=== PATIENT | female | born 1945 | race Caucasian/White ===

== ENCOUNTER 2016-09-09 12:46 | Outpatient (CLI) ==
[2015-12-17 17:36] VITALS: BMI 34.7
--- NOTE | 2016-09-10 02:56 | MRI ---
EXAM: MRI lumbar spine without IV contrast. DATE: 09/09/2016. HISTORY: Lumbar back pain radiating to right hip area. TECHNIQUE: Sagittal and axial T1W and T2W sequences of the lumbar spine along with sagittal IR and coronal T2W sequences were obtained using 1.2 Sonia magnet. No IV contrast. COMPARISON: CT L-spine 01/30/2014. MRI L-spine 08/08 2014. FINDINGS: There are five [id number] lumbar vertebra. A 22 degree leftward curvature of the art mbar spine is present, with the apex of curvature at L2-3. A 3.5 mm anterior subluxation of L1 rela tive to T12, a 2 mm anterolisthesis of L3 relative to L4, a 2.2 mm anterolisthesis of L4 relative to L5 are similar to previous MRI. No other subluxation, acute fracture, osseous malignancy, or pars i nterarticularis defect is identified. Moderate/large osteophytes are observed in the thoracolumbar spine. Small limbus body is demonstrated at the anterior aspect superior endplate of L5. Minor ant erior wedging of the T11 vertebral body is chronic. Spinous process arthritis is noted at L3-4 and L4-5. Bone marrow signal is overall normal. Chronic Schmorl's node at L3 inferior endplate is rede monstrated. Mild T10-11, mild T11-12: Mild T12-L1, minor L2-3, moderate L4-5, and marked L5-S1 dis c space narrowing is detected. No sacral fracture or stress reaction is evident. SI joints are unr emarkable. Conus medullaris terminates at L1. Visible spinal cord is normal. No retroperitoneal lymphadenopathy, paraspinal mass, or aortic aneurysm is detected. Atheroscleroti c plaques are scattered in the aortic wall. Psoas muscles are normal. There is mild upper lumbar a nd moderate lower lumbar bilateral posterior paraspinal muscle atrophy. Right lobe liver measures g reater than 17 cm in length, without distinct hepatic neoplasm. Visible portions of the liver, sple en, adrenal glands and kidneys reveal no distinct abnormality; however, these structures are limited by breathing motion artifacts. Segmental analysis: T10-11: Sagittal images reveal moderate concentric disc bulge, mild bilateral facet arthropathy and ligamentum flavum hypertrophy causing moderate central canal stenosis, and probable moderate/marked right and moderate left foraminal stenosis. Foramina are not completely visualized. T11-12: Sagittal images reveal small concentric disc bulge, mild facet arthropathy, and mild right foraminal stenosis. No central canal stenosis. T12-L1: Mild anterior subluxation of L1, moderate concentric disc bulge, mild facet arthropathy and dorsal epidural fat cause mild central canal stenosis, moderate right foraminal stenosis, and marke d left foraminal stenosis. L1-2: Small bilobed posterior to foraminal disc bulge, moderate facet arthropathy, mild ligamentum flavum hypertrophy and dorsal epidural fat cause triangulation of the canal, mild right foraminal st enosis, and minor left foraminal encroachment. L2-3: Small concentric disc bulge, moderate bilateral facet arthropathy, and mild ligamentum flavum hypertrophy cause mild central canal stenosis, mild right foraminal stenosis, and minor left forami nal narrowing. L3-4: Minor anterior subluxation of L3, moderate right facet arthropathy, marked left facet arthrop athy, and moderate ligamentum flavum hypertrophy cause mild central canal stenosis, mild right robbie inal stenosis, and minor left foraminal narrowing. L4-5: Minor anterior subluxation of L4, small concentric disc bulge, mild right facet arthropathy, moderate left facet arthropathy, and moderate ligamentum flavum hypertrophy cause mild central canal stenosis and mild bilateral foraminal stenoses. Each L4 nerve root contacts the disc bulge lateral to the foramen. L5-S1: Posterior midline to left foraminal disc bulge, superimposed midline disc protrusion (4 mm A P x 14 mm transverse), minor right facet arthropathy and mild/moderate left facet arthropathy cause mild central canal stenosis and marked left foraminal stenosis superiorly (with compression of the e xiting left L5 nerve root in the foramen). The disc protrusion contacts each S1 nerve root as the n erves or exiting the thecal sac. IMPRESSIONS: 1. Thoracolumbar moderate levoscoliosis, moderate spondylosis, multilevel facet arthropathy, minor subluxations due to facet disease, and multilevel DDD - - similar to July 2014. 2. Multilevel foraminal stenosis. Bilateral L4 and left L5 nerve roots compromised near the forame n, and could be sources for pain/radiculopathy. 3. Multilevel central canal stenosis (T10-11: Moderate. T12-L1: Mild. L1-2: Triangulation of marcel l. L2-3: Mild. L3-4: Mild. L4-5: Mild. L5-S1: Mild). 4. Spinous process arthritis (mild). 5. Small, chronic Schmorl's node at L3. 6. Hepatomegaly - similar to January 2014. 7. Abdominal aortic atherosclerosis (mild).
== END 2016-09-09 12:47 | disposition home or self-care (01) ==
LOC: RAD 12:46
PROVIDERS: ATTEND Internal Medicine
DX: M54.5 Low back pain (principal)

== ENCOUNTER 2016-10-12 13:00 | Outpatient (RCR) ==
[2015-12-17 17:36] VITALS: BMI 34.7
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
--- NOTE | 2016-10-06 12:52 | RS.OPPTDN ---
Subjective Date of Note: 10/06/16 Visit #: 2 Date of Evaluation: 09/30/16 Payer Source: MEDICARE Treatment Diagnosis: Lumbago Current Subjective/complaints:: Patient reports no pain at rest if still,but pain is present if she changes positions,especially with rotation . Pain Assessment - Pain Description Pain Location: right low back/hip Pain Description: Chronic Current Pain Intensity: not rated Other Comments regarding Pain:: More on the R lumbar and hip today - Treatment Modality: Ultrasound Parameters/Method Applied: 10 mins. @ 1.5 w/cm2 to lumbar,continuous mode. Patient Position: Left Sidelying - Heat/Cryotherapy Treatment: Hot Pack (20 mins. prior to US.) Interventions - Exercise/Activities/Manual Therapy Exercises/Activities: 15 mins. total ,patient education and lumbar AAROM: Alternating KTC, LTR and posterior pelvic tilt ,90/90 hamstring stretches. Total minutes of Exercise: 15 Manual Therapy: NA Total minutes of Manual Therapy: 0 HOME EXERCISE PROGRAM: Pelvic tilts,SKTC,LTR,hamstring stretches in PAIN FREE ROM. - Charges Total Direct Minutes: 25 Total Treatment Time: 45 Procedures billed for this date of service:: hp,US,ex 1 Assessment: Patient has good hamstring extensibility bilaterally today,also tolerates LTR in hooklying position.She repirts feeling relief and "looser" as she exits clinic.She is attentive and motivated to improve,understands to not push through sharp pain as she exercises. Patient Education: Education of diagnosis, Body/Joint mechanics, Home Exercise Program, Home Safety, Activity Modification, Education of Plan of Care Patient demonstrates compliance with HEP?: Yes Short Term Goals Goal #1: Pain intermittent in nature. Goal to be met by: 10/15/16 Progress towards Goal:: Progressing Goal #2: Patient to ambulate with erect posture. Goal to be met by: 10/15/16 Goal #3: Lumbar AROM WFLs with minimal pain. Goal to be met by: 10/15/16 Progress towards Goal:: Progressing Goal #4: Independent with basic HEP. Goal to be met by: 10/15/16 Progress towards Goal:: Progressing Jail Goals Goal #1: Patient independent in advanced HEP for DC. Goal to be met by: 10/29/16 Goal #2: Score on Oswestry LBP scale improved to 25. Goal to be met by: 10/29/16 Goal #3: Patient ambulates with equal WB & WS. Goal to be met by: 10/29/16 Goal #4: Patient able to sleep without interruption from low back pain. Goal to be met by: 10/29/16 Plan PLAN OF CARE EXPIRES ON:: 10/29/16 ORDER # VISITS AND/OR THROUGH DATE: 10/29/2016 PLAN: Continue Plan of Care
--- NOTE | 2016-10-08 11:36 | RS.CXNS ---
Date of scheduled appointment: 10/08/16 Type: Cancel Reason for Cancel/NS: sick
--- NOTE | 2016-10-12 13:58 | RS.OPPTDN ---
Subjective Date of Note: 10/12/16 Visit #: 3 Date of Evaluation: 09/30/16 Payer Source: MEDICARE Treatment Diagnosis: Lumbago Current Subjective/complaints:: Reports not feeling as well this week.Her pain is mostly in the R lumbar and R hip region.She requests abbreviated today due to another appt. after PT. Pain Assessment - Pain Description Pain Location: right low back/hip Pain Description: Dull, Aching, Chronic Current Pain Intensity: 01/31 - Treatment Modality: Ultrasound Parameters/Method Applied: 10 mins. @ 1.5 w/cm2,continuous mode to lumbar and R gluteals. - Heat/Cryotherapy Treatment: Hot Pack (20 mins. prior to US) Interventions - Exercise/Activities/Manual Therapy Exercises/Activities: N/A today(due to patient having another appt.). Total minutes of Exercise: 0 Manual Therapy: NA Total minutes of Manual Therapy: 0 HOME EXERCISE PROGRAM: Pelvic tilts,SKTC,LTR,hamstring stretches in PAIN FREE ROM. - Charges Total Direct Minutes: 10 Total Treatment Time: 30 Procedures billed for this date of service:: hp,US Assessment: Patient reports relief after haet,modalities today.We discussed to continue her HEP in pain free ROM.No exercises done at this session due to patient having another appt. Patient Education: Education of diagnosis, Body/Joint mechanics, Home Exercise Program, Home Safety, Activity Modification, Education of Plan of Care Short Term Goals Goal #1: Pain intermittent in nature. Goal to be met by: 10/15/16 Progress towards Goal:: Progressing Goal #2: Patient to ambulate with erect posture. Goal to be met by: 10/15/16 Goal #3: Lumbar AROM WFLs with minimal pain. Goal to be met by: 10/15/16 Progress towards Goal:: Progressing Goal #4: Independent with basic HEP. Goal to be met by: 10/15/16 Progress towards Goal:: Progressing Hand Clipper Goals Goal #1: Patient independent in advanced HEP for DC. Goal to be met by: 10/29/16 Goal #2: Score on Oswestry LBP scale improved to 25. Goal to be met by: 10/29/16 Goal #3: Patient ambulates with equal WB & WS. Goal to be met by: 10/29/16 Goal #4: Patient able to sleep without interruption from low back pain. Goal to be met by: 10/29/16 Plan PLAN OF CARE EXPIRES ON:: 10/29/16 ORDER # VISITS AND/OR THROUGH DATE: 10/29/2016 PLAN: Continue Plan of Care
--- NOTE | 2016-10-21 13:09 | RS.CSNOTE ---
PT Case Note Date of Note: 10/21/16 Title of document: Patient status and D/C plan Note: Patient seen for eval. and 2 visits.Patient was admitted to hospital,then discharged home ,but no PT appts. made.
--- NOTE | 2016-11-12 13:14 | RS.QUICKDC ---
Discharge from PT Date of Discharge: 10/21/16 Number of Visits: 3 Reason for Discharge: Patient attended the initial evaluation and 2 additional treatment sessions. She was hospitalized and afterward, did not make any further appointments. Plan of care not complete and goals not met due to lack of attendance. Patient discharged at this time. Mobility D/c CL. Mobility Goal CK
== END 2016-10-22 ==
PROVIDERS: ATTEND Internal Medicine
DX: M54.5 Low back pain (principal); G89.29 Other chronic pain

== ENCOUNTER 2016-10-13 14:14 | Inpatient (IN) | payer OTHER ==
[2016-10-13] MEDS ORDERED: TYLENOL PO PRN (14:40)
[2016-10-13] MEDS ORDERED: MORPHINE 4 MG/ML SYRINGE IVP PRN (14:40)
[2016-10-13] MEDS ORDERED: NITROSTAT SL PRN (14:40)
[2016-10-13] MEDS ORDERED: ATROPINE SULFATE PFS IVP PRN (14:40)
[2016-10-13] MEDS ORDERED: VISTARIL INJ IM PRN (14:40)
[2016-10-13 14:52] VITALS: BMI 32.5
[2016-10-13] MEDS: DEXTROSE 5%-1/2NS IV SOLUTION 1,000 ML IV SCH (15:13)
[2016-10-13 15:22] LABS: BASOPHILS % (AUTO) 0.8 % (0.0-3.0); EOSINOPHILS # (AUTO) 0.1 K/ul (0.0-0.7); EOSINOPHILS % (AUTO) 2.7 % (0.0-7.0); HEMATOCRIT 40.7 % (37.0-47.0); HEMOGLOBIN 14.1 g/dl (12.0-16.0); IMMATURE GRANULOCYTE % (AUTO) 0.2 % (0.0-5.0); LYMPHOCYTES # (AUTO) 1.7 K/uL (0.60-3.4); LYMPHOCYTES % (AUTO) 35.4 (10.0-50.0); MEAN CORPUSCULAR HEMOGLOBIN 31.4 pg (27.0-31.0); MEAN CORPUSCULAR HGB CONC 34.6 (31.8-35.4); MEAN CORPUSCULAR VOLUME 90.6 fl (81.0-99.0); MONOCYTES # (AUTO) 0.4 K/uL (0.4-2.0); MONOCYTES % (AUTO) 8.8 (0-10); NEUTROPHILS # (AUTO) 2.5 K/ul (2.0-6.9); NEUTROPHILS % (AUTO) 52.1; PLATELET COUNT 259 10^3/uL (140-440); RED BLOOD COUNT 4.49 10^6/ul (4.20-5.40)
[2016-10-13] MEDS: VALIUM PO SCH ×2 (15:28→20:30)
[2016-10-13 16:13] LABS: CREATININE 1.03 mg/dL (0.60-1.30)
[2016-10-13] MEDS ORDERED: FLEXERIL PO PRN (16:13)
[2016-10-13] MEDS ORDERED: PROAIR HFA IH PRN (16:13)
[2016-10-13 16:30] LABS: ALANINE AMINOTRANSFERASE 9 U/L (12-78); ALBUMIN 3.8 g/dL (3.4-5.0); ALBUMIN/GLOBULIN RATIO 1.27; ALKALINE PHOSPHATASE 93 U/L (53-141); ANION GAP 11.2; ASPARTATE AMINO TRANSFERASE 11 U/L (15-37); BILIRUBIN,TOTAL 0.84 mg/dL (0.00-1.20); BLOOD UREA NITROGEN 12 mg/dL (7-18); BUN/CREATININE RATIO 11.65; CALCIUM 9.2 mg/dL (8.2-10.2); CARBON DIOXIDE 26 mmol/L (23-31); CHLORIDE 101 mmol/L (98-107); CREATINE KINASE 87 U/L; GLUCOSE 140 mg/dL (82-115); MYOGLOBIN 36 ng/ml; POTASSIUM 4.2 mmol/L (3.5-5.10); SODIUM 134 mmol/L (136-145); TOTAL PROTEIN 6.8 g/dL (5.8-8.1)
--- NOTE | 2016-10-13 16:51 | DI ---
EXAM: CHEST FRONTAL AND LATERAL VIEWS HISTORY: Chest pain. COMPARISON: 01/30/2016 FINDINGS: Heart size is upper limit normal, stable. Mild aortic ectasia. Mild hyperinflation. Ch ronic-appearing interstitial changes. No acute infiltrates are seen. There is no consolidation, vis ible pleural fluid or pneumothorax. Bones reveal no acute fracture. IMPRESSION: No acute cardiopulmonary process.
[2016-10-13] MEDS: NORCO 10-325 PO SCH ×2 (17:20→20:30)
--- NOTE | 2016-10-13 18:49 | MRI ---
EXAM: Brain MRI with and without intravenous contrast. HISTORY: Lightheadedness. COMPARISON: Brain MRI 10/15/2008. TECHNIQUE: Multiplanar, multisequence MR images were acquired of the brain before and after adminis tration of intravenous contrast. FINDINGS: The midline structures are central and there is a tim cisterna magna. The ventricles and sulci are generally normal in size. There are no abnormal extra-axial fluid collections. The brain parenchyma has no diffusion restriction to suggest acute hypoperfusion or infarction. Ther e is a thin rim of periventricular T2 hyperintensity. Small T2 hyperintensities are present in the supratentorial white matter and and juana. These findings are consistent with mild leukomalacia whic h has progressed compared to 10/15/2008. There is no abnormal dark gradient echo signal. After adm inistration of contrast, no enhancing lesions are identified. The corpus callosum is normal. The pi tuitary gland is small with homogeneous contrast enhancement. The infundibulum is midline. There are no intraorbital masses. There has been previous lens surgery bilaterally. Focal mucosal thickening is present in a posterior left ethmoid air cell. Remainder of the paranasa l sinuses, middle ears and mastoids are clear. There is no abnormal contrast enhancement in the int ernal auditory canals or labyrinthine structures. Flow voids are present in the major intracranial arteries and dural venous sinuses. IMPRESSION: 1. Mild leukomalacia likely due to chronic ischemic small vessel disease which has progressed nestor red to the prior MRI. 2. No intracranial mass, hemorrhage or acute cerebral infarct.
[2016-10-13 20:43] LABS: BILIRUBIN,URINE Negative (NEGATIVE); KETONES,URINE Negative (NEGATIVE); LEUKOCYTE ESTERASE ,URINE Negative (NEGATIVE); NITRITE,URINE Negative (NEGATIVE); PROTEIN,URINE Negative (NEGATIVE); URINE, BLOOD Negative (NEGATIVE)
[2016-10-13 20:44] LABS: ADD URINE MICROSCOPIC NO
[2016-10-13 23:10] LABS: CREATINE KINASE 79 U/L; MYOGLOBIN 35 ng/ml
--- NOTE | 2016-10-13 23:15 | US ---
EXAM: Carotid ultrasound. HISTORY: Long-term tobacco use, weakness, dizziness, hypertension COMPARISON: None. FINDINGS: Right cervical carotid: There is minimal atherosclerotic plaque in the right internal puentes tid artery. Peak systolic velocity right ICA 0.7 meters per second. Velocity right CCA 0.6 meters per second. Velocity ratio right ICA: CCA 1.2. Left cervical carotid: There is minimal atherosclerotic plaque in the left internal carotid artery. Peak systolic velocity left ICA 0.8 meters per second. Velocity left CCA 0.6 meters per second. V elocity ratio left ICA: CCA 1.2. IMPRESSION: 1. There is mild atherosclerotic plaque in the right internal carotid artery. There is less than 5 0% stenosis of the right internal carotid artery. 2. There is mild atherosclerotic plaque in the left internal carotid artery. There is less than 50 % stenosis of the left internal carotid artery. 3. Vascular flow in the right and left vertebral artery is antegrade.
[2016-10-14] MEDS: DEXTROSE 5%-1/2NS IV SOLUTION 1,000 ML IV SCH ×2 (04:02→16:56)
[2016-10-14] MEDS: VALIUM PO SCH ×3 (05:16→21:50)
[2016-10-14 05:54] LABS: BASOPHILS % (AUTO) 0.8 % (0.0-3.0); EOSINOPHILS # (AUTO) 0.2 K/ul (0.0-0.7); EOSINOPHILS % (AUTO) 4.8 % (0.0-7.0); HEMATOCRIT 39.9 % (37.0-47.0); HEMOGLOBIN 13.7 g/dl (12.0-16.0); IMMATURE GRANULOCYTE % (AUTO) 0.4 % (0.0-5.0); LYMPHOCYTES # (AUTO) 1.8 K/uL (0.60-3.4); LYMPHOCYTES % (AUTO) 37.4 (10.0-50.0); MEAN CORPUSCULAR HEMOGLOBIN 31.1 pg (27.0-31.0); MEAN CORPUSCULAR HGB CONC 34.3 (31.8-35.4); MEAN CORPUSCULAR VOLUME 90.5 fl (81.0-99.0); MONOCYTES # (AUTO) 0.5 K/uL (0.4-2.0); MONOCYTES % (AUTO) 10.1 (0-10); NEUTROPHILS # (AUTO) 2.2 K/ul (2.0-6.9); NEUTROPHILS % (AUTO) 46.5; PLATELET COUNT 229 10^3/uL (140-440); RED BLOOD COUNT 4.41 10^6/ul (4.20-5.40); WHITE BLOOD COUNT 4.76 K/ul (4.6-10.2)
[2016-10-14 06:06] LABS: ALBUMIN 3.4 g/dL (3.4-5.0); ALBUMIN/GLOBULIN RATIO 1.31; BILIRUBIN,TOTAL 0.88 mg/dL (0.00-1.20); BUN/CREATININE RATIO 13.51; CALCIUM 8.8 mg/dL (8.2-10.2); CREATININE 0.74 mg/dL (0.60-1.30)
[2016-10-14] MEDS ORDERED: DOBUTAMINE 250 ML IV ONE (07:24)
[2016-10-14] MEDS ORDERED: ATROPINE SULFATE PFS ONE (07:24)
[2016-10-14] MEDS ORDERED: ASPIRIN CHEWABLE PO SCH (08:00)
[2016-10-14] MEDS ORDERED: VITAMIN D3 PO SCH (09:00)
[2016-10-14] MEDS ORDERED: [UNRECOGNIZED DRUG - OTHER] PO SCH (09:00)
[2016-10-14] MEDS ORDERED: NON-FORMULARY MEDICATION (Escitalopram Oxalate [Lexapro] 20 MG) PO SCH ×22 (09:00)
[2016-10-14] MEDS ORDERED: CALCIUM CARBONATE PO SCH (09:00)
[2016-10-14] MEDS: MEVACOR PO SCH (09:03)
[2016-10-14] MEDS: COZAAR PO SCH (09:03)
[2016-10-14] MEDS: CALCIUM 500 + VIT D 200 MG TABLET PO SCH (09:03)
[2016-10-14] MEDS: ASPIRIN EC PO SCH (09:03)
[2016-10-14] MEDS: NORCO 10-325 PO SCH ×4 (09:03→21:50)
[2016-10-14] MEDS: LEXAPRO PO SCH (09:03)
[2016-10-14] MEDS: CYANOCOBALAMIN 1000 MG PO SCH (09:05)
--- NOTE | 2016-10-14 10:31 | HP ---
DATE OF SERVICE: 10/13/16 REASON FOR HOSPITALIZATION: Chest pain HISTORY OF PRESENT ILLNESS: This is a 71-year-old female with complaint of chest pain, sharp, inframammary off and on. The patient also is light-headed with near syncopal type feeling. The patient has a lot of stress with in home. She is anxious. No symptoms of CHF. REVIEW OF SYSTEMS: CONSTITUTIONAL: No fever, no fatigue. HEENT: No sinus drainage, no sore throat. RESPIRATORY: No cough, no congestion. CARDIOVASCULAR: No atypical chest pain for coronary artery disease. No angina , CHF symptoms, palpitations or shortness of breath. GASTROINTESTINAL: No melena or abdominal pain. No GERD. GENITOURINARY: No hematuria, no polyuria. ACCELERATOR OPERATOR: No blackout, no dizziness, no headache, no double vision. MUSCULOSKELETAL: Osteoarthritic pain. ENDOCRINE: No weight loss, no weight gain. SKIN: Not dry, no rash. PSYCHIATRIC: Anxious. Normal behavior. No depression, no suicidal thoughts, no homicidal thoughts. PAST MEDICAL HISTORY: Hypertension Dyslipidemia COPD DJD spine PAST SURGICAL HISTORY: Gallbladder Partial hysterectomy Appendectomy Neck tumor - benign SOCIAL HISTORY: ; smoker - one pack per day for 40+years; no alcohol use. The patient is retired. No ilicit drug use. MEDICATIONS: Lovastatin (Mevacor) 40 mg p.o. daily Aspirin 81 mg p.o. daily with meal Losartan (Cozaar) 50 mg p.o. daily Escitalopram (Lexapro) 20 mg p.o. daily Calcium Carbonate/Vitamin D3 500 mg p.o. daily Cyanocobalamin (Vitamin B12) 1,000 mg p.o. daily Cyclobenzaprine (Flexeril) 10 mg p.o. daily p.r.n. Albuterol (Proventil HFA) one inhaler IH b.i.d. p.r.n. Hydrocodone/Acetaminophen ([place] 10-325) one each p.o. q.i.d. ALLERGIES: LIPITOR, CRESTOR, ZOCOR MENSTRUAL HISTORY: Partial hysterectomy. Mammogram 10/07 at [facility] [place] PHYSICAL EXAMINATION: V/S: Pulse 70, BP 128/80, temperature 98.0. 02 sat 100%. Height 5'9", weight 223.6 pounds. BMI 33. GENERAL APPEARANCE: Oriented times three. HEENT: Normal. NECK: No JVP, no bruits. RESPIRATORY: Decreased Breath sounds. Lungs are clear. CARDIOVASCULAR: S1, S2, no S3, no murmurs. No cyanosis, clubbing. No ascites. GI/ABDOMEN: No tenderness. Bowel sounds are active. EXTREMITIES: No edema, pulses +1, equal. ACCELERATOR OPERATOR: Deep tendon reflexes, sensory, motor and gait all normal. RECTAL/PELVIC: Colonoscopy screening refused. Pelvic: Partial hysterectomy. Breasts 3/16 [facility]. Colocare refused. ASSESSMENT: 1. DIZZINESS/CHEST PAIN/LIGHTHEADED 2. SEVERE DJD SPINE 3. HYPERTENSION 4. DYSLIPIDEMIA 5. DEPRESSION 6. DJD SPINE 7. COPD/SMOKING 8. GERD 9. HYPERGLYCEMIA 10. BACK PAIN - SCIATICA PLAN: 1. Routine telemetry orders 2. Carotid scan/MRI of brain with contrast 3. Echocardiogram 4. Dobutamine stress echo 5. Valium 2 mg p.o. now and t.i.d. 6. T4, TSH, B12 7. Continue all home medications 8. PFT 9. 1000 cc D5 1/2 NS 12 hourly 10. Admit EDUCATION CARRIED OUT ABOUT: Diabetes mellitus and its complications, hypertension and its complications, CAD and its risk factors. Also CHF education carried out. ADA guidelines for lipids, BP and A1C glucose discussed. TIME SPENT: More than 70 minutes. MTDD
--- NOTE | 2016-10-14 14:32 | DOBSTECHO ---
Ordering Physician: DR. DIAZ Date of Test: 10/14/2016 Reason for Examination: CHEST PAIN, DIZZINESS, HYPERTENSION Cardiac History: Current Medications: TYLENOL, NORCO, PROAIR, ASPIRIN, CALCIUM/VITAMIN D, FLEXERIL, VALIUM, LEXAPRO, COZAAR, MEVACOR, VITAMIN B12 Height: 70" Weight: 220 Glaucoma: NO Oxygen Saturation: 95% AT REST ON ROOM AIR Resting EKG: Target Heart Rate: 127 / 150 ST Segment Stage Time HR BPM BP mmhg Rhythm +/- Up Down Comments/Symptoms Control Sitting 67 160/90 SR X NONE Dobutamine 250mg/D5W 5cmg/KG/mn 10cmg/KG/mn 3" 74 160/98 SR X NONE 15cmg/KG/mn 2" 117 SR X NONE 20cmg/KG/mn 0:19 127 SR X NONE 25cmg/KG/mn 30cmg/KG/mn 35cmg/KG/mn 40cmg/KG/mn Time: 3" HR B/P Time: 5" HR B/P Time: 8" HR B/P Recovery 108 Recovery 96 176/90 Recovery 81 Total Time: 5 MINUTES AND 19 SECONDS Maximum Heart Rate Reached: 127 Interpretation: 1. NO EVIDENCE OF ISCHEMIA BY ST-T WAVE 2. NO CHEST PAIN OR DISCOMFORT 3. NORMAL LEFT VENTRICULAR CONTRACTILITY RESTING AND DURING DOBUTAMINE INFUSION MTDD
--- NOTE | 2016-10-14 14:47 | ECHO2D ---
Date of Exam: 10/14/2016 Ordering Physician: DR. DIAZ Reason for Echo: CHEST PAIN, DIZZINESS M-Mode Normal Adult Results LV Dimensions Normal Adult Results AoV Opening excursions >1.6 >1.6 LVEDD-base- 3.5-5.8 5.6 Ao root dimensions 2.0-3.7 3.3 LVESD-base- 3.1-4.6 L. Atrium dimensions 1.9-3.8 3.8 Post. Wall thickness 0.8-1.1 1.1 IV septum (thickness) 0.7-1.2 1.0 Post. Wall excursion 0.72-1.3 NORMAL Septal motion NORMAL Systolic motion R. Ventricular cavity 1.5-2.0 NORMAL LVEF 60% 47% Paradoxical septal wall motion NORMAL 2-D :NORMAL LEFT VENTRICULAR CONTRACTILITY AND NORMAL VALVES. 2-D M Mode Echocardiogram was performed using apical four chamber and left parasternal long and short axis views. Mitral, tricuspid and aortic valves appear to be normal. Contractility of the left ventricle seems to be normal, so is the cavity size. Left atrial cavity size and aortic root appear to be normal. There is no pericardial effusion. There is no thrombus noted in the left ventricular or left aortic cavity. No mitral valve prolapse noted. M-MODE: MV: NORMAL AV: NORMAL TV: NORMAL PV: CHAMBER SIZE: NORMAL WALL MOTION: NORMAL PERICARDIUM: NORMAL INTERPRETATION: 1. NORMAL 2D M MODE ECHOCARDIOGRAM MTDD
--- NOTE | 2016-10-14 14:55 | ECHOSTRESS ---
Date of Exam: 10/14/2016 Ordering Physician: DR. DIAZ Reason for Echo: CHEST PAIN, DIZZINESS, STRESS TEST = NO ISCHEMIA M-Mode Normal Adult Results LV Dimensions Normal Adult Results AoV Opening excursions >1.6 LVEDD-base- 3.5-5.8 Ao root dimensions 2.0-3.7 LVESD-base- 3.1-4.6 L. Atrium dimensions 1.9-3.8 Post. Wall thickness 0.8-1.1 IV septum (thickness) 0.7-1.2 Post. Wall excursion 0.72-1.3 Septal motion Systolic motion R. Ventricular cavity 1.5-2.0 LVEF 60% Paradoxical septal wall motion 2-D: NORMAL LEFT VENTRICULAR CONTRACTILITY RESTING AND DURING DOBUTAMINE INFUSION M-MODE: MV: AV: TV: PV: CHAMBER SIZE: WALL MOTION: NORMAL LEFT VENTRICULAR CONTRACTILITY RESTING AND DURING DOBUTAMINE INFUSION PERICARDIUM: INTERPRETATION: 1. NORMAL LEFT VENTRICULAR CONTRACTILITY RESTING AND DURING DOBUTAMINE INFUSION MTDD
[2016-10-15 05:55] VITALS: TEMP 97.7
[2016-10-15] MEDS: DEXTROSE 5%-1/2NS IV SOLUTION 1,000 ML IV SCH (06:00)
[2016-10-15] MEDS: VALIUM PO SCH (06:00)
[2016-10-15 06:11] LABS: BASOPHILS # (AUTO) 0.1 K/uL (0-0.2); BASOPHILS % (AUTO) 1.3 % (0.0-3.0); EOSINOPHILS # (AUTO) 0.2 K/ul (0.0-0.7); EOSINOPHILS % (AUTO) 3.9 % (0.0-7.0); HEMATOCRIT 40.5 % (37.0-47.0); HEMOGLOBIN 13.7 g/dl (12.0-16.0); IMMATURE GRANULOCYTE % (AUTO) 0.4 % (0.0-5.0); LYMPHOCYTES # (AUTO) 2.1 K/uL (0.60-3.4); LYMPHOCYTES % (AUTO) 46.6 (10.0-50.0); MEAN CORPUSCULAR HEMOGLOBIN 30.9 pg (27.0-31.0); MEAN CORPUSCULAR HGB CONC 33.8 (31.8-35.4); MEAN CORPUSCULAR VOLUME 91.4 fl (81.0-99.0); MONOCYTES # (AUTO) 0.5 K/uL (0.4-2.0); MONOCYTES % (AUTO) 11.5 (0-10); NEUTROPHILS # (AUTO) 1.7 K/ul (2.0-6.9); NEUTROPHILS % (AUTO) 36.3; PLATELET COUNT 223 10^3/uL (140-440); RED BLOOD COUNT 4.43 10^6/ul (4.20-5.40); WHITE BLOOD COUNT 4.59 K/ul (4.6-10.2)
[2016-10-15 06:20] VITALS: BP 162/86
[2016-10-15 06:39] LABS: ALBUMIN 3.3 g/dL (3.4-5.0); ALBUMIN/GLOBULIN RATIO 1.27; ANION GAP 9.1; BILIRUBIN,TOTAL 0.92 mg/dL (0.00-1.20); BUN/CREATININE RATIO 9.87; CALCIUM 8.9 mg/dL (8.2-10.2); CREATININE 0.81 mg/dL (0.60-1.30); POTASSIUM 4.1 mmol/L (3.5-5.10); TOTAL PROTEIN 5.9 g/dL (5.8-8.1)
[2016-10-15] MEDS: MEVACOR PO SCH (08:50)
[2016-10-15] MEDS: ASPIRIN EC PO SCH (08:50)
[2016-10-15] MEDS: CYANOCOBALAMIN 1000 MG PO SCH (08:51)
[2016-10-15] MEDS: CALCIUM 500 + VIT D 200 MG TABLET PO SCH (08:51)
[2016-10-15] MEDS: LEXAPRO PO SCH (08:51)
[2016-10-15] MEDS: COZAAR PO SCH (08:51)
[2016-10-15] MEDS: NORCO 10-325 PO SCH (08:51)
--- NOTE | 2016-10-15 09:40 | PN ---
DATE OF SERVICE: 10/14/16 SUBJECTIVE: 71-year-old white female hospitalized with left inframammary pain, pain going to the neck unrelated to exertion, sharp. She also had some dizziness, light- headedness. She has been going through a lot of stress lately. The patient has several risk factors for coronary artery disease like hypertension, dyslipidemia , family history of heart disease, smoking, BMI of more than 30, sedentary lifestyle. REVIEW OF SYSTEMS: CONSTITUTIONAL: No night sweats. No fatigue, malaise, lethargy. No fever or chills. HEENT: Eyes: No visual changes. No eye pain. No eye discharge. ENT: No runny nose. No epistaxis. No sinus pain. No sore throat. No odynophagia. No congestion. RESPIRATORY: No cough, no congestion. No hemoptysis. CARDIOVASCULAR: No angina symptoms. No CHF symptoms. No atypical chest pain for CAD. No palpitations. No shortness of breath. No PND, no orthopnea. GASTROINTESTINAL: No abdominal pain. No nausea or vomiting. No diarrhea or constipation. No hematemesis. No hematochezia. GENITOURINARY: No urgency. No frequency. No dysuria. No hematuria. No obstructive symptoms. No discharge. No pain. No significant abnormal bleeding. MUSCULOSKELETAL: No musculoskeletal pain; no joint swelling. NEUROLOGICAL: No headache. No neck pain. No syncope. No seizures. No dizziness. PSYCHIATRIC: Not anxious. No depression. No suicidal thoughts. No homicidal thoughts. SKIN: No rash. No lesions. No wounds. ENDOCRINE: No unexplained weight loss. No weight gain. HEMATOLOGIC/LYMPHATIC: No anemia. No purpura. No petechiae. No prolonged or excessive bleeding. No palpable lymph nodes. PHYSICAL EXAMINATION: GENERAL: The patient is oriented to time, place and person. VITAL SIGNS: Temperature 97.1, pulse 70, respiratory rate 14, BP 139/86, pulse ox 93%. HEENT: Head normocephalic, atraumatic. Eyes: Extraocular muscles are intact. Pupils are equal, round and reactive to light and accommodation. Ears: No lesions. Nose appeared normal. Throat: No exudate or erythema. NECK: Supple. No JVD, no carotid bruit. No lymphadenopathy or thyromegaly. LUNGS: Decreased breath sounds. Clear to auscultation. Percussion note normal. Chest symmetrical. HEART: S1, S2, no S3. No murmurs. No cyanosis or clubbing. No ascites. Pulses: Dorsalis pedis and posterior tibial pulses +1 to +2 both sides. ABDOMEN: Soft. Nontender. Bowel sounds active. No CVA tenderness. No mass felt. EXTREMITIES: No edema. Full range of motion of all extremities, equal. NEUROLOGIC: No focal deficit. Cranial nerves II through XII are grossly intact. No headache, no double vision or headache. SKIN: Not dry. Intact. Turgor - normal. LYMPHATIC: No palpable lymph nodes/no lymphedema. MUSCULOSKELETAL: Normal joints with no swelling. Muscle tone is normal. LABS: Hemoglobin 13.7, hematocrit 39, WBC 4,700, normal differential. Creatinine 0.7, BUN 10, potassium 4, glucose 118. T4, TSH normal. The patient's cardiac markers are negative. EKG - sinus rhythm no acute changes. Telemetry - no ST-T wave change. The patient had an echo done which was normal LV contractility. Dobutamine stress echo was negative for ischemia. ASSESSMENT: 1. Chest pain seems to be noncardiac with negative stress echo. Other findings are negative. 2. Dizziness/lightheadedness, haven't reviewed the results of MRI and carotid scan. PLAN: 1. The patient explained about smoking and its ill effects, counseling done to stop smoking. 2. The patient advised to join exercise program 30 to 60 minutes a day five days a week. Also weight-bearing exercise. BMI 32. Weight loss diet discussed. CONDITION: Stable. TIME SPENT: More than 30 minutes. Plan and coordination of the patient's care discussed in the presence of nurse. SUSAN
--- NOTE | 2016-10-15 10:16 | CM.DICTOOL ---
ADMISSION: 10/13/16 14:14 DISCHARGE: OCTOBER 15, 2016 DATE OF SERVICE: 10/15/16 FINAL DIAGNOSIS Chest pain Lightheadedness Dizziness Hypertension COPD Dyslipidemia Hyperglycemia DJD spine Sciatica GERD Tobacco Use Cholecystectomy Hysterectomy LAST VITALS Temp Pulse Resp BP Pulse Ox 97.7 F 63 18 162/86 H 98 10/15/16 05:50 10/15/16 05:50 10/15/16 07:24 10/15/16 06:20 10/15/16 05:50 ACTIVE HOME MEDICATIONS Acetaminophen/Hydrocodone Bitart ([place] 10-325) 1 tab PO QID [facility] Last Admin: 10/15/16 08:51 Dose: 1 tab Albuterol Sulfate (Proair Hfa) 1 puff IH BID PRN PRN Reason: shortness of air Aspirin (Aspirin Ec) 81 mg PO DAILYWM [facility] Last Admin: 10/15/16 08:50 Dose: 81 mg Calcium/Vitamin D (Calcium 500 + Vit D 200 Mg Tablet) 1 each PO DAILY [facility] Last Admin: 10/15/16 08:51 Dose: 1 each Cyclobenzaprine HCl (Flexeril) 10 mg PO DAILY PRN PRN Reason: back spasms Escitalopram Oxalate (Lexapro) 20 mg PO DAILY [facility] Last Admin: 10/15/16 08:51 Dose: 20 mg Losartan Potassium (Cozaar) 50 mg PO DAILY [facility] Last Admin: 10/15/16 08:51 Dose: 50 mg ( dose to increase to 100 mg daily) Lovastatin (Mevacor) 40 mg PO DAILY [facility] Last Admin: 10/15/16 08:50 Dose: 40 mg Non-Formulary Medication (Cyanocobalamin (Vitamin B-12) [Vitamin B-12]) 1,000 mg PO DAILY [facility] Last Admin: 10/15/16 08:51 Dose: Not Given ALLERGIES simvastatin [From Zocor] Allergy (Mild, Verified 12/17/15 17:18) Rash atorvastatin [From Lipitor] Adverse Reaction (Mild, Verified 12/17/15 17:18) muscle pain rosuvastatin [From Crestor] Adverse Reaction (Mild, Verified 12/17/15 17:18) muscle pain NEW PRESCRIPTIONS: Cozaar 100 mg daily for hypertension SMOKING: Advised to stop smoking DISEASE SPECIFIC EDUCATION: Modification of risk factors for hypertension, dementia, heart disease Smoking Diet changes LAB REVIEW: 10/15/16 05:10 10/15/16 05:10 10/15/16 05:10: WBC 4.59 L, RBC 4.43, Hgb 13.7, Hct 40.5, MCV 91.4, MCH 30.9, MCHC 33.8, RDW Coeff of [place] 11.9, Plt Count 223, Immature Gran % (Auto) 0.4, Neut % (Auto) 36.3, Lymph % (Auto) 46.6, [place] % (Auto) 11.5 H, Eos % (Auto) 3.9 , Baso % (Auto) 1.3, Immature Gran # (Auto) 0.0, Neut # 1.7 L, Lymph # 2.1, [place] # 0.5, Eos # 0.2, Baso # 0.1, Sodium 136, Potassium 4.1, Chloride 103, Carbon Dioxide 28, Anion Gap 9.1, BUN 8, Creatinine 0.81, Estimated GFR (MDRD) 70.00, BUN/Creatinine Ratio 9.87, Glucose 84, Calcium 8.9, Total Bilirubin 0.92 , AST 12 L, ALT 8 L, Alkaline Phosphatase 76, Total Protein 5.9, Albumin 3.3 L, Globulin 2.6, Albumin/Globulin Ratio 1.27 PLAN: Discharge home Diet: Heart Healthy, decrease salt, ice cream and milk products Activity: Gradually resume activity Advised to stop smoking No driving if dizzy Appointment with Dr. Lacy on October 20 at 10:45 am Continue home medications as listed on nursing discharge information sheet. Mrs. Hills is alert and oriented x 3. No complaints are offered. She is ambulatory and independent with all activities of daily living. She does not require an assistive device for ambulation. Meal intakes are good at 75-100%. Her skin is in good condition and is free of rashes, irritation or open areas. Modification of risk factors have been discussed with patient voicing understanding. Héctor Lacy MD
--- NOTE | 2016-10-19 13:41 | PN ---
DATE OF SERVICE: 10/15/16 - DISCHARGE NOTE SUBJECTIVE: 71-year-old white female hospitalized with chest pain, dizziness, near syncopal episode. The patient's workup for cardiac and carotid scan negative. The patient 's neurological status is normal. The patient's main problem is that she has been going through a lot of stress. REVIEW OF SYSTEMS: CONSTITUTIONAL: No night sweats. No fatigue, malaise, lethargy. No fever or chills. HEENT: Eyes: No visual changes. No eye pain. No eye discharge. ENT: No runny nose. No epistaxis. No sinus pain. No sore throat. No odynophagia. No congestion. RESPIRATORY: No cough, no congestion. No hemoptysis. CARDIOVASCULAR: No angina symptoms. No CHF symptoms. No atypical chest pain for CAD. No palpitations. No shortness of breath. GASTROINTESTINAL: No abdominal pain. No nausea or vomiting. No diarrhea or constipation. No hematemesis. No hematochezia. GENITOURINARY: No urgency. No frequency. No dysuria. No hematuria. No obstructive symptoms. No discharge. No pain. No significant abnormal bleeding. MUSCULOSKELETAL: No musculoskeletal pain; no joint swelling. NEUROLOGICAL: No headache. No neck pain. No syncope. No seizures. No dizziness. PSYCHIATRIC: Not anxious. No depression. No suicidal thoughts. No homicidal thoughts. SKIN: No rash. No lesions. No wounds. ENDOCRINE: No unexplained weight loss. No weight gain. HEMATOLOGIC/LYMPHATIC: No anemia. No purpura. No petechiae. No prolonged or excessive bleeding. No palpable lymph nodes. PHYSICAL EXAMINATION: GENERAL: The patient is oriented to time, place and person. VITAL SIGNS: Temperature 97.7, pulse 60, respiratory rate 18, BP 160/86. Pulse ox 98%. HEENT: Head normocephalic, atraumatic. Eyes: Extraocular muscles are intact. Pupils are equal, round and reactive to light and accommodation. Ears: No lesions. Nose appeared normal. Throat: No exudate or erythema. NECK: Supple. No JVD, no carotid bruit. No lymphadenopathy or thyromegaly. LUNGS: Decreased breath sounds. Clear to auscultation. Percussion note normal. Chest symmetrical. HEART: S1, S2, no S3. No murmurs. No cyanosis or clubbing. No ascites. Pulses: Dorsalis pedis and posterior tibial pulses +1 to +2 both sides. ABDOMEN: Soft. Nontender. Bowel sounds active. No CVA tenderness. No mass felt. EXTREMITIES: No edema. Full range of motion of all extremities, equal. NEUROLOGIC: No focal deficit. Cranial nerves II through XII are grossly intact. No headache, no double vision or headache. SKIN: Not dry. Intact. Turgor - normal. LYMPHATIC: No palpable lymph nodes/no lymphedema. MUSCULOSKELETAL: Normal joints with no swelling. Muscle tone is normal. LABS: Hemoglobin 13.7, hematocrit 40, WBC 4,500, normal differential. Creatinine 0.8, BUN 8, potassium 4.1. ASSESSMENT: 1. HYPERTENSION CONTROLLED 2. CHRONIC LUNG DISEASE 3. SMOKING 4. MILD CAROTID OCCLUSIVE DISEASE PLAN: 1. Chest pain etiology likely noncardiac. The patient's cardiac workup is negative. 2. Increase Losartan to 100 daily. 3. DASH diet discussed. The patient's BMI 32, advised to lose 20 to 30 lbs. 4. Counseling for smoking done. 5. Advised to exercise on a regular basis 30 to 60 minutes a day four to five days a week. 6. Advised colonoscopy as recommended. 7. Advised mammogram yearly. 8. Discharge the patient home. CONDITION: Stable. TIME SPENT: More than 30 minutes. Plan and coordination of the patient's care discussed in the presence of nurse. SUSAN
--- NOTE | 2016-10-22 10:52 | DS ---
DATE OF SERVICE: 10/15/16 FINAL DIAGNOSIS: 1. CHEST PAIN 2. LIGHTHEADEDNESS 3. DIZZINESS 4. HYPERTENSION 5. COPD 6. DYSLIPIDEMIA 7. HYPERGLYCEMIA 8. DJD SPINE 9. SCIATICA 10. GERD 11. TOBACCO USE 12. CHOLECYSTECTOMY 13. HYSTERECTOMY VITAL SIGNS AT DISCHARGE: Temperature 97.7, pulse 63, respiratory 18, BP 162/86, pulse ox 98 DISCHARGE INSTRUCTIONS: Followup appointment with Dr. Lacy on 10/20 at 10:45 a.m. MEDICATIONS AT DISCHARGE: Lovastatin (Mevacor) 40 mg p.o. daily Aspirin 81 mg p.o. daily with meal Escitalopram (Lexapro) 20 mg p.o. daily Calcium Carbonate/Vitamin D3 500 mg p.o. daily Cyanocobalamin (Vitamin B12) 1,000 mg p.o. daily Cyclobenzaprine (Flexeril) 10 mg p.o. daily p.r.n. Albuterol (Proventil Hfa) one inh IH b.i.d. p.r.n. Hydrocodone/Acetaminophen ([place] 10-325) one each p.o. q.i.d. NEW PRESCRIPTIONS: Cozaar 100 mg daily for hypertension DIET INSTRUCTIONS: Heart Healthy, decrease salt, ice cream and milk products ACTIVITY: Gradually resume activity. No driving if dizzy. SMOKING: Advised to stop smoking DISEASE SPECIFIC EDUCATION: Modification of risk factors for hypertension Dementia Heart disease Smoking Diet changes HOSPITAL COURSE: 71-year-old white female hospitalized with chest pain, near syncopal episode type of symptoms. The patient's cardiac workup, neurological status remains stable. Carotid scan was negative for hemodynamically significant carotid occlusive disease. The patient's blood pressure was noted to be high. The patient is advised to lose weight 20 to 30 lbs, advised to cut down on salt intake. DASH diet discussed. Advised to quit smoking. Advised to do exercise regularly. Losartan was increased to 100 mg. The patient's condition at time of discharge stable. Telemetry showed sinus rhythm. No ST-T wave changes. No arrhythmias of any significance noted. The patient's stress echo was negative. Dobutamine stress echo was negative for any acute myocardial ischemia or ischemia with exercise. CONDITION AT TIME OF DISCHARGE: Stable. TIME SPENT: More than 60 minutes. [facility]
== END 2016-10-15 10:45 | disposition home or self-care (01) | DRG 313 ==
LOC: MEDSURG B 14:14
PROVIDERS: ADMIT Internal Medicine; ATTEND Internal Medicine
DX: R07.9 Chest pain, unspecified (principal); R42 Dizziness and giddiness; I10 Essential (primary) hypertension; J44.9 Chronic obstructive pulmonary disease, unspecified; I77.89 Other specified disorders of arteries and arterioles; E78.5 Hyperlipidemia, unspecified; R73.9 Hyperglycemia, unspecified; M47.9 Spondylosis, unspecified; M54.30 Sciatica, unspecified side; K21.9 Gastro-esophageal reflux disease without esophagitis; F17.200 Nicotine dependence, unspecified, uncomplicated; Z90.49 Acquired absence of other specified parts of digestive tract; Z73.3 Stress, not elsewhere classified; Z82.49 Family history of ischemic heart disease and other diseases of the circulatory system; Z68.32 Body mass index [BMI] 32.0-32.9, adult; Z72.3 Lack of physical exercise; Z79.899 Other long term (current) drug therapy; Z79.891 Long term (current) use of opiate analgesic
CPT/HCPCS: 36415; 80053; 81001; 82550; 82607; 83874; 84439; 84443; 84484; 85025; 93005; 93010

== ENCOUNTER 2017-01-07 11:58 | Inpatient (IN) | payer OTHER ==
[2017-01-07 12:54] LABS: BASOPHILS % (AUTO) 0.4 % (0.0-3.0); EOSINOPHILS % (AUTO) 0.3 % (0.0-7.0); HEMATOCRIT 38.9 % (37.0-47.0); HEMOGLOBIN 14.3 g/dl (12.0-16.0); IMMATURE GRANULOCYTE % (AUTO) 0.5 % (0.0-5.0); LYMPHOCYTES # (AUTO) 1.9 K/uL (0.60-3.4); LYMPHOCYTES % (AUTO) 16.8 (10.0-50.0); MEAN CORPUSCULAR HEMOGLOBIN 31.5 pg (27.0-31.0); MEAN CORPUSCULAR HGB CONC 36.8 (31.8-35.4); MEAN CORPUSCULAR VOLUME 85.7 fl (81.0-99.0); MONOCYTES % (AUTO) 8.6 (0-10); NEUTROPHILS # (AUTO) 8.2 K/ul (2.0-6.9); NEUTROPHILS % (AUTO) 73.4; PLATELET COUNT 239 10^3/uL (140-440); RED BLOOD COUNT 4.54 10^6/ul (4.20-5.40); WHITE BLOOD COUNT 11.14 K/ul (4.6-10.2)
[2017-01-07 12:59] LABS: BILIRUBIN,URINE 1+ (NEGATIVE); KETONES,URINE Trace (NEGATIVE); LEUKOCYTE ESTERASE ,URINE 2+ (NEGATIVE); NITRITE,URINE Negative (NEGATIVE); PH,URINE 7.5 (5-9); PROTEIN,URINE 2+ (NEGATIVE); URINE, BLOOD 2+ (NEGATIVE)
[2017-01-07 13:04] LABS: ADD URINE MICROSCOPIC YES
[2017-01-07 13:13] LABS: ALBUMIN/GLOBULIN RATIO 1.38; ANION GAP 15.2; BILIRUBIN,TOTAL 1.42 mg/dL (0.00-1.20); BUN/CREATININE RATIO 10.97; CALCIUM 9.2 mg/dL (8.2-10.2); CREATININE 0.82 mg/dL (0.60-1.30); POTASSIUM 4.2 mmol/L (3.5-5.10); TOTAL PROTEIN 6.9 g/dL (5.8-8.1)
[2017-01-07 13:16] LABS: BACTERIA,URINE TRACE (NOT PRESENT)
--- NOTE | 2017-01-07 14:01 | ED.PDOC ---
General ED Provider: Dr. CORBY GARCIA Chief Complaint: Urinary Problem Stated Complaint: dysuria Time Seen by Physician: 12:00 (seen with staff) Mode of Arrival: Walk-In Information Source: Patient Exam Limitations: No limitations Primary Care Provider: SHIRA DIAZ Nursing and Triage Documentation Reviewed and Agree: Yes Complaint Exam - Complaint/Exam Patient Complains of: Reports: Dysuria Onset/Duration: 4 days Symptoms Are: Still present Timing: Intermittent Initial Severity: Moderate Current Severity: Moderate Location of Pain: Reports: Suprapubic Character: Reports: Burning Aggravating: Reports: Urination Alleviating: Reports: None Associated Signs and Symptoms: Reports: Back pain, Dysuria. Denies: Diaphoresis , Fever, Hematuria, Constipation, Blood in stool, Rectal pain, Appetite change, Nausea, Vomiting, Decreased urine output, Increased urine frequency, Increased thirst, Decreased activity, Lethargy, Abdominal Pain, Bubble bath use, Vaginal bleeding, Vaginal discharge, Genital swelling, Genital blisters, Retained foreign body Ectopic Risk Factors: Reports: None Ovarian Torsion Risk Factors: Reports: None Surgical Obstruction Risk Factors: Reports: None RH Status: Unknown Related Surgical History: Reports: None Abdominal Findings: Present: None Differential Diagnoses: UTI Review of Systems - Review Of Systems Constitutional: Reports: No symptoms Eyes: Reports: No symptoms Ears, Nose, Mouth, Throat: Reports: No symptoms Respiratory: Reports: No symptoms Cardiac: Reports: No symptoms GI: Reports: No symptoms : Reports: Dysuria Musculoskeletal: Reports: No symptoms Skin: Reports: No symptoms Neurological: Reports: No symptoms Endocrine: Reports: No symptoms Hematologic/Lymphatic: Reports: No symptoms All Other Systems: Reviewed and Negative Past Medical History - Past Medical History Previously Healthy: No Endocrine: Reports: Dyslipidemia Cardiovascular: Reports: Hypertension Respiratory: Reports: COPD Hematological: Reports: None Gastrointestinal: Reports: None Genitourinary: Reports: None Neuro/Psych: Reports: None Musculoskeletal: Reports: None Cancer: Reports: None Last Menstrual Period: hysterectomy - Surgical History General Surgical History: Reports: None - Family History Family History: Reports: None - Social History Smoking Status: Current every day smoker, Heavy tobacco smoker Hx Substance Use: No Alcohol Screening: None Physical Exam - Physical Exam Appearance: Well-appearing, No pain distress, Well-nourished Eyes: GUIDO, EOMI, Conjunctiva clear ENT: Ears normal, Nose normal, Oropharynx normal Respiratory: Airway patent, Breath sounds clear, Breath sounds equal, Respirations nonlabored Cardiovascular: RRR, Pulses normal, No rub, No murmur GI/: Soft, Nontender, No masses, Bowel sounds normal, No Organomegaly Musculoskeletal: Normal strength, ROM intact, No edema, No calf tenderness Skin: Warm, Dry, Normal color Neurological: Sensation intact, Motor intact, Reflexes intact, Cranial nerves intact, Alert, Oriented Psychiatric: Affect appropriate, Mood appropriate Critical Care Note - Critical Care Note Total Time (mins): 0 Course - Course Hematology/Chemistry: 01/07/17 12:45 01/07/17 12:45 Orders, Labs, Meds: Lab Review 01/07/17 01/07/17 12:15 12:45 WBC 11.14 H RBC 4.54 Hgb 14.3 Hct 38.9 MCV 85.7 MCH 31.5 H MCHC 36.8 H RDW Coeff of [place] 12.1 Plt Count 239 Immature Gran % (Auto) 0.5 Neut % (Auto) 73.4 Lymph % (Auto) 16.8 [place] % (Auto) 8.6 Eos % (Auto) 0.3 Baso % (Auto) 0.4 Immature Gran # (Auto) 0.1 Neut # 8.2 H Lymph # 1.9 [place] # 1.0 Eos # 0.0 Baso # 0.0 Sodium 126 L Potassium 4.2 Chloride 95 L Carbon Dioxide 20 L Anion Gap 15.2 BUN 9 Creatinine 0.82 Estimated GFR (MDRD) 69.00 BUN/Creatinine Ratio 10.97 Glucose 96 Calcium 9.2 Total Bilirubin 1.42 H AST 14 L ALT 9 L Alkaline Phosphatase 100 Total Protein 6.9 Albumin 4.0 Globulin 2.9 Albumin/Globulin Ratio 1.38 Urine Color Yellow Urine Clarity Cloudy Urine pH 7.5 Ur Specific [place] 1.020 Urine Protein 2+ Urine Glucose (UA) Negative Urine Ketones Trace Urine Blood 2+ Urine Nitrite Negative Urine Bilirubin 1+ Urine Urobilinogen 4.0 Ur Leukocyte Esterase 2+ Urine Microscopic RBC Tntc Urine Microscopic WBC Tntc Ur Squamous Epith Cells Not present Urine Bacteria Trace Orders Category Date Time Status BLOOD CULTURE Stat LAB 01/07/17 13:58 Ordered CBC W/ AUTO DIFF Stat LAB 01/07/17 12:45 Completed COMPREHENSIVE METABOLIC PANEL Stat LAB 01/07/17 12:45 Completed LACTIC ACID Stat LAB 01/07/17 13:58 Ordered PROCALCITONIN Stat LAB 01/07/17 Ordered URINALYSIS C & S IF INDICATED Stat LAB 01/07/17 12:15 Completed URINE CULTURE Stat LAB 01/07/17 12:[address] ABD/PEL WO RENAL STONE PROT Stat RADS 01/07/17 13:38 Ordered Vital Signs: Temp Pulse Resp BP Pulse Ox 01/07/17 11:59 98.5 F 82 20 169/101 H 97 Departure - Departure Time of Disposition: 14:01 Disposition: ADMITTED INPATIENT Discharge Problem: Urinary symptoms, Urinary tract infectious disease, Hyponatremia Instructions: Urinary Tract Infection in Women (ED) Condition: Good Pt referred to PMD for follow-up: No Additional Instructions: Please call your Family Physician as soon as possible to schedule a follow-up appointment. Allergies/Adverse Reactions: Allergies simvastatin [From Zocor] Allergy (Mild, Verified 01/07/17 12:07) Rash atorvastatin [From Lipitor] Adverse Reaction (Mild, Verified 01/07/17 12:07) muscle pain rosuvastatin [From Crestor] Adverse Reaction (Mild, Verified 01/07/17 12:07) muscle pain Home Medications: Ambulatory Orders Aspirin [Aspirin Chewable] 1 tab PO DAILYWM 08/30/13 Lovastatin [Mevacor] 40 mg PO DAILY 08/30/13 Calcium Carbonate/Vitamin D3 [Calcium 500 + D Tablet] 500 mg PO DAILY 12/17/15 Escitalopram Oxalate [Lexapro] 20 mg PO DAILY 12/17/15 Albuterol Sulfate [Proventil Hfa] 1 inh IH BID PRN 10/13/16 Cyanocobalamin (Vitamin B-12) [Vitamin B-12] 1,000 mg PO DAILY 10/13/16 Cyclobenzaprine HCl [Flexeril] 10 mg PO DAILY PRN 10/13/16 Hydrocodone/Acetaminophen [[place] 10-325 Tablet] 1 each PO QID 10/13/16 Losartan Potassium [Cozaar] 100 mg PO DAILY #30 tablet 10/15/16 Disposition Discussed With: Patient
[2017-01-07] MEDS ORDERED: PROAIR HFA IH PRN (14:04)
[2017-01-07] MEDS: SODIUM CHLORIDE 1,000 ML IV SCH (14:37)
--- NOTE | 2017-01-07 15:14 | CT ---
Exam: CT exam of the abdomen pelvis without intravenous contrast. Comparison: 12/17/2015. Reason for exam: Pain and pyuria. FINDINGS: No focal consolidation or pleural effusion is seen within the partially imaged lung bases . Similar appearing right hepatic cyst on axial image number 56. Otherwise the hepatic parenchyma is unremarkable. The spleen, adrenal glands, and pancreas appear grossly unremarkable. The gallbladder has been removed. No hydronephrosis, hydroureter, or nephrolithiasis. No perinephric inflammatory changes. No focal small bowel dilatation or transition point. The appendix is not seen. There are no inflamm atory changes in the expected location of the appendix. No intra-abdominal free air or pelvic free fluid. No inflammatory changes are seen within the mesenteric or pelvic fat. The bladder is partially distended with high density material. Multilevel degenerative disease of t he thoracic and lumbar spine. Impression 1. Bladder contents have a relatively higher density than expected for simple urine. Recommend cor relation with urinalysis. 2. No acute inflammatory findings are seen within the abdomen or pelvis. Report faxed at [id number] hours on 01/07/2017.
[2017-01-07] MEDS: NORCO 10-325 PO SCH ×2 (16:24→20:21)
[2017-01-07 16:38] VITALS: BMI 33.3
[2017-01-07] MEDS ORDERED: SODIUM CHLORIDE IV STA (17:25)
[2017-01-07] MEDS ORDERED: FORTAZ IV STA (17:25)
[2017-01-07] MEDS ORDERED: FORTAZ ONE (17:42)
[2017-01-07] MEDS: ROBITUSSIN AC SYRUP ONE ×2 (20:11→20:21)
[2017-01-07] MEDS: ROBITUSSIN DM SYRUP PO SCH (20:23)
[2017-01-07] MEDS: SODIUM CHLORIDE IV SCH (22:31)
[2017-01-07] MEDS: FORTAZ IV SCH (22:31)
--- NOTE | 2017-01-08 00:26 | DI ---
EXAM: Chest two view. HISTORY: Cough, short of breath COMPARISON: 10/13/2016 FINDINGS: Heart size is normal. The lungs are clear without localized pulmonary infiltrate or pneu monia. There is no pleural fluid. There is degenerate spondylosis of the [id number] thoracic spi ne with mild moderate disc space narrowing multiple levels lower thoracic spine IMPRESSION: 1. Heart size normal 2. No acute cardiopulmonary findings. 3. Degenerate spondylosis and degenerate disc disease [id number] thoracic spine
[2017-01-08] MEDS: FORTAZ IV SCH ×3 (05:19→21:05)
[2017-01-08] MEDS: SODIUM CHLORIDE 1,000 ML IV SCH ×2 (05:19→18:48)
[2017-01-08] MEDS: SODIUM CHLORIDE IV SCH ×3 (05:19→21:05)
[2017-01-08 05:31] LABS: BASOPHILS # (AUTO) 0.1 K/uL (0-0.2); BASOPHILS % (AUTO) 0.7 % (0.0-3.0); EOSINOPHILS # (AUTO) 0.2 K/ul (0.0-0.7); EOSINOPHILS % (AUTO) 1.7 % (0.0-7.0); HEMATOCRIT 39.1 % (37.0-47.0); HEMOGLOBIN 14.1 g/dl (12.0-16.0); IMMATURE GRANULOCYTE % (AUTO) 0.5 % (0.0-5.0); LYMPHOCYTES # (AUTO) 1.8 K/uL (0.60-3.4); LYMPHOCYTES % (AUTO) 18.2 (10.0-50.0); MEAN CORPUSCULAR HEMOGLOBIN 31.2 pg (27.0-31.0); MEAN CORPUSCULAR HGB CONC 36.1 (31.8-35.4); MEAN CORPUSCULAR VOLUME 86.5 fl (81.0-99.0); MONOCYTES # (AUTO) 0.9 K/uL (0.4-2.0); MONOCYTES % (AUTO) 9.3 (0-10); NEUTROPHILS # (AUTO) 6.8 K/ul (2.0-6.9); NEUTROPHILS % (AUTO) 69.6; PLATELET COUNT 248 10^3/uL (140-440); RED BLOOD COUNT 4.52 10^6/ul (4.20-5.40); WHITE BLOOD COUNT 9.69 K/ul (4.6-10.2)
[2017-01-08 06:26] LABS: ALBUMIN 3.7 g/dL (3.4-5.0); ALBUMIN/GLOBULIN RATIO 1.23; ANION GAP 12.3; BILIRUBIN,TOTAL 1.65 mg/dL (0.00-1.20); BUN/CREATININE RATIO 11.25; CALCIUM 9.2 mg/dL (8.2-10.2); CREATININE 0.8 mg/dL (0.60-1.30); POTASSIUM 4.3 mmol/L (3.5-5.10); TOTAL PROTEIN 6.7 g/dL (5.8-8.1)
[2017-01-08] MEDS: ROBITUSSIN DM SYRUP PO SCH ×5 (07:12→21:06)
[2017-01-08] MEDS: ASPIRIN CHEWABLE PO SCH (07:54)
[2017-01-08] MEDS: NORCO 10-325 PO SCH ×4 (08:07→21:06)
[2017-01-08] MEDS: MEVACOR PO SCH (08:12)
[2017-01-08] MEDS: COZAAR PO SCH (08:12)
[2017-01-08] MEDS ORDERED: VILAZODONE HYDROCHLORIDE 40 MG PO SCH (09:00)
[2017-01-08] MEDS: VILAZODONE HYDROCHLORIDE 40 MG PO SCH (11:21)
[2017-01-09] MEDS: FORTAZ IV SCH (04:31)
[2017-01-09] MEDS: SODIUM CHLORIDE IV SCH (04:31)
[2017-01-09 05:23] LABS: BASOPHILS % (AUTO) 0.6 % (0.0-3.0); EOSINOPHILS # (AUTO) 0.2 K/ul (0.0-0.7); EOSINOPHILS % (AUTO) 3.4 % (0.0-7.0); HEMATOCRIT 37.9 % (37.0-47.0); HEMOGLOBIN 13.4 g/dl (12.0-16.0); IMMATURE GRANULOCYTE % (AUTO) 0.6 % (0.0-5.0); LYMPHOCYTES # (AUTO) 1.4 K/uL (0.60-3.4); LYMPHOCYTES % (AUTO) 21.7 (10.0-50.0); MEAN CORPUSCULAR HGB CONC 35.4 (31.8-35.4); MEAN CORPUSCULAR VOLUME 87.7 fl (81.0-99.0); MONOCYTES # (AUTO) 0.6 K/uL (0.4-2.0); MONOCYTES % (AUTO) 8.8 (0-10); NEUTROPHILS % (AUTO) 64.9; PLATELET COUNT 210 10^3/uL (140-440); RED BLOOD COUNT 4.32 10^6/ul (4.20-5.40); WHITE BLOOD COUNT 6.23 K/ul (4.6-10.2)
[2017-01-09 05:45] LABS: ALBUMIN 3.5 g/dL (3.4-5.0); ALBUMIN/GLOBULIN RATIO 1.25; ANION GAP 13.3; BILIRUBIN,TOTAL 1.1 mg/dL (0.00-1.20); BUN/CREATININE RATIO 12.65; CALCIUM 8.9 mg/dL (8.2-10.2); CREATININE 0.79 mg/dL (0.60-1.30); POTASSIUM 4.3 mmol/L (3.5-5.10); TOTAL PROTEIN 6.3 g/dL (5.8-8.1)
[2017-01-09] MEDS: SODIUM CHLORIDE 1,000 ML IV SCH (06:48)
[2017-01-09] MEDS: ASPIRIN CHEWABLE PO SCH (08:40)
[2017-01-09] MEDS: VILAZODONE HYDROCHLORIDE 40 MG PO SCH (08:41)
[2017-01-09] MEDS: MEVACOR PO SCH (08:41)
[2017-01-09] MEDS: COZAAR PO SCH (08:41)
[2017-01-09] MEDS: NORCO 10-325 PO SCH ×4 (08:41→20:48)
[2017-01-09] MEDS: ROBITUSSIN DM SYRUP PO SCH ×5 (08:43→20:51)
[2017-01-09] MEDS ORDERED: ROCEPHIN 2 GM in SODIUM CHLORIDE 100 ML IV SCH (10:00)
[2017-01-09] MEDS: CIPRO PO SCH ×2 (11:12→20:48)
[2017-01-10] MEDS: CIPRO PO SCH (05:46)
[2017-01-10] MEDS: ASPIRIN CHEWABLE PO SCH (08:41)
[2017-01-10] MEDS: ROBITUSSIN DM SYRUP PO SCH ×2 (08:42→13:16)
[2017-01-10] MEDS: NORCO 10-325 PO SCH ×2 (08:42→12:56)
[2017-01-10] MEDS: COZAAR PO SCH (08:42)
[2017-01-10] MEDS: MEVACOR PO SCH (08:42)
[2017-01-10] MEDS: VILAZODONE HYDROCHLORIDE 40 MG PO SCH (08:43)
--- NOTE | 2017-01-10 09:36 | HP ---
CHIEF COMPLAINT: Weakness, low grade temperature, dysuria and sensation of being cold. SOURCE OF HISTORY: Patient and records at the emergency room. HISTORY OF PRESENT ILLNESS: The patient about four days prior to presentation to the emergency room felt chilly, last Tuesday. She did not develop any dysuria until the next day with low grade fever. She had weakness and continued to have the chilly sensation without shaking chills. She claimed that she just doesn't feel good and felt weak. She was seen at the emergency room and had the following workup. CBC showing slightly elevated leukocyte 11,140, elevated MCH and MCHC, slighted elevated neutrophil 8.2 and chemistries showed hyponatremia as well as hypochloremia with normal potassium at 4.2. CO2 is 20, BUN 9, creatinine 0.82, EGF 69. The rest of the chemistries were unremarkable and the procalcitonin is normal 0.05. Urinalysis showed 2+ protein, 2+ blood, 2+ leukocyte esterase, too numerous to count red cells, too numerous to count white cells, squamous epithelial cells negative and bacteria trace. Chest x-ray showed now no acute cardio pulmonary disease, CAT scan of the abdominal and pelvis bladder contents have a relatively higher density then expected for simple urine, no acute inflammatory process noted in the abdomen and pelvis. I was contacted to the emergency room physician for admission of this patient. I agree for her admission to the hospital. PAST PERSONAL HISTORY: Back pain and is managed by pain management Hypertension Previous hysterectomy Cholecystectomy Appendectomy Bilateral cataract surgery FAMILY HISTORY: Mother at age 54 but the patient could not remember the cause of There is history of diabetes on the paternal side. SOCIAL HISTORY: The patient is and has significant medical illness and [facility] She smokes moderately to heavy is still smoking. Denies any alcoholic use or any drug use other then prescribed. MEDICATIONS: Mevacor 40mg daily Aspirin 81mg tablet daily Vitamin B-12 1,000mcg sublingually Flexeril 10mg tablet daily Proventil Hfa one inhalation twice a day Hydrocodone/Acetaminophen 10-325 one four times a day Losartan 100mg PO daily Viibryd 40mg every morning ALLERGIES: Statin; Simvastatin, Lipitor and Crestor REVIEW OF SYSTEMS: CONSTITUTIONAL: The patient doesn't feel well and she feels chilly but without any shaking chills and has some fatigue. DNA ANALYST: No headaches and no history of seizure problems. VISUAL: Denies any blurred vision, double vision or transient loss of vision AUDITORY: The patient's hearing is decreased. She denies any tinnitus, pain or drainage. RESPIRATORY: Denies any significant cough. No hemoptysis. CARDIOVASCULAR: The patient denies any chest pain or chest oppression. GASTROINTESTINAL: The patient's appetite has decreased. GENITOURINARY: The patient has low grade temperature with dysuria since the day before admission to the emergency room and subsequent admission to the hospital. MUSCULOSKELETAL: The patient has experienced weakness increasing. ENDOCRINE: Negative INTEGUMENT: No rash or pleuritis and no skin bruises. HEMATOLOGIC: No history of prolonged bleed PSYCHIATRIC: Affect is normal. PHYSICAL EXAMINATION: GENERAL: We have a 71 year old female admitted to the hospital because of fever, dysuria and fatigue with chilly sensations. VITAL SIGNS: Temperature 98.5, pulse 82, blood pressure 169/101, respiratory rate 20, oxygen saturation 97% at room air. She is 5'9 and 225 pounds but then she was listed at 237 pounds in the emergency room. HEAD: Unremarkable. FACE: Symmetrical and equal with no facial weakness and no discoloration such as pallor or redness. EYES: Pupils equal/reactive to light. About 3mm in size. Conjunctivae not pale. Sclerae not icteric. MOUTH: Unremarkable THROAT: No inflammation, tumors or exudate. NECK: No masses. No bruit. No tenderness. No rigidity. CHEST: Symmetrical and equal with good expansion and no tenderness. Breast not examined. LUNGS: Breaths sounds are heard in both sides. No rales or wheezing. HEART: Audible and regular with good tones. No murmurs. Slightly distant ABDOMEN: Soft with no remarkable tenderness. No guarding. Bowel sounds are active. No masses palpable. EXTERNAL GENITALIA: Not examined RECTAL: Not done. LOWER EXTREMITIES: Symmetrical and equal with some edema. Interior tibials are present. UPPER EXTREMITIES: Symmetrical and equal. ASSESSMENT: 1. Urinary tract infection 2. History of depression 3. History of hypertension 4. History of chronic lung disease 5. History of dyslipidemia 6. Elevated BMI, 33.3 MTDD
[2017-01-10 10:36] VITALS: BP 167/95; TEMP 97.8
[2017-01-10 10:36] LABS: BILIRUBIN,URINE Negative (NEGATIVE); KETONES,URINE Negative (NEGATIVE); LEUKOCYTE ESTERASE ,URINE Negative (NEGATIVE); NITRITE,URINE Negative (NEGATIVE); PROTEIN,URINE Negative (NEGATIVE); URINE, BLOOD Negative (NEGATIVE)
[2017-01-10 10:37] LABS: ADD URINE MICROSCOPIC NO
[2017-01-10] MEDS ORDERED: ZESTRIL PO SCH (12:30)
[2017-01-10] MEDS ORDERED: PNEUMOVAX 23 IM ONE (14:14)
--- NOTE | 2017-01-10 14:15 | PN ---
DATE OF VISIT: 01/09/17 SUBJECTIVE: The patient is alert and oriented time four not dyspneic or tachypneic. The patient had been afebrile since admission. VITAL SIGNS: Temperature 98.6, pulse 86, blood pressure 151/78, respiratory rate 18 and oxygen saturation 93% at room air. This patient has some chronic obstructive pulmonary disease. The patient is till smoking and more or less a heavy tobacco use. Abnormal urinalysis showed e- coli and sensitive to a host of medication. This patient had been receiving Ceftazidime and this is discontinued today and replaced with Rocephin. M.I.C with Rocephin is 1. LUNGS: Clear to auscultation HEART: Normal sinus rhythm ABDOMEN: Nontender We will obtain a urinalysis tomorrow and see how she is. Her appetite seems to be improving. MTDD
--- NOTE | 2017-01-13 09:43 | DS ---
DATE OF ADMISSION: 01/07/17 DATE OF DISCHARGE: 01/10/17 PATIENT IDENTIFICATION: The patient is an 71 year old female was admitted to the hospital by the emergency room. The patient claimed to have chilly sensation some two to three days prior to presentation to the emergency room. The patient developed some dysuria, , 1-2 days prior to presentation to the emergency room with low grade temperature and weakness and not feeling well. The patient's urinalysis was abnormal and the emergency room physician felt that the patient needed to be in the hospital. CAT scan of the abdomen showed some abnormality in the bladder content. It was described as a higher density then expected for a urine. The patient was alert and oriented. She had no tenderness in the CVA to percussion. NECK: Has no masses and no bruit LUNGS: Breath sounds are heard in both sides. No rales or wheezing. HEART: Audible and regular with good tones and no murmurs. ABDOMEN: Soft with no significant tenderness. Bowels sounds were active. HOSPITAL COURSE: Blood cultures were obtained and were negative for up to three days. The urine however showed Escherichia coli and sensitive to all the medications tested. This patient was given Ceftriaxone 1gram Q 8 hours intervenously and this was discontinued and changed to Cipro 500mg twice a day. CBC the day before discharged showed normal WBC and Chemistry was normal. Repeat urinalysis on the day of discharge showed a normal urinalysis; there is no more blood and no white cells. The patient was also feeling better. LUNGS: Clear to auscultation at the time of discharge. HEART: Normal Sinus rhythm ABDOMEN: Non-tender This patient will be placed on Cipro 500mg for the next five days. She also was instructed to see Dr. Lacy her family physician a week from today or before if there any concerns. If she is not able to get a hold of Dr. Lacy in his office then she should go to the emergency room if she has any recurrence of the problem. FINAL DIAGNOSES: 1. Urinary tract infection, e-coli 2. History of chronic lumbar pain 3. History of COPD 4. Chronic tobacco use and abuse persistent 5. History of hypertension 6. History of Depression 7. History of Dyslipidemia 8. Elevated BMI 33.2. MTDD
== END 2017-01-10 15:13 | disposition home or self-care (01) | DRG 690 ==
LOC: ED 11:58 → MEDSURG B 14:24
PROVIDERS: ADMIT General Practice; ATTEND General Practice
DX: N39.0 Urinary tract infection, site not specified (principal); E87.1 Hypo-osmolality and hyponatremia; B96.20 Unspecified Escherichia coli [E. coli] as the cause of diseases classified elsewhere; R93.41 Abnormal radiologic findings on diagnostic imaging of renal pelvis, ureter, or bladder; I10 Essential (primary) hypertension; J44.9 Chronic obstructive pulmonary disease, unspecified; G89.29 Other chronic pain; M54.5 Low back pain; F32.9 Major depressive disorder, single episode, unspecified; E78.5 Hyperlipidemia, unspecified; R63.8 Other symptoms and signs concerning food and fluid intake; Z68.33 Body mass index [BMI] 33.0-33.9, adult; F17.200 Nicotine dependence, unspecified, uncomplicated; Z79.899 Other long term (current) drug therapy
CPT/HCPCS: 36415; 74176; 80053; 81001; 83605; 84145; 85025; 87040; 87086; 87186; 96360; 97802; 99284

== ENCOUNTER 2017-01-17 12:30 | Outpatient (RCR) | END 2017-01-21 | LOC: NEWBEG 12:30 | PROVIDERS: ATTEND Psychiatry & Neurology Psychiatry | DX: F32.1 Major depressive disorder, single episode, moderate (principal) | CPT/HCPCS: 90792; 90853 ==

== ENCOUNTER 2017-02-16 14:00 | Outpatient (RCR) | END 2017-02-21 | LOC: NEWBEG 14:00 | PROVIDERS: ATTEND Psychiatry & Neurology Psychiatry | DX: F32.1 Major depressive disorder, single episode, moderate (principal) | CPT/HCPCS: 90832; 90834; 90837; 99214 ==

== ENCOUNTER 2017-03-22 13:30 | Outpatient (RCR) | END 2017-03-24 | LOC: NEWBEG 13:30 | PROVIDERS: ATTEND Psychiatry & Neurology Psychiatry | DX: F32.1 Major depressive disorder, single episode, moderate (principal) | CPT/HCPCS: 90834; 90837; 99213; 99214 ==

== ENCOUNTER 2017-03-25 09:20 | Outpatient (RCR) | END 2017-04-23 | LOC: NEWBEG 09:20 | PROVIDERS: ATTEND Psychiatry & Neurology Psychiatry | DX: F32.1 Major depressive disorder, single episode, moderate (principal) ==

== ENCOUNTER 2017-06-21 13:00 | Outpatient (RCR) | END 2017-06-23 | LOC: NEWBEG 13:00 | PROVIDERS: ATTEND Psychiatry & Neurology Psychiatry | DX: F32.1 Major depressive disorder, single episode, moderate (principal) | CPT/HCPCS: 90834; 90837; 99214 ==

== ENCOUNTER 2017-07-22 10:30 | Outpatient (RCR) | END 2017-07-24 | LOC: NEWBEG 10:30 | PROVIDERS: ATTEND Psychiatry & Neurology Psychiatry | DX: F32.1 Major depressive disorder, single episode, moderate (principal) | CPT/HCPCS: 90832; 99214 ==

== ENCOUNTER 2017-08-23 13:00 | Outpatient (RCR) | END 2017-08-24 | LOC: NEWBEG 13:00 | PROVIDERS: ATTEND Psychiatry & Neurology Psychiatry | DX: F32.1 Major depressive disorder, single episode, moderate (principal) | CPT/HCPCS: 90837 ==

== ENCOUNTER 2017-08-30 13:40 | Outpatient (RCR) | payer OTHER | END 2017-09-21 | LOC: NEWBEG 13:40 | PROVIDERS: ATTEND Psychiatry & Neurology Psychiatry | DX: F32.1 Major depressive disorder, single episode, moderate (principal) | CPT/HCPCS: 90834; 90837; 99213 ==

== ENCOUNTER 2017-09-27 13:00 | Outpatient (RCR) | END 2017-10-22 | LOC: NEWBEG 13:00 | PROVIDERS: ATTEND Psychiatry & Neurology Psychiatry | DX: F32.1 Major depressive disorder, single episode, moderate (principal) | CPT/HCPCS: 90837; 99213 ==

== ENCOUNTER 2017-10-26 15:18 | Outpatient (POV) | END 2017-10-26 17:00 | LOC: OUTPT 15:18 | PROVIDERS: ATTEND Otolaryngology | DX: H91.90 Unspecified hearing loss, unspecified ear (principal) | CPT/HCPCS: 92557 ==

== ENCOUNTER 2017-11-08 13:30 | Outpatient (RCR) | END 2017-11-21 23:59 | LOC: NEWBEG 13:30 | PROVIDERS: ATTEND Psychiatry & Neurology Psychiatry | DX: F32.1 Major depressive disorder, single episode, moderate (principal) | CPT/HCPCS: 90837; 90853; 99214 ==

== ENCOUNTER 2017-12-20 13:30 | Outpatient (RCR) | END 2017-12-22 23:59 | LOC: NEWBEG 13:30 | PROVIDERS: ATTEND Psychiatry & Neurology Psychiatry | DX: F32.1 Major depressive disorder, single episode, moderate (principal) | CPT/HCPCS: 90834; 99213 ==

== ENCOUNTER 2018-01-03 01:00 | Outpatient (RCR) | END 2018-01-21 23:59 | LOC: NEWBEG 01:00 | PROVIDERS: ATTEND Psychiatry & Neurology Psychiatry | DX: F32.1 Major depressive disorder, single episode, moderate (principal); F41.9 Anxiety disorder, unspecified | CPT/HCPCS: 90834; 90837; 99214 ==

== ENCOUNTER 2018-01-06 13:19 | Emergency (ER) | payer OTHER ==
[2018-01-06 13:28] VITALS: BP 156/92; TEMP 97.8; BMI 35.2
[2018-01-06] MEDS: DUONEB NEB STA (14:08)
--- NOTE | 2018-01-06 14:17 | DI ---
EXAM: Two views of the chest. History: Short of breath Comparison: Chest radiograph 01/07/2017 Findings: Heart size is within normal limits. No focal consolidation. No appreciable pleural fluid and no pneumothorax. No acute osseous abnormalities. Degenerative changes of the thoracic spine. Impression: No acute cardiopulmonary process
[2018-01-06] MEDS: SOLU-MEDROL 125 MG IM STA (14:23)
--- NOTE | 2018-01-06 14:58 | ED.PDOC ---
General ED Provider: Dr. JENELLE BOWLES MD Chief Complaint: Shortness of Air Stated Complaint: sob Time Seen by Physician: 13:40 Mode of Arrival: Walk-In Information Source: Patient Primary Care Provider: SHIRA DIAZ Nursing and Triage Documentation Reviewed and Agree: Yes Reviewed sepsis parameters & appropriate labs ordered?: No System Inflammatory Response Syndrome: Not Applicable Sepsis Protocol: For patient's 13 years and over: Temp is 96.8 and below OR 101 and greater Pulse >90 BPM Resp >20/minute Acutely Altered Mental Status Are patient's symptoms suggestive of a new infection, such as: -Pneumonia -Skin, Soft Tissue -Endocarditis -UTI -Bone, Joint Infection -Implantable Device -Acute Abdominal Infection -Wound Infection -Meningitis -Blood Stream Catheter Infection -Unknown Review of Systems - Review Of Systems Constitutional: Reports: Other (sob) Eyes: Reports: No symptoms Ears, Nose, Mouth, Throat: Reports: No symptoms Respiratory: Reports: No symptoms Cardiac: Reports: No symptoms GI: Reports: No symptoms : Reports: No symptoms Musculoskeletal: Reports: No symptoms Skin: Reports: No symptoms Neurological: Reports: No symptoms Endocrine: Reports: No symptoms Hematologic/Lymphatic: Reports: No symptoms All Other Systems: Reviewed and Negative Past Medical History - Past Medical History Previously Healthy: No Endocrine: Reports: Dyslipidemia Cardiovascular: Reports: Hypertension Respiratory: Reports: COPD Hematological: Reports: None Gastrointestinal: Reports: None Genitourinary: Reports: None Neuro/Psych: Reports: None Musculoskeletal: Reports: None Cancer: Reports: None Last Menstrual Period: hysterectomy - Surgical History General Surgical History: Reports: None - Family History Family History: Reports: None - Social History Smoking Status: Current every day smoker, Heavy tobacco smoker Hx Substance Use: No Alcohol Screening: None Physical Exam - Physical Exam Appearance: Well-appearing, Obese Ill-appearing: Mild Eyes: GUIDO, EOMI, Conjunctiva clear ENT: Ears normal, Nose normal, Oropharynx normal Respiratory: Wheezes Cardiovascular: RRR, Pulses normal, No rub, No murmur GI/: Soft, Nontender, No masses, Bowel sounds normal, No Organomegaly Musculoskeletal: Normal strength, ROM intact, No edema, No calf tenderness Skin: Warm, Dry, Normal color Neurological: Sensation intact, Motor intact, Reflexes intact, Cranial nerves intact, Alert, Oriented Psychiatric: Affect appropriate, Mood appropriate Critical Care Note - Critical Care Note Total Time (mins): 0 Course - Course Hematology/Chemistry: 01/06/18 13:55 Orders, Labs, Meds: Lab Review 01/06/18 13:55 WBC 7.83 RBC 4.36 Hgb 13.9 Hct 38.7 MCV 88.8 MCH 31.9 H MCHC 35.9 H RDW Coeff of [place] 12.0 Plt Count 251 Immature Gran % (Auto) 0.4 Neut % (Auto) 62.0 Lymph % (Auto) 27.1 [place] % (Auto) 8.2 Eos % (Auto) 1.5 Baso % (Auto) 0.8 Immature Gran # (Auto) 0.0 Neut # (Auto) 4.9 Lymph # (Auto) 2.1 Sunflower # (Auto) 0.6 Eos # (Auto) 0.1 Baso # (Auto) 0.1 Orders Category Date Time Status NEBULIZER TREATMENT Stat CARDIO 01/06/18 13:47 Completed CBC W/ AUTO DIFF Stat LAB 01/06/18 13:55 Completed Ipratropium/Albuterol Neb [Duoneb] MEDS 01/06/18 13:47 Discontinued 1 vial NEB ONCE STA Methylprednisolone Sod Succ/Pf [Solu-Medrol 125 mg] MEDS 01/06/18 13:48 Discontinued 125 mg IM ONCE STA CXR [CHEST, 2 VIEWS PA & LAT] Stat RADS 01/06/18 13:46 Completed Medications Discontinued Medications Generic Name Dose Route Start Last Admin Trade Name Freq PRN Reason Stop Dose Admin Albuterol/Ipratropium 1 vial 01/06/18 13:47 01/06/18 14:08 Duoneb NEB 01/06/18 13:48 1 vial ONCE STA Administration Methylprednisolone Sodium Succinate 125 mg 01/06/18 13:48 01/06/18 14:23 Solu-Medrol 125 Mg IM 01/06/18 13:49 125 mg ONCE STA Administration Vital Signs: Temp Pulse Resp BP Pulse Ox 01/06/18 13:21 97.8 F 103 H 20 156/92 H 96 Departure - Departure Time of Disposition: 14:55 Disposition: HOME SELF-CARE Discharge Problem: COPD (chronic obstructive pulmonary disease), SOB (shortness of breath) Instructions: Shortness of Breath (ED) Condition: Good Pt referred to PMD for follow-up: Yes IPMP verified?: No Additional Instructions: Take prednisone as prescribed. Follow up with your doctor. Prescriptions: Prednisone 10 mg PO DAILY 5 Days #5 tab.ds.pk Allergies/Adverse Reactions: Allergies simvastatin [From Zocor] Allergy (Mild, Verified 01/06/18 13:28) Rash atorvastatin [From Lipitor] Adverse Reaction (Mild, Verified 01/06/18 13:28) muscle pain rosuvastatin [From Crestor] Adverse Reaction (Mild, Verified 01/06/18 13:28) muscle pain Home Medications: Ambulatory Orders Aspirin [Aspirin Chewable] 2 tab PO DAILYWM 08/30/13 Lovastatin [Mevacor] 40 mg PO DAILY 08/30/13 Albuterol Sulfate [Proventil Hfa] 1 inh IH BID PRN 10/13/16 Losartan Potassium [Cozaar] 100 mg PO DAILY #30 tablet 10/15/16 Lorazepam [Ativan] 0.5 mg PO TID PRN 10/26/17 Mirtazapine [Remeron] 30 mg PO BID BREAKFAST\T\LUNCH 10/26/17 Cholecalciferol (Vitamin D3) [Vitamin D3] 1,000 unit PO DAILY 01/06/18 [place]-3 Fatty Acids/Fish Oil [Fish Oil 1,000 mg Capsule] 1 each PO DAILY Prednisone 10 mg PO DAILY 5 Days #5 tab.ds.pk 01/06/18
== END 2018-01-06 15:02 | disposition home or self-care (01) ==
LOC: ED 13:19
DX: J44.9 Chronic obstructive pulmonary disease, unspecified (principal); R06.02 Shortness of breath; F17.210 Nicotine dependence, cigarettes, uncomplicated; I10 Essential (primary) hypertension; Z79.899 Other long term (current) drug therapy
CPT/HCPCS: 36415; 85025; 94640; 96372; 99283

== ENCOUNTER 2018-01-08 11:31 | Inpatient (IN) | payer OTHER ==
[2018-01-08] MEDS ORDERED: SOLU-MEDROL 125 MG IVP STA (12:09)
[2018-01-08] MEDS ORDERED: DUONEB NEB STA (12:09)
--- NOTE | 2018-01-08 13:04 | ED.PDOC ---
General ED Provider: Dr. CORBY GARCIA Chief Complaint: Shortness of Air Stated Complaint: FALL/RIGHT HIP PAIN Time Seen by Physician: 11:32 (FALL 9 AM HAS RIGHT HIP PAIN) Mode of Arrival: Walk-In Information Source: Patient, Other (PT DNIED SYNCOPE ) Exam Limitations: Clinical condition Primary Care Provider: SHIRA DIAZ Nursing and Triage Documentation Reviewed and Agree: Yes Reviewed sepsis parameters & appropriate labs ordered?: No (FAMILY DECLINED ABG.) System Inflammatory Response Syndrome: Not Applicable Sepsis Protocol: For patient's 13 years and over: Temp is 96.8 and below OR 101 and greater Pulse >90 BPM Resp >20/minute Acutely Altered Mental Status Are patient's symptoms suggestive of a new infection, such as: -Pneumonia -Skin, Soft Tissue -Endocarditis -UTI -Bone, Joint Infection -Implantable Device -Acute Abdominal Infection -Wound Infection -Meningitis -Blood Stream Catheter Infection -Unknown Trauma/Injury Complaint Exam - Trauma Complaint/Exam Location of Pain or Injury: Reports: RLE (HIP) Mechanism of Injury: Reports: Fall Onset/Duration: 0NSET ABOUT 9 AM ARRIVED ABOUT 11:30 Symptoms Are: Still present Timing of Treatment: Immediate Initial Severity: Moderate Current Severity: Moderate Character: Denies: Dull, Aching, Pressure, Burning, Sharp, Stabbing Aggravating: Reports: Movement Alleviating: Reports: Rest Associated Signs and Symptoms: Reports: Bleeding (ABRASION UPPER EXT RIGHT AND LEFT). Denies: LOC, Confusion, Memory loss, Lethargy, Vomiting, Bruising, Swelling, Extremity disuse, Painful respiration, Hoarseness, Dysphagia, Hemoptysis, Significant blood loss Penetrating Injury Risk Factors: Reports: None Related Surgical History: Reports: None Nexus Low Risk Criteria: No evidence of intoxicat., No Altered LOC, No focal neuro deficit, No distracting injuries Glascow Coma Scale (see protocol): 15 Trauma Findings: Present: Neck tenderness, Decreased breath sounds, Pelvic tenderness (RIGHT SIDED ). Absent: [place] eyes, Hemotympanum, Nasal deformity, Dental tenderness, Dental injury, Dental malocclusion, Neck spasm, SubQ Air, Crepitus, Airway obstructed, Trachea displaced, Labored respirations, Muffled heart sounds, Weak pulses, Absent pulses, Abdominal distention, Pelvic instability, Perineal blood, Back malalignment, Limited ROM, Agitated, Uncooperative Skin Findings: Present: Tenderness, Laceration (RIGHT FOREARM) Differential Diagnoses: Fracture, Laceration, Sprain, Strain Review of Systems - Review Of Systems Constitutional: Reports: No symptoms Eyes: Reports: No symptoms Ears, Nose, Mouth, Throat: Reports: No symptoms Respiratory: Reports: No symptoms Cardiac: Reports: No symptoms GI: Reports: No symptoms : Reports: No symptoms Musculoskeletal: Reports: Back pain, Neck pain (HIP PAIN RIGHT), Other Skin: Reports: No symptoms Neurological: Reports: No symptoms Endocrine: Reports: No symptoms Hematologic/Lymphatic: Reports: No symptoms All Other Systems: Reviewed and Negative Past Medical History - Past Medical History Previously Healthy: No Endocrine: Reports: Dyslipidemia Cardiovascular: Reports: Hypertension Respiratory: Reports: COPD Hematological: Reports: None Gastrointestinal: Reports: None Genitourinary: Reports: None Neuro/Psych: Reports: None Musculoskeletal: Reports: None Cancer: Reports: None Last Menstrual Period: none - Surgical History General Surgical History: Reports: None - Family History Family History: Reports: None - Social History Smoking Status: Current every day smoker, Heavy tobacco smoker Hx Substance Use: No Alcohol Screening: None Physical Exam - Physical Exam Appearance: Ill-appearing, Cachectic Ill-appearing: Mild Pain Distress: Mild Eyes: GUIDO, EOMI, Conjunctiva clear ENT: Dry mucosa Respiratory: Airway patent, Breath sounds clear, Breath sounds equal, Respirations nonlabored Cardiovascular: RRR, Pulses normal, No rub, No murmur GI/: Soft, Nontender, No masses, Bowel sounds normal, No Organomegaly Musculoskeletal: Limited ROM (RIGHT LEG), Limited strength Skin: Warm, Dry, Normal color Neurological: Sensation intact, Motor intact, Reflexes intact, Cranial nerves intact, Alert, Oriented Psychiatric: Affect appropriate, Mood appropriate Interpretation - Radiology Interpretation Radiology Interpretation By: Radiologist Radiology Results: Positive (RIGHT HIP FX) Procedures - IV/Art Line Insertion Location: LEFT SIDE Type of Line: External Jugular Invasive Line/IV Catheter Gauge: 20 Number of Attempts: 1 (PROCEDURE DONE WITH EXTENSIVE CLEANING AND STERILE GLOVES ) Blood Return Positive: Yes Invasive Line/IV Flushes Without Difficulty: Yes (PRESENT VICENTA BELTRAN RN AND PRIYANKA, AND FAMILY MEMBER FOR REASSURANCE OF T) Critical Care Note - Critical Care Note Total Time (mins): 0 Course - Course Hematology/Chemistry: 01/08/18 12:20 01/08/18 12:20 Orders, Labs, Meds: Lab Review 01/08/18 01/08/18 01/08/18 12:20 12:20 12:20 WBC 11.23 H RBC 4.40 Hgb 13.9 Hct 38.7 MCV 88.0 MCH 31.6 H MCHC 35.9 H RDW Coeff of [place] 11.9 Plt Count 292 Immature Gran % (Auto) 0.9 Neut % (Auto) 61.2 Lymph % (Auto) 28.8 [place] % (Auto) 8.4 Eos % (Auto) 0.3 Baso % (Auto) 0.4 Immature Gran # (Auto) 0.1 Neut # (Auto) 6.9 Lymph # (Auto) 3.2 [place] # (Auto) 0.9 Eos # (Auto) 0.0 Baso # (Auto) 0.0 Puncture Site O2 Saturation ABG pH ABG pCO2 ABG pO2 ABG HCO3 ABG Total CO2 ABG Base Excess Nemesio Test FiO2 % Sodium 128 L Potassium 3.7 Chloride 93 L Carbon Dioxide 24 Anion Gap 14.7 BUN 10 Creatinine 0.76 Estimated GFR (MDRD) 75.00 BUN/Creatinine Ratio 13.15 Glucose 101 Lactic Acid 17.3 Calcium 9.6 Total Bilirubin 1.1 AST 16 ALT 17 Alkaline Phosphatase 98 Total Creatine Kinase 104 Troponin I < 0.0100 Total Protein 7.6 Albumin 4.0 Globulin 3.6 Albumin/Globulin Ratio 1.11 01/08/18 12:25 WBC RBC Hgb Hct MCV MCH MCHC RDW Coeff of [place] Plt Count Immature Gran % (Auto) Neut % (Auto) Lymph % (Auto) [place] % (Auto) Eos % (Auto) Baso % (Auto) Immature Gran # (Auto) Neut # (Auto) Lymph # (Auto) [place] # (Auto) Eos # (Auto) Baso # (Auto) Puncture Site R brach O2 Saturation 97.0 ABG pH 7.49 H ABG pCO2 30.7 L ABG pO2 80.0 L ABG HCO3 23.3 ABG Total CO2 24 ABG Base Excess 0 Nemesio Test + FiO2 % 21.0 Sodium Potassium Chloride Carbon Dioxide Anion Gap BUN Creatinine Estimated GFR (MDRD) BUN/Creatinine Ratio Glucose Lactic Acid Calcium Total Bilirubin AST ALT Alkaline Phosphatase Total Creatine Kinase Troponin I Total Protein Albumin Globulin Albumin/Globulin Ratio Orders Category Date Time Status ABG DRAW REQUEST Stat CARDIO 01/08/18 12:09 Completed EKG-(ED ONLY) Stat CARDIO 01/08/18 12:10 Completed NEBULIZER TREATMENT Stat CARDIO 01/08/18 12:09 Completed ED IV/MEDIPORT/POWERPORT .ONCE EMERGENCY 01/08/18 12:10 Active ABG Stat LAB 01/08/18 12:25 Completed BLOOD CULTURE (ED ONLY) Stat LAB 01/08/18 12:20 Received CBC W/ AUTO DIFF Stat LAB 01/08/18 12:20 Completed COMPREHENSIVE METABOLIC PANEL Stat LAB 01/08/18 12:20 Completed CREATINE KINASE Stat LAB 01/08/18 12:20 Completed LACTIC ACID Stat LAB 01/08/18 12:20 Completed TROPONIN I Stat LAB 01/08/18 12:20 Completed 0.9 % Sodium Chloride [Saline Flush] MEDS 01/08/18 12:10 Ordered 1 syr IVF PRN PRN Ipratropium/Albuterol Neb [Duoneb] MEDS 01/08/18 12:09 Discontinued 1 vial NEB ONCE STA Methylprednisolone Sod Succ/Pf [Solu-Medrol 125 mg] MEDS 01/08/18 12:09 Discontinued 125 [address] IVP ONCE STA CT CHEST W/O CONTRAST Stat RADS 01/08/18 12:08 Taken Medications Generic Name Dose Route Start Last Admin Trade Name Freq PRN Reason Stop Dose Admin Sodium Chloride 1 syr 01/08/18 12:10 Saline Flush IVF PRN PRN To flush IV Discontinued Medications Generic Name Dose Route Start Last Admin Trade Name Freq PRN Reason Stop Dose Admin Albuterol/Ipratropium 1 vial 01/08/18 12:09 01/08/18 12:30 Duoneb NEB 01/08/18 12:10 1 vial ONCE STA Administration Methylprednisolone Sodium Succinate 125 mg 01/08/18 12:09 01/08/18 12:47 Solu-Medrol 125 Mg IVP 01/08/18 12:10 125 mg ONCE STA Administration Vital Signs: Temp Pulse Resp BP Pulse Ox 01/08/18 11:31 97.2 F L 82 20 167/98 H 95 Departure - Departure Discharge Problem: Closed right hip fracture Qualifiers: Encounter type: initial encounter Qualified Code(s): S72.001A - Fracture of unspecified part of neck of right femur, initial encounter for closed fracture Instructions: Hip Fracture (ED) Condition: Good Pt referred to PMD for follow-up: Yes IPMP verified?: No Additional Instructions: Please call your Family Physician as soon as possible to schedule a follow-up appointment. Allergies/Adverse Reactions: Allergies simvastatin [From Zocor] Allergy (Mild, Verified 01/08/18 11:38) Rash atorvastatin [From Lipitor] Adverse Reaction (Mild, Verified 01/08/18 11:38) muscle pain rosuvastatin [From Crestor] Adverse Reaction (Mild, Verified 01/08/18 11:38) muscle pain Home Medications: Ambulatory Orders Aspirin [Aspirin Chewable] 2 tab PO DAILYWM 08/30/13 Lovastatin [Mevacor] 40 mg PO DAILY 08/30/13 Albuterol Sulfate [Proventil Hfa] 1 inh IH BID PRN 10/13/16 Losartan Potassium [Cozaar] 100 mg PO DAILY #30 tablet 10/15/16 Lorazepam [Ativan] 0.5 mg PO TID PRN 10/26/17 Mirtazapine [Remeron] 30 mg PO BID BREAKFAST\T\LUNCH 10/26/17 Cholecalciferol (Vitamin D3) [Vitamin D3] 1,000 unit PO DAILY 01/06/18 [place]-3 Fatty Acids/Fish Oil [Fish Oil 1,000 mg Capsule] 1 each PO DAILY Prednisone 10 mg PO DAILY 5 Days #5 tab.ds.pk 01/06/18 Disposition Discussed With: Patient, Family
--- NOTE | 2018-01-08 13:16 | CT ---
EXAM: CT chest without contrast TECHNIQUE: Helical axial CT of the chest was performed without contrast with coronal and sagittal rec onstructions. COMPARISON: Chest x-ray from 01/06/2018 HISTORY: Short of breath FINDINGS: Lung parenchyma: There is no mass or nodule or large effusion or infiltrate. Mediastinum: No pathologic hilar or mediastinal adenopathy. No significant coronary calcifications. T here is no pericardial effusion. There is modest aortic calcification and ectasia. There is no eviden ce for aneurysm. Upper Abdomen: No focal or acute abnormality. Osseous structures: Nothing acute. There is very advanced lower thoracic degenerative change. There is a moderate kyphosis. Surrounding soft tissues including the thyroid gland are normal. No supraclavicular or axillary adeno dedra. IMPRESSION: 1. No acute abnormality identified. 2. Atherosclerosis.
[2018-01-08] MEDS ORDERED: MIRTAZAPINE 30 MG PO SCH (13:30)
--- NOTE | 2018-01-08 13:36 | ED.PDOC ---
General ED Provider: Dr. CORBY GARCIA Chief Complaint: Shortness of Air Stated Complaint: SHORTNESS OF BREATH Time Seen by Physician: 11:33 Mode of Arrival: Walk-In Information Source: Patient Exam Limitations: No limitations Primary Care Provider: SHIRA DIAZ Nursing and Triage Documentation Reviewed and Agree: Yes Reviewed sepsis parameters & appropriate labs ordered?: Yes System Inflammatory Response Syndrome: Not Applicable Sepsis Protocol: For patient's 13 years and over: Temp is 96.8 and below OR 101 and greater Pulse >90 BPM Resp >20/minute Acutely Altered Mental Status Are patient's symptoms suggestive of a new infection, such as: -Pneumonia -Skin, Soft Tissue -Endocarditis -UTI -Bone, Joint Infection -Implantable Device -Acute Abdominal Infection -Wound Infection -Meningitis -Blood Stream Catheter Infection -Unknown Respiratory Complaint Exam - Respiratory Complaint/Exam Onset/Duration: 3 DAYS Symptoms Are: Still present Timing: Intermittent Initial Severity: Moderate Current Severity: Moderate Location: Throat, Chest Character: Reports: Non-productive cough Aggravating: Reports: URI Alleviating: Reports: Upright position Associated Signs and Symptoms: Reports: Chills, Wheezing, URI, Nasal congestion. Denies: Rapid breathing, Dyspnea, Fever, Chest pain, Pleuritic chest pain, Hemoptysis, Dizziness, Calf pain, Calf swelling, Edema, Hoarseness, Sinus discomfort, Vomiting, Sore throat, Weight loss, Decreased oral intake, Increased thirst, Increased appetite, Increased urination Related History: Reports: Similar episode History of Healthcare-Acquired Pneumonia: No Related Surgical History: Reports: None Pulmonary Embolism Risk Factors: Bedrest Cardiac Risk Factors: Reports: Elevated lipids, Hypertension Pseudomonas Risk Factors: Reports: None Tuberculosis Risk Factors: Reports: None Status Asthmaticus Risk Factors: Reports: None Home Oxygen Use: No Recent Stress Test: No Recent Echo/LV Function: No Current Antibiotic Use: No Current Asthma Medication Use: No Respiratory Distress: None Inadequate Respiratory Effort: No Dysphagia Present: No Stridor Present: No JVD Present: No Accessory Muscle Use: No Retractions: Not Present Diminished Breath Sounds: Yes Sinus Tenderness: None Grunting Respirations: No Kussmaul Respirations: No Differential Diagnoses: CHF, Pulmonary Edema, Pneumonia, Bronchitis, URI, Lower Resp. Infection Review of Systems - Review Of Systems Constitutional: Reports: Chills, Malaise, Weakness Eyes: Reports: No symptoms Ears, Nose, Mouth, Throat: Reports: No symptoms Respiratory: Reports: Cough, Wheezing Cardiac: Reports: No symptoms GI: Reports: No symptoms : Reports: No symptoms Musculoskeletal: Reports: No symptoms Skin: Reports: No symptoms Neurological: Reports: No symptoms Endocrine: Reports: No symptoms Hematologic/Lymphatic: Reports: No symptoms All Other Systems: Reviewed and Negative Past Medical History - Past Medical History Previously Healthy: No Endocrine: Reports: Dyslipidemia Cardiovascular: Reports: Hypertension Respiratory: Reports: COPD Hematological: Reports: None Gastrointestinal: Reports: None Genitourinary: Reports: None Neuro/Psych: Reports: None Musculoskeletal: Reports: None Cancer: Reports: None Last Menstrual Period: none - Surgical History General Surgical History: Reports: None - Family History Family History: Reports: None - Social History Smoking Status: Current every day smoker, Heavy tobacco smoker Hx Substance Use: No Alcohol Screening: None Physical Exam - Physical Exam Appearance: Ill-appearing Ill-appearing: Moderate Pain Distress: Mild Eyes: GUIDO, EOMI, Conjunctiva clear ENT: Ears normal, Nose normal, Oropharynx normal Respiratory: Breath sounds diminished, Rhonchi Cardiovascular: RRR, Pulses normal, No rub, No murmur GI/: Soft, Nontender, No masses, Bowel sounds normal, No Organomegaly Musculoskeletal: Normal strength, ROM intact, No edema, No calf tenderness Skin: Warm, Dry, Normal color Neurological: Sensation intact, Motor intact, Reflexes intact, Cranial nerves intact, Alert, Oriented Psychiatric: Affect appropriate, Mood appropriate Interpretation - Radiology Interpretation Radiology Interpretation By: Radiologist Radiology Results: No acute changes Physician Notification - Case Discussed Physician Notified: PMD Time of Notification: 13:36 Admit To: Inpatient Critical Care Note - Critical Care Note Total Time (mins): 0 Course - Course Hematology/Chemistry: 01/08/18 12:20 01/08/18 12:20 Orders, Labs, Meds: Lab Review 01/08/18 01/08/18 01/08/18 12:20 12:20 12:20 WBC 11.23 H RBC 4.40 Hgb 13.9 Hct 38.7 MCV 88.0 MCH 31.6 H MCHC 35.9 H RDW Coeff of Sharon 11.9 Plt Count 292 Immature Gran % (Auto) 0.9 Neut % (Auto) 61.2 Lymph % (Auto) 28.8 [place] % (Auto) 8.4 Eos % (Auto) 0.3 Baso % (Auto) 0.4 Immature Gran # (Auto) 0.1 Neut # (Auto) 6.9 Lymph # (Auto) 3.2 [place] # (Auto) 0.9 Eos # (Auto) 0.0 Baso # (Auto) 0.0 Puncture Site O2 Saturation ABG pH ABG pCO2 ABG pO2 ABG HCO3 ABG Total CO2 ABG Base Excess Nemesio Test FiO2 % Sodium 128 L Potassium 3.7 Chloride 93 L Carbon Dioxide 24 Anion Gap 14.7 BUN 10 Creatinine 0.76 Estimated GFR (MDRD) 75.00 BUN/Creatinine Ratio 13.15 Glucose 101 Lactic Acid 17.3 Calcium 9.6 Total Bilirubin 1.1 AST 16 ALT 17 Alkaline Phosphatase 98 Total Creatine Kinase 104 Troponin I < 0.0100 Total Protein 7.6 Albumin 4.0 Globulin 3.6 Albumin/Globulin Ratio 1.11 01/08/18 12:25 WBC RBC Hgb Hct MCV MCH MCHC RDW Coeff of Sharon Plt Count Immature Gran % (Auto) Neut % (Auto) Lymph % (Auto) [place] % (Auto) Eos % (Auto) Baso % (Auto) Immature Gran # (Auto) Neut # (Auto) Lymph # (Auto) [place] # (Auto) Eos # (Auto) Baso # (Auto) Puncture Site R brach O2 Saturation 97.0 ABG pH 7.49 H ABG pCO2 30.7 L ABG pO2 80.0 L ABG HCO3 23.3 ABG Total CO2 24 ABG Base Excess 0 Nemesio Test + FiO2 % 21.0 Sodium Potassium Chloride Carbon Dioxide Anion Gap BUN Creatinine Estimated GFR (MDRD) BUN/Creatinine Ratio Glucose Lactic Acid Calcium Total Bilirubin AST ALT Alkaline Phosphatase Total Creatine Kinase Troponin I Total Protein Albumin Globulin Albumin/Globulin Ratio Orders Category Date Time Status ABG DRAW REQUEST Stat CARDIO 01/08/18 12:09 Completed EKG-(ED ONLY) Stat CARDIO 01/08/18 12:10 Completed EKG-(IP & OP ONLY) DAILY CARDIO 01/09/18 06:00 Ordered EKG-(IP & OP ONLY) DAILY CARDIO 01/10/18 06:00 Ordered EKG-(IP & OP ONLY) DAILY CARDIO 01/11/18 06:00 Ordered NEBULIZER TREATMENT Stat CARDIO 01/08/18 12:09 Completed NEBULIZER TREATMENT Stat CARDIO 01/08/18 13:32 Ordered ACTIVITY .Complete BR CARE 01/08/18 13:32 Ordered VITAL SIGNS Q8HR CARE 01/08/18 13:32 Ordered REGULAR DIET DIETARY 01/08/18 Dinner Ordered ED IV/MEDIPORT/POWERPORT .ONCE EMERGENCY 01/08/18 12:10 Active ABG Stat LAB 01/08/18 12:25 Completed BLOOD CULTURE (ED ONLY) Stat LAB 01/08/18 12:20 Received CBC W/ AUTO DIFF DAILY@0600 LAB 01/09/18 06:00 Ordered CBC W/ AUTO DIFF DAILY@0600 LAB 01/10/18 06:00 Ordered CBC W/ AUTO DIFF Stat LAB 01/08/18 12:20 Completed COMPREHENSIVE METABOLIC PANEL DAILY@0600 LAB 01/09/18 06:00 Ordered COMPREHENSIVE METABOLIC PANEL DAILY@0600 LAB 01/10/18 06:00 Ordered COMPREHENSIVE METABOLIC PANEL Stat LAB 01/08/18 12:20 Completed CREATINE KINASE Stat LAB 01/08/18 12:20 Completed LACTIC ACID Stat LAB 01/08/18 12:20 Completed TROPONIN I Stat LAB 01/08/18 12:20 Completed 0.9 % Sodium Chloride [Saline Flush] MEDS 01/08/18 12:10 Ordered 1 syr IVF PRN PRN Aspirin [Aspirin Chewable] MEDS 01/09/18 08:00 Ordered 162 mg PO DAILYWM Ceftriaxone Sodium [Rocephin] 1 gm MEDS 01/09/18 09:00 Ordered 0.9 % Sodium Chloride [Sodium Chloride] 50 ml IV DAILY Ipratropium/Albuterol Neb [Duoneb] MEDS 01/08/18 12:09 Discontinued 1 vial NEB ONCE STA Ipratropium/Albuterol Neb [Duoneb] MEDS 01/08/18 18:00 Ordered 1 vial NEB RTQ6H Levofloxacin/D5w [Levaquin] 500 mg MEDS 01/09/18 09:00 Ordered Premix 100 ml D5w 1 bag IV DAILY Lorazepam [Ativan] MEDS 01/08/18 13:30 Ordered 0.5 mg PO TID PRN Losartan Potassium [Cozaar] MEDS 01/09/18 09:00 Ordered 100 mg PO DAILY Lovastatin [Mevacor] MEDS 01/09/18 09:00 Ordered 40 mg PO DAILY Methylprednisolone Sod Succ/Pf [Solu-Medrol 125 mg] MEDS 01/08/18 12:09 Discontinued 125 mg IVP ONCE STA Methylprednisolone Sod Succ/Pf [Solu-Medrol 40 mg] MEDS 01/08/18 21:00 Ordered 40 mg IVP Q8HR Mirtazapine [Remeron] MEDS 01/08/18 13:30 Ordered 30 mg PO BID BREAKFAST\T\LUNCH Potassium Chloride in 0.9%NaCl [Sodium Chloride 0.9%- MEDS 01/08/18 14:00 Ordered KCl 20 Meq] 1,000 ml IV 75 mls/hr Sodium Chloride 0.9% [Sodium Chloride] 1,000 ml MEDS 01/08/18 14:00 Ordered IV 75 mls/hr CT CHEST W/O CONTRAST Stat RADS 01/08/18 12:08 Completed Medications Generic Name Dose Route Start Last Admin Trade Name Freq PRN Reason Stop Dose Admin Albuterol/Ipratropium 1 vial 01/08/18 18:00 Duoneb NEB RTQ6H NAMAN Aspirin 162 mg 01/09/18 08:00 Aspirin Chewable PO DAILYWM [facility] Ceftriaxone Sodium 1 gm/ 50 mls @ 75 mls/hr 01/09/18 09:00 Sodium Chloride IV DAILY NAMAN Levofloxacin/Dextrose 500 mg/ 100 mls @ 100 mls/hr 01/09/18 09:00 Dextrose IV DAILY NAMAN Sodium Chloride 1,000 mls @ 75 mls/hr 01/08/18 14:00 Sodium Chloride IV .[id number] NAMAN Potassium Chloride/Sodium Chloride 1,000 mls @ 75 mls/hr 01/08/18 14:00 Sodium Chloride 0.9%-Kcl 20 Meq IV .[id number] NAMAN Lorazepam 0.5 mg 01/08/18 13:30 Ativan PO TID PRN Anxiety Losartan Potassium 100 mg 01/09/18 09:00 Cozaar PO DAILY NAMAN Lovastatin 40 mg 01/09/18 09:00 Mevacor PO DAILY NAMAN Methylprednisolone Sodium Succinate 40 mg 01/08/18 21:00 Solu-Medrol 40 Mg IVP Q8HR NAMAN Non-Formulary Medication 30 mg 01/08/18 13:30 Mirtazapine [Remeron] PO BID BREAKFAST\T\LUNCH NAMAN Sodium Chloride 1 syr 01/08/18 12:10 Saline Flush IVF PRN PRN To flush IV Discontinued Medications Generic Name Dose Route Start Last Admin Trade Name Freq PRN Reason Stop Dose Admin Albuterol/Ipratropium 1 vial 01/08/18 12:09 01/08/18 12:30 Duoneb NEB 01/08/18 12:10 1 vial ONCE STA Administration Methylprednisolone Sodium Succinate 125 mg 01/08/18 12:09 01/08/18 12:47 Solu-Medrol 125 Mg IVP 01/08/18 12:10 125 mg ONCE STA Administration Vital Signs: Temp Pulse Resp BP Pulse Ox 01/08/18 11:31 97.2 F L 82 20 167/98 H 95 Departure - Departure Time of Disposition: 13:36 Disposition: ADMITTED INPATIENT Discharge Problem: COPD (chronic obstructive pulmonary disease) Qualifiers: COPD type: unspecified COPD Qualified Code(s): J44.9 - Chronic obstructive pulmonary disease, unspecified Instructions: COPD (Chronic Obstructive Pulmonary Disease) (ED) Condition: Good Pt referred to PMD for follow-up: Yes (ADMITT) IPMP verified?: No Additional Instructions: Please call your Family Physician as soon as possible to schedule a follow-up appointment. Allergies/Adverse Reactions: Allergies simvastatin [From Zocor] Allergy (Mild, Verified 01/08/18 11:38) Rash atorvastatin [From Lipitor] Adverse Reaction (Mild, Verified 01/08/18 11:38) muscle pain rosuvastatin [From Crestor] Adverse Reaction (Mild, Verified 01/08/18 11:38) muscle pain Home Medications: Ambulatory Orders Aspirin [Aspirin Chewable] 2 tab PO DAILYWM 08/30/13 Lovastatin [Mevacor] 40 mg PO DAILY 08/30/13 Albuterol Sulfate [Proventil Hfa] 1 inh IH BID PRN 10/13/16 Losartan Potassium [Cozaar] 100 mg PO DAILY #30 tablet 10/15/16 Lorazepam [Ativan] 0.5 mg PO TID PRN 10/26/17 Mirtazapine [Remeron] 30 mg PO BID BREAKFAST\T\LUNCH 10/26/17 Cholecalciferol (Vitamin D3) [Vitamin D3] 1,000 unit PO DAILY 01/06/18 [place]-3 Fatty Acids/Fish Oil [Fish Oil 1,000 mg Capsule] 1 each PO DAILY Prednisone 10 mg PO DAILY 5 Days #5 tab.ds.pk 01/06/18 Disposition Discussed With: Patient
[2018-01-08] MEDS ORDERED: SODIUM CHLORIDE 0.9%-KCL 20 MEQ 1,000 ML IV SCH (14:00)
[2018-01-08] MEDS ORDERED: ROCEPHIN 1 GM in SODIUM CHLORIDE 50 ML IV STA (14:11)
[2018-01-08] MEDS ORDERED: ROCEPHIN ONE (14:13)
[2018-01-08 15:26] VITALS: BMI 20.2
[2018-01-08] MEDS: SODIUM CHLORIDE 1,000 ML IV SCH (15:26)
[2018-01-08] MEDS: DUONEB NEB SCH ×2 (18:01→22:07)
[2018-01-08] MEDS ORDERED: TORADOL IVP PRN (20:25)
[2018-01-08] MEDS: ATIVAN PO PRN (20:47)
[2018-01-08] MEDS: SOLU-MEDROL 40 MG IVP SCH (20:47)
[2018-01-08] MEDS: NORCO 7.5-325 PO PRN (20:47)
[2018-01-09] MEDS: DUONEB NEB SCH ×4 (05:00→19:54)
[2018-01-09] MEDS: SOLU-MEDROL 40 MG IVP SCH ×3 (05:55→20:01)
[2018-01-09] MEDS: SODIUM CHLORIDE 1,000 ML IV SCH (05:56)
[2018-01-09] MEDS: NORCO 7.5-325 PO PRN ×3 (08:01→21:19)
[2018-01-09] MEDS ORDERED: LEVAQUIN 500 MG in PREMIX 100 ML D5W 1 BAG IV SCH (09:00)
--- NOTE | 2018-01-09 09:01 | PCM.PROG ---
Attending Provider: ATTENDING PROVIDER: Dr. SHIRA DIAZ This patient is seen with Lelo Norman, Nurse Practitioner. DATE OF SERVICE: 01/09/18 SUBJECTIVE: This 72 year old WHITE/ F was hospitalized 01/08/18. The patient is lying in bed, alert. Shortness of breath has improved. Sodium has improved with IV fluids. The patient did not sleep very well last night. REVIEW OF SYSTEMS: CONSTITUTIONAL: No night sweats. No fatigue, malaise, lethargy. No fever or chills. HEENT: Eyes: No visual changes. No eye pain. No eye discharge. ENT: No runny nose. No epistaxis. No sinus pain. No odynophagia. No congestion. RESPIRATORY: Positive for cough and shortness of breath. No hemoptysis. CARDIOVASCULAR: No angina symptoms. No CHF symptoms. No atypical chest pain for CAD. No palpitations. No orthopnea.. GASTROINTESTINAL: No abdominal pain. No nausea or vomiting. No diarrhea or constipation. No hematemesis. No hematochezia. GENITOURINARY: No urgency. No frequency. No dysuria. No hematuria. No obstructive symptoms. No discharge. No pain. No significant abnormal bleeding. MUSCULOSKELETAL: No musculoskeletal pain; no joint swelling. NEUROLOGICAL: Awake, alert, oriented to time, place and person. No headache. No neck pain. No syncope. No seizures. No dizziness. PSYCHIATRIC: Not anxious. No depression. No suicidal thoughts. No homicidal thoughts. SKIN: No rash. No lesions. No wounds. ENDOCRINE: No unexplained weight loss. No weight gain. HEMATOLOGIC/LYMPHATIC: No anemia. No purpura. No petechiae. No prolonged or excessive bleeding. No palpable lymph nodes. PHYSICAL EXAMINATION: GENERAL: The patient is awake, alert and oriented, lying bed in no distress. VITAL SIGNS: Temperature 97.7 F, Pulse 94, Respiratory Rate 17, BP 139/76, Pulse Ox 94% HEENT: Head normocephalic, atraumatic. Eyes: Extraocular muscles are intact. Pupils are equal, round and reactive to light and accommodation. Ears: No lesions. Nose appeared normal. Throat: No exudate or erythema. NECK: Supple. No JVD, no carotid bruit. No lymphadenopathy or thyromegaly. LUNGS: Diminished breath sounds bilaterally. Expiratory wheeze. Percussion note normal. Chest symmetrical. HEART: S1, S2, no S3. No murmurs. No cyanosis or clubbing. No ascites. Pulses: Dorsalis pedis and posterior tibial pulses +1 to +2 both sides. ABDOMEN: Soft. Non-tender. Bowel sounds active. No CVA tenderness. No mass felt. EXTREMITIES: No edema. Full range of motion of all extremities, equal. NEUROLOGIC: No focal deficit. Cranial nerves II through XII are grossly intact. No headache, no double vision or headache. SKIN: Not dry. Intact. Turgor-normal. LYMPHATIC: No palpable lymph nodes/no lymphedema. MUSCULOSKELETAL: Normal joints with no swelling. Muscle tone is normal. LAB REVIEW: 01/09/18 04:30 01/09/18 04:30 01/09/18 04:30: Sodium 131 L, Potassium 4.0, Chloride 98, Carbon Dioxide 21 L, Anion Gap 16.0, BUN 15, Creatinine 0.79, Estimated GFR (MDRD) 72.00, BUN/ Creatinine Ratio 18.98, Glucose 249 H D, Calcium 9.2, Total Bilirubin 0.7, AST 11 L, ALT 16, Alkaline Phosphatase 100, Total Protein 7.2, Albumin 3.7, Globulin 3.5, Albumin/Globulin Ratio 1.06, TSH 1.298 01/09/18 04:30: WBC 11.62 H, RBC 4.30, Hgb 13.7, Hct 38.4, MCV 89.3, MCH 31.9 H , MCHC 35.7 H, RDW Coeff of Sharon 11.9, Plt Count 298, Immature Gran % (Auto) 1.1 , Neut % (Auto) 83.3, Lymph % (Auto) 10.4, [place] % (Auto) 5.0, Eos % (Auto) 0.0, Baso % (Auto) 0.2, Immature Gran # (Auto) 0.1, Neut # (Auto) 9.7 H, Lymph # ( Auto) 1.2, [place] # (Auto) 0.6, Eos # (Auto) 0.0, Baso # (Auto) 0.0 01/08/18 12:25: Puncture Site R brach, O2 Saturation 97.0, ABG pH 7.49 H, ABG pCO2 30.7 L, ABG pO2 80.0 L, ABG HCO3 23.3, ABG Total CO2 24, ABG Base Excess 0 , [place]emsio Test +, FiO2 % 21.0 01/08/18 12:20: Lactic Acid 17.3 01/08/18 12:20: Sodium 128 L, Potassium 3.7, Chloride 93 L, Carbon Dioxide 24, Anion Gap 14.7, BUN 10, Creatinine 0.76, Estimated GFR (MDRD) 75.00, BUN/ Creatinine Ratio 13.15, Glucose 101, Calcium 9.6, Total Bilirubin 1.1, AST 16, ALT 17, Alkaline Phosphatase 98, Total Creatine Kinase 104, Troponin I < 0.0100 , Total Protein 7.6, Albumin 4.0, Globulin 3.6, Albumin/Globulin Ratio 1.11 01/08/18 12:20: WBC 11.23 H, RBC 4.40, Hgb 13.9, Hct 38.7, MCV 88.0, MCH 31.6 H , MCHC 35.9 H, RDW Coeff of Sharon 11.9, Plt Count 292, Immature Gran % (Auto) 0.9 , Neut % (Auto) 61.2, Lymph % (Auto) 28.8, [place] % (Auto) 8.4, Eos % (Auto) 0.3, Baso % (Auto) 0.4, Immature Gran # (Auto) 0.1, Neut # (Auto) 6.9, Lymph # (Auto ) 3.2, [place] # (Auto) 0.9, Eos # (Auto) 0.0, Baso # (Auto) 0.0 ASSESSMENT: 1. ACUTE BRONCHITIS 2. COPD EXACERBATION 3. HYPONATREMIA 4. SMOKER PLAN: 1. Finish out this bag of fluids then discontinue 2. Discontinue Levaquin 3. Continue IV Rocephin Plan and coordination of the patient's care discussed in the presence of Operational Risk Consultant and nurse. CONDITION: Stable SCRIBED BY: KATHY HAILE Wire Technician scribed while in presence of service performed by Dr. Diaz/Lelo Norman APRN on 01/09/18 ([id number])
[2018-01-09] MEDS: ASPIRIN CHEWABLE PO SCH (10:04)
[2018-01-09] MEDS: ROCEPHIN 1 GM in SODIUM CHLORIDE 50 ML IV SCH (10:04)
[2018-01-09] MEDS: MEVACOR PO SCH (10:05)
[2018-01-09] MEDS: REMERON PO SCH ×2 (10:05→13:36)
[2018-01-09] MEDS: COZAAR PO SCH (10:05)
[2018-01-09] MEDS: ATIVAN PO PRN (21:19)
[2018-01-10] MEDS: DUONEB NEB SCH ×4 (05:40→20:30)
[2018-01-10] MEDS: SOLU-MEDROL 40 MG IVP SCH (05:53)
[2018-01-10] MEDS: REMERON PO SCH (08:03)
[2018-01-10] MEDS: ASPIRIN CHEWABLE PO SCH (08:03)
[2018-01-10] MEDS: MEVACOR PO SCH (08:04)
[2018-01-10] MEDS: COZAAR PO SCH (08:04)
[2018-01-10] MEDS: ROCEPHIN 1 GM in SODIUM CHLORIDE 50 ML IV SCH (08:04)
[2018-01-10] MEDS ORDERED: ATIVAN PO PRN (08:40)
--- NOTE | 2018-01-10 08:48 | PCM.PROG ---
Attending Provider: ATTENDING PROVIDER: Dr. SHIRA DIAZ This patient is seen with Lelo Norman, Nurse Practitioner. DATE OF SERVICE: 01/10/18 SUBJECTIVE: This 72 year old WHITE/ F was hospitalized 01/08/18. The patient is sitting on the side of bed, alert. She didn't sleep last night. Blood pressure is elevated. Cough is slightly improved. REVIEW OF SYSTEMS: CONSTITUTIONAL: Fatigue. No night sweats. No malaise, lethargy. No fever or chills. HEENT: Eyes: No visual changes. No eye pain. No eye discharge. ENT: No runny nose. No epistaxis. No sinus pain. No odynophagia. No congestion. RESPIRATORY: Cough, congestion. No hemoptysis. No shortness of breath. CARDIOVASCULAR: No angina symptoms. No CHF symptoms. No atypical chest pain for CAD. No palpitations. No orthopnea.. GASTROINTESTINAL: No abdominal pain. No nausea or vomiting. No diarrhea or constipation. No hematemesis. No hematochezia. GENITOURINARY: No urgency. No frequency. No dysuria. No hematuria. No obstructive symptoms. No discharge. No pain. No significant abnormal bleeding. MUSCULOSKELETAL: No musculoskeletal pain; no joint swelling. NEUROLOGICAL: Awake, alert, oriented to time, place and person. No headache. No neck pain. No syncope. No seizures. No dizziness. PSYCHIATRIC: Not anxious. No depression. No suicidal thoughts. No homicidal thoughts. SKIN: No rash. No lesions. No wounds. ENDOCRINE: No unexplained weight loss. No weight gain. HEMATOLOGIC/LYMPHATIC: No anemia. No purpura. No petechiae. No prolonged or excessive bleeding. No palpable lymph nodes. PHYSICAL EXAMINATION: GENERAL: The patient is awake, alert and oriented, sitting in bed in no distress. VITAL SIGNS: Temperature 97.5 F, Pulse 71, Respiratory Rate 17, BP 161/91, Pulse Ox 93% HEENT: Head normocephalic, atraumatic. Eyes: Extraocular muscles are intact. Pupils are equal, round and reactive to light and accommodation. Ears: No lesions. Nose appeared normal. Throat: No exudate or erythema. NECK: Supple. No JVD, no carotid bruit. No lymphadenopathy or thyromegaly. LUNGS: Diminished breath sounds bilaterally. Clear to auscultation. Percussion note normal. Chest symmetrical. HEART: S1, S2, no S3. No murmurs. No cyanosis or clubbing. No ascites. Pulses: Dorsalis pedis and posterior tibial pulses +1 to +2 both sides. ABDOMEN: Soft. Non-tender. Bowel sounds active. No CVA tenderness. No mass felt. EXTREMITIES: No edema. Full range of motion of all extremities, equal. NEUROLOGIC: No focal deficit. Cranial nerves II through XII are grossly intact. No headache, no double vision or headache. SKIN: Not dry. Intact. Turgor-normal. LYMPHATIC: No palpable lymph nodes/no lymphedema. MUSCULOSKELETAL: Normal joints with no swelling. Muscle tone is normal. LAB REVIEW: 01/10/18 04:30 01/10/18 04:30 01/10/18 04:30: Sodium 134 L, Potassium 4.3, Chloride 103, Carbon Dioxide 22 L, Anion Gap 13.3, BUN 23 H, Creatinine 0.81, Estimated GFR (MDRD) 70.00, BUN/ Creatinine Ratio 28.39, Glucose 245 H, Calcium 9.0, Total Bilirubin 0.6, AST 9 L , ALT 15, Alkaline Phosphatase 95, Total Protein 6.6, Albumin 3.3 L, Globulin 3.3, Albumin/Globulin Ratio 1.00 01/10/18 04:30: WBC 12.91 H, RBC 3.99 L, Hgb 12.7, Hct 36.0 L, MCV 90.2, MCH 31.8 H, MCHC 35.3, RDW Coeff of [place] 12.1, Plt Count 279, Immature Gran % (Auto) 1.9, Neut % (Auto) 85.1, Lymph % (Auto) 6.8 L, [place] % (Auto) 5.7, Eos % (Auto) 0.2, Baso % (Auto) 0.3, Immature Gran # (Auto) 0.3, Neut # (Auto) 11.0 H, Lymph # (Auto) 0.9, [place] # (Auto) 0.7, Eos # (Auto) 0.0, Baso # (Auto) 0.0 ASSESSMENT: 1. ACUTE BRONCHITIS 2. HYPERTENSION 3. COPD EXACERBATION 4. HYPONATREMIA, IMPROVED 5. SMOKER PLAN: 1. Norvasc 5 mg daily. 2. Give Remeron breakfast and bedtime today. 3. D/C Solu-Medrol. 4. Norvasc 5 mg for blood pressure. 5. Prednisone 10 mg p.o. b.i.d. 6. Ativan 1 mg tonight. 7. D/C IV fluids. 8. Echocardiogram. Plan and coordination of the patient's care discussed in the presence of Buffing Line Set Up Worker and nurse. CONDITION: Stable SCRIBED BY: KATHY HAILE Right Of Way Agent scribed while in presence of service performed by Dr. Diaz/Lelo Norman APRN on 01/10/18 ([id number])
[2018-01-10] MEDS: NORVASC PO SCH (11:02)
--- NOTE | 2018-01-10 11:57 | HP ---
DATE OF SERVICE: 01/09/18 (ADMITTED 01/08/18) HISTORY OF PRESENT ILLNESS: This is a 72-year-old female who presented to the emergency room complaining of shortness of breath and cough. She has a history of severe COPD. She was just int he emergency room three days ago and was given Prednisone prescription and still suffering from shortness of breath. PAST MEDICAL HISTORY: Obesity Dyslipidemia Hypertension COPD Smoker Hypertension Anxiety Restless leg syndrome Chronic bronchitis PAST SURGICAL HISTORY: Cholecystectomy Partial hysterectomy Bilateral cataract extraction REVIEW OF SYSTEMS: CONSTITUTIONAL: No night sweats. No fatigue, malaise, lethargy. No fever or chills. HEENT: Eyes: No visual changes. No eye pain. No eye discharge. ENT: No runny nose. No epistaxis. No sinus pain. No sore throat. No odynophagia. No ear pain. No congestion. RESPIRATORY: Positive for cough, wheeze and shortness of breath. No hemoptysis. CARDIOVASCULAR: No angina symptoms. No CHF symptoms. No atypical chest pain for CAD. No palpitations. No PND. No orthopnea. GASTROINTESTINAL: No abdominal pain. No nausea or vomiting. No diarrhea or constipation. No hematemesis. No hematochezia. GENITOURINARY: No urgency. No frequency. No dysuria. No hematuria. No obstructive symptoms. No discharge. No pain. No significant abnormal bleeding. MUSCULOSKELETAL: No musculoskeletal pain. No joint swelling. No arthritis. NEUROLOGICAL: No headache. No neck pain. No syncope. No seizures. No dizziness. PSYCHIATRIC: Not anxious. No depression. No suicidal thoughts. No homicidal thoughts. SKIN: No rash. No lesions. No wounds. ENDOCRINE: No unexplained weight loss. No weight gain. HEMATOLOGIC/LYMPHATIC: No anemia. No purpura. No petechiae. No prolonged or excessive bleeding. No palpable lymph nodes. PERSONAL/FAMILY/SOCIAL HISTORY: The patient was recently . She is a current heavy every day smoker. No alcohol or ilicit drug use. MEDICATIONS: (HOME) Mevacor 40 mg p.o. daily Aspirin 81 mg two tab p.o. daily with meal Albuterol (Proventil HFA) one INH b.i.d. p.r.n. Cozaar 100 mg p.o. daily Remeron 30 mg p.o. b.i.d. Breakfast/lunch Ativan 0.5 mg p.o. t.i.d. p.r.n. [place]-3 Fatty Acids/Fish Oil one each p.o. daily Cholecalciferol 1,000 unit p.o. daily ALLERGIES: SIMVASTATIN, ATORVASTATIN, ROSUVASTATIN PHYSICAL EXAMINATION: HEENT: Head normocephalic, atraumatic. Eyes: Extraocular muscles are intact. Pupils are equal, round and reactive to light and accommodation. Ears: No lesions. Nose appeared normal. Throat: No exudate or erythema. NECK: Supple. No JVD, no carotid bruit. No lymphadenopathy or thyromegaly. LUNGS: Diminished breath sounds bilaterally with bilateral epiratory wheeze and bilateral rhonchi. HEART: S1, S2, no S3. No murmurs. No cyanosis or clubbing. No ascites. Pulses: Dorsalis pedis and posterior tibial pulses +1 to +2 bilaterally. ABDOMEN: Soft. Nontender. Bowel sounds active. No CVA tenderness. No mass felt. EXTREMITIES: No edema. Full range of motion of all extremities, equal. NEUROLOGIC: No focal deficit. Cranial nerves II through XII are grossly intact. No headache, no double vision or headache. SKIN: Not dry. Intact. Turgor - normal. LYMPHATIC: No palpable lymph nodes/no lymphedema. MUSCULOSKELETAL: Normal joints with no swelling. Muscle tone is normal. Chest x-ray shows no acute cardiopulmonary process. White count 7.83, hemoglobin 13.9, hematocrit 38.7, platelets 251. CT of the chest shows atherosclerosis, no acute abnormality. ABGs on room air: pH 7.49, pc02 30.7, p02 80, bicarb 23.3, TC02 24, 02 sat 97. Sodium 128, potassium 3.7, chloride 93 , BUN 10, creatinine 0.76, glucose 101, AST 16, ALT 17. Alkaline phosphatase 98. ASSESSMENT: 1. ACUTE BRONCHITIS 2. COPD WITH EXACERBATION 3. HEAVY SMOKER 4. HYPONATREMIA 5. HYPERTENSION 6. DYSLIPIDEMIA 7. ANXIETY 8. OSTEOARTHRITIS PLAN: 1. Admit with routine telemetry orders. 2. CBC, CMP today and daily. 3. Normal Saline at 83 cc/hr IV. 4. Solu-Medrol 80 mg IV q.8hr. 5. Start Duonebs q.6hr scheduled. 6. Rocephin 1 gm IV daily. 7. Continue all home medications. 8. Regular low sodium diet. 9. Will follow closely. TIME SPENT: More than 70 minutes. SUSAN
[2018-01-10] MEDS: NORCO 7.5-325 PO PRN ×2 (14:35→20:40)
[2018-01-10] MEDS: PREDNISONE PO SCH (17:40)
[2018-01-10] MEDS ORDERED: ATIVAN PO SCH (21:00)
[2018-01-11] MEDS: DUONEB NEB SCH ×2 (06:00→10:26)
[2018-01-11] MEDS: MEVACOR PO SCH (08:31)
[2018-01-11] MEDS: ASPIRIN CHEWABLE PO SCH (08:31)
[2018-01-11] MEDS: ROCEPHIN 1 GM in SODIUM CHLORIDE 50 ML IV SCH (08:31)
[2018-01-11] MEDS: NORVASC PO SCH (08:32)
[2018-01-11] MEDS: COZAAR PO SCH (08:32)
[2018-01-11] MEDS: PREDNISONE PO SCH (08:32)
[2018-01-11] MEDS ORDERED: VASOTEC IV IVP STA (08:48)
[2018-01-11] MEDS ORDERED: HYDROCHLOROTHIAZIDE PO STA (08:49)
--- NOTE | 2018-01-11 09:09 | PCM.PROG ---
Attending Provider: ATTENDING PROVIDER: Dr. SHIRA DIAZ DATE OF SERVICE: 01/11/18 SUBJECTIVE: This 72 year old WHITE/ F was hospitalized 01/08/18. The patient is hospitalized with acute bronchitis and chronic lung disease. She has underlying psychosomatic problems and is being followed by [facility]. REVIEW OF SYSTEMS: CONSTITUTIONAL: No night sweats. No fatigue, malaise, lethargy. No fever or chills. HEENT: Eyes: No visual changes. No eye pain. No eye discharge. ENT: No runny nose. No epistaxis. No sinus pain. No odynophagia. No congestion. RESPIRATORY: No cough, no congestion. No hemoptysis. No shortness of breath. CARDIOVASCULAR: No angina symptoms. No CHF symptoms. No atypical chest pain for CAD. No palpitations. No orthopnea.. GASTROINTESTINAL: No abdominal pain. No nausea or vomiting. No diarrhea or constipation. No hematemesis. No hematochezia. GENITOURINARY: No urgency. No frequency. No dysuria. No hematuria. No obstructive symptoms. No discharge. No pain. No significant abnormal bleeding. MUSCULOSKELETAL: No musculoskeletal pain; no joint swelling. NEUROLOGICAL: Awake, alert, oriented to time, place and person. No headache. No neck pain. No syncope. No seizures. No dizziness. PSYCHIATRIC: Not anxious. No depression. No suicidal thoughts. No homicidal thoughts. SKIN: No rash. No lesions. No wounds. ENDOCRINE: No unexplained weight loss. No weight gain. HEMATOLOGIC/LYMPHATIC: No anemia. No purpura. No petechiae. No prolonged or excessive bleeding. No palpable lymph nodes. PHYSICAL EXAMINATION: GENERAL: The patient is awake, alert and oriented, lying/sitting in bed in no distress. VITAL SIGNS: Temperature 97.6 F, Pulse 88, Respiratory Rate 16, BP 171/93, Pulse Ox 97% HEENT: Head normocephalic, atraumatic. Eyes: Extraocular muscles are intact. Pupils are equal, round and reactive to light and accommodation. Ears: No lesions. Nose appeared normal. Throat: No exudate or erythema. NECK: Supple. No JVD, no carotid bruit. No lymphadenopathy or thyromegaly. LUNGS: Clear to auscultation. Percussion note normal. Chest symmetrical. HEART: S1, S2, no S3. No murmurs. No cyanosis or clubbing. No ascites. Pulses: Dorsalis pedis and posterior tibial pulses +1 to +2 both sides. ABDOMEN: Soft. Non-tender. Bowel sounds active. No CVA tenderness. No mass felt. EXTREMITIES: No edema. Full range of motion of all extremities, equal. NEUROLOGIC: No focal deficit. Cranial nerves II through XII are grossly intact. No headache, no double vision or headache. SKIN: Warm and dry. Intact. Turgor-normal. LYMPHATIC: No palpable lymph nodes/no lymphedema. MUSCULOSKELETAL: Normal joints with no swelling. Muscle tone is normal. LAB REVIEW: 01/11/18 05:00 01/11/18 05:00 01/11/18 05:00: Sodium 138, Potassium 4.0, Chloride 106, Carbon Dioxide 24, Anion Gap 12.0, BUN 26 H, Creatinine 0.75, Estimated GFR (MDRD) 76.00, BUN/ Creatinine Ratio 34.66, Glucose 150 H, Calcium 8.8, Total Bilirubin 0.7, AST 12 L, ALT 20, Alkaline Phosphatase 88, Total Protein 6.2, Albumin 3.1 L, Globulin 3.1, Albumin/Globulin Ratio 1.00 01/11/18 05:00: WBC 14.60 H, RBC 3.98 L, Hgb 12.6, Hct 36.2 L, MCV 91.0, MCH 31.7 H, MCHC 34.8, RDW Coeff of [place] 12.4, Plt Count 285, Immature Gran % (Auto) 2.0, Neut % (Auto) 67.2, Lymph % (Auto) 20.1, [place] % (Auto) 10.0, Eos % (Auto) 0.3, Baso % (Auto) 0.4, Immature Gran # (Auto) 0.3, Neut # (Auto) 9.8 H, Lymph # (Auto) 2.9, [place] # (Auto) 1.5, Eos # (Auto) 0.0, Baso # (Auto) 0.1 ASSESSMENT: 1. Acute bronchitis/pneumonitis 2. Chronic lung disease from heavy smoking 3. Severe DJD generalized 4. Depression with no suicidal or homicidal ideations. The patient is being followed by [facility]. Continue followup with Dr. Ring PLAN: 1. Prednisone and Keflex 2. Counseling for smoking done 3. Echo is pending to evaluate LV function due to shortness of breath and fatigue 4. The patient is strongly advised to lose weight as BMI is in morbid obesity range 5. Will discharge home to be seen in the office in 4 to 5 days 6. The patient would benefit from nebulizer. This will be ordered for Albuterol to be used four times a day due to COPD and chronic bronchitis. Plan and coordination of the patient's care discussed in the presence of Porcelain Enameler and nurse. CONDITION: Stable SCRIBED BY: KATHY HAILE Postdoctoral Research Fellow scribed while in presence of service performed by Dr. SHIRA DIAZ on 01/11/18 (0801)
[2018-01-11 10:01] VITALS: TEMP 98
--- NOTE | 2018-01-11 11:39 | CM.DICTOOL ---
ADMISSION: 01/08/18 13:32 DISCHARGE: JANUARY 11, 2018 DATE OF SERVICE: 01/11/18 FINAL DIAGNOSIS COPD ACUTE BRONCHITIS HYPERTENSION HYPONATREMIA DYSLIPIDEMIA OSTEOARTHRITIS ADVANCED DEGENERATIVE CHANGES LOWER THORACIC SPINE TOBACCO USE DEPRESSION, FOLLOWED BY [facility] CHOLECYSTECTOMY PARTIAL HYSTERECTOMY BILATERAL CATARACT EXTRACTION LAST VITALS Temp Pulse Resp BP Pulse Ox 98.0 F 102 H 18 147/84 H 96 01/11/18 10:00 01/11/18 10:00 01/11/18 10:00 01/11/18 10:00 01/11/18 10:00 TAKE THESE MEDICATIONS AT HOME Albuterol Neb 1 vial NEB RTQID [facility] Last Admin: 01/11/18 10:26 Dose: 1 vial Amlodipine Besylate (Norvasc) 5 mg PO DAILY [facility] Last Admin: 01/11/18 08:32 Dose: 5 mg Aspirin (Aspirin Chewable) 162 mg PO DAILYWM [facility] Last Admin: 01/11/18 08:31 Dose: 162 mg Mevacor 40 mg PO Daily Last Admin: [place]-3 Fatty Acids/Fish Oil 1 Cap Daily Last Admin: Cholecalciferol (Vitamin D3) 1000 units PO Daily Last Admin: Lorazepam (Ativan) 0.5 mg PO TID PRN PRN Reason: Anxiety Losartan/Hydrochlorothiazide 100-12.5 mg PO DAILY [facility] Last Admin: 01/11/18 08:32 Dose: 100 mg Lovastatin (Mevacor) 40 mg PO DAILY [facility] Last Admin: 01/11/18 08:31 Dose: 40 mg Mirtazapine (Remeron) 30 mg PO BEDTIME [facility] Last Admin: Prednisone (Prednisone) 10 mg PO BIDWM [facility] Last Admin: 01/11/18 08:32 Dose: 10 mg ALLERGIES simvastatin [From Zocor] Allergy (Mild, Verified 01/08/18 11:38) Rash atorvastatin [From Lipitor] Adverse Reaction (Mild, Verified 01/08/18 11:38) muscle pain rosuvastatin [From Crestor] Adverse Reaction (Mild, Verified 01/08/18 11:38) muscle pain Discontinued Medications Hyzaar 100 mg NEW PRESCRIPTIONS: Hyzaar 100-12.5 mg daily Prednisone 10 mg BID for 5 days Keflex 500 mg BID for 5 days Albuterol 0.083% for nebulizer Amlodipine 5 mg daily SMOKING: ADVISED TO STOP SMOKING DISEASE SPECIFIC EDUCATION: SMOKING CESSATION WEIGHT LOSS ADVISED TO REDUCE BMI USE OF STEROIDS AND RISK OF GI IRRITATION, BONE DEMINERALIZATION PRESCRIPTIONS APPOINTMENTS LAB REVIEW: 01/11/18 05:00 01/11/18 05:00 01/11/18 05:00: Sodium 138, Potassium 4.0, Chloride 106, Carbon Dioxide 24, Anion Gap 12.0, BUN 26 H, Creatinine 0.75, Estimated GFR (MDRD) 76.00, BUN/ Creatinine Ratio 34.66, Glucose 150 H, Calcium 8.8, Total Bilirubin 0.7, AST 12 L, ALT 20, Alkaline Phosphatase 88, Total Protein 6.2, Albumin 3.1 L, Globulin 3.1, Albumin/Globulin Ratio 1.00 01/11/18 05:00: WBC 14.60 H, RBC 3.98 L, Hgb 12.6, Hct 36.2 L, MCV 91.0, MCH 31.7 H, MCHC 34.8, RDW Coeff of [place] 12.4, Plt Count 285, Immature Gran % (Auto) 2.0, Neut % (Auto) 67.2, Lymph % (Auto) 20.1, [place] % (Auto) 10.0, Eos % (Auto) 0.3, Baso % (Auto) 0.4, Immature Gran # (Auto) 0.3, Neut # (Auto) 9.8 H, Lymph # (Auto) 2.9, [place] # (Auto) 1.5, Eos # (Auto) 0.0, Baso # (Auto) 0.1 PLAN: DISCHARGE HOME DIET: REGULAR TOLERATED ACTIVITY: RESUME TOLERATED AVOID OUTDOOR ACTIVITY IN EXTREME HEAT AND HUMIDITY FOLLOW UP WITH [facility] SCHEDULED USE ALBUTEROL NEB TREATMENT FOUR TIMES A DAY APPOINTMENT WITH DR. DIAZ ON JANUARY 16, 2018 AT 11:45 AM AN APPOINTMENT IS SCHEDULED AT [facility] ON December AT 8:30 FOR ARTERIAL STUDIES OF BOTH LOWER EXTREMITIES DNI, CPR ONLY MS. LUNA IS ALERT AND ORIENTED X 3. SHE IS INDEPENDENT WITH ACTIVITIES OF DAILY LIVING. SHE IS AMBULATORY WITHOUT STAFF ASSISTANCE OR USE OF ASSISTIVE DEVICE. SHE DOES NOT REQUIRE HOME OXYGEN. A NEBULIZER HAS BEEN ORDERED FOR THE PATIENT THRU [facility] IN [place] FOR HER USE WITH QID ALBUTEROL NEBULIZER TREATMENTS. MS LUNA HAS BEEN ENCOURAGED TO STOP SMOKING. MEAL INTAKES HAVE BEEN GOOD DURING HER HOSPITALIZATION AT 50-100%. SKIN IS INTACT AND FREE OF DECUBITUS ULCERS OR SKIN BREAKDOWN. SHIRA DIAZ MD
[2018-01-11] MEDS: NORCO 7.5-325 PO PRN (11:58)
[2018-01-11 13:44] VITALS: BP 150/88
--- NOTE | 2018-01-11 14:11 | PN ---
DATE OF SERVICE: 01/08/18 ADMIT NOTE SUBJECTIVE: 72 year old white female was seen in room 106. She was admitted through the emergency room. The patient's main complaint of cough, congestion, shortness of breath. She was seen in the emergency room days ago and was sent home. Reported chills, wheezing, nasal congestion, fatigue and tired feeling. REVIEW OF SYSTEMS: CONSTITUTIONAL: No night sweats. No fatigue, malaise, lethargy. No fever or chills. HEENT: Eyes: No visual changes. No eye pain. No eye discharge. ENT: No runny nose. No epistaxis. No sinus pain. No sore throat. No odynophagia. No congestion. RESPIRATORY: No cough, no congestion. No hemoptysis. No shortness of breath. CARDIOVASCULAR: No angina symptoms. No CHF symptoms. No atypical chest pain for CAD. No palpitations. No orthopnea. GASTROINTESTINAL: No abdominal pain. No nausea or vomiting. No diarrhea or constipation. No hematemesis. No hematochezia. GENITOURINARY: No urgency. No frequency. No dysuria. No hematuria. No obstructive symptoms. No discharge. No pain. No significant abnormal bleeding. MUSCULOSKELETAL: No musculoskeletal pain; no joint swelling. NEUROLOGICAL: No headache. No neck pain. No syncope. No seizures. No dizziness. PSYCHIATRIC: Not anxious. No depression. No suicidal thoughts. No homicidal thoughts. SKIN: No rash. No lesions. No wounds. ENDOCRINE: No unexplained weight loss. No weight gain. HEMATOLOGIC/LYMPHATIC: No anemia. No purpura. No petechiae. No prolonged or excessive bleeding. No palpable lymph nodes. PHYSICAL EXAMINATION: VITAL SIGNS: Temperature 98, pulse 84, respiratory rate 16, blood pressure 135/ 72 and pulse ox 97%, that was in the hospital. HEENT: Head normocephalic, atraumatic. Eyes: Extraocular muscles are intact. Pupils are equal, round and reactive to light and accommodation. Ears: No lesions. Nose appeared normal. Throat: No exudate or erythema. NECK: Supple. No JVD, no carotid bruit. No lymphadenopathy or thyromegaly. LUNGS:Decreased breath sounds with mild wheeze, expiratory. Clear to auscultation. Percussion note normal. Chest symmetrical. HEART: S1, S2, no S3. No murmurs. No cyanosis or clubbing. No ascites. Pulses: Dorsalis pedis and posterior tibial pulses +1. ABDOMEN: Soft. Nontender. Bowel sounds active. No CVA tenderness. No mass felt. EXTREMITIES: No edema. Full range of motion of all extremities, equal. NEUROLOGIC: No focal deficit. Cranial nerves II through XII are grossly intact. No headache, no double vision or headache. SKIN: Not dry. Intact. Turgor - normal. LYMPHATIC: No palpable lymph nodes/no lymphedema. MUSCULOSKELETAL: Normal joints with no swelling. Muscle tone is normal. LABS: Sodium 128, lactic acid 17.3 which was somewhat elevated, creatinine 0.7 with bun 10, Troponin and CK was negative. Atrial blood gasses pO2 80, pCO2 30, pH 7.49 with 97% saturation on room air. Chest x-ray was negative except for emphysema and arthrosclerosis. In fact she had a CT of the chest done which showed arthrosclerosis and no significant coronary calcification was noted. ASSESSMENT: 1. Acute bronchitis 2. Severe chronic lung disease 3. Obesity with BMI more than 35 4. Dyslipidemia 5. Hypertension 6. Severe DJD of the spine PLAN: 1. Given the patient Toradol 30mg Q 8 hours 2. [place] 7.5-325mg Q three times a day 3. IV steroids 4. IV antibiotics 5. Daily CBC and CMP CONDITION: Stable TIME SPENT: More than 30 minutes. Plan and coordination of the patient's care discussed in the presence of nurse. MTDD
[2018-01-11] MEDS ORDERED: REMERON PO SCH (21:00)
--- NOTE | 2018-01-12 08:16 | ECHO2D ---
Date of Exam: 01/11/18 Ordering Physician: DR. SHIRA DIAZ Room #: 106 Reason for Echo: SOA, HYPERTENSION M-Mode Normal Adult Results LV Dimensions Normal Adult Results AoV Opening excursions >1.6 >1.6 LVEDD-base- 3.5-5.8 4.3 Ao root dimensions 2.0-3.7 3.7 LVESD-base- 3.1-4.6 L. Atrium dimensions 1.9-3.8 3.7 Post. Wall thickness 0.8-1.1 1.3 IV septum (thickness) 0.7-1.2 1.3 Post. Wall excursion 0.72-1.3 NORMAL Septal motion NORMAL Systolic motion R. Ventricular cavity 1.5-2.0 NORMAL LVEF 60% 65% Paradoxical septal wall motion NORMAL 2-D : 2-D M Mode Echocardiogram was performed using apical four chamber and left parasternal long and short axis views. Mitral, tricuspid and aortic valves appear to be normal. Contractility of the left ventricle seems to be normal, so is the cavity size. Left atrial cavity size and aortic root appear to be normal. There is no pericardial effusion. There is no thrombus noted in the left ventricular or left aortic cavity. No mitral valve prolapse noted. M-MODE: MV: NORMAL AV: NORMAL TV: NORMAL PV: CHAMBER SIZE: NORMAL WALL MOTION: NORMAL PERICARDIUM: NORMAL INTERPRETATION: 1. LEFT VENTRICULAR HYPERTROPHY 2. NORMAL VALVES 3. NORMAL LEFT VENTRICULAR CONTRACTILITY MTDD
--- NOTE | 2018-01-12 09:21 | PN ---
DATE OF SERVICE: 01/09/18 SUBJECTIVE: The patient was seen and examined by me this morning with nurse practitioner. PHYSICAL EXAMINATION: HEENT: Head normocephalic, atraumatic. Eyes: Extraocular muscles are intact. Pupils are equal, round and reactive to light and accommodation. Ears: No lesions. Nose appeared normal. Throat: No exudate or erythema. NECK: Supple. No JVD, no carotid bruit. No lymphadenopathy or thyromegaly. LUNGS: Decreased breath sounds with mild wheeze. Percussion note normal. Chest symmetrical. HEART: S1, S2, no S3. No murmurs. No cyanosis or clubbing. No ascites. Pulses: Dorsalis pedis and posterior tibial pulses +1 to +2 both sides. ABDOMEN: Soft. Nontender. Bowel sounds active. No CVA tenderness. No mass felt. EXTREMITIES: No edema. Full range of motion of all extremities, equal. NEUROLOGIC: No focal deficit. Cranial nerves II through XII are grossly intact. No headache, no double vision or headache. SKIN: Not dry. Intact. Turgor - normal. LYMPHATIC: No palpable lymph nodes/no lymphedema. MUSCULOSKELETAL: Normal joints with no swelling. Muscle tone is normal. ASSESSMENT: 1. The patient's condition is improving. Back pain is somewhat better. Still has back pain. PLAN: 1. Continue steroids, antibiotics. 2. Counseling for smoking done. TIME SPENT: More than 30 minutes. Plan and coordination of the patient's care discussed in the presence of nurse. SUSAN
--- NOTE | 2018-01-12 11:39 | DS ---
DATE OF SERVICE: 01/11/18 FINAL DIAGNOSIS: 1. COPD 2. ACUTE BRONCHITIS 3. HYPERTENSION 4. HYPONATREMIA 5. DYSLIPIDEMIA 6. OSTEOARTHRITIS 7. ADVANCED DEGENERATIVE CHANGES LOWER THORACIC SPINE 8. TOBACCO USE 9. DEPRESSION FOLLOWED BY [facility] 10. CHOLECYSTECTOMY 11. PARTIAL HYSTERECTOMY 12. BILATERAL CATARACT EXTRACTION DISCHARGE INSTRUCTIONS: Followup appointment is scheduled with Dr. Lacy on 01/16/18 at 11:45 a.m. An appointment is scheduled at [facility] on 01/19/18 at 0830 for arterial studies of both lower extremities. Followup with [facility] as scheduled. MEDICATIONS AT DISCHARGE: Albuterol neb RT q.i.d. NAMAN Norvasc 5 mg p.o. daily NAMAN Aspirin 162 mg p.o. daily with meal NAMAN Mevacor 40 mg p.o. daily [place] 3 Fatty Acids/Fish Oil one cap daily Cholecalciferol (Vitamin D3) 1000 units p.o. daily Lorazepam (Ativan) 0.5 mg p.o. t.i.d. p.r.n. Losartan/Hydrochlorothiazide 100-12.5 mg p.o. daily NAMAN Mevacor 40 mg p.o. daily NAMAN Remeron 30 mg p.o. bedtime NAMAN Prednisone 10 mg p.o. b.i.d. with meal [facility] NEW PRESCRIPTIONS: Hyzaar 100-12.5 mg daily (discontinued) Prednisone 10 mg b.i.d. for 5 days Keflex 500 mg b.i.d. for 5 days Albuterol 0.083% for nebulizer Amlodipine 5 mg daily DISCONTINUED MEDICATIONS: Hyaar 100 mg DIET INSTRUCTIONS: Regular as tolerated ACTIVITY: Resume as tolerated. Avoid outdoor activity in extreme heat and humidity. SMOKING: Advised to stop smoking DISEASE SPECIFIC EDUCATION: Smoking cessation Weight loss advised to redue BMI Use of steroids and risk of GI irritation, bone demineralization Prescriptions Appointments HOSPITAL COURSE: 72-year-old white female hospitalized with shortness of air, COPD, acute bronchitis. The patient had IV antibiotic Rocephin with steroids, nebs treatment and oxygen. The patient's condition improved. She is a heavy smoker. She is advised to quit smoking. Counseling for smoking was done. Side effects of steroids discussed, like avascular necrosis of the femur, femoral heads, cataracts, osteoporosis. She was discharged on Keflex and Prednisone. The patient's other problems are anxiety. She has a lot of stress related to family problems. She is being followed by Abraham Guevara, with psychiatrist. The patient was advised continued followup with it. The patient felt a lot better during the stay in the hospital. She was discharged in stable condition to follow as an outpatient. She had an echocardiogram done which showed normal LV contractility, LVH. Prognosis is guarded unless the patient changes her lifestyle. SPECIFIC ORDERS: 1. Use Albuterol neb treatment four times a day. 2. DNI, CPR only TIME SPENT: More than 60 minutes. SUSAN
--- NOTE | 2018-01-12 11:40 | PN ---
CODING FOR BILLING 01/08/18 LEVEL 5 01/09/18 INTERMEDIATE 01/10/18 INTERMEDIATE 01/11/18 DISCHARGE MTDD
== END 2018-01-11 14:02 | disposition home or self-care (01) | DRG 202 ==
LOC: ED 11:31 → MEDSURG B 13:32 → MEDSURG A 13:33
PROVIDERS: ADMIT Internal Medicine; ATTEND Internal Medicine
DX: J20.9 Acute bronchitis, unspecified (principal); E87.1 Hypo-osmolality and hyponatremia; R06.02 Shortness of breath; E78.5 Hyperlipidemia, unspecified; I10 Essential (primary) hypertension; F41.8 Other specified anxiety disorders; M15.9 Polyosteoarthritis, unspecified; E66.9 Obesity, unspecified; F17.200 Nicotine dependence, unspecified, uncomplicated; Z68.35 Body mass index [BMI] 35.0-35.9, adult
CPT/HCPCS: 36415; 80053; 82550; 82803; 83605; 84443; 84484; 85025; 87040; 93005; 93010; 94640; 96365; 96375; 99284

== ENCOUNTER 2018-01-31 13:00 | Outpatient (RCR) | END 2018-02-21 23:59 | LOC: NEWBEG 13:00 | PROVIDERS: ATTEND Psychiatry & Neurology Psychiatry | DX: F32.1 Major depressive disorder, single episode, moderate (principal); F41.9 Anxiety disorder, unspecified | CPT/HCPCS: 90834 ==

== ENCOUNTER 2018-02-03 14:22 | Emergency (ER) ==
[2018-02-03 14:13] VITALS: BP 159/93; TEMP 97.1; BMI 36.3
--- NOTE | 2018-02-03 14:19 | ED.PDOC ---
General ED Provider: Dr. JENELLE BOWLES MD Chief Complaint: Shortness of Air Stated Complaint: SOB, weakness Time Seen by Physician: 14:10 Mode of Arrival: Walk-In Information Source: Patient, EMT Exam Limitations: No limitations Primary Care Provider: SHIRA DIAZ Nursing and Triage Documentation Reviewed and Agree: Yes Does patient meet sepsis criteria?: No System Inflammatory Response Syndrome: Not Applicable Sepsis Protocol: For patient's 13 years and over: Temp is 96.8 and below OR 101 and greater Pulse >90 BPM Resp >20/minute Acutely Altered Mental Status Are patient's symptoms suggestive of a new infection, such as: -Pneumonia -Skin, Soft Tissue -Endocarditis -UTI -Bone, Joint Infection -Implantable Device -Acute Abdominal Infection -Wound Infection -Meningitis -Blood Stream Catheter Infection -Unknown Respiratory Complaint Exam - Shortness of Air Complaint/Exam Onset/Duration: hours Symptoms Are: Still present Timing: Constant Initial Severity: Mild Current Severity: Moderate Aggravating: Reports: None Alleviating: Reports: None Cardiac Risk Factors: Reports: Smoking, Hypertension Tuberculosis Risk Factors: Reports: None Home Oxygen Use: No Recent Stress Test: No Recent Echo/LV Function: No Respiratory Distress: None Stridor Present: No Tracheal Deviation: No Accessory Muscle Use: No Retractions: Not Present Diminished Breath Sounds: No Review of Systems - Review Of Systems Constitutional: Reports: Malaise, Weakness Eyes: Reports: No symptoms Ears, Nose, Mouth, Throat: Reports: No symptoms Respiratory: Reports: No symptoms Cardiac: Reports: No symptoms GI: Reports: No symptoms : Reports: No symptoms Musculoskeletal: Reports: No symptoms Skin: Reports: No symptoms Neurological: Reports: No symptoms Endocrine: Reports: No symptoms Hematologic/Lymphatic: Reports: No symptoms All Other Systems: Reviewed and Negative Past Medical History - Past Medical History Previously Healthy: No Endocrine: Reports: Dyslipidemia Cardiovascular: Reports: Hypertension Respiratory: Reports: COPD Hematological: Reports: None Gastrointestinal: Reports: None Genitourinary: Reports: None Neuro/Psych: Reports: None Musculoskeletal: Reports: None Cancer: Reports: None Last Menstrual Period: 20 years ago - Surgical History General Surgical History: Reports: None - Family History Family History: Reports: None - Social History Smoking Status: Current every day smoker Hx Substance Use: No Alcohol Screening: None Physical Exam - Physical Exam Appearance: Obese Ill-appearing: Mild Pain Distress: None Eyes: GUIDO, EOMI, Conjunctiva clear ENT: Ears normal, Nose normal, Oropharynx normal Respiratory: Airway patent, Breath sounds clear, Breath sounds equal, Respirations nonlabored Cardiovascular: RRR, Pulses normal, No rub, No murmur GI/: Soft, Nontender, No masses, Bowel sounds normal, No Organomegaly Musculoskeletal: Normal strength, ROM intact, No edema, No calf tenderness Skin: Warm, Dry, Normal color Neurological: Sensation intact, Motor intact, Reflexes intact, Cranial nerves intact, Alert, Oriented Psychiatric: Affect appropriate, Mood appropriate Critical Care Note - Critical Care Note Total Time (mins): 0 Course - Course Hematology/Chemistry: 02/03/18 14:25 02/03/18 14:25 Orders, Labs, Meds: Lab Review 02/03/18 02/03/18 02/03/18 14:25 14:25 15:25 WBC 4.92 RBC 4.29 Hgb 13.5 Hct 38.7 MCV 90.2 MCH 31.5 H MCHC 34.9 RDW Coeff of [place] 12.1 Plt Count 248 Immature Gran % (Auto) 0.8 Neut % (Auto) 46.4 Lymph % (Auto) 39.2 [place] % (Auto) 8.9 Eos % (Auto) 4.1 Baso % (Auto) 0.6 Immature Gran # (Auto) 0.0 Neut # (Auto) 2.3 Lymph # (Auto) 1.9 [place] # (Auto) 0.4 Eos # (Auto) 0.2 Baso # (Auto) 0.0 Sodium 132 L Potassium 3.8 Chloride 96 L Carbon Dioxide 27 Anion Gap 12.8 BUN 15 Creatinine 1.04 Estimated GFR (MDRD) 52.00 BUN/Creatinine Ratio 14.42 Glucose 94 Calcium 9.7 Total Bilirubin 1.0 AST 16 ALT 17 Alkaline Phosphatase 104 Total Protein 7.5 Albumin 3.9 Globulin 3.6 Albumin/Globulin Ratio 1.08 Urine Color Yellow Urine Clarity Clear Urine pH 7.0 Ur Specific [place] 1.015 Urine Protein Negative Urine Glucose (UA) Negative Urine Ketones Negative Urine Blood Negative Urine Nitrite Negative Urine Bilirubin Negative Urine Urobilinogen 0.2 Ur Leukocyte Esterase Negative Orders Category Date Time Status EKG-(ED ONLY) Stat CARDIO 02/03/18 14:26 Completed CBC W/ AUTO DIFF Stat LAB 02/03/18 14:25 Completed COMPREHENSIVE METABOLIC PANEL Stat LAB 02/03/18 14:25 Completed UA [URINALYSIS C & S IF INDICATED] Stat LAB 02/03/18 15:25 Completed Methylprednisolone Sod Succ/Pf [Solu-Medrol 125 mg] MEDS 02/03/18 15:31 Discontinued 125 mg IVP ONCE STA Sodium Chloride 0.9% [Sodium Chloride] 1,000 ml MEDS 02/03/18 14:11 Discontinued IV BOLUS CXR [CHEST, 1V AP ONLY] Stat RADS 02/03/18 14:10 Completed Medications Discontinued Medications Generic Name Dose Route Start Last Admin Trade Name Freq PRN Reason Stop Dose Admin Sodium Chloride 1,000 mls @ 1,000 mls/hr 02/03/18 14:11 02/03/18 14:33 Sodium Chloride IV 02/03/18 15:10 1,000 mls/hr BOLUS STA Administration Methylprednisolone Sodium Succinate 125 mg 02/03/18 15:31 Solu-Medrol 125 Mg IVP 02/03/18 15:32 ONCE STA Vital Signs: Temp Pulse Resp BP Pulse Ox 02/03/18 14:06 97.1 F L 74 16 159/93 H 96 Departure - Departure Time of Disposition: 15:45 Disposition: HOME SELF-CARE Discharge Problem: Weakness generalized COPD (chronic obstructive pulmonary disease) Qualifiers: Chronic bronchitis type: simple Condition: Good Pt referred to PMD for follow-up: Yes IPMP verified?: No Allergies/Adverse Reactions: Allergies simvastatin [From Zocor] Allergy (Mild, Verified 01/08/18 11:38) Rash atorvastatin [From Lipitor] Adverse Reaction (Mild, Verified 01/08/18 11:38) muscle pain rosuvastatin [From Crestor] Adverse Reaction (Mild, Verified 01/08/18 11:38) muscle pain Home Medications: Ambulatory Orders Aspirin [Aspirin Chewable] 2 tab PO DAILYWM 08/30/13 Lovastatin [Mevacor] 40 mg PO DAILY 08/30/13 Lorazepam [Ativan] 0.5 mg PO TID PRN 10/26/17 Mirtazapine [Remeron] 30 mg PO BEDTIME 10/26/17 Cholecalciferol (Vitamin D3) [Vitamin D3] 1,000 unit PO DAILY 01/06/18 [place]-3 Fatty Acids/Fish Oil [Fish Oil 1,000 mg Capsule] 1 each PO DAILY Albuterol Sulfate 0.083% Neb [Albuterol 0.083% Neb] 1 vial NEB QID #120 vial.neb 01/11/18 Amlodipine Besylate [Norvasc] 5 mg PO DAILY #30 tablet 01/11/18 Cephalexin [Keflex] 500 mg PO BID #10 capsule 01/11/18 Losartan/Hydrochlorothiazide [Hyzaar 100-12.5 Tablet] 1 each PO DAILY #30 tablet 01/11/18 Prednisone 10 mg PO BIDWM #10 tablet 01/11/18
[~2018-02-03 14:22] MED LIST: SODIUM CHLORIDE 1,000 ML IV STA
--- NOTE | 2018-02-03 14:42 | DI ---
EXAM: Chest one view, frontal view only. HISTORY: Shortness of breath. COMPARISON: 01/08/2018, 01/06/2018. FINDINGS: The heart size is normal. There is no pulmonary vascular congestion. The lungs are clear . No pleural effusion or pneumothorax is seen. No acute osseous abnormality is identified. Since t he prior study, there has been no significant interval change. IMPRESSION: No acute cardiopulmonary process.
[2018-02-03] MEDS ORDERED: SOLU-MEDROL 125 MG IVP STA (15:31)
== END 2018-02-03 16:40 | disposition home or self-care (01) ==
LOC: ED 14:22
DX: J44.9 Chronic obstructive pulmonary disease, unspecified (principal); R53.1 Weakness; R06.02 Shortness of breath; I10 Essential (primary) hypertension; R42 Dizziness and giddiness; E78.5 Hyperlipidemia, unspecified; F17.210 Nicotine dependence, cigarettes, uncomplicated; Z79.899 Other long term (current) drug therapy; M25.511 Pain in right shoulder
CPT/HCPCS: 36415; 80053; 81001; 85025; 93005; 93010; 96361; 96374; 99283

== ENCOUNTER 2018-02-05 20:38 | Inpatient (IN) | payer OTHER ==
[2018-02-05] MEDS ORDERED: ATIVAN IVP STA (20:55)
[2018-02-05] MEDS ORDERED: DUONEB NEB STA (20:55)
--- NOTE | 2018-02-05 22:11 | ED.PDOC ---
General ED Provider: Dr. JENELLE AVILA-ER Chief Complaint: Shortness of Air Stated Complaint: im sob Time Seen by Physician: 20:40 Mode of Arrival: Walk-In Information Source: Patient, Family Exam Limitations: No limitations Primary Care Provider: SHIRA TESFAYE Nursing and Triage Documentation Reviewed and Agree: Yes Does patient meet sepsis criteria?: No System Inflammatory Response Syndrome: Not Applicable Sepsis Protocol: For patient's 13 years and over: Temp is 96.8 and below OR 101 and greater Pulse >90 BPM Resp >20/minute Acutely Altered Mental Status Are patient's symptoms suggestive of a new infection, such as: -Pneumonia -Skin, Soft Tissue -Endocarditis -UTI -Bone, Joint Infection -Implantable Device -Acute Abdominal Infection -Wound Infection -Meningitis -Blood Stream Catheter Infection -Unknown Respiratory Complaint Exam - Shortness of Air Complaint/Exam Onset/Duration: 2 days Symptoms Are: Still present Timing: Constant Initial Severity: Mild Current Severity: Moderate Character: Reports: Dyspnea at rest, Dyspnea on exertion Aggravating: Reports: None Alleviating: Reports: Bronchodilators Associated Signs and Symptoms: Denies: Cough, Wheezing, Chest pain with cough, Chest pain, Fever, Chills, Diaphoresis, Nasal congestion, Dizziness, Calf pain, Calf swelling, Edema, Rapid breathing, Labored breathing, Decreased intake Related History: Reports: Similar episode Pseudomonas Risk Factors: Reports: Chronic Lung Disease Home Oxygen Use: No Recent Stress Test: No Recent Echo/LV Function: No Respiratory Distress: Mild Stridor Present: No Tracheal Deviation: No Subcutaneous Emphysema: No Accessory Muscle Use: No Diminished Breath Sounds: No Prolonged Expiratory Phase: No Unable to Speak Full Sentences: No Fatigue: No Leg Swelling: No Katy's Sign Present: No Grunting Respirations: No Kussmaul Respirations: No Differential Diagnoses: Asthma, COPD Exacerbation Quality Indicator For Non-Traumatic Chest Pain/Syncope: EKG Performed Review of Systems - Review Of Systems Constitutional: Reports: No symptoms Eyes: Reports: No symptoms Ears, Nose, Mouth, Throat: Reports: No symptoms Respiratory: Reports: Cough, Short of air Cardiac: Reports: No symptoms GI: Reports: No symptoms : Reports: No symptoms Musculoskeletal: Reports: No symptoms Skin: Reports: No symptoms Neurological: Reports: No symptoms Endocrine: Reports: No symptoms Hematologic/Lymphatic: Reports: No symptoms All Other Systems: Reviewed and Negative Past Medical History - Past Medical History Previously Healthy: No Endocrine: Reports: Dyslipidemia Cardiovascular: Reports: Hypertension Respiratory: Reports: COPD Hematological: Reports: None Gastrointestinal: Reports: None Genitourinary: Reports: None Neuro/Psych: Reports: None Musculoskeletal: Reports: None Cancer: Reports: None Last Menstrual Period: na - Surgical History General Surgical History: Reports: None - Family History Family History: Reports: None - Social History Smoking Status: Current every day smoker Hx Substance Use: No Alcohol Screening: None - Immunizations Tetanus Shot up to Date: Yes Physical Exam - Physical Exam Appearance: Well-appearing, No pain distress, Well-nourished Eyes: GUIDO, EOMI, Conjunctiva clear ENT: Ears normal, Nose normal, Oropharynx normal Neck: Supple Respiratory: Breath sounds diminished, Respirations nonlabored Cardiovascular: RRR, Pulses normal, No rub, No murmur GI/: Soft, Nontender, No masses, Bowel sounds normal, No Organomegaly Musculoskeletal: Normal strength, ROM intact, No edema, No calf tenderness Skin: Warm, Dry, Normal color Neurological: Sensation intact Psychiatric: Affect appropriate, Mood appropriate, Anxious Interpretation - Radiology Interpretation Radiology Interpretation By: Radiologist Radiology Results: Negative Exam Interpreted: CT Scan Re-Evaluation - Re-Evaluation Time of Re-Evaluation: 22:21 Status: Improved Vital Signs Stable: Yes Pain Level: 0 Appearance: NAD Lungs: Clear Skin: Warm and Dry Neuro: Alert and Oriented X3 CV: RRR Physician Notification - Case Discussed Physician Notified: dr [email or web address] Time of Notification: 22:21 Critical Care Note - Critical Care Note Total Time (mins): 0 Course - Course Hematology/Chemistry: 02/05/18 20:05 02/05/18 20:05 Orders, Labs, Meds: Lab Review 02/05/18 02/05/18 02/05/18 20:05 20:05 20:05 WBC 9.23 RBC 4.43 Hgb 13.6 Hct 38.9 MCV 87.8 MCH 30.7 MCHC 35.0 RDW Coeff of [place] 11.9 Plt Count 284 Immature Gran % (Auto) 0.5 Neut % (Auto) 54.2 Lymph % (Auto) 36.5 [place] % (Auto) 6.6 Eos % (Auto) 1.5 Baso % (Auto) 0.7 Immature Gran # (Auto) 0.1 Neut # (Auto) 5.0 Lymph # (Auto) 3.4 [place] # (Auto) 0.6 Eos # (Auto) 0.1 Baso # (Auto) 0.1 Puncture Site O2 Saturation ABG pH ABG pCO2 ABG pO2 ABG HCO3 ABG Total CO2 ABG Base Excess [place] Test FiO2 % Sodium 133 L Potassium 3.6 Chloride 100 Carbon Dioxide 23 Anion Gap 13.6 BUN 14 Creatinine 0.88 Estimated GFR (MDRD) 63.00 BUN/Creatinine Ratio 15.90 Glucose 140 H Calcium 9.7 Total Bilirubin 1.0 AST 17 ALT 17 Alkaline Phosphatase 92 Total Creatine Kinase 50 Troponin I < 0.0100 B-Natriuretic Peptide Total Protein 7.2 Albumin 3.8 Globulin 3.4 Albumin/Globulin Ratio 1.12 02/05/18 02/05/18 20:05 20:54 WBC RBC Hgb Hct MCV MCH MCHC RDW Coeff of [place] Plt Count Immature Gran % (Auto) Neut % (Auto) Lymph % (Auto) [place] % (Auto) Eos % (Auto) Baso % (Auto) Immature Gran # (Auto) Neut # (Auto) Lymph # (Auto) [place] # (Auto) Eos # (Auto) Baso # (Auto) Puncture Site Lb O2 Saturation 93.0 L ABG pH 7.423 ABG pCO2 38.5 ABG pO2 65.0 L ABG HCO3 25.2 ABG Total CO2 26 ABG Base Excess 1 Nem[place]io Test + FiO2 % 21.0 Sodium Potassium Chloride Carbon Dioxide Anion Gap BUN Creatinine Estimated GFR (MDRD) BUN/Creatinine Ratio Glucose Calcium Total Bilirubin AST ALT Alkaline Phosphatase Total Creatine Kinase Troponin I B-Natriuretic Peptide 52 Total Protein Albumin Globulin Albumin/Globulin Ratio Orders Category Date Time Status ABG DRAW REQUEST Stat CARDIO 02/05/18 20:54 Completed EKG-(ED ONLY) Stat CARDIO 02/05/18 20:54 Completed NEBULIZER TREATMENT Stat CARDIO 02/05/18 20:55 Completed NPO REMINDER: IMAGING ONCE CARE 02/05/18 20:56 Active IV [ED IV/MEDIPORT/POWERPORT] .ONCE EMERGENCY 02/05/18 20:54 Active ABG Stat LAB 02/05/18 20:54 Completed BNP [B-TYPE NATRIURETIC PEPTIDE] Stat LAB 02/05/18 20:05 Completed CBC W/ AUTO DIFF Stat LAB 02/05/18 20:05 Completed COMPREHENSIVE METABOLIC PANEL Stat LAB 02/05/18 20:05 Completed CREATINE KINASE Stat LAB 02/05/18 20:05 Completed TROPONIN I Stat LAB 02/05/18 20:05 Completed 0.9 % Sodium Chloride [Saline Flush] MEDS 02/05/18 20:54 Ordered 1 syr IVF PRN PRN Ipratropium/Albuterol Neb [Duoneb] MEDS 02/05/18 20:55 Discontinued 1 vial NEB ONCE STA Lorazepam [Ativan] MEDS 02/05/18 20:55 Discontinued 1 mg IVP ONCE STA CT CHEST PE PROTOCOL Stat RADS 02/05/18 20:55 Completed Medications Generic Name Dose Route Start Last Admin Trade Name Freq PRN Reason Stop Dose Admin Sodium Chloride 1 syr 02/05/18 20:54 02/05/18 21:32 Saline Flush IVF 1 syr PRN PRN Administration To flush IV Discontinued Medications Generic Name Dose Route Start Last Admin Trade Name Freq PRN Reason Stop Dose Admin Albuterol/Ipratropium 1 vial 02/05/18 20:55 02/05/18 21:36 Duoneb NEB 02/05/18 20:56 1 vial ONCE STA Administration Lorazepam 1 mg 02/05/18 20:55 02/05/18 21:30 Ativan IVP 02/05/18 20:56 1 mg ONCE STA Administration Vital Signs: Temp Pulse Resp BP Pulse Ox 02/05/18 20:39 97.7 F 92 H 18 148/89 H 94 L Departure - Departure Time of Disposition: 22:21 Disposition: ADMITTED INPATIENT Discharge Problem: COPD exacerbation Acute respiratory failure Qualifiers: Respiratory failure complication: hypoxia Qualified Code(s): J96.01 - Acute respiratory failure with hypoxia Instructions: COPD (Chronic Obstructive Pulmonary Disease) (ED) Condition: Fair Pt referred to PMD for follow-up: Yes IPMP verified?: No Allergies/Adverse Reactions: Allergies simvastatin [From Zocor] Allergy (Mild, Verified 02/05/18 20:50) Rash atorvastatin [From Lipitor] Adverse Reaction (Mild, Verified 02/05/18 20:50) muscle pain rosuvastatin [From Crestor] Adverse Reaction (Mild, Verified 02/05/18 20:50) muscle pain Home Medications: Ambulatory Orders Aspirin [Aspirin Chewable] 2 tab PO DAILYWM 08/30/13 Lovastatin [Mevacor] 40 mg PO DAILY 08/30/13 Lorazepam [Ativan] 0.5 mg PO TID PRN 10/26/17 Mirtazapine [Remeron] 30 mg PO BEDTIME 10/26/17 Cholecalciferol (Vitamin D3) [Vitamin D3] 1,000 unit PO DAILY 01/06/18 [place]-3 Fatty Acids/Fish Oil [Fish Oil 1,000 mg Capsule] 1 each PO DAILY Albuterol Sulfate 0.083% Neb [Albuterol 0.083% Neb] 1 vial NEB QID #120 vial.neb 01/11/18 Amlodipine Besylate [Norvasc] 5 mg PO DAILY #30 tablet 01/11/18 Losartan/Hydrochlorothiazide [Hyzaar 100-12.5 Tablet] 1 each PO DAILY #30 tablet 01/11/18 Disposition Discussed With: Patient, Family
--- NOTE | 2018-02-05 22:17 | CT ---
Exam: CT angiography of the chest History: Dyspnea Technique: [address] of the chest utilizing CT angiography protocol. Multiplanar and max imum intensity projection reformations were performed. FINDINGS: Technically adequate for evaluation of pulmonary arteries and aorta. There are no pulmona ry artery filling defect. Atherosclerotic calcification of the aorta without aneurysm or dissection. No pathologic lymph node enlargement or abundance. No acute findings of the chest wall soft tissue s or bony thorax. No acute findings of the upper abdomen. Endplate degenerative change of the spine . Impression: 1. No evidence of pulmonary artery thrombus 2. No acute findings of the chest
[2018-02-05] MEDS ORDERED: SOLU-MEDROL 40 MG IVP SCH (22:30)
[2018-02-05] MEDS ORDERED: LOVENOX SUBCUT SCH (22:30)
[2018-02-05 23:13] VITALS: BMI 34.9
[2018-02-05] MEDS: SODIUM CHLORIDE 1,000 ML IV SCH (23:29)
[2018-02-06] MEDS ORDERED: DUONEB NEB SCH
[2018-02-06] MEDS: NORCO 10-325 PO SCH ×5 (00:03→21:03)
[2018-02-06] MEDS: DUONEB NEB SCH ×4 (04:54→20:15)
[2018-02-06] MEDS: ASPIRIN CHEWABLE PO SCH (08:12)
[2018-02-06] MEDS: HYDROCHLOROTHIAZIDE PO SCH (08:14)
[2018-02-06] MEDS: COZAAR PO SCH (08:15)
[2018-02-06] MEDS: VITAMIN D PO SCH (08:15)
[2018-02-06] MEDS: NORVASC PO SCH (08:15)
[2018-02-06] MEDS: MEVACOR PO SCH (08:15)
[2018-02-06] MEDS: ROCEPHIN 1 GM in SODIUM CHLORIDE 50 ML IV SCH (08:23)
--- NOTE | 2018-02-06 08:55 | PCM.PROG ---
Attending Provider: ATTENDING PROVIDER: Dr. SHIRA DIAZ This patient is seen with Lelo Norman, Nurse Practitioner. DATE OF SERVICE: 02/06/18 SUBJECTIVE: This 72 year old WHITE/ F was hospitalized 02/05/18. The patient is lying in bed resting comfortably. She hasn't been eating very well. She is weak. REVIEW OF SYSTEMS: CONSTITUTIONAL: Weakness. No night sweats. No malaise, lethargy. No fever or chills. HEENT: Eyes: No visual changes. No eye pain. No eye discharge. ENT: No runny nose. No epistaxis. No sinus pain. No odynophagia. No congestion. RESPIRATORY: No cough, no congestion. No hemoptysis. Shortness of breath. CARDIOVASCULAR: No angina symptoms. No CHF symptoms. No atypical chest pain for CAD. No palpitations. No orthopnea.. GASTROINTESTINAL: No abdominal pain. No nausea or vomiting. No diarrhea or constipation. No hematemesis. No hematochezia. GENITOURINARY: No urgency. No frequency. No dysuria. No hematuria. No obstructive symptoms. No discharge. No pain. No significant abnormal bleeding. MUSCULOSKELETAL: No musculoskeletal pain; no joint swelling. NEUROLOGICAL: Awake, alert, oriented to time, place and person. No headache. No neck pain. No syncope. No seizures. No dizziness. PSYCHIATRIC: Not anxious. No depression. No suicidal thoughts. No homicidal thoughts. SKIN: No rash. No lesions. No wounds. ENDOCRINE: No unexplained weight loss. No weight gain. HEMATOLOGIC/LYMPHATIC: No anemia. No purpura. No petechiae. No prolonged or excessive bleeding. No palpable lymph nodes. PHYSICAL EXAMINATION: GENERAL: The patient is awake, alert and oriented, lying in bed in no distress. VITAL SIGNS: Temperature 98.7 F, Pulse 80, Respiratory Rate 18, BP 108/64, Pulse Ox 95% HEENT: Head normocephalic, atraumatic. Eyes: Extraocular muscles are intact. Pupils are equal, round and reactive to light and accommodation. Ears: No lesions. Nose appeared normal. Throat: No exudate or erythema. NECK: Supple. No JVD, no carotid bruit. No lymphadenopathy or thyromegaly. LUNGS: Faint expiratory wheeze bilaterally. Percussion note normal. Chest symmetrical. HEART: S1, S2, no S3. No murmurs. No cyanosis or clubbing. No ascites. Pulses: Dorsalis pedis and posterior tibial pulses +1 to +2 both sides. ABDOMEN: Soft. Non-tender. Bowel sounds active. No CVA tenderness. No mass felt. EXTREMITIES: No edema. Full range of motion of all extremities, equal. NEUROLOGIC: No focal deficit. Cranial nerves II through XII are grossly intact. No headache, no double vision or headache. SKIN: Not dry. Intact. Turgor-normal. LYMPHATIC: No palpable lymph nodes/no lymphedema. MUSCULOSKELETAL: Normal joints with no swelling. Muscle tone is normal. LAB REVIEW: 02/06/18 05:00 02/06/18 05:00 02/06/18 05:00: Sodium 134 L, Potassium 4.3, Chloride 101, Carbon Dioxide 24, Anion Gap 13.3, BUN 18, Creatinine 1.00, Estimated GFR (MDRD) 55.00, BUN/ Creatinine Ratio 18.00, Glucose 205 H D, Calcium 9.4, Total Bilirubin 0.7, AST 13 L, ALT 16, Alkaline Phosphatase 92, Total Protein 7.2, Albumin 3.6, Globulin 3.6, Albumin/Globulin Ratio 1.00 02/06/18 05:00: WBC 5.87, RBC 4.29, Hgb 13.4, Hct 38.3, MCV 89.3, MCH 31.2 H, MCHC 35.0, RDW Coeff of [place] 11.9, Plt Count 266, Immature Gran % (Auto) 1.0, Neut % (Auto) 74.9, Lymph % (Auto) 21.5, [place] % (Auto) 1.9, Eos % (Auto) 0.2, Baso % (Auto) 0.5, Immature Gran # (Auto) 0.1, Neut # (Auto) 4.4, Lymph # (Auto ) 1.3, [place] # (Auto) 0.1 L, Eos # (Auto) 0.0, Baso # (Auto) 0.0 02/05/18 20:54: Puncture Site Lb, O2 Saturation 93.0 L, ABG pH 7.423, ABG pCO2 38.5, ABG pO2 65.0 L, ABG HCO3 25.2, ABG Total CO2 26, ABG Base Excess 1, Nemesio Test +, FiO2 % 21.0 02/05/18 20:05: B-Natriuretic Peptide 52 02/05/18 20:05: Total Creatine Kinase 50, Troponin I < 0.0100 02/05/18 20:05: Sodium 133 L, Potassium 3.6, Chloride 100, Carbon Dioxide 23, Anion Gap 13.6, BUN 14, Creatinine 0.88, Estimated GFR (MDRD) 63.00, BUN/ Creatinine Ratio 15.90, Glucose 140 H, Calcium 9.7, Total Bilirubin 1.0, AST 17 , ALT 17, Alkaline Phosphatase 92, Total Protein 7.2, Albumin 3.8, Globulin 3.4 , Albumin/Globulin Ratio 1.12 02/05/18 20:05: WBC 9.23, RBC 4.43, Hgb 13.6, Hct 38.9, MCV 87.8, MCH 30.7, MCHC 35.0, RDW Coeff of [place] 11.9, Plt Count 284, Immature Gran % (Auto) 0.5, Neut % (Auto) 54.2, Lymph % (Auto) 36.5, [place] % (Auto) 6.6, Eos % (Auto) 1.5, Baso % (Auto) 0.7, Immature Gran # (Auto) 0.1, Neut # (Auto) 5.0, Lymph # (Auto ) 3.4, [place] # (Auto) 0.6, Eos # (Auto) 0.1, Baso # (Auto) 0.1 ASSESSMENT: 1. ACUTE COPD EXACERBATION 2. SHORTNESS OF BREATH 3. HYPERTENSION 4. ANXIETY PLAN: 1. Increase Solu-Medrol 100 mg b.i.d. Plan and coordination of the patient's care discussed in the presence of Computer Programmer Analyst and nurse. CONDITION: Stable SCRIBED BY: KATHY HAILE Autotransfusionist scribed while in presence of service performed by Dr. Diaz/Lelo Norman APRN on 02/06/18 (1909)
[2018-02-06] MEDS ORDERED: SOLU-MEDROL 40 MG IVP SCH ×2 (09:00)
[2018-02-06] MEDS ORDERED: SOLU-MEDROL 125 MG IVP SCH (09:00)
[2018-02-06] MEDS ORDERED: NON-FORMULARY MEDICATION (Losartan/Hydrochlorothiazide [Hyzaar 100-12.5 Tablet] 1 EACH) PO SCH (09:00)
[2018-02-06] MEDS ORDERED: NON-FORMULARY MEDICATION (Cholecalciferol (Vitamin D3) [Vitamin D3] 1,000 UNIT) PO SCH (09:00)
[2018-02-06] MEDS: PREDNISONE PO SCH (17:07)
[2018-02-06] MEDS ORDERED: MIRTAZAPINE 30 MG PO SCH (21:00)
[2018-02-06] MEDS: LOVENOX SUBCUT SCH (21:02)
[2018-02-06] MEDS: REMERON PO SCH (21:03)
[2018-02-06] MEDS: ATIVAN PO PRN (21:03)
[2018-02-07] MEDS: SODIUM CHLORIDE 1,000 ML IV SCH (00:31)
[2018-02-07] MEDS: DUONEB NEB SCH (05:20)
[2018-02-07] MEDS: COZAAR PO SCH (08:08)
[2018-02-07] MEDS: VITAMIN D PO SCH (08:09)
[2018-02-07] MEDS: MEVACOR PO SCH (08:09)
[2018-02-07] MEDS: NORVASC PO SCH (08:09)
[2018-02-07] MEDS: PREDNISONE PO SCH ×2 (08:09→16:45)
[2018-02-07] MEDS: NORCO 10-325 PO SCH ×4 (08:09→20:26)
[2018-02-07] MEDS: HYDROCHLOROTHIAZIDE PO SCH (08:09)
[2018-02-07] MEDS: ASPIRIN CHEWABLE PO SCH (08:09)
[2018-02-07] MEDS: ROCEPHIN 1 GM in SODIUM CHLORIDE 50 ML IV SCH (08:12)
[2018-02-07] MEDS: XOPENEX 1.25 MG NEB SCH ×2 (11:05→18:45)
--- NOTE | 2018-02-07 13:18 | PCM.PROG ---
Attending Provider: ATTENDING PROVIDER: Dr. SHIRA DIAZ This patient is seen with Lelo Norman, Nurse Practitioner. DATE OF SERVICE: 02/07/18 SUBJECTIVE: This 72 year old WHITE/ F was hospitalized 02/05/18. The patient is lying in bed resting comfortably. She slept through the night. Potassium slightly decreased today. She had a short episode of tachycardia yesterday but none since changing to oral steroids. Anxiety discussed. The patient has been taking more than the prescribed amount of Ativan and she is aware of the risks. She already sees [facility]. REVIEW OF SYSTEMS: CONSTITUTIONAL: Weakness. No night sweats. No malaise, lethargy. No fever or chills. HEENT: Eyes: No visual changes. No eye pain. No eye discharge. ENT: No runny nose. No epistaxis. No sinus pain. No odynophagia. No congestion. RESPIRATORY: Cough. No congestion. No hemoptysis. No shortness of breath. CARDIOVASCULAR: No angina symptoms. No CHF symptoms. No atypical chest pain for CAD. No palpitations. No orthopnea.. GASTROINTESTINAL: No abdominal pain. No nausea or vomiting. No diarrhea or constipation. No hematemesis. No hematochezia. GENITOURINARY: No urgency. No frequency. No dysuria. No hematuria. No obstructive symptoms. No discharge. No pain. No significant abnormal bleeding. MUSCULOSKELETAL: No musculoskeletal pain; no joint swelling. NEUROLOGICAL: Awake, alert, oriented to time, place and person. No headache. No neck pain. No syncope. No seizures. No dizziness. PSYCHIATRIC: Not anxious. No depression. No suicidal thoughts. No homicidal thoughts. SKIN: No rash. No lesions. No wounds. ENDOCRINE: No unexplained weight loss. No weight gain. HEMATOLOGIC/LYMPHATIC: No anemia. No purpura. No petechiae. No prolonged or excessive bleeding. No palpable lymph nodes. PHYSICAL EXAMINATION: GENERAL: The patient is awake, alert and oriented, lying/sitting in bed in no distress. VITAL SIGNS: Temperature 97.8 F, Pulse 84, Respiratory Rate 18, BP 126/76, Pulse Ox 98% HEENT: Head normocephalic, atraumatic. Eyes: Extraocular muscles are intact. Pupils are equal, round and reactive to light and accommodation. Ears: No lesions. Nose appeared normal. Throat: No exudate or erythema. NECK: Supple. No JVD, no carotid bruit. No lymphadenopathy or thyromegaly. LUNGS: Diminished breath sounds. Clear to auscultation. Percussion note normal. Chest symmetrical. HEART: S1, S2, no S3. No murmurs. No cyanosis or clubbing. No ascites. Pulses: Dorsalis pedis and posterior tibial pulses +1 to +2 both sides. ABDOMEN: Soft. Non-tender. Bowel sounds active. No CVA tenderness. No mass felt. EXTREMITIES: No edema. Full range of motion of all extremities, equal. NEUROLOGIC: No focal deficit. Cranial nerves II through XII are grossly intact. No headache, no double vision or headache. SKIN: Not dry. Intact. Turgor-normal. LYMPHATIC: No palpable lymph nodes/no lymphedema. MUSCULOSKELETAL: Normal joints with no swelling. Muscle tone is normal. LAB REVIEW: 02/07/18 04:15 02/07/18 04:15 02/07/18 04:15: Sodium 134 L, Potassium 3.4 L, Chloride 102, Carbon Dioxide 24, Anion Gap 11.4, BUN 22 H, Creatinine 0.85, Estimated GFR (MDRD) 66.00, BUN/ Creatinine Ratio 25.88, Glucose 193 H, Calcium 9.5, Total Bilirubin 0.5, AST 10 L, ALT 11 L, Alkaline Phosphatase 90, Total Protein 6.6, Albumin 3.4, Globulin 3.2, Albumin/Globulin Ratio 1.06 02/07/18 04:15: WBC 8.43, RBC 3.84 L, Hgb 12.2, Hct 33.9 L, MCV 88.3, MCH 31.8 H , MCHC 36.0 H, RDW Coeff of [place] 11.9, Plt Count 251, Immature Gran % (Auto) 1.7 , Neut % (Auto) 69.8, Lymph % (Auto) 19.6, [place] % (Auto) 8.3, Eos % (Auto) 0.4, Baso % (Auto) 0.2, Immature Gran # (Auto) 0.1, Neut # (Auto) 5.9, Lymph # (Auto ) 1.7, [place] # (Auto) 0.7, Eos # (Auto) 0.0, Baso # (Auto) 0.0 ASSESSMENT: 1. ACUTE COPD EXACERBATION 2. SHORTNESS OF BREATH 3. HYPERTENSION 4. ANXIETY 5. HYPOKALEMIA PLAN: 1. Potassium 20 mEq twice a day Plan and coordination of the patient's care discussed in the presence of Healthcare Administration Intern and nurse. CONDITION: Stable SCRIBED BY: Bee MARTINist scribed while in presence of service performed by Dr. Diaz/Lelo Norman APRN on 02/07/18 ([id number])
--- NOTE | 2018-02-07 14:39 | PN ---
DATE OF SERVICE: 02/05/18 SUBJECTIVE: The patient was seen and examined with family. The patient's son called me at home and was advised to send the patient to the emergency room. The patient had been short of breath. On ABGs, p02 was 57, pc02 41. The patient had a normal pH. The patient was in respiratory failure with acute bronchitis. The patient is a heavy smoker and has a lot of anxiety. Her recently with some family problems. Now the son has moved in with the granddaughter. PHYSICAL EXAMINATION: HEENT: Head normocephalic, atraumatic. Eyes: Extraocular muscles are intact. Pupils are equal, round and reactive to light and accommodation. Ears: No lesions. Nose appeared normal. Throat: No exudate or erythema. NECK: Supple. No JVD, no carotid bruit. No lymphadenopathy or thyromegaly. LUNGS: Decreased breath sounds but clear to auscultation. Percussion note normal. Chest symmetrical. HEART: S1, S2, no S3. No murmurs. No cyanosis or clubbing. No ascites. Pulses: Dorsalis pedis and posterior tibial pulses +1 to +2 both sides. ABDOMEN: Soft. Nontender. Bowel sounds active. No CVA tenderness. No mass felt. EXTREMITIES: No edema. Full range of motion of all extremities, equal. NEUROLOGIC: No focal deficit. Cranial nerves II through XII are grossly intact. No headache, no double vision or headache. SKIN: Not dry. Intact. Turgor - normal. LYMPHATIC: No palpable lymph nodes/no lymphedema. MUSCULOSKELETAL: Normal joints with no swelling. Muscle tone is normal. ASSESSMENT: 1. ACUTE BRONCHITIS 2. COPD WITH EXACERBATION WITH RESPIRATORY FAILURE 3. MASSIVE OBESITY 4. GENERALIZED ANXIETY DISORDER 5. DYSLIPIDEMIA 6. HYPERTENSION PLAN: 1. Counseling for smoking. 2. Advised to lose weight, at least 100 lbs. 3. Will start the patient on steroids, antibiotics. Patient education carried out. CONDITION: Stable TIME SPENT: More than 30 minutes. Plan and coordination of the patient's care discussed in the presence of nurse. SUSAN
--- NOTE | 2018-02-07 14:42 | PN ---
DATE OF SERVICE: 02/06/18 SUBJECTIVE: The patient was seen and examined with the nurse practitioner. The patient's condition has improved. Her breathing has improved. The steroids made her nervous. Pulse rate had gone up to 110 - 120 with minimal exertion. Combination of steroids and also because of lack of activity, sedentary lifestyle with severe COPD and has sinus tachycardia. The patient is strongly advised to quit smoking, advised to lose weight. Condition otherwise stable, improving. TIME SPENT: More than 30 minutes. Plan and coordination of the patient's care discussed in the presence of nurse. SUSAN
[2018-02-07] MEDS: K-DUR PO SCH (16:45)
[2018-02-07] MEDS: REMERON PO SCH (20:25)
[2018-02-07] MEDS: LOVENOX SUBCUT SCH (20:25)
[2018-02-07] MEDS: ATIVAN PO PRN (20:26)
[2018-02-08] MEDS: XOPENEX 1.25 MG NEB SCH ×2 (00:20→05:03)
[2018-02-08] MEDS: SODIUM CHLORIDE 1,000 ML IV SCH (04:01)
[2018-02-08 05:15] VITALS: TEMP 97.9
--- NOTE | 2018-02-08 08:34 | PN ---
CODING FOR BILLING 02/05/18 LEVEL 5 02/06/18 INTERMEDIATE 02/07/18 INTERMEDIATE 02/08/18 DISCHARGE MTDD
--- NOTE | 2018-02-08 08:41 | DS ---
DATE OF SERVICE: 02/08/18 FINAL DIAGNOSIS: 1. COPD EXACERBATION/CHRONIC BRONCHITIS 2. SHORTNESS OF BREATH, IMPROVED 3. HYPERTENSION 4. ANXIETY/DEPRESSION ([facility]) 5. HYPERTENSION 6. HYPOKALEMIA, TREATED 7. HYPONATREMIA, TREATED 8. DYSLIPIDEMIA 9. OSTEOARTHRITIS 10. RESTLESS LEG SYNDROME 11. ADVANCED DEGENERATIVE CHANGES-LOWER T-SPINE 12. OBESITY (BMI 34.9) 13. CHOLECYSTECTOMY 14. PARTIAL HYSTERECTOMY 15. BILATERAL CATARACT EXTRACTION 16. CURRENT SMOKER LAST VITALS Temp Pulse Resp BP Pulse Ox 97.9 F 81 16 121/73 97 02/08/18 05:14 02/08/18 05:14 02/08/18 05:14 02/08/18 05:14 05:14 DISCHARGE INSTRUCTIONS: RETURN TO SEE DR. DIAZ IN HIS OFFICE ON 02/14/18 AT 10 A.M. ALLERGIES simvastatin [From Zocor] Allergy (Mild, Verified 02/05/18 20:50) Rash atorvastatin [From Lipitor] Adverse Reaction (Mild, Verified 02/05/18 20:50) muscle pain rosuvastatin [From Crestor] Adverse Reaction (Mild, Verified 02/05/18 20:50) muscle pain MEDICATIONS AT DISCHARGE: Hydrocodone Bitart/Acetaminophen ([place] 10-325) 1 tab PO QID [facility] Last Admin: 02/07/18 20:26 Dose: 1 tab Albuterol Sulfate 0.083% Neb 1 Vial NEB QID Amlodipine Besylate (Norvasc) 5 mg PO DAILY [facility] Last Admin: 02/07/18 08:09 Dose: 5 mg Aspirin (Aspirin Chewable) 162 mg PO DAILYWM [facility] Last Admin: 02/07/18 08:09 Dose: 162 mg Cephalexin (Keflex) 500 mg PO BID x 5 DAYS Cholecalciferol (Vitamin D) 1,000 unit PO DAILY [facility] Last Admin: 02/07/18 08:09 Dose: 1,000 unit Losartan Potassium (Cozaar)Hydrochlorothiazide 100/12.5 mg PO DAILY [facility] Last Admin: 02/07/18 08:08 Dose: 100/12.5 mg Lovastatin (Mevacor) 40 mg PO DAILY [facility] Last Admin: 02/07/18 08:09 Dose: 40 mg Mirtazapine (Remeron) 30 mg PO BEDTIME [facility] Last Admin: 02/07/18 20:25 Dose: 30 mg [place]-3 Fatty Acids (Fish Oil) 1,000 mg PO DAILY Potassium Chloride (K-Dur) 20 meq PO BIDWM X 10 DAYS [facility] Last Admin: 02/07/18 16:45 Dose: 20 meq Prednisone (Prednisone) 10 mg PO BIDWM X 5 DAYS [facility] Last Admin: 02/07/18 16:45 Dose: 10 mg NEW PRESCRIPTIONS: POTASSIUM HCL (K-DUR) 20 MEQ, TAKE ONE TABLET BY MOUTH TWICE DAILY WITH MEALS FOR 10 DAYS KEFLEX 500 MG, TAKE ONE CAPSULE BY MOUTH TWICE DAILY FOR 5 DAYS PREDNISONE 10 MG, TAKE ONE TABLET BY MOUTH TWICE DAILY WITH FOOD FOR 5 DAYS DIET INSTRUCTIONS: WEIGHT LOSS, HEALTHY HEART ACTIVITY: GET PLENTY OF REST AT HOME. GRADUALLY INCREASE YOUR ACTIVITY LEVEL ACCORDING TO YOUR TOLERATION. SMOKING: CURRENT EVERYDAY SMOKER DISEASE SPECIFIC EDUCATION: SHORTNESS OF BREATH COPD HYPOKALEMIA HYPONATREMIA PAROXYSMAL SINUS TACHYCARDIA HOME MEDICATIONS NEW PRESCRIPTIONS STOP SMOKING - COUNSELING FOR SMOKING DONE THE PATIENT WAS PROVIDED BOTH RISKS AND BENEFITS FOR NAIL PULLER USE OF STEROIDS SUCH BONE DEMINERALIZATION. SHE IS AWARE THAT THE PRESCRIPTION IS FOR SHORT TERM USE ONLY AND IS AGREEABLE TO TAKING THE MEDICATION. SHE ALSO WAS PROVIDED INFORMATION REGARDING STRESS/ANXIETY REDUCTION. SHE WAS ENCOURAGED TO RESUME SESSIONS AT "[facility] HOSPITAL COURSE: This is a 72-year-old female hospitalized with respiratory failure, cough, congestion and anxiety. The patient responded to Ativan, Rocephin, and nebs. Condition is stable. She is up and about. The patient has no real depression and good family support. Will discharge the patient on Keflex, K-Dur and Prednisone. Counseling for smoking done. Advised the patient to lose weight and exercise on regular basis. CURRENT CODE STATUS DO NOT INTUBATE, CPR ONLY CONDITION: STABLE TIME SPENT: More than 60 minutes. MTDD
--- NOTE | 2018-02-08 09:02 | PCM.PROG ---
Attending Provider: ATTENDING PROVIDER: Dr. SHIRA DIAZ DATE OF SERVICE: 02/08/18 SUBJECTIVE: This 72 year old WHITE/ F was hospitalized 02/05/18 with respiratory failure. Condition has improved. The patient has COPD, is a heavy smoker and has a lot of family problems. She has no homicidal or suicidal tendancies. She has good family support. REVIEW OF SYSTEMS: CONSTITUTIONAL: Fatigue and tired. No night sweats. No malaise, lethargy. No fever or chills. HEENT: Eyes: No visual changes. No eye pain. No eye discharge. ENT: No runny nose. No epistaxis. No sinus pain. No odynophagia. No congestion. RESPIRATORY: No cough, no congestion. No hemoptysis. No shortness of breath. CARDIOVASCULAR: No angina symptoms. No CHF symptoms. No atypical chest pain for CAD. No palpitations. No orthopnea.. GASTROINTESTINAL: No abdominal pain. No nausea or vomiting. No diarrhea or constipation. No hematemesis. No hematochezia. GENITOURINARY: No urgency. No frequency. No dysuria. No hematuria. No obstructive symptoms. No discharge. No pain. No significant abnormal bleeding. MUSCULOSKELETAL: No musculoskeletal pain; no joint swelling. NEUROLOGICAL: Awake, alert, oriented to time, place and person. No headache. No neck pain. No syncope. No seizures. No dizziness. PSYCHIATRIC: Not anxious. No depression. No suicidal thoughts. No homicidal thoughts. SKIN: No rash. No lesions. No wounds. ENDOCRINE: No unexplained weight loss. No weight gain. HEMATOLOGIC/LYMPHATIC: No anemia. No purpura. No petechiae. No prolonged or excessive bleeding. No palpable lymph nodes. PHYSICAL EXAMINATION: GENERAL: The patient is awake, alert and oriented, sitting in bed in no distress. VITAL SIGNS: Temperature 97.9 F, Pulse 81, Respiratory Rate 16, BP 121/73, Pulse Ox 97% HEENT: Head normocephalic, atraumatic. Eyes: Extraocular muscles are intact. Pupils are equal, round and reactive to light and accommodation. Ears: No lesions. Nose appeared normal. Throat: No exudate or erythema. NECK: Supple. No JVD, no carotid bruit. No lymphadenopathy or thyromegaly. LUNGS: Decreased breath sounds. Clear to auscultation. Percussion note normal. Chest symmetrical. HEART: S1, S2, no S3. No murmurs. No cyanosis or clubbing. No ascites. Pulses: Dorsalis pedis and posterior tibial pulses +1 to +2 both sides. ABDOMEN: Soft. Non-tender. Bowel sounds active. No CVA tenderness. No mass felt. EXTREMITIES: No edema. Full range of motion of all extremities, equal. NEUROLOGIC: No focal deficit. Cranial nerves II through XII are grossly intact. No headache, no double vision or headache. SKIN: Warm and dry. Intact. Turgor-normal. LYMPHATIC: No palpable lymph nodes/no lymphedema. MUSCULOSKELETAL: Normal joints with no swelling. Muscle tone is normal. LAB REVIEW: 02/08/18 06:20 02/08/18 06:20 02/08/18 06:20: Sodium 137, Potassium 3.4 L, Chloride 104, Carbon Dioxide 27, Anion Gap 9.4, BUN 22 H, Creatinine 0.83, Estimated GFR (MDRD) 68.00, BUN/ Creatinine Ratio 26.50, Glucose 148 H, Calcium 9.1, Total Bilirubin 0.6, AST 10 L, ALT 13, Alkaline Phosphatase 83, Total Protein 6.5, Albumin 3.4, Globulin 3.1 , Albumin/Globulin Ratio 1.10 02/08/18 06:20: WBC 7.54, RBC 3.95 L, Hgb 12.4, Hct 35.4 L, MCV 89.6, MCH 31.4 H , MCHC 35.0, RDW Coeff of [place] 12.0, Plt Count 263, Immature Gran % (Auto) 1.9, Neut % (Auto) 51.2, Lymph % (Auto) 38.1, [place] % (Auto) 7.3, Eos % (Auto) 0.8, Baso % (Auto) 0.7, Immature Gran # (Auto) 0.1, Neut # (Auto) 3.9, Lymph # (Auto ) 2.9, [place] # (Auto) 0.6, Eos # (Auto) 0.1, Baso # (Auto) 0.1 ASSESSMENT: 1. RESPIRATORY FAILURE SEEMS TO BE UNDER CONTROL 2. COPD, CHRONIC 3. SMOKER 4. HYPERTENSION 5. OBESITY PLAN: 1. Discharge home 2. Keflex 500 mg b.i.d. times five days 3. Prednisone 10 mg b.i.d. times five days 4. K-Dur 20 mEq b.i.d. for 10 days 5. Will see the patient in the office for followup next week. 6. Lifestyle modifications, counseling for smoking done. Plan and coordination of the patient's care discussed in the presence of Chairman & Chief Executive Officer and nurse. EDUCATION: Advised the patient to quit smoking, counseling for smoking done. Lifestyle modifications discussed, diet for weight reduction; exercise daily two miles per day times 5 days a week. Medications discussed to include the side effects of Prednisone with avascular necrosis of the femoral head. CONDITION: Stable SCRIBED BY: KATHY HAILE, Apparel Manager scribed while in presence of service performed by Dr. SHIRA DIAZ on 02/08/18 ([id number])
[2018-02-08] MEDS: ROCEPHIN 1 GM in SODIUM CHLORIDE 50 ML IV SCH (09:17)
[2018-02-08] MEDS: ASPIRIN CHEWABLE PO SCH (09:18)
[2018-02-08] MEDS: COZAAR PO SCH (09:18)
[2018-02-08] MEDS: HYDROCHLOROTHIAZIDE PO SCH (09:19)
[2018-02-08] MEDS: K-DUR PO SCH (09:19)
[2018-02-08] MEDS: NORCO 10-325 PO SCH (09:20)
[2018-02-08] MEDS: PREDNISONE PO SCH (09:20)
[2018-02-08] MEDS: MEVACOR PO SCH (09:20)
[2018-02-08] MEDS: NORVASC PO SCH (09:21)
[2018-02-08] MEDS: VITAMIN D PO SCH (09:21)
--- NOTE | 2018-02-08 09:40 | CM.DICTOOL ---
ADMISSION: 02/05/18 22:23 DISCHARGE: 02/08/18 DATE OF SERVICE: 02/08/18 FINAL DIAGNOSIS COPD EXACERBATION/CHRONIC BRONCHITIS SHORTNESS OF BREATH, IMPROVED HYPERTENSION ANXIETY/DEPRESSION ([facility]) HYPERTENSION HYPOKALEMIA, TREATED HYPONATREMIA, TREATED DYSLIPIDEMIA OSTEOARTHRITIS RESTLESS LEG SYNDROME ADVANCED DEGENERATIVE CHANGES-LOWER T-SPINE OBESITY (BMI 34.9) CHOLECYSTECTOMY PARTIAL HYSTERECTOMY BILATERAL CATARACT EXTRACTION CURRENT SMOKER LAST VITALS Temp Pulse Resp BP Pulse Ox 97.9 F 81 16 121/73 97 02/08/18 05:14 02/08/18 05:14 02/08/18 05:14 02/08/18 05:14 02/08/18 05:14 TAKE THESE MEDICATIONS AT HOME Hydrocodone Bitart/Acetaminophen ([place] 10-325) 1 tab PO QID [facility] Last Admin: 02/07/18 20:26 Dose: 1 tab Albuterol Sulfate 0.083% Neb 1 Vial NEB QID Amlodipine Besylate (Norvasc) 5 mg PO DAILY [facility] Last Admin: 02/07/18 08:09 Dose: 5 mg Aspirin (Aspirin Chewable) 162 mg PO DAILYWM [facility] Last Admin: 02/07/18 08:09 Dose: 162 mg Cephalexin (Keflex) 500 mg PO BID x 5 DAYS Cholecalciferol (Vitamin D) 1,000 unit PO DAILY [facility] Last Admin: 02/07/18 08:09 Dose: 1,000 unit Losartan Potassium (Cozaar)Hydrochlorothiazide 100/12.5 mg PO DAILY [facility] Last Admin: 02/07/18 08:08 Dose: 100/12.5 mg Lovastatin (Mevacor) 40 mg PO DAILY [facility] Last Admin: 02/07/18 08:09 Dose: 40 mg Mirtazapine (Remeron) 30 mg PO BEDTIME [facility] Last Admin: 02/07/18 20:25 Dose: 30 mg [place]-3 Fatty Acids (Fish Oil) 1,000 mg PO DAILY Potassium Chloride (K-Dur) 20 meq PO BIDWM X 10 DAYS [facility] Last Admin: 02/07/18 16:45 Dose: 20 meq Prednisone (Prednisone) 10 mg PO BIDWM X 5 DAYS [facility] Last Admin: 02/07/18 16:45 Dose: 10 mg ALLERGIES simvastatin [From Zocor] Allergy (Mild, Verified 02/05/18 20:50) Rash atorvastatin [From Lipitor] Adverse Reaction (Mild, Verified 02/05/18 20:50) muscle pain rosuvastatin [From Crestor] Adverse Reaction (Mild, Verified 02/05/18 20:50) muscle pain NEW PRESCRIPTIONS: Cephalexin [Keflex] 500 mg PO BID X5 DAYS #10 capsule 02/08/18 Potassium Chloride [K-Dur] 20 meq PO BIDWM X10 DAYS #20 tab 02/08/18 Prednisone 10 mg PO BIDWM X5 DAYS #10 tablet 02/08/18 SMOKING: CURRENT EVERYDAY SMOKER THE PATIENT HAS RECEIVED INFORMATION REGARDING SMOKING CESSATION BENEFITS. SHE HAS BEEN ENCOURAGED STRONGLY TO STOP SMOKING SOON POSSIBLE. SHE UNDERSTANDS FULLY THE IMPACT NONCOMPLIANCE WILL HAVE ON HER CARDIOPULMONARY HEALTH. SHE TELLS ME SHE PLANS TO STOP SMOKING. I WILL CONTINUE TO PROVIDE ENCOURAGEMENT THROUGH THE OFFICE VISITS AND WILL MONITOR HER PROGRESS. DISEASE SPECIFIC EDUCATION: SHORTNESS OF BREATH COPD HYPOKALEMIA HYPONATREMIA PAROXYSMAL SINUS TACHYCARDIA HOME MEDICATIONS NEW PRESCRIPTIONS THE PATIENT WAS PROVIDED BOTH RISKS AND BENEFITS FOR [place]AIL USE OF STEROIDS SUCH BONE DEMINERALIZATION. SHE IS AWARE THAT THE PRESCRIPTION IS FOR SHORT TERM USE ONLY AND IS AGREEABLE TO TAKING THE MEDICATION. SHE ALSO WAS PROVIDED INFORMATION REGARDING STRESS/ANXIETY REDUCTION. SHE WAS ENCOURAGED TO RESUME SESSIONS AT "[facility]." LAB REVIEW: 02/08/18 06:20 02/08/18 06:20 02/08/18 06:20: Sodium 137, Potassium 3.4 L, Chloride 104, Carbon Dioxide 27, Anion Gap 9.4, BUN 22 H, Creatinine 0.83, Estimated GFR (MDRD) 68.00, BUN/ Creatinine Ratio 26.50, Glucose 148 H, Calcium 9.1, Total Bilirubin 0.6, AST 10 L, ALT 13, Alkaline Phosphatase 83, Total Protein 6.5, Albumin 3.4, Globulin 3.1 , Albumin/Globulin Ratio 1.10 02/08/18 06:20: WBC 7.54, RBC 3.95 L, Hgb 12.4, Hct 35.4 L, MCV 89.6, MCH 31.4 H , MCHC 35.0, RDW Coeff of [place] 12.0, Plt Count 263, Immature Gran % (Auto) 1.9, Neut % (Auto) 51.2, Lymph % (Auto) 38.1, [place] % (Auto) 7.3, Eos % (Auto) 0.8, Baso % (Auto) 0.7, Immature Gran # (Auto) 0.1, Neut # (Auto) 3.9, Lymph # (Auto ) 2.9, [place] # (Auto) 0.6, Eos # (Auto) 0.1, Baso # (Auto) 0.1 PLAN: DISCHARGE HOME TODAY, 02/08/[address] DIAZ IN HIS OFFICE ON 02/14/18 AT 10 A.M. RESUME YOUR HOME MEDICATIONS PER LIST PROVIDED BY THE NURSING STAFF NEW PRESCRIPTIONS POTASSIUM HCL (K-DUR) 20 MEQ, TAKE ONE TABLET BY MOUTH TWICE DAILY WITH MEALS FOR 10 DAYS KEFLEX 500 MG, TAKE ONE CAPSULE BY MOUTH TWICE DAILY FOR 5 DAYS PREDNISONE 10 MG, TAKE ONE TABLET BY MOUTH TWICE DAILY WITH FOOD FOR 5 DAYS ACTIVITY GET PLENTY OF REST AT HOME. GRADUALLY INCREASE YOUR ACTIVITY LEVEL ACCORDING TO YOUR TOLERATION. STOP SMOKING DIET WEIGHT LOSS, HEALTHY HEART SUMMARY THE PATIENT IS ALERT AND ORIENTED X3. SHE IS RECENTLY AND CURRENTLY RESIDES AT HOME ALONE. HER SONS ARE SUPPORTIVE OF HER NEEDS WHEN NECESSARY. SHE HAS BEEN INDEPENDENT WITH [employer]. AT HOME SHE HAS A NEBULIZER FROM [facility]. SHE DOES NOT QUALIFY FOR SUPPLEMENTAL OXYGEN AT THIS TIME. MS. LUNA DESIRES TO RETURN HOME AT DISCHARGE. HER SKIN TURGOR IS INTACT AND WITHOUT DECUBITUS ULCERS. HER HYDRATION AND NUTRITIONAL STATUS ARE BOTH IMPROVED. SHE IS FEELING BETTER AND READY FOR TODAY 'S DISCHARGE HOME TODAY. WE WILL FOLLOW HER THROUGH THE OFFICE SCHEDULED ABOVE. CURRENT CODE STATUS DO NOT INTUBATE, CPR ONLY SHIRA DIAZ M.D.
[2018-02-08 09:51] VITALS: BP 152/80
--- NOTE | 2018-02-08 13:14 | HP ---
DATE OF SERVICE: 02/06/18 REASON FOR HOSPITALIZATION/HISTORY OF PRESENT ILLNESS: 72 year old white female with a long history of COPD and heavy smoker. She presents to the emergency room with shortness of breath and weakness. PAST MEDICAL HISTORY: Generalized anxiety disorder Hypertension COPD Dyslipidemia Smoker Depression GERD Stress Chronic leg edema PAST SURGICAL HISTORY: Status post cholecystectomy Partial hysterectomy Bilateral cataract extraction REVIEW OF SYSTEMS: CONSTITUTIONAL: No night sweats. Fatigue. No fever or chills. Weakness. HEENT: Eyes: No visual changes. No eye pain. No eye discharge. ENT: No runny nose. No epistaxis. No sinus pain. No sore throat. No odynophagia. No ear pain. No congestion. RESPIRATORY: Cough, no congestion. No hemoptysis. Shortness of breath. CARDIOVASCULAR: No angina symptoms. No CHF symptoms. No atypical chest pain for CAD. No palpitations. No PND. No orthopnea. GASTROINTESTINAL: No abdominal pain. No nausea or vomiting. No diarrhea or constipation. No hematemesis. No hematochezia. GENITOURINARY: No urgency. No frequency. No dysuria. No hematuria. No obstructive symptoms. No discharge. No pain. No significant abnormal bleeding. MUSCULOSKELETAL: No musculoskeletal pain. No joint swelling. No arthritis. NEUROLOGICAL: No headache. No neck pain. No syncope. No seizures. No dizziness. PSYCHIATRIC: Not anxious. No depression. No suicidal thoughts. No homicidal thoughts. SKIN: No rash. No lesions. No wounds. ENDOCRINE: No unexplained weight loss. No weight gain. HEMATOLOGIC/LYMPHATIC: No anemia. No purpura. No petechiae. No prolonged or excessive bleeding. No palpable lymph nodes. PERSONAL/FAMILY/SOCIAL HISTORY: The patient is a . She is heavy smoker, no alcohol or illicit drug use. MEDICATIONS: Mevacor 20mg PO daily Aspirin 81mg PO daily Remeron 30mg PO bedtime Ativan 0.5mg PO daily Fish Oil 1000 one capsule PO daily Vitamin D 3 1000 unit PO daily Albuterol 1 vial JARROD four times a day Norvasc 5mg Po daily Hyzaar 100-12.5mg PO daily [place] 10-325mg PO four times a day ALLERGIES: Simvastatin Atorvastatin Rosuvastatin PHYSICAL EXAMINATION: VITAL SIGNS: Temperature 97.1, heart rate 74, respiratory rate 16, blood pressure 160/93 and pulse ox 96%. HEENT: Head normocephalic, atraumatic. Eyes: Extraocular muscles are intact. Pupils are equal, round and reactive to light and accommodation. Ears: No lesions. Nose appeared normal. Throat: No exudate or erythema. NECK: Supple. No JVD, no carotid bruit. No lymphadenopathy or thyromegaly. LUNGS: Diminished breath sounds bilaterally. Bilateral expiratory wheezing. Percussion note normal. Chest symmetrical. HEART: S1, S2, no S3. No murmurs. No cyanosis or clubbing. No ascites. Pulses: Dorsalis pedis and posterior tibial pulses +1 to +2 bilaterally. ABDOMEN: Soft. Nontender. Bowel sounds active. No CVA tenderness. No mass felt. EXTREMITIES: Trace bilateral leg edema. Full range of motion of all extremities, equal. NEUROLOGIC: No focal deficit. Cranial nerves II through XII are grossly intact. No headache, no double vision or headache. SKIN: Not dry. Intact. Turgor - normal. LYMPHATIC: No palpable lymph nodes/no lymphedema. MUSCULOSKELETAL: Normal joints with no swelling. Muscle tone is normal. LABS: WBC 4.92, hgb 13.5, hct 38.7, plt count 248, sodium 132, potassium 3.8, BUN 15, creatinine 1.04, glucose 94, GFR 52, AST 16m, ALT 17, Alkaline phosphatase 104. Urine is normal. Chest x-ray shows no acute process changes associated with COPD. ASSESSMENT: 1. Acute bronchitis 2. Acute COPD exacerbation 3. Shortness of breath 4. Smoker 5. Anxiety 6. Hypertension PLAN: 1. Will admit 2. Routine telemetry orders 3. CBC and CMP daily 4. EKG 5. Rocephin 1 gram IV daily 6. Normal saline at 75cc an hour 7. DUO NEBS Q 4 hours scheduled 8. Continue home medication 9. Solu-Medrol 40mg IV twice a day this was from the emergency room we will increase Solu-Medrol 100mg IV twice a day 10.Oxygen at 1-2 liters as needed Will follow closely. TIME SPENT: More than 70 minutes. MTDD
== END 2018-02-08 10:10 | disposition home or self-care (01) | DRG 189 ==
LOC: ED 20:38 → MEDSURG B 22:23
PROVIDERS: ADMIT Internal Medicine; ATTEND Internal Medicine
DX: J96.01 Acute respiratory failure with hypoxia (principal); J44.0 Chronic obstructive pulmonary disease with (acute) lower respiratory infection; J44.1 Chronic obstructive pulmonary disease with (acute) exacerbation; E87.1 Hypo-osmolality and hyponatremia; J20.9 Acute bronchitis, unspecified; R06.02 Shortness of breath; R53.1 Weakness; R00.0 Tachycardia, unspecified; R06.00 Dyspnea, unspecified; I10 Essential (primary) hypertension; M19.90 Unspecified osteoarthritis, unspecified site; G25.81 Restless legs syndrome; G31.89 Other specified degenerative diseases of nervous system; F41.9 Anxiety disorder, unspecified; E87.6 Hypokalemia; E78.5 Hyperlipidemia, unspecified; E66.9 Obesity, unspecified; Z72.0 Tobacco use; Z68.34 Body mass index [BMI] 34.0-34.9, adult
CPT/HCPCS: 36415; 80053; 82550; 82803; 83880; 84484; 85025; 93005; 93010; 94640; 96374; 99284

== ENCOUNTER 2018-02-24 11:30 | Outpatient (RCR) | END 2018-03-24 23:59 | LOC: NEWBEG 11:30 | PROVIDERS: ATTEND Psychiatry & Neurology Psychiatry | DX: F32.1 Major depressive disorder, single episode, moderate (principal); F41.9 Anxiety disorder, unspecified | CPT/HCPCS: 99213 ==

== ENCOUNTER 2018-06-11 13:57 | Emergency (ER) | payer OTHER ==
[2018-06-11 14:01] VITALS: BMI 35.9
--- NOTE | 2018-06-11 15:09 | CT ---
EXAM: CT chest without contrast HISTORY: Cough TECHNIQUE: Multi-slice transaxial helical with coronal and sagittal reformed images CONTRAST: None COMPARISON: CTA chest from 02/05/2018 FINDINGS: The aorta has normal caliber. The heart size is normal. No pericardial or pleural effusio ns are appreciated. No suspicious lymphadenopathy is detected. The lungs are emphysematous. No pul monary nodules or masses are detected. No acute airspace or interstitial opacities are evident. The solid abdominal organs are normal in their visualized portions of the upper abdomen. The gallbla dder is surgically absent and there is no biliary dilatation. The bones are free of suspicious osteolytic or osteoblastic lesions. IMPRESSION: 1. No acute cardiopulmonary disease. 2. Mild emphysema. 3. No pulmonary nodules or masses.
--- NOTE | 2018-06-11 15:15 | CT ---
EXAM: CT abdomen and pelvis without contrast HISTORY: Flank pain TECHNIQUE: Multi-slice transaxial helical with coronal and sagittal reformed images COMPARISON: CT abdomen/pelvis from 01/07/2017 FINDINGS: The lung bases are free of acute airspace or interstitial opacities. The heart size is nor mal. There are no pericardial or pleural effusions. The hepatic attenuation is normal relative to the spleen. There is a tiny hypodensity in the right a nterior hepatic lobe measuring 4.6 mm that is too small to characterize with accuracy but likely repr esents a simple cyst. No other hepatic lesions are appreciated. The gallbladder is surgically absen t. There is no biliary dilatation. The pancreas and adrenal glands are normal. The spleen has norm al size and attenuation. The kidneys ureters are normal. No nephrolithiasis or ureterolithiasis are appreciated. Nonopacifie d bladder is normal. The uterus is surgically absent and there are no adnexal masses. The abdominal aorta is atherosclerotic with normal caliber. The intestines have normal caliber without evidence o f obstruction or acute inflammation. The appendix is not visualized. There are no secondary feature s of acute appendicitis. No lymphadenopathy or ascites are detected. The bones are free of suspicious osteolytic or osteoblastic lesions. IMPRESSION: 1. Nonobstructive intestinal gas pattern. 2. Normal renal collecting systems. 3. Previous cholecystectomy without dilatation. 4. ASCVD.
--- NOTE | 2018-06-11 16:40 | ED.PDOC ---
General ED Provider: Dr. JENELLE AVILA-ER Chief Complaint: Urinary Problem Stated Complaint: im tired--im hurting on my flank--i either have a kidney stone or an infection Time Seen by Physician: 13:55 Mode of Arrival: Walk-In Information Source: Patient Exam Limitations: No limitations Primary Care Provider: SHIRA TESFAYE Nursing and Triage Documentation Reviewed and Agree: Yes Does patient meet sepsis criteria?: No System Inflammatory Response Syndrome: Not Applicable Sepsis Protocol: For patient's 13 years and over: Temp is 96.8 and below OR 101 and greater Pulse >90 BPM Resp >20/minute Acutely Altered Mental Status Are patient's symptoms suggestive of a new infection, such as: -Pneumonia -Skin, Soft Tissue -Endocarditis -UTI -Bone, Joint Infection -Implantable Device -Acute Abdominal Infection -Wound Infection -Meningitis -Blood Stream Catheter Infection -Unknown Miscellaneous Complaint Exam - Complex/Multi-System Complaint/Exam Onset/Duration: unknown Symptoms Are: Still present Initial Severity: Mild Current Severity: Mild Location of Pain: no pain Associated Signs and Symptoms: Reports: Weakness. Denies: Decreased responsiveness, Confusion, Agitation, Dizziness, Syncope, Headache, Short of air , Cough, Wheezing, Hemoptysis, Chest pain, Palpitations, Edema, Nausea, Vomiting , Diarrhea, Abdominal pain, Back pain, Dysuria, Hematemesis, Melena, Decreased oral intake, Fever, Diaphoresis, Immunocompromised, Indwelling biomedical engineer, Remote trauma Respiratory Distress: None JVD Present: No Tachypnea Present: No Stridor Present: No Abdominal Findings: Present: Normal findings Glascow Coma Scale (see protocol): 15 Meningeal Signs Positive: No Focal Weakness: Present: None Focal Sensory Loss: Present: None Gait: Normal Gag Reflex Present: Yes Babinski Sign: Negative Right, Negative Left Skin Findings: Present: Normal findings Joint Swelling Present: No In-Dwelling Device Present: No Quality Indicator For Non-Traumatic Chest Pain/Syncope: EKG Performed Review of Systems - Review Of Systems Constitutional: Reports: Weakness Eyes: Reports: No symptoms Ears, Nose, Mouth, Throat: Reports: No symptoms Respiratory: Reports: No symptoms Cardiac: Reports: No symptoms GI: Reports: No symptoms : Reports: No symptoms Musculoskeletal: Reports: No symptoms Skin: Reports: No symptoms Neurological: Reports: No symptoms Endocrine: Reports: No symptoms Hematologic/Lymphatic: Reports: No symptoms All Other Systems: Reviewed and Negative Past Medical History - Past Medical History Previously Healthy: No Endocrine: Reports: Dyslipidemia Cardiovascular: Reports: Hypertension Respiratory: Reports: COPD Hematological: Reports: None Gastrointestinal: Reports: None Genitourinary: Reports: None Neuro/Psych: Reports: None Musculoskeletal: Reports: None Cancer: Reports: None Last Menstrual Period: n/a - Surgical History General Surgical History: Reports: None - Family History Family History: Reports: None - Social History Smoking Status: Current every day smoker Hx Substance Use: No Alcohol Screening: None Physical Exam - Physical Exam Appearance: Well-appearing, No pain distress, Well-nourished Eyes: GUIDO, EOMI, Conjunctiva clear ENT: Ears normal, Nose normal, Oropharynx normal Neck: Supple Respiratory: Airway patent, Breath sounds clear, Breath sounds equal, Respirations nonlabored Cardiovascular: RRR, Pulses normal, No rub, No murmur GI/: Soft, Nontender, No masses, Bowel sounds normal, No Organomegaly Musculoskeletal: Normal strength, ROM intact, No edema, No calf tenderness Skin: Warm, Dry, Normal color Neurological: Sensation intact Psychiatric: Affect appropriate, Mood appropriate Interpretation - Radiology Interpretation Radiology Interpretation By: Radiologist Radiology Results: Negative Exam Interpreted: CT Scan - EKG Interpretation Time of EKG #1: 16:41 Rate: Normal Rhythm: Sinus Ectopy: None [place]: NL ST Segment: Normal Interpretation: nsr Critical Care Note - Critical Care Note Total Time (mins): 0 Course - Course Hematology/Chemistry: 06/11/18 14:45 06/11/18 14:45 Orders, Labs, Meds: Lab Review 06/11/18 06/11/18 06/11/18 14:15 14:37 14:45 WBC 7.13 RBC 4.11 L Hgb 12.5 Hct 35.8 L MCV 87.1 MCH 30.4 MCHC 34.9 RDW Coeff of [place] 11.5 L Plt Count 279 Immature Gran % (Auto) 0.8 Neut % (Auto) 56.9 Lymph % (Auto) 30.4 [place] % (Auto) 7.7 Eos % (Auto) 3.5 Baso % (Auto) 0.7 Immature Gran # (Auto) 0.1 Neut # (Auto) 4.1 Lymph # (Auto) 2.2 [place] # (Auto) 0.6 Eos # (Auto) 0.3 Baso # (Auto) 0.1 Sodium Potassium Chloride Carbon Dioxide Anion Gap BUN Creatinine Estimated GFR (MDRD) BUN/Creatinine Ratio Glucose Calcium Ferritin Total Bilirubin AST ALT Alkaline Phosphatase Total Creatine Kinase Troponin I Total Protein Albumin Globulin Albumin/Globulin Ratio TSH Urine Color Yellow Urine Clarity Clear Urine pH 6.5 Ur Specific [place] 1.010 Urine Protein Negative Urine Glucose (UA) Negative Urine Ketones Negative Urine Blood Negative Urine Nitrite Negative Urine Bilirubin Negative Urine Urobilinogen 0.2 Ur Leukocyte Esterase Negative Influ A Molecular Assay Negative by naat Influ B Molecular Assay Negative by naat 06/11/18 14:45 WBC RBC Hgb Hct MCV MCH MCHC RDW Coeff of [place] Plt Count Immature Gran % (Auto) Neut % (Auto) Lymph % (Auto) [place] % (Auto) Eos % (Auto) Baso % (Auto) Immature Gran # (Auto) Neut # (Auto) Lymph # (Auto) [place] # (Auto) Eos # (Auto) Baso # (Auto) Sodium 132.0 L Potassium 4.20 Chloride 96.0 L Carbon Dioxide 26.0 Anion Gap 14.20 BUN 24.0 H Creatinine 1.70 H Estimated GFR (MDRD) 30.00 BUN/Creatinine Ratio 14.11 Glucose 135.0 H Calcium 9.10 Ferritin Pending Total Bilirubin 1.00 AST 20.0 ALT 14.3 Alkaline Phosphatase 113.0 Total Creatine Kinase 110.4 Troponin I Pending Total Protein 7.20 Albumin 4.30 Globulin 2.90 Albumin/Globulin Ratio 1.48 TSH Pending Urine Color Urine Clarity Urine pH Ur Specific [place] Urine Protein Urine Glucose (UA) Urine Ketones Urine Blood Urine Nitrite Urine Bilirubin Urine Urobilinogen Ur Leukocyte Esterase Influ A Molecular Assay Influ B Molecular Assay Orders Category Date Time Status EKG-(ED ONLY) Stat CARDIO 06/11/18 14:32 Completed CBC W/ AUTO DIFF Stat LAB 06/11/18 14:45 Completed COMPREHENSIVE METABOLIC PANEL Stat LAB 06/11/18 14:45 Results CREATINE KINASE Stat LAB 06/11/18 14:45 Results FERRITIN Stat LAB 06/11/18 14:45 Results FLU A/B MOLECULAR Stat LAB 06/11/18 14:37 Completed IRON Stat LAB 06/11/18 14:45 Received THYROID STIMULATING HORMONE Stat LAB 06/11/18 14:45 Results TROPONIN I Stat LAB 06/11/18 14:45 Results URINALYSIS C & S IF INDICATED Stat LAB 06/11/18 14:15 Completed URINE CULTURE Stat LAB 06/11/18 14:15 Received VITAMIN B12 Stat LAB 06/11/18 14:[address] ABD/PEL WO RENAL STONE PROT Stat RADS 06/11/18 14:[address] CHEST W/O CONTRAST Stat RADS 06/11/18 14:32 Completed Vital Signs: Temp Pulse Resp BP Pulse Ox 06/11/18 17:55 98.3 F 89 20 128/77 94 L 06/11/18 13:57 98.1 F 95 H 20 126/85 94 L Departure - Departure Time of Disposition: 18:04 Disposition: HOME SELF-CARE Discharge Problem: RAMOS (acute kidney injury) Anemia Qualifiers: Anemia type: unspecified type Qualified Code(s): D64.9 - Anemia, unspecified Fatigue Qualifiers: Fatigue type: other Qualified Code(s): R53.83 - Other fatigue Instructions: Fatigue (ED) Condition: Stable Pt referred to PMD for follow-up: Yes IPMP verified?: No Additional Instructions: call and make appt with dr tesfaye to discuss kidney functions and anemia w/u Allergies/Adverse Reactions: Allergies simvastatin [From Zocor] Allergy (Mild, Verified 06/11/18 14:01) Rash atorvastatin [From Lipitor] Adverse Reaction (Mild, Verified 06/11/18 14:01) muscle pain rosuvastatin [From Crestor] Adverse Reaction (Mild, Verified 06/11/18 14:01) muscle pain Home Medications: Ambulatory Orders Aspirin [Aspirin Chewable] 2 tab PO DAILYWM 08/30/13 Lovastatin [Mevacor] 40 mg PO DAILY 08/30/13 Cholecalciferol (Vitamin D3) [Vitamin D3] 1,000 unit PO DAILY 01/06/18 [place]-3 Fatty Acids/Fish Oil [Fish Oil 1,000 mg Capsule] 1 each PO DAILY Albuterol Sulfate 0.083% Neb [Albuterol 0.083% Neb] 1 vial NEB QID #120 vial.neb 01/11/18 Amlodipine Besylate [Norvasc] 5 mg PO DAILY #30 tablet 01/11/18 Losartan/Hydrochlorothiazide [Hyzaar 100-12.5 Tablet] 1 each PO DAILY #30 tablet 01/11/18 Hydrocodone/Acetaminophen [[place] 10-325 Tablet] 1 tab PO QID 02/05/18 Alprazolam [Xanax] 0.25 mg PO TID 06/11/18 Levomefolate/Algal Oil [[place]-Algal Oil 7.5 mg Cap] 1 each PO DAILY 06/11/18 Triamterene/Hydrochlorothiazid [Dyazide] 1 cap PO DAILY 06/11/18 Disposition Discussed With: Patient, Family
[2018-06-11 17:55] VITALS: BP 128/77; TEMP 98.3
== END 2018-06-11 18:45 | disposition home or self-care (01) ==
LOC: ED 13:57
DX: N17.9 Acute kidney failure, unspecified (principal); D64.9 Anemia, unspecified; R53.83 Other fatigue; R53.1 Weakness; E78.5 Hyperlipidemia, unspecified; I10 Essential (primary) hypertension; F17.210 Nicotine dependence, cigarettes, uncomplicated; Z79.899 Other long term (current) drug therapy
CPT/HCPCS: 36415; 74176; 80053; 81001; 82550; 82607; 82728; 83540; 84443; 84484; 85025; 87086; 87502; 93005; 93010; 99283

== ENCOUNTER 2018-08-10 11:07 | Inpatient (IN) ==
--- NOTE | 2018-08-10 11:40 | ED.PDOC ---
General ED Provider: Dr. JENELLE FISHMAN Chief Complaint: Back Pain Stated Complaint: Chronic low back and hip pain -worsened over last few days. Admits to increased stress at home due to her son living there and they do not get along. Goes to pain mgt for her back pain and has pain contract with them Time Seen by Physician: 11:40 Mode of Arrival: Walk-In Information Source: Patient Exam Limitations: No limitations Primary Care Provider: SHIRA TESFAYE Nursing and Triage Documentation Reviewed and Agree: Yes Does patient meet sepsis criteria?: No System Inflammatory Response Syndrome: Not Applicable Sepsis Protocol: For patient's 13 years and over: Temp is 96.8 and below OR 101 and greater Pulse >90 BPM Resp >20/minute Acutely Altered Mental Status Are patient's symptoms suggestive of a new infection, such as: -Pneumonia -Skin, Soft Tissue -Endocarditis -UTI -Bone, Joint Infection -Implantable Device -Acute Abdominal Infection -Wound Infection -Meningitis -Blood Stream Catheter Infection -Unknown Musculoskeletal Complaint Exam - Hip/Pelvis Complaint/Exam Location of Pain: Reports: Right, Left Mechanism of Injury: Reports: No known trauma Symptoms Are: Still present Initial Severity: Moderate Current Severity: Moderate Location: Reports: Diffuse, Radiating Character: Reports: Sharp, Dull, Aching, Stiffness, Burning Aggravating: Reports: Movement, Weight bearing Alleviating: Reports: Rest Associated Signs and Symptoms: Reports: Weakness, Dizziness Related History: Reports: Similar episode Able to Bear Weight: Yes Septic Arthritis Risk Factors: Reports: None Related Surgical History: Reports: None, Fusion Pelvis Palpation: Stable Hip/Pelvis Findings: Absent: Extremity shortened, Swelling, Ecchymosis, Erythema , Warmth Tenderness: Present: Right, Left, PSIS, Greater Trochanter, Pubis Range of Motion Limited In: Present: Flexion, Extension, Abduction NV Bundle Intact Distal to Injury: Yes Differential Diagnoses: Arthritis, Bursitis, Strain Review of Systems - Review Of Systems Constitutional: Reports: Malaise, Weakness, Loss of appetite Eyes: Reports: No symptoms Ears, Nose, Mouth, Throat: Reports: No symptoms Respiratory: Reports: Short of air, Wheezing Cardiac: Reports: No symptoms GI: Reports: No symptoms : Reports: No symptoms Musculoskeletal: Reports: No symptoms Skin: Reports: No symptoms Neurological: Reports: Anxiety, Depressed Endocrine: Reports: No symptoms Hematologic/Lymphatic: Reports: No symptoms All Other Systems: Reviewed and Negative Past Medical History - Past Medical History Previously Healthy: No Endocrine: Reports: Dyslipidemia Cardiovascular: Reports: Hypertension Respiratory: Reports: COPD Hematological: Reports: None Gastrointestinal: Reports: None Genitourinary: Reports: None Neuro/Psych: Reports: None Musculoskeletal: Reports: None Cancer: Reports: None Last Menstrual Period: HYSTERECTOMY - Surgical History General Surgical History: Reports: None - Family History Family History: Reports: None - Social History Smoking Status: Current some day smoker Hx Substance Use: No Alcohol Screening: None - Immunizations Tetanus Shot up to Date: Yes Physical Exam - Physical Exam Appearance: Ill-appearing, Obese Ill-appearing: Mild Pain Distress: Moderate Eyes: GUIDO, EOMI, Conjunctiva clear ENT: Ears normal, Nose normal, Oropharynx normal Neck: Supple Respiratory: Airway patent, Breath sounds clear, Breath sounds equal, Respirations nonlabored Cardiovascular: RRR, Pulses normal, No rub, No murmur GI/: Soft, Nontender, No masses, Bowel sounds normal, No Organomegaly Musculoskeletal: Normal strength, ROM intact, No edema, No calf tenderness Skin: Warm, Dry, Normal color Neurological: Sensation intact, Motor intact, Reflexes intact, Cranial nerves intact, Alert, Oriented Psychiatric: Affect appropriate (Flattened affect), Mood appropriate, Anxious Physician Notification - Case Discussed Physician Notified: Dr Tesfaye Time of Notification: 13:25 (Discussed case and agreed for admission ) Critical Care Note - Critical Care Note Total Time (mins): 60 Course - Course Hematology/Chemistry: 08/10/18 12:00 08/10/18 12:00 Orders, Labs, Meds: Lab Review 08/10/18 08/10/18 08/10/18 12:00 12:00 12:45 WBC 8.41 RBC 4.41 Hgb 13.4 Hct 37.5 MCV 85.0 MCH 30.4 MCHC 35.7 H RDW Coeff of [place] 12.2 Plt Count 299 Immature Gran % (Auto) 1.1 Neut % (Auto) 67.1 Lymph % (Auto) 22.8 [place] % (Auto) 7.8 Eos % (Auto) 0.6 Baso % (Auto) 0.6 Immature Gran # (Auto) 0.1 Neut # (Auto) 5.6 Lymph # (Auto) 1.9 [place] # (Auto) 0.7 Eos # (Auto) 0.1 Baso # (Auto) 0.1 ESR 10 Sodium 125.9 L Potassium 4.01 Chloride 89.9 L Carbon Dioxide 26.4 Anion Gap 13.61 BUN 14.6 Creatinine 0.95 Estimated GFR (MDRD) 58.00 BUN/Creatinine Ratio 15.36 Glucose 142.3 H Calcium 9.60 Total Bilirubin 1.27 AST 15.9 ALT 16.9 Alkaline Phosphatase 96.7 Total Protein 7.54 Albumin 4.64 Globulin 2.90 Albumin/Globulin Ratio 1.60 Urine Color Yellow Urine Clarity Cloudy Urine pH 6.0 Ur Specific [place] 1.020 Urine Protein Negative Urine Glucose (UA) 2+ Urine Ketones Negative Urine Blood Negative Urine Nitrite Negative Urine Bilirubin Negative Urine Urobilinogen 1.0 Ur Leukocyte Esterase Negative Ur Squamous Epith Cells 30-50 Orders Category Date Time Status IV [ED IV/MEDIPORT/POWERPORT] .ONCE EMERGENCY 08/10/18 13:33 Active CBC W/ AUTO DIFF Stat LAB 08/10/18 12:00 Completed CMP [COMPREHENSIVE METABOLIC PANEL] Stat LAB 08/10/18 12:00 Completed ESR Stat LAB 08/10/18 12:00 Completed UA [URINALYSIS C & S IF INDICATED] Stat LAB 08/10/18 12:45 Completed 0.9 % Sodium Chloride [Saline Flush] MEDS 08/10/18 13:34 Active 1 syr IVF PRN PRN Hydrocodone Bit/Acetaminophen [[place] 10-325] MEDS 08/10/18 13:36 Discontinued 1 tab PO ONCE STA Methylprednisolone Sod Succ/Pf [Solu-Medrol 125 mg] MEDS 08/10/18 13:34 Discontinued 125 mg IVP ONCE STA CHEST, 2 VIEWS PA & LAT Stat RADS 08/10/18 11:[address] LUMBAR SPINE W/O CONTRAST Stat RADS 08/10/18 11:[address] PELVIS W/O CONTRAST Stat RADS 08/10/18 11:54 Completed Medications Generic Name Dose Route Start Last Admin Trade Name Freq PRN Reason Stop Dose Admin Hydrocodone Bitart/Acetaminophen 1 tab 08/10/18 17:00 [place] 10-325 PO QID [facility] Alprazolam 0.25 mg 08/10/18 15:00 Xanax PO TID [facility] Aspirin 81 mg 08/11/18 08:00 Aspirin Chewable PO DAILYWM [facility] Cefdinir 300 mg 08/10/18 21:00 Omnicef PO Q12HR [facility] Cholecalciferol 1,000 unit 08/11/18 09:00 Vitamin D PO DAILY [facility] Fish Oil 1,000 mg 08/11/18 09:00 [place]-3 Fish Oil PO DAILY [facility] Hydrochlorothiazide 12.5 mg 08/11/18 09:00 Hydrochlorothiazide PO DAILY [facility] Sodium Chloride 1,000 mls @ 100 mls/hr 08/10/18 15:03 Sodium Chloride IV .Q10H [facility] Ketorolac Tromethamine 30 mg 08/10/18 14:56 Toradol IVP Q8H PRN MODERATE PAIN Levalbuterol HCl 1 vial 08/10/18 20:00 Xopenex 1.25 Mg NEB RTTID [facility] Losartan Potassium 100 mg 08/11/18 09:00 Cozaar PO DAILY [facility] Lovastatin 40 mg 08/11/18 17:30 Mevacor PO 1730 [facility] Non-Formulary Medication 1 each 08/11/18 09:00 Levomefolate/Algal Oil [[place]-Algal Oil 7.5 Mg Cap] PO DAILY [facility] Ondansetron HCl 4 mg 08/10/18 15:01 Zofran Tab PO DAILY PRN Nausea / Vomiting Sodium Chloride 1 syr 08/10/18 13:34 08/10/18 13:52 Saline Flush IVF 1 syr PRN PRN Administration To flush IV Discontinued Medications Generic Name Dose Route Start Last Admin Trade Name Freq PRN Reason Stop Dose Admin Hydrocodone Bitart/Acetaminophen 1 tab 08/10/18 13:36 08/10/18 13:48 [place] 10-325 PO 08/10/18 13:37 Not Given ONCE STA Sodium Chloride 1,000 mls @ 75 mls/hr 08/10/18 14:30 08/10/18 14:14 Sodium Chloride IV 75 mls/hr .[id number] NAMAN Administration Methylprednisolone Sodium Succinate 125 mg 08/10/18 13:34 08/10/18 13:51 Solu-Medrol 125 Mg IVP 08/10/18 13:35 125 mg ONCE STA Administration Vital Signs: Temp Pulse Resp BP Pulse Ox 08/10/18 11:07 98.0 F 97 H 18 122/85 98 Departure - Departure Time of Disposition: 13:25 (Discussed with Dr Tesfaye who agrees with admisson for hydration and correction of serum sodium level) Disposition: ADMITTED INPATIENT Discharge Problem: Acute hyponatremia, Hip pain, bilateral, Greater trochanteric bursitis Condition: Good Pt referred to PMD for follow-up: Yes (dr tesfaye) [facility] verified?: No Allergies/Adverse Reactions: Allergies simvastatin [From Zocor] Allergy (Mild, Verified 08/10/18 11:10) Rash atorvastatin [From Lipitor] Adverse Reaction (Mild, Verified 08/10/18 11:10) muscle pain rosuvastatin [From Crestor] Adverse Reaction (Mild, Verified 08/10/18 11:10) muscle pain Home Medications: Ambulatory Orders Aspirin [Aspirin Chewable] 1 tab PO DAILYWM 08/30/13 Lovastatin [Mevacor] 40 mg PO DAILY 08/30/13 Cholecalciferol (Vitamin D3) [Vitamin D3] 1,000 unit PO DAILY 01/06/18 [place]-3 Fatty Acids/Fish Oil [Fish Oil 1,000 mg Capsule] 1 each PO DAILY Albuterol Sulfate 0.083% Neb [Albuterol 0.083% Neb] 1 vial NEB QID #120 vial.neb 01/11/18 Amlodipine Besylate [Norvasc] 5 mg PO DAILY #30 tablet 01/11/18 Losartan/Hydrochlorothiazide [Hyzaar 100-12.5 Tablet] 1 each PO DAILY #30 tablet 01/11/18 Hydrocodone/Acetaminophen [[place] 10-325 Tablet] 1 tab PO QID 02/05/18 Alprazolam [Xanax] 0.25 mg PO TID 06/11/18 Levomefolate/Algal Oil [[place]-Algal Oil 7.5 mg Cap] 1 each PO DAILY 06/11/18 Ondansetron HCl [Zofran] 4 mg PO DAILY PRN 07/06/18 Cefdinir [Omnicef] 300 mg PO Q12HR #14 capsule 07/10/18 Disposition Discussed With: Patient
--- NOTE | 2018-08-10 12:35 | DI ---
EXAM: Two views of the chest. History: Chronic obstructive pulmonary disease and wheezing Comparison: Chest radiograph 07/06/2018, chest CT 06/11/2018 Findings: Heart size is upper limits of normal. No focal consolidation. No appreciable pleural flu id and no pneumothorax. No acute osseous abnormalities. Degenerative changes of the lower thoracic spine are moderate to severe. Impression: No acute cardiopulmonary process
--- NOTE | 2018-08-10 12:40 | CT ---
EXAM: CT of the pelvis without contrast History: Pelvic pain. Comparison: CT abdomen pelvis 12/17/2015 Technique: Multiplanar CT images through the pelvis were obtained without the administration of IV c ontrast Findings: No bladder wall thickening. No pelvic fluid. Uterus is not seen and likely has been surg ically removed. Atherosclerotic vascular calcifications. No pelvic lymphadenopathy. No dilated loo ps of bowel are seen. No acute fracture or dislocation. Degenerative changes seen within the lower lumbar spine. Chondroc alcinosis seen within both hip joints and involving the pubic symphysis. Mild to moderate narrowing of bilateral hip joints with no significant osteophyte formation. Enthesiopathy of the bilateral gre ater trochanters. Surrounding soft tissues demonstrate no acute findings. Bilateral sacroiliac join ts are intact. Impression: 1. No acute osseous abnormality. 2. Chondrocalcinosis of bilateral hip joints and involving the pubic symphysis. 3. Mild to moderate arthritis of bilateral hip joints
--- NOTE | 2018-08-10 12:45 | CT ---
EXAM: CT LUMBAR SPINE HISTORY: Back pain TECHNIQUE: CT lumbar spine without contrast. 3-mm axial sections. Coronal and sagittal reformation s. COMPARISON: 01/30/2014 FINDINGS: General bone density is decreased. There is mild scoliosis convex to the left. Sacroiliac joints re veal early arthropathy. There is diffuse degenerative disc and facet disease of the visualized spine which has noticeably worsened since the 2014 exam especially at the levels of T11/T12 and T12/L1. T here is currently about 3.4 mm of posterior spondylolisthesis of T12 on L1 which is new or more notic eable. There is subtle anterior spondylolisthesis of L4 on L5 by about 3 mm. The degenerative changes lead to multilevel central canal and neural foraminal stenosis most apparent at L3/L4 where there is broad-based disc bulging, severe facet arthropathy and ligamentum flavum hyp ertrophy leading to severe central canal stenosis and mild to moderate bilateral neural foraminal grace rowing. At L4/L5, these same entities lead to severe central canal stenosis and probable moderate bi lateral neural foraminal narrowing, greater on the left. At L5/S1, there is posterior osteophytic sp urring leading to focal central stenosis. There is disc bulging and facet arthropathy on the left at this level leading to mild to moderate neural foraminal narrowing. Suggestion of significant centra l canal stenosis at T10/T11 although the level was not completely included on this exam. There is no paraspinal fluid collection identified. Incidental findings include atherosclerotic disease. IMPRESSION: Diffuse degenerative disc and facet disease which has significantly worsened since previo us exam. The levels which appear to be most affected are L3/L4 and L4/L5 where there is severe centr al canal stenosis appear
[2018-08-10] MEDS ORDERED: SODIUM CHLORIDE 500 ML IV STA (13:34)
[2018-08-10] MEDS ORDERED: SOLU-MEDROL 125 MG IVP STA (13:34)
[2018-08-10] MEDS ORDERED: NORCO 10-325 PO STA (13:36)
[2018-08-10 14:29] VITALS: BMI 35.7
[2018-08-10] MEDS ORDERED: SODIUM CHLORIDE 1,000 ML IV SCH ×2 (14:30→16:00)
[2018-08-10] MEDS ORDERED: ZOFRAN TAB PO PRN (15:01)
[2018-08-10] MEDS: XANAX PO SCH ×2 (15:38→20:51)
[2018-08-10] MEDS: SODIUM CHLORIDE 1,000 ML IV SCH (15:39)
[2018-08-10] MEDS: NORCO 10-325 PO SCH ×2 (16:39→20:50)
[2018-08-10] MEDS: SOLU-MEDROL 125 MG IVP SCH (20:51)
[2018-08-10] MEDS ORDERED: OMNICEF PO SCH (21:00)
[2018-08-10] MEDS: XOPENEX 1.25 MG NEB SCH (22:40)
[2018-08-11] MEDS: SODIUM CHLORIDE 1,000 ML IV SCH ×3 (02:00→20:02)
[2018-08-11] MEDS: SOLU-MEDROL 125 MG IVP SCH ×3 (04:37→21:08)
[2018-08-11] MEDS: XOPENEX 1.25 MG NEB SCH ×3 (04:40→19:45)
[2018-08-11] MEDS: TORADOL IVP PRN ×2 (06:29→21:08)
--- NOTE | 2018-08-11 08:30 | PCM.PROG ---
Attending Provider: ATTENDING PROVIDER: Dr. SHIRA DIAZ DATE OF SERVICE: 08/11/18 SUBJECTIVE: This 73 year old WHITE/ F was hospitalized 08/10/18. The patient is resting comfortably. She still has generalized pain. She has very many nonspecific complaints. Sodium slightly better at 127. She is eating well. Toradol is helping. REVIEW OF SYSTEMS: CONSTITUTIONAL: No night sweats. No fatigue, malaise, lethargy. No fever or chills. HEENT: Eyes: No visual changes. No eye pain. No eye discharge. ENT: No runny nose. No epistaxis. No sinus pain. No odynophagia. No congestion. RESPIRATORY: Cough. No congestion. No hemoptysis. No shortness of breath. CARDIOVASCULAR: No angina symptoms. No CHF symptoms. No atypical chest pain for CAD. No palpitations. No orthopnea.. GASTROINTESTINAL: No abdominal pain. No nausea or vomiting. No diarrhea or constipation. No hematemesis. No hematochezia. GENITOURINARY: No urgency. No frequency. No dysuria. No hematuria. No obstructive symptoms. No discharge. No pain. No significant abnormal bleeding. MUSCULOSKELETAL: Generalized pain. NEUROLOGICAL: Awake, alert, oriented to time, place and person. No headache. No neck pain. No syncope. No seizures. No dizziness. PSYCHIATRIC: Anxiety. No depression. No suicidal thoughts. No homicidal thoughts. SKIN: No rash. No lesions. No wounds. ENDOCRINE: No unexplained weight loss. No weight gain. HEMATOLOGIC/LYMPHATIC: No anemia. No purpura. No petechiae. No prolonged or excessive bleeding. No palpable lymph nodes. PHYSICAL EXAMINATION: GENERAL: The patient is awake, alert and oriented, lying in bed in no distress. VITAL SIGNS: Temperature 98.8 F, Pulse 81, Respiratory Rate 20, BP 140/78, Pulse Ox 95% HEENT: Head normocephalic, atraumatic. Eyes: Extraocular muscles are intact. Pupils are equal, round and reactive to light and accommodation. Ears: No lesions. Nose appeared normal. Throat: No exudate or erythema. NECK: Supple. No JVD, no carotid bruit. No lymphadenopathy or thyromegaly. LUNGS: Diminished breath sounds. Clear to auscultation. Percussion note normal. Chest symmetrical. HEART: S1, S2, no S3. No murmurs. No cyanosis or clubbing. No ascites. Pulses: Dorsalis pedis and posterior tibial pulses +1 to +2 both sides. ABDOMEN: Soft. Non-tender. Bowel sounds active. No CVA tenderness. No mass felt. EXTREMITIES: Trace leg edema. Full range of motion of all extremities, equal. NEUROLOGIC: No focal deficit. Cranial nerves II through XII are grossly intact. No headache, no double vision or headache. SKIN: Warm and dry. Intact. Turgor-normal. LYMPHATIC: No palpable lymph nodes/no lymphedema. MUSCULOSKELETAL: Normal joints with no swelling. Muscle tone is normal. LAB REVIEW: 08/11/18 04:20 08/11/18 04:20 08/11/18 04:20: Sodium 126.9 L, Potassium 4.65, Chloride 97.8 L, Carbon Dioxide 22.0, Anion Gap 11.75, BUN 20.9 H, Creatinine 0.86, Estimated GFR (MDRD) 65.00, BUN/Creatinine Ratio 24.30, Glucose 202.2 H D, Calcium 9.29, Total Bilirubin 0.99, AST 16.2, ALT 17.1, Alkaline Phosphatase 88.1, Total Protein 6.98, Albumin 4.21, Globulin 2.77, Albumin/Globulin Ratio 1.51 08/11/18 04:20: WBC 5.97, RBC 4.07 L, Hgb 12.3, Hct 34.4 L, MCV 84.5, MCH 30.2, MCHC 35.8 H, RDW Coeff of [place] 12.0, Plt Count 282, Immature Gran % (Auto) 2.0, Neut % (Auto) 80.6, Lymph % (Auto) 15.4, [place] % (Auto) 1.5, Eos % (Auto) 0.0, Baso % (Auto) 0.5, Immature Gran # (Auto) 0.1, Neut # (Auto) 4.8, Lymph # (Auto ) 0.9, [place] # (Auto) 0.1 L, Eos # (Auto) 0.0, Baso # (Auto) 0.0 08/10/18 12:45: Urine Color Yellow, Urine Clarity Cloudy, Urine pH 6.0, Ur Specific [place] 1.020, Urine Protein Negative, Urine Glucose (UA) 2+, Urine Ketones Negative, Urine Blood Negative, Urine Nitrite Negative, Urine Bilirubin Negative, Urine Urobilinogen 1.0, Ur Leukocyte Esterase Negative, Ur Squamous Epith Cells 30-50 08/10/18 12:00: Sodium 125.9 L, Potassium 4.01, Chloride 89.9 L, Carbon Dioxide 26.4, Anion Gap 13.61, BUN 14.6, Creatinine 0.95, Estimated GFR (MDRD) 58.00, BUN/Creatinine Ratio 15.36, Glucose 142.3 H, Calcium 9.60, Total Bilirubin 1.27 , AST 15.9, ALT 16.9, Alkaline Phosphatase 96.7, Total Protein 7.54, Albumin 4.64, Globulin 2.90, Albumin/Globulin Ratio 1.60 08/10/18 12:00: WBC 8.41, RBC 4.41, Hgb 13.4, Hct 37.5, MCV 85.0, MCH 30.4, MCHC 35.7 H, RDW Coeff of [place] 12.2, Plt Count 299, Immature Gran % (Auto) 1.1, Neut % (Auto) 67.1, Lymph % (Auto) 22.8, [place] % (Auto) 7.8, Eos % (Auto) 0.6, Baso % (Auto) 0.6, Immature Gran # (Auto) 0.1, Neut # (Auto) 5.6, Lymph # (Auto ) 1.9, [place] # (Auto) 0.7, Eos # (Auto) 0.1, Baso # (Auto) 0.1, ESR 10 ASSESSMENT: 1. Hyponatremia 2. COPD 3. Anxiety, depression 4. Right hip pain PLAN: 1. Continue IV steroids 2. Toradol p.r.n. 3. Will continue IV fluids for hyponatremia Plan and coordination of the patient's care discussed in the presence of Construction Area Manager and nurse. CONDITION: Stable SCRIBED BY: KATHY HAILE, Director Of Market Intelligence scribed while in presence of service performed by Dr. SHIRA DIAZ on 08/11/18 ([id number])
[2018-08-11] MEDS: ASPIRIN CHEWABLE PO SCH (08:52)
[2018-08-11] MEDS: HYDROCHLOROTHIAZIDE PO SCH (08:52)
[2018-08-11] MEDS: VITAMIN D PO SCH (08:53)
[2018-08-11] MEDS: COZAAR PO SCH (08:53)
[2018-08-11] MEDS: OMEGA-3 FISH OIL PO SCH (08:53)
[2018-08-11] MEDS: NORCO 10-325 PO SCH ×4 (08:53→21:10)
[2018-08-11] MEDS: NORVASC PO SCH (08:53)
[2018-08-11] MEDS: XANAX PO SCH ×3 (08:54→21:10)
[2018-08-11] MEDS ORDERED: NON-FORMULARY MEDICATION (Omega-3 Fatty Acids/Fish Oil [Fish Oil 1,000 Mg Capsule] 1 EACH) PO SCH (09:00)
[2018-08-11] MEDS ORDERED: NON-FORMULARY MEDICATION (Cholecalciferol (Vitamin D3) [Vitamin D3] 1,000 UNIT) PO SCH (09:00)
[2018-08-11] MEDS ORDERED: NON-FORMULARY MEDICATION (Losartan/Hydrochlorothiazide [Hyzaar 100-12.5 Tablet] 1 EACH) PO SCH (09:00)
[2018-08-11] MEDS: ALGAL OIL PO SCH (11:11)
[2018-08-11] MEDS: LEVOMEFOLATE PO SCH (11:11)
[2018-08-11] MEDS ORDERED: TOLTERODINE TARTRATE 4 MG PO SCH (14:45)
[2018-08-11] MEDS: DETROL LA PO SCH (15:42)
[2018-08-11] MEDS ORDERED: MEVACOR PO SCH (17:30)
[2018-08-12 04:45] VITALS: BP 152/79; TEMP 97.6
[2018-08-12] MEDS: SOLU-MEDROL 125 MG IVP SCH ×2 (04:45→12:30)
[2018-08-12] MEDS: XOPENEX 1.25 MG NEB SCH (05:20)
[2018-08-12] MEDS: SODIUM CHLORIDE 1,000 ML IV SCH ×2 (05:59→11:10)
[2018-08-12] MEDS: LEVOMEFOLATE PO SCH (08:23)
[2018-08-12] MEDS: ALGAL OIL PO SCH (08:23)
[2018-08-12] MEDS: ASPIRIN CHEWABLE PO SCH (08:23)
[2018-08-12] MEDS: OMEGA-3 FISH OIL PO SCH (08:23)
[2018-08-12] MEDS: HYDROCHLOROTHIAZIDE PO SCH (08:24)
[2018-08-12] MEDS: VITAMIN D PO SCH (08:24)
[2018-08-12] MEDS: NORCO 10-325 PO SCH ×2 (08:24→12:35)
[2018-08-12] MEDS: XANAX PO SCH (08:24)
[2018-08-12] MEDS: NORVASC PO SCH (08:24)
[2018-08-12] MEDS: DETROL LA PO SCH (08:24)
[2018-08-12] MEDS: COZAAR PO SCH (08:25)
--- NOTE | 2018-08-15 09:22 | HP ---
DATE OF SERVICE: 08/10/18 REASON FOR HOSPITALIZATION/HISTORY OF PRESENT ILLNESS: 73 year old white female who presented to the emergency room with low back and hip pain which had worsened over the past few days. She is coughing. PAST MEDICAL HISTORY: Anxiety Depression Dyslipidemia Hypertension COPD Long history of smoker Hypertension Leg edema PAST SURGICAL HISTORY: Hysterectomy REVIEW OF SYSTEMS: CONSTITUTIONAL: No night sweats. Fatigue. No fever or chills. HEENT: Eyes: No visual changes. No eye pain. No eye discharge. ENT: No runny nose. No epistaxis. No sinus pain. No sore throat. No odynophagia. No ear pain. No congestion. RESPIRATORY: Cough, no congestion. No hemoptysis. No shortness of breath. CARDIOVASCULAR: No angina symptoms. No CHF symptoms. No atypical chest pain for CAD. No palpitations. No PND. No orthopnea. GASTROINTESTINAL: No abdominal pain. No nausea or vomiting. No diarrhea or constipation. No hematemesis. No hematochezia. Loss of appetite. GENITOURINARY: No urgency. No frequency. No dysuria. No hematuria. No obstructive symptoms. No discharge. No pain. No significant abnormal bleeding. MUSCULOSKELETAL: No musculoskeletal pain. No joint swelling. No arthritis. Back pain. NEUROLOGICAL: No headache. No neck pain. No syncope. No seizures. No dizziness. PSYCHIATRIC: Not anxious. No depression. No suicidal thoughts. No homicidal thoughts. SKIN: No rash. No lesions. No wounds. ENDOCRINE: No unexplained weight loss. No weight gain. HEMATOLOGIC/LYMPHATIC: No anemia. No purpura. No petechiae. No prolonged or excessive bleeding. No palpable lymph nodes. PERSONAL/FAMILY/SOCIAL HISTORY: She is a current heavy smoker, no alcohol or illicit drug use. MEDICATIONS: Mevacor 40mg PO daily Aspirin 81mg one tablet PO daily Fish oil 1,000mg one each PO [place] Vitamin D3 1,000 unit PO daily Albuterol 0.083% one vial NEB four times a day Norvasc 5mg PO daily Hyzaar 100-12.5m,g PO daily [place] 10-325mg one each PO four times a day Xanax 0.25mg Po three times a day [place]-Algal oil 7.5mg one PO daily Zofran 4mg PO daily PRN Omnicef 300mg PO Q 12 hours Tolterodine 4mg PO QAM ALLERGIES: Simvastatin Atorvastatin Rosuvastatin PHYSICAL EXAMINATION: GENERAL: The patient is alert and oriented. VITAL SIGNS: Temperature 98, heart rate 97, respiratory rate 18, blood pressure 122/85 and pulse ox 98%. HEENT: Head normocephalic, atraumatic. Eyes: Extraocular muscles are intact. Pupils are equal, round and reactive to light and accommodation. Ears: No lesions. Nose appeared normal. Throat: No exudate or erythema. NECK: Supple. No JVD, no carotid bruit. No lymphadenopathy or thyromegaly. LUNGS: Diminished breath sounds bilaterally. Clear to auscultation. Percussion note normal. Chest symmetrical. HEART: S1, S2, no S3. No murmurs. No cyanosis or clubbing. No ascites. Pulses: Dorsalis pedis and posterior tibial pulses +1 to +2 bilaterally. ABDOMEN: Soft. Nontender. Bowel sounds active. No mass felt. Tenderness to palpation bilateral hips over the trochanteric area. EXTREMITIES: No edema. Full range of motion of all extremities, equal. NEUROLOGIC: No focal deficit. Cranial nerves II through XII are grossly intact. No headache, no double vision or headache. SKIN: Not dry. Intact. Turgor - normal. LYMPHATIC: No palpable lymph nodes/no lymphedema. MUSCULOSKELETAL: Normal joints with no swelling. Muscle tone is normal. LABS: WBC 8.41, hgb 13.4, hct 37.5, plt count 299, sodium 125, potassium 4.0, BUN 14 , creatinine 0.95, glucose 142, AST 15, ALT 16, Alkaline phosphatase 96, urine shows 2+ glucose otherwise negative ketones, negative blood, negative nitrates, negative leukocytes. ASSESSMENT: 1. Acute hyponatremia 2. Bilateral hip bursitis 3. Acute COPD exacerbation 4. Chronic COPD 5. Hypertension 6. Anxiety 7. Depression PLAN: 1. Admit 2. Routine telemetry orders 3. CBC and CMP daily 4. Normal saline IV at 100cc an hour 5. Chest x-ray 6. Regular diet 7. Continue all medications 8. X-rays in both hips 9. Toradol 30mg IV Q 8 hours PRN for pain 10.Oxygen at 1-2 liters as needed Will follow closely. TIME SPENT: More than 70 minutes. MTDD
--- NOTE | 2018-08-17 11:16 | PN ---
DATE OF SERVICE: 08/10/18 SUBJECTIVE: The patient was seen and examined in the room today. She was hospitalized through the emergency room with multiple complaints mostly nonspecific with generalized aches and pain, hips pains like burcitis type of pain. She also complained of fatigue, weakness and shortness of breath. The patient has continued to smoke heavy. She has a lot anxiety and problems at home. Further work up the patient was noted to have sodium of 125. The patient was then hospitalized with IV fluids with normal saline, restricting her oral intake. Her cardiovascular status is stable. PHYSICAL EXAMINATION: HEENT: Head normocephalic, atraumatic. Eyes: Extraocular muscles are intact. Pupils are equal, round and reactive to light and accommodation. Ears: No lesions. Nose appeared normal. Throat: No exudate or erythema. NECK: Supple. No JVD, no carotid bruit. No lymphadenopathy or thyromegaly. LUNGS:Decreased breath sounds with mild wheeze but good air entry. Clear to auscultation. Percussion note normal. Chest symmetrical. HEART: S1, S2, no S3. No murmurs. No cyanosis or clubbing. No ascites. Pulses: Dorsalis pedis and posterior tibial pulses +2 bilaterally. ABDOMEN: Soft. Nontender. Bowel sounds active. No CVA tenderness. No mass felt. EXTREMITIES: No edema. Full range of motion of all extremities, equal. Calf muscles normal. NEUROLOGIC: No focal deficit. Cranial nerves II through XII are grossly intact. No headache, no double vision or headache. SKIN: Not dry. Intact. Turgor - normal. LYMPHATIC: No palpable lymph nodes/no lymphedema. MUSCULOSKELETAL: Normal joints with no swelling. Muscle tone is normal. ASSESSMENT: 1. Hyponatremia 2. Dehydration 3. Generalized aches, pain, shortness of breath all related to anxiety, smoking , sedentary lifestyle and morbid obesity CONDITION: Stable. TIME SPENT: More than 30 minutes. Plan and coordination of the patient's care discussed in the presence of nurse. SUSAN
--- NOTE | 2018-08-17 11:21 | PN ---
DATE OF SERVICE: 08/11/18 SUBJECTIVE: The patient was seen and examined with Nurse Practitioner. The patient 's hyponatremia is better. She is feeling better. Her generalized pain is more like fibromyalgia and generalized osteoarthritis. A lot of nonspecific complaints and underline psychosomatic problems. She is heavy smoker. Counseling for smoking is done. She is morbidly obese. Counseling for weight loss done. PHYSICAL EXAMINATION: HEENT: Head normocephalic, atraumatic. Eyes: Extraocular muscles are intact. Pupils are equal, round and reactive to light and accommodation. Ears: No lesions. Nose appeared normal. Throat: No exudate or erythema. NECK: Supple. No JVD, no carotid bruit. No lymphadenopathy or thyromegaly. LUNGS: Clear to auscultation. Percussion note normal. Chest symmetrical. HEART: S1, S2, no S3. No murmurs. No cyanosis or clubbing. No ascites. Pulses: Dorsalis pedis and posterior tibial pulses +1 to +2 bilaterally. ABDOMEN: Soft. Nontender. Bowel sounds active. No CVA tenderness. No mass felt. EXTREMITIES: No edema. Full range of motion of all extremities, equal. NEUROLOGIC: No focal deficit. Cranial nerves II through XII are grossly intact. No headache, no double vision or headache. SKIN: Not dry. Intact. Turgor - normal. LYMPHATIC: No palpable lymph nodes/no lymphedema. MUSCULOSKELETAL: Normal joints with no swelling. Muscle tone is normal. ASSESSMENT: 1. Hyponatremia seems to be resolving, the patient's hyponatremia is because because she takes Thiazide everyday to get rid of the fluid dependent edema. I told her to keep the legs elevated and cut down salt intake. Also cut down on fluid intake, she drinks alot of fluids could be causing hyponatremia along with diuretic. 2. COPD with chronic lung disease, advised to quit smoking 3. Morbid obesity . 4. Hypertension The patient's other medical conditions are stable. TIME SPENT: More than 30 minutes. Plan and coordination of the patient's care discussed in the presence of nurse. SUSAN
--- NOTE | 2018-08-17 11:25 | PN ---
DATE OF SERVICE: 08/12/18 DISCHARGE NOTE SUBJECTIVE: The patient is up and about doing well. No chest pain, no PND, no orthopnea and no palpitation. Her vitals are stable. PHYSICAL EXAMINATION: HEENT: Head normocephalic, atraumatic. Eyes: Extraocular muscles are intact. Pupils are equal, round and reactive to light and accommodation. Ears: No lesions. Nose appeared normal. Throat: No exudate or erythema. NECK: Supple. No JVD, no carotid bruit. No lymphadenopathy or thyromegaly. LUNGS: Clear to auscultation. Percussion note normal. Chest symmetrical. HEART: S1, S2, no S3. No murmurs. No cyanosis or clubbing. No ascites. Pulses: Dorsalis pedis and posterior tibial pulses +1 to +2 bilaterally. ABDOMEN: Soft. Nontender. Bowel sounds active. No CVA tenderness. No mass felt. EXTREMITIES: No edema. Full range of motion of all extremities, equal. NEUROLOGIC: No focal deficit. Cranial nerves II through XII are grossly intact. No headache, no double vision or headache. SKIN: Not dry. Intact. Turgor - normal. LYMPHATIC: No palpable lymph nodes/no lymphedema. MUSCULOSKELETAL: Normal joints with no swelling. Muscle tone is normal. The patient's main problem is smoking heavy with COPD, Sedentary lifestyle and obesity with BMI Of 35. She has a lot of issues with her anxiety. No suicidal or homicidal ideas. She has good family support, the kids are helping her a lot. Sodium is normal. The patient is stable enough to be discharged. TIME SPENT: More than 30 minutes. Plan and coordination of the patient's care discussed in the presence of nurse. SUSAN
--- NOTE | 2018-08-17 13:35 | DS ---
DATE OF SERVICE: 08/12/18 FINAL DIAGNOSIS: 1. Hyponatremia 2. Dehydration 3. Generalized anxiety disorder 4. Chronic lung disease 5. History of smoking 6. Hypertension 7. Dyslipidemia 8. Obesity DISCHARGE INSTRUCTIONS: Discharge home today. Followup on TuesdayAugust 15 in the office. Please call Tuesday for appointment time. Resume home medication as per the medication list. MEDICATIONS AT DISCHARGE: Aspirin Lovastatin NEBS Losartan/Hydrochlorothiazide Hydrocodone Xanax DISCONTINUED MEDICATION: Amlodipine NEW PRESCRIPTIONS: Cardizem 60mg twice a day Cipro 250mg twice a day for 7 days. DIET INSTRUCTIONS: Regular ACTIVITY: As tolerated SMOKING: Educated about smoking cessation DISEASE SPECIFIC EDUCATION: Medications Appointment Smoking HOSPITAL COURSE: 73 year old white female hospitalized through the emergency room with multiple nonspecific complaints. The patient was noted to have hyponatremia with sodium of 125. She drinks a lot of fluids, compulsive water drinker and on top of that she continued to take Thiazide which was given to her for leg swelling on the side to be taken once or twice a week instead of that she has been taking every day. The patient was given normal saline. Her sodium at the time of discharge was approximately 131, potassium was normal, creatinine and BUN are normal. The patient's blood sugar is high. She had an A1c done. The patient is obese and she is advised to lose weight. The patient's Norvasc was discontinued and she put on Cardizem because of sinus tachycardia, lung problems. It may help better than Norvasc. Solu-Medrol was given through the hospital because of bronchitis type of symptoms. It is more like an allergy bronchitis. The blood sugar probably was high because of steroids. The patient is advised to lose weight and advised to do exercise. She is advised to join pulmonary rehab, advised to quit smoking and counseling for smoking was done. The patient has a lot of anxiety at home related to her family life. Repeated hospitalization has one common factor and that is what it is. CONDITION: Stable. PROGNOSIS: Guarded. TIME SPENT: More than 60 minutes. SUSAN
--- NOTE | 2018-08-17 13:36 | PN ---
08/10/18: Level 5 08/11/18: intermediate 08/12/18: D as in discharge MTDD
== END 2018-08-12 13:15 | disposition home or self-care (01) | DRG 641 ==
LOC: ED 11:07 → MEDSURG B 13:40
PROVIDERS: ADMIT Internal Medicine; ATTEND Internal Medicine
DX: E87.1 Hypo-osmolality and hyponatremia (principal); J44.1 Chronic obstructive pulmonary disease with (acute) exacerbation; J98.4 Other disorders of lung; I10 Essential (primary) hypertension; M25.551 Pain in right hip; M70.60 Trochanteric bursitis, unspecified hip; E86.0 Dehydration; E78.5 Hyperlipidemia, unspecified; E66.9 Obesity, unspecified; F41.8 Other specified anxiety disorders; R53.1 Weakness; R42 Dizziness and giddiness; R63.0 Anorexia; R06.02 Shortness of breath; R06.2 Wheezing; Z68.35 Body mass index [BMI] 35.0-35.9, adult; Z72.0 Tobacco use
CPT/HCPCS: 36415; 80053; 81001; 83036; 85025; 85651; 87081; 93005; 93010; 94640; 96374; 96375; 99223; 99232; 99239; 99283

== ENCOUNTER 2018-08-29 14:06 | Outpatient (POV) | payer OTHER | END 2018-08-29 17:00 | LOC: OUTPT 14:06 | PROVIDERS: ATTEND Otolaryngology | DX: H91.90 Unspecified hearing loss, unspecified ear (principal) | CPT/HCPCS: 92557; 92567 ==

== ENCOUNTER 2019-01-27 13:34 | Emergency (ER) ==
[2019-01-27 13:40] VITALS: TEMP 98.8; BMI 35.4
[2019-01-27] MEDS ORDERED: LACTATED RINGERS 1,000 ML IV STA (14:01)
--- NOTE | 2019-01-27 14:05 | ED.PDOC ---
General ED Provider: Dr. SEKOU GOLDBERG Chief Complaint: Shortness of Air Stated Complaint: 3 day history of shortness of breath. Was seen last week in the clinic for complaints of Urinary symptoms given cipro. did not mention about shortness of breath. Time Seen by Physician: 14:04 Mode of Arrival: Wheelchair Information Source: Patient Exam Limitations: No limitations Primary Care Provider: SHIRA DIAZ Nursing and Triage Documentation Reviewed and Agree: Yes Does patient meet sepsis criteria?: No System Inflammatory Response Syndrome: Not Applicable Sepsis Protocol: For patient's 13 years and over: Temp is 96.8 and below OR 101 and greater Pulse >90 BPM Resp >20/minute Acutely Altered Mental Status Are patient's symptoms suggestive of a new infection, such as: -Pneumonia -Skin, Soft Tissue -Endocarditis -UTI -Bone, Joint Infection -Implantable Device -Acute Abdominal Infection -Wound Infection -Meningitis -Blood Stream Catheter Infection -Unknown Respiratory Complaint Exam - Respiratory Complaint/Exam Onset/Duration: 3 days Symptoms Are: Still present Timing: Constant Initial Severity: Mild Current Severity: Moderate Location: Chest Character: Reports: Productive cough Aggravating: Reports: URI, Passive smoke exposure, Weather Alleviating: Reports: Bronchodilators Associated Signs and Symptoms: Reports: Dyspnea, URI. Denies: Fever, Chills, Chest pain, Pleuritic chest pain, Wheezing, Hemoptysis, Dizziness, Calf pain, Calf swelling, Edema, Nasal congestion, Hoarseness, Sinus discomfort, Vomiting, Sore throat, Weight loss, Decreased oral intake, Increased thirst, Increased appetite, Increased urination History of Healthcare-Acquired Pneumonia: No Related Surgical History: Reports: None Pulmonary Embolism Risk Factors: None Cardiac Risk Factors: Reports: Smoking Pseudomonas Risk Factors: Reports: Chronic Lung Disease Tuberculosis Risk Factors: Reports: None Home Oxygen Use: No Recent Stress Test: No Recent Echo/LV Function: No Current Antibiotic Use: Yes (Cipro- treatment for UTI in the clinic recently ) Current Asthma Medication Use: Yes Respiratory Distress: Mild Inadequate Respiratory Effort: No Dysphagia Present: No Stridor Present: No JVD Present: No Accessory Muscle Use: No Retractions: Not Present Diminished Breath Sounds: Yes Sinus Tenderness: None Grunting Respirations: No Kussmaul Respirations: No Differential Diagnoses: COPD Exacerbation, Bronchitis, Bronchospasm, URI Non-Traumatic Chest Pain Syncope: EKG Performed Review of Systems - Review Of Systems Constitutional: Reports: No symptoms Eyes: Reports: No symptoms Ears, Nose, Mouth, Throat: Reports: No symptoms Respiratory: Reports: Short of air, Wheezing Cardiac: Reports: No symptoms GI: Reports: No symptoms : Reports: No symptoms Musculoskeletal: Reports: No symptoms Skin: Reports: No symptoms Neurological: Reports: No symptoms Endocrine: Reports: No symptoms Hematologic/Lymphatic: Reports: No symptoms All Other Systems: Reviewed and Negative Past Medical History - Past Medical History Previously Healthy: No Endocrine: Reports: Dyslipidemia Cardiovascular: Reports: Hypertension Respiratory: Reports: COPD Hematological: Reports: None Gastrointestinal: Reports: None Genitourinary: Reports: None Neuro/Psych: Reports: None Musculoskeletal: Reports: None Cancer: Reports: None Last Menstrual Period: n/a - Surgical History General Surgical History: Reports: None - Family History Family History: Reports: None - Social History Smoking Status: Current every day smoker Hx Substance Use: No Alcohol Screening: None Physical Exam - Physical Exam Appearance: Well-appearing Ill-appearing: Mild Pain Distress: None Eyes: GUIDO, EOMI, Conjunctiva clear Neck: Supple Respiratory: Breath sounds diminished Cardiovascular: RRR, Pulses normal, No rub, No murmur GI/: Soft, Nontender, No masses, Bowel sounds normal, No Organomegaly Musculoskeletal: Normal strength, ROM intact, No edema, No calf tenderness Skin: Warm, Dry, Normal color Neurological: Sensation intact, Motor intact, Cranial nerves intact (except hard of hearing ), Alert, Oriented Psychiatric: Anxious Interpretation - Radiology Interpretation Radiology Interpretation By: Radiologist Radiology Results: No acute changes Exam Interpreted: CXR Re-Evaluation - Re-Evaluation Time of Re-Evaluation: 16:32 Status: Improved (Breathing better. ) Appearance: NAD Lungs: Clear Critical Care Note - Critical Care Note Total Time (mins): 35 Course - Course Hematology/Chemistry: 01/27/19 14:28 01/27/19 14:28 Orders, Labs, Meds: Lab Review 01/27/19 01/27/19 01/27/19 14:10 14:28 14:28 WBC 8.52 RBC 4.67 Hgb 14.2 Hct 40.7 MCV 87.2 MCH 30.4 MCHC 34.9 RDW Coeff of Sharon 12.9 Plt Count 262 Immature Gran % (Auto) 0.6 Neut % (Auto) 60.7 Lymph % (Auto) 28.3 Warrick % (Auto) 8.5 Eos % (Auto) 1.4 Baso % (Auto) 0.5 Immature Gran # (Auto) 0.1 Neut # (Auto) 5.2 Lymph # (Auto) 2.4 Warrick # (Auto) 0.7 Eos # (Auto) 0.1 Baso # (Auto) 0.0 Sodium 130.0 L Potassium 4.05 Chloride 93.6 L Carbon Dioxide 24.2 Anion Gap 16.25 BUN 11.4 Creatinine 0.80 Estimated GFR (MDRD) 71.00 BUN/Creatinine Ratio 14.25 Glucose 110.4 H Lactic Acid Calcium 9.24 Total Bilirubin 1.07 AST 20.7 ALT 13.8 Alkaline Phosphatase 94.6 Total Protein 7.48 Albumin 4.46 Globulin 3.02 Albumin/Globulin Ratio 1.47 Procalcitonin Urine Color Yellow Urine Clarity Slightly Urine pH 7.0 Ur Specific [place] 1.015 Urine Protein Trace Urine Glucose (UA) Negative Urine Ketones Negative Urine Blood Negative Urine Nitrite Negative Urine Bilirubin Negative Urine Urobilinogen 2.0 Ur Leukocyte Esterase Negative Urine Microscopic WBC 2-5 Ur Squamous Epith Cells 30-50 01/27/19 01/27/19 14:28 14:28 WBC RBC Hgb Hct MCV MCH MCHC RDW Coeff of Sharon Plt Count Immature Gran % (Auto) Neut % (Auto) Lymph % (Auto) Warrick % (Auto) Eos % (Auto) Baso % (Auto) Immature Gran # (Auto) Neut # (Auto) Lymph # (Auto) Warrick # (Auto) Eos # (Auto) Baso # (Auto) Sodium Potassium Chloride Carbon Dioxide Anion Gap BUN Creatinine Estimated GFR (MDRD) BUN/Creatinine Ratio Glucose Lactic Acid 0.76 Calcium Total Bilirubin AST ALT Alkaline Phosphatase Total Protein Albumin Globulin Albumin/Globulin Ratio Procalcitonin < 0.05 Urine Color Urine Clarity Urine pH Ur Specific [place] Urine Protein Urine Glucose (UA) Urine Ketones Urine Blood Urine Nitrite Urine Bilirubin Urine Urobilinogen Ur Leukocyte Esterase Urine Microscopic WBC Ur Squamous Epith Cells Orders Category Date Time Status EKG-(ED ONLY) Stat CARDIO 01/27/19 14:01 Completed NEBULIZER TREATMENT Stat CARDIO 01/27/19 14:50 Completed ED APPLY O2 .ONCE EMERGENCY 01/27/19 14:01 Active ED CHRONOMETER REPAIRER APPLIED .ONCE EMERGENCY 01/27/19 14:01 Active ED IV/MEDIPORT/POWERPORT .ONCE EMERGENCY 01/27/19 14:01 Active ED VITAL SIGNS Q1HR EMERGENCY 01/27/19 14:01 Active BLOOD CULTURE (ED ONLY) Stat LAB 01/27/19 15:25 Received CBC W/ AUTO DIFF Stat LAB 01/27/19 14:28 Completed COMPREHENSIVE METABOLIC PANEL Stat LAB 01/27/19 14:28 Completed LACTIC ACID Stat LAB 01/27/19 14:28 Completed PROCALCITONIN Stat LAB 01/27/19 14:28 Completed URINALYSIS C & S IF INDICATED Stat LAB 01/27/19 14:10 Completed 0.9 % Sodium Chloride [Saline Flush] MEDS 01/27/19 14:01 Ordered 1 syr IVF PRN PRN Ipratropium/Albuterol Neb [Duoneb] MEDS 01/27/19 14:52 Discontinued 1 vial NEB .STK-MED ONE Ipratropium/Albuterol Neb [Duoneb] MEDS 01/27/19 14:50 Discontinued 1 vial NEB ONCE STA Labetalol HCl [Trandate] MEDS 01/27/19 15:34 Discontinued 10 mg IVP ONCE STA Ringers Lactated Solution [Lactated Ringers] 1,000 ml MEDS 01/27/19 14:01 Discontinued IV BOLUS CHEST, 2 VIEWS PA & LAT Stat RADS 01/27/19 14:01 Completed Medications Generic Name Dose Route Start Last Admin Trade Name Freq PRN Reason Stop Dose Admin Sodium Chloride 1 syr 01/27/19 14:01 01/27/19 16:04 Saline Flush IVF 1 syr PRN PRN Administration To flush IV Discontinued Medications Generic Name Dose Route Start Last Admin Trade Name Freq PRN Reason Stop Dose Admin Albuterol/Ipratropium 1 vial 01/27/19 14:50 01/27/19 15:45 Duoneb NEB 01/27/19 14:51 Not Given ONCE STA Lactated Ringer's 1,000 mls @ 1,000 mls/hr 01/27/19 14:01 01/27/19 14:33 Lactated Ringers IV 01/27/19 15:00 1,000 mls/hr BOLUS STA Administration Labetalol HCl 10 mg 01/27/19 15:34 01/27/19 16:01 Trandate IVP 01/27/19 15:35 10 mg ONCE STA Administration Vital Signs: Temp Pulse Resp BP Pulse Ox 01/27/19 16:15 135/88 01/27/19 16:00 151/111 H 01/27/19 15:15 154/98 H 01/27/19 14:45 92 H 20 170/103 H 96 01/27/19 13:55 96 01/27/19 13:35 98.8 F 100 H 20 153/98 H 92 L Departure - Departure Time of Disposition: 16:32 Disposition: HOME SELF-CARE Discharge Problem: Chronic hyponatremia, Bronchitis, Hypertension Instructions: How to Stop Smoking (ED), Acute Bronchitis (ED), COPD (Chronic Obstructive Pulmonary Disease) (ED) Condition: Stable Pt referred to PMD for follow-up: Yes IPMP verified?: No Additional Instructions: Take medications as prescribed follow up with PCP in 3 days Prescriptions: Prednisone 20 mg PO DAILYWM #5 tablet Allergies/Adverse Reactions: Allergies simvastatin [From Zocor] Allergy (Mild, Verified 01/27/19 13:40) Rash atorvastatin [From Lipitor] Adverse Reaction (Mild, Verified 01/27/19 13:40) muscle pain rosuvastatin [From Crestor] Adverse Reaction (Mild, Verified 01/27/19 13:40) muscle pain Home Medications: Ambulatory Orders Lovastatin [Mevacor] 40 mg PO DAILY 08/30/13 Albuterol Sulfate 0.083% Neb [Albuterol 0.083% Neb] 1 vial NEB QID #120 vial.neb 01/11/18 Hydrocodone/Acetaminophen [Howard 10-325 Tablet] 1 tab PO QID 02/05/18 Diltiazem HCl [Diltiazem 12hr Er] 60 mg PO BID 08/29/18 Alprazolam [Xanax] 0.5 mg PO TID 08/31/18 Citalopram Hydrobromide [Celexa] 40 mg PO DAILY 01/27/19 Cyanocobalamin (Vitamin B-12) [Vitamin B-12] 1,000 mcg PO DAILY 01/27/19 Prednisone 20 mg PO DAILYWM #5 tablet 01/27/19
[2019-01-27] MEDS ORDERED: DUONEB NEB STA (14:50)
[2019-01-27] MEDS ORDERED: DUONEB NEB ONE (14:52)
--- NOTE | 2019-01-27 15:14 | DI ---
EXAM: Chest two views HISTORY: Shortness of breath COMPARISON: 08/10/2018 TECHNIQUE: Two views of the chest were performed FINDINGS: The lungs are clear. There is no pleural effusion or pneumothorax. The heart is top norm al in size. The mediastinal contour is normal. There are no acute abnormalities of the bones. IMPRESSION: No acute cardiopulmonary process.
[2019-01-27] MEDS ORDERED: TRANDATE IVP STA (15:34)
[2019-01-27 16:28] VITALS: BP 135/88
== END 2019-01-27 17:06 | disposition home or self-care (01) ==
LOC: ED 13:34
DX: J40 Bronchitis, not specified as acute or chronic (principal); I10 Essential (primary) hypertension; E87.1 Hypo-osmolality and hyponatremia; F17.210 Nicotine dependence, cigarettes, uncomplicated; R06.02 Shortness of breath; E78.5 Hyperlipidemia, unspecified; Z79.899 Other long term (current) drug therapy
CPT/HCPCS: 36415; 80053; 81001; 83605; 84145; 85025; 87040; 93005; 93010; 94640; 96361; 96374; 99283

== ENCOUNTER 2019-07-24 15:33 | Inpatient (IN) ==
--- NOTE | 2019-07-24 15:46 | ED.PDOC ---
General ED Provider: Dr. JENELLE FISHMAN Chief Complaint: Shortness of Air Stated Complaint: Dizziness and feeling poorly. Has been has been SOB. Denies Chest Pain Time Seen by Physician: 15:45 Mode of Arrival: Walk-In Information Source: Patient Exam Limitations: No limitations Primary Care Provider: SHIRA LACY Nursing and Triage Documentation Reviewed and Agree: Yes Does patient meet sepsis criteria?: No System Inflammatory Response Syndrome: Not Applicable Sepsis Protocol: For patient's 13 years and over: Temp is 96.8 and below OR 101 and greater Pulse >90 BPM Resp >20/minute Acutely Altered Mental Status Are patient's symptoms suggestive of a new infection, such as: -Pneumonia -Skin, Soft Tissue -Endocarditis -UTI -Bone, Joint Infection -Implantable Device -Acute Abdominal Infection -Wound Infection -Meningitis -Blood Stream Catheter Infection -Unknown Respiratory Complaint Exam Shortness of Air Complaint/Exam Onset/Duration: 1 hr Symptoms Are: Resolved Timing: Intermittent Initial Severity: Moderate Current Severity: Mild Character: Reports Dyspnea at rest and Dyspnea on exertion Aggravating: Reports Movement and Recumbent position Alleviating: Reports Bronchodilators and Upright position Associated Signs and Symptoms: Reports Wheezing and Dizziness Related History: Reports Similar episode Pulmonary Embolism Risk Factors: Reports None Cardiac Risk Factors: Reports Hypertension Pseudomonas Risk Factors: Reports None Tuberculosis Risk Factors: Reports None Home Oxygen Use: No Recent Stress Test: No Recent Echo/LV Function: No Respiratory Distress: None Stridor Present: No Tracheal Deviation: No Subcutaneous Emphysema: No Accessory Muscle Use: No Retractions: Not Present Diminished Breath Sounds: No Prolonged Expiratory Phase: No Unable to Speak Full Sentences: No Fatigue: Yes Leg Swelling: No Katy's Sign Present: No Grunting Respirations: No Kussmaul Respirations: No Differential Diagnoses: COPD Exacerbation, Pneumonia and Bronchospasm Quality Indicators for AMI: EKG in 10min. Review of Systems Review Of Systems Constitutional: Reports Weakness Eyes: Reports No symptoms Ears, Nose, Mouth, Throat: Reports No symptoms Respiratory: Reports Short of air and Wheezing Cardiac: Reports No symptoms GI: Reports No symptoms : Reports No symptoms Musculoskeletal: Reports No symptoms Skin: Reports No symptoms Neurological: Reports No symptoms Endocrine: Reports No symptoms Hematologic/Lymphatic: Reports No symptoms All Other Systems: Reviewed and Negative [facility], [facility] Social History Smoking and tobacco status: Current every day smoker History of recent travel: No Female Reproductive History Menstrual Hx Hysterectomy: Yes Hx Tubal Ligation: No Physical Exam Physical Exam Appearance: Ill-appearing, No pain distress and Obese Ill-appearing: Mild Pain Distress: Mild Eyes: GUIDO, EOMI and Conjunctiva clear ENT: Ears normal, Nose normal and Oropharynx normal Neck: Nonsupple Respiratory: Airway patent, Breath sounds clear and Breath sounds equal Cardiovascular: RRR and Pulses normal GI/: Soft, Nontender and No masses Musculoskeletal: Normal strength, ROM intact and No edema Skin: Warm, Dry and Normal color Neurological: Sensation intact, Motor intact and Reflexes intact Psychiatric: Affect appropriate Interpretation Radiology Interpretation Radiology Interpretation By: Radiologist Exam Interpreted: Portable CXR (WNL) EKG Interpretation Time of EKG #1: 16:02 Rate: Normal Rhythm: Sinus Ectopy: None [facility]: NL ST Segment: Normal Interpretation: NSR Physician Notification Case Discussed Physician Notified: Dr Lacy-agrees with Admisson due to profound dizziness Time of Notification: 18:41 Critical Care Note Critical Care Note Total Time (mins): 0 Course Course Hematology/Chemistry: 07/26/19 06:25 07/26/19 06:25 Orders, Labs, Meds: Lab Review 07/24/19 07/24/19 07/24/19 15:40 15:50 15:50 WBC 7.67 RBC 4.88 Hgb 15.0 Hct 42.6 MCV 87.3 MCH 30.7 MCHC 35.2 RDW Coeff of Sharon 12.7 Plt Count 282 Immature Gran % (Auto) 0.8 Neut % (Auto) 54.7 Lymph % (Auto) 32.6 Otoe % (Auto) 7.7 Eos % (Auto) 3.4 Baso % (Auto) 0.8 Immature Gran # (Auto) 0.1 Neut # (Auto) 4.2 Lymph # (Auto) 2.5 Otoe # (Auto) 0.6 Eos # (Auto) 0.3 Baso # (Auto) 0.1 Sodium 130.2 L Potassium 4.31 Chloride 96.9 L Carbon Dioxide 23.3 Anion Gap 14.31 BUN 17.1 H Creatinine 0.97 Estimated GFR (MDRD) 56.00 BUN/Creatinine Ratio 17.62 Glucose 149.4 H Calcium 9.70 Magnesium 1.84 Total Bilirubin 1.22 AST 18.9 ALT 13.2 Alkaline Phosphatase 115.5 Total Creatine Kinase 54.3 Troponin I < 0.012 Total Protein 7.75 Albumin 4.54 Globulin 3.21 Albumin/Globulin Ratio 1.41 Urine Color Urine Clarity Urine pH Ur Specific Gut[place] Urine Protein Urine Glucose (UA) Urine Ketones Urine Blood Urine Nitrite Urine Bilirubin Urine Urobilinogen Ur Leukocyte Esterase Influ A Molecular Assay Negative by naat Influ B Molecular Assay Negative by naat 07/24/19 18:11 WBC RBC Hgb Hct MCV MCH MCHC RDW Coeff of Sharon Plt Count Immature Gran % (Auto) Neut % (Auto) Lymph % (Auto) Otoe % (Auto) Eos % (Auto) Baso % (Auto) Immature Gran # (Auto) Neut # (Auto) Lymph # (Auto) O[place]e # (Auto) Eos # (Auto) Baso # (Auto) Sodium Potassium Chloride Carbon Dioxide Anion Gap BUN Creatinine Estimated GFR (MDRD) BUN/Creatinine Ratio Glucose Calcium Magnesium Total Bilirubin AST ALT Alkaline Phosphatase Total Creatine Kinase Troponin I Total Protein Albumin Globulin Albumin/Globulin Ratio Urine Color Yellow Urine Clarity Clear Urine pH 6.5 Ur Specific [place] 1.020 Urine Protein Negative Urine Glucose (UA) Negative Urine Ketones Negative Urine Blood Negative Urine Nitrite Negative Urine Bilirubin Negative Urine Urobilinogen 1.0 Ur Leukocyte Esterase Negative Influ A Molecular Assay Influ B Molecular Assay Orders Category Date Time Status ADMIT PATIENT INPATIENT .TO [facility] (MONITORED BED) ADMISSION 07/24/19 19:28 Active EKG-(ED ONLY) Stat CARDIO 07/24/19 15:41 Completed EKG-(IP & OP ONLY) Routine CARDIO 07/24/19 18:53 Completed NEBULIZER TREATMENT Routine CARDIO 07/24/19 18:52 Completed NEBULIZER TREATMENT Stat CARDIO 07/24/19 18:43 Completed OXYGEN Routine CARDIO 07/24/19 15:41 Completed OXYGEN Routine CARDIO 07/24/19 18:51 Completed ACTIVITY .BR with BRP CARE 07/24/19 18:51 Active BLOOD GLUCOSE MONITORING 0630,1100,1700,2100 CARE 07/24/19 18:53 Active INTAKE & OUTPUT Q8HR CARE 07/24/19 18:51 Active TELEMETRY MONITORING TELE CARE 07/24/19 19:29 Active VITAL SIGNS Q8HR CARE 07/24/19 18:51 Active REGULAR DIET DIETARY 07/24/19 Dinner Completed BLOOD CULTURE (ED ONLY) Stat LAB 07/24/19 15:50 Completed CBC W/ AUTO DIFF DAILY@0600 LAB 07/25/19 04:27 Completed CBC W/ AUTO DIFF DAILY@0600 LAB 07/26/19 06:25 Completed CBC W/ AUTO DIFF Stat LAB 07/24/19 15:50 Completed CMP [COMPREHENSIVE METABOLIC PANEL] Stat LAB 07/24/19 15:50 Completed COMPREHENSIVE METABOLIC PANEL DAILY@0600 LAB 07/25/19 04:27 Completed COMPREHENSIVE METABOLIC PANEL DAILY@0600 LAB 07/26/19 06:25 Completed CPK [CREATINE KINASE] Stat LAB 07/24/19 15:50 Completed FLU A & B MOLECULAR [FLU A/B MOLECULAR] Stat LAB 07/24/19 15:40 Completed MAGNESIUM Stat LAB 07/24/19 15:50 Completed RAPID STREP SCREEN [MOLECULAR GROUP A STREP] Stat LAB 07/24/19 15:40 Completed TROPONIN I Stat LAB 07/24/19 15:50 Completed UA [URINALYSIS C & S IF INDICATED] Stat LAB 07/24/19 18:11 Completed Alprazolam [Xanax] MEDS 07/25/19 09:00 Discontinued 0.5 mg PO BID Aspirin [Aspirin EC] MEDS 07/24/19 21:00 Discontinued 81 mg PO BEDTIME Citalopram Hydrobromide [Celexa] MEDS 07/25/19 09:00 Discontinued 40 mg PO DAILY Dexamethasone 4 mg/ml Inj [Decadron 4 mg/ml Sdv] MEDS 07/24/19 18:51 Discontinued 4 mg IVP ONCE STA Diazepam [Valium] MEDS 07/24/19 21:00 Discontinued 2.5 mg PO TID Diazepam [Valium] MEDS 07/24/19 18:42 Discontinued 5 mg PO ONCE STA Diltiazem HCl [Cardizem] MEDS 07/24/19 21:00 Discontinued 60 mg PO BID Enoxaparin Sodium [Lovenox] MEDS 07/24/19 19:00 Discontinued 40 mg SUBCUT DAILY Hydrocodone Bit/Acetaminophen [Lillie 10-325] MEDS 07/24/19 19:06 Discontinued 1 tab PO Q6H PRN Ipratropium/Albuterol Neb [Duoneb] MEDS 07/24/19 18:42 Discontinued 3 ml NEB ONCE STA Ipratropium/Albuterol Neb [Duoneb] MEDS 07/24/19 20:00 Discontinued 3 ml NEB RTQID Meclizine HCl [Antivert] MEDS 07/24/19 18:42 Discontinued 25 mg PO ONCE STA Meclizine HCl [Antivert] MEDS 07/24/19 19:00 Discontinued 25 mg PO TID Ondansetron HCl/Pf [Zofran 4 mg/2 ml] MEDS 07/24/19 18:51 Discontinued 4 mg IVP Q6H PRN Potassium Chloride in 0.9%NaCl [Sodium Chloride 0.9%- MEDS 07/24/19 19:00 Discontinued KCl 20 Meq] 1,000 ml IV 70 mls/hr Pregabalin [Lyrica] MEDS 07/24/19 21:00 Discontinued 100 mg PO TID cyanocobalamin (vitamin B-12) MEDS 07/25/19 09:00 Discontinued 1,000 mcg PO DAILY RESUSCITATION STATUS Routine OTHERS 07/24/19 18:51 Completed CHEST, 1V AP ONLY Stat RADS 07/24/19 15:41 Completed OT CONSULTATION Routine THERAPIES 07/24/19 15:24 Completed PT CONSULT Routine THERAPIES 07/24/19 15:24 Completed Medications Discontinued Medications Generic Name Dose Route Start Last Admin Trade Name Freq PRN Reason Stop Dose Admin Hydrocodone Bitart/Acetaminophen 1 tab 07/24/19 19:06 07/26/19 12:50 Lillie 10-325 PO 1 tab Q6H PRN Administration Pain Albuterol/Ipratropium 3 ml 07/24/19 18:42 07/24/19 19:30 Duoneb NEB 07/24/19 18:43 3 ml ONCE STA Administration Albuterol/Ipratropium 3 ml 07/24/19 20:00 07/26/19 10:18 Duoneb NEB 3 ml RTQID NAMAN Administration Alprazolam 0.5 mg 07/25/19 09:00 07/26/19 09:00 Xanax PO 0.5 mg BID NAMAN Administration Aspirin 81 mg 07/24/19 21:00 07/25/19 20:34 Aspirin Ec PO 81 mg BEDTIME NAMAN Administration Citalopram Hydrobromide 40 mg 07/25/19 09:00 07/26/19 08:59 Celexa PO 40 mg DAILY NAMAN Administration Dexamethasone Sodium Phosphate 4 mg 07/24/19 18:51 07/24/19 19:24 Decadron 4 Mg/Ml Sdv IVP 07/24/19 18:52 4 mg ONCE STA Administration Diazepam 5 mg 07/24/19 18:42 07/24/19 19:22 Valium PO 07/24/19 18:43 5 mg ONCE STA Administration Diazepam 2.5 mg 07/24/19 21:00 07/26/19 09:00 Valium PO 2.5 mg TID NAMAN Administration Diltiazem HCl 60 mg 07/24/19 21:00 07/26/19 09:00 Cardizem PO 60 mg BID NAMAN Administration Enoxaparin Sodium 40 mg 07/24/19 19:00 07/26/19 09:00 Lovenox SUBCUT 40 mg DAILY NAMAN Administration Potassium Chloride/Sodium Chloride 1,000 mls @ 70 mls/hr 07/24/19 19:00 07/26/19 00:28 Sodium Chloride 0.9%-Kcl 20 Meq IV 70 mls/hr .[id number] NAMAN Administration Meclizine HCl 25 mg 07/24/19 18:42 07/24/19 19:21 Antivert PO 07/24/19 18:43 25 mg ONCE STA Administration Meclizine HCl 25 mg 07/24/19 19:00 07/26/19 09:00 Antivert PO 25 mg TID NAMAN Administration Non-Formulary Medication 1,000 mcg 07/25/19 09:00 07/26/19 09:06 Cyanocobalamin (Vitamin B-12) PO Not Given DAILY NAMAN Ondansetron HCl 4 mg 07/24/19 18:51 Zofran 4 Mg/2 Ml IVP Q6H PRN Nausea Pregabalin 100 mg 07/24/19 21:00 07/26/19 08:59 Lyrica PO 100 mg TID NAMAN Administration Vital Signs: Temp Pulse Resp BP Pulse Ox 07/24/19 15:35 97.0 F L 100 H 20 117/77 92 L Discharge Plan Discharge Patient Disposition: ADMITTED INPATIENT Discharge Problem: Acute labyrinthitis, Dehydration, Hyponatremia, Anxiety Instructions: How to Stop Smoking (GEN), Vertigo (GEN), Cigarette Smoking and Your Health (GEN), Depression (GEN), COPD (Chronic Obstructive Pulmonary Dise ase) (GEN), Generalized Anxiety Disorder (GEN), Chronic Hypertension (GEN), Dizziness (GEN) Additional Instructions: DISCHARGE HOME TODAY ACTIVITY : UP AD JIMBO. CHANGE POSITIONS SLOWLY. NO STRENUOUS ACTIVITY UNTIL DR. LACY APPOINTMENT DIET: REGULAR SEE DR. LACY/GIDEON TSANG APRN , NEXT TUESDAY ON 08/02/2019 @ 245 PM FOLLOW UP WITH APPOINTMENT IN [facility] ON 07/30/[address] MONTGOMERY AT THE [facility] ON 08/28 @200 PM NEW PRESCRIPTIONS: 1). VALUIM 2 MG TABLET BY MOUTH TWICE DAILY NEEDED FOR ANXIETY AND DIZZINESS 2). ANTIVERT 25 MG BY MOUTH THREE TIMES DAILY NEEDED FOR DIZZINESS STOPPED MEDICATIONS: XANAX ED Provider: JENELLE FISHMAN Condition: Stable Discharge Date/Time: 07/24/19 19:49 Dizziness (Neuro) Character: Reports room spinning, vertigo, lightheadedness and pre-syncope Severity: moderate Activity at onset: looking up, looking down and valsalva Symptoms exacerbated by: movement and change in head position Symptoms improved by: sitting still and lying down Associated symptoms: Reports headache(s), hearing loss, nausea and palpitations Additional Information: Refused to allow ABG drawn
[2019-07-24 16:06] LABS: HEMATOCRIT 42.6 % (37.0-47.0)
--- NOTE | 2019-07-24 16:31 | DI ---
EXAM: CHEST FRONTAL VIEW HISTORY: Shortness of breath. COMPARISON: 01/27/2019 FINDINGS: Heart size is approaching upper limit normal, stable. There is ectasia of the aorta. No acute infiltrates are seen. No vascular congestion. There is no consolidation, visible pleural flui d or pneumothorax. Bones reveal no acute fracture. IMPRESSION: No acute cardiopulmonary process.
[2019-07-24] MEDS ORDERED: VALIUM PO STA (18:42)
[2019-07-24] MEDS ORDERED: DUONEB NEB STA (18:42)
[2019-07-24] MEDS ORDERED: ANTIVERT PO STA (18:42)
[2019-07-24] MEDS ORDERED: DECADRON 4 MG/ML SDV IVP STA (18:51)
[2019-07-24] MEDS ORDERED: ZOFRAN 4 MG/2 ML IVP PRN (18:51)
[2019-07-24] MEDS: SODIUM CHLORIDE 0.9%-KCL 20 MEQ 1,000 ML IV SCH (20:32)
[2019-07-24] MEDS: DUONEB NEB SCH (20:44)
[2019-07-24 20:53] VITALS: BMI 36.6
[2019-07-24] MEDS: LOVENOX SUBCUT SCH (21:03)
[2019-07-24] MEDS: LYRICA PO SCH (21:05)
[2019-07-24] MEDS: ANTIVERT PO SCH ×2 (21:05)
[2019-07-24] MEDS: NORCO 10-325 PO PRN (21:06)
[2019-07-24] MEDS: ASPIRIN EC PO SCH (21:06)
[2019-07-24] MEDS: CARDIZEM PO SCH (21:06)
[2019-07-24] MEDS: VALIUM PO SCH (21:06)
[2019-07-25 04:41] LABS: HEMATOCRIT 40.7 % (37.0-47.0)
[2019-07-25] MEDS: DUONEB NEB SCH ×4 (04:58→19:53)
[2019-07-25] MEDS: ANTIVERT PO SCH ×3 (09:47→20:34)
[2019-07-25] MEDS: VALIUM PO SCH ×3 (09:47→20:33)
[2019-07-25] MEDS: CARDIZEM PO SCH ×2 (09:47→20:34)
[2019-07-25] MEDS: LYRICA PO SCH ×3 (09:48→20:34)
[2019-07-25] MEDS: XANAX PO SCH ×2 (09:48→20:34)
[2019-07-25] MEDS: NORCO 10-325 PO PRN ×3 (09:51→21:47)
[2019-07-25] MEDS: LOVENOX SUBCUT SCH (09:52)
[2019-07-25] MEDS: CELEXA PO SCH (09:53)
[2019-07-25] MEDS: NON-FORMULARY MEDICATION (Cyanocobalamin (Vitamin B-12) 1,000 MCG) PO SCH (09:53)
[2019-07-25] MEDS: SODIUM CHLORIDE 0.9%-KCL 20 MEQ 1,000 ML IV SCH (11:06)
[2019-07-25] MEDS: ASPIRIN EC PO SCH (20:34)
[2019-07-26] MEDS: SODIUM CHLORIDE 0.9%-KCL 20 MEQ 1,000 ML IV SCH (00:28)
[2019-07-26] MEDS: DUONEB NEB SCH ×2 (04:48→10:18)
[2019-07-26 05:18] VITALS: BP 125/77; TEMP 97.7
[2019-07-26] MEDS: NORCO 10-325 PO PRN ×2 (05:49→12:50)
[2019-07-26 06:39] LABS: HEMATOCRIT 35.3 % (37.0-47.0)
[2019-07-26] MEDS: CELEXA PO SCH (08:59)
[2019-07-26] MEDS: LYRICA PO SCH (08:59)
[2019-07-26] MEDS: XANAX PO SCH (09:00)
[2019-07-26] MEDS: LOVENOX SUBCUT SCH (09:00)
[2019-07-26] MEDS: VALIUM PO SCH (09:00)
[2019-07-26] MEDS: CARDIZEM PO SCH (09:00)
[2019-07-26] MEDS: ANTIVERT PO SCH (09:00)
--- NOTE | 2019-07-26 09:03 | PCM.PROG ---
Attending Provider: ATTENDING PROVIDER: Dr. SHIRA DIAZ This patient is seen with Lelo Norman, Nurse Practitioner. DATE OF SERVICE: 07/26/19 SUBJECTIVE: This 74 year old /WHITE F was hospitalized 07/24/19. The patient is resting comfortably in bed. She has had intermittent dizziness for years. The patient has an appointment at [place] on Tuesday regarding hearing loss. The patient is noncompliant with medications, lifestyle and followup. REVIEW OF SYSTEMS: CONSTITUTIONAL: No night sweats. No fatigue, malaise, lethargy. No fever or chills. HEENT: Eyes: No visual changes. No eye pain. No eye discharge. ENT: No runny nose. No epistaxis. No sinus pain. No odynophagia. No congestion. RESPIRATORY: No cough, no congestion. No hemoptysis. No shortness of breath. CARDIOVASCULAR: No angina symptoms. No CHF symptoms. No atypical chest pain for CAD. No palpitations. No orthopnea.. GASTROINTESTINAL: No abdominal pain. No nausea or vomiting. No diarrhea or con stipation. No hematemesis. No hematochezia. GENITOURINARY: No urgency. No frequency. No dysuria. No hematuria. No obstructive symptoms. No discharge. No pain. No significant abnormal bleeding. MUSCULOSKELETAL: No musculoskeletal pain; no joint swelling. NEUROLOGICAL: Awake, alert, oriented to time, place and person. No headache. No neck pain. No syncope. No seizures. No dizziness. PSYCHIATRIC: Positive for anxiety. No depression. No suicidal thoughts. No homicidal thoughts. SKIN: No rash. No lesions. No wounds. ENDOCRINE: No unexplained weight loss. No weight gain. HEMATOLOGIC/LYMPHATIC: No anemia. No purpura. No petechiae. No prolonged or excessive bleeding. No palpable lymph nodes. PHYSICAL EXAMINATION: GENERAL: The patient is awake, alert and oriented, lying/sitting in bed in no distress. VITAL SIGNS: Temperature 97.7 F, Pulse 71, Respiratory Rate 16, BP 125/77, Pulse Ox 99% HEENT: Head normocephalic, atraumatic. Eyes: Extraocular muscles are intact. Pupils are equal, round and reactive to light and accommodation. Ears: No lesions. Nose appeared normal. Throat: No exudate or erythema. NECK: Supple. No JVD, no carotid bruit. No lymphadenopathy or thyromegaly. LUNGS: Diminished breath sounds. Clear to auscultation. Percussion note normal. Chest symmetrical. HEART: S1, S2, no S3. No murmurs. No cyanosis or clubbing. No ascites. Pul ses: Dorsalis pedis and posterior tibial pulses +1 to +2 both sides. ABDOMEN: Soft. Non-tender. Bowel sounds active. No CVA tenderness. No mass felt. EXTREMITIES: No edema. Full range of motion of all extremities, equal. NEUROLOGIC: No focal deficit. Cranial nerves II through XII are grossly intact. No headache, no double vision or headache. SKIN: Not dry. Intact. Turgor-normal. LYMPHATIC: No palpable lymph nodes/no lymphedema. MUSCULOSKELETAL: Normal joints with no swelling. Muscle tone is normal. LAB REVIEW: 07/26/19 06:25 07/26/19 06:25 07/26/19 06:25: Sodium 134.9, Potassium 4.59, Chloride 103.2, Carbon Dioxide 26.4, Anion Gap 9.89, BUN 24.1 H, Creatinine 0.79, Estimated GFR (MDRD) 71.00, BUN/Creatinine Ratio 30.50, Glucose 99.3, Calcium 8.87, Total Bilirubin 0.69, AST 14.2, ALT 11.0, Alkaline Phosphatase 78.9, Total Protein 6.58, Albumin 3.84, Globulin 2.74, Albumin/Globulin Ratio 1.40 07/26/19 06:25: WBC 6.71, RBC 3.95 L, Hgb 12.2, Hct 35.3 L, MCV 89.4, MCH 30.9, MCHC 34.6, RDW Coeff of Sharon 12.9, Plt Count 216, Immature Gran % (Auto) 0.7, Neut % (Auto) 58.1, Lymph % (Auto) 32.5, Deuel % (Auto) 7.9, Eos % (Auto) 0.4, Baso % (Auto) 0.4, Immature Gran # (Auto) 0.1, Neut # (Auto) 3.9, Lymph # (Auto) 2.2, Deuel # (Auto) 0.5, Eos # (Auto) 0.0, Baso # (Auto) 0.0 ASSESSMENT: Please see below. 1. Chronic dizziness. 2. COPD. 3. Hypertension. 4. Noncompliance. PLAN: 1. The patient is advised to keep appointment with [facility] on Tuesday. 2. Discharge home today. 3. Antivert t.i.d. p.r.n. #30. 4. Valium 2 mg b.i.d. p.r.n. #30. 5. Carotid scan prior to discharge. 6. Advised to quit smoking. 7. The patient has stopped Celexa on her own. 8. A1C. Plan and coordination of the patient's care discussed in the presence of Torpedo Shooter and nurse. CONDITION: Stable SCRIBED BY: KATHY HAILE Revenue Agent scribed while in presence of service performed by Dr. Diaz/Lelo Norman, LARRY on 07/26/19 ([id number])
[2019-07-26] MEDS: NON-FORMULARY MEDICATION (Cyanocobalamin (Vitamin B-12) 1,000 MCG) PO SCH (09:06)
--- NOTE | 2019-07-26 09:45 | PN ---
DATE OF SERVICE: 07/25/19 SUBJECTIVE: The patient is feeling better. Still mild dizziness. The patient's hydration status seems to have improved. The patient has been disabling and her condition is stable but the patient's problems with the vestibular dysfunction having been disabling. It is to the point that it is effecting her food intake. REVIEW OF SYSTEMS: CONSTITUTIONAL: No night sweats. No fatigue, malaise, lethargy. No fever or chills. HEENT: Eyes: No visual changes. No eye pain. No eye discharge. ENT: No runny nose. No epistaxis. No sinus pain. No sore throat. No odynophagia. No congestion. RESPIRATORY: No cough, no congestion. No hemoptysis. No shortness of breath. CARDIOVASCULAR: No angina symptoms. No CHF symptoms. No atypical chest pain for CAD. No palpitations. No PND. No orthopnea. GASTROINTESTINAL: No abdominal pain. No nausea or vomiting. No diarrhea or constipation. No hematemesis. No hematochezia. GENITOURINARY: No urgency. No frequency. No dysuria. No hematuria. No obstructive symptoms. No discharge. No pain. No significant abnormal bleeding. MUSCULOSKELETAL: No musculoskeletal pain; no joint swelling. NEUROLOGICAL: No headache. No neck pain. No syncope. No seizures. No dizziness. PSYCHIATRIC: Not anxious. No depression. No suicidal thoughts. No homicidal thoughts. SKIN: No rash. No lesions. No wounds. ENDOCRINE: No unexplained weight loss. No weight gain. HEMATOLOGIC/LYMPHATIC: No anemia. No purpura. No petechiae. No prolonged or excessive bleeding. No palpable lymph nodes. PHYSICAL EXAMINATION: HEENT: Head normocephalic, atraumatic. Eyes: Extraocular muscles are intact. Pupils are equal, round and reactive to light and accommodation. Ears: No lesions. Nose appeared normal. Throat: No exudate or erythema. NECK: Supple. No JVD, no carotid bruit. No lymphadenopathy or thyromegaly. LUNGS: Clear to auscultation. Percussion note normal. Chest symmetrical. HEART: S1, S2, no S3. No murmurs. No cyanosis or clubbing. No ascites. Pulses: Dorsalis pedis and posterior tibial pulses +1 to +2 bilaterally. ABDOMEN: Soft. Nontender. Bowel sounds active. No CVA tenderness. No mass felt. EXTREMITIES: No edema. Full range of motion of all extremities, equal. NEUROLOGIC: No focal deficit. Cranial nerves II through XII are grossly intact. No headache, no double vision or headache. SKIN: Not dry. Intact. Turgor - normal. LYMPHATIC: No palpable lymph nodes/no lymphedema. MUSCULOSKELETAL: Normal joints with no swelling. Muscle tone is normal. ASSESSMENT: 1. Dizziness PLAN: 1. Continue IV antibiotics and steroids 2. Continue Antivert and Valium TIME SPENT: More than 30 minutes. Plan and coordination of the patient's care discussed in the presence of nurse. SUSAN
--- NOTE | 2019-07-26 10:53 | US ---
EXAM: Bilateral carotid Doppler HISTORY: Dizziness TECHNIQUE: Real time color Doppler and pulse Doppler imaging was performed on the bilateral common c arotid, internal carotid, external carotid and vertebral arteries. Intrepretation performed utilaliyahin terell NASCCEDRICK farfan. FINDINGS: RIGHT: (all velocities in cm/sec, peak systolic/peak diastolic). ICA: 89 ICA/CCA ratio:1.2 CCA: 73 ECA:100 Vertebral: Antegrade, 44 Plaque: Mild echogenic plaque seen throughout the common carotid and proximal ICA. LEFT: (all velocities in cm/sec, peak systolic/peak diastolic). ICA: 90 ICA/CCA ratio: 1.5 CCA: 61 ECA: 89 Vertebral: Antegrade, 51 Plaque: Mild echogenic plaque seen throughout the common carotid and proximal ICA. IMPRESSION: Bilateral carotid velocities suggest no flow-limiting stenosis.
--- NOTE | 2019-07-26 11:35 | CM.DICTOOL ---
ADMISSION: 07/24/19 19:41 DISCHARGE: JULY 26, 2019 DATE OF SERVICE: 07/26/19 FINAL DIAGNOSIS CHRONIC DIZZINESS COPD HYPERTENSION NONCOMPLIANCE WITH MEDS AND LIFESTYLE HX: ACUTE LABYRINTHITIS HYPONATREMIA DEHYDRATION GENERAL ANXIETY DISORDER DEPRESSION - Dr. 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 LIU SEPULVEDA CAROTID DOPPLER (07/26/2019) BILATERAL CAROTIDS SUGGEST NO FLOW- LIMITING STENOSIS. LAST VITALS Temp Pulse Resp BP Pulse Ox 97.7 F 71 16 125/77 99 07/26/19 05:17 07/26/19 05:17 07/26/19 05:17 07/26/19 05:17 07/26/19 05:17 TAKE THESE MEDICATIONS AT HOME Hydrocodone Bitart/Acetaminophen ([place] 10-325) 1 tab PO Q6H PRN ( per ortho) PRN Reason: Pain Last Admin: 07/26/19 05:49 Dose: 1 tab Aspirin (Aspirin Ec) 81 mg PO BEDTIME [facility] Last Admin: 07/25/19 20:34 Dose: 81 mg Citalopram Hydrobromide (Celexa) 40 mg PO DAILY [facility] Last Admin: 07/26/19 08:59 Dose: 40 mg Diltiazem HCl (Cardizem) 60 mg PO BID [facility] Last Admin: 07/26/19 09:00 Dose: 60 mg Meclizine HCl (Antivert) 25 mg PO TID PRN (NEW) Last Admin: 07/26/19 09:00 Dose: 25 mg Non-Formulary Medication (Cyanocobalamin (Vitamin B-12)) 1,000 mcg PO DAILY [facility] Last Admin: 07/26/19 09:06 Dose: Not Given Pregabalin (Lyrica) 100 mg PO TID [facility] Last Admin: 07/26/19 08:59 Dose: 100 mg VAILUM 2 MG B.I.D. PRN (NEW) ALLERGIES simvastatin [From Zocor] Allergy (Mild, Verified 07/24/19 15:38) Rash atorvastatin [From Lipitor] Adverse Reaction (Mild, Verified 07/24/19 15:38) muscle pain rosuvastatin [From Crestor] Adverse Reaction (Mild, Verified 07/24/19 15:38) muscle pain DISCONTINUED MEDICATIONS XANAX NEW PRESCRIPTIONS: VALIUM 2 MG PO BID PRN ANTIVERT 25 MG PO TID PRN SMOKING: SMOKING CESSATION INSTRUCTIONS DISEASE SPECIFIC EDUCATION: DIZZINESS SMOKING CESSATION ANXIETY DEPRESSION COPD HTN LAB REVIEW: 07/26/19 06:25 07/26/19 06:25 07/26/19 06:25: Sodium 134.9, Potassium 4.59, Chloride 103.2, Carbon Dioxide 26.4, Anion Gap 9.89, BUN 24.1 H, Creatinine 0.79, Estimated GFR (MDRD) 71.00, BUN/Creatinine Ratio 30.50, Glucose 99.3, Calcium 8.87, Total Bilirubin 0.69, AST 14.2, ALT 11.0, Alkaline Phosphatase 78.9, Total Protein 6.58, Albumin 3.84, Globulin 2.74, Albumin/Globulin Ratio 1.40 07/26/19 06:25: WBC 6.71, RBC 3.95 L, Hgb 12.2, Hct 35.3 L, MCV 89.4, MCH 30.9, MCHC 34.6, RDW Coeff of [place] 12.9, Plt Count 216, Immature Gran % (Auto) 0.7, Neut % (Auto) 58.1, Lymph % (Auto) 32.5, [place] % (Auto) 7.9, Eos % (Auto) 0.4, Baso % (Auto) 0.4, Immature Gran # (Auto) 0.1, Neut # (Auto) 3.9, Lymph # (Auto) 2.2, [place] # (Auto) 0.5, Eos # (Auto) 0.0, Baso # (Auto) 0.0 PLAN: DISCHARGE HOME TODAY ACTIVITY : UP AD JIMBO. CHANGE POSITIONS SLOWLY. NO STRENUOUS ACTIVITY UNTIL DR. DIAZ APPOINTMENT DIET: REGULAR SEE DR. DIAZ/GIDEON TSANG, GUTTER INSTALLER , NEXT TUESDAY ON 08/02/2019 @ 245 PM FOLLOW UP WITH APPOINTMENT IN [facility] ON 07/30/[address] MONTGOMERY AT THE [facility] ON 08/28 @200 PM CODE STATUS: FULL CODE MRS. LUNA REMAINS ALERT AND ORIENTED X 4 AND NO DISTRESS. NO S/S OF /OR REPORTS OF ACUTE PAIN, THOUGH HAD REPORTED LOWER BACK AND LT GROIN PAIN, BOTH CHRONIC. CAME THROUGH ED WITH REPORTS SOA, DIZZINESS AND H/A. ED WITH NO SUBSTANIAL RESULTS WITH WORK-UP: CHEST X RAY,U/A, FLU A & B, BLOOD CULTURES AND LABS. SHE VERBALIZED STOPPING CELEXA ON OWN AT HOME, STATED SHE REDUCED DOSES AND THE STOPPED. NO FURTHER DIZZINESS SINCE ADMISSION. GETTING UP WITH [facility]. NUTRITIONAL INTAKE WNL. FLUID INTAKE SUBSTANTIAL. MD GIDEON GAY, GUTTER INSTALLER
--- NOTE | 2019-07-26 13:48 | PN ---
DATE OF SERVICE: 07/24/19 SUBJECTIVE: The patient was hospitalized with severe dizziness. The patient is to have cochlear transplant at [place] in near future. Her dizziness is so severe that she is unable to even walk and has nausea. She is practically disabled from it. She hasn't been eating for past several days according to her. The patient is a heavy smoker. The patient was seen and examined by the ER attending, Dr. Oconnor. He indicated the patient needs to be hospitalized. Physical exam and labs all reported as practically normal except Sodium 130. REVIEW OF SYSTEMS: CONSTITUTIONAL: No night sweats. No fatigue, malaise, lethargy. No fever or chills. HEENT: Eyes: No visual changes. No eye pain. No eye discharge. ENT: No runny nose. No epistaxis. No sinus pain. No sore throat. No odynophagia. No congestion. RESPIRATORY: No cough, no congestion. No hemoptysis. No shortness of breath. CARDIOVASCULAR: No angina symptoms. No CHF symptoms. No atypical chest pain for CAD. No palpitations. No PND. No orthopnea. GASTROINTESTINAL: No abdominal pain. No nausea or vomiting. No diarrhea or constipation. No hematemesis. No hematochezia. GENITOURINARY: No urgency. No frequency. No dysuria. No hematuria. No obstructive symptoms. No discharge. No pain. No significant abnormal bleeding. MUSCULOSKELETAL: No musculoskeletal pain; no joint swelling. NEUROLOGICAL: No headache. No neck pain. No syncope. No seizures. No dizziness. PSYCHIATRIC: Not anxious. No depression. No suicidal thoughts. No homicidal thoughts. SKIN: No rash. No lesions. No wounds. ENDOCRINE: No unexplained weight loss. No weight gain. HEMATOLOGIC/LYMPHATIC: No anemia. No purpura. No petechiae. No prolonged or excessive bleeding. No palpable lymph nodes. PHYSICAL EXAMINATION: HEENT: Head normocephalic, atraumatic. Eyes: Extraocular muscles are intact. Pupils are equal, round and reactive to light and accommodation. Ears: No lesions. Nose appeared normal. Throat: No exudate or erythema. NECK: Supple. No JVD, no carotid bruit. No lymphadenopathy or thyromegaly. LUNGS: Clear to auscultation. Percussion note normal. Chest symmetrical. HEART: S1, S2, no S3. No murmurs. No cyanosis or clubbing. No ascites. Pulses: Dorsalis pedis and posterior tibial pulses +1 to +2 bilaterally. ABDOMEN: Soft. Nontender. Bowel sounds active. No CVA tenderness. No mass felt. EXTREMITIES: No edema. Full range of motion of all extremities, equal. NEUROLOGIC: No focal deficit. Cranial nerves II through XII are grossly intact. No headache, no double vision or headache. SKIN: Not dry. Intact. Turgor - normal. LYMPHATIC: No palpable lymph nodes/no lymphedema. MUSCULOSKELETAL: Normal joints with no swelling. Muscle tone is normal. ASSESSMENT: 1. Severe vertigo with vestibular dysfunction 2. Dehydration PLAN: 1. Admit the patient 2. 1cc Decadron 3. Start Antivert with Valium 4. Telemetry 5. EKG 6. Supportive measures. TIME SPENT: More than 30 minutes. Plan and coordination of the patient's care discussed in the presence of nurse. SUSAN
--- NOTE | 2019-07-26 14:52 | PN ---
DATE OF SERVICE: 07/26/19 SUBJECTIVE: The patient was seen and examined with the Nurse Practitioner. The patient's condition was stable. [facility] [employer] [employer]EARCH is more or less under control. She is going to have cochlear implant at [place] next Tuesday that is three days from now. Cardiovascular status and carotid scan acceptable. TIME SPENT: More than 30 minutes. Plan and coordination of the patient's care discussed in the presence of nurse. SUSAN
--- NOTE | 2019-07-26 14:53 | PN ---
07/24/19: Level 5 07/25/19: Intermediate 07/26/19: D as in discharge MTDD
--- NOTE | 2019-07-27 10:53 | HP ---
DATE OF SERVICE: 07/24/19 REASON FOR HOSPITALIZATION/HISTORY OF PRESENT ILLNESS: 73 year old white female who presented to the emergency room complaining of shortness of breath, dizziness and fatigue. She drove herself to the emergency room. PAST MEDICAL HISTORY: Chronic low back, sees Dr. Ford History of hyponatremia Chronic bronchitis COPD Heavy smoker Recurrent UTIs Anxiety disorder Hypertension Dyslipidemia Depression Anxiety, is supposed to be seeing Dr. Guo Chronic lung edema which is dependant PAST SURGICAL HISTORY: Partial hysterectomy REVIEW OF SYSTEMS: CONSTITUTIONAL: No night sweats. Fatigue. No fever or chills. HEENT: Eyes: No visual changes. No eye pain. No eye discharge. ENT: No runny nose. No epistaxis. No sinus pain. No sore throat. No odynophagia. No ear pain. No congestion. RESPIRATORY: Cough, no congestion. No hemoptysis. No shortness of breath. CARDIOVASCULAR: No angina symptoms. No CHF symptoms. No atypical chest pain for CAD. No palpitations. No PND. No orthopnea. GASTROINTESTINAL: No abdominal pain. No nausea or vomiting. No diarrhea or constipation. No hematemesis. No hematochezia. GENITOURINARY: No urgency. No frequency. No dysuria. No hematuria. No obstructive symptoms. No discharge. No pain. No significant abnormal bleeding. MUSCULOSKELETAL: No musculoskeletal pain. No joint swelling. No arthritis. NEUROLOGICAL: No headache. No neck pain. No syncope. No seizures. Intermittent dizziness which is chronic. PSYCHIATRIC: Not anxious. No depression. No suicidal thoughts. No homicidal thoughts. SKIN: No rash. No lesions. No wounds. ENDOCRINE: No unexplained weight loss. No weight gain. HEMATOLOGIC/LYMPHATIC: No anemia. No purpura. No petechiae. No prolonged or excessive bleeding. No palpable lymph nodes. PERSONAL/FAMILY/SOCIAL HISTORY: The patient is and heavy smoker. No alcohol or illicit drug use. MEDICATIONS: [place] 10-325mg PO Q 6 hours PRN Diltiazem 60mg PO BID Celexa 40mg PO daily Vitamin B12 1000mcg PO daily Aspirin 81mg PO bedtime Alprazolam 0.5mg PO BID Pregabalin 100mg PO TID ProAir HFA two puffs inhalation QID PRN ALLERGIES: Simvastatin Atorvastatin Rosuvastatin PHYSICAL EXAMINATION: GENERAL: The patient is alert and oriented. VITAL SIGNS: Temperature 97, heart rate 100, respiratory rate 20, blood pressure 117/77, pulse ox 92% on room air. HEENT: Head normocephalic, atraumatic. Eyes: Extraocular muscles are intact. Pupils are equal, round and reactive to light and accommodation. Ears: No lesions. Nose appeared normal. Throat: No exudate or erythema. NECK: Supple. No JVD, no carotid bruit. No lymphadenopathy or thyromegaly. LUNGS: Diminished breath sounds bilaterally. Clear to auscultation. Percussion note normal. Chest symmetrical. HEART: S1, S2, no S3. No murmur. No cyanosis or clubbing. No ascites. Pulses: Dorsalis pedis and posterior tibial pulses +1 to +2 bilaterally. ABDOMEN: Soft. Nontender. Bowel sounds active. No CVA tenderness. No mass felt. EXTREMITIES: No edema. Full range of motion of all extremities, equal. NEUROLOGIC: No focal deficit. Cranial nerves II through XII are grossly intact. No headache, no double vision or headache. SKIN: Not dry. Intact. Turgor - normal. LYMPHATIC: No palpable lymph nodes/no lymphedema. MUSCULOSKELETAL: Normal joints with no swelling. Muscle tone is normal. LABS: WBC 7.6, hgb 15, HCT 42.6, plt count 282, sodium 130, potassium 4.3, BUN 17, creatinine 0.9, plt count 149, Influenza A and B are both negative. Chest x-ray is normal. Urine is normal. ASSESSMENT: 1. Vertigo 2. COPD 3. Anxiety PLAN: 1. We will admit 2. Routine telemetry orders 3. CBC and CMP daily 4. Continue home medications 5. Antivert 25mg PO TID scheduled 6. Valium 2mg TID scheduled PO 7. Nicotine patch 8. The patient has long history of noncompliance with both medications and followup 9. Start IV fluids Normal Saline at 75cc an hour. We will follow closely. TIME SPENT: More than 70 minutes. MTDD
--- NOTE | 2019-07-30 11:54 | DS ---
DATE OF SERVICE: 07/26/19 FINAL DIAGNOSIS: 1. CHRONIC DIZZINESS 2. COPD 3. HYPERTENSION 4. NONCOMPLIANCE WITH MEDS AND LIFESTYLE 5. HISTORY OF ACUTE LABYRINTHITIS 6. HYPONATREMIA 7. DEHYDRATION 8. GENERAL ANXIETY DISORDER 9. DEPRESSION - Dr. 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 HATFIELD 17.BILATERAL CAROTID DOPPLER (07/26/2019) BILATERAL CAROTIDS SUGGEST NO FLOW- LIMITING STENOSIS. LAST VITALS Temp Pulse Resp BP Pulse Ox 97.7 F 71 16 125/77 99 07/26/19 05:17 07/26/19 05:17 07/26/19 05:17 07/26/19 05:17 07/26/19 05:17 DISCHARGE INSTRUCTIONS: DISCHARGE HOME TODAY. SEE DR. DIAZ/GIDEON TSANG, PSYCH ARNP , NEXT TUESDAY ON 08/02/2019 @ 245 PM. FOLLOW UP WITH APPOINTMENT IN [facility] ON 07/30/2019. FOLLOW UP WITH [facility]TG[facility] AT [facility] ON 08/28 @200 PM. CODE STATUS: FULL CODE. TAKE THESE MEDICATIONS AT HOME: Hydrocodone Bitart/Acetaminophen ([place] 10-325) 1 tab PO Q6H PRN ( per ortho) PRN Reason: Pain Last Admin: 07/26/19 05:49 Dose: 1 tab Aspirin (Aspirin Ec) 81 mg PO BEDTIME [facility] Last Admin: 07/25/19 20:34 Dose: 81 mg Citalopram Hydrobromide (Celexa) 40 mg PO DAILY [facility] Last Admin: 07/26/19 08:59 Dose: 40 mg Diltiazem HCl (Cardizem) 60 mg PO BID [facility] Last Admin: 07/26/19 09:00 Dose: 60 mg Meclizine HCl (Antivert) 25 mg PO TID PRN (NEW) Last Admin: 07/26/19 09:00 Dose: 25 mg Non-Formulary Medication (Cyanocobalamin (Vitamin B-12)) 1,000 mcg PO DAILY [facility] Last Admin: 07/26/19 09:06 Dose: Not Given Pregabalin (Lyrica) 100 mg PO TID [facility] Last Admin: 07/26/19 08:59 Dose: 100 mg VALIUM 2 MG B.I.D. PRN (NEW) ALLERGIES: simvastatin [From Zocor] Allergy (Mild, Verified 07/24/19 15:38) Rash atorvastatin [From Lipitor] Adverse Reaction (Mild, Verified 07/24/19 15:38) muscle pain rosuvastatin [From Crestor] Adverse Reaction (Mild, Verified 07/24/19 15:38) muscle pain DISCONTINUED MEDICATIONS: XANAX NEW PRESCRIPTIONS: VALIUM 2 MG PO BID PRN ANTIVERT 25 MG PO TID PRN SMOKING: SMOKING CESSATION INSTRUCTIONS DISEASE SPECIFIC EDUCATION: DIZZINESS SMOKING CESSATION ANXIETY DEPRESSION COPD HYPERTENSION LAB REVIEW: 07/26/19 06:25 07/26/19 06:25 07/26/19 06:25: Sodium 134.9, Potassium 4.59, Chloride 103.2, Carbon Dioxide 26.4, Anion Gap 9.89, BUN 24.1 H, Creatinine 0.79, Estimated GFR (MDRD) 71.00, BUN/Creatinine Ratio 30.50, Glucose 99.3, Calcium 8.87, Total Bilirubin 0.69, AST 14.2, ALT 11.0, Alkaline Phosphatase 78.9, Total Protein 6.58, Albumin 3.84, Globulin 2.74, Albumin/Globulin Ratio 1.40 07/26/19 06:25: WBC 6.71, RBC 3.95 L, Hgb 12.2, Hct 35.3 L, MCV 89.4, MCH 30.9, MCHC 34.6, RDW Coeff of [place] 12.9, Plt Count 216, Immature Gran % (Auto) 0.7, Neut % (Auto) 58.1, Lymph % (Auto) 32.5, [place] % (Auto) 7.9, Eos % (Auto) 0.4, Baso % (Auto) 0.4, Immature Gran # (Auto) 0.1, Neut # (Auto) 3.9, Lymph # (Auto) 2.2, [place] # (Auto) 0.5, Eos # (Auto) 0.0, Baso # (Auto) 0.0 ACTIVITY : UP AD JIMBO. CHANGE POSITIONS SLOWLY. NO STRENUOUS ACTIVITY UNTIL DR. DIAZ APPOINTMENT DIET: REGULAR HOSPITAL COURSE: This is a white female who presented to the emergency room after driving herself complaining of slight dizziness, coughing and shortness of breath. She has a long history of chronic dizziness with moderate to severe COPD and is a heavy smoker. She has a long history of noncompliance with medications, lifestyle and followup. Blood pressure was slightly elevated on admission. Chest x-ray showed no acute process. Kidney function slightly elevated. She was admitted and given normal saline IV at 75cc an hour. Started on Ativert 25mg TID along with Valium 2mg TID. Over the course of the past 48 hours her dizziness has improved. She also reported to us that had abruptly stopped her Celexa on her own that is been given to her by Dr. Guo. I did explain that this could worsen dizziness. We did a Carotid scan today prior to discharge which was normal. Information has been provided to her regarding smoking cessation. She states that she is feeling much better. She has been up and about walking around with no dizziness and eating 75-100% of her meals. She does have severe hearing loss. She has an appointment at [facility] on Tuesday regarding this. She has been instructed to keep this appointment. She will be discharged today in stable condition and followup with us next week. We will follow her closely. TIME SPENT: More than 60 minutes. SUSAN
== END 2019-07-26 13:00 | disposition home or self-care (01) | DRG 204 ==
LOC: ED 15:33 → MEDSURG B 19:41
PROVIDERS: ADMIT Internal Medicine; ATTEND Internal Medicine
DX: R60.0 Localized edema; F32.9 Major depressive disorder, single episode, unspecified; R06.2 Wheezing; J44.9 Chronic obstructive pulmonary disease, unspecified; Z72.0 Tobacco use; E86.0 Dehydration; R42 Dizziness and giddiness; I10 Essential (primary) hypertension; M54.9 Dorsalgia, unspecified; E78.5 Hyperlipidemia, unspecified; R06.00 Dyspnea, unspecified; H83.09 Labyrinthitis, unspecified ear; E66.9 Obesity, unspecified; R06.02 Shortness of breath; Z91.19 Patient's noncompliance with other medical treatment and regimen; E87.1 Hypo-osmolality and hyponatremia; F41.1 Generalized anxiety disorder

== ENCOUNTER 2021-02-25 09:22 | Inpatient (IN) ==
[2021-02-25] MEDS ORDERED: SODIUM CHLORIDE 1,000 ML IV STA ×2 (09:29→11:50)
[2021-02-25] MEDS ORDERED: VENTOLIN HFA (PER PUFF-WITH SPACER) IH ONE (09:29)
[2021-02-25] MEDS ORDERED: SOLU-MEDROL 125 MG IVP ONE (09:29)
[2021-02-25] MEDS ORDERED: CATAPRES PO ONE (09:29)
--- NOTE | 2021-02-25 09:37 | ED.PDOC ---
General ED Provider: Dr. CINTIA DAUGHERTY MD Chief Complaint: Shortness of Air Stated Complaint: mild to mod short of breath w/ nonprod cough since Tuesday, [id number] 95%, +general weakness and NVD, no fever, hx oxygen at night only, hx copd, obese, htn, dm, anxiety Time Seen by Provider: 02/25/21 09:26 Mode of Arrival: Ambulance Information Source: Patient Primary Care Provider: SHIRA DIAZ Nursing and Triage Documentation Reviewed and Agree: Yes Does patient meet sepsis criteria?: No System Inflammatory Response Syndrome: Not Applicable Sepsis Protocol: For patient's 13 years and over: Temp is 96.8 and below OR 101 and greater Pulse >90 BPM Resp >20/minute Acutely Altered Mental Status Are patient's symptoms suggestive of a new infection, such as: -Pneumonia -Skin, Soft Tissue -Endocarditis -UTI -Bone, Joint Infection -Implantable Device -Acute Abdominal Infection -Wound Infection -Meningitis -Blood Stream Catheter Infection -Unknown Review of Systems Review Of Systems Constitutional: Reports Malaise and Weakness; Denies Fever Eyes: Reports No symptoms Ears, Nose, Mouth, Throat: Denies Throat pain Respiratory: Reports Cough and Short of air; Denies Stridor Cardiac: Denies Chest pain GI: Reports Diarrhea, Nausea and Vomiting; Denies Abdominal pain : Denies Burning Musculoskeletal: Denies Back pain Skin: Denies Rash Neurological: Denies Cognitive dysfunction or Headache All Other Systems: Other ON LICENSE OF [facility] Medical History (Updated 02/25/21 @ 11:46 by CINTIA DAUGHERTY MD) Arthritis Elevated cholesterol Hypertension Sensorineural hearing loss (SNHL) of both ears Social History Smoking and tobacco status: Current every day smoker History of recent travel: No Surgical History Status post cholecystectomy Status post hysterectomy Female Reproductive History Menstrual Hx Hysterectomy: No Hx Tubal Ligation: No Physical Exam Physical Exam Appearance: Reports No pain distress Ill-appearing: None Pain Distress: Not Applicable Eyes: Reports Conjunctiva clear ENT: Reports Oropharynx normal Neck: Supple Respiratory: Reports Airway patent Cardiovascular: Reports RRR GI/: Reports Soft and Nontender Musculoskeletal: Reports No edema Skin: Reports Warm and Dry; Denies Cyanotic Neurological: Reports Alert and Oriented Psychiatric: Reports Affect appropriate Interpretation Radiology Interpretation Radiology Interpretation By: Radiologist Xray Comments: cxr per Rad nap EKG Interpretation Interpretation: nsr 74 no stemi Critical Care Note Critical Care Note Total Critical Care Time (mins): 0 Course Course Hematology/Chemistry: 02/25/21 09:44 02/25/21 09:44 Orders, Labs, Meds: Lab Review 02/25/21 02/25/21 02/25/21 09:40 09:44 09:44 WBC 6.53 RBC 4.15 L Hgb 13.1 Hct 36.1 L MCV 87.0 MCH 31.6 H MCHC 36.3 H RDW Coeff of [place] 12.1 Plt Count 231 Immature Gran % (Auto) 0.8 Neut % (Auto) 71.0 Lymph % (Auto) 20.7 [place] % (Auto) 5.8 Eos % (Auto) 1.2 Baso % (Auto) 0.5 Neut # (Auto) 4.6 Lymph # (Auto) 1.4 [place] # (Auto) 0.4 Eos # (Auto) 0.1 Baso # (Auto) 0.0 Immature Gran # (Auto) 0.1 Sodium 129.6 L Potassium 4.14 Chloride 97.4 L Carbon Dioxide 24.9 Anion Gap 11.44 BUN 14.4 Creatinine 0.58 L Estimated GFR (MDRD) 102.00 BUN/Creatinine Ratio 24.82 Glucose 172.0 H Calcium 9.18 Total Bilirubin 0.96 AST 28.1 ALT 20.4 Alkaline Phosphatase 93.7 Troponin I < 0.012 Total Protein 7.05 Albumin 4.48 Globulin 2.57 Albumin/Globulin Ratio 1.74 Adenovirus (PCR) Not detected B. pertussis DNA (PCR) Not detected B.parapertussis DNA PCR Not detected C. pneumoniae DNA (PCR) Not detected Coronavirus OC43 (PCR) Not detected Coronavirus HKU1 (PCR) Not detected Coronavirus 229E (PCR) Not detected Coronavirus NL63 (PCR) Not detected Human Metapneumovir PCR Not detected Influenza Type A (PCR) Not detected Influenza B (RT-PCR) Not detected M. pneumoniae (PCR) Not detected Parainfluenza 1 (PCR) Not detected Parainfluenza 2 (PCR) Not detected Parainfluenza 3 (PCR) Not detected Parainfluenza 4 (PCR) Not detected RSV (PCR) Not detected Entero/Rhino (PCR) Not detected SARS-CoV-2 (PCR) Not detected Orders Category Date Time Status EKG-(ED ONLY) Stat CARDIO 02/25/21 09:29 Completed METERED DOSE INHALATION Routine CARDIO 02/25/21 09:30 Completed CBC W/ AUTO DIFF Stat LAB 02/25/21 09:44 Completed COMPREHENSIVE METABOLIC PANEL Stat LAB 02/25/21 09:44 Completed RESPIRATORY PANEL 2.1 (PCR) Stat LAB 02/25/21 09:40 Completed TROPONIN I Stat LAB 02/25/21 09:44 Completed URINALYSIS C & S IF INDICATED Stat LAB 02/25/21 09:29 Uncollected Acetaminophen [Tylenol] MEDS 02/25/21 11:41 Discontinued 650 mg PO ONCE ONE Albuterol Inhaler(with Spacer) [Ventolin Hfa (Per Puff- MEDS 02/25/21 09:29 Discontinued with Spacer)] 2 puff IH ONCE ONE Alprazolam [Xanax] MEDS 02/25/21 10:27 Discontinued 0.5 mg PO ONCE ONE Clonidine HCl [Catapres] MEDS 02/25/21 09:29 Discontinued 0.1 mg PO ONCE ONE Methylprednisolone Sod Succ/Pf [Solu-Medrol 125 mg] MEDS 02/25/21 09:29 Discontinued 125 mg IVP ONCE ONE Sodium Chloride 0.9% [Sodium Chloride] 1,000 ml MEDS 02/25/21 09:29 Discontinued IV BOLUS CHEST, 1V AP ONLY Stat RADS 02/25/21 09:29 Completed Medications Discontinued Medications Generic Name Dose Route Start Last Admin Trade Name Freq PRN Reason Stop Dose Admin Acetaminophen 650 mg 02/25/21 11:41 Acetaminophen 325 Mg Tablet PO 02/25/21 11:42 ONCE ONE Albuterol Sulfate 2 puff 02/25/21 09:29 02/25/21 09:53 Albuterol Sulfate (Ventolin Hfa) 18 Gm 1 Puff With Spacer IH 02/25/21 09:30 2 puff ONCE ONE Administration Alprazolam 0.5 mg 02/25/21 10:27 02/25/21 10:35 Alprazolam 0.5 Mg Tablet PO 02/25/21 10:28 0.5 mg ONCE ONE Administration Clonidine 0.1 mg 02/25/21 09:29 02/25/21 09:49 Clonidine Hcl 0.1 Mg Tablet PO 02/25/21 09:30 0.1 mg ONCE ONE Administration Sodium Chloride 1,000 mls @ 1,000 mls/hr 02/25/21 09:29 02/25/21 10:35 Sodium Chloride IV 02/25/21 10:28 1,000 mls/hr BOLUS STA Administration Methylprednisolone Sodium Succinate 125 mg 02/25/21 09:29 02/25/21 09:49 Methylprednisolone Sod Succ/Pf 125 Mg/2 Ml Vial IVP 02/25/21 09:30 125 mg ONCE ONE Administration Vital Signs: Temp Pulse Resp BP Pulse Ox 02/25/21 10:06 146/101 H 96 02/25/21 09:23 98.3 F 76 20 185/113 H 95 Discharge Plan Discharge Patient Disposition: ADMITTED INPATIENT Discharge Problem: COPD (chronic obstructive pulmonary disease) Prescriptions: No Action diltiazem HCl 60 MG capsule,extended release 12 hr 60 mg PO BID RF: 0 albuterol sulfate [ProAir HFA] 90 mcg/actuation Hfa Aerosol Inhaler 2 puff INHALATION QID PRN (Reason: Shortness Of Breath Or Wheezing) RF: 0 lovastatin 40 mg Tablet 40 mg PO DAILY RF: 0 alprazolam [Xanax] 0.5 mg Tablet 0.5 mg PO TID RF: 0 tizanidine [Zanaflex] 4 mg tablet 4 mg PO Q12HR PRN (Reason: Pain) RF: 0 levothyroxine [Synthroid] 50 mcg tablet 50 mcg PO DAILY RF: 0 hydrocodone-acetaminophen [[place]] 1 EACH tablet 1 tab PO Q6H PRN (Reason: Pain) RF: 0 aspirin 81 MG tablet,delayed release (DR/EC) 81 mg PO BEDTIME RF: 0 metformin 500 mg tablet 500 mg PO BID RF: 0 ED Provider: CINTIA DAUGHERTY Condition: Stable Physician Progress Note: pt improved, troponin and covid negative, pt refused abg full admit d/w Dr Diaz to [facility] for copd []
[2021-02-25 09:48] LABS: BORDETELLA PARAPERTUSSIS (PCR) NOT DETECTED (NOT DETECT); BORDETELLA PERTUSSIS (PCR) NOT DETECTED (NOT DETECT); CHLAMYDIA PNEUMONIAE (PCR) NOT DETECTED (NOT DETECT); CORONAVIRUS 229E (PCR) NOT DETECTED (NOT DETECT); CORONAVIRUS HKU1 (PCR) NOT DETECTED (NOT DETECT); CORONAVIRUS NL63 (PCR) NOT DETECTED (NOT DETECT); CORONAVIRUS OC43 (PCR) NOT DETECTED (NOT DETECT); HUMAN METAPNEUMOVIRUS (PCR) NOT DETECTED (NOT DETECT); HUMAN RHINOVIRUS/ENTEROV (PCR) NOT DETECTED (NOT DETECT); INFLUENZA B (PCR) NOT DETECTED (NOT DETECT); MYCOPLASMA PNEUMONIAE (PCR) NOT DETECTED (NOT DETECT); PARAINFLUENZA VIRUS 1 (PCR) NOT DETECTED (NOT DETECT); PARAINFLUENZA VIRUS 2 (PCR) NOT DETECTED (NOT DETECT); PARAINFLUENZA VIRUS 3 (PCR) NOT DETECTED (NOT DETECT); PARAINFLUENZA VIRUS 4 (PCR) NOT DETECTED (NOT DETECT); RESPIRATORY SYNCYTIAL V (PCR) NOT DETECTED (NOT DETECT); SARS_COV_2 (PCR) NOT DETECTED (NOT DETECT)
[2021-02-25 09:50] LABS: BASOPHILS % (AUTO) 0.5 % (0.0-3.0); EOSINOPHILS # (AUTO) 0.1 K/ul (0.0-0.7); EOSINOPHILS % (AUTO) 1.2 % (0.0-7.0); HEMATOCRIT 36.1 % (37.0-47.0); HEMOGLOBIN 13.1 g/dl (12.0-16.0); IMMATURE GRANULOCYTE # (AUTO) 0.1 (0.0-1.0); IMMATURE GRANULOCYTE % (AUTO) 0.8 % (0.0-5.0); LYMPHOCYTES # (AUTO) 1.4 K/uL (0.60-3.4); LYMPHOCYTES % (AUTO) 20.7 (10.0-50.0); MEAN CORPUSCULAR HEMOGLOBIN 31.6 pg (27.0-31.0); MEAN CORPUSCULAR HGB CONC 36.3 (31.8-35.4); MONOCYTES # (AUTO) 0.4 K/uL (0.4-2.0); MONOCYTES % (AUTO) 5.8 (0-10); NEUTROPHILS # (AUTO) 4.6 K/ul (2.0-6.9); PLATELET COUNT 231 10^3/uL (140-440); RDW COEFFICIENT OF VARIATION 12.1 % (11.6-14.8); RED BLOOD COUNT 4.15 10^6/ul (4.20-5.40); WHITE BLOOD COUNT 6.53 K/ul (4.6-10.2)
[2021-02-25] MEDS ORDERED: ATIVAN IVP ONE (09:58)
[2021-02-25] MEDS ORDERED: TYLENOL PO ONE ×2 (09:58→11:41)
[2021-02-25 10:01] LABS: ALANINE AMINOTRANSFERASE 20.4 U/L (0-35); ALBUMIN 4.48 g/dL (3.5-5.0); ALKALINE PHOSPHATASE 93.7 U/L (53-141); ASPARTATE AMINO TRANSFERASE 28.1 U/L (14-36); BILIRUBIN,TOTAL 0.96 mg/dL (0.2-1.3); BLOOD UREA NITROGEN 14.4 mg/dL (7-17); CALCIUM 9.18 mg/dL (8.4-10.2); CARBON DIOXIDE 24.9 mmol/L (22-30.0); CHLORIDE 97.4 mmol/L (98-107); CREATININE 0.58 mg/dL (0.60-1.30); POTASSIUM 4.14 mmol/L (3.5-5.1); SODIUM 129.6 mmol/L (134.5-145); TOTAL PROTEIN 7.05 g/dL (6.3-8.2)
[2021-02-25 10:13] LABS: TROPONIN I < 0.012 ng/ml (0.0000-0.120)
[2021-02-25] MEDS ORDERED: XANAX PO ONE (10:27)
[2021-02-25 11:02] LABS: ADENOVIRUS (PCR) NOT DETECTED (NOT DETECT)
--- NOTE | 2021-02-25 11:40 | DI ---
EXAM: Chest one view, frontal view only. HISTORY: Cough. COMPARISON: 02/14/2020. FINDINGS: Patient rotation to the right. The heart size is normal. There is no pulmonary vascular congestion. The lungs are clear save for stable right middle lobe scarring. No pleural effusion or pneumothorax is seen. No acute osseous abnormality is identified. Since the prior study, there has been no significant interval change. IMPRESSION: No acute cardiopulmonary process.
[2021-02-25] MEDS ORDERED: VENTOLIN HFA (PER PUFF-WITH SPACER) IH PRN (11:46)
[2021-02-25] MEDS ORDERED: TYLENOL PO PRN (11:50)
[2021-02-25] MEDS ORDERED: ZOFRAN 4 MG/2 ML IVP STA (11:50)
[2021-02-25] MEDS ORDERED: NITROSTAT SL PRN (11:50)
[2021-02-25] MEDS ORDERED: ATROPINE SULFATE PFS IVP PRN (11:50)
[2021-02-25] MEDS ORDERED: PROTONIX IV 80 MG in SODIUM CHLORIDE 100 ML IV SCH (12:00)
[2021-02-25] MEDS: PROTONIX IV IVP SCH ×2 (13:02→20:30)
[2021-02-25] MEDS: NORCO 10-325 PO PRN ×2 (13:02→21:25)
[2021-02-25] MEDS: ROCEPHIN 1 GM/50 ML D5W 1 GM/50 ML BAG IV SCH (13:02)
[2021-02-25 13:20] LABS: BILIRUBIN,URINE Negative (NEGATIVE); CLARITY,URINE Clear (CLEAR); COLOR,URINE Yellow (YELLOW); GLUCOSE, URINE (UA) Negative (NEGATIVE); KETONES,URINE Negative (NEGATIVE); LEUKOCYTE ESTERASE ,URINE Negative (NEGATIVE); NITRITE,URINE Negative (NEGATIVE); PH,URINE 7.5 (5-9); PROTEIN,URINE Trace (NEGATIVE); URINE, BLOOD Negative (NEGATIVE); UROBILINOGEN,URINE 0.2 (0.2)
[2021-02-25 13:28] LABS: SQUAMOUS EPITHELIAL CELL,UR TNTC (0-5)
[2021-02-25 13:56] VITALS: BMI 40.4
[2021-02-25] MEDS: XANAX PO SCH ×3 (14:45→20:31)
[2021-02-25] MEDS: GLUCOPHAGE PO SCH (17:23)
[2021-02-25 18:00] LABS: CREATINE KINASE 72.1 U/L (30-135)
[2021-02-25 18:14] LABS: TROPONIN I < 0.012 ng/ml (0.0000-0.120)
[2021-02-25] MEDS: ASPIRIN EC PO SCH (20:28)
[2021-02-25] MEDS: CARDIZEM PO SCH (20:29)
[2021-02-25] MEDS: PRAVACHOL PO SCH (20:30)
[2021-02-25] MEDS: VENTOLIN HFA (PER PUFF-WITH SPACER) IH SCH (21:00)
[2021-02-25] MEDS ORDERED: SOLU-MEDROL 40 MG IVP SCH (21:00)
[2021-02-25] MEDS ORDERED: DILTIAZEM HCL 60 MG PO SCH (21:00)
[2021-02-26 01:54] LABS: BASOPHILS % (AUTO) 0.4 % (0.0-3.0); HEMATOCRIT 35.9 % (37.0-47.0); HEMOGLOBIN 13.1 g/dl (12.0-16.0); IMMATURE GRANULOCYTE # (AUTO) 0.1 (0.0-1.0); IMMATURE GRANULOCYTE % (AUTO) 2.1 % (0.0-5.0); LYMPHOCYTES # (AUTO) 0.8 K/uL (0.60-3.4); LYMPHOCYTES % (AUTO) 14.1 (10.0-50.0); MEAN CORPUSCULAR HEMOGLOBIN 31.6 pg (27.0-31.0); MEAN CORPUSCULAR HGB CONC 36.5 (31.8-35.4); MEAN CORPUSCULAR VOLUME 86.7 fl (81.0-99.0); MONOCYTES # (AUTO) 0.1 K/uL (0.4-2.0); MONOCYTES % (AUTO) 1.2 (0-10); NEUTROPHILS # (AUTO) 4.7 K/ul (2.0-6.9); NEUTROPHILS % (AUTO) 82.2 % (42.2-75.2); PLATELET COUNT 221 10^3/uL (140-440); RDW COEFFICIENT OF VARIATION 12.1 % (11.6-14.8); RED BLOOD COUNT 4.14 10^6/ul (4.20-5.40); WHITE BLOOD COUNT 5.69 K/ul (4.6-10.2)
[2021-02-26 02:05] LABS: ALANINE AMINOTRANSFERASE 19.6 U/L (0-35); ALBUMIN 4.29 g/dL (3.5-5.0); ALKALINE PHOSPHATASE 89.5 U/L (53-141); BILIRUBIN,TOTAL 0.59 mg/dL (0.2-1.3); BLOOD UREA NITROGEN 19.4 mg/dL (7-17); CALCIUM 9.01 mg/dL (8.4-10.2); CARBON DIOXIDE 22.8 mmol/L (22-30.0); CHLORIDE 101.7 mmol/L (98-107); CREATINE KINASE 72.6 U/L (30-135); CREATININE 0.57 mg/dL (0.60-1.30); GLUCOSE 224.9 mg/dL (74-106); POTASSIUM 4.71 mmol/L (3.5-5.1); SODIUM 132.8 mmol/L (134.5-145); TOTAL PROTEIN 6.88 g/dL (6.3-8.2)
[2021-02-26 02:17] LABS: TROPONIN I < 0.012 ng/ml (0.0000-0.120)
[2021-02-26] MEDS: NORCO 10-325 PO PRN ×3 (03:21→20:45)
[2021-02-26] MEDS: VENTOLIN HFA (PER PUFF-WITH SPACER) IH SCH ×3 (05:05→20:28)
[2021-02-26] MEDS: SYNTHROID PO SCH (05:45)
[2021-02-26] MEDS: XANAX PO SCH ×3 (08:28→20:45)
--- NOTE | 2021-02-26 09:13 | PCM.PROG ---
Attending Provider: ATTENDING PROVIDER: Dr. SHIRA DIAZ This patient is seen with Lelo Norman, Nurse Practitioner. DATE OF SERVICE: 02/26/21 SUBJECTIVE: This 75 year old /WHITE F was hospitalized 02/25/21. The patient is resting comfortably. She is anxious this morning. No more nausea and shortness of breath has improved. REVIEW OF SYSTEMS: CONSTITUTIONAL: No night sweats. No fatigue, malaise, lethargy. No fever or chills. HEENT: Eyes: No visual changes. No eye pain. No eye discharge. ENT: No runny nose. No epistaxis. No sinus pain. No odynophagia. No congestion. RESPIRATORY: Cough, no congestion. No hemoptysis. No shortness of breath. CARDIOVASCULAR: No angina symptoms. No CHF symptoms. No atypical chest pain for CAD. No palpitations. No orthopnea.. GASTROINTESTINAL: No abdominal pain. No nausea or vomiting. No diarrhea or constipation. No hematemesis. No hematochezia. GENITOURINARY: No urgency. No frequency. No dysuria. No hematuria. No obstructive symptoms. No discharge. No pain. No significant abnormal bleeding. MUSCULOSKELETAL: No musculoskeletal pain; no joint swelling. NEUROLOGICAL: Awake, alert, oriented to time, place and person. No headache. No neck pain. No syncope. No seizures. No dizziness. PSYCHIATRIC: Anxious. No depression. No suicidal thoughts. No homicidal thoughts. SKIN: No rash. No lesions. No wounds. ENDOCRINE: No unexplained weight loss. No weight gain. HEMATOLOGIC/LYMPHATIC: No anemia. No purpura. No petechiae. No prolonged or excessive bleeding. No palpable lymph nodes. PHYSICAL EXAMINATION: GENERAL: The patient is awake, alert and oriented, sitting in bed in no distress. VITAL SIGNS: Temperature 98.4 F, Pulse 78, Respiratory Rate 18, BP 149/86, Pulse Ox 95% HEENT: Head normocephalic, atraumatic. Eyes: Extraocular muscles are intact. Pupils are equal, round and reactive to light and accommodation. Ears: No lesions. Nose appeared normal. Throat: No exudate or erythema. NECK: Supple. No JVD, no carotid bruit. No lymphadenopathy or thyromegaly. LUNGS: Diminished breath sounds. Clear to auscultation. Percussion note normal. Chest symmetrical. HEART: S1, S2, no S3. No murmurs. No cyanosis or clubbing. No ascites. Pulses: Dorsalis pedis and posterior tibial pulses +1 to +2 both sides. ABDOMEN: Soft. Non-tender. Bowel sounds active. No CVA tenderness. No mass felt. EXTREMITIES: No edema. Full range of motion of all extremities, equal. NEUROLOGIC: No focal deficit. Cranial nerves II through XII are grossly intact. No headache. No double vision. SKIN: Not dry. Intact. Turgor-normal. LYMPHATIC: No palpable lymph nodes/no lymphedema. MUSCULOSKELETAL: Normal joints with no swelling. Muscle tone is normal. LAB REVIEW: 02/26/21 01:47 02/26/21 01:47 02/26/21 01:47: WBC 5.69, RBC 4.14 L, Hgb 13.1, Hct 35.9 L, MCV 86.7, MCH 31.6 H , MCHC 36.5 H, RDW Coeff of [place] 12.1, Plt Count 221, Immature Gran % (Auto) 2.1, Neut % (Auto) 82.2 H, Lymph % (Auto) 14.1, [place] % (Auto) 1.2, Eos % (Auto) 0.0, Baso % (Auto) 0.4, Neut # (Auto) 4.7, Lymph # (Auto) 0.8, [place] # (Auto) 0.1 L, Eos # (Auto) 0.0, Baso # (Auto) 0.0, Immature Gran # (Auto) 0.1 02/26/21 01:47: Sodium 132.8 L, Potassium 4.71, Chloride 101.7, Carbon Dioxide 22.8, Anion Gap 13.01, BUN 19.4 H, Creatinine 0.57 L, Estimated GFR (MDRD) 104.00, BUN/Creatinine Ratio 34.03, Glucose 224.9 H D, Calcium 9.01, Total Bilirubin 0.59, AST 23.0, ALT 19.6, Alkaline Phosphatase 89.5, Total Creatine Kinase 72.6, Troponin I < 0.012, Total Protein 6.88, Albumin 4.29, Globulin 2.59, Albumin/Globulin Ratio 1.65 02/25/21 17:47: Total Creatine Kinase 72.1, Troponin I < 0.012 02/25/21 12:50: Urine Color Yellow, Urine Clarity Clear, Urine pH 7.5, Ur Specific [place] 1.020, Urine Protein Trace H, Urine Glucose (UA) Negative, Urine Ketones Negative, Urine Blood Negative, Urine Nitrite Negative, Urine Bilirubin Negative, Urine Urobilinogen 0.2, Ur Leukocyte Esterase Negative, Ur Squamous Epith Cells [facility] 02/25/21 09:44: Sodium 129.6 L, Potassium 4.14, Chloride 97.4 L, Carbon Dioxide 24.9, Anion Gap 11.44, BUN 14.4, Creatinine 0.58 L, Estimated GFR (MDRD) 102.00, BUN/Creatinine Ratio 24.82, Glucose 172.0 H, Calcium 9.18, Total Bilirubin 0.96, AST 28.1, ALT 20.4, Alkaline Phosphatase 93.7, Troponin I < 0.012, Total Protein 7.05, Albumin 4.48, Globulin 2.57, Albumin/Globulin Ratio 1.74 02/25/21 09:44: WBC 6.53, RBC 4.15 L, Hgb 13.1, Hct 36.1 L, MCV 87.0, MCH 31.6 H , MCHC 36.3 H, RDW Coeff of [place] 12.1, Plt Count 231, Immature Gran % (Auto) 0.8, Neut % (Auto) 71.0, Lymph % (Auto) 20.7, [place] % (Auto) 5.8, Eos % (Auto) 1.2, Baso % (Auto) 0.5, Neut # (Auto) 4.6, Lymph # (Auto) 1.4, [place] # (Auto) 0.4, Eos # (Auto) 0.1, Baso # (Auto) 0.0, Immature Gran # (Auto) 0.1 02/25/21 09:40: Adenovirus (PCR) Not detected, B. pertussis DNA (PCR) Not detected, B.parapertussis DNA PCR Not detected, C. pneumoniae DNA (PCR) Not detected, Coronavirus OC43 (PCR) Not detected, Coronavirus HKU1 (PCR) Not detected, Coronavirus 229E (PCR) Not detected, Coronavirus NL63 (PCR) Not detected, Human Metapneumovir PCR Not detected, Influenza Type A (PCR) Not detected, Influenza B (RT-PCR) Not detected, M. pneumoniae (PCR) Not detected, Parainfluenza 1 (PCR) Not detected, Parainfluenza 2 (PCR) Not detected, Parainfluenza 3 (PCR) Not detected, Parainfluenza 4 (PCR) Not detected, RSV (PCR) Not detected, Entero/Rhino (PCR) Not detected, SARS-CoV-2 (PCR) Not detected ASSESSMENT: Please see below. 1. Shortness of breath, improved 2. Acute COPD exacerbation 3. Acute gastritis, improved 4. Anxiety 5. Hyponatremia, improved. PLAN: 1. T4 TSH 2. Discontinue Solu-Medrol 3. Protonix 40mg BID 4. Prednisone 20mg daily Plan and coordination of the patient's care discussed in the presence of Mall Manager and nurse. SCRIBED BY: Kelly HERCULES scribed while in presence of service performed by Dr. Diaz/Lelo Norman APRN on 02/26/21 ([id number])
[2021-02-26] MEDS: GLUCOPHAGE PO SCH ×2 (09:27→17:06)
[2021-02-26] MEDS: CARDIZEM PO SCH ×2 (09:27→20:45)
[2021-02-26] MEDS: PREDNISONE PO SCH (09:27)
[2021-02-26] MEDS: PROTONIX PO SCH ×2 (09:27→17:06)
[2021-02-26] MEDS: ROCEPHIN 1 GM/50 ML D5W 1 GM/50 ML BAG IV SCH (09:29)
--- NOTE | 2021-02-26 11:35 | PN ---
DATE OF SERVICE: 02/25/2021 ADMIT NOTE SUBJECTIVE: 75 year old white female hospitalized with shortness of breath. The patient has acute exacerbation of COPD. The patient is heavy smoker. She is under a lot of stress. She is to undergo cochlear placement next month. The patient had nausea and vomiting. The vomiting started on the morning of hospitalization, three times. At present time the patient is feeling hungry. REVIEW OF SYSTEMS: CONSTITUTIONAL: No night sweats. No fatigue, malaise, lethargy. No fever or chills. HEENT: Eyes: No visual changes. No eye pain. No eye discharge. ENT: No runny nose. No epistaxis. No sinus pain. No sore throat. No odynophagia. No congestion. RESPIRATORY: No cough, no congestion. No hemoptysis. Shortness of breath. CARDIOVASCULAR: No angina symptoms. No CHF symptoms. No atypical chest pain for CAD. No palpitations. No PND. No orthopnea. GASTROINTESTINAL: No abdominal pain. No nausea and vomiting. No diarrhea or constipation. No hematemesis. No hematochezia. GENITOURINARY: No urgency. No frequency. No dysuria. No hematuria. No obstructive symptoms. No discharge. No pain. No significant abnormal bleeding. MUSCULOSKELETAL: No musculoskeletal pain; no joint swelling. NEUROLOGICAL: No headache. No neck pain. No syncope. No seizures. No dizziness. PSYCHIATRIC: Not anxious. No depression. No suicidal thoughts. No homicidal thoughts. SKIN: No rash. No lesions. No wounds. ENDOCRINE: No unexplained weight loss. No weight gain. HEMATOLOGIC/LYMPHATIC: No anemia. No purpura. No petechiae. No prolonged or excessive bleeding. No palpable lymph nodes. PHYSICAL EXAMINATION: VITAL SIGNS: Temperature 98.3, pulse 76, respiratory rate 20, blood pressure 146/100, pulse ox 96%. HEENT: Head normocephalic, atraumatic. Eyes: Extraocular muscles are intact. Pupils are equal, round and reactive to light and accommodation. Ears: No lesions. Nose appeared normal. Throat: No exudate or erythema. NECK: Supple. No JVD, no carotid bruit. No lymphadenopathy or thyromegaly. LUNGS: Decreased breath sounds but clear to auscultation. Percussion note normal. Chest symmetrical. HEART: S1, S2, no S3. No murmurs. No cyanosis or clubbing. No ascites. Pulses: Dorsalis pedis and posterior tibial pulses +1 to +2 bilaterally. ABDOMEN: Soft. Nontender. Bowel sounds active. No CVA tenderness. No mass felt. EXTREMITIES: No edema. Full range of motion of all extremities, equal. NEUROLOGIC: No focal deficit. Cranial nerves II through XII are grossly intact. No headache. No double vision. SKIN: Not dry. Intact. Turgor - normal. LYMPHATIC: No palpable lymph nodes/no lymphedema. MUSCULOSKELETAL: Normal joints with no swelling. Muscle tone is normal. LABS: Hgb 13, hct 36, WBC 6,500 normal differential, creatinine 0.5, BUN 14, potassium 4.1, sodium 129, sugar 172. SARS negative. ASSESSMENT: 1. Acute gastritis with vomiting 2. Shortness of breath with cough and congestion with exacerbation of COPD 3. Morbid obesity 4. Hyponatremia 5. Hyperglycemia PLAN: 1. The patient is going to be treated with IV fluids, NEBS and antibiotics 2. Blood pressure is elevated which again was checked 138/92. We will monitor the patient's blood pressure and make appropriate changes 3. Strongly advised to lose weight and cut down on salt intake 4. Diet for weight loss discussed. CONDITION: Stable for now. TIME SPENT: More than 30 minutes. Plan and coordination of the patient's care discussed in the presence of nurse. SUSAN
[2021-02-26] MEDS ORDERED: MEVACOR PO SCH (17:00)
[2021-02-26] MEDS: ASPIRIN EC PO SCH (20:45)
[2021-02-26] MEDS: PRAVACHOL PO SCH (20:46)
[2021-02-27] MEDS: VENTOLIN HFA (PER PUFF-WITH SPACER) IH SCH ×3 (04:45→20:05)
[2021-02-27 05:24] LABS: BASOPHILS % (AUTO) 0.3 % (0.0-3.0); EOSINOPHILS % (AUTO) 0.4 % (0.0-7.0); HEMATOCRIT 35.9 % (37.0-47.0); HEMOGLOBIN 12.7 g/dl (12.0-16.0); IMMATURE GRANULOCYTE # (AUTO) 0.1 (0.0-1.0); LYMPHOCYTES % (AUTO) 31.3 (10.0-50.0); MEAN CORPUSCULAR HEMOGLOBIN 31.5 pg (27.0-31.0); MEAN CORPUSCULAR HGB CONC 35.4 (31.8-35.4); MEAN CORPUSCULAR VOLUME 89.1 fl (81.0-99.0); MONOCYTES # (AUTO) 0.7 K/uL (0.4-2.0); MONOCYTES % (AUTO) 7.5 (0-10); NEUTROPHILS # (AUTO) 5.7 K/ul (2.0-6.9); NEUTROPHILS % (AUTO) 59.5 % (42.2-75.2); PLATELET COUNT 254 10^3/uL (140-440); RDW COEFFICIENT OF VARIATION 12.4 % (11.6-14.8); RED BLOOD COUNT 4.03 10^6/ul (4.20-5.40); WHITE BLOOD COUNT 9.67 K/ul (4.6-10.2)
[2021-02-27] MEDS: SYNTHROID PO SCH (05:32)
[2021-02-27] MEDS: PROTONIX PO SCH ×2 (05:33→17:08)
[2021-02-27 05:41] LABS: ALANINE AMINOTRANSFERASE 18.8 U/L (0-35); ALBUMIN 4.22 g/dL (3.5-5.0); ALKALINE PHOSPHATASE 76.5 U/L (53-141); ASPARTATE AMINO TRANSFERASE 25.1 U/L (14-36); BILIRUBIN,TOTAL 0.68 mg/dL (0.2-1.3); CALCIUM 8.9 mg/dL (8.4-10.2); CARBON DIOXIDE 25.7 mmol/L (22-30.0); CHLORIDE 103.2 mmol/L (98-107); CREATININE 0.56 mg/dL (0.60-1.30); GLUCOSE 133.5 mg/dL (74-106); POTASSIUM 4.08 mmol/L (3.5-5.1); SODIUM 135.6 mmol/L (134.5-145); TOTAL PROTEIN 6.77 g/dL (6.3-8.2)
[2021-02-27] MEDS: XANAX PO SCH ×3 (08:20→20:31)
[2021-02-27] MEDS: ROCEPHIN 1 GM/50 ML D5W 1 GM/50 ML BAG IV SCH (08:20)
[2021-02-27] MEDS: NORCO 10-325 PO PRN ×2 (08:30→17:19)
[2021-02-27] MEDS: PREDNISONE PO SCH (10:43)
[2021-02-27] MEDS: GLUCOPHAGE PO SCH ×2 (10:54→17:08)
[2021-02-27] MEDS: HYZAAR 50-12.5 MG TAB PO SCH (10:54)
[2021-02-27] MEDS: CARDIZEM PO SCH ×2 (10:54→20:31)
--- NOTE | 2021-02-27 11:21 | PCM.PROG ---
Attending Provider: ATTENDING PROVIDER: Dr. SHIRA DIAZ DATE OF SERVICE: 02/27/21 SUBJECTIVE: This 75 year old /WHITE F was hospitalized 02/25/21 with shortness of breath with COPD, acute bronchitis, and dehydration. Condition is improved. She is anxious. Will discontinue steroids. The patient is a heavy smoker. REVIEW OF SYSTEMS: CONSTITUTIONAL: No night sweats. No fatigue, malaise, lethargy. No fever or chills. HEENT: Eyes: No visual changes. No eye pain. No eye discharge. ENT: No runny nose. No epistaxis. No sinus pain. No odynophagia. No congestion. RESPIRATORY: Cough practically resolved. No hemoptysis. No shortness of breath. CARDIOVASCULAR: No angina symptoms. No CHF symptoms. No atypical chest pain for CAD. No palpitations. No orthopnea.. GASTROINTESTINAL: No abdominal pain. No nausea or vomiting. No diarrhea or constipation. No hematemesis. No hematochezia. GENITOURINARY: No urgency. No frequency. No dysuria. No hematuria. No obstructive symptoms. No discharge. No pain. No significant abnormal bleeding. MUSCULOSKELETAL: No musculoskeletal pain; no joint swelling. NEUROLOGICAL: Awake, alert, oriented to time, place and person. No headache. No neck pain. No syncope. No seizures. No dizziness. PSYCHIATRIC: Anxious. No depression. No suicidal thoughts. No homicidal thoughts. SKIN: No rash. No lesions. No wounds. ENDOCRINE: No unexplained weight loss. No weight gain. HEMATOLOGIC/LYMPHATIC: No anemia. No purpura. No petechiae. No prolonged or excessive bleeding. No palpable lymph nodes. PHYSICAL EXAMINATION: GENERAL: The patient is awake, alert and oriented, lying/sitting in bed in no distress. VITAL SIGNS: Temperature 98.1 F, Pulse 72, Respiratory Rate 18, BP 164/88, Pulse Ox 99% HEENT: Head normocephalic, atraumatic. Eyes: Extraocular muscles are intact. Pupils are equal, round and reactive to light and accommodation. Ears: No lesions. Nose appeared normal. Throat: No exudate or erythema. NECK: Supple. No JVD, no carotid bruit. No lymphadenopathy or thyromegaly. LUNGS: Decreased breath sounds, good air entry. Clear to auscultation. Percussion note normal. Chest symmetrical. HEART: S1, S2, no S3. No murmurs. No cyanosis or clubbing. No ascites. Pulses: Dorsalis pedis and posterior tibial pulses +1 to +2 both sides. ABDOMEN: Soft. Non-tender. Bowel sounds active. No CVA tenderness. No mass felt. EXTREMITIES: No edema. Full range of motion of all extremities, equal. NEUROLOGIC: No focal deficit. Cranial nerves II through XII are grossly intact. No headache, no double vision or headache. SKIN: Warm and dry. Intact. Turgor-better. LYMPHATIC: No palpable lymph nodes/no lymphedema. MUSCULOSKELETAL: Normal joints with no swelling. Muscle tone is normal. LAB REVIEW: 02/27/21 04:56 02/27/21 04:56 02/27/21 04:56: Sodium 135.6, Potassium 4.08, Chloride 103.2, Carbon Dioxide 25.7, Anion Gap 10.78, BUN 27.0 H, Creatinine 0.56 L, Estimated GFR (MDRD) 106.00, BUN/Creatinine Ratio 48.21, Glucose 133.5 H, Calcium 8.90, Total Bilirubin 0.68, AST 25.1, ALT 18.8, Alkaline Phosphatase 76.5, Total Protein 6.77, Albumin 4.22, Globulin 2.55, Albumin/Globulin Ratio 1.65 02/27/21 04:56: WBC 9.67, RBC 4.03 L, Hgb 12.7, Hct 35.9 L, MCV 89.1, MCH 31.5 H , MCHC 35.4, RDW Coeff of [place] 12.4, Plt Count 254, Immature Gran % (Auto) 1.0, Neut % (Auto) 59.5, Lymph % (Auto) 31.3, [place] % (Auto) 7.5, Eos % (Auto) 0.4, Baso % (Auto) 0.3, Neut # (Auto) 5.7, Lymph # (Auto) 3.0, [place] # (Auto) 0.7, Eos # (Auto) 0.0, Baso # (Auto) 0.0, Immature Gran # (Auto) 0.1 ASSESSMENT: Please see below. 1. COPD with acute bronchitis, seems to be resolving. 2. Dehydration resolved. Skin turgor a lot better. PLAN: 1. Discontinue steroids that seem to be making her anxious according to her. 2. Continue antibiotics. 3. Counseling for smoking done. Plan and coordination of the patient's care discussed in the presence of Hydrogenation Operator and nurse. CONDITION: Stable SCRIBED BY: KATHY HAILE Cell Efficiency Supervisor scribed while in presence of service performed by Dr. SHIRA DIAZ on 02/27/21 ([id number])
--- NOTE | 2021-02-27 14:28 | HP ---
DATE OF SERVICE: 02/25/21 HISTORY OF PRESENT ILLNESS: 75-year-old white female who presents to the emergency room with shortness of breath, nonproductive cough since Tuesday, generalized weakness. She has had vomiting and diarrhea today. PAST MEDICAL HISTORY: Chronic dizziness COPD, oxygen dependent Hypertension History of hyponatremia Generalized anxiety disorder and depression - she sees Dr. Guo Chronic leg edema Detention heavy smoker Hypertension Dyslipidemia Obesity Chronic back pain - sees Dr. Copeland Noncompliance with diet, medications, lifestyle and followup Hearing loss PAST SURGICAL HISTORY: None REVIEW OF SYSTEMS: CONSTITUTIONAL: No night sweats. No fatigue, malaise, lethargy. No fever or chills. HEENT: Eyes: No visual changes. No eye pain. No eye discharge. ENT: No runny nose. No epistaxis. No sinus pain. No sore throat. No odynophagia. No ear pain. No congestion. RESPIRATORY: Positive for cough, shortness of breath. no congestion. No hemoptysis. CARDIOVASCULAR: No angina symptoms. No CHF symptoms. No atypical chest pain for CAD. No palpitations. No PND. No orthopnea. GASTROINTESTINAL: No abdominal pain. No nausea or vomiting. No diarrhea or constipation. No hematemesis. No hematochezia. GENITOURINARY: No urgency. No frequency. No dysuria. No hematuria. No obstructive symptoms. No discharge. No pain. No significant abnormal bleeding. MUSCULOSKELETAL: No musculoskeletal pain. No joint swelling. No arthritis. NEUROLOGICAL: No headache. No neck pain. No syncope. No seizures. No dizziness. PSYCHIATRIC: Anxious. No depression. No suicidal thoughts. No homicidal thoughts. SKIN: No rash. No lesions. No wounds. ENDOCRINE: No unexplained weight loss. No weight gain. HEMATOLOGIC/LYMPHATIC: No anemia. No purpura. No petechiae. No prolonged or excessive bleeding. No palpable lymph nodes. PERSONAL/FAMILY/SOCIAL HISTORY: She is . She lives at home by herself. Heavy smoker. No alcohol or ilicit drug use. MEDICATIONS: Hydrocodone-Acetaminophen one tab p.o.q.6h p.r.n. Diltiazem 60 mg p.o. b.i.d. Aspirin 81 mg p.o. bedtime Albuterol Sulfate two puff INH q.i.d. p.r.n. Alprazolam 0.5 mg p.o. b.i.d. Levothyroxine 50 mcg p.o. daily Tizanidine 4 mg p.o. q.12h p.r.n. Pantoprazole 40 mg p.o. q.d a.c. Pravastatin 80 mg p.o. bedtime Metformin 500 mg p.o. b.i.d. ALLERGIES: SIMVASTATIN, ATORVASTATIN, ROSUVASTATIN PHYSICAL EXAMINATION: VITAL SIGNS: Temperature 98.3, heart rate 76, respirations 20, blood pressure 146/101, pulse ox 96%. HEENT: Head normocephalic, atraumatic. Eyes: Extraocular muscles are intact. Pupils are equal, round and reactive to light and accommodation. Ears: No lesions. Nose appeared normal. Throat: No exudate or erythema. NECK: Supple. No JVD, no carotid bruit. No lymphadenopathy or thyromegaly. LUNGS: Clear to auscultation. Percussion note normal. Chest symmetrical. HEART: S1, S2, no S3. No murmur. No cyanosis or clubbing. No ascites. Pulses: Dorsalis pedis and posterior tibial pulses +1 to +2 bilaterally. ABDOMEN: Soft. Nontender. Bowel sounds active. No CVA tenderness. No mass felt. EXTREMITIES: No edema. Full range of motion of all extremities, equal. NEUROLOGIC: No focal deficit. Cranial nerves II through XII are grossly intact. No headache, no double vision or headache. SKIN: Not dry. Intact. Turgor - normal. LYMPHATIC: No palpable lymph nodes/no lymphedema. MUSCULOSKELETAL: Normal joints with no swelling. Muscle tone is normal. White count 6.5, hemoglobin 13.1, hematocrit 36.1, platelets 231. Sodium 129, potassium 4.14, BUN 14, creatinine 0.58, glucose 172. Urine shows trace protein, negative for leuks, negative for blood. Chest x-ray shows no acute process. Respiratory panel by PCR is negative. ASSESSMENT: 1. Hypertension 2. Hyponatremia 3. Acute gastritis 4. Acute COPD exacerbation 5. End-stage COPD, oxygen dependent PLAN: 1. We will admit. 2. Routine telemetry orders. 3. CBC, CMP daily. 4. Normal Saline IV at 100 cc/hr times 2L. 5. Solu-Medrol 125 mg IV q.8hr. 6. Rocephin 1 gm IV daily. 7. Zofran 4 mg IV q.6hr p.r.n. 8. Protonix 40 mg IV q.12hr. 9. Dukes diet. 10. Continue all home medications. 11. Oxygen at 1 to 2L. 12. The patient refused ABGs. 13. Will follow closely. TIME SPENT: More than 70 minutes. MTDD
[2021-02-27] MEDS: ASPIRIN EC PO SCH (20:31)
[2021-02-27] MEDS: PRAVACHOL PO SCH (20:31)
[2021-02-28] MEDS: VENTOLIN HFA (PER PUFF-WITH SPACER) IH SCH ×3 (04:35→20:02)
[2021-02-28 05:19] LABS: BASOPHILS # (AUTO) 0.1 K/uL (0-0.2); BASOPHILS % (AUTO) 0.6 % (0.0-3.0); EOSINOPHILS # (AUTO) 0.3 K/ul (0.0-0.7); EOSINOPHILS % (AUTO) 3.2 % (0.0-7.0); HEMOGLOBIN 13.1 g/dl (12.0-16.0); IMMATURE GRANULOCYTE # (AUTO) 0.1 (0.0-1.0); LYMPHOCYTES # (AUTO) 3.1 K/uL (0.60-3.4); LYMPHOCYTES % (AUTO) 32.8 (10.0-50.0); MEAN CORPUSCULAR HEMOGLOBIN 31.1 pg (27.0-31.0); MEAN CORPUSCULAR HGB CONC 35.4 (31.8-35.4); MEAN CORPUSCULAR VOLUME 87.9 fl (81.0-99.0); MONOCYTES # (AUTO) 0.7 K/uL (0.4-2.0); MONOCYTES % (AUTO) 7.5 (0-10); NEUTROPHILS # (AUTO) 5.2 K/ul (2.0-6.9); NEUTROPHILS % (AUTO) 54.9 % (42.2-75.2); PLATELET COUNT 266 10^3/uL (140-440); RDW COEFFICIENT OF VARIATION 12.4 % (11.6-14.8); RED BLOOD COUNT 4.21 10^6/ul (4.20-5.40); WHITE BLOOD COUNT 9.46 K/ul (4.6-10.2)
[2021-02-28 05:42] LABS: ALBUMIN 4.17 g/dL (3.5-5.0); ALKALINE PHOSPHATASE 81.2 U/L (53-141); ASPARTATE AMINO TRANSFERASE 27.5 U/L (14-36); BILIRUBIN,TOTAL 0.78 mg/dL (0.2-1.3); BLOOD UREA NITROGEN 27.4 mg/dL (7-17); CALCIUM 9.09 mg/dL (8.4-10.2); CARBON DIOXIDE 28.5 mmol/L (22-30.0); CHLORIDE 100.1 mmol/L (98-107); CREATININE 0.63 mg/dL (0.60-1.30); GLUCOSE 141.7 mg/dL (74-106); POTASSIUM 4.32 mmol/L (3.5-5.1); SODIUM 134.8 mmol/L (134.5-145); TOTAL PROTEIN 6.58 g/dL (6.3-8.2)
[2021-02-28] MEDS: SYNTHROID PO SCH (05:45)
[2021-02-28] MEDS: PROTONIX PO SCH ×2 (05:45→17:15)
[2021-02-28] MEDS: ROCEPHIN 1 GM/50 ML D5W 1 GM/50 ML BAG IV SCH (08:59)
[2021-02-28] MEDS: HYZAAR 50-12.5 MG TAB PO SCH (09:00)
[2021-02-28] MEDS: XANAX PO SCH ×3 (09:00→20:25)
[2021-02-28] MEDS: CARDIZEM PO SCH ×2 (09:00→20:25)
[2021-02-28] MEDS: GLUCOPHAGE PO SCH ×2 (09:00→17:15)
[2021-02-28] MEDS: NORCO 10-325 PO PRN ×2 (09:00→15:06)
[2021-02-28] MEDS: ASPIRIN EC PO SCH (20:26)
[2021-02-28] MEDS: PRAVACHOL PO SCH (20:26)
[2021-03-01] MEDS: VENTOLIN HFA (PER PUFF-WITH SPACER) IH SCH ×3 (04:33→19:55)
[2021-03-01 05:22] LABS: BASOPHILS # (AUTO) 0.1 K/uL (0-0.2); BASOPHILS % (AUTO) 0.7 % (0.0-3.0); EOSINOPHILS # (AUTO) 0.3 K/ul (0.0-0.7); EOSINOPHILS % (AUTO) 3.4 % (0.0-7.0); HEMATOCRIT 38.7 % (37.0-47.0); HEMOGLOBIN 13.4 g/dl (12.0-16.0); IMMATURE GRANULOCYTE # (AUTO) 0.1 (0.0-1.0); IMMATURE GRANULOCYTE % (AUTO) 0.9 % (0.0-5.0); LYMPHOCYTES # (AUTO) 2.7 K/uL (0.60-3.4); LYMPHOCYTES % (AUTO) 29.6 (10.0-50.0); MEAN CORPUSCULAR HEMOGLOBIN 30.6 pg (27.0-31.0); MEAN CORPUSCULAR HGB CONC 34.6 (31.8-35.4); MEAN CORPUSCULAR VOLUME 88.4 fl (81.0-99.0); MONOCYTES # (AUTO) 0.8 K/uL (0.4-2.0); MONOCYTES % (AUTO) 8.4 (0-10); NEUTROPHILS # (AUTO) 5.2 K/ul (2.0-6.9); PLATELET COUNT 288 10^3/uL (140-440); RDW COEFFICIENT OF VARIATION 12.5 % (11.6-14.8); RED BLOOD COUNT 4.38 10^6/ul (4.20-5.40); WHITE BLOOD COUNT 9.09 K/ul (4.6-10.2)
[2021-03-01] MEDS: NORCO 10-325 PO PRN ×3 (05:25→22:21)
[2021-03-01] MEDS: SYNTHROID PO SCH (05:30)
[2021-03-01] MEDS: PROTONIX PO SCH ×2 (05:30→16:04)
[2021-03-01 05:40] LABS: ALANINE AMINOTRANSFERASE 21.2 U/L (0-35); ALBUMIN 4.28 g/dL (3.5-5.0); ALKALINE PHOSPHATASE 92.5 U/L (53-141); ASPARTATE AMINO TRANSFERASE 18.8 U/L (14-36); BILIRUBIN,TOTAL 0.69 mg/dL (0.2-1.3); BLOOD UREA NITROGEN 30.6 mg/dL (7-17); CALCIUM 9.1 mg/dL (8.4-10.2); CARBON DIOXIDE 28.5 mmol/L (22-30.0); CHLORIDE 99.9 mmol/L (98-107); CREATININE 0.68 mg/dL (0.60-1.30); GLUCOSE 176.1 mg/dL (74-106); POTASSIUM 4.25 mmol/L (3.5-5.1); TOTAL PROTEIN 6.8 g/dL (6.3-8.2)
[2021-03-01] MEDS: HYZAAR 50-12.5 MG TAB PO SCH (08:54)
[2021-03-01] MEDS: XANAX PO SCH ×3 (08:54→20:30)
[2021-03-01] MEDS: CARDIZEM PO SCH ×2 (08:55→20:30)
[2021-03-01] MEDS: GLUCOPHAGE PO SCH ×2 (08:55→16:04)
[2021-03-01] MEDS ORDERED: KEFLEX PO SCH (09:00)
[2021-03-01] MEDS: PRAVACHOL PO SCH (20:29)
[2021-03-01] MEDS: ASPIRIN EC PO SCH (20:30)
[2021-03-01] MEDS: KEFLEX PO SCH (20:30)
[2021-03-02] MEDS: VENTOLIN HFA (PER PUFF-WITH SPACER) IH SCH (05:06)
[2021-03-02 05:12] LABS: BASOPHILS % (AUTO) 0.5 % (0.0-3.0); EOSINOPHILS # (AUTO) 0.3 K/ul (0.0-0.7); EOSINOPHILS % (AUTO) 3.9 % (0.0-7.0); HEMATOCRIT 36.5 % (37.0-47.0); HEMOGLOBIN 12.9 g/dl (12.0-16.0); IMMATURE GRANULOCYTE # (AUTO) 0.1 (0.0-1.0); IMMATURE GRANULOCYTE % (AUTO) 0.8 % (0.0-5.0); LYMPHOCYTES # (AUTO) 2.9 K/uL (0.60-3.4); LYMPHOCYTES % (AUTO) 33.7 (10.0-50.0); MEAN CORPUSCULAR HEMOGLOBIN 31.1 pg (27.0-31.0); MEAN CORPUSCULAR HGB CONC 35.3 (31.8-35.4); MONOCYTES # (AUTO) 0.7 K/uL (0.4-2.0); MONOCYTES % (AUTO) 8.4 (0-10); NEUTROPHILS # (AUTO) 4.5 K/ul (2.0-6.9); NEUTROPHILS % (AUTO) 52.7 % (42.2-75.2); PLATELET COUNT 281 10^3/uL (140-440); RDW COEFFICIENT OF VARIATION 12.3 % (11.6-14.8); RED BLOOD COUNT 4.15 10^6/ul (4.20-5.40); WHITE BLOOD COUNT 8.55 K/ul (4.6-10.2)
[2021-03-02 05:25] LABS: ALBUMIN 3.99 g/dL (3.5-5.0); ALKALINE PHOSPHATASE 91.6 U/L (53-141); ASPARTATE AMINO TRANSFERASE 20.3 U/L (14-36); BILIRUBIN,TOTAL 0.75 mg/dL (0.2-1.3); BLOOD UREA NITROGEN 32.7 mg/dL (7-17); CALCIUM 9.03 mg/dL (8.4-10.2); CARBON DIOXIDE 28.1 mmol/L (22-30.0); CHLORIDE 99.8 mmol/L (98-107); CREATININE 0.68 mg/dL (0.60-1.30); GLUCOSE 172.7 mg/dL (74-106); POTASSIUM 4.17 mmol/L (3.5-5.1); SODIUM 134.2 mmol/L (134.5-145); TOTAL PROTEIN 6.47 g/dL (6.3-8.2)
[2021-03-02 05:39] VITALS: BP 126/74; TEMP 97.9
[2021-03-02] MEDS: PROTONIX PO SCH (05:58)
[2021-03-02] MEDS: SYNTHROID PO SCH (05:58)
--- NOTE | 2021-03-02 08:51 | PN ---
DATE OF SERVICE: 02/26/2021 SUBJECTIVE: 75 year old white female hospitalized with COPD , bronchitis with shortness of air, dehydration. Her condition has improved. Creatinine 0.5 with BUN of 27 clearly indicating dehydration. The patient oral intake it better. The patient was seen and examined with the Nurse Practitioner. Continue the same treatment. TIME SPENT: More than 30 minutes. Plan and coordination of the patient's care discussed in the presence of nurse. SUSAN
--- NOTE | 2021-03-02 09:37 | PCM.PROG ---
Attending Provider: ATTENDING PROVIDER: Dr. SHIRA DIAZ This patient is seen with Lelo Norman, Nurse Practitioner. DATE OF SERVICE: 03/02/21 SUBJECTIVE: This 75 year old /WHITE F was hospitalized 02/25/21. Resting comfortably. The patient is eating well. She is up and about. Cough improved. REVIEW OF SYSTEMS: CONSTITUTIONAL: No night sweats. No fatigue, malaise, lethargy. No fever or chills. HEENT: Eyes: No visual changes. No eye pain. No eye discharge. ENT: No runny nose. No epistaxis. No sinus pain. No odynophagia. No congestion. RESPIRATORY: Cough. No hemoptysis. No shortness of breath. CARDIOVASCULAR: No angina symptoms. No CHF symptoms. No atypical chest pain for CAD. No palpitations. No orthopnea.. GASTROINTESTINAL: No abdominal pain. No nausea or vomiting. No diarrhea or constipation. No hematemesis. No hematochezia. GENITOURINARY: No urgency. No frequency. No dysuria. No hematuria. No obstructive symptoms. No discharge. No pain. No significant abnormal bleeding. MUSCULOSKELETAL: No musculoskeletal pain; no joint swelling. NEUROLOGICAL: Awake, alert, oriented to time, place and person. No headache. No neck pain. No syncope. No seizures. No dizziness. PSYCHIATRIC: Not anxious. No depression. No suicidal thoughts. No homicidal thoughts. SKIN: No rash. No lesions. No wounds. ENDOCRINE: No unexplained weight loss. No weight gain. HEMATOLOGIC/LYMPHATIC: No anemia. No purpura. No petechiae. No prolonged or excessive bleeding. No palpable lymph nodes. PHYSICAL EXAMINATION: GENERAL: The patient is awake, alert and oriented, lying/sitting in bed in no distress. VITAL SIGNS: Temperature 97.9 F, Pulse 74, Respiratory Rate 18, BP 126/74, Pulse Ox 99% HEENT: Head normocephalic, atraumatic. Eyes: Extraocular muscles are intact. Pupils are equal, round and reactive to light and accommodation. Ears: No les ions. Nose appeared normal. Throat: No exudate or erythema. NECK: Supple. No JVD, no carotid bruit. No lymphadenopathy or thyromegaly. LUNGS: Diminished breath sounds. Clear to auscultation. Percussion note normal. Chest symmetrical. HEART: S1, S2, no S3. No murmurs. No cyanosis or clubbing. No ascites. Pulses: Dorsalis pedis and posterior tibial pulses +1 to +2 both sides. ABDOMEN: Soft. Non-tender. Bowel sounds active. No CVA tenderness. No mass felt. EXTREMITIES: No edema. Full range of motion of all extremities, equal. NEUROLOGIC: No focal deficit. Cranial nerves II through XII are grossly intact. No headache. No double vision. SKIN: Not dry. Intact. Turgor-normal. LYMPHATIC: No palpable lymph nodes/no lymphedema. MUSCULOSKELETAL: Normal joints with no swelling. Muscle tone is normal. LAB REVIEW: 03/02/21 04:53 03/02/21 04:53 03/02/21 04:53: Sodium 134.2 L, Potassium 4.17, Chloride 99.8, Carbon Dioxide 28.1, Anion Gap 10.47, BUN 32.7 H, Creatinine 0.68, Estimated GFR (MDRD) 85.00, BUN/Creatinine Ratio 48.08, Glucose 172.7 H, Calcium 9.03, Total Bilirubin 0.75, AST 20.3, ALT 20.0, Alkaline Phosphatase 91.6, Total Protein 6.47, Albumin 3.99, Globulin 2.48, Albumin/Globulin Ratio 1.60 03/02/21 04:53: WBC 8.55, RBC 4.15 L, Hgb 12.9, Hct 36.5 L, MCV 88.0, MCH 31.1 H , MCHC 35.3, RDW Coeff of [place] 12.3, Plt Count 281, Immature Gran % (Auto) 0.8, Neut % (Auto) 52.7, Lymph % (Auto) 33.7, [place] % (Auto) 8.4, Eos % (Auto) 3.9, Baso % (Auto) 0.5, Neut # (Auto) 4.5, Lymph # (Auto) 2.9, [place] # (Auto) 0.7, Eos # (Auto) 0.3, Baso # (Auto) 0.0, Immature Gran # (Auto) 0.1 ASSESSMENT: Please see below. 1. COPD with acute bronchitis, seems to be resolving. 2. Dehydration resolved. Skin turgor a lot better. PLAN: 1. Discharge home today. 2. Will see the patient back in the office next week. 3. Keflex 500 mg t.i.d. for 5 days. 4. Continue Losartan/HCTZ. 5. Use inhalers at home. 6. Smoking cessation advised. 7. Trilogy two puffs daily - will give sample. Plan and coordination of the patient's care discussed in the presence of Shopper Insights Manager and nurse. CONDITION: Stable SCRIBED BY: KATHY HAILE Hot Bread Baker scribed while in presence of service performed by Dr. Diaz/Lelo Norman APRN on 03/02/21 ([id number])
[2021-03-02] MEDS: XANAX PO SCH (09:45)
[2021-03-02] MEDS: HYZAAR 50-12.5 MG TAB PO SCH (09:45)
[2021-03-02] MEDS: KEFLEX PO SCH (09:46)
[2021-03-02] MEDS: GLUCOPHAGE PO SCH (09:46)
[2021-03-02] MEDS: CARDIZEM PO SCH (09:46)
[2021-03-02] MEDS: NORCO 10-325 PO PRN (09:54)
--- NOTE | 2021-03-02 10:00 | PN ---
DATE OF SERVICE: 02/28/2021 SUBJECTIVE: 75 year old white female hospitalized with shortness of air, cough. The patient is heavy smoker. The patient has been on antibiotics and steroids and condition has improved. She was given IV fluids because of dehydration. REVIEW OF SYSTEMS: CONSTITUTIONAL: No night sweats. No fatigue, malaise, lethargy. No fever or chills. HEENT: Eyes: No visual changes. No eye pain. No eye discharge. ENT: No runny nose. No epistaxis. No sinus pain. No sore throat. No odynophagia. No congestion. RESPIRATORY: No cough, no congestion. No hemoptysis. No shortness of breath. CARDIOVASCULAR: No angina symptoms. No CHF symptoms. No atypical chest pain for CAD. No palpitations. No PND. No orthopnea. GASTROINTESTINAL: No abdominal pain. No nausea or vomiting. No diarrhea or constipation. No hematemesis. No hematochezia. Appetite has improved. GENITOURINARY: No urgency. No frequency. No dysuria. No hematuria. No obstructive symptoms. No discharge. No pain. No significant abnormal bleeding. MUSCULOSKELETAL: No musculoskeletal pain; no joint swelling. NEUROLOGICAL: No headache. No neck pain. No syncope. No seizures. No dizziness. Mental status seems to have improved. PSYCHIATRIC: Not anxious. No depression. No suicidal thoughts. No homicidal thoughts. SKIN: No rash. No lesions. No wounds. ENDOCRINE: No unexplained weight loss. No weight gain. HEMATOLOGIC/LYMPHATIC: No anemia. No purpura. No petechiae. No prolonged or excessive bleeding. No palpable lymph nodes. PHYSICAL EXAMINATION: VITAL SIGNS: Temperature 97.5, pulse 73, respiratory rate 20, blood pressure 135/80 and pulse ox 96%. HEENT: Head normocephalic, atraumatic. Eyes: Extraocular muscles are intact. Pupils are equal, round and reactive to light and accommodation. Ears: No lesions. Nose appeared normal. Throat: No exudate or erythema. NECK: Supple. No JVD, no carotid bruit. No lymphadenopathy or thyromegaly. LUNGS: Decreased breath sounds but clear to auscultation. Percussion note normal. Chest symmetrical. HEART: S1, S2, no S3. No murmurs. No cyanosis or clubbing. No ascites. Pulses: Dorsalis pedis and posterior tibial pulses +1 to +2 bilaterally. ABDOMEN: Soft. Nontender. Bowel sounds active. No CVA tenderness. No mass felt. EXTREMITIES: No edema. Full range of motion of all extremities, equal. NEUROLOGIC: No focal deficit. Cranial nerves II through XII are grossly intact. No headache. No double vision. SKIN: Not dry. Intact. Turgor - normal. LYMPHATIC: No palpable lymph nodes/no lymphedema. MUSCULOSKELETAL: Normal joints with no swelling. Muscle tone is normal. LABS: Hgb 13, hct 37, WBC 9,400 normal differential, creatinine 0.6, BUN 27, potassium 4.3 ASSESSMENT: 1. Acute bronchitis with severe chronic lung disease with heavy smoking 2. Morbid obesity 3. Hypertension PLAN: 1. Continue to encourage the patient to eat 2. Continue Antibiotics 3. The patient is on Losartan with Hydrochlorothiazide with better blood pressure reading today CONDITION: Stable. TIME SPENT: More than 30 minutes. Plan and coordination of the patient's care discussed in the presence of nurse. SUSAN
--- NOTE | 2021-03-02 10:28 | CM.DICTOOL ---
ADMISSION: 02/25/21 11:50 DISCHARGE: MARCH 02, 2021 DATE OF SERVICE: 03/02/21 FINAL DIAGNOSIS COPD WITH ACUTE BRONCHITIS ACUTE GASTRITIS, RESOLVED HYPONATREMIA, IMPROVED DEHYDRATION, IMPROVED HYPERTENSION HYPERGLYCEMIA DYSLIPIDEMIA HYPOTHYROIDISM COPD, OXYGEN USE AT HOME GERD ANXIETY (SEES DR. DOSS) DEPRESSION (SEEChuck DOSS) CHRONIC LOW BACK PAIN ARTHRITIS, LEFT HIP AND LUMBAR SPINE CHRONIC BACK PAIN, SEES DR. HATFIELD SENSORINERUAL HEARING LOSS, BOTH EARS OBESITY, BMI 40.5 CONTINUED TOBACCO USE NON-COMPLIANCE WITH LIFESTYLE, MEDICATIONS, DIET, FOLLOW-UP PARTIAL HYSTERECTOMY CHOLECYSTECTOMY ECHOCARDIOGRAM: COMPLETED 03/02/2021 LAST VITALS Temp Pulse Resp BP Pulse Ox 97.9 F 74 19 126/74 99 03/02/21 05:37 03/02/21 05:37 03/02/21 08:00 03/02/21 05:37 03/02/21 05:37 TAKE THESE MEDICATIONS AT HOME Hydrocodone Bitart/Acetaminophen (Hydrocodone Bit/Acetaminophen 10/325 Mg T ablet) 1 tab PO Q6H PRN PRN Reason: MODERATE PAIN Last Admin: 03/01/21 22:21 Dose: 1 tab Documented by: Albuterol Sulfate (Albuterol Sulfate (Ventolin Hfa) 18 Gm 1 Puff With Spacer) 2 puff IH QID PRN Last Admin: 03/02/21 05:06 Dose: 2 puff Documented by: Alprazolam (Alprazolam 0.5 Mg Tablet) 0.5 mg PO TID NAMAN Last Admin: 03/01/21 20:30 Dose: 0.5 mg Documented by: Aspirin (Aspirin 81 Mg Tablet.) 81 mg PO BEDTIME NAMAN Last Admin: 03/01/21 20:30 Dose: 81 mg Documented by: Cephalexin (Cephalexin 500 Mg Capsule) 500 mg PO TID NAMAN (NEW RX FOR 5 DAYS) Stop: Last Admin: 03/01/21 20:30 Dose: 500 mg Documented by: Diltiazem HCl (Diltiazem Hcl 60 Mg Tablet) 60 mg PO BID NAMAN Last Admin: 03/01/21 20:30 Dose: 60 mg Documented by: HCTZ/Losartan Potassium (Losartan/Hydrochlorothiazide 50/12.5 Mg Tab) 1 tab PO DAILY NAMAN (NEW RX) Last Admin: 03/01/21 08:54 Dose: 1 tab Documented by: Levothyroxine Sodium (Levothyroxine Sodium 50 Mcg Tablet) 50 mcg PO QDAC [facility] Last Admin: 03/02/21 05:58 Dose: 50 mcg Documented by: Metformin HCl (Metformin Hcl 500 Mg Tablet) 500 mg PO BIDWM [facility] Last Admin: 03/01/21 16:04 Dose: 500 mg Documented by: Pantoprazole Sodium (Pantoprazole Sodium 40 Mg Tablet.) 40 mg PO DAILY AC [facility] Last Admin: 03/02/21 05:58 Dose: 40 mg Documented by: Pravastatin Sodium (Pravastatin Sodium 40 Mg Tablet) 80 mg PO BEDTIME [facility] Last Admin: 03/01/21 20:29 Dose: 80 mg Documented by: TRILOGY IH 2 PUFFS DAILY SCHEDULED (SAMPLE AND RX) ZANAFLEX 4 MG PO Q 12 HOURS PRN ALLERGIES simvastatin [From Zocor] Allergy (Mild, Verified 02/25/21 09:30) Rash atorvastatin [From Lipitor] Adverse Reaction (Mild, Verified 02/25/21 09:30) muscle pain rosuvastatin [From Crestor] Adverse Reaction (Mild, Verified 02/25/21 09:30) muscle pain DISCONTINUED MEDICATIONS NONE NEW PRESCRIPTIONS: KEFELX 500 MG TID FOR 5 DAYS HYZAAR 50-12.5 MG DAILY TRELOGY ELLIPTA [id number] 1 PUFF DAILY SMOKING: ADVISED TO STOP SMOKING DISEASE SPECIFIC EDUCATION: NEW MEDICATIONS NUTRTITION/HYDRATION USE OF INHALER AND OXYGEN AT HOME APPOINTMENT LAB REVIEW: 03/02/21 04:53 03/02/21 04:53 03/02/21 04:53: Sodium 134.2 L, Potassium 4.17, Chloride 99.8, Carbon Dioxide 28.1, Anion Gap 10.47, BUN 32.7 H, Creatinine 0.68, Estimated GFR (MDRD) 85.00, BUN/Creatinine Ratio 48.08, Glucose 172.7 H, Calcium 9.03, Total Bilirubin 0.75, AST 20.3, ALT 20.0, Alkaline Phosphatase 91.6, Total Protein 6.47, Albumin 3.99, Globulin 2.48, Albumin/Globulin Ratio 1.60 03/02/21 04:53: WBC 8.55, RBC 4.15 L, Hgb 12.9, Hct 36.5 L, MCV 88.0, MCH 31.1 H , MCHC 35.3, RDW Coeff of Sharon 12.3, Plt Count 281, Immature Gran % (Auto) 0.8, Neut % (Auto) 52.7, Lymph % (Auto) 33.7, Gregory % (Auto) 8.4, Eos % (Auto) 3.9, Baso % (Auto) 0.5, Neut # (Auto) 4.5, Lymph # (Auto) 2.9, Gregory # (Auto) 0.7, Eos # (Auto) 0.3, Baso # (Auto) 0.0, Immature Gran # (Auto) 0.1 PLAN: DISCHARGE HOME TODAY DIET: HEART HEALTHY, LIMIT CONCENTRATED SWEETS ACTIVITY: RESUME ACTIVITY TOLERATED CONTINUE TO USE OXYGEN AT 2 LITERS AT NIGHT AND NEEDED DURING THE DAY AN APPOINTMENT IS SCHEDULED WITH DR. DIAZ/GIDEON TSANG APRN/ADWOA PANTOJA APRN ON February AT 10 AM CODE STATUS: DO NOT RESUSCITATE PER PATIENT MS. LUNA IS ALERT AND ORIENTED X 4. SHE IS VERY HARD OF HEARING. SHE IS HOPING TO SEE A SPECIALIST IN [place] IN FOR COCHLEAR IMPLANTS. MS. LUNA IS INDEPENDENT WITH ACTIVITIES OF DAILY LIVING. SHE IN INDEPENDENT WITH BED MOBILITY, TRANSFERS AND WITH AMBULATION TO THE BATHROOM. MS LUNA IS CONTINENT OF BOWEL AND BLADDER. SHE HAS UTILIZED A ROLLATOR WITH AMBULATION WHILE IN THE HOSPITAL. GAIT IS STEADY. MS. LUNA HAS A ROLLATOR AND A ROLLING WALKER AT HOME FOR HER USE. SHE REPORTS SHE KEEPS THE ROLLING WALKER IN HER CAR. MEAL INTAKES HAVE BEEN GOOD AT 75-100%. SHE HAS NOT EXPERIENCED ANY NAUSEA OR DIARRHEA SINCE HER ADMISSION. HYDRATION STATUS IS GOOD. SKIN IS INTACT. MD GIDEON GAY APRN
--- NOTE | 2021-03-02 14:56 | PN ---
DATE OF SERVICE: 03/01/21 SUBJECTIVE: 75-year-old white female hospitalized with bronchitis, COPD, shortness of air. The patient's condition has steadily improved. Her dehydration seems to have resolved. REVIEW OF SYSTEMS: CONSTITUTIONAL: No night sweats. No fatigue, malaise, lethargy. No fever or chills. HEENT: Eyes: No visual changes. No eye pain. No eye discharge. ENT: No runny nose. No epistaxis. No sinus pain. No sore throat. No odynophagia. No congestion. RESPIRATORY: No cough, no congestion. No hemoptysis. No shortness of breath. CARDIOVASCULAR: No angina symptoms. No CHF symptoms. No atypical chest pain for CAD. No palpitations. No PND. No orthopnea. GASTROINTESTINAL: Appetite has improved. No abdominal pain. No nausea or vomiting. No diarrhea or constipation. No hematemesis. No hematochezia. GENITOURINARY: No urgency. No frequency. No dysuria. No hematuria. No obstructive symptoms. No discharge. No pain. No significant abnormal bleeding. MUSCULOSKELETAL: No musculoskeletal pain; no joint swelling. NEUROLOGICAL: No headache. No neck pain. No syncope. No seizures. No dizziness. PSYCHIATRIC: Not anxious. No depression. No suicidal thoughts. No homicidal thoughts. SKIN: No rash. No lesions. No wounds. ENDOCRINE: No unexplained weight loss. No weight gain. HEMATOLOGIC/LYMPHATIC: No anemia. No purpura. No petechiae. No prolonged or excessive bleeding. No palpable lymph nodes. PHYSICAL EXAMINATION: VITAL SIGNS: Temperature 97.9, pulse 83, respiratory rate 18, blood pressure 144/82, pulse ox 95% on room air. HEENT: Head normocephalic, atraumatic. Eyes: Extraocular muscles are intact. Pupils are equal, round and reactive to light and accommodation. Ears: No lesions. Nose appeared normal. Throat: No exudate or erythema. NECK: Supple. No JVD, no carotid bruit. No lymphadenopathy or thyromegaly. LUNGS: Decreased breath sounds but clear to auscultation. Percussion note normal. Chest symmetrical. HEART: S1, S2, no S3. No murmurs. No cyanosis or clubbing. No ascites. Pulses: Dorsalis pedis and posterior tibial pulses +1 to +2 bilaterally. ABDOMEN: Soft. Nontender. Bowel sounds active. No CVA tenderness. No mass felt. EXTREMITIES: No edema. Full range of motion of all extremities, equal. NEUROLOGIC: No focal deficit. Cranial nerves II through XII are grossly intact. No headache. No double vision. SKIN: Not dry. Intact. Turgor - normal. LYMPHATIC: No palpable lymph nodes/no lymphedema. MUSCULOSKELETAL: Normal joints with no swelling. Muscle tone is normal. LABS: Hemoglobin 13.4, hematocrit 38, WBC 9,000, normal differential. Creatinine 0.6, BUN 30, potassium 4.2. ASSESSMENT: 1. Bronchitis with COPD, history of smoking. Seems to be under control. Smoking counseling done which is of no use. The patient says she is never going to be able to give up smoking. 2. Hydration status improved. Skin turgor better. 3. Blood sugar more or less controlled. 4. SARS negative. 5. The patient is morbidly obese. Advised to lose weight. Diet counseling done. TIME SPENT: More than 30 minutes. Plan and coordination of the patient's care discussed in the presence of nurse. SUSAN
--- NOTE | 2021-03-03 10:47 | DS ---
DATE OF SERVICE: 03/02/21 CODE STATUS: DO NOT RESUSCITATE PER PATIENT FINAL DIAGNOSIS: 1. COPD WITH ACUTE BRONCHITIS 2. ACUTE GASTRITIS, RESOLVED 3. HYPONATREMIA, IMPROVED 4. DEHYDRATION, IMPROVED 5. HYPERTENSION 6. HYPERGLYCEMIA 7. DYSLIPIDEMIA 8. HYPOTHYROIDISM 9. COPD, OXYGEN USE AT HOME 10. GERD 11. ANXIETY (SEES DR. DOSS) 12. DEPRESSION (SEES DR. DOSS) 13. CHRONIC LOW BACK PAIN 14. ARTHRITIS, LEFT HIP AND LUMBAR SPINE 15. CHRONIC BACK PAIN, SEES DR. HATFIELD 16. SENSORINEURAL HEARING LOSS, BOTH EARS 17. OBESITY, BMI 40.5 18. CONTINUED TOBACCO USE 19. NON-COMPLIANCE WITH LIFESTYLE, MEDICATIONS, DIET, FOLLOW-UP 20. PARTIAL HYSTERECTOMY 21. CHOLECYSTECTOMY 22. ECHOCARDIOGRAM: COMPLETED 03/02/2021 LAST VITALS Temp Pulse Resp BP Pulse Ox 97.9 F 74 19 126/74 99 03/02/21 05:37 03/02/21 05:37 03/02/21 08:00 03/02/21 05:37 03/02/21 05:37 DISCHARGE INSTRUCTIONS: 1. DISCHARGE HOME TODAY 2. CONTINUE TO USE OXYGEN AT 2 LITERS AT NIGHT AND NEEDED DURING THE DAY 3. AN APPOINTMENT IS SCHEDULED WITH DR. LACY/GIDEON TSANG APRN/ADWOA PANTOJA APRN ON February AT 10 AM. MEDICATIONS AT DISCHARGE: Hydrocodone Bitart/Acetaminophen (Hydrocodone Bit/Acetaminophen 10/325 Mg Tablet) 1 tab PO Q6H PRN PRN Reason: MODERATE PAIN Last Admin: 03/01/21 22:21 Dose: 1 tab Documented by: Albuterol Sulfate (Albuterol Sulfate (Ventolin Hfa) 18 Gm 1 Puff With Spacer) 2 puff IH QID PRN Last Admin: 03/02/21 05:06 Dose: 2 puff Documented by: Alprazolam (Alprazolam 0.5 Mg Tablet) 0.5 mg PO TID NAMAN Last Admin: 03/01/21 20:30 Dose: 0.5 mg Documented by: Aspirin (Aspirin 81 Mg Tablet.) 81 mg PO BEDTIME NAMAN Last Admin: 03/01/21 20:30 Dose: 81 mg Documented by: Cephalexin (Cephalexin 500 Mg Capsule) 500 mg PO TID NAMAN (NEW RX FOR 5 DAYS) Stop: Last Admin: 03/01/21 20:30 Dose: 500 mg Documented by: Diltiazem HCl (Diltiazem Hcl 60 Mg Tablet) 60 mg PO BID [facility] Last Admin: 03/01/21 20:30 Dose: 60 mg Documented by: HCTZ/Losartan Potassium (Losartan/Hydrochlorothiazide 50/12.5 Mg Tab) 1 tab PO DAILY NAMAN (NEW RX) Last Admin: 03/01/21 08:54 Dose: 1 tab Documented by: Levothyroxine Sodium (Levothyroxine Sodium 50 Mcg Tablet) 50 mcg PO QDAC [facility] Last Admin: 03/02/21 05:58 Dose: 50 mcg Documented by: Metformin HCl (Metformin Hcl 500 Mg Tablet) 500 mg PO BIDWM [facility] Last Admin: 03/01/21 16:04 Dose: 500 mg Documented by: Pantoprazole Sodium (Pantoprazole Sodium 40 Mg Tablet.) 40 mg PO DAILY AC [facility] Last Admin: 03/02/21 05:58 Dose: 40 mg Documented by: Pravastatin Sodium (Pravastatin Sodium 40 Mg Tablet) 80 mg PO BEDTIME [facility] Last Admin: 03/01/21 20:29 Dose: 80 mg Documented by: TRILOGY IH 2 PUFFS DAILY SCHEDULED (SAMPLE AND RX) ZANAFLEX 4 MG PO Q 12 HOURS PRN NEW PRESCRIPTIONS: KEFELX 500 MG TID FOR 5 DAYS HYZAAR 50-12.5 MG DAILY TRELOGY ELLIPTA [phone] 1 PUFF DAILY DISCONTINUED MEDICATIONS: NONE DIET INSTRUCTIONS: HEART HEALTHY, LIMIT CONCENTRATED SWEETS ACTIVITY: RESUME ACTIVITY TOLERATED SMOKING: ADVISED TO STOP SMOKING DISEASE SPECIFIC EDUCATION: NEW MEDICATIONS NUTRTITION/HYDRATION USE OF INHALER AND OXYGEN AT HOME APPOINTMENT HOSPITAL COURSE: 75-year-old white female who presented to the emergency room with worsening shortness of breath, cough, had also had vomiting and diarrhea. Labs - kidney function was elevated showing mild dehydration. She was admitted, placed on Rocephin 1 gm IV daily, started on Normal Saline IV at 75 cc/hr. No pneumonia was seen. Changes associated with COPD. CT scan of the abdomen and pelvis showed no acute process. Zofran 4 mg q.6hr was started. Over the course of the next several days, her cough, wheezing and shortness of breath improved. She had been on Solu-Medrol IV 125 mg q.8hr. She felt that it was making her more anxious and this was discontinued after about three days. She was placed on Pulmicort and Albuterol nebs. Her vomiting and diarrhea subsided after the first 48 hours. She was hyponatremic on admission. This has improved with sodium of 134 today. BUN and creatinine have improved at 32 and 0.68. She will be discharged in stable condition. She has oxygen at home to continue with 2L at night and p.r.n during the day. She also has nebulizer machine at home to continue with Albuterol neb t.i.d. She did have some elevated blood pressure. Dr. Lacy started her on 50/12.5 Losartan and Hydrochlorothiazide. Today blood pressure systolic is in the 130s. Will send her home on Keflex 500 t.i.d. for the next 7 days along with a Trilogy inhaler two puffs daily NAMAN. We will follow up with her in the office next week. Smoking cessation information has been provided. We have advised her to quit smoking. She is to continue with a bland diet. TIME SPENT: More than 60 minutes. SUSAN
--- NOTE | 2021-03-03 11:44 | PN ---
DATE OF SERVICE: 03/02/21 SUBJECTIVE: The patient was seen and examined with the nurse practitioner. The patient's condition for dehydration status has resolved. Skin turgor is better. Bronchitis has resolved. Counseling for smoking done. Counseling for diet for morbid obesity done. Condition stable. TIME SPENT: More than 30 minutes. Plan and coordination of the patient's care discussed in the presence of nurse. SUSAN
--- NOTE | 2021-03-03 11:46 | PN ---
BILLING 02/25/21 ADMISSION DAY LEVEL 5 02/26/21 INTERMEDIATE 02/27/21 INTERMEDIATE 02/28/21 INTERMEDIATE 03/01/21 INTERMEDIATE 03/02/21 FINAL DAY - DISCHARGE SUSAN
--- NOTE | 2021-03-04 12:07 | ECHO2D ---
Date of Exam: 03/02/2021 Ordering Physician: DR. SHIRA DIAZ Room #: [id number] Reason for Echo: HYPERTENSION, SHORT OF AIR M-Mode Normal Adult Results LV Dimensions Normal Adult Results AoV Opening excursions >1.6 >1.6 LVEDD-base- 3.5-5.8 4.7 Ao root dimensions 2.0-3.7 3.7 LVESD-base- 3.1-4.6 L. Atrium dimensions 1.9-3.8 3.6 Post. Wall thickness 0.8-1.1 1.1 IV septum (thickness) 0.7-1.2 1.3 Post. Wall excursion 0.72-1.3 NORMAL Septal motion NORMAL Systolic motion R. Ventricular cavity 1.5-2.0 NORMAL LVEF 60% 58% Paradoxical septal wall motion NORMAL 2-D : 2-D M Mode Echocardiogram was performed using apical four chamber and left parasternal long and short axis views. Mitral, tricuspid and aortic valves appear to be normal. Contractility of the left ventricle seems to be normal, so is the cavity size. Left atrial cavity size and aortic root appear to be normal. There is no pericardial effusion. There is no thrombus noted in the left ventricle or left atrial cavity. M-MODE: MV: NORMAL AV: NORMAL TV: NORMAL PV: CHAMBER SIZE: NORMAL WALL MOTION: NORMAL PERICARDIUM: NORMAL INTERPRETATION: 1. LEFT VENTRICULAR HYPERTROPHY 2. NORMAL VALVES 3. NORMAL LEFT VENTRICLE SIZE AND LEFT VENTRICLE CONTRACTILITY MTDD
== END 2021-03-02 13:07 | disposition home or self-care (01) | DRG 392 ==
LOC: ED 09:22 → MEDSURG A 11:50
PROVIDERS: ADMIT Emergency Medicine Emergency Medical Services; ATTEND Internal Medicine
DX: F41.3 Other mixed anxiety disorders; Z68.41 Body mass index [BMI] 40.0-44.9, adult; M16.12 Unilateral primary osteoarthritis, left hip; E78.1 Pure hyperglyceridemia; E86.0 Dehydration; E78.5 Hyperlipidemia, unspecified; R06.02 Shortness of breath; E66.01 Morbid (severe) obesity due to excess calories; K29.00 Acute gastritis without bleeding; Z99.81 Dependence on supplemental oxygen; R53.1 Weakness; E87.1 Hypo-osmolality and hyponatremia; E03.9 Hypothyroidism, unspecified; R19.7 Diarrhea, unspecified; R05 Cough; Z91.19 Patient's noncompliance with other medical treatment and regimen; Z20.822 Contact with and (suspected) exposure to COVID-19; R11.2 Nausea with vomiting, unspecified; I10 Essential (primary) hypertension; M54.5 Low back pain

== ENCOUNTER 2021-04-28 14:43 | Inpatient (IN) ==
[2021-04-28] MEDS ORDERED: VENTOLIN HFA (PER PUFF-WITH SPACER) IH STA (16:55)
--- NOTE | 2021-04-28 16:58 | ED.PDOC ---
General ED Provider: Dr. JENELLE FISHMAN Chief Complaint: Shortness of Air Stated Complaint: Having Shortness of breath/Urinary burning Time Seen by Provider: 04/28/21 16:55 Mode of Arrival: Wheelchair Information Source: Patient Exam Limitations: No limitations Primary Care Provider: SHIRA DIAZ Nursing and Triage Documentation Reviewed and Agree: Yes Does patient meet sepsis criteria?: No System Inflammatory Response Syndrome: Not Applicable Sepsis Protocol: For patient's 13 years and over: Temp is 96.8 and below OR 101 and greater Pulse >90 BPM Resp >20/minute Acutely Altered Mental Status Are patient's symptoms suggestive of a new infection, such as: -Pneumonia -Skin, Soft Tissue -Endocarditis -UTI -Bone, Joint Infection -Implantable Device -Acute Abdominal Infection -Wound Infection -Meningitis -Blood Stream Catheter Infection -Unknown Respiratory Complaint Exam Shortness of Air Complaint/Exam Onset/Duration: chronic Symptoms Are: Still present Timing: Intermittent Initial Severity: Mild Current Severity: None Character: Reports Dyspnea at rest and Dyspnea on exertion Aggravating: Reports Recumbent position Alleviating: Reports Bronchodilators and Upright position Associated Signs and Symptoms: Denies Cough, Wheezing, Chest pain with cough, Chest pain, Fever, Chills, Diaphoresis, Nasal congestion, Dizziness, Calf pain, Calf swelling, Edema, Rapid breathing, Labored breathing or Decreased intake Related History: Reports Similar episode History of Healthcare-Acquired Pneumonia: No Pulmonary Embolism Risk Factors: Reports None Cardiac Risk Factors: Reports None Pseudomonas Risk Factors: Reports None Tuberculosis Risk Factors: Reports None Home Oxygen Use: Yes Recent Stress Test: No Recent Echo/LV Function: No Respiratory Distress: None Stridor Present: No Tracheal Deviation: No Subcutaneous Emphysema: No Retractions: Not Present Diminished Breath Sounds: No Prolonged Expiratory Phase: No Unable to Speak Full Sentences: No Fatigue: Yes Leg Swelling: Yes Katy's Sign Present: No Grunting Respirations: No Kussmaul Respirations: No Differential Diagnoses: Other (COPD) Review of Systems Review Of Systems Constitutional: Reports Malaise and Weakness Eyes: Reports No symptoms Ears, Nose, Mouth, Throat: Reports No symptoms Respiratory: Reports Cough, Short of air and Wheezing Cardiac: Reports No symptoms GI: Reports No symptoms : Reports Burning and Dysuria Musculoskeletal: Reports No symptoms Skin: Reports No symptoms Neurological: Reports Anxiety Endocrine: Reports No symptoms All Other Systems: Reviewed and Negative PFSH Medical History Arthritis Chronic back pain COPD (chronic obstructive pulmonary disease) Diabetes Elevated cholesterol Hypertension Sensorineural hearing loss (SNHL) of both ears Family History Other Family history unknown Social History Smoking and tobacco status: Current every day smoker History of recent travel: No Surgical History Status post cholecystectomy Status post hysterectomy Female Reproductive History Menstrual Hx Hysterectomy: Yes Hx Tubal Ligation: No Physical Exam Physical Exam Appearance: Reports Well-appearing, No pain distress and Obese Ill-appearing: Mild Pain Distress: Not Applicable Eyes: Reports GUIDO, EOMI and Conjunctiva clear ENT: Reports Nose normal and Oropharynx normal Neck: Nonsupple Respiratory: Reports Airway patent, Breath sounds clear and Breath sounds diminished Cardiovascular: Reports RRR, Pulses normal, No rub, No murmur, Irregular rhythm and Tachycardia GI/: Reports Soft, Nontender, No masses and Bowel sounds hypoactive Musculoskeletal: Reports Normal strength, ROM intact, No edema, No calf tenderness and Edema (lt ankle); Denies Calf tenderness Skin: Reports Warm, Dry and Normal color Neurological: Reports Sensation intact, Motor intact, Reflexes intact, Cranial nerves intact, Alert and Alert to pain Psychiatric: Reports Affect appropriate and Mood appropriate Interpretation Medical Fee Clerk Time of Medical Fee Clerk Interpretation: 17:12 Rate: Normal Rhythm: Sinus Ectopy: None Physician Notification Case Discussed Physician Notified: Dr Diaz-admit patient of IV antibiotics Time of Notification: 17:15 Critical Care Note Critical Care Note Total Critical Care Time (mins): 0 Course Course Hematology/Chemistry: 05/01/21 05:06 05/01/21 05:06 Orders, Labs, Meds: Lab Review 04/28/21 04/28/21 04/28/21 16:50 17:08 17:08 WBC 10.46 H RBC 4.10 L Hgb 12.8 Hct 37.2 MCV 90.7 MCH 31.2 H MCHC 34.4 RDW Coeff of [place] 12.9 Plt Count 264 Immature Gran % (Auto) 1.0 Neut % (Auto) 59.4 Lymph % (Auto) 29.1 [place] % (Auto) 6.3 Eos % (Auto) 3.7 Baso % (Auto) 0.5 Neut # (Auto) 6.2 Lymph # (Auto) 3.0 [place] # (Auto) 0.7 Eos # (Auto) 0.4 Baso # (Auto) 0.1 Immature Gran # (Auto) 0.1 Sodium 131.8 L Potassium 4.48 Chloride 95.2 L Carbon Dioxide 28.9 Anion Gap 12.18 BUN 14.4 Creatinine 0.85 Estimated GFR (MDRD) 65.00 BUN/Creatinine Ratio 16.94 Glucose 107.6 H Uric Acid 4.48 Calcium 9.29 Total Bilirubin 0.57 AST 27.6 ALT 17.7 Alkaline Phosphatase 114.5 Total Protein 7.25 Albumin 4.45 Globulin 2.80 Albumin/Globulin Ratio 1.58 Urine Color Yellow Urine Clarity Cloudy Urine pH 5.5 Ur Specific Squire 1.020 Urine Protein 1+ H Urine Glucose (UA) Negative Urine Ketones Negative Urine Blood 2+ H Urine Nitrite Positive H Urine Bilirubin Negative Urine Urobilinogen 0.2 Ur Leukocyte Esterase 2+ H Urine Microscopic RBC 20-30 Urine Microscopic WBC 30-50 Ur Squamous Epith Cells 5-10 Urine Bacteria 4+ Adenovirus (PCR) B. pertussis DNA (PCR) B.parapertussis DNA PCR C. pneumoniae DNA (PCR) Coronavirus OC43 (PCR) Coronavirus HKU1 (PCR) Coronavirus 229E (PCR) Coronavirus NL63 (PCR) Human Metapneumovir PCR Influenza Type A (PCR) Influenza B (RT-PCR) M. pneumoniae (PCR) Parainfluenza 1 (PCR) Parainfluenza 2 (PCR) Parainfluenza 3 (PCR) Parainfluenza 4 (PCR) RSV (PCR) Entero/Rhino (PCR) SARS-CoV-2 (PCR) 04/28/21 17:55 WBC RBC Hgb Hct MCV MCH MCHC RDW Coeff of [place] Plt Count Immature Gran % (Auto) Neut % (Auto) Lymph % (Auto) [place] % (Auto) Eos % (Auto) Baso % (Auto) Neut # (Auto) Lymph # (Auto) [place] # (Auto) Eos # (Auto) Baso # (Auto) Immature Gran # (Auto) Sodium Potassium Chloride Carbon Dioxide Anion Gap BUN Creatinine Estimated GFR (MDRD) BUN/Creatinine Ratio Glucose Uric Acid Calcium Total Bilirubin AST ALT Alkaline Phosphatase Total Protein Albumin Globulin Albumin/Globulin Ratio Urine Color Urine Clarity Urine pH Ur Specific Squire Urine Protein Urine Glucose (UA) Urine Ketones Urine Blood Urine Nitrite Urine Bilirubin Urine Urobilinogen Ur Leukocyte Esterase Urine Microscopic RBC Urine Microscopic WBC Ur Squamous Epith Cells Urine Bacteria Adenovirus (PCR) Not detected B. pertussis DNA (PCR) Not detected B.parapertussis DNA PCR Not detected C. pneumoniae DNA (PCR) Not detected Coronavirus OC43 (PCR) Not detected Coronavirus HKU1 (PCR) Not detected Coronavirus 229E (PCR) Not detected Coronavirus NL63 (PCR) Not detected Human Metapneumovir PCR Not detected Influenza Type A (PCR) Not detected Influenza B (RT-PCR) Not detected M. pneumoniae (PCR) Not detected Parainfluenza 1 (PCR) Not detected Parainfluenza 2 (PCR) Not detected Parainfluenza 3 (PCR) Not detected Parainfluenza 4 (PCR) Not detected RSV (PCR) Not detected Entero/Rhino (PCR) Not detected SARS-CoV-2 (PCR) Not detected Orders Category Date Time Status ADMIT PATIENT INPATIENT .TO MEDSURG (MONITORED BED) ADMISSION 04/28/21 17:49 Active EKG-(ED ONLY) Stat CARDIO 04/28/21 16:54 Completed METERED DOSE INHALATION Routine CARDIO 04/28/21 16:55 Completed METERED DOSE INHALATION Routine CARDIO 04/28/21 17:48 Completed METERED DOSE INHALATION Routine CARDIO 04/28/21 19:36 Active OXYGEN Routine CARDIO 04/28/21 16:54 Active INTAKE & OUTPUT Q8HR CARE 04/28/21 17:46 Active TELEMETRY MONITORING TELE CARE 04/28/21 17:49 Active VITAL SIGNS Q8HR CARE 04/28/21 17:46 Active IV [ED IV/MEDIPORT/POWERPORT] .ONCE EMERGENCY 04/28/21 17:45 Active CBC W/ AUTO DIFF Stat LAB 04/28/21 17:08 Completed CMP [COMPREHENSIVE METABOLIC PANEL] Stat LAB 04/28/21 17:08 Completed RESPIRATORY PANEL 2.1 (PCR) Stat LAB 04/28/21 17:55 Completed URIC ACID Stat LAB 04/28/21 17:08 Completed URINALYSIS C & S IF INDICATED Stat LAB 04/28/21 16:50 Completed URINE CULTURE Stat LAB 04/28/21 16:50 Completed 0.9 % Sodium Chloride [Saline Flush] MEDS 04/28/21 17:45 Active 1 syr IVF PRN PRN Albuterol Inhaler(with Spacer) [Ventolin Hfa (Per Puff- MEDS 04/28/21 16:55 Discontinued with Spacer)] 2 puff IH ONCE STA Albuterol Inhaler(with Spacer) [Ventolin Hfa (Per Puff- MEDS 04/28/21 21:00 Discontinued with Spacer)] 2 puff IH QID Albuterol Inhaler(with Spacer) [Ventolin Hfa (Per Puff- MEDS 04/28/21 19:35 Active with Spacer)] 2 puff IH QID PRN Albuterol Inhaler(with Spacer) [Ventolin Hfa (Per Puff- MEDS 04/28/21 20:00 Active with Spacer)] 2 puff IH RTQID Alprazolam [Xanax] MEDS 04/28/21 19:35 Active 0.5 mg PO QID PRN Aspirin [Aspirin EC] MEDS 04/28/21 21:00 Active 81 mg PO BEDTIME Ceftriaxone/D5w 1 gm Premix [Rocephin 1 gm/50 ml D5w] MEDS 04/28/21 18:00 Active 1 gm in 50 ml IV DAILY Diltiazem HCl [Cardizem] MEDS 04/28/21 21:00 Active 60 mg PO BID Hydrocodone Bit/Acetaminophen [[place] 10-325] MEDS 04/28/21 19:35 Active 1 tab PO Q6H PRN Levothyroxine Sodium [Synthroid] MEDS 04/29/21 07:30 Active 50 mcg PO QDAC Metformin HCl [Glucophage] MEDS 04/28/21 21:00 Discontinued 500 mg PO BID Mirtazapine [Remeron] MEDS 04/28/21 21:00 Active 15 mg PO BEDTIME Ondansetron HCl/Pf [Zofran 4 mg/2 ml] MEDS 04/28/21 17:45 Active 4 mg IVP Q6H PRN Pantoprazole Sodium [Protonix] MEDS 04/29/21 06:30 Active 40 mg PO QDAC Phenazopyridine HCl [Pyridium] MEDS 04/28/21 17:55 Discontinued 100 mg PO ONCE STA Sodium Chloride 0.9% [Sodium Chloride] 1,000 ml MEDS 04/28/21 17:45 Discontinued IV BOLUS Tizanidine HCl [Zanaflex] MEDS 04/28/21 19:35 Active 4 mg PO Q12HR PRN CHEST, 1V AP ONLY Stat RADS 04/28/21 16:50 Completed Medications Generic Name Dose Route Start Last Admin Trade Name Freq PRN Reason Stop Dose Admin Hydrocodone Bitart/Acetaminophen 1 tab 04/28/21 19:35 04/30/21 15:22 Hydrocodone Bit/Acetaminophen 10/325 Mg Tablet PO 1 tab Q6H PRN Administration Pain Albuterol Sulfate 2 puff 04/28/21 20:00 05/01/21 05:32 Albuterol Sulfate (Ventolin Hfa) 18 Gm 1 Puff With Spacer IH 2 puff RTQID NAMAN Administration Albuterol Sulfate 2 puff 04/28/21 19:35 Albuterol Sulfate (Ventolin Hfa) 18 Gm 1 Puff With Spacer IH QID PRN Wheezing Alprazolam 0.5 mg 04/28/21 19:35 04/29/21 23:14 Alprazolam 0.5 Mg Tablet PO 0.5 mg QID PRN Administration Anxiety Aspirin 81 mg 04/28/21 21:00 04/30/21 20:39 Aspirin 81 Mg Tablet. PO 81 mg BEDTIME NAMAN Administration Dexamethasone Sodium Phosphate 4 mg 04/30/21 09:00 04/30/21 08:48 Dexamethasone Sod Phos 4 Mg/Ml Inj IM 4 mg DAILY NAMAN Administration Diltiazem HCl 60 mg 04/28/21 21:00 04/30/21 20:39 Diltiazem Hcl 60 Mg Tablet PO 60 mg BID NAMAN Administration CEFTRIAXONE/D5W 1 GM PREMIX 1 gm in 50 mls @ 75 mls/hr 04/28/21 18:00 04/30/21 08:49 Rocephin 1 Gm/50 Ml D5w IV 05/01/21 17:59 75 mls/hr DAILY NAMAN Administration Ketorolac Tromethamine 30 mg 04/30/21 08:29 04/30/21 21:02 Ketorolac Tromethamine 30 Mg/Ml Vial IVP 05/04/21 08:29 30 mg Q12H PRN Administration Pain Levothyroxine Sodium 50 mcg 04/29/21 07:30 05/01/21 05:47 Levothyroxine Sodium 50 Mcg Tablet PO 50 mcg QDAC NAMAN Administration Metformin HCl 500 mg 04/29/21 08:30 04/30/21 16:58 Metformin Hcl 500 Mg Tablet PO 500 mg BIDWM NAMAN Administration Mirtazapine 15 mg 04/28/21 21:00 04/30/21 20:39 Mirtazapine 15 Mg Tablet PO 15 mg BEDTIME NAMAN Administration Ondansetron HCl 4 mg 04/28/21 17:45 Ondansetron Hcl/Pf 4 Mg/2 Ml Sdv IVP Q6H PRN Nausea / Vomiting Pantoprazole Sodium 40 mg 04/29/21 06:30 05/01/21 05:47 Pantoprazole Sodium 40 Mg Tablet.Dr PO 40 mg QDAC NAMAN Administration Sodium Chloride 1 syr 04/28/21 17:45 04/29/21 20:21 0.9% Sodium Chloride 10 Ml Disp.Syrin IVF 1 syr PRN PRN Administration To flush IV Sodium Chloride 1 syr 04/30/21 05:00 05/01/21 05:48 0.9% Sodium Chloride 10 Ml Disp.Syrin IVF 1 syr Q8HR NAMAN Administration Tizanidine HCl 4 mg 04/28/21 19:35 Tizanidine Hcl 4 Mg Tablet PO Q12HR PRN MUSCLE SPASM Discontinued Medications Generic Name Dose Route Start Last Admin Trade Name Freq PRN Reason Stop Dose Admin Albuterol Sulfate 2 puff 04/28/21 16:55 04/28/21 17:15 Albuterol Sulfate (Ventolin Hfa) 18 Gm 1 Puff With Spacer IH 04/28/21 16:56 2 puff ONCE STA Administration Albuterol Sulfate 2 puff 04/28/21 21:00 Albuterol Sulfate (Ventolin Hfa) 18 Gm 1 Puff With Spacer IH QID NAMAN Sodium Chloride 1,000 mls @ 70 mls/hr 04/28/21 17:45 04/28/21 18:07 Sodium Chloride IV 04/29/21 08:02 70 mls/hr BOLUS STA Administration Metformin HCl 500 mg 04/28/21 21:00 04/28/21 21:47 Metformin Hcl 500 Mg Tablet PO 500 mg BID NAMAN Administration Phenazopyridine HCl 100 mg 04/28/21 17:55 04/28/21 18:07 Phenazopyridine Hcl 100 Mg Tablet PO 04/28/21 17:56 100 mg ONCE STA Administration Vital Signs: Temp Pulse Resp BP Pulse Ox 04/28/21 14:45 97.2 F L 107 H 22 135/87 92 L Discharge Plan Discharge Patient Disposition: ADMITTED INPATIENT Discharge Problem: Acute UTI, Acute hyponatremia, Anxiety, COPD (chronic obstructive pulmonary disease) ED Provider: JENELLE FISHMAN Physician Progress Note: Evaluated and treated patient /Agrees for admission [] UTI (eV) Details: Has suspected UTI Duration: 2-3 days Current symptoms: Reports dysuria, urinary frequency and urinary urgency Urinary Incontinence - Female Current symptoms: Reports urinary incontinence, urinary urgency and dysuria
[2021-04-28 17:10] LABS: BASOPHILS # (AUTO) 0.1 K/uL (0-0.2); BASOPHILS % (AUTO) 0.5 % (0.0-3.0); EOSINOPHILS # (AUTO) 0.4 K/ul (0.0-0.7); EOSINOPHILS % (AUTO) 3.7 % (0.0-7.0); HEMATOCRIT 37.2 % (37.0-47.0); HEMOGLOBIN 12.8 g/dl (12.0-16.0); IMMATURE GRANULOCYTE # (AUTO) 0.1 (0.0-1.0); LYMPHOCYTES % (AUTO) 29.1 (10.0-50.0); MEAN CORPUSCULAR HEMOGLOBIN 31.2 pg (27.0-31.0); MEAN CORPUSCULAR HGB CONC 34.4 (31.8-35.4); MEAN CORPUSCULAR VOLUME 90.7 fl (81.0-99.0); MONOCYTES # (AUTO) 0.7 K/uL (0.4-2.0); MONOCYTES % (AUTO) 6.3 (0-10); NEUTROPHILS # (AUTO) 6.2 K/ul (2.0-6.9); NEUTROPHILS % (AUTO) 59.4 % (42.2-75.2); PLATELET COUNT 264 10^3/uL (140-440); RDW COEFFICIENT OF VARIATION 12.9 % (11.6-14.8); WHITE BLOOD COUNT 10.46 K/ul (4.6-10.2)
[2021-04-28 17:16] LABS: BILIRUBIN,URINE Negative (NEGATIVE); CLARITY,URINE Cloudy (CLEAR); COLOR,URINE Yellow (YELLOW); GLUCOSE, URINE (UA) Negative (NEGATIVE); KETONES,URINE Negative (NEGATIVE); LEUKOCYTE ESTERASE ,URINE 2+ (NEGATIVE); NITRITE,URINE Positive (NEGATIVE); PH,URINE 5.5 (5-9); PROTEIN,URINE 1+ (NEGATIVE); URINE, BLOOD 2+ (NEGATIVE); UROBILINOGEN,URINE 0.2 (0.2)
[2021-04-28 17:22] LABS: BACTERIA,URINE 4+ (NOT PRESENT); URINE RBC, MICROSCOPIC 20-30 (0-2); URINE WBC, MICROSCOPIC 30-50 (0-2)
[2021-04-28 17:27] LABS: ALANINE AMINOTRANSFERASE 17.7 U/L (0-35); ALBUMIN 4.45 g/dL (3.5-5.0); ALKALINE PHOSPHATASE 114.5 U/L (53-141); ASPARTATE AMINO TRANSFERASE 27.6 U/L (14-36); BILIRUBIN,TOTAL 0.57 mg/dL (0.2-1.3); BLOOD UREA NITROGEN 14.4 mg/dL (7-17); CALCIUM 9.29 mg/dL (8.4-10.2); CARBON DIOXIDE 28.9 mmol/L (22-30.0); CHLORIDE 95.2 mmol/L (98-107); CREATININE 0.85 mg/dL (0.60-1.30); GLUCOSE 107.6 mg/dL (74-106); POTASSIUM 4.48 mmol/L (3.5-5.1); SODIUM 131.8 mmol/L (134.5-145); TOTAL PROTEIN 7.25 g/dL (6.3-8.2); URIC ACID 4.48 mg/dL (2.5-6.2)
--- NOTE | 2021-04-28 17:28 | DI ---
EXAM: Chest one view. HISTORY: Dyspnea COMPARISON: 11/12 chest x-ray FINDINGS: Heart is upper limits normal and pulmonary vascularity within normal limits. The lungs ar e satisfactory inflated with no active pulmonary infiltrate seen. Chronic appearing increased inters titial lung markings. Granulomatous calcifications are seen.No acute bone abnormality. IMPRESSION: Evidence of chronic lung findings with no active cardiac or pulmonary process seen.
[2021-04-28] MEDS ORDERED: ZOFRAN 4 MG/2 ML IVP PRN (17:45)
[2021-04-28] MEDS ORDERED: SODIUM CHLORIDE 1,000 ML IV STA (17:45)
[2021-04-28] MEDS ORDERED: PYRIDIUM PO STA (17:55)
[2021-04-28 18:01] LABS: BORDETELLA PARAPERTUSSIS (PCR) NOT DETECTED (NOT DETECT); BORDETELLA PERTUSSIS (PCR) NOT DETECTED (NOT DETECT); CHLAMYDIA PNEUMONIAE (PCR) NOT DETECTED (NOT DETECT); CORONAVIRUS 229E (PCR) NOT DETECTED (NOT DETECT); CORONAVIRUS HKU1 (PCR) NOT DETECTED (NOT DETECT); CORONAVIRUS NL63 (PCR) NOT DETECTED (NOT DETECT); CORONAVIRUS OC43 (PCR) NOT DETECTED (NOT DETECT); HUMAN METAPNEUMOVIRUS (PCR) NOT DETECTED (NOT DETECT); HUMAN RHINOVIRUS/ENTEROV (PCR) NOT DETECTED (NOT DETECT); INFLUENZA B (PCR) NOT DETECTED (NOT DETECT); MYCOPLASMA PNEUMONIAE (PCR) NOT DETECTED (NOT DETECT); PARAINFLUENZA VIRUS 1 (PCR) NOT DETECTED (NOT DETECT); PARAINFLUENZA VIRUS 2 (PCR) NOT DETECTED (NOT DETECT); PARAINFLUENZA VIRUS 3 (PCR) NOT DETECTED (NOT DETECT); PARAINFLUENZA VIRUS 4 (PCR) NOT DETECTED (NOT DETECT); RESPIRATORY SYNCYTIAL V (PCR) NOT DETECTED (NOT DETECT); SARS_COV_2 (PCR) NOT DETECTED (NOT DETECT)
[2021-04-28] MEDS: ROCEPHIN 1 GM/50 ML D5W 1 GM/50 ML BAG IV SCH (18:07)
[2021-04-28 18:47] LABS: ADENOVIRUS (PCR) NOT DETECTED (NOT DETECT)
[2021-04-28] MEDS ORDERED: ZANAFLEX PO PRN (19:35)
[2021-04-28] MEDS ORDERED: VENTOLIN HFA (PER PUFF-WITH SPACER) IH PRN (19:35)
[2021-04-28] MEDS: VENTOLIN HFA (PER PUFF-WITH SPACER) IH SCH (20:00)
[2021-04-28] MEDS ORDERED: VENTOLIN HFA (PER PUFF-WITH SPACER) IH SCH (21:00)
[2021-04-28] MEDS ORDERED: GLUCOPHAGE PO SCH (21:00)
[2021-04-28 21:09] VITALS: BMI 38.1
[2021-04-28] MEDS: NORCO 10-325 PO PRN (21:47)
[2021-04-28] MEDS: ASPIRIN EC PO SCH (21:47)
[2021-04-28] MEDS: CARDIZEM PO SCH (21:47)
[2021-04-28] MEDS: REMERON PO SCH (21:48)
[2021-04-29] MEDS: VENTOLIN HFA (PER PUFF-WITH SPACER) IH SCH ×4 (05:05→19:54)
[2021-04-29 05:17] LABS: BASOPHILS % (AUTO) 0.3 % (0.0-3.0); EOSINOPHILS # (AUTO) 0.2 K/ul (0.0-0.7); EOSINOPHILS % (AUTO) 2.1 % (0.0-7.0); HEMATOCRIT 33.3 % (37.0-47.0); HEMOGLOBIN 11.3 g/dl (12.0-16.0); IMMATURE GRANULOCYTE # (AUTO) 0.1 (0.0-1.0); IMMATURE GRANULOCYTE % (AUTO) 0.9 % (0.0-5.0); LYMPHOCYTES % (AUTO) 21.1 (10.0-50.0); MEAN CORPUSCULAR HEMOGLOBIN 31.1 pg (27.0-31.0); MEAN CORPUSCULAR HGB CONC 33.9 (31.8-35.4); MEAN CORPUSCULAR VOLUME 91.7 fl (81.0-99.0); MONOCYTES # (AUTO) 0.8 K/uL (0.4-2.0); MONOCYTES % (AUTO) 8.3 (0-10); NEUTROPHILS # (AUTO) 6.5 K/ul (2.0-6.9); NEUTROPHILS % (AUTO) 67.3 % (42.2-75.2); PLATELET COUNT 236 10^3/uL (140-440); RDW COEFFICIENT OF VARIATION 12.8 % (11.6-14.8); RED BLOOD COUNT 3.63 10^6/ul (4.20-5.40); WHITE BLOOD COUNT 9.68 K/ul (4.6-10.2)
[2021-04-29 05:32] LABS: ALANINE AMINOTRANSFERASE 16.6 U/L (0-35); ALBUMIN 3.73 g/dL (3.5-5.0); ALKALINE PHOSPHATASE 98.2 U/L (53-141); ASPARTATE AMINO TRANSFERASE 25.5 U/L (14-36); BILIRUBIN,TOTAL 0.48 mg/dL (0.2-1.3); BLOOD UREA NITROGEN 14.2 mg/dL (7-17); CALCIUM 9.02 mg/dL (8.4-10.2); CARBON DIOXIDE 27.5 mmol/L (22-30.0); CHLORIDE 102.2 mmol/L (98-107); CREATININE 0.76 mg/dL (0.60-1.30); GLUCOSE 129.9 mg/dL (74-106); POTASSIUM 4.3 mmol/L (3.5-5.1); SODIUM 135.9 mmol/L (134.5-145); TOTAL PROTEIN 6.36 g/dL (6.3-8.2)
[2021-04-29] MEDS: PROTONIX PO SCH (05:53)
[2021-04-29] MEDS: NORCO 10-325 PO PRN ×3 (08:06→19:31)
[2021-04-29] MEDS: GLUCOPHAGE PO SCH ×2 (08:06→17:21)
[2021-04-29] MEDS: CARDIZEM PO SCH ×2 (08:06→20:21)
[2021-04-29] MEDS: SYNTHROID PO SCH (08:06)
[2021-04-29] MEDS: ROCEPHIN 1 GM/50 ML D5W 1 GM/50 ML BAG IV SCH (08:07)
[2021-04-29] MEDS: XANAX PO PRN ×3 (10:11→23:14)
--- NOTE | 2021-04-29 12:49 | PN ---
DATE OF SERVICE: 04/28/2021 ADMIT NOTE SUBJECTIVE: The patient was hospitalized through the emergency room. She went to the emergency room with complaint of being shortness of breath as usual but also had dysuria. U/A was abnormal with 2+ leukocytes esterase, 2+ blood. This was discussed with Dr. Oconnor. The patient was hospitalized. The patient's oxygen saturation was 94% on room air. Declined arterial blood gases. COVID test was negative. 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 The patient since then has been anxious. She is an anxious woman. Heavy smoker. Her main problem is she is completely deaf and has hard time communicating with people because of deafness. The patient is going to be hospitalized for further treatment. Respiratory status will be monitored. REVIEW OF SYSTEMS: CONSTITUTIONAL: No night sweats. No fatigue, malaise, lethargy. No fever or chills. HEENT: Eyes: No visual changes. No eye pain. No eye discharge. ENT: No runny nose. No epistaxis. No sinus pain. No sore throat. No odynophagia. No congestion. RESPIRATORY: No cough, no congestion. No hemoptysis. No shortness of breath. CARDIOVASCULAR: No angina symptoms. No CHF symptoms. No atypical chest pain for CAD. No palpitations. No PND. No orthopnea. GASTROINTESTINAL: No abdominal pain. No nausea or vomiting. No diarrhea or constipation. No hematemesis. No hematochezia. GENITOURINARY: No urgency. No frequency. No dysuria. No hematuria. No obstructive symptoms. No discharge. No pain. No significant abnormal bleeding. MUSCULOSKELETAL: No musculoskeletal pain; no joint swelling. NEUROLOGICAL: No headache. No neck pain. No syncope. No seizures. No dizziness. PSYCHIATRIC: Not anxious. No depression. No suicidal thoughts. No homicidal thoughts. SKIN: No rash. No lesions. No wounds. ENDOCRINE: No unexplained weight loss. No weight gain. HEMATOLOGIC/LYMPHATIC: No anemia. No purpura. No petechiae. No prolonged or excessive bleeding. No palpable lymph nodes. PHYSICAL EXAMINATION: HEENT: Head normocephalic, atraumatic. Eyes: Extraocular muscles are intact. Pupils are equal, round and reactive to light and accommodation. Ears: No lesions. Nose appeared normal. Throat: No exudate or erythema. NECK: Supple. No JVD, no carotid bruit. No lymphadenopathy or thyromegaly. LUNGS: Decreased breath sounds bilaterally with wheeze. Percussion note normal. Chest symmetrical. HEART: S1, S2, no S3. No murmurs. No cyanosis or clubbing. No ascites. Pulses: Dorsalis pedis and posterior tibial pulses +1 to +2 bilaterally. ABDOMEN: Soft. Nontender. Bowel sounds active. No CVA tenderness. No mass felt. EXTREMITIES: No edema. Full range of motion of all extremities, equal. NEUROLOGIC: No focal deficit. Cranial nerves II through XII are grossly intact. No headache. No double vision. SKIN: Not dry. Intact. Turgor - normal. LYMPHATIC: No palpable lymph nodes/no lymphedema. MUSCULOSKELETAL: Normal joints with no swelling. Muscle tone is normal. PLAN: 1. The patient is going to be admitted 2. IV fluids 3. IV antibiotics Rocephin 4. Cultures will be done TIME SPENT: More than 30 minutes. Plan and coordination of the patient's care discussed in the presence of nurse. SUSAN
[2021-04-29] MEDS: REMERON PO SCH (20:21)
[2021-04-29] MEDS: ASPIRIN EC PO SCH (20:21)
[2021-04-30 05:05] LABS: BASOPHILS % (AUTO) 0.6 % (0.0-3.0); EOSINOPHILS # (AUTO) 0.2 K/ul (0.0-0.7); EOSINOPHILS % (AUTO) 3.8 % (0.0-7.0); HEMATOCRIT 34.2 % (37.0-47.0); HEMOGLOBIN 11.2 g/dl (12.0-16.0); IMMATURE GRANULOCYTE # (AUTO) 0.1 (0.0-1.0); IMMATURE GRANULOCYTE % (AUTO) 1.7 % (0.0-5.0); LYMPHOCYTES # (AUTO) 2.5 K/uL (0.60-3.4); LYMPHOCYTES % (AUTO) 39.9 (10.0-50.0); MEAN CORPUSCULAR HEMOGLOBIN 30.7 pg (27.0-31.0); MEAN CORPUSCULAR HGB CONC 32.7 (31.8-35.4); MEAN CORPUSCULAR VOLUME 93.7 fl (81.0-99.0); MONOCYTES # (AUTO) 0.5 K/uL (0.4-2.0); MONOCYTES % (AUTO) 7.6 (0-10); NEUTROPHILS # (AUTO) 2.9 K/ul (2.0-6.9); NEUTROPHILS % (AUTO) 46.4 % (42.2-75.2); PLATELET COUNT 233 10^3/uL (140-440); RDW COEFFICIENT OF VARIATION 12.9 % (11.6-14.8); RED BLOOD COUNT 3.65 10^6/ul (4.20-5.40); WHITE BLOOD COUNT 6.32 K/ul (4.6-10.2)
[2021-04-30 05:19] LABS: ALANINE AMINOTRANSFERASE 16.5 U/L (0-35); ALBUMIN 3.74 g/dL (3.5-5.0); ALKALINE PHOSPHATASE 99.4 U/L (53-141); ASPARTATE AMINO TRANSFERASE 22.2 U/L (14-36); BILIRUBIN,TOTAL 0.45 mg/dL (0.2-1.3); BLOOD UREA NITROGEN 17.1 mg/dL (7-17); CALCIUM 8.92 mg/dL (8.4-10.2); CARBON DIOXIDE 28.7 mmol/L (22-30.0); CHLORIDE 103.7 mmol/L (98-107); CREATININE 0.71 mg/dL (0.60-1.30); GLUCOSE 138.1 mg/dL (74-106); POTASSIUM 4.38 mmol/L (3.5-5.1); SODIUM 138.6 mmol/L (134.5-145); TOTAL PROTEIN 6.33 g/dL (6.3-8.2)
[2021-04-30] MEDS: PROTONIX PO SCH (05:39)
[2021-04-30] MEDS: VENTOLIN HFA (PER PUFF-WITH SPACER) IH SCH ×4 (05:39→21:19)
[2021-04-30] MEDS: SYNTHROID PO SCH (05:39)
[2021-04-30] MEDS: GLUCOPHAGE PO SCH ×2 (08:48→16:58)
[2021-04-30] MEDS: DECADRON IM SCH (08:48)
[2021-04-30] MEDS: CARDIZEM PO SCH ×2 (08:48→20:39)
[2021-04-30] MEDS: ROCEPHIN 1 GM/50 ML D5W 1 GM/50 ML BAG IV SCH (08:49)
[2021-04-30] MEDS: TORADOL IVP PRN ×2 (08:57→21:02)
--- NOTE | 2021-04-30 09:27 | PCM.PROG ---
Attending Provider: ATTENDING PROVIDER: Dr. SHIRA DIAZ DATE OF SERVICE: 04/30/21 SUBJECTIVE: This 75 year old /WHITE F was hospitalized 04/28/21 with UTI, e-coli. Symptoms of UTI has resolved. She has arthritis pain in knees and back. The patient is a heavy smoker and counseling for smoking done. REVIEW OF SYSTEMS: CONSTITUTIONAL: No night sweats. No fatigue, malaise, lethargy. No fever or chills. HEENT: Eyes: No visual changes. No eye pain. No eye discharge. ENT: No runny nose. No epistaxis. No sinus pain. No odynophagia. No congestion. RESPIRATORY: No cough, no congestion. No hemoptysis. No shortness of breath. CARDIOVASCULAR: No angina symptoms. No CHF symptoms. No atypical chest pain for CAD. No palpitations. No orthopnea.. GASTROINTESTINAL: No abdominal pain. No nausea or vomiting. No diarrhea or constipation. No hematemesis. No hematochezia. GENITOURINARY: No urgency. No frequency. No dysuria. No hematuria. No obstructive symptoms. No discharge. No pain. No significant abnormal bleeding. MUSCULOSKELETAL: No musculoskeletal pain; no joint swelling. Knee pain. Mild back pain. NEUROLOGICAL: Awake, alert, oriented to time, place and person. No headache. No neck pain. No syncope. No seizures. No dizziness. PSYCHIATRIC: Not anxious. No depression. No suicidal thoughts. No homicidal thoughts. SKIN: No rash. No lesions. No wounds. ENDOCRINE: No unexplained weight loss. No weight gain. HEMATOLOGIC/LYMPHATIC: No anemia. No purpura. No petechiae. No prolonged or excessive bleeding. No palpable lymph nodes. PHYSICAL EXAMINATION: GENERAL: The patient is awake, alert and oriented, lying in bed in no distress. VITAL SIGNS: Temperature 97.9 F, Pulse 75, Respiratory Rate 18, BP 122/68, Pulse Ox 99% HEENT: Head normocephalic, atraumatic. Eyes: Extraocular muscles are intact. Pupils are equal, round and reactive to light and accommodation. Ears: No lesions. Nose appeared normal. Throat: No exudate or erythema. NECK: Supple. No JVD, no carotid bruit. No lymphadenopathy or thyromegaly. LUNGS: Decreased breath sounds with bilateral mild wheeze. Clear to auscultation. Percussion note normal. Chest symmetrical. HEART: S1, S2, no S3. No murmurs. No cyanosis or clubbing. No ascites. Pulses: Dorsalis pedis and posterior tibial pulses +1 to +2 both sides. ABDOMEN: Soft. Non-tender. Bowel sounds active. No CVA tenderness. No mass felt. EXTREMITIES: No edema. Full range of motion of all extremities, equal. NEUROLOGIC: No focal deficit. Cranial nerves II through XII are grossly intact. No headache, no double vision or headache. SKIN: Warm and dry. Intact. Turgor-normal. LYMPHATIC: No palpable lymph nodes/no lymphedema. MUSCULOSKELETAL: Normal joints with no swelling. Muscle tone is normal. LAB REVIEW: 04/30/21 04:58 04/30/21 04:58 04/30/21 04:58: Sodium 138.6, Potassium 4.38, Chloride 103.7, Carbon Dioxide 28.7, Anion Gap 10.58, BUN 17.1 H, Creatinine 0.71, Estimated GFR (MDRD) 80.00, BUN/Creatinine Ratio 24.08, Glucose 138.1 H, Calcium 8.92, Total Bilirubin 0.45, AST 22.2, ALT 16.5, Alkaline Phosphatase 99.4, Total Protein 6.33, Albumin 3.74, Globulin 2.59, Albumin/Globulin Ratio 1.44 04/30/21 04:58: WBC 6.32, RBC 3.65 L, Hgb 11.2 L, Hct 34.2 L, MCV 93.7, MCH 30.7, MCHC 32.7, RDW Coeff of [place] 12.9, Plt Count 233, Immature Gran % (Auto) 1.7, Neut % (Auto) 46.4, Lymph % (Auto) 39.9, [place] % (Auto) 7.6, Eos % (Auto) 3.8, Baso % (Auto) 0.6, Neut # (Auto) 2.9, Lymph # (Auto) 2.5, [place] # (Auto) 0.5, Eos # (Auto) 0.2, Baso # (Auto) 0.0, Immature Gran # (Auto) 0.1 ASSESSMENT: Please see below. 1. UTI, e-coli sensitive Rocephin 2. Dehydration resolved 3. Generalized osteoarthritis given Toradol 30mg IV Q 12 and 1cc Decadrone 4. Severe chronic lung disease with history of heavy smoking. Counseling for smoking done. SCRIBED BY: TARA ALAS, [employer]ement [employer] Operator scribed while in presence of service performed by Dr. SHIRA DIAZ on 04/30/21 ([id number])
[2021-04-30] MEDS: NORCO 10-325 PO PRN (15:22)
[2021-04-30] MEDS: REMERON PO SCH (20:39)
[2021-04-30] MEDS: ASPIRIN EC PO SCH (20:39)
[2021-05-01] MEDS: VENTOLIN HFA (PER PUFF-WITH SPACER) IH SCH ×3 (05:32→13:51)
[2021-05-01 05:40] LABS: BASOPHILS # (AUTO) 0.1 K/uL (0-0.2); BASOPHILS % (AUTO) 0.8 % (0.0-3.0); EOSINOPHILS % (AUTO) 0.3 % (0.0-7.0); HEMATOCRIT 32.6 % (37.0-47.0); HEMOGLOBIN 11.2 g/dl (12.0-16.0); IMMATURE GRANULOCYTE # (AUTO) 0.2 (0.0-1.0); IMMATURE GRANULOCYTE % (AUTO) 2.8 % (0.0-5.0); LYMPHOCYTES # (AUTO) 1.6 K/uL (0.60-3.4); LYMPHOCYTES % (AUTO) 21.1 (10.0-50.0); MEAN CORPUSCULAR HEMOGLOBIN 31.5 pg (27.0-31.0); MEAN CORPUSCULAR HGB CONC 34.4 (31.8-35.4); MEAN CORPUSCULAR VOLUME 91.6 fl (81.0-99.0); MONOCYTES # (AUTO) 0.5 K/uL (0.4-2.0); MONOCYTES % (AUTO) 6.1 (0-10); NEUTROPHILS # (AUTO) 5.3 K/ul (2.0-6.9); NEUTROPHILS % (AUTO) 68.9 % (42.2-75.2); PLATELET COUNT 247 10^3/uL (140-440); RDW COEFFICIENT OF VARIATION 12.4 % (11.6-14.8); RED BLOOD COUNT 3.56 10^6/ul (4.20-5.40); WHITE BLOOD COUNT 7.72 K/ul (4.6-10.2)
[2021-05-01 05:47] LABS: ALANINE AMINOTRANSFERASE 15.9 U/L (0-35); ALBUMIN 3.87 g/dL (3.5-5.0); ALKALINE PHOSPHATASE 95.9 U/L (53-141); BILIRUBIN,TOTAL 0.33 mg/dL (0.2-1.3); BLOOD UREA NITROGEN 29.2 mg/dL (7-17); CALCIUM 9.2 mg/dL (8.4-10.2); CARBON DIOXIDE 26.8 mmol/L (22-30.0); CHLORIDE 103.5 mmol/L (98-107); CREATININE 0.64 mg/dL (0.60-1.30); POTASSIUM 4.55 mmol/L (3.5-5.1); SODIUM 138.2 mmol/L (134.5-145); TOTAL PROTEIN 6.48 g/dL (6.3-8.2)
[2021-05-01] MEDS: SYNTHROID PO SCH (05:47)
[2021-05-01] MEDS: PROTONIX PO SCH (05:47)
[2021-05-01 06:33] VITALS: BP 172/74; TEMP 97.4
[2021-05-01] MEDS: GLUCOPHAGE PO SCH (09:00)
[2021-05-01] MEDS: CARDIZEM PO SCH (09:01)
[2021-05-01] MEDS: NORCO 10-325 PO PRN (09:01)
--- NOTE | 2021-05-01 09:15 | PCM.PROG ---
Attending Provider: ATTENDING PROVIDER: Dr. SHIRA DIAZ DATE OF SERVICE: 05/01/21 SUBJECTIVE: This 75 year old /WHITE F was hospitalized 04/28/21 with UTI, e-coli sensitive to Rocephin. Going to be discharge home on Kelfex. At present time she is asymptomatic as far as UTI. Medical condition is stable. REVIEW OF SYSTEMS: CONSTITUTIONAL: No night sweats. No fatigue, malaise, lethargy. No fever or chills. HEENT: Eyes: No visual changes. No eye pain. No eye discharge. ENT: No runny nose. No epistaxis. No sinus pain. No odynophagia. No congestion. Hard of hearing. RESPIRATORY: No cough, no congestion. No hemoptysis. No shortness of breath. CARDIOVASCULAR: No angina symptoms. No CHF symptoms. No atypical chest pain for CAD. No palpitations. No orthopnea.. GASTROINTESTINAL: No abdominal pain. No nausea or vomiting. No diarrhea or constipation. No hematemesis. No hematochezia. GENITOURINARY: No urgency. No frequency. No dysuria. No hematuria. No obstructive symptoms. No discharge. No pain. No significant abnormal bleeding. MUSCULOSKELETAL: No musculoskeletal pain; no joint swelling. Arthritic pain. NEUROLOGICAL: Awake, alert, oriented to time, place and person. No headache. No neck pain. No syncope. No seizures. No dizziness. PSYCHIATRIC: Not anxious. No depression. No suicidal thoughts. No homicidal thoughts. SKIN: No rash. No lesions. No wounds. ENDOCRINE: No unexplained weight loss. No weight gain. HEMATOLOGIC/LYMPHATIC: No anemia. No purpura. No petechiae. No prolonged or excessive bleeding. No palpable lymph nodes. PHYSICAL EXAMINATION: GENERAL: The patient is awake, alert and oriented, lying in bed in no distress. VITAL SIGNS: Temperature 97.4 F, Pulse 74, Respiratory Rate 20, BP 172/74, Pulse Ox 95% HEENT: Head normocephalic, atraumatic. Eyes: Extraocular muscles are intact. Pupils are equal, round and reactive to light and accommodation. Ears: No lesions. Nose appeared normal. Throat: No exudate or erythema. NECK: Supple. No JVD, no carotid bruit. No lymphadenopathy or thyromegaly. LUNGS: Decreased breath sounds. Mild wheezing. Clear to auscultation. Percussion note normal. Chest symmetrical. HEART: S1, S2, no S3. No murmurs. No cyanosis or clubbing. No ascites. Pulses: Dorsalis pedis and posterior tibial pulses +2 both sides. ABDOMEN: Soft. Non-tender. Bowel sounds active. No CVA tenderness. No mass felt. EXTREMITIES: No edema. Full range of motion of all extremities, equal. NEUROLOGIC: No focal deficit. Cranial nerves II through XII are grossly intact. No headache, no double vision or headache. SKIN: Warm and dry. Intact. Turgor-normal. LYMPHATIC: No palpable lymph nodes/no lymphedema. MUSCULOSKELETAL: Normal joints with no swelling. Muscle tone is normal. LAB REVIEW: 05/01/21 05:06 05/01/21 05:06 05/01/21 05:06: Sodium 138.2, Potassium 4.55, Chloride 103.5, Carbon Dioxide 26.8, Anion Gap 12.45, BUN 29.2 H, Creatinine 0.64, Estimated GFR (MDRD) 91.00, BUN/Creatinine Ratio 45.62, Glucose 200.0 H, Calcium 9.20, Total Bilirubin 0.33, AST 21.0, ALT 15.9, Alkaline Phosphatase 95.9, Total Protein 6.48, Albumin 3.87, Globulin 2.61, Albumin/Globulin Ratio 1.48 05/01/21 05:06: WBC 7.72, RBC 3.56 L, Hgb 11.2 L, Hct 32.6 L, MCV 91.6, MCH 31.5 H, MCHC 34.4, RDW Coeff of [place] 12.4, Plt Count 247, Immature Gran % (Auto) 2.8, Neut % (Auto) 68.9, Lymph % (Auto) 21.1, [place] % (Auto) 6.1, Eos % (Auto) 0.3, Baso % (Auto) 0.8, Neut # (Auto) 5.3, Lymph # (Auto) 1.6, [place] # (Auto) 0.5, Eos # (Auto) 0.0, Baso # (Auto) 0.1, Immature Gran # (Auto) 0.2 ASSESSMENT: Please see below. 1. UTI recurrent e-coli will refer to urologist 2. 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 Diabetes Mellitus 4. Morbid obesity 5. Chronic anemia 6. Smoking with chronic lung disease 7. COVID negative. PLAN: 1. Discharge home on Keflex 2. Continue rest of medications 3. Advised to lose weight 4. Counseling for smoking done. Plan and coordination of the patient's care discussed in the presence of Harnessmaker and nurse. CONDITION: Stable SCRIBED BY: TARA ALAS Stogy Maker scribed while in presence of service performed by Dr. SHIRA DIAZ on 05/01/21 ([id number])
--- NOTE | 2021-05-01 09:24 | HP ---
DATE OF SERVICE: 05/01/2021 FINAL DIAGNOSIS: 1. DISCHARGE INSTRUCTIONS: Followup appointment in days with . MEDICATIONS AT DISCHARGE: NEW PRESCRIPTIONS: DISCONTINUED MEDICATIONS: DIET INSTRUCTIONS: ACTIVITY: SMOKING: DISEASE SPECIFIC EDUCATION: HOSPITAL COURSE: 75 year old white female hospitalized with UTI. The patient was treated with Rocephin. E-coli grew from urine cultures which was sensitive to Rocephin. The patient has been afebrile and condition has improved. Strength has come back. Dehydration has resolved and skin turgor is better. She will discharged today with urological consultation. Counseling for smoking done. She was advised to drink a lot of fluids. She is going to be seen in 7 days for a followup. Appointment for cochlear transplant on left ear on 05/22/21 at [place]. Diabetes Mellitus is under control to some extent with A1c being close to 7. COVID negative. She is morbidly obese, advised to lose weight. She is advised to increase activity. She lives by herself and advised to eat regularly. CONDITION: Stable TIME SPENT: More than 60 minutes. SUSAN
--- NOTE | 2021-05-01 09:34 | DS ---
DATE OF SERVICE: 05/01/2021 FINAL DIAGNOSIS: 1. UTI, E-COLI ORGANISM 2. DEHYDRATION 3. HYPONATREMIA, RESOLVED 4. COPD, OXYGEN USE AT HOME 5. HYPERTENSION 6. HYPOTHYROIDISM 7. GERD 8. ANXIETY (DR. DOSS) 9. DEPRESSION (DR. DOSS) 10.CHRONIC LOW BACK PAIN (DR. HATFIELD) 11.ARTHRITIS, LEFT HIP AND LUMBAR SPINE 12.SENSORINERUAL HEARING LOSS BOTH EARS 13.COCHLEAR IMPLANT, LEFT EAR ([place]) 14.OBESITY, BMI 38 15.RECURRENT UTI 16.CONTINUED TOBACCO USE 17.NON-COMPLIANCE WITH LIFESTYLE, MEDICATIONS, DIET AND FOLLOW-UP 18.PARTIAL HYSTERECTOMY 19.CHOLECYSTECTOMY 20.ECHOCARDIOGRAM, 02/2021, [facility], LVEF 58% LAST VITALS: Temp Pulse Resp BP Pulse Ox 97.4 F L 74 20 172/74 H 98 05/01/21 06:00 05/01/21 06:00 05/01/21 08:00 05/01/21 06:00 05/01/21 09:54 DISCHARGE INSTRUCTIONS: DISCHARGE HOME TODAY. AN APPOINTMENT IS SCHEDULED WITH DR. DIAZ/GIDEON TSANG APRN/MOHIT PANTOJA APRN ON MAY 07 AT 3 PM. PATIENT ADVISED TO BRING URINE SPECIMEN TO APPOINTMENT. A REFERRAL HAS BEEN SENT TO [facility] UR[facility] DUE TO RECURRENT UTI. PATIENT WILL BE CALLED AT HOME IN THE NEXT 1-2 WEEKS FOR THE APPOINTMENT. CODE STATUS: DNR TAKE THESE MEDICATIONS AT HOME: Hydrocodone Bitart/Acetaminophen (Hydrocodone Bit/Acetaminophen 10/325 Mg Tablet) 1 tab PO Q6H PRN PRN Reason: Pain Last Admin: 05/01/21 09:01 Dose: 1 tab Documented by: Albuterol Sulfate (Albuterol Sulfate (Ventolin Hfa) 18 Gm 1 Puff With Spacer) 2 puff IH QID PRN PRN Reason: Wheezing Alprazolam (Alprazolam 0.5 Mg Tablet) 0.5 mg PO QID PRN PRN Reason: Anxiety Last Admin: 04/29/21 23:14 Dose: 0.5 mg Documented by: Aspirin (Aspirin 81 Mg Tablet.) 81 mg PO BEDTIME [facility] Last Admin: 04/30/21 20:39 Dose: 81 mg Documented by: Diltiazem HCl (Diltiazem Hcl 60 Mg Tablet) 60 mg PO BID [facility] Last Admin: 05/01/21 09:01 Dose: 60 mg Documented by: Levothyroxine Sodium (Levothyroxine Sodium 50 Mcg Tablet) 50 mcg PO QDAC [facility] Last Admin: 05/01/21 05:47 Dose: 50 mcg Documented by: Metformin HCl (Metformin Hcl 500 Mg Tablet) 500 mg PO BIDWM [facility] Last Admin: 05/01/21 09:00 Dose: 500 mg Documented by: Mirtazapine (Mirtazapine 15 Mg Tablet) 15 mg PO BEDTIME [facility] Last Admin: 04/30/21 20:39 Dose: 15 mg Documented by: Pantoprazole Sodium (Pantoprazole Sodium 40 Mg Tablet.) 40 mg PO QDAC [facility] Last Admin: 05/01/21 05:47 Dose: 40 mg Tizanidine HCl (Tizanidine Hcl 4 Mg Tablet) 4 mg PO Q12HR PRN PRN Reason: MUSCLE SPASM KEFLEX 500 MG TID FOR 7 DAYS (NEW RX) ALLERGIES: simvastatin [From Zocor] Allergy (Mild, Verified 04/28/21 16:45) Rash atorvastatin [From Lipitor] Adverse Reaction (Mild, Verified 04/28/21 16:45) muscle pain rosuvastatin [From Crestor] Adverse Reaction (Mild, Verified 04/28/21 16:45) muscle pain DISCONTINUED MEDICATIONS: NONE NEW PRESCRIPTIONS: KEFLEX 500 MG TID FOR 7 DAYS SMOKING: STRONGLY ENCOURAGED TO STOP SMOKING COUNSELING PROVIDED DISEASE SPECIFIC EDUCATION: URINARY TRACT INFECTION: CAUSES AND PREVENTION REFERRAL TO UROLOGY ANTIBIOTIC APPOINTMENT LAB REVIEW: 05/01/21 05:06 05/01/21 05:06 05/01/21 05:06: Sodium 138.2, Potassium 4.55, Chloride 103.5, Carbon Dioxide 26.8, Anion Gap 12.45, BUN 29.2 H, Creatinine 0.64, Estimated GFR (MDRD) 91.00, BUN/Creatinine Ratio 45.62, Glucose 200.0 H, Calcium 9.20, Total Bilirubin 0.33, AST 21.0, ALT 15.9, Alkaline Phosphatase 95.9, Total Protein 6.48, Albumin 3.87, Globulin 2.61, Albumin/Globulin Ratio 1.48 05/01/21 05:06: WBC 7.72, RBC 3.56 L, Hgb 11.2 L, Hct 32.6 L, MCV 91.6, MCH 31.5 H, MCHC 34.4, RDW Coeff of [place] 12.4, Plt Count 247, Immature Gran % (Auto) 2.8, Neut % (Auto) 68.9, Lymph % (Auto) 21.1, [place] % (Auto) 6.1, Eos % (Auto) 0.3, Baso % (Auto) 0.8, Neut # (Auto) 5.3, Lymph # (Auto) 1.6, [place] # (Auto) 0.5, Eos # (Auto) 0.0, Baso # (Auto) 0.1, Immature Gran # (Auto) 0.2 DIET: CONSISTENT CARBOHYDRATES LIQUIDS ENCOURAGED (WATER) ACTIVITY: RESUME TOLERATED ADVISED TO WALK SHORT DISTANCES SEVERAL TIMES DAILY CONTINUE TO USE OXYGEN AT NIGHT AND NEEDED CONTINUE TO CHECK BLOOD SUGARS AT LEAST 2 TIMES DAILY HOSPITAL COURSE: 75 year old white female hospitalized with UTI. The patient was treated with Rocephin. E-coli grew from urine cultures which was sensitive to Rocephin. The patient has been afebrile and condition has improved. Strength has come back. Dehydration has resolved and skin turgor is better. She will discharged today with urological consultation. Counseling for smoking done. She was advised to drink a lot of fluids. She is going to be seen in 7 days for a followup. Appointment for cochlear transplant on left ear on 05/22/21 at [place]. Diabetes Mellitus is under control to some extent with A1c being close to 7. COVID negative. She is morbidly obese, advised to lose weight. She is advised to increase activity. She lives by herself and advised to eat regularly. CONDITION: Stable TIME SPENT: More than 60 minutes. CHARLESD
[2021-05-01] MEDS: DECADRON IM SCH (09:47)
[2021-05-01] MEDS: ROCEPHIN 1 GM/50 ML D5W 1 GM/50 ML BAG IV SCH (09:48)
--- NOTE | 2021-05-01 12:42 | CM.DICTOOL ---
ADMISSION: 04/28/21 19:56 DISCHARGE: MAY 01, 2021 DATE OF SERVICE: 05/01/21 FINAL DIAGNOSIS UTI, E-COLI ORGANISM DEHYDRATION HYPONATREMIA, RESOLVED COPD, OXYGEN USE AT HOME HYPERTENSION HYPOTHYROIDISM GERD ANXIETY (DR. DOSS) DEPRESSION (DR. DOSS) CHRONIC LOW BACK PAIN (DR. HATFIELD) ARTHRITIS, LEFT HIP AND LUMBAR SPINE SENSORINERUAL HEARING LOSS BOTH EARS COCHLEAR IMPLANT, LEFT EAR ([place]) OBESITY, BMI 38 RECURRENT UTI CONTINUED TOBACCO USE NON-COMPLIANCE WITH LIFESTYLE, MEDICATIONS, DIET AND FOLLOW-UP PARTIAL HYSTERECTOMY CHOLECYSTECTOMY ECHOCARDIOGRAM, 02/2021 [facility] LVEF 58% LAST VITALS Temp Pulse Resp BP Pulse Ox 97.4 F L 74 20 172/74 H 98 05/01/21 06:00 05/01/21 06:00 05/01/21 08:00 05/01/21 06:00 05/01/21 09:54 TAKE THESE MEDICATIONS AT HOME Hydrocodone Bitart/Acetaminophen (Hydrocodone Bit/Acetaminophen 10/325 Mg Tablet) 1 tab PO Q6H PRN PRN Reason: Pain Last Admin: 05/01/21 09:01 Dose: 1 tab Documented by: Albuterol Sulfate (Albuterol Sulfate (Ventolin Hfa) 18 Gm 1 Puff With Spacer) 2 puff IH QID PRN PRN Reason: Wheezing Alprazolam (Alprazolam 0.5 Mg Tablet) 0.5 mg PO QID PRN PRN Reason: Anxiety Last Admin: 04/29/21 23:14 Dose: 0.5 mg Documented by: Aspirin (Aspirin 81 Mg Tablet.) 81 mg PO BEDTIME [facility] Last Admin: 04/30/21 20:39 Dose: 81 mg Documented by: Diltiazem HCl (Diltiazem Hcl 60 Mg Tablet) 60 mg PO BID [facility] Last Admin: 05/01/21 09:01 Dose: 60 mg Documented by: Levothyroxine Sodium (Levothyroxine Sodium 50 Mcg Tablet) 50 mcg PO QDAC [facility] Last Admin: 05/01/21 05:47 Dose: 50 mcg Documented by: Metformin HCl (Metformin Hcl 500 Mg Tablet) 500 mg PO BIDWM [facility] Last Admin: 05/01/21 09:00 Dose: 500 mg Documented by: Mirtazapine (Mirtazapine 15 Mg Tablet) 15 mg PO BEDTIME [facility] Last Admin: 04/30/21 20:39 Dose: 15 mg Documented by: Pantoprazole Sodium (Pantoprazole Sodium 40 Mg Tablet.) 40 mg PO QDAC [facility] Last Admin: 05/01/21 05:47 Dose: 40 mg Tizanidine HCl (Tizanidine Hcl 4 Mg Tablet) 4 mg PO Q12HR PRN PRN Reason: MUSCLE SPASM KEFLEX 500 MG TID FOR 7 DAYS (NEW RX) ALLERGIES simvastatin [From Zocor] Allergy (Mild, Verified 04/28/21 16:45) Rash atorvastatin [From Lipitor] Adverse Reaction (Mild, Verified 04/28/21 16:45) muscle pain rosuvastatin [From Crestor] Adverse Reaction (Mild, Verified 04/28/21 16:45) muscle pain DISCONTINUED MEDICATIONS NONE NEW PRESCRIPTIONS: KEFLEX 500 MG TID FOR 7 DAYS SMOKING: STRONGLY ENCOURAGED TO STOP SMOKING COUNSELING PROVIDED DISEASE SPECIFIC EDUCATION: URINARY TRACT INFECTION: CAUSES AND PREVENTION REFERRAL TO UROLOGY ANTIBIOTIC APPOINTMENT LAB REVIEW: 05/01/21 05:06 05/01/21 05:06 05/01/21 05:06: Sodium 138.2, Potassium 4.55, Chloride 103.5, Carbon Dioxide 26.8, Anion Gap 12.45, BUN 29.2 H, Creatinine 0.64, Estimated GFR (MDRD) 91.00, BUN/Creatinine Ratio 45.62, Glucose 200.0 H, Calcium 9.20, Total Bilirubin 0.33, AST 21.0, ALT 15.9, Alkaline Phosphatase 95.9, Total Protein 6.48, Albumin 3.87, Globulin 2.61, Albumin/Globulin Ratio 1.48 05/01/21 05:06: WBC 7.72, RBC 3.56 L, Hgb 11.2 L, Hct 32.6 L, MCV 91.6, MCH 31.5 H, MCHC 34.4, RDW Coeff of [place] 12.4, Plt Count 247, Immature Gran % (Auto) 2.8, Neut % (Auto) 68.9, Lymph % (Auto) 21.1, [place] % (Auto) 6.1, Eos % (Auto) 0.3, Baso % (Auto) 0.8, Neut # (Auto) 5.3, Lymph # (Auto) 1.6, [place] # (Auto) 0.5, Eos # (Auto) 0.0, Baso # (Auto) 0.1, Immature Gran # (Auto) 0.2 PLAN: DISCHARGE HOME TODAY DIET: CONSISTENT CARBOHYDRATES LIQUIDS ENCOURAGED (WATER) ACTIVITY: RESUME TOLERATED ADVISED TO WALK SHORT DISTANCES SEVERAL TIMES DAILY CONTINUE TO USE OXYGEN AT NIGHT AND NEEDED CONTINUE TO CHECK BLOOD SUGARS AT LEAST 2 TIMES DAILY AN APPOINTMENT IS SCHEDULED WITH DR. DIAZ/GIDEON TSANG APRN/MOHIT PANTOJA APRN ON MAY 07 AT 3 PM PATIENT ADVISED TO BRING URINE SPECIMEN TO APPOINTMENT A REFERRAL HAS BEEN SENT TO [facility] UR[facility] DUE TO RECURRENT UTI. PATIENT WILL BE CALLED AT HOME IN THE NEXT 1-2 WEEKS FOR THE APPOINTMENT CODE STATUS: DNR MS LUNA IS ALERT AND ORIENTED X 4. SHE IS VERY HARD OF HEARING. SHE RECENTLY RECEIVED A COCHLEAR IMPLANT TO THE LEFT EAR. SHE REPORTS "I HAVE TO GET USED TO IT". SHE INDICATES SHE HAS AN APPOINTMENT AT [place] LATER THIS MONTH () FOR FOLLOW-UP. MS. LUNA LIVES ALONE FOLLOWING THE OF HER . HER CHILDREN ARE SUPPORTIVE. MS. LUNA IS INDEPENDENT WITH ACTIVITIES OF DAILY LIVING. SHE IS CONTINENT OF BOWEL AND BLADDER. SHE HAS A GOOD APPETITE AND CONSUMES 50-75% OF HER MEALS. MS. LUNA RECEIVES MEALS FROM [employer] AT NOON. SHE HAS OXYGEN, ROLLATOR, SHOWER CHAIR, GRAB BAR IN BATHROOM AND GLUCOMETER FOR HER USE AT HOME. HYDRATION STATUS HAS IMPROVED. SKIN CONDITION IS GOOD, NO OPEN WOUNDS OR DECUBITUS ULCERS NOTED. SHIRA DIAZ MD
--- NOTE | 2021-05-01 13:00 | PN ---
DATE OF SERVICE: 04/29/2021 SUBJECTIVE: The patient was seen and examined. The patient is feeling better. Hydration status seems to have improved. She is afebrile. REVIEW OF SYSTEMS: CONSTITUTIONAL: No night sweats. No fatigue, malaise, lethargy. No fever or chills. HEENT: Eyes: No visual changes. No eye pain. No eye discharge. ENT: No runny nose. No epistaxis. No sinus pain. No sore throat. No odynophagia. No congestion. RESPIRATORY: No cough, no congestion. No hemoptysis. No shortness of breath. CARDIOVASCULAR: No angina symptoms. No CHF symptoms. No atypical chest pain for CAD. No palpitations. No PND. No orthopnea. GASTROINTESTINAL: No abdominal pain. No nausea or vomiting. No diarrhea or constipation. No hematemesis. No hematochezia. GENITOURINARY: No urgency. No frequency. No dysuria. No hematuria. No obstructive symptoms. No discharge. No pain. No significant abnormal bleeding. MUSCULOSKELETAL: No musculoskeletal pain; no joint swelling. NEUROLOGICAL: No headache. No neck pain. No syncope. No seizures. No dizziness. PSYCHIATRIC: Not anxious. No depression. No suicidal thoughts. No homicidal thoughts. SKIN: No rash. No lesions. No wounds. ENDOCRINE: No unexplained weight loss. No weight gain. HEMATOLOGIC/LYMPHATIC: No anemia. No purpura. No petechiae. No prolonged or excessive bleeding. No palpable lymph nodes. PHYSICAL EXAMINATION: HEENT: Head normocephalic, atraumatic. Eyes: Extraocular muscles are intact. Pupils are equal, round and reactive to light and accommodation. Ears: No lesions. Nose appeared normal. Throat: No exudate or erythema. Cochlear transplant done on the left ear. She is recovering from it for past three weeks. She is barely able to understand me. NECK: Supple. No JVD, no carotid bruit. No lymphadenopathy or thyromegaly. LUNGS: Decreased breath sounds but clear to auscultation. Percussion note normal. Chest symmetrical. HEART: S1, S2, no S3. No murmurs. No cyanosis or clubbing. No ascites. Pulses: Dorsalis pedis and posterior tibial pulses +1 to +2 bilaterally. ABDOMEN: Soft. Nontender. Bowel sounds active. No CVA tenderness. No mass felt. EXTREMITIES: No edema. Full range of motion of all extremities, equal. NEUROLOGIC: No focal deficit. Cranial nerves II through XII are grossly intact. No headache. No double vision. SKIN: Not dry. Intact. Turgor - normal. LYMPHATIC: No palpable lymph nodes/no lymphedema. MUSCULOSKELETAL: Normal joints with no swelling. Muscle tone is normal. ASSESSMENT: 1. UTI 2. Severe chronic lung disease 3. Smoking 4. Morbid obesity PLAN: 1. Continue Rocephin 2. Continue to encourage the patient to eat 3. Counseling for smoking done. TIME SPENT: More than 30 minutes. Plan and coordination of the patient's care discussed in the presence of nurse. SUSAN
--- NOTE | 2021-05-01 13:35 | PN ---
04/28/2021: Level 5 04/29/2021: Intermediate 04/30/2021: Intermediate 05/01/2021: D as in discharge MTDD
--- NOTE | 2021-05-04 10:49 | HP ---
DATE OF SERVICE: 04/28/2021 REASON FOR HOSPITALIZATION: Burning and frequency of urination and also complains of shortness of breath as usual. HISTORY OF PRESENT ILLNESS: 75 year old white female with symptoms for nearly 3-4 days. The patient has been feeling weak and tired and denied of any chills or fever. She was COVID negative in the emergency room. She has chronic cough from heavy smoking. PAST MEDICAL HISTORY: Bronchitis COPD Heavy smoking Chronic gastritis Gastroesophageal reflux disease Chronic history of respiratory failure Hypothyroidism Dyslipidemia Depression Anxiety followed by Dr. Guo Reflux disease Dependent leg edema Morbid obesity Low back pain, Dr. Copeland Recurrent UTI Non compliance of diet, lifestyle, medications and followup Complete deafness, sensory loss PAST SURGICAL HISTORY: Cochlear transplant on the left ear Colonoscopy declined by the patient Declined bone density REVIEW OF SYSTEMS: CONSTITUTIONAL: No night sweats. Fatigue and weakness as usual. No fever or chills. HEENT: Eyes: No visual changes. No eye pain. No eye discharge. ENT: No runny nose. No epistaxis. No sinus pain. No sore throat. No odynophagia. No ear pain. No congestion. The patient had cochlear surgery, left ear. Sensory deafness two weeks ago at [place]. RESPIRATORY: Chronic cough, no congestion. No hemoptysis. Shortness of breath on minimal exertion as usual. CARDIOVASCULAR: No angina symptoms. No CHF symptoms. No atypical chest pain for CAD. No palpitations. No PND. No orthopnea. GASTROINTESTINAL: No abdominal pain. No nausea or vomiting. No diarrhea or constipation. No hematemesis. No hematochezia. GENITOURINARY: No urgency. Burning on urination for 4 days. No frequency. No dysuria. No hematuria. No obstructive symptoms. No discharge. No pain. No significant abnormal bleeding. MUSCULOSKELETAL: No musculoskeletal pain. No joint swelling. No arthritis. Generalized aches and pains. Knee pain. Severe generalized osteoarthritis. NEUROLOGICAL: No headache. No neck pain. No syncope. No seizures. No dizziness. PSYCHIATRIC: Not anxious. No depression. No suicidal thoughts. No homicidal thoughts. SKIN: No rash. No lesions. No wounds. ENDOCRINE: No unexplained weight loss. No weight gain. HEMATOLOGIC/LYMPHATIC: No anemia. No purpura. No petechiae. No prolonged or excessive bleeding. No palpable lymph nodes. PERSONAL/FAMILY/SOCIAL HISTORY: The patient is a and lives by herself with help of family. Does all activity of daily living. No history of fall. Smokes, heavy. No alcohol abuse. MEDICATIONS: [place] 10/325mg Q 6 hourly Diltiazem 60mg PO BID Aspirin 81mg PO daily ProAir HFA two puff QID PRN Xanax 0.5mg PO QID PRN Levothyroxine 50mcg PO daily Zanaflex 4mg PO Q 12 hour Metformin 500mg PO twice a day Pantoprazole 40mg Q AM Remeron 15mg at bedtime ALLERGIES: Simvastatin Atorvastatin Rosuvastatin PHYSICAL EXAMINATION: GENERAL: The patient is oriented to time, place and person, no distress. VITAL SIGNS: Temperature 98.1, pulse 80, respiratory rate 18, blood pressure 122/68 and pulse ox 99% on room air. HEENT: Head normocephalic, atraumatic. Eyes: Extraocular muscles are intact. Pupils are equal, round and reactive to light and accommodation. Ears: No lesions. Nose appeared normal. Throat: No exudate or erythema. Left ear surgery. NECK: Supple. No JVD, no carotid bruit. No lymphadenopathy or thyromegaly. LUNGS: Mild wheeze expiratory. Percussion note normal. Chest symmetrical. HEART: S1, S2 distant, no S3. No murmur. No cyanosis or clubbing. No ascites. Pulses: Dorsalis pedis and posterior tibial pulses +1 to +2 bilaterally. ABDOMEN: Soft. Nontender. Bowel sounds active. No CVA tenderness. No mass felt. EXTREMITIES: Trace edema. Full range of motion of all extremities, equal. NEUROLOGIC: No focal deficit. Cranial nerves II through XII are grossly intact. No headache, no double vision or headache. SKIN: Not dry. Intact. Turgor - normal. LYMPHATIC: No palpable lymph nodes/no lymphedema. MUSCULOSKELETAL: Normal joints with no swelling. Muscle tone is normal. LABS: Chest x-ray COPD. EKG sinus rhythm. No acute changes. Cardiac markers are negative. COVID negative. EGFR more than 70.Hgb mild anemia, chronic. Potassium normal. U/A Showed 2+ leukocyte esterase, 2+ blood. ASSESSMENT: 1. Urinary tract infection 2. Weakness, tired feeling from chronic bronchitis 3. UTI 4. Heavy smoking 5. COPD 6. Recent surgery 7. Severe chronic lung disease with smoking 8. Hypothyroidism 9. Dyslipidemia 10.Depression with anxiety 11.Generalized osteoarthritis with low back pain being treated by Dr. Copeland with Pain Management 12.Recurrent UTI 13.Dehydration 14.Noncompliance of all aspects of medical care 15.Morbid obesity PLAN: 1. Admit the patient 2. Rocephin 1 gram Q 24 hours 3. Telemetry 4. IV fluids 5. Counseling for smoking done 6. Advised to increase the amount of fluid 7. Recurrent UTI strongly advised to go to urologist which she declined 8. Continue all the home medications including Remeron and Xanax 9. Advised to continue followup with Dr. Guo who is a psychiatrist CONDITION: Stable. TIME SPENT: More than 70 minutes. SUSAN
--- NOTE | 2021-05-04 13:03 | PN ---
DATE OF SERVICE: 04/30/2021 SUBJECTIVE: 75 year old white female hospitalized with UTI and electrolyte imbalance. The patient's condition has improved. She is afebrile. REVIEW OF SYSTEMS: CONSTITUTIONAL: No night sweats. No fatigue, malaise, lethargy. No fever or chills. HEENT: Eyes: No visual changes. No eye pain. No eye discharge. ENT: No runny nose. No epistaxis. No sinus pain. No sore throat. No odynophagia. No congestion. RESPIRATORY: No cough, no congestion. No hemoptysis. No shortness of breath. CARDIOVASCULAR: No angina symptoms. No CHF symptoms. No atypical chest pain for CAD. No palpitations. No PND. No orthopnea. GASTROINTESTINAL: No abdominal pain. No nausea or vomiting. No diarrhea or constipation. No hematemesis. No hematochezia. GENITOURINARY: No urgency. No frequency. No dysuria. No hematuria. No obstructive symptoms. No discharge. No pain. No significant abnormal bleeding. MUSCULOSKELETAL: No musculoskeletal pain; no joint swelling. NEUROLOGICAL: No headache. No neck pain. No syncope. No seizures. No dizziness. PSYCHIATRIC: Not anxious. No depression. No suicidal thoughts. No homicidal thoughts. SKIN: No rash. No lesions. No wounds. ENDOCRINE: No unexplained weight loss. No weight gain. HEMATOLOGIC/LYMPHATIC: No anemia. No purpura. No petechiae. No prolonged or excessive bleeding. No palpable lymph nodes. PHYSICAL EXAMINATION: VITAL SIGNS: Temperature 98, pulse 80, respiratory rate 17, blood pressure 110/70 and pulse ox 98% on room air. HEENT: Head normocephalic, atraumatic. Eyes: Extraocular muscles are intact. Pupils are equal, round and reactive to light and accommodation. Ears: No lesions. Nose appeared normal. Throat: No exudate or erythema. NECK: Supple. No JVD, no carotid bruit. No lymphadenopathy or thyromegaly. LUNGS: Decreased breath sounds with mild expiratory wheeze. Percussion note normal. Chest symmetrical. HEART: S1, S2 distant, no S3. No murmurs. No cyanosis or clubbing. No ascites. Pulses: Dorsalis pedis and posterior tibial pulses +1 to +2 bilaterally. ABDOMEN: Soft. Nontender. Bowel sounds active. No CVA tenderness. No mass felt. EXTREMITIES: No edema. Full range of motion of all extremities, equal. NEUROLOGIC: No focal deficit. Cranial nerves II through XII are grossly intact. No headache. No double vision. SKIN: Not dry. Intact. Turgor - normal. LYMPHATIC: No palpable lymph nodes/no lymphedema. MUSCULOSKELETAL: Normal joints with no swelling. Muscle tone is normal. LABS: More or less stable with yesterdays hgb 11.3, hct 33, WBC 9,600 normal differential, yesterday creatinine 0.7, BUN 14, potassium 4.3 ASSESSMENT: 1. UTI seems to be resolving 2. Electrolyte imbalance resolved 3. Dehydration seems to have resolved 4. The patient is hard of hearing, had cochlear transplant, left side. a couple weeks ago recovering from it. PLAN: 1. Continue antibiotics 2. The patient had e-coli and is going to be referred to urologist for recurrent UTI 3. Counseling for smoking done. TIME SPENT: More than 30 minutes. Plan and coordination of the patient's care discussed in the presence of nurse. SUSAN
== END 2021-05-01 13:44 | disposition home or self-care (01) | DRG 690 ==
LOC: ED 14:43 → MEDSURG A 19:56
PROVIDERS: ADMIT Internal Medicine; ATTEND Internal Medicine
DX: N39.0 Urinary tract infection, site not specified; M46.96 Unspecified inflammatory spondylopathy, lumbar region; J44.9 Chronic obstructive pulmonary disease, unspecified; Z68.38 Body mass index [BMI] 38.0-38.9, adult; Z87.440 Personal history of urinary (tract) infections; I10 Essential (primary) hypertension; K21.9 Gastro-esophageal reflux disease without esophagitis; I50.1 Left ventricular failure, unspecified; E87.1 Hypo-osmolality and hyponatremia; Z20.822 Contact with and (suspected) exposure to COVID-19; B96.20 Unspecified Escherichia coli [E. coli] as the cause of diseases classified elsewhere; M16.12 Unilateral primary osteoarthritis, left hip; Z99.81 Dependence on supplemental oxygen; E66.9 Obesity, unspecified; E86.0 Dehydration; E03.9 Hypothyroidism, unspecified

== ENCOUNTER 2021-05-27 11:59 | Inpatient (IN) ==
--- NOTE | 2021-05-27 13:02 | DI ---
EXAM: Frontal view of the chest. HISTORY: Cough. COMPARISON: Chest radiograph 04/28/2021. FINDINGS: Patient is rotated to the right. Normal heart size. Calcific atherosclerosis of the aorta. No acute consolidation. No visible effusion or pneumothorax. No acute osseous abnormality. IMPRESSION: 1. No acute abnormality. 2. Calcific atherosclerosis.
[2021-05-27 13:21] LABS: BASOPHILS % (AUTO) 0.5 % (0.0-3.0); EOSINOPHILS # (AUTO) 0.2 K/ul (0.0-0.7); EOSINOPHILS % (AUTO) 2.5 % (0.0-7.0); HEMATOCRIT 34.2 % (37.0-47.0); HEMOGLOBIN 12.1 g/dl (12.0-16.0); IMMATURE GRANULOCYTE # (AUTO) 0.1 (0.0-1.0); IMMATURE GRANULOCYTE % (AUTO) 0.8 % (0.0-5.0); LYMPHOCYTES # (AUTO) 1.8 K/uL (0.60-3.4); LYMPHOCYTES % (AUTO) 23.5 (10.0-50.0); MEAN CORPUSCULAR HEMOGLOBIN 31.4 pg (27.0-31.0); MEAN CORPUSCULAR HGB CONC 35.4 (31.8-35.4); MEAN CORPUSCULAR VOLUME 88.8 fl (81.0-99.0); MONOCYTES # (AUTO) 0.6 K/uL (0.4-2.0); MONOCYTES % (AUTO) 7.4 (0-10); NEUTROPHILS % (AUTO) 65.3 % (42.2-75.2); PLATELET COUNT 259 10^3/uL (140-440); RDW COEFFICIENT OF VARIATION 12.6 % (11.6-14.8); RED BLOOD COUNT 3.85 10^6/ul (4.20-5.40); WHITE BLOOD COUNT 7.61 K/ul (4.6-10.2)
[2021-05-27 13:31] LABS: ABG O2 HGB 86.7 % (95-100); ABG PH 7.46 (7.35-7.45); BEecf 5.4 (-2.0-3.0); COHb 7.3 (0.5-1.5); HCO3 29.2 (21-28); MetHb 0.9 (0-1.5); TCO2 30.5 (19-24); tHb 12.2 g/dl (11.7-17.4)
[2021-05-27 13:37] LABS: ALANINE AMINOTRANSFERASE 14.1 U/L (0-35); ALBUMIN 4.19 g/dL (3.5-5.0); ALKALINE PHOSPHATASE 98.4 U/L (53-141); ASPARTATE AMINO TRANSFERASE 19.4 U/L (14-36); BILIRUBIN,TOTAL 0.48 mg/dL (0.2-1.3); CALCIUM 9.44 mg/dL (8.4-10.2); CHLORIDE 93.5 mmol/L (98-107); CREATININE 0.68 mg/dL (0.60-1.30); POTASSIUM 4.25 mmol/L (3.5-5.1); TOTAL PROTEIN 6.96 g/dL (6.3-8.2)
[2021-05-27 13:46] LABS: BORDETELLA PARAPERTUSSIS (PCR) NOT DETECTED (NOT DETECT); BORDETELLA PERTUSSIS (PCR) NOT DETECTED (NOT DETECT); CHLAMYDIA PNEUMONIAE (PCR) NOT DETECTED (NOT DETECT); CORONAVIRUS 229E (PCR) NOT DETECTED (NOT DETECT); CORONAVIRUS HKU1 (PCR) NOT DETECTED (NOT DETECT); CORONAVIRUS NL63 (PCR) NOT DETECTED (NOT DETECT); CORONAVIRUS OC43 (PCR) NOT DETECTED (NOT DETECT); HUMAN METAPNEUMOVIRUS (PCR) NOT DETECTED (NOT DETECT); HUMAN RHINOVIRUS/ENTEROV (PCR) NOT DETECTED (NOT DETECT); INFLUENZA B (PCR) NOT DETECTED (NOT DETECT); MYCOPLASMA PNEUMONIAE (PCR) NOT DETECTED (NOT DETECT); PARAINFLUENZA VIRUS 1 (PCR) NOT DETECTED (NOT DETECT); PARAINFLUENZA VIRUS 2 (PCR) NOT DETECTED (NOT DETECT); PARAINFLUENZA VIRUS 3 (PCR) NOT DETECTED (NOT DETECT); PARAINFLUENZA VIRUS 4 (PCR) NOT DETECTED (NOT DETECT); RESPIRATORY SYNCYTIAL V (PCR) NOT DETECTED (NOT DETECT); SARS_COV_2 (PCR) NOT DETECTED (NOT DETECT)
[2021-05-27 14:05] LABS: TROPONIN I < 0.012 ng/ml (0.0000-0.120)
[2021-05-27 14:33] LABS: ADENOVIRUS (PCR) NOT DETECTED (NOT DETECT)
[2021-05-27] MEDS ORDERED: XANAX PO ONE (15:15)
[2021-05-27] MEDS ORDERED: PERCOCET 7.5-325 PO ONE (15:22)
[2021-05-27] MEDS ORDERED: ZANAFLEX PO PRN (15:46)
[2021-05-27] MEDS: ROCEPHIN 1 GM/50 ML D5W 1 GM/50 ML BAG IV SCH (15:53)
[2021-05-27 15:56] LABS: BILIRUBIN,URINE Negative (NEGATIVE); CLARITY,URINE Cloudy (CLEAR); COLOR,URINE Yellow (YELLOW); GLUCOSE, URINE (UA) Negative (NEGATIVE); KETONES,URINE Negative (NEGATIVE); LEUKOCYTE ESTERASE ,URINE 2+ (NEGATIVE); NITRITE,URINE Positive (NEGATIVE); PROTEIN,URINE Negative (NEGATIVE); URINE, BLOOD Trace-intact (NEGATIVE); UROBILINOGEN,URINE 0.2 (0.2)
[2021-05-27 15:59] LABS: BACTERIA,URINE 2+ (NOT PRESENT); SQUAMOUS EPITHELIAL CELL,UR NOT PRESENT (0-5); URINE WBC, MICROSCOPIC 50-100 (0-2)
--- NOTE | 2021-05-27 16:01 | ED.PDOC ---
General ED Provider: Dr. ANNEMARIE STANFORD Chief Complaint: Respiratory Complaint Stated Complaint: Cough, SOA, maybe fever, no chest pain. Hx COPD. Nebulizer at home. O2 for use at hs prn. Time Seen by Provider: 05/27/21 12:35 Mode of Arrival: Wheelchair Information Source: Patient Exam Limitations: No limitations Primary Care Provider: SHIRA DIAZ Nursing and Triage Documentation Reviewed and Agree: Yes Does patient meet sepsis criteria?: No System Inflammatory Response Syndrome: Not Applicable Sepsis Protocol: For patient's 13 years and over: Temp is 96.8 and below OR 101 and greater Pulse >90 BPM Resp >20/minute Acutely Altered Mental Status Are patient's symptoms suggestive of a new infection, such as: -Pneumonia -Skin, Soft Tissue -Endocarditis -UTI -Bone, Joint Infection -Implantable Device -Acute Abdominal Infection -Wound Infection -Meningitis -Blood Stream Catheter Infection -Unknown Respiratory Complaint Exam Shortness of Air Complaint/Exam Onset/Duration: 2 d. Symptoms Are: Still present Timing: Constant Initial Severity: Mild Current Severity: Moderate Character: Reports Dyspnea at rest and Dyspnea on exertion Aggravating: Reports Movement and Smoke exposure Alleviating: Reports Bronchodilators Associated Signs and Symptoms: Reports Cough, Wheezing and Labored breathing; Denies Chest pain, Diaphoresis, Calf swelling or Edema Related History: Reports Similar episode History of Healthcare-Acquired Pneumonia: No Pulmonary Embolism Risk Factors: Reports Smoking Cardiac Risk Factors: Reports Smoking Pseudomonas Risk Factors: Reports None Tuberculosis Risk Factors: Reports None Home Oxygen Use: Yes (at hs) Recent Stress Test: No Recent Echo/LV Function: No Respiratory Distress: Moderate Stridor Present: No Tracheal Deviation: No Accessory Muscle Use: No Retractions: Not Present Diminished Breath Sounds: Yes Prolonged Expiratory Phase: Yes Unable to Speak Full Sentences: No Fatigue: Yes Leg Swelling: No Katy's Sign Present: No Grunting Respirations: No Kussmaul Respirations: No Differential Diagnoses: Pulmonary Edema, COPD Exacerbation, Pneumonia and Bronchitis Review of Systems Review Of Systems Constitutional: Reports No symptoms Eyes: Reports No symptoms Ears, Nose, Mouth, Throat: Reports No symptoms Respiratory: Reports Cough, Short of air and Wheezing Cardiac: Reports No symptoms GI: Reports No symptoms : Reports No symptoms Musculoskeletal: Reports No symptoms Skin: Reports No symptoms Neurological: Reports No symptoms Hematologic/Lymphatic: Reports No symptoms All Other Systems: Reviewed and Negative [facility] Medical History Arthritis Chronic back pain COPD (chronic obstructive pulmonary disease) Diabetes Elevated cholesterol Hypertension Sensorineural hearing loss (SNHL) of both ears Family History Other Family history unknown Social History (Updated 05/27/21 @ 16:47 by ALEX LOPEZ RN) Smoking and tobacco status: Current every day smoker Tobacco type: cigarettes Smoking packs per day: 0.5 Smoking cigarettes per day: 10.0 Years smoked: 60 Smoking pack-years: 30.00 History of recent travel: No Surgical History Status post cholecystectomy Status post hysterectomy Female Reproductive History Menstrual Hx Hysterectomy: Yes Hx Tubal Ligation: No Physical Exam Physical Exam Appearance: Reports Ill-appearing Ill-appearing: Moderate Pain Distress: None Eyes: Reports GUIDO ENT: Reports Oropharynx normal Neck: Supple Respiratory: Reports Airway patent, Breath sounds diminished, Rhonchi and Wheezes Cardiovascular: Reports RRR GI/: Reports Soft Musculoskeletal: Reports Normal strength and ROM intact Skin: Reports Warm and Dry Neurological: Reports Sensation intact and Motor intact Psychiatric: Reports Affect appropriate and Mood appropriate Interpretation EKG Interpretation Time of EKG #1: 13:10 Rate: Normal Rhythm: Sinus [place]: NL ST Segment: Normal Interpretation: WNL Physician Notification Case Discussed Physician Notified: Dr. Diaz Comments: Admit to hospitalist Critical Care Note Critical Care Note Total Critical Care Time (mins): 0 Course Course Hematology/Chemistry: 05/27/21 13:17 05/27/21 13:17 Orders, Labs, Meds: Lab Review 05/27/21 05/27/21 05/27/21 13:17 13:17 13:17 WBC 7.61 RBC 3.85 L Hgb 12.1 Hct 34.2 L MCV 88.8 MCH 31.4 H MCHC 35.4 RDW Coeff of [place] 12.6 Plt Count 259 Immature Gran % (Auto) 0.8 Neut % (Auto) 65.3 Lymph % (Auto) 23.5 [place] % (Auto) 7.4 Eos % (Auto) 2.5 Baso % (Auto) 0.5 Neut # (Auto) 5.0 Lymph # (Auto) 1.8 [place] # (Auto) 0.6 Eos # (Auto) 0.2 Baso # (Auto) 0.0 Immature Gran # (Auto) 0.1 Puncture Site Base Excess O2 Saturation ABG pH ABG pCO2 ABG pO2 ABG HCO3 ABG Total CO2 Nemesio Test Hemoglobin Oxyhemoglobin Carboxyhemoglobin Total Hemoglobin O2 Delivery Device FiO2 % Sodium 131.0 L Potassium 4.25 Chloride 93.5 L Carbon Dioxide 31.0 H Anion Gap 10.75 BUN 11.0 Creatinine 0.68 Estimated GFR (MDRD) 85.00 BUN/Creatinine Ratio 16.17 Glucose 171.0 H Calcium 9.44 Total Bilirubin 0.48 AST 19.4 ALT 14.1 Alkaline Phosphatase 98.4 Troponin I < 0.012 NT-Pro-B Natriuret Pep 268.000 H Total Protein 6.96 Albumin 4.19 Globulin 2.77 Albumin/Globulin Ratio 1.51 Adenovirus (PCR) B. pertussis DNA (PCR) B.parapertussis DNA PCR C. pneumoniae DNA (PCR) Coronavirus OC43 (PCR) Coronavirus HKU1 (PCR) Coronavirus 229E (PCR) Coronavirus NL63 (PCR) Human Metapneumovir PCR Influenza Type A (PCR) Influenza B (RT-PCR) M. pneumoniae (PCR) Parainfluenza 1 (PCR) Parainfluenza 2 (PCR) Parainfluenza 3 (PCR) Parainfluenza 4 (PCR) RSV (PCR) Entero/Rhino (PCR) SARS-CoV-2 (PCR) 05/27/21 05/27/21 13:21 13:40 WBC RBC Hgb Hct MCV MCH MCHC RDW Coeff of [place] Plt Count Immature Gran % (Auto) Neut % (Auto) Lymph % (Auto) [place] % (Auto) Eos % (Auto) Baso % (Auto) Neut # (Auto) Lymph # (Auto) [place] # (Auto) Eos # (Auto) Baso # (Auto) Immature Gran # (Auto) Puncture Site Rrad Base Excess 5.4 H O2 Saturation 90.0 L ABG pH 7.46 H ABG pCO2 41.0 ABG pO2 55.0 L* ABG HCO3 29.2 H ABG Total CO2 30.5 H [place] Test + Hemoglobin 0.9 Oxyhemoglobin 86.7 L Carboxyhemoglobin 7.3 H Total Hemoglobin 12.2 O2 Delivery Device Ra FiO2 % 21.0 Sodium Potassium Chloride Carbon Dioxide Anion Gap BUN Creatinine Estimated GFR (MDRD) BUN/Creatinine Ratio Glucose Calcium Total Bilirubin AST ALT Alkaline Phosphatase Troponin I NT-Pro-B Natriuret Pep Total Protein Albumin Globulin Albumin/Globulin Ratio Adenovirus (PCR) Not detected B. pertussis DNA (PCR) Not detected B.parapertussis DNA PCR Not detected C. pneumoniae DNA (PCR) Not detected Coronavirus OC43 (PCR) Not detected Coronavirus HKU1 (PCR) Not detected Coronavirus 229E (PCR) Not detected Coronavirus NL63 (PCR) Not detected Human Metapneumovir PCR Not detected Influenza Type A (PCR) Not detected Influenza B (RT-PCR) Not detected M. pneumoniae (PCR) Not detected Parainfluenza 1 (PCR) Not detected Parainfluenza 2 (PCR) Not detected Parainfluenza 3 (PCR) Not detected Parainfluenza 4 (PCR) Not detected RSV (PCR) Not detected Entero/Rhino (PCR) Not detected SARS-CoV-2 (PCR) Not detected Orders Category Date Time Status ADMIT PATIENT INPATIENT .TO MEDS[facility]G (NON-MONITORED ADMISSION 05/27/21 15:16 Active BED) ABG DRAW REQUEST Stat CARDIO 05/27/21 13:06 Completed EKG-(ED ONLY) Stat CARDIO 05/27/21 13:07 Completed OXYGEN Routine CARDIO 05/27/21 15:18 Active ACTIVITY .Up With Assistance CARE 05/27/21 15:17 Active INTAKE & OUTPUT Q8HR CARE 05/27/21 15:17 Active IP: INSERT SALINE LOCK ONCE CARE 05/27/21 15:17 Active VITAL SIGNS Q8HR CARE 05/27/21 15:17 Active OXYGEN [ED APPLY O2] .ONCE EMERGENCY 05/27/21 13:36 Active ABG COOX Stat LAB 05/27/21 13:21 Completed CBC W/ AUTO DIFF Stat LAB 05/27/21 13:17 Completed COMPREHENSIVE METABOLIC PANEL Stat LAB 05/27/21 13:17 Completed NT-PROBNP Stat LAB 05/27/21 13:17 Completed RESPIRATORY PANEL 2.1 (PCR) Stat LAB 05/27/21 13:40 Completed TROPONIN I Stat LAB 05/27/21 13:17 Completed URINALYSIS C & S IF INDICATED Stat LAB 05/27/21 15:50 Completed Alprazolam [Xanax] MEDS 05/27/21 15:15 Discontinued 0.5 mg PO ONCE ONE Azithromycin [Zithromax] MEDS 05/27/21 15:30 Active 500 mg PO DAILY Ceftriaxone/D5w 1 gm Premix [Rocephin 1 gm/50 ml D5w] MEDS 05/27/21 15:30 Active 1 gm in 50 ml IV DAILY Enoxaparin Sodium [Lovenox] MEDS 05/28/21 09:00 Active 30 mg SUBCUT DAILY Methylprednisolone Sod Succ/Pf [Solu-Medrol 40 mg] MEDS 05/27/21 15:30 Active 40 mg IVP Q8HR Oxycodone-Acetaminophe 7.5-325 [Percocet 7.5-325] MEDS 05/27/21 15:22 Discontinued 1 tab PO ONCE ONE RESUSCITATION STATUS Routine OTHERS 05/27/21 15:17 Completed CHEST, 1V AP ONLY Stat RADS 05/27/21 12:36 Completed Medications Generic Name Dose Route Start Last Admin Trade Name Freq PRN Reason Stop Dose Admin Albuterol Sulfate 2 puff 05/27/21 20:00 05/27/21 20:30 Albuterol Sulfate (Ventolin Hfa) 18 Gm 1 Puff With Spacer IH 2 puff RTQID NAMAN Administration Albuterol Sulfate 2 puff 05/27/21 17:39 Albuterol Sulfate (Ventolin Hfa) 18 Gm 1 Puff With Spacer IH Q4H PRN Wheezing Alprazolam 0.5 mg 05/27/21 15:46 05/27/21 21:25 Alprazolam 0.5 Mg Tablet PO 0.5 mg QID PRN Administration Anxiety Aspirin 81 mg 05/27/21 21:00 05/27/21 21:25 Aspirin 81 Mg Tablet. PO 81 mg BEDTIME NAMAN Administration Azithromycin 500 mg 05/27/21 15:30 05/27/21 17:32 Azithromycin 250 Mg Tablet PO 05/30/21 08:59 500 mg DAILY NAMAN Administration Diltiazem HCl 60 mg 05/27/21 21:00 05/27/21 21:25 Diltiazem Hcl 60 Mg Tablet PO 60 mg BID NAMAN Administration Enoxaparin Sodium 30 mg 05/28/21 09:00 Enoxaparin Sodium 30 Mg/0.3 Ml Syr SUBCUT DAILY NAMAN CEFTRIAXONE/D5W 1 GM PREMIX 1 gm in 50 mls @ 75 mls/hr 05/27/21 15:30 05/27/21 15:53 Rocephin 1 Gm/50 Ml D5w IV 05/30/21 15:29 75 mls/hr DAILY NAMAN Administration Ipratropium [place] 2 puff 05/27/21 20:00 05/27/21 20:30 Ipratropium [place] 12.9 Gm Hfa Inhaler Per Puff With Spacer IH 2 puff RTQID NAMAN Administration Levothyroxine Sodium 50 mcg 05/28/21 06:30 Levothyroxine Sodium 50 Mcg Tablet PO QDAC NAMAN Metformin HCl 500 mg 05/27/21 17:00 05/27/21 17:32 Metformin Hcl 500 Mg Tablet PO 500 mg BIDWM NAMAN Administration Methylprednisolone Sodium Succinate 40 mg 05/27/21 15:30 05/27/21 20:30 Methylprednisolone Sod Succ/Pf 40 Mg/Ml Vial IVP 40 mg Q8HR NAMAN Administration Mirtazapine 15 mg 05/27/21 21:00 05/27/21 21:25 Mirtazapine 15 Mg Tablet PO 15 mg BEDTIME NAMAN Administration Oxycodone/Acetaminophen 1 tab 05/27/21 15:46 05/27/21 21:25 Oxycodone/Acetaminophen 7.5/325 Mg Tablet PO 1 tab QID PRN Administration Pain Pantoprazole Sodium 40 mg 05/28/21 06:30 Pantoprazole Sodium 40 Mg Tablet. PO QDAC NAMAN Sodium Chloride 1 syr 05/27/21 21:00 05/27/21 21:28 0.9% Sodium Chloride 10 Ml Disp.Syrin IVF 1 syr Q8HR NAMAN Administration Tizanidine HCl 4 mg 05/27/21 15:46 Tizanidine Hcl 4 Mg Tablet PO Q12HR PRN muscle spasm Discontinued Medications Generic Name Dose Route Start Last Admin Trade Name Freq PRN Reason Stop Dose Admin Alprazolam 0.5 mg 05/27/21 15:15 05/27/21 15:21 Alprazolam 0.5 Mg Tablet PO 05/27/21 15:16 0.5 mg ONCE ONE Administration Oxycodone/Acetaminophen 1 tab 05/27/21 15:22 05/27/21 15:30 Oxycodone/Acetaminophen 7.5/325 Mg Tablet PO 05/27/21 15:23 1 tab ONCE ONE Administration Vital Signs: Temp Pulse Resp BP Pulse Ox 05/27/21 11:59 98.1 F 104 H 20 130/75 94 L Discharge Plan Discharge Patient Disposition: ADMITTED INPATIENT Discharge Problem: Acute exacerbation of chronic obstructive pulmonary disease ED Provider: ANNEMARIE STANFORD Condition: Stable Physician Progress Note: [Admit for COPD exac. Dr. Diaz out of town. ]
[2021-05-27 16:45] VITALS: BMI 38.1
[2021-05-27] MEDS: ZITHROMAX PO SCH (17:32)
[2021-05-27] MEDS: GLUCOPHAGE PO SCH (17:32)
[2021-05-27] MEDS: SOLU-MEDROL 40 MG IVP SCH ×2 (17:33→20:30)
[2021-05-27] MEDS ORDERED: DUONEB NEB SCH (18:00)
[2021-05-27] MEDS: ATROVENT HFA INHALER (PER PUFF-WITH SPACER) IH SCH (20:30)
[2021-05-27] MEDS: VENTOLIN HFA (PER PUFF-WITH SPACER) IH SCH (20:30)
[2021-05-27] MEDS ORDERED: DILTIAZEM HCL 60 MG PO SCH (21:00)
[2021-05-27] MEDS: PERCOCET 7.5-325 PO PRN (21:25)
[2021-05-27] MEDS: CARDIZEM PO SCH (21:25)
[2021-05-27] MEDS: XANAX PO PRN (21:25)
[2021-05-27] MEDS: ASPIRIN EC PO SCH (21:25)
[2021-05-27] MEDS: REMERON PO SCH (21:25)
[2021-05-28] MEDS: SOLU-MEDROL 40 MG IVP SCH ×3 (04:32→20:49)
[2021-05-28] MEDS: ATROVENT HFA INHALER (PER PUFF-WITH SPACER) IH SCH ×4 (04:45→21:00)
[2021-05-28] MEDS: VENTOLIN HFA (PER PUFF-WITH SPACER) IH SCH ×4 (04:45→21:00)
[2021-05-28 05:24] LABS: BASOPHILS % (AUTO) 0.4 % (0.0-3.0); HEMATOCRIT 36.3 % (37.0-47.0); HEMOGLOBIN 12.8 g/dl (12.0-16.0); IMMATURE GRANULOCYTE # (AUTO) 0.1 (0.0-1.0); IMMATURE GRANULOCYTE % (AUTO) 1.8 % (0.0-5.0); LYMPHOCYTES # (AUTO) 0.9 K/uL (0.60-3.4); LYMPHOCYTES % (AUTO) 15.7 (10.0-50.0); MEAN CORPUSCULAR HGB CONC 35.3 (31.8-35.4); MEAN CORPUSCULAR VOLUME 87.9 fl (81.0-99.0); MONOCYTES # (AUTO) 0.1 K/uL (0.4-2.0); MONOCYTES % (AUTO) 1.1 (0-10); NEUTROPHILS # (AUTO) 4.6 K/ul (2.0-6.9); PLATELET COUNT 271 10^3/uL (140-440); RDW COEFFICIENT OF VARIATION 12.3 % (11.6-14.8); RED BLOOD COUNT 4.13 10^6/ul (4.20-5.40); WHITE BLOOD COUNT 5.66 K/ul (4.6-10.2)
[2021-05-28 05:49] LABS: ALBUMIN 4.2 g/dL (3.5-5.0); BILIRUBIN,TOTAL 0.6 mg/dL (0.2-1.3); CALCIUM 9.4 mg/dL (8.4-10.2); CREATININE 0.6 mg/dL (0.60-1.30); POTASSIUM 4.6 mmol/L (3.5-5.1); TOTAL PROTEIN 7.2 g/dL (6.3-8.2)
[2021-05-28] MEDS: SYNTHROID PO SCH (05:50)
[2021-05-28] MEDS: PROTONIX PO SCH (05:50)
[2021-05-28] MEDS: PERCOCET 7.5-325 PO PRN ×3 (06:29→20:46)
[2021-05-28] MEDS: ROCEPHIN 1 GM/50 ML D5W 1 GM/50 ML BAG IV SCH (09:12)
[2021-05-28] MEDS: LOVENOX SUBCUT SCH (09:13)
[2021-05-28] MEDS: ZITHROMAX PO SCH (09:13)
[2021-05-28] MEDS: CARDIZEM PO SCH ×2 (09:13→20:46)
[2021-05-28] MEDS: GLUCOPHAGE PO SCH ×2 (09:13→16:15)
[2021-05-28] MEDS: VENTOLIN HFA (PER PUFF-WITH SPACER) IH PRN ×2 (10:11→14:18)
--- NOTE | 2021-05-28 19:51 | PCM.PROG ---
Date Seen by Provider: 05/28/21 Time Seen by Provider: 10:00 Subjective: States she is feeling better. Eval in ER yesterday for Cough, SOB, fever, Denies chest pain. Hx COPD. Uses Neb at home. O2 for use at hs prn. Objective: Vitals: T=98.2 F, P=105, R=24, MZ=700/80, SPO2=94 HEENT: Clear Neck: Supple Lungs: CTA CVS: Normal Abdomen: soft non tender Extremities: Minimal edema Neurological: No focal abnormalities Skin: neg findings Lab/Tests/Diagnostic Imaging: see chart. (1) COPD (chronic obstructive pulmonary disease): Status: Inactive Code(s): J44.9 - Chronic obstructive pulmonary disease, unspecified SNOMED Code(s): 87979868 Plan: Continue present therapy Recheck lab in AM
[2021-05-28] MEDS: ASPIRIN EC PO SCH (20:45)
[2021-05-28] MEDS: XANAX PO PRN (20:45)
[2021-05-28] MEDS: REMERON PO SCH (20:46)
[2021-05-28 21:02] LABS: ABG O2 HGB 92.1 % (95-100); ABG PH 7.39 (7.35-7.45); BEecf -2.6 (-2.0-3.0); COHb 2.9 (0.5-1.5); HCO3 22.4 (21-28); MetHb 0.7 (0-1.5); TCO2 23.5 (19-24); sO2 91.8 % (94-98); tHb 12.4 g/dl (11.7-17.4)
[2021-05-29] MEDS: VENTOLIN HFA (PER PUFF-WITH SPACER) IH SCH ×2 (04:40→10:03)
[2021-05-29] MEDS: ATROVENT HFA INHALER (PER PUFF-WITH SPACER) IH SCH ×2 (04:40→10:03)
[2021-05-29 05:02] VITALS: BP 146/79; TEMP 97.8
[2021-05-29] MEDS: SOLU-MEDROL 40 MG IVP SCH (05:02)
[2021-05-29 05:23] LABS: BASOPHILS % (AUTO) 0.3 % (0.0-3.0); EOSINOPHILS % (AUTO) 0.1 % (0.0-7.0); HEMATOCRIT 34.5 % (37.0-47.0); IMMATURE GRANULOCYTE # (AUTO) 0.2 (0.0-1.0); IMMATURE GRANULOCYTE % (AUTO) 2.6 % (0.0-5.0); LYMPHOCYTES # (AUTO) 0.8 K/uL (0.60-3.4); LYMPHOCYTES % (AUTO) 11.2 (10.0-50.0); MEAN CORPUSCULAR HEMOGLOBIN 31.2 pg (27.0-31.0); MEAN CORPUSCULAR HGB CONC 34.8 (31.8-35.4); MEAN CORPUSCULAR VOLUME 89.6 fl (81.0-99.0); MONOCYTES # (AUTO) 0.2 K/uL (0.4-2.0); MONOCYTES % (AUTO) 2.6 (0-10); NEUTROPHILS # (AUTO) 5.7 K/ul (2.0-6.9); NEUTROPHILS % (AUTO) 83.2 % (42.2-75.2); PLATELET COUNT 277 10^3/uL (140-440); RDW COEFFICIENT OF VARIATION 12.5 % (11.6-14.8); RED BLOOD COUNT 3.85 10^6/ul (4.20-5.40)
[2021-05-29 05:38] LABS: ALANINE AMINOTRANSFERASE 16.9 U/L (0-35); ALBUMIN 4.33 g/dL (3.5-5.0); ALKALINE PHOSPHATASE 97.6 U/L (53-141); ASPARTATE AMINO TRANSFERASE 17.9 U/L (14-36); BILIRUBIN,TOTAL 0.43 mg/dL (0.2-1.3); BLOOD UREA NITROGEN 29.9 mg/dL (7-17); CALCIUM 9.94 mg/dL (8.4-10.2); CARBON DIOXIDE 26.2 mmol/L (22-30.0); CHLORIDE 103.7 mmol/L (98-107); CREATININE 0.74 mg/dL (0.60-1.30); POTASSIUM 4.71 mmol/L (3.5-5.1); SODIUM 138.3 mmol/L (134.5-145); TOTAL PROTEIN 7.16 g/dL (6.3-8.2)
[2021-05-29] MEDS: SYNTHROID PO SCH (05:52)
[2021-05-29] MEDS: PROTONIX PO SCH (05:52)
[2021-05-29] MEDS: XANAX PO PRN (05:59)
[2021-05-29] MEDS: PERCOCET 7.5-325 PO PRN (05:59)
[2021-05-29] MEDS ORDERED: HUMULIN R SUBCUT PRN (08:21)
[2021-05-29] MEDS: GLUCOPHAGE PO SCH (09:12)
[2021-05-29] MEDS: ZITHROMAX PO SCH (09:12)
[2021-05-29] MEDS: CARDIZEM PO SCH (09:12)
[2021-05-29] MEDS: LOVENOX SUBCUT SCH (09:13)
[2021-05-29] MEDS: ROCEPHIN 1 GM/50 ML D5W 1 GM/50 ML BAG IV SCH (09:17)
[2021-05-29] MEDS ORDERED: VENTOLIN HFA (PER PUFF-WITH SPACER) IH PRN (09:48)
--- NOTE | 2021-05-29 09:55 | PCM.DC ---
Final Diagnosis: COPD exacerbation UTI Steroid-induced hyperglycemia (1) COPD (chronic obstructive pulmonary disease): Status: Inactive Code(s): J44.9 - Chronic obstructive pulmonary disease, unspecified SNOMED Code(s): 63273823 Qualifiers: Chronic bronchitis type: simple Reason for Hospitalization: Moderate COPD exac. prompted admit. No pneumonia. Prognosis/Condition at Discharge: Good. Stable. Medications at Discharge: Ambulatory Orders Medication Instructions Recorded diltiazem HCl 60 mg 60 mg PO BID 08/29/18 capsule,extended release 12 hr aspirin 81 mg tablet,delayed 81 mg PO BEDTIME 04/13/19 release albuterol sulfate 90 mcg/actuation 2 puff INHALATION QID PRN 07/24/19 aerosol inhaler (ProAir HFA) alprazolam 0.5 mg tablet (Xanax) 0.5 mg PO QID PRN 02/14/20 levothyroxine 50 mcg tablet 50 mcg PO DAILY 08/25/20 (Synthroid) tizanidine 4 mg tablet (Zanaflex) 4 mg PO Q12HR PRN 08/25/20 metformin 500 mg tablet 500 mg PO BID 02/25/21 pantoprazole 40 mg tablet,delayed 40 mg PO QDAC 02/25/21 release (Protonix) mirtazapine 15 mg tablet (Remeron) 15 mg PO BEDTIME 04/28/21 oxycodone-acetaminophen 7.5 mg-325 1 tab PO QID PRN 05/27/21 mg tablet (Percocet) nitrofurantoin 50 mg capsule 50 mg PO QHS 05/28/21 fluconazole 200 mg tablet 200 mg PO DAILY PRN #7 tab 05/29/21 (Diflucan) levofloxacin 500 mg tablet 500 mg PO DAILY #7 tab 05/29/21 prednisone 20 mg tablet 20 mg PO DAILY 3 Days #3 tab 05/29/21 Lab/Diagnostics: Laboratory Tests 05/27/21 05/27/21 05/27/21 13:17 13:17 13:17 WBC 7.61 RBC 3.85 L Hgb 12.1 Hct 34.2 L MCV 88.8 MCH 31.4 H MCHC 35.4 RDW Coeff of Sharon 12.6 Plt Count 259 Immature Gran % (Auto) 0.8 Neut % (Auto) 65.3 Lymph % (Auto) 23.5 [place] % (Auto) 7.4 Eos % (Auto) 2.5 Baso % (Auto) 0.5 Neut # (Auto) 5.0 Lymph # (Auto) 1.8 [place] # (Auto) 0.6 Eos # (Auto) 0.2 Baso # (Auto) 0.0 Immature Gran # (Auto) 0.1 Puncture Site Base Excess O2 Saturation ABG pH ABG pCO2 ABG pO2 ABG HCO3 ABG Total CO2 Nemes[place] Test Hemoglobin Oxyhemoglobin Carboxyhemoglobin Total Hemoglobin O2 Delivery Device Oxygen Liter Flow FiO2 % Sodium 131.0 L Potassium 4.25 Chloride 93.5 L Carbon Dioxide 31.0 H Anion Gap 10.75 BUN 11.0 Creatinine 0.68 Estimated GFR (MDRD) 85.00 BUN/Creatinine Ratio 16.17 Glucose 171.0 H Calcium 9.44 Total Bilirubin 0.48 AST 19.4 ALT 14.1 Alkaline Phosphatase 98.4 Troponin I < 0.012 NT-Pro-B Natriuret Pep 268.000 H Total Protein 6.96 Albumin 4.19 Globulin 2.77 Albumin/Globulin Ratio 1.51 Urine Color Urine Clarity Urine pH Ur Specific [place] Urine Protein Urine Glucose (UA) Urine Ketones Urine Blood Urine Nitrite Urine Bilirubin Urine Urobilinogen Ur Leukocyte Esterase Urine Microscopic RBC Urine Microscopic WBC Ur Squamous Epith Cells Urine Bacteria Adenovirus (PCR) B. pertussis DNA (PCR) B.parapertussis DNA PCR C. pneumoniae DNA (PCR) Coronavirus OC43 (PCR) Coronavirus HKU1 (PCR) Coronavirus 229E (PCR) Coronavirus NL63 (PCR) Human Metapneumovir PCR Influenza Type A (PCR) Influenza B (RT-PCR) M. pneumoniae (PCR) Parainfluenza 1 (PCR) Parainfluenza 2 (PCR) Parainfluenza 3 (PCR) Parainfluenza 4 (PCR) RSV (PCR) Entero/Rhino (PCR) SARS-CoV-2 (PCR) 05/27/21 05/27/21 05/27/21 13:21 13:40 15:50 WBC RBC Hgb Hct MCV MCH MCHC RDW Coeff of Sharon Plt Count Immature Gran % (Auto) Neut % (Auto) Lymph % (Auto) [place] % (Auto) Eos % (Auto) Baso % (Auto) Neut # (Auto) Lymph # (Auto) [place] # (Auto) Eos # (Auto) Baso # (Auto) Immature Gran # (Auto) Puncture Site Rrad Base Excess 5.4 H O2 Saturation 90.0 L ABG pH 7.46 H ABG pCO2 41.0 ABG pO2 55.0 L* ABG HCO3 29.2 H ABG Total CO2 30.5 H Nemesio Test + Hemoglobin 0.9 Oxyhemoglobin 86.7 L Carboxyhemoglobin 7.3 H Total Hemoglobin 12.2 O2 Delivery Device Ra Oxygen Liter Flow FiO2 % 21.0 Sodium Potassium Chloride Carbon Dioxide Anion Gap BUN Creatinine Estimated GFR (MDRD) BUN/Creatinine Ratio Glucose Calcium Total Bilirubin AST ALT Alkaline Phosphatase Troponin I NT-Pro-B Natriuret Pep Total Protein Albumin Globulin Albumin/Globulin Ratio Urine Color Yellow Urine Clarity Cloudy Urine pH 7.0 Ur Specific [place] 1.015 Urine Protein Negative Urine Glucose (UA) Negative Urine Ketones Negative Urine Blood Trace-intact H Urine Nitrite Positive H Urine Bilirubin Negative Urine Urobilinogen 0.2 Ur Leukocyte Esterase 2+ H Urine Microscopic RBC 2-5 Urine Microscopic WBC 50-100 Ur Squamous Epith Cells Not present Urine Bacteria 2+ Adenovirus (PCR) Not detected B. pertussis DNA (PCR) Not detected B.parapertussis DNA PCR Not detected C. pneumoniae DNA (PCR) Not detected Coronavirus OC43 (PCR) Not detected Coronavirus HKU1 (PCR) Not detected Coronavirus 229E (PCR) Not detected Coronavirus NL63 (PCR) Not detected Human Metapneumovir PCR Not detected Influenza Type A (PCR) Not detected Influenza B (RT-PCR) Not detected M. pneumoniae (PCR) Not detected Parainfluenza 1 (PCR) Not detected Parainfluenza 2 (PCR) Not detected Parainfluenza 3 (PCR) Not detected Parainfluenza 4 (PCR) Not detected RSV (PCR) Not detected Entero/Rhino (PCR) Not detected SARS-CoV-2 (PCR) Not detected 05/28/21 05/28/21 05/28/21 05:05 05:05 20:55 WBC 5.66 RBC 4.13 L Hgb 12.8 Hct 36.3 L MCV 87.9 MCH 31.0 MCHC 35.3 RDW Coeff of Sharon 12.3 Plt Count 271 Immature Gran % (Auto) 1.8 Neut % (Auto) 81.0 H Lymph % (Auto) 15.7 [place] % (Auto) 1.1 Eos % (Auto) 0.0 Baso % (Auto) 0.4 Neut # (Auto) 4.6 Lymph # (Auto) 0.9 [place] # (Auto) 0.1 L Eos # (Auto) 0.0 Baso # (Auto) 0.0 Immature Gran # (Auto) 0.1 Puncture Site Lb Base Excess -2.6 L O2 Saturation 91.8 L ABG pH 7.39 ABG pCO2 37.0 ABG pO2 64.0 L ABG HCO3 22.4 ABG Total CO2 23.5 Nemesio Test + Hemoglobin 0.7 Oxyhemoglobin 92.1 L Carboxyhemoglobin 2.9 H Total Hemoglobin 12.4 O2 Delivery Device Cannula Oxygen Liter Flow 2.00 FiO2 % 28.0 Sodium 132.0 L Potassium 4.60 Chloride 97.0 L Carbon Dioxide 27.0 Anion Gap 12.60 BUN 19.0 H Creatinine 0.60 Estimated GFR (MDRD) 98.00 BUN/Creatinine Ratio 31.66 Glucose 244.0 H D Calcium 9.40 Total Bilirubin 0.60 AST 18.0 ALT 17.0 Alkaline Phosphatase 100.0 Troponin I NT-Pro-B Natriuret Pep Total Protein 7.20 Albumin 4.20 Globulin 3.00 Albumin/Globulin Ratio 1.40 Urine Color Urine Clarity Urine pH Ur Specific [place] Urine Protein Urine Glucose (UA) Urine Ketones Urine Blood Urine Nitrite Urine Bilirubin Urine Urobilinogen Ur Leukocyte Esterase Urine Microscopic RBC Urine Microscopic WBC Ur Squamous Epith Cells Urine Bacteria Adenovirus (PCR) B. pertussis DNA (PCR) B.parapertussis DNA PCR C. pneumoniae DNA (PCR) Coronavirus OC43 (PCR) Coronavirus HKU1 (PCR) Coronavirus 229E (PCR) Coronavirus NL63 (PCR) Human Metapneumovir PCR Influenza Type A (PCR) Influenza B (RT-PCR) M. pneumoniae (PCR) Parainfluenza 1 (PCR) Parainfluenza 2 (PCR) Parainfluenza 3 (PCR) Parainfluenza 4 (PCR) RSV (PCR) Entero/Rhino (PCR) SARS-CoV-2 (PCR) 05/29/21 05/29/21 05:00 05:00 WBC 6.90 RBC 3.85 L Hgb 12.0 Hct 34.5 L MCV 89.6 MCH 31.2 H MCHC 34.8 RDW Coeff of Sharon 12.5 Plt Count 277 Immature Gran % (Auto) 2.6 Neut % (Auto) 83.2 H Lymph % (Auto) 11.2 [place] % (Auto) 2.6 Eos % (Auto) 0.1 Baso % (Auto) 0.3 Neut # (Auto) 5.7 Lymph # (Auto) 0.8 [place] # (Auto) 0.2 L Eos # (Auto) 0.0 Baso # (Auto) 0.0 Immature Gran # (Auto) 0.2 Puncture Site Base Excess O2 Saturation ABG pH ABG pCO2 ABG pO2 ABG HCO3 ABG Total CO2 Nem[place] Test Hemoglobin Oxyhemoglobin Carboxyhemoglobin Total Hemoglobin O2 Delivery Device Oxygen Liter Flow FiO2 % Sodium 138.3 Potassium 4.71 Chloride 103.7 Carbon Dioxide 26.2 Anion Gap 13.11 BUN 29.9 H Creatinine 0.74 Estimated GFR (MDRD) 77.00 BUN/Creatinine Ratio 40.40 Glucose 330.0 H D Calcium 9.94 Total Bilirubin 0.43 AST 17.9 ALT 16.9 Alkaline Phosphatase 97.6 Troponin I NT-Pro-B Natriuret Pep Total Protein 7.16 Albumin 4.33 Globulin 2.83 Albumin/Globulin Ratio 1.53 Urine Color Urine Clarity Urine pH Ur Specific [place] Urine Protein Urine Glucose (UA) Urine Ketones Urine Blood Urine Nitrite Urine Bilirubin Urine Urobilinogen Ur Leukocyte Esterase Urine Microscopic RBC Urine Microscopic WBC Ur Squamous Epith Cells Urine Bacteria Adenovirus (PCR) B. pertussis DNA (PCR) B.parapertussis DNA PCR C. pneumoniae DNA (PCR) Coronavirus OC43 (PCR) Coronavirus HKU1 (PCR) Coronavirus 229E (PCR) Coronavirus NL63 (PCR) Human Metapneumovir PCR Influenza Type A (PCR) Influenza B (RT-PCR) M. pneumoniae (PCR) Parainfluenza 1 (PCR) Parainfluenza 2 (PCR) Parainfluenza 3 (PCR) Parainfluenza 4 (PCR) RSV (PCR) Entero/Rhino (PCR) SARS-CoV-2 (PCR) Signed Patient: CLAIRE LUNA Acct:[id number] Medical Record: [id number] : 1945 Loc: ED Room/Bed: Age/Sex: 75 / F ADM Status: REG ER Date of Service: 05/27/21 Ordering Physician: ANNEMARIE STANFORD MD Procedure(s): CHEST, 1V AP ONLY Report Number(s): [id number] Accession Number(s): [id number] cc: SHIRA DIAZ MD; ANNEMARIE STANFORD MD EXAM: Frontal view of the chest. HISTORY: Cough. COMPARISON: Chest radiograph 04/28/2021. FINDINGS: Patient is rotated to the right. Normal heart size. Calcific atherosclerosis of the aorta. No acute consolidation. No visible effusion or pneumothorax. No acute osseous abnormality. IMPRESSION: 1. No acute abnormality. 2. Calcific atherosclerosis. Follow-ups: Dr. Diaz next week. Discharge Disposition: Home Hospital Course: Admitted with COPD exacerbation requiring supplemental oxgyen for a few days. Tx with rocephin/zithromax and solumedrol with duoneb tx. Quickly improved and sat. 94% on RA on day of d/c with no wheezing. The steroids raised blood sugar, needed one shot of insulin. She can double her metformin at home as needed. Also, dx with UTI, pseudomonas sens. to quinolones. Plan: Continue home neb tx, she has oxygen for use prn as well. Levaquin for COPD and UTI. Few more days of steroids. Diflucan prn yeast infection. No smoking.
[2021-05-29] MEDS ORDERED: HUMULIN R SUBCUT ONE (10:00)
== END 2021-05-29 13:05 | disposition home or self-care (01) | DRG 192 ==
LOC: ED 11:59 → MEDSURG A 15:43
PROVIDERS: ADMIT Emergency Medicine; ATTEND Emergency Medicine
DX: F17.210 Nicotine dependence, cigarettes, uncomplicated; Z20.822 Contact with and (suspected) exposure to COVID-19; J44.1 Chronic obstructive pulmonary disease with (acute) exacerbation

== ENCOUNTER 2021-09-16 13:31 | Inpatient (IN) ==
--- NOTE | 2021-09-16 13:52 | ED.PDOC ---
General ED Provider: Dr. NEERAJ BROOKS MD Chief Complaint: Non-specific Complaint Stated Complaint: burning right side of body Time Seen by Provider: 09/16/21 13:50 Mode of Arrival: Wheelchair Information Source: Patient Exam Limitations: No limitations Primary Care Provider: SHIRA DIAZ Nursing and Triage Documentation Reviewed and Agree: Yes Does patient meet sepsis criteria?: No System Inflammatory Response Syndrome: Not Applicable Sepsis Protocol: For patient's 13 years and over: Temp is 96.8 and below OR 101 and greater Pulse >90 BPM Resp >20/minute Acutely Altered Mental Status Are patient's symptoms suggestive of a new infection, such as: -Pneumonia -Skin, Soft Tissue -Endocarditis -UTI -Bone, Joint Infection -Implantable Device -Acute Abdominal Infection -Wound Infection -Meningitis -Blood Stream Catheter Infection -Unknown Neurological Complaint Exam Neurological Deficit Complaint/Exam Patient Complains of: Reports Abnormal sensation (burning sensation right side of body) Symptom Onset Unknown: No Symptom Onset Date: 09/09/21 Onset: Gradual Symptoms Are: Still present Timing: Constant Episodes Lasting: Days Initial Severity: Mild Current Severity: Moderate Location: Reports RUE and RLE Character: Reports Paresthesia (burning sensation) Aggravating: Denies None, Fatigue, Stress, Hypertension or Exertion Alleviating: Reports OTC Meds (has not taken any medications for this) Associated Signs and Symptoms: Denies Confusion, Agitation, Responsiveness, LOC, Headache, Fever, Nuchal rigidity, Recent trauma, Remote trauma or Recent illness Related History: Denies Similar episode or Anticoagulant therapy CVA Risk Factors: Reports Diabetes and Hypertension SDH Risk Factors: Reports None Related Surgical History: Reports None Carotid Bruit Present: No Meningeal Signs Positive: No Focal Weakness: Present None Focal Sensory Loss: Present None Gait: Unable Nystagmus Present: No Gag Reflex Present: Yes Signs of Trauma: No Reasons for not prescribing IV t-PA: Warfarin therapy started, Pt non compliant/refused, Pt non compliant/general, Treatment refused by Pt, Medication Refused, Medical contraindication, Surgical contraindication, Palliative care, Specialist palliative tmt, Comfort measures, Comfort care management and Support Differential Diagnoses: Anxiety and Other (opiod withdrawal) Review of Systems Review Of Systems Constitutional: Reports Weakness Eyes: Reports No symptoms Ears, Nose, Mouth, Throat: Reports No symptoms Respiratory: Reports No symptoms Cardiac: Reports No symptoms GI: Reports No symptoms : Reports No symptoms Musculoskeletal: Reports No symptoms Skin: Reports No symptoms Neurological: Reports Other (burning sensation right side of body) Endocrine: Reports No symptoms Hematologic/Lymphatic: Reports No symptoms All Other Systems: Reviewed and Negative [facility] Medical History Arthritis Chronic back pain COPD (chronic obstructive pulmonary disease) Diabetes Elevated cholesterol Hypertension Sensorineural hearing loss (SNHL) of both ears Family History Other Family history unknown Social History Smoking and tobacco status: Current every day smoker Tobacco type: cigarettes Smoking packs per day: 0.5 Smoking cigarettes per day: 10.0 Years smoked: 60 Smoking pack-years: 30.00 History of recent travel: No Surgical History Status post cholecystectomy Status post hysterectomy Female Reproductive History Menstrual Hx Hysterectomy: Yes Hx Tubal Ligation: No Physical Exam Physical Exam Appearance: Reports Well-appearing, No pain distress, Well-nourished and Obese Ill-appearing: None Pain Distress: None Eyes: Reports GUIDO, EOMI and Conjunctiva clear ENT: Reports Nose normal and Oropharynx normal Neck: Supple Respiratory: Reports Airway patent, Breath sounds clear and Breath sounds equal Cardiovascular: Reports RRR, No rub and No murmur GI/: Reports Soft, Nontender, No masses and Bowel sounds normal Musculoskeletal: Reports ROM intact and No calf tenderness Skin: Reports Warm and Dry Neurological: Reports Sensation intact, Motor intact, Cranial nerves intact, Alert and Oriented Psychiatric: Reports Affect appropriate and Mood appropriate Re-Evaluation Re-Evaluation Time of Re-Evaluation: 14:48 Status: Improved Vital Signs Stable: Yes Pain Level: burning sensation improved Appearance: NAD Neuro: Alert and Oriented X3 Physician Notification Case Discussed Physician Notified: Dr Diaz Time of Notification: 14:49 Comments: Patient care discussed with Dr Diaz and patient will be admitted with hyponatremia. Critical Care Note Critical Care Note Total Critical Care Time (mins): 0 Course Course Hematology/Chemistry: 09/16/21 14:02 09/16/21 14:02 Orders, Labs, Meds: Lab Review 09/16/21 09/16/21 09/16/21 14:02 14:02 14:54 WBC 9.31 RBC 4.16 L Hgb 12.5 Hct 35.6 L MCV 85.6 MCH 30.0 MCHC 35.1 RDW Coeff of Sharon 12.5 Plt Count 247 Immature Gran % (Auto) 0.8 Neut % (Auto) 59.9 Lymph % (Auto) 30.2 [place] % (Auto) 7.6 Eos % (Auto) 1.2 Baso % (Auto) 0.3 Neut # (Auto) 5.6 Lymph # (Auto) 2.8 [place] # (Auto) 0.7 Eos # (Auto) 0.1 Baso # (Auto) 0.0 Immature Gran # (Auto) 0.1 Sodium 126.4 L Potassium 3.88 Chloride 94.5 L Carbon Dioxide 24.4 Anion Gap 11.38 BUN 17.1 H Creatinine 0.80 Estimated GFR (MDRD) 70.00 BUN/Creatinine Ratio 21.37 Glucose 169.5 H Calcium 9.46 Total Bilirubin 0.59 AST 17.6 ALT 16.8 Alkaline Phosphatase 91.3 Total Protein 6.90 Albumin 4.32 Globulin 2.58 Albumin/Globulin Ratio 1.67 Adenovirus (PCR) Not detected B. pertussis DNA (PCR) Not detected B.parapertussis DNA PCR Not detected C. pneumoniae DNA (PCR) Not detected Coronavirus OC43 (PCR) Not detected Coronavirus HKU1 (PCR) Not detected Coronavirus 229E (PCR) Not detected Coronavirus NL63 (PCR) Not detected Human Metapneumovir PCR Not detected Influenza Type A (PCR) Not detected Influenza B (RT-PCR) Not detected M. pneumoniae (PCR) Not detected Parainfluenza 1 (PCR) Not detected Parainfluenza 2 (PCR) Not detected Parainfluenza 3 (PCR) Not detected Parainfluenza 4 (PCR) Not detected RSV (PCR) Not detected Entero/Rhino (PCR) Not detected SARS-CoV-2 (PCR) Not detected Orders Category Date Time Status ADMIT PATIENT INPATIENT .TO [facility] (NON-MONITORED ADMISSION 09/16/21 14:54 Active BED) METERED DOSE INHALATION Routine CARDIO 09/16/21 15:09 Ordered OXYGEN Routine CARDIO 09/16/21 14:58 Ordered ACTIVITY .Up With Assistance CARE 09/16/21 14:54 Active CASE MANAGEMENT CONSULT ONCE CARE 09/16/21 14:57 Active GIVE HS SNACK 2100 CARE 09/16/21 14:58 Active INTAKE & OUTPUT Q8HR CARE 09/16/21 14:54 Active IP: INSERT SALINE LOCK ONCE CARE 09/16/21 14:54 Active VITAL SIGNS Q8HR CARE 09/16/21 14:54 Active ADA 1800 ROWDY. DIET DIETARY 09/16/21 Dinner Ordered HS SNACK DIETARY 09/16/21 Dinner Ordered CBC W/ AUTO DIFF DAILY@0600 LAB 09/17/21 06:00 Ordered CBC W/ AUTO DIFF DAILY@0600 LAB 09/18/21 06:00 Ordered CBC W/ AUTO DIFF Stat LAB 09/16/21 14:02 Completed CMP [COMPREHENSIVE METABOLIC PANEL] Stat LAB 09/16/21 14:02 Completed COMPREHENSIVE METABOLIC PANEL DAILY@0600 LAB 09/17/21 06:00 Ordered COMPREHENSIVE METABOLIC PANEL DAILY@0600 LAB 09/18/21 06:00 Ordered Albuterol Inhaler(with Spacer) [Ventolin Hfa (Per Puff- MEDS 09/16/21 15:09 Active with Spacer)] 2 puff IH QID PRN Alprazolam [Xanax] MEDS 09/16/21 15:09 Active 0.5 mg PO QID PRN Aspirin [Aspirin EC] MEDS 09/16/21 21:00 Active 81 mg PO BEDTIME Diltiazem HCl [Cardizem] MEDS 09/16/21 21:00 Active 60 mg PO BID Enoxaparin Sodium [Lovenox] MEDS 09/17/21 09:00 Active 40 mg SUBCUT DAILY Hydrocortisone Sod Succ/Pf [Solu-Cortef 100 mg] MEDS 09/16/21 15:45 Discontinued 100 mg IVP ONCE ONE Levothyroxine Sodium [Synthroid] MEDS 09/17/21 06:30 Active 50 mcg PO QDAC Metformin HCl [Glucophage] MEDS 09/16/21 17:00 Active 500 mg PO BIDWM Mirtazapine [Remeron] MEDS 09/16/21 21:00 Active 15 mg PO BEDTIME Oxycodone-Acetaminophe 7.5-325 [Percocet 7.5-325] MEDS 09/16/21 14:07 Discontinued 1 tab PO ONCE STA Oxycodone-Acetaminophe 7.5-325 [Percocet 7.5-325] MEDS 09/16/21 15:09 Active 1 tab PO QID PRN Pantoprazole Sodium [Protonix] MEDS 09/17/21 06:30 Active 40 mg PO QDAC Sodium Chloride 0.9% [Sodium Chloride] 1,000 ml MEDS 09/16/21 15:00 Active IV 75 mls/hr Tizanidine HCl [Zanaflex] MEDS 09/16/21 15:09 Active 4 mg PO Q12HR PRN [id number] [Trelegy Ellipta] MEDS 09/17/21 09:00 Active 1 inh IH DAILY RESUSCITATION STATUS Routine OTHERS 09/16/21 14:54 Completed RESUSCITATION STATUS Routine OTHERS 09/16/21 15:21 Ordered Medications Generic Name Dose Route Start Last Admin Trade Name Freq PRN Reason Stop Dose Admin Albuterol Sulfate 2 puff 09/16/21 15:09 Albuterol Sulfate (Ventolin Hfa) 18 Gm 1 Puff With Spacer IH QID PRN Wheezing Alprazolam 0.5 mg 09/16/21 15:09 Alprazolam 0.5 Mg Tablet PO QID PRN Anxiety Aspirin 81 mg 09/16/21 21:00 Aspirin 81 Mg Tablet. PO BEDTIME NAMAN Diltiazem HCl 60 mg 09/16/21 21:00 Diltiazem Hcl 60 Mg Tablet PO BID NAMAN Enoxaparin Sodium 40 mg 09/17/21 09:00 Enoxaparin Sodium 40 Mg/0.4 Ml Syr SUBCUT DAILY NAMAN Sodium Chloride 1,000 mls @ 75 mls/hr 09/16/21 15:00 09/16/21 15:43 Sodium Chloride IV 75 mls/hr .[id number] NAMAN Administration Levothyroxine Sodium 50 mcg 09/17/21 06:30 Levothyroxine Sodium 50 Mcg Tablet PO QDAC NAMAN Metformin HCl 500 mg 09/16/21 17:00 09/16/21 17:50 Metformin Hcl 500 Mg Tablet PO 500 mg BIDWM NAMAN Administration Mirtazapine 15 mg 09/16/21 21:00 Mirtazapine 15 Mg Tablet PO BEDTIME NAMAN Non-Formulary Medication 1 inh 09/17/21 09:00 [id number] [Trelegy Ellipta] IH DAILY NAMAN Oxycodone/Acetaminophen 1 tab 09/16/21 15:09 Oxycodone/Acetaminophen 7.5/325 Mg Tablet PO QID PRN MODERATE PAIN Pantoprazole Sodium 40 mg 09/17/21 06:30 Pantoprazole Sodium 40 Mg Tablet. PO QDAC NAMAN Tizanidine HCl 4 mg 09/16/21 15:09 Tizanidine Hcl 4 Mg Tablet PO Q12HR PRN Spasms Discontinued Medications Generic Name Dose Route Start Last Admin Trade Name Freq PRN Reason Stop Dose Admin Hydrocortisone Sodium Succinate 100 mg 09/16/21 15:45 09/16/21 15:43 Hydrocortisone Sod Succ/Pf 100 Mg/2 Ml Vial IVP 09/16/21 15:46 100 mg ONCE ONE Administration Oxycodone/Acetaminophen 1 tab 09/16/21 14:07 09/16/21 14:17 Oxycodone/Acetaminophen 7.5/325 Mg Tablet PO 09/16/21 14:08 1 tab ONCE STA Administration Vital Signs: Temp Pulse Resp BP Pulse Ox 09/16/21 13:34 98.0 F 107 H 18 136/87 93 L Discharge Plan Discharge Patient Disposition: ADMITTED INPATIENT Discharge Problem: Acute hyponatremia, Anxiety, Arm paresthesia, right, Right leg paresthesias ED Provider: NEERAJ BROOKS Condition: Stable Physician Progress Note: []
[2021-09-16 14:06] LABS: BASOPHILS % (AUTO) 0.3 % (0.0-3.0); EOSINOPHILS # (AUTO) 0.1 K/ul (0.0-0.7); EOSINOPHILS % (AUTO) 1.2 % (0.0-7.0); HEMATOCRIT 35.6 % (37.0-47.0); HEMOGLOBIN 12.5 g/dl (12.0-16.0); IMMATURE GRANULOCYTE # (AUTO) 0.1 (0.0-1.0); IMMATURE GRANULOCYTE % (AUTO) 0.8 % (0.0-5.0); LYMPHOCYTES # (AUTO) 2.8 K/uL (0.60-3.4); LYMPHOCYTES % (AUTO) 30.2 (10.0-50.0); MEAN CORPUSCULAR HGB CONC 35.1 (31.8-35.4); MEAN CORPUSCULAR VOLUME 85.6 fl (81.0-99.0); MONOCYTES # (AUTO) 0.7 K/uL (0.4-2.0); MONOCYTES % (AUTO) 7.6 (0-10); NEUTROPHILS # (AUTO) 5.6 K/ul (2.0-6.9); NEUTROPHILS % (AUTO) 59.9 % (42.2-75.2); PLATELET COUNT 247 10^3/uL (140-440); RDW COEFFICIENT OF VARIATION 12.5 % (11.6-14.8); RED BLOOD COUNT 4.16 10^6/ul (4.20-5.40); WHITE BLOOD COUNT 9.31 K/ul (4.6-10.2)
[2021-09-16] MEDS ORDERED: PERCOCET 7.5-325 PO STA (14:07)
[2021-09-16 14:19] LABS: ALANINE AMINOTRANSFERASE 16.8 U/L (0-35); ALBUMIN 4.32 g/dL (3.5-5.0); ALKALINE PHOSPHATASE 91.3 U/L (53-141); ASPARTATE AMINO TRANSFERASE 17.6 U/L (14-36); BILIRUBIN,TOTAL 0.59 mg/dL (0.2-1.3); BLOOD UREA NITROGEN 17.1 mg/dL (7-17); CALCIUM 9.46 mg/dL (8.4-10.2); CARBON DIOXIDE 24.4 mmol/L (22-30.0); CHLORIDE 94.5 mmol/L (98-107); CREATININE 0.8 mg/dL (0.60-1.30); GLUCOSE 169.5 mg/dL (74-106); POTASSIUM 3.88 mmol/L (3.5-5.1); SODIUM 126.4 mmol/L (134.5-145); TOTAL PROTEIN 6.9 g/dL (6.3-8.2)
[2021-09-16 15:03] LABS: BORDETELLA PARAPERTUSSIS (PCR) NOT DETECTED (NOT DETECT); BORDETELLA PERTUSSIS (PCR) NOT DETECTED (NOT DETECT); CHLAMYDIA PNEUMONIAE (PCR) NOT DETECTED (NOT DETECT); CORONAVIRUS 229E (PCR) NOT DETECTED (NOT DETECT); CORONAVIRUS HKU1 (PCR) NOT DETECTED (NOT DETECT); CORONAVIRUS NL63 (PCR) NOT DETECTED (NOT DETECT); CORONAVIRUS OC43 (PCR) NOT DETECTED (NOT DETECT); HUMAN METAPNEUMOVIRUS (PCR) NOT DETECTED (NOT DETECT); HUMAN RHINOVIRUS/ENTEROV (PCR) NOT DETECTED (NOT DETECT); INFLUENZA B (PCR) NOT DETECTED (NOT DETECT); MYCOPLASMA PNEUMONIAE (PCR) NOT DETECTED (NOT DETECT); PARAINFLUENZA VIRUS 1 (PCR) NOT DETECTED (NOT DETECT); PARAINFLUENZA VIRUS 2 (PCR) NOT DETECTED (NOT DETECT); PARAINFLUENZA VIRUS 3 (PCR) NOT DETECTED (NOT DETECT); PARAINFLUENZA VIRUS 4 (PCR) NOT DETECTED (NOT DETECT); RESPIRATORY SYNCYTIAL V (PCR) NOT DETECTED (NOT DETECT); SARS_COV_2 (PCR) NOT DETECTED (NOT DETECT)
[2021-09-16] MEDS ORDERED: VENTOLIN HFA (PER PUFF-WITH SPACER) IH PRN (15:09)
[2021-09-16] MEDS ORDERED: SOLU CORTEF IV ONE (15:21)
[2021-09-16] MEDS ORDERED: SODIUM CHLORIDE IV ONE (15:21)
[2021-09-16] MEDS: SODIUM CHLORIDE 1,000 ML IV SCH (15:43)
[2021-09-16] MEDS ORDERED: SOLU-CORTEF 100 MG IVP ONE (15:45)
[2021-09-16 15:51] LABS: ADENOVIRUS (PCR) NOT DETECTED (NOT DETECT)
[2021-09-16 17:36] VITALS: BMI 35.9
[2021-09-16] MEDS: GLUCOPHAGE PO SCH (17:50)
[2021-09-16] MEDS: PERCOCET 7.5-325 PO PRN (19:55)
[2021-09-16] MEDS: XANAX PO PRN (19:55)
[2021-09-16] MEDS: ASPIRIN EC PO SCH (20:00)
[2021-09-16] MEDS: CARDIZEM PO SCH (20:00)
[2021-09-16] MEDS ORDERED: DILTIAZEM HCL 60 MG PO SCH (21:00)
[2021-09-16] MEDS ORDERED: REMERON PO SCH (21:00)
[2021-09-17] MEDS: ZANAFLEX PO PRN (02:45)
[2021-09-17] MEDS: SODIUM CHLORIDE 1,000 ML IV SCH ×3 (03:01→17:53)
[2021-09-17 04:57] LABS: BASOPHILS % (AUTO) 0.3 % (0.0-3.0); EOSINOPHILS # (AUTO) 0.1 K/ul (0.0-0.7); HEMATOCRIT 33.1 % (37.0-47.0); HEMOGLOBIN 11.3 g/dl (12.0-16.0); IMMATURE GRANULOCYTE # (AUTO) 0.1 (0.0-1.0); IMMATURE GRANULOCYTE % (AUTO) 0.9 % (0.0-5.0); LYMPHOCYTES # (AUTO) 2.6 K/uL (0.60-3.4); LYMPHOCYTES % (AUTO) 32.4 (10.0-50.0); MEAN CORPUSCULAR HEMOGLOBIN 30.1 pg (27.0-31.0); MEAN CORPUSCULAR HGB CONC 34.1 (31.8-35.4); MONOCYTES # (AUTO) 0.7 K/uL (0.4-2.0); MONOCYTES % (AUTO) 8.8 (0-10); NEUTROPHILS # (AUTO) 4.5 K/ul (2.0-6.9); NEUTROPHILS % (AUTO) 56.6 % (42.2-75.2); PLATELET COUNT 231 10^3/uL (140-440); RDW COEFFICIENT OF VARIATION 12.5 % (11.6-14.8); RED BLOOD COUNT 3.76 10^6/ul (4.20-5.40); WHITE BLOOD COUNT 7.88 K/ul (4.6-10.2)
[2021-09-17 05:10] LABS: ALANINE AMINOTRANSFERASE 16.8 U/L (0-35); ALBUMIN 3.8 g/dL (3.5-5.0); ALKALINE PHOSPHATASE 70.5 U/L (53-141); ASPARTATE AMINO TRANSFERASE 16.6 U/L (14-36); BILIRUBIN,TOTAL 0.52 mg/dL (0.2-1.3); BLOOD UREA NITROGEN 19.4 mg/dL (7-17); CALCIUM 8.88 mg/dL (8.4-10.2); CARBON DIOXIDE 22.3 mmol/L (22-30.0); CHLORIDE 101.1 mmol/L (98-107); CREATININE 0.84 mg/dL (0.60-1.30); GLUCOSE 198.3 mg/dL (74-106); POTASSIUM 3.87 mmol/L (3.5-5.1); SODIUM 129.7 mmol/L (134.5-145); TOTAL PROTEIN 6.18 g/dL (6.3-8.2)
[2021-09-17] MEDS: SYNTHROID PO SCH (05:30)
[2021-09-17] MEDS: PROTONIX PO SCH (05:30)
[2021-09-17] MEDS: XANAX PO PRN ×2 (05:53→16:37)
[2021-09-17] MEDS: CARDIZEM PO SCH ×2 (08:34→20:00)
[2021-09-17] MEDS: GLUCOPHAGE PO SCH ×2 (08:34→16:37)
[2021-09-17] MEDS: PERCOCET 7.5-325 PO PRN ×3 (08:34→19:56)
[2021-09-17] MEDS ORDERED: NON-FORMULARY MEDICATION (Fluticasone-Umeclidin-Vilanter [Trelegy Ellipta] 200-62.5-25 mcg IH SCH (09:00)
[2021-09-17] MEDS ORDERED: LOVENOX SUBCUT SCH (09:00)
--- NOTE | 2021-09-17 11:16 | DI ---
EXAM: Single view of the chest HISTORY: Shortness of breath. COMPARISON: Chest x-ray 09/04/2021 FINDINGS: Cardiomediastinal silhouette is stable. There is no pneumothorax or effusion. There is ri ght basilar atelectasis. There is no consolidation, nodule or mass. The osseous structures are unre markable. IMPRESSION: No acute cardiopulmonary process with stable cardiomediastinal silhouette
[2021-09-17] MEDS: CYMBALTA PO SCH (11:31)
--- NOTE | 2021-09-17 11:50 | PCM.PROG ---
Attending Provider: ATTENDING PROVIDER: Dr. SHIRA LACY This patient is seen with Lelo Norman, Nurse Practitioner. DATE OF SERVICE: 09/17/21 SUBJECTIVE: This 76 year old /WHITE F was hospitalized 09/16/21. The patient is complaining of right sided pain. Described it from her shoulder down to toes. She has had multiple visits to ER in [place] all with negative workup. She has had no trauma. Sodium improved today. Sleeping a lot. Family would like her to considering going to [facility] for treatment of her anxiety and depression. The patient is considering. We called the facility and no available. bed. REVIEW OF SYSTEMS: CONSTITUTIONAL: No night sweats. Fatigue. No fever or chills. HEENT: Eyes: No visual changes. No eye pain. No eye discharge. ENT: No runny nose. No epistaxis. No sinus pain. No odynophagia. No congestion. RESPIRATORY: No cough, no congestion. No hemoptysis. No shortness of breath. CARDIOVASCULAR: No angina symptoms. No CHF symptoms. No atypical chest pain for CAD. No palpitations. No orthopnea.. GASTROINTESTINAL: No abdominal pain. No nausea or vomiting. No diarrhea or constipation. No hematemesis. No hematochezia. GENITOURINARY: No urgency. No frequency. No dysuria. No hematuria. No obstructive symptoms. No discharge. No pain. No significant abnormal bleeding. MUSCULOSKELETAL: No musculoskeletal pain; no joint swelling. Right sided pain. NEUROLOGICAL: Awake, alert, oriented to time, place and person. No headache. No neck pain. No syncope. No seizures. No dizziness. PSYCHIATRIC: Anxious. No depression. No suicidal thoughts. No homicidal thoughts. SKIN: No rash. No lesions. No wounds. ENDOCRINE: No unexplained weight loss. No weight gain. HEMATOLOGIC/LYMPHATIC: No anemia. No purpura. No petechiae. No prolonged or excessive bleeding. No palpable lymph nodes. PHYSICAL EXAMINATION: GENERAL: The patient is awake, alert and oriented, sitting in bed in no distress. VITAL SIGNS: Temperature 97.7 F, Pulse 82, Respiratory Rate 20, BP 119/67, Pulse Ox 90% HEENT: Head normocephalic, atraumatic. Eyes: Extraocular muscles are intact. Pupils are equal, round and reactive to light and accommodation. Ears: No lesions. Nose appeared normal. Throat: No exudate or erythema. NECK: Supple. No JVD, no carotid bruit. No lymphadenopathy or thyromegaly. LUNGS: Diminished breath sounds. Clear to auscultation. Percussion note normal. Chest symmetrical. HEART: S1, S2, no S3. No murmurs. No cyanosis or clubbing. No ascites. Pulses: Dorsalis pedis and posterior tibial pulses +1 to +2 both sides. ABDOMEN: Soft. Non-tender. Bowel sounds active. No CVA tenderness. No mass felt. EXTREMITIES: No edema. Full range of motion of all extremities, equal. NEUROLOGIC: No focal deficit. Cranial nerves II through XII are grossly intact. No headache. No double vision. SKIN: Not dry. Intact. Turgor-normal. LYMPHATIC: No palpable lymph nodes/no lymphedema. MUSCULOSKELETAL: Normal joints with no swelling. Muscle tone is normal. LAB REVIEW: 09/17/21 04:52 09/17/21 04:52 09/17/21 04:52: Sodium 129.7 L, Potassium 3.87, Chloride 101.1, Carbon Dioxide 22.3, Anion Gap 10.17, BUN 19.4 H, Creatinine 0.84, Estimated GFR (MDRD) 66.00, BUN/Creatinine Ratio 23.09, Glucose 198.3 H, Calcium 8.88, Total Bilirubin 0.52, AST 16.6, ALT 16.8, Alkaline Phosphatase 70.5, Total Protein 6.18 L, Albumin 3.80, Globulin 2.38, Albumin/Globulin Ratio 1.59 09/17/21 04:52: WBC 7.88, RBC 3.76 L, Hgb 11.3 L, Hct 33.1 L, MCV 88.0, MCH 30.1, MCHC 34.1, RDW Coeff of Sharon 12.5, Plt Count 231, Immature Gran % (Auto) 0.9, Neut % (Auto) 56.6, Lymph % (Auto) 32.4, Warren % (Auto) 8.8, Eos % (Auto) 1.0, Baso % (Auto) 0.3, Neut # (Auto) 4.5, Lymph # (Auto) 2.6, Warren # (Auto) 0.7, Eos # (Auto) 0.1, Baso # (Auto) 0.0, Immature Gran # (Auto) 0.1 09/16/21 14:54: Adenovirus (PCR) Not detected, B. pertussis DNA (PCR) Not detected, B.parapertussis DNA PCR Not detected, C. pneumoniae DNA (PCR) Not detected, Coronavirus OC43 (PCR) Not detected, Coronavirus HKU1 (PCR) Not detected, Coronavirus 229E (PCR) Not detected, Coronavirus NL63 (PCR) Not detected, Human Metapneumovir PCR Not detected, Influenza Type A (PCR) Not detected, Influenza B (RT-PCR) Not detected, M. pneumoniae (PCR) Not detected, Parainfluenza 1 (PCR) Not detected, Parainfluenza 2 (PCR) Not detected, Parainfluenza 3 (PCR) Not detected, Parainfluenza 4 (PCR) Not detected, RSV (PCR) Not detected, Entero/Rhino (PCR) Not detected, SARS-CoV-2 (PCR) Not detected 09/16/21 14:02: Sodium 126.4 L, Potassium 3.88, Chloride 94.5 L, Carbon Dioxide 24.4, Anion Gap 11.38, BUN 17.1 H, Creatinine 0.80, Estimated GFR (MDRD) 70.00, BUN/Creatinine Ratio 21.37, Glucose 169.5 H, Calcium 9.46, Total Bilirubin 0.59, AST 17.6, ALT 16.8, Alkaline Phosphatase 91.3, Total Protein 6.90, Albumin 4.32, Globulin 2.58, Albumin/Globulin Ratio 1.67 09/16/21 14:02: WBC 9.31, RBC 4.16 L, Hgb 12.5, Hct 35.6 L, MCV 85.6, MCH 30.0, MCHC 35.1, RDW Coeff of Sharon 12.5, Plt Count 247, Immature Gran % (Auto) 0.8, Neut % (Auto) 59.9, Lymph % (Auto) 30.2, Warren % (Auto) 7.6, Eos % (Auto) 1.2, Baso % (Auto) 0.3, Neut # (Auto) 5.6, Lymph # (Auto) 2.8, Warren # (Auto) 0.7, Eos # (Auto) 0.1, Baso # (Auto) 0.0, Immature Gran # (Auto) 0.1 ASSESSMENT: Please see below. 1. Right sided pain 2. Anxiety 3. Depression 4. COPD 5. Hyponatremia 6. Noncompliance with medications, lifestyle and followup. PLAN: 1. U/A 2. Chest x-ray 3. Discontinue Lovenox 4. Decrease Xanax to TID 5. Cymbalta 30mg in the morning 6. Decrease Remeron 7.5mg at night Plan and coordination of the patient's care discussed in the presence of Case Melissa mojica and nurse. SCRIBED BY: Kelly HERCULES scribed while in presence of service performed by Dr. Lacy/Lelo Norman APRN on 09/17/21 ([id number])
[2021-09-17 13:21] LABS: BILIRUBIN,URINE Negative (NEGATIVE); CLARITY,URINE Turbid (CLEAR); COLOR,URINE Yellow (YELLOW); GLUCOSE, URINE (UA) 1+ (NEGATIVE); KETONES,URINE Negative (NEGATIVE); LEUKOCYTE ESTERASE ,URINE 1+ (NEGATIVE); NITRITE,URINE Negative (NEGATIVE); PH,URINE 5.5 (5-9); PROTEIN,URINE Negative (NEGATIVE); URINE, BLOOD Negative (NEGATIVE); UROBILINOGEN,URINE 0.2 (0.2)
[2021-09-17 13:34] LABS: BACTERIA,URINE TRACE (NOT PRESENT); SQUAMOUS EPITHELIAL CELL,UR 50-100 (0-5); URINE WBC, MICROSCOPIC 20-30 (0-2)
[2021-09-17] MEDS: ASPIRIN EC PO SCH (20:00)
[2021-09-17] MEDS: REMERON PO SCH (20:00)
[2021-09-18] MEDS: PERCOCET 7.5-325 PO PRN ×4 (02:32→21:04)
[2021-09-18] MEDS: PROTONIX PO SCH (05:55)
[2021-09-18] MEDS: SYNTHROID PO SCH (05:56)
[2021-09-18] MEDS: SODIUM CHLORIDE 1,000 ML IV SCH ×2 (06:03→18:52)
[2021-09-18 06:31] LABS: BASOPHILS % (AUTO) 0.6 % (0.0-3.0); EOSINOPHILS # (AUTO) 0.1 K/ul (0.0-0.7); EOSINOPHILS % (AUTO) 1.6 % (0.0-7.0); HEMATOCRIT 32.9 % (37.0-47.0); HEMOGLOBIN 11.3 g/dl (12.0-16.0); IMMATURE GRANULOCYTE # (AUTO) 0.1 (0.0-1.0); IMMATURE GRANULOCYTE % (AUTO) 0.9 % (0.0-5.0); LYMPHOCYTES # (AUTO) 2.8 K/uL (0.60-3.4); LYMPHOCYTES % (AUTO) 39.8 (10.0-50.0); MEAN CORPUSCULAR HEMOGLOBIN 30.6 pg (27.0-31.0); MEAN CORPUSCULAR HGB CONC 34.3 (31.8-35.4); MEAN CORPUSCULAR VOLUME 89.2 fl (81.0-99.0); MONOCYTES # (AUTO) 0.6 K/uL (0.4-2.0); MONOCYTES % (AUTO) 9.1 (0-10); NEUTROPHILS # (AUTO) 3.3 K/ul (2.0-6.9); PLATELET COUNT 215 10^3/uL (140-440); RDW COEFFICIENT OF VARIATION 12.9 % (11.6-14.8); RED BLOOD COUNT 3.69 10^6/ul (4.20-5.40); WHITE BLOOD COUNT 6.93 K/ul (4.6-10.2)
[2021-09-18 06:44] LABS: ALANINE AMINOTRANSFERASE 13.6 U/L (0-35); ALBUMIN 3.52 g/dL (3.5-5.0); ASPARTATE AMINO TRANSFERASE 14.5 U/L (14-36); BILIRUBIN,TOTAL 0.38 mg/dL (0.2-1.3); BLOOD UREA NITROGEN 19.3 mg/dL (7-17); CALCIUM 8.42 mg/dL (8.4-10.2); CARBON DIOXIDE 25.2 mmol/L (22-30.0); CHLORIDE 105.2 mmol/L (98-107); CREATININE 0.69 mg/dL (0.60-1.30); GLUCOSE 104.9 mg/dL (74-106); POTASSIUM 4.06 mmol/L (3.5-5.1); TOTAL PROTEIN 5.91 g/dL (6.3-8.2)
[2021-09-18] MEDS: CYMBALTA PO SCH (08:43)
[2021-09-18] MEDS: GLUCOPHAGE PO SCH ×2 (08:43→17:14)
[2021-09-18] MEDS: CARDIZEM PO SCH ×2 (08:43→21:05)
[2021-09-18] MEDS: SPIRIVA IH SCH (09:00)
[2021-09-18] MEDS: SYMBICORT 160-4.5 MCG INHALER IH SCH ×2 (09:00→21:06)
--- NOTE | 2021-09-18 09:58 | PCM.PROG ---
Attending Provider: ATTENDING PROVIDER: Dr. SHIRA DIAZ DATE OF SERVICE: 09/18/21 SUBJECTIVE: This 76 year old /WHITE F was hospitalized 09/16/21 with hyponatremia which seem to have resolved. The patient's other problem is depression with generalized pain with osteroarthritis followed by psychiatrist and Pain Management. The patient is noncompliant in followups. She is a heavy smoker. BMI is 36. Problems mostly social, she lives by herself and unable to take care of herself. She has generalized anxiety disorder. Psych unit in [place] has been contracted and screening process needs to be done. They don't have any bed available. The hospital is in touch with them. The son and the patient are both agreeable. REVIEW OF SYSTEMS: CONSTITUTIONAL: No night sweats. No fatigue, malaise, lethargy. No fever or chills. HEENT: Eyes: No visual changes. No eye pain. No eye discharge. ENT: No runny nose. No epistaxis. No sinus pain. No odynophagia. No congestion. RESPIRATORY: No cough, no congestion. No hemoptysis. No shortness of breath. CARDIOVASCULAR: No angina symptoms. No CHF symptoms. No atypical chest pain for CAD. No palpitations. No orthopnea.. GASTROINTESTINAL: No abdominal pain. No nausea or vomiting. No diarrhea or constipation. No hematemesis. No hematochezia. GENITOURINARY: No urgency. No frequency. No dysuria. No hematuria. No obstructive symptoms. No discharge. No pain. No significant abnormal bleeding. MUSCULOSKELETAL: No musculoskeletal pain; no joint swelling. NEUROLOGICAL: Awake, alert, oriented to time, place and person. No headache. No neck pain. No syncope. No seizures. No dizziness. PSYCHIATRIC: Not anxious. No depression. No suicidal thoughts. No homicidal thoughts. SKIN: No rash. No lesions. No wounds. ENDOCRINE: No unexplained weight loss. No weight gain. HEMATOLOGIC/LYMPHATIC: No anemia. No purpura. No petechiae. No prolonged or excessive bleeding. No palpable lymph nodes. PHYSICAL EXAMINATION: GENERAL: The patient is awake, alert and oriented, lying in bed in no distress. VITAL SIGNS: Temperature 97.8 F, Pulse 77, Respiratory Rate 20, BP 156/89, Pulse Ox 99% HEENT: Head normocephalic, atraumatic. Eyes: Extraocular muscles are intact. Pupils are equal, round and reactive to light and accommodation. Ears: No lesions. Nose appeared normal. Throat: No exudate or erythema. NECK: Supple. No JVD, no carotid bruit. No lymphadenopathy or thyromegaly. LUNGS: Decreased breath sounds. Clear to auscultation. Percussion note normal. Chest symmetrical. HEART: S1, S2, no S3. No murmurs. No cyanosis or clubbing. No ascites. Pulses: Dorsalis pedis and posterior tibial pulses +1 to +2 both sides. ABDOMEN: Soft. Non-tender. Bowel sounds active. No CVA tenderness. No mass felt. EXTREMITIES: No edema. Full range of motion of all extremities, equal. NEUROLOGIC: No focal deficit. Cranial nerves II through XII are grossly intact. No headache, no double vision or headache. SKIN: Warm and dry. Intact. Turgor-normal. LYMPHATIC: No palpable lymph nodes/no lymphedema. MUSCULOSKELETAL: Normal joints with no swelling. Muscle tone is normal. LAB REVIEW: 09/18/21 05:20 09/18/21 06:30 09/18/21 06:30: Sodium 133.0 L, Potassium 4.06, Chloride 105.2, Carbon Dioxide 25.2, Anion Gap 6.66, BUN 19.3 H, Creatinine 0.69, Estimated GFR (MDRD) 83.00, BUN/Creatinine Ratio 27.97, Glucose 104.9, Calcium 8.42, Total Bilirubin 0.38, AST 14.5, ALT 13.6, Alkaline Phosphatase 75.0, Total Protein 5.91 L, Albumin 3.52, Globulin 2.39, Albumin/Globulin Ratio 1.47 09/18/21 05:20: WBC 6.93, RBC 3.69 L, Hgb 11.3 L, Hct 32.9 L, MCV 89.2, MCH 30.6, MCHC 34.3, RDW Coeff of Sharon 12.9, Plt Count 215, Immature Gran % (Auto) 0.9, Neut % (Auto) 48.0, Lymph % (Auto) 39.8, Heard % (Auto) 9.1, Eos % (Auto) 1.6, Baso % (Auto) 0.6, Neut # (Auto) 3.3, Lymph # (Auto) 2.8, Heard # (Auto) 0.6, Eos # (Auto) 0.1, Baso # (Auto) 0.0, Immature Gran # (Auto) 0.1 09/17/21 13:13: Urine Color Yellow, Urine Clarity Turbid, Urine pH 5.5, Ur Specific Avinger 1.025, Urine Protein Negative, Urine Glucose (UA) 1+ H, Urine Ketones Negative, Urine Blood Negative, Urine Nitrite Negative, Urine Bilirubin Negative, Urine Urobilinogen 0.2, Ur Leukocyte Esterase 1+ H, Urine Microscopic WBC 20-30, Ur Squamous Epith Cells 50-100, Urine Bacteria Trace ASSESSMENT: Please see below. 1. Dehydration 2. Hyponatremia almost resolved 3. Chronic lung disease with history of smoking 4. Depression with generalized anxiety disorder followed by Dr. Guo 5. Generalized osteoarthritis involving spine and knees followed by Pain Management Dr. Copeland PLAN: 1. Continue all medications including Xanax and Cymbalta which was started 2. Continue to be in touch with [facility]. Son is taking interest. We have been in touch along with other health care providers. 3. The patient is oriented to time, place and person but hard of hearing Plan and coordination of the patient's care discussed in the presence of Health Sanitarian and nurse. Son is present in the room and discussed with the patient about going to [facility] and the patient is willing. There is no bed at present time but the hospital is in touch with them. The patient is medically cleared. Her cardiovascular status is stable to go to [facility] adult psychiatric unit. CONDITION: Stable. SCRIBED BY: Kelly HERCULES scribed while in presence of service performed by Dr. SHIRA DIAZ on 09/18/21 ([id number])
[2021-09-18] MEDS: XANAX PO PRN ×2 (10:58→21:04)
[2021-09-18] MEDS: ZANAFLEX PO PRN (14:59)
[2021-09-18] MEDS: REMERON PO SCH (21:05)
[2021-09-18] MEDS: ASPIRIN EC PO SCH (21:06)
[2021-09-19] MEDS: ZANAFLEX PO PRN ×2 (03:21→20:23)
[2021-09-19 05:36] LABS: BASOPHILS % (AUTO) 0.5 % (0.0-3.0); EOSINOPHILS # (AUTO) 0.1 K/ul (0.0-0.7); EOSINOPHILS % (AUTO) 2.2 % (0.0-7.0); HEMATOCRIT 29.1 % (37.0-47.0); HEMOGLOBIN 9.8 g/dl (12.0-16.0); IMMATURE GRANULOCYTE # (AUTO) 0.1 (0.0-1.0); IMMATURE GRANULOCYTE % (AUTO) 0.8 % (0.0-5.0); LYMPHOCYTES # (AUTO) 2.3 K/uL (0.60-3.4); LYMPHOCYTES % (AUTO) 36.9 (10.0-50.0); MEAN CORPUSCULAR HEMOGLOBIN 30.4 pg (27.0-31.0); MEAN CORPUSCULAR HGB CONC 33.7 (31.8-35.4); MEAN CORPUSCULAR VOLUME 90.4 fl (81.0-99.0); MONOCYTES # (AUTO) 0.6 K/uL (0.4-2.0); MONOCYTES % (AUTO) 9.3 (0-10); NEUTROPHILS # (AUTO) 3.1 K/ul (2.0-6.9); NEUTROPHILS % (AUTO) 50.3 % (42.2-75.2); PLATELET COUNT 195 10^3/uL (140-440); RED BLOOD COUNT 3.22 10^6/ul (4.20-5.40); WHITE BLOOD COUNT 6.23 K/ul (4.6-10.2)
[2021-09-19 05:54] LABS: ALANINE AMINOTRANSFERASE 12.2 U/L (0-35); ALBUMIN 3.27 g/dL (3.5-5.0); ALKALINE PHOSPHATASE 67.7 U/L (53-141); ASPARTATE AMINO TRANSFERASE 14.8 U/L (14-36); BILIRUBIN,TOTAL 0.38 mg/dL (0.2-1.3); BLOOD UREA NITROGEN 19.7 mg/dL (7-17); CALCIUM 8.17 mg/dL (8.4-10.2); CARBON DIOXIDE 27.3 mmol/L (22-30.0); CREATININE 0.71 mg/dL (0.60-1.30); GLUCOSE 119.3 mg/dL (74-106); POTASSIUM 4.13 mmol/L (3.5-5.1); SODIUM 134.6 mmol/L (134.5-145); TOTAL PROTEIN 5.54 g/dL (6.3-8.2)
[2021-09-19] MEDS: SYNTHROID PO SCH (05:58)
[2021-09-19] MEDS: PROTONIX PO SCH (05:58)
[2021-09-19] MEDS: PERCOCET 7.5-325 PO PRN ×3 (06:04→18:10)
[2021-09-19] MEDS: SODIUM CHLORIDE 1,000 ML IV SCH ×2 (07:26→20:24)
[2021-09-19] MEDS: CARDIZEM PO SCH ×2 (08:26→20:23)
[2021-09-19] MEDS: GLUCOPHAGE PO SCH ×2 (08:26→17:10)
[2021-09-19] MEDS: CYMBALTA PO SCH (08:26)
[2021-09-19] MEDS: SYMBICORT 160-4.5 MCG INHALER IH SCH ×2 (08:27→22:00)
[2021-09-19] MEDS: SPIRIVA IH SCH (08:27)
[2021-09-19] MEDS: XANAX PO PRN (09:30)
[2021-09-19] MEDS: REMERON PO SCH (20:23)
[2021-09-19] MEDS: ASPIRIN EC PO SCH (20:23)
[2021-09-20] MEDS: PERCOCET 7.5-325 PO PRN ×4 (00:22→19:07)
[2021-09-20] MEDS: XANAX PO PRN ×3 (05:10→20:31)
[2021-09-20] MEDS: PROTONIX PO SCH (05:31)
[2021-09-20] MEDS: SYNTHROID PO SCH (05:31)
[2021-09-20 05:50] LABS: BASOPHILS % (AUTO) 0.4 % (0.0-3.0); EOSINOPHILS # (AUTO) 0.2 K/ul (0.0-0.7); EOSINOPHILS % (AUTO) 3.2 % (0.0-7.0); HEMATOCRIT 30.2 % (37.0-47.0); HEMOGLOBIN 10.2 g/dl (12.0-16.0); IMMATURE GRANULOCYTE % (AUTO) 0.6 % (0.0-5.0); LYMPHOCYTES # (AUTO) 2.2 K/uL (0.60-3.4); LYMPHOCYTES % (AUTO) 31.7 (10.0-50.0); MEAN CORPUSCULAR HEMOGLOBIN 30.3 pg (27.0-31.0); MEAN CORPUSCULAR HGB CONC 33.8 (31.8-35.4); MEAN CORPUSCULAR VOLUME 89.6 fl (81.0-99.0); MONOCYTES # (AUTO) 0.6 K/uL (0.4-2.0); MONOCYTES % (AUTO) 9.1 (0-10); NEUTROPHILS # (AUTO) 3.8 K/ul (2.0-6.9); PLATELET COUNT 195 10^3/uL (140-440); RDW COEFFICIENT OF VARIATION 12.9 % (11.6-14.8); RED BLOOD COUNT 3.37 10^6/ul (4.20-5.40); WHITE BLOOD COUNT 6.84 K/ul (4.6-10.2)
[2021-09-20 06:06] LABS: ALBUMIN 3.25 g/dL (3.5-5.0); ALKALINE PHOSPHATASE 66.4 U/L (53-141); ASPARTATE AMINO TRANSFERASE 20.6 U/L (14-36); BILIRUBIN,TOTAL 0.46 mg/dL (0.2-1.3); BLOOD UREA NITROGEN 15.9 mg/dL (7-17); CALCIUM 8.16 mg/dL (8.4-10.2); CARBON DIOXIDE 27.1 mmol/L (22-30.0); CHLORIDE 105.8 mmol/L (98-107); CREATININE 0.59 mg/dL (0.60-1.30); GLUCOSE 100.6 mg/dL (74-106); POTASSIUM 3.99 mmol/L (3.5-5.1); SODIUM 134.2 mmol/L (134.5-145); TOTAL PROTEIN 5.48 g/dL (6.3-8.2)
[2021-09-20] MEDS: CARDIZEM PO SCH ×2 (08:52→20:32)
[2021-09-20] MEDS: GLUCOPHAGE PO SCH ×2 (08:52→16:53)
[2021-09-20] MEDS: CYMBALTA PO SCH (08:52)
[2021-09-20] MEDS: SYMBICORT 160-4.5 MCG INHALER IH SCH ×2 (08:53→20:35)
[2021-09-20] MEDS: SPIRIVA IH SCH (08:53)
[2021-09-20] MEDS: ZANAFLEX PO PRN ×2 (09:18→21:32)
[2021-09-20] MEDS: SODIUM CHLORIDE 1,000 ML IV SCH (09:18)
[2021-09-20] MEDS ORDERED: DULCOLAX PO ONE (19:49)
[2021-09-20] MEDS: ASPIRIN EC PO SCH (20:32)
[2021-09-20] MEDS: REMERON PO SCH (20:32)
[2021-09-21] MEDS: PERCOCET 7.5-325 PO PRN ×3 (01:43→12:52)
[2021-09-21 05:30] VITALS: BP 130/65; TEMP 98.2
[2021-09-21 05:33] LABS: BASOPHILS % (AUTO) 0.4 % (0.0-3.0); EOSINOPHILS # (AUTO) 0.1 K/ul (0.0-0.7); EOSINOPHILS % (AUTO) 1.5 % (0.0-7.0); HEMATOCRIT 29.3 % (37.0-47.0); HEMOGLOBIN 9.9 g/dl (12.0-16.0); IMMATURE GRANULOCYTE % (AUTO) 0.4 % (0.0-5.0); LYMPHOCYTES # (AUTO) 1.9 K/uL (0.60-3.4); LYMPHOCYTES % (AUTO) 27.2 (10.0-50.0); MEAN CORPUSCULAR HEMOGLOBIN 30.2 pg (27.0-31.0); MEAN CORPUSCULAR HGB CONC 33.8 (31.8-35.4); MEAN CORPUSCULAR VOLUME 89.3 fl (81.0-99.0); MONOCYTES # (AUTO) 0.7 K/uL (0.4-2.0); MONOCYTES % (AUTO) 10.2 (0-10); NEUTROPHILS # (AUTO) 4.1 K/ul (2.0-6.9); NEUTROPHILS % (AUTO) 60.3 % (42.2-75.2); PLATELET COUNT 193 10^3/uL (140-440); RDW COEFFICIENT OF VARIATION 12.8 % (11.6-14.8); RED BLOOD COUNT 3.28 10^6/ul (4.20-5.40); WHITE BLOOD COUNT 6.79 K/ul (4.6-10.2)
[2021-09-21 05:51] LABS: ALANINE AMINOTRANSFERASE 15.7 U/L (0-35); ALBUMIN 3.54 g/dL (3.5-5.0); ALKALINE PHOSPHATASE 74.1 U/L (53-141); ASPARTATE AMINO TRANSFERASE 17.6 U/L (14-36); BILIRUBIN,TOTAL 0.64 mg/dL (0.2-1.3); BLOOD UREA NITROGEN 15.1 mg/dL (7-17); CALCIUM 8.75 mg/dL (8.4-10.2); CARBON DIOXIDE 30.6 mmol/L (22-30.0); CHLORIDE 101.9 mmol/L (98-107); CREATININE 0.69 mg/dL (0.60-1.30); GLUCOSE 111.3 mg/dL (74-106); POTASSIUM 4.2 mmol/L (3.5-5.1); SODIUM 133.3 mmol/L (134.5-145); TOTAL PROTEIN 5.84 g/dL (6.3-8.2)
[2021-09-21] MEDS: SYNTHROID PO SCH (05:57)
[2021-09-21] MEDS: PROTONIX PO SCH (05:57)
[2021-09-21] MEDS: SODIUM CHLORIDE 1,000 ML IV SCH ×2 (06:54→10:54)
[2021-09-21] MEDS: CARDIZEM PO SCH (08:22)
[2021-09-21] MEDS: GLUCOPHAGE PO SCH (08:22)
[2021-09-21] MEDS: CYMBALTA PO SCH (08:22)
[2021-09-21] MEDS: SYMBICORT 160-4.5 MCG INHALER IH SCH (08:23)
[2021-09-21] MEDS: SPIRIVA IH SCH (08:23)
--- NOTE | 2021-09-21 09:46 | PCM.PROG ---
Attending Provider: ATTENDING PROVIDER: Dr. SHIRA LACY This patient is seen with Lelo Norman, Nurse Practitioner. DATE OF SERVICE: 09/21/21 SUBJECTIVE: This 76 year old /WHITE F was hospitalized 09/16/21. Pain has been controlled with pain medications. She has an appointment with Dr. Copeland this afternoon. We will let her go right before her appointment. Discussed with family short of putting her in the [place] [facility] she has to have support in getting to appointment, managing her medications with with paid help or family support. We will continue with medications changes. She needs to followup with Dr. Guo as well. We have decreased her Xanax and Remeron and has been resting comfortably through the night and day. REVIEW OF SYSTEMS: CONSTITUTIONAL: No night sweats. No fatigue, malaise, lethargy. No fever or chills. Weakness. HEENT: Eyes: No visual changes. No eye pain. No eye discharge. ENT: No runny nose. No epistaxis. No sinus pain. No odynophagia. No congestion. RESPIRATORY: No cough, no congestion. No hemoptysis. No shortness of breath. CARDIOVASCULAR: No angina symptoms. No CHF symptoms. No atypical chest pain for CAD. No palpitations. No orthopnea.. GASTROINTESTINAL: No abdominal pain. No nausea or vomiting. No diarrhea or constipation. No hematemesis. No hematochezia. GENITOURINARY: No urgency. No frequency. No dysuria. No hematuria. No obstructive symptoms. No discharge. No pain. No significant abnormal bleeding. MUSCULOSKELETAL: No musculoskeletal pain; no joint swelling. Generalized pain. NEUROLOGICAL: Awake, alert, oriented to time, place and person. No headache. No neck pain. No syncope. No seizures. No dizziness. PSYCHIATRIC: Not anxious. No depression. No suicidal thoughts. No homicidal thoughts. SKIN: No rash. No lesions. No wounds. ENDOCRINE: No unexplained weight loss. No weight gain. HEMATOLOGIC/LYMPHATIC: No anemia. No purpura. No petechiae. No prolonged or excessive bleeding. No palpable lymph nodes. PHYSICAL EXAMINATION: GENERAL: The patient is awake, alert and oriented, lying in bed in no distress. VITAL SIGNS: Temperature 98.2 F, Pulse 70, Respiratory Rate 18, BP 130/65, Pu lse Ox 96% HEENT: Head normocephalic, atraumatic. Eyes: Extraocular muscles are intact. Pupils are equal, round and reactive to light and accommodation. Ears: No lesions. Nose appeared normal. Throat: No exudate or erythema. NECK: Supple. No JVD, no carotid bruit. No lymphadenopathy or thyromegaly. LUNGS: Diminished breath sounds. Clear to auscultation. Percussion note normal. Chest symmetrical. HEART: S1, S2, no S3. No murmurs. No cyanosis or clubbing. No ascites. Pulses: Dorsalis pedis and posterior tibial pulses +1 to +2 both sides. ABDOMEN: Soft. Non-tender. Bowel sounds active. No CVA tenderness. No mass felt. EXTREMITIES: No edema. Full range of motion of all extremities, equal. NEUROLOGIC: No focal deficit. Cranial nerves II through XII are grossly intact. No headache. No double vision. SKIN: Not dry. Intact. Turgor-normal. LYMPHATIC: No palpable lymph nodes/no lymphedema. MUSCULOSKELETAL: Normal joints with no swelling. Muscle tone is normal. LAB REVIEW: 09/21/21 04:56 09/21/21 04:56 09/21/21 04:56: Sodium 133.3 L, Potassium 4.20, Chloride 101.9, Carbon Dioxide 30.6 H, Anion Gap 5.00, BUN 15.1, Creatinine 0.69, Estimated GFR (MDRD) 83.00, BUN/Creatinine Ratio 21.88, Glucose 111.3 H, Calcium 8.75, Total Bilirubin 0.64, AST 17.6, ALT 15.7, Alkaline Phosphatase 74.1, Total Protein 5.84 L, Albumin 3.54, Globulin 2.30, Albumin/Globulin Ratio 1.53 09/21/21 04:56: WBC 6.79, RBC 3.28 L, Hgb 9.9 L, Hct 29.3 L, MCV 89.3, MCH 30.2, MCHC 33.8, RDW Coeff of Sharon 12.8, Plt Count 193, Immature Gran % (Auto) 0.4, Neut % (Auto) 60.3, Lymph % (Auto) 27.2, [place] % (Auto) 10.2 H, Eos % (Auto) 1.5, Baso % (Auto) 0.4, Neut # (Auto) 4.1, Lymph # (Auto) 1.9, [place] # (Auto) 0.7, Eos # (Auto) 0.1, Baso # (Auto) 0.0, Immature Gran # (Auto) 0.0 ASSESSMENT: Please see below. 1. Hyponatremia, improved 2. Generalized pain 3. Anxiety 4. Chronic anemia 5. COPD 6. Noncompliance with medications, followups and lifestyle. PLAN: 1. Discharge home 2. The patient refused to go to [facility] or other behavioral health facilities. 3. Has an appointment with Dr. Copeland at 2:45pm this after noon, family will take her 4. Medications remain as they were here. Plan and coordination of the patient's care discussed in the presence of Share[employer] Developer and nurse. SCRIBED BY: Kelly HERCULES scribed while in presence of service performed by Dr. Lacy/Lelo Norman APRN on 09/21/21 ([id number])
[2021-09-21] MEDS: XANAX PO PRN (12:56)
--- NOTE | 2021-09-21 13:07 | PN ---
DATE OF SERVICE: 09/16/21 SUBJECTIVE: The patient was seen and examined. She was hospitalized through the emergency room with multiple medical complaints. Her pain problem is coming from generalized osteoarthritis. The patient is followed by Dr. Copeland and gets shots but she missed the appointment so she has a lot of anxiety related to hardness of hearing. Same situation with Dr. Guo. The patient practically lives by herself and I had a talk with the son. He has agreed that the patient needs somebody to live with her constant bases and take care of her lot of needs. The patient is hospitalized with dehydration and will be given IV fluids, steroids and analgesics. During that time the patient's family wanted her to go to [facility]. We will evaluate and see what kind of requirements that are for this. TIME SPENT: More than 30 minutes. Plan and coordination of the patient's care discussed in the presence of nurse. SUSAN
--- NOTE | 2021-09-21 13:16 | PN ---
DATE OF SERVICE: 09/17/21 SUBJECTIVE: The patient was seen and examined with the Nurse Practitioner. The patient has been stable cardiovascular hagen. No chest pain, no PND and no orthopnea. She has generalized aches and pain as usual. She is heavy smoker and she is morbidly obese. She has multiple medical problems and the patient is followed by psychiatrist for depressed and Dr. Copeland for generalized osteoarthritis. The place at [place] was contacted but they have some requirements to be met. We will be in touch with the family and tell them what the requirements are. Best course for this patient will either Assisted Living or Assisted. The patient has been strongly advised to lose weight. Counseling for diet done. Bariatric center referral declined. Counseling for smoking done. TIME SPENT: More than 30 minutes. Plan and coordination of the patient's care discussed in the presence of nurse. SUSAN
--- NOTE | 2021-09-22 13:20 | PN ---
DATE OF SERVICE: 09/19/21 SUBJECTIVE: 76 year old white female hospitalized with hyponatremia and mild dehydration with paresthesia along with weakness with generalized aches and arthritic type of pain. Anxiety type of symptoms. The patient's condition steadily seems to have improved. She is calm. The patient had call from [facility]. They wanted more detailed history. The patient has history of depression with anxiety syndrome followed by Dr. Guo who is a psychiatrist. The patient's condition lately has worsened. She lives by herself and is hard of hearing that has compounded the problem. She also has severe DJD of the spine and arthritis of the knees. She has fibromyalgia. She is requiring pain management with Percocet, shots in her neck and the back. She missed her appointment with Dr. Copeland that has compounded the problem of anxiety, unable to rest. REVIEW OF SYSTEMS: CONSTITUTIONAL: No night sweats. No fatigue, malaise, lethargy. No fever or chills. HEENT: Eyes: No visual changes. No eye pain. No eye discharge. ENT: No runny nose. No epistaxis. No sinus pain. No sore throat. No odynophagia. No congestion. RESPIRATORY: No cough, no congestion. No hemoptysis. No shortness of breath. CARDIOVASCULAR: No angina symptoms. No CHF symptoms. No atypical chest pain for CAD. No palpitations. No PND. No orthopnea. GASTROINTESTINAL: No abdominal pain. No nausea or vomiting. No diarrhea or constipation. No hematemesis. No hematochezia. GENITOURINARY: No urgency. No frequency. No dysuria. No hematuria. No obstructive symptoms. No discharge. No pain. No significant abnormal bleeding. MUSCULOSKELETAL: No musculoskeletal pain; no joint swelling. NEUROLOGICAL: No headache. No neck pain. No syncope. No seizures. No dizziness. PSYCHIATRIC: Not anxious. No depression. No suicidal thoughts. No homicidal thoughts. SKIN: No rash. No lesions. No wounds. ENDOCRINE: No unexplained weight loss. No weight gain. HEMATOLOGIC/LYMPHATIC: No anemia. No purpura. No petechiae. No prolonged or excessive bleeding. No palpable lymph nodes. PHYSICAL EXAMINATION: VITAL SIGNS: Temperature 97.4, pulse 70, respiratory rate 16, blood pressure 130/80 and pulse ox 99% on 2 liters. HEENT: Head normocephalic, atraumatic. Eyes: Extraocular muscles are intact. Pupils are equal, round and reactive to light and accommodation. Ears: No lesions. Nose appeared normal. Throat: No exudate or erythema. NECK: Supple. No JVD, no carotid bruit. No lymphadenopathy or thyromegaly. LUNGS: Decreased breath sounds with mild wheeze. Percussion note normal. Chest symmetrical. HEART: S1, S2, no S3. No murmurs. No cyanosis or clubbing. No ascites. Pulses: Dorsalis pedis and posterior tibial pulses +1 to +2 bilaterally. ABDOMEN: Soft. Nontender. Bowel sounds active. No CVA tenderness. No mass felt. EXTREMITIES: No edema. Full range of motion of all extremities, equal. NEUROLOGIC: No focal deficit. Cranial nerves II through XII are grossly intact. No headache. No double vision. SKIN: Not dry. Intact. Turgor - normal. LYMPHATIC: No palpable lymph nodes/no lymphedema. MUSCULOSKELETAL: Normal joints with no swelling. Muscle tone is normal. LABS: Hgb 9.8, hct 29, WBC 6,200 normal differential, creatinine 0.7, BUN 19, potassium 4.1. Glucose 119. ASSESSMENT: 1. Anxiety syndrome with depression. At present time the patient is calm. The patient has been started on Cymbalta. Continued on Xanax. PLAN: 1. She has already been started on Percocet for pain. Requiring more pain medication. 2. The patient also counseled to lose weight. Her BMI is 36. The patient also advised to walk on a regular basis. 3. Counseling for smoking done. 4. The dosage need her medication for the generalized anxiety and depression to be adjusted by outpatient unit like [facility]. TIME SPENT: More than 30 minutes. Plan and coordination of the patient's care discussed in the presence of nurse. SUSAN
--- NOTE | 2021-09-22 13:37 | PN ---
DATE OF SERVICE: 09/20/21 SUBJECTIVE: 76 year white female hospitalized with hyponatremia which seems to have resolved. Her sodium is 134 now, practically normal. The patient still continued to have generalized aches and pains. She is hard of hearing. No real anxiety noted at present time. The patient's daughter is in the room and she is agreeable for her to go to [facility] if possible but the patient has an appointment to see Dr. Copeland at 2:45 so she wants her to go over there. The patient is going to be discharged tomorrow. The patient has no suicidal or homicidal ideation tendency. Depression and generalized anxiety is well controlled. The pain sees to be not that well controlled with Percocet but it is going to be left up to Dr. Copeland what to do about her pain medications. All of her complaints about her aches and pains was advised to let Dr. Copeland know. He is also an orthopedic surgeon and deals with the spine problem also. The patient is moving all her extremities with no neurological deficit. She is hard of hearing but oriented to time, place and person. REVIEW OF SYSTEMS: CONSTITUTIONAL: No night sweats. No fatigue, malaise, lethargy. No fever or chills. HEENT: Eyes: No visual changes. No eye pain. No eye discharge. ENT: No runny nose. No epistaxis. No sinus pain. No sore throat. No odynophagia. No congestion. RESPIRATORY: No cough, no congestion. No hemoptysis. No shortness of breath. CARDIOVASCULAR: No angina symptoms. No CHF symptoms. No atypical chest pain for CAD. No palpitations. No PND. No orthopnea. GASTROINTESTINAL: No abdominal pain. No nausea or vomiting. No diarrhea or constipation. No hematemesis. No hematochezia. GENITOURINARY: No urgency. No frequency. No dysuria. No hematuria. No obstructive symptoms. No discharge. No pain. No significant abnormal bleeding. MUSCULOSKELETAL: No musculoskeletal pain; no joint swelling. NEUROLOGICAL: No headache. No neck pain. No syncope. No seizures. No dizziness. PSYCHIATRIC: Not anxious. No depression. No suicidal thoughts. No homicidal thoughts. SKIN: No rash. No lesions. No wounds. ENDOCRINE: No unexplained weight loss. No weight gain. HEMATOLOGIC/LYMPHATIC: No anemia. No purpura. No petechiae. No prolonged or excessive bleeding. No palpable lymph nodes. PHYSICAL EXAMINATION: VITAL SIGNS: Temperature 97, pulse 67, respiratory rate 18, blood pressure 170/86 and pulse ox 98%. HEENT: Head normocephalic, atraumatic. Eyes: Extraocular muscles are intact. Pupils are equal, round and reactive to light and accommodation. Ears: No lesions. Nose appeared normal. Throat: No exudate or erythema. NECK: Supple. No JVD, no carotid bruit. No lymphadenopathy or thyromegaly. LUNGS: Decreased breath sounds with mild wheeze. Clear to auscultation. Percussion note normal. Chest symmetrical. HEART: S1, S2, no S3. No murmurs. No cyanosis or clubbing. No ascites. Pulses: Dorsalis pedis and posterior tibial pulses +1 to +2 bilaterally. ABDOMEN: Soft. Nontender. Bowel sounds active. No CVA tenderness. No mass felt. EXTREMITIES: No edema. Full range of motion of all extremities, equal. NEUROLOGIC: No focal deficit. Cranial nerves II through XII are grossly intact. No headache. No double vision. SKIN: Not dry. Intact. Turgor - normal. LYMPHATIC: No palpable lymph nodes/no lymphedema. MUSCULOSKELETAL: Normal joints with no swelling. Muscle tone is normal. LABS: Hgb 10.2, hct 30, WBC 6,800 normal differential, creatinine 0.5, BUN 15, potassium 3.9. ASSESSMENT: 1. Hyponatremia seems to have resolved 2. Hypokalemia seems to have resolved 3. Generalized anxiety disorder seems to be under control but may require more medications. The patient with generalized anxiety syndrome has also depression from hard of hearing which seems to be her main problem 4. BMI of 26 wit obesity. Diet discussed with the patient. Also advised to walk on a daily basis. PLAN: 1. She has an appointment with Dr. Copeland tomorrow. Strongly advised to keep the appointment. 2. The patient is followed by Dr. Guo a psychiatrist. Strongly advised to have followup with psychiatrist. The problem with seeing the psychiatrist is that she is on telehealth and she is hard of hearing so the presence of one of the family members. The family members to arrange for this type of visit which they haven't been able to. Dr. Guo doesn't want to see the patient because she is not vaccinated for COVID. She is refusing to be vaccinated for COVID. Strongly advised to be vaccinated. 3. The patient has sedentary lifestyle. TIME SPENT: More than 30 minutes. Plan and coordination of the patient's care discussed in the presence of nurse. SUSAN
--- NOTE | 2021-09-24 09:29 | PN ---
DATE OF SERVICE: 09/21/21 SUBJECTIVE: The patient is feeling a lot better. The patient is advised to be up and about BMI is 35, advised to lose weight. Advised to quit smoking. The patient's anxiety is under control. She is under care of Dr. Guo. Strongly advised to see him. The family is going to have to arrange for Telehealth. The patient has an appointment with Dr. Copeland today for pain management. The patient declined to go to [facility]. Discussed with the son and daughter. She says that she would rather go home and live by herself with help. The patient is oriented to time, place and person. The patient will be discharged to followup as an outpatient. Electrolytes are normal. TIME SPENT: More than 30 minutes. Plan and coordination of the patient's care discussed in the presence of nurse. SUSAN
--- NOTE | 2021-09-24 09:30 | PN ---
09/16/21: Level 5 09/17/21: Intermediate 09/18/21: Intermediate 09/19/21: Intermediate 09/20/21: Intermediate 09/21/21: D as in discharge MTDD
--- NOTE | 2021-10-06 11:47 | HP ---
DATE OF SERVICE: 09/16/21 REASON FOR HOSPITALIZATION/HISTORY OF PRESENT ILLNESS: 76 year old white female who complains of burning on the right side of her body. She has been to the ER once in [place] and once here at our facility two times within the past two weeks complaining of pain on the right side. All CAT scans have been negative of her total right side along with her brain and C spine. She depressed and heavy smoker. Her family is unsure about her mental status. PAST MEDICAL HISTORY: Recurrent UTI COPD Oxygen dependent Hypertension Hypothyroidism Obesity GERD Anxiety/Depression for both she sees Dr. Blake Chronic low back pain she sees Dr. Copeland Left hip arthritis Central neuro hearing loss both ears Noncompliance with medications, diet, lifestyle and anxiety Smoker Dependent leg edema PAST SURGICAL HISTORY: Cochlear implant left ear in 2020 Partial hysterectomy Cholecystectomy REVIEW OF SYSTEMS: CONSTITUTIONAL: No night sweats. Fatigue. No fever or chills. HEENT: Eyes: No visual changes. No eye pain. No eye discharge. ENT: No runny nose. No epistaxis. No sinus pain. No sore throat. No odynophagia. No ear pain. No congestion. RESPIRATORY: No cough, no congestion. No hemoptysis. No shortness of breath. CARDIOVASCULAR: No angina symptoms. No CHF symptoms. No atypical chest pain for CAD. No palpitations. No PND. No orthopnea. GASTROINTESTINAL: No abdominal pain. No nausea or vomiting. No diarrhea or constipation. No hematemesis. No hematochezia. GENITOURINARY: No urgency. No frequency. No dysuria. No hematuria. No obstructive symptoms. No discharge. No pain. No significant abnormal bleeding. MUSCULOSKELETAL: No musculoskeletal pain. No joint swelling. No arthritis. Pain to the right side of the body. NEUROLOGICAL: No headache. No neck pain. No syncope. No seizures. No dizziness. PSYCHIATRIC: Anxious. No depression. No suicidal thoughts. No homicidal thoughts. SKIN: No rash. No lesions. No wounds. ENDOCRINE: No unexplained weight loss. No weight gain. HEMATOLOGIC/LYMPHATIC: No anemia. No purpura. No petechiae. No prolonged or excessive bleeding. No palpable lymph nodes. PERSONAL/FAMILY/SOCIAL HISTORY: She is , She lives at home by herself. She is a heavy smoker, denies any alcohol or illicit drug use. MEDICATIONS: Diltiazem 60mg PO BID Aspirin 81mg PO Bedtime Albuterol sulfate two puff inhalation QID PRN Xanax 0.5mg PO TID PRN Synthroid 50mcg PO daily Zanaflex 4mg PO Q 12 hour PRN Protonix 40mg PO QDAC Metformin 500mg PO BID Remeron 7.5mg PO bedtime Percocet 7.5-325mg PO QID PRN Nitrofurantoin 50mg PO QHS Diflucan 200ng PO daily PRN Cefuroxime 500mg PO BID Trelegy Ellipta 200-62.5-25mcg on halation daily Antivert 50mg PO BID PRN Zithromax z-hilda see RX Prednisone 10mg see Rx ALLERGIES: Simvastatin Atorvastatin Rosuvastatin PHYSICAL EXAMINATION: VITAL SIGNS: Temperature 98, heart rate 107, respiratory rate 18, blood pressure 136/87 and pulse ox 93% on 2 liters. HEENT: Head normocephalic, atraumatic. Eyes: Extraocular muscles are intact. Pupils are equal, round and reactive to light and accommodation. Ears: No lesions. Nose appeared normal. Throat: No exudate or erythema. NECK: Supple. No JVD, no carotid bruit. No lymphadenopathy or thyromegaly. LUNGS: Clear to auscultation. Percussion note normal. Chest symmetrical. HEART: S1, S2, no S3. No murmur. No cyanosis or clubbing. No ascites. Pulses: Dorsalis pedis and posterior tibial pulses +1 to +2 bilaterally. ABDOMEN: Soft. Nontender. Bowel sounds active. No CVA tenderness. No mass felt. EXTREMITIES: No edema. Full range of motion of all extremities, equal. NEUROLOGIC: No focal deficit. Cranial nerves II through XII are grossly intact. No headache, no double vision or headache. SKIN: Not dry. Intact. Turgor - normal. LYMPHATIC: No palpable lymph nodes/no lymphedema. MUSCULOSKELETAL: Normal joints with no swelling. Muscle tone is normal. LABS: WBC 9.3, hgb 12.5, hct 35.6, plt count 247, sodium 126, potassium 3.8, BUN 17, creatinine 0.8, glucose 169. Chest x-ray shows changes associated with COPD. Respiratory panel is negative. ASSESSMENT: 1. Hyponatremia 2. Anxiety 3. Right arm pain and paraesthesia 4. Right leg pain and paraesthesia 5. COPD 6. Hypertension PLAN: 1. We will admit 2. Routine telemetry orders 2. CBC and CMP daily 4. Continue home medications 5. U/A 6. Normal saline IV at 75cc an hour 7. Nicotine patch 8. Regular diet 9. Oxygen at 1-2 liters 10.ABG on 2 liters 11.Chest x-ray 12.Will follow closely. TIME SPENT: More than 70 minutes. CHARLESD
--- NOTE | 2021-10-06 12:43 | DS ---
DATE OF SERVICE: 09/21/21 FINAL DIAGNOSIS: 1. Hyponatremia, improved 2. Generalized pain 3. Anxiety 4. Chronic anemia 5. COPD 6. Noncompliance with medications, followups and lifestyle. DISCHARGE INSTRUCTIONS: Discharge home today. Appoint with Dr. Copeland at [facility] 2:[address] Blake for Xanax prescription is 0.5mg MEDICATIONS AT DISCHARGE: Diltiazem 60mg PO BID Aspirin 81mg PO Bedtime Albuterol sulfate two puff inhalation QID PRN Xanax 0.5mg PO TID PRN Synthroid 50mcg PO daily Zanaflex 4mg PO Q 12 hour PRN Protonix 40mg PO QDAC Metformin 500mg PO BID Remeron 7.5mg PO bedtime Percocet 7.5-325mg PO QID PRN Nitrofurantoin 50mg PO QHS Trelegy Ellipta 200-62.5-25mcg on halation daily Antivert 50mg PO BID PRN NEW PRESCRIPTIONS: Cymbalta 30mg PO daily DISCONTINUED MEDICATIONS: Zithromax z-hilda see RX Prednisone 10mg see Rx Diflucan 200ng PO daily PRN Cefuroxime 500mg PO BID DIET INSTRUCTIONS: Resume as tolerated ACTIVITY: Resume as tolerated HOSPITAL COURSE: 76 year old white female who was admitted with acute hyponatremia. She has been in and out of the emergency room several times over the past couple weeks. Her family is concerned about her mental status. She was admitted and complained of pain on her entire right side, described it as a burning pain. Entire workup has been negative. She was placed on normal saline IV at 75cc an hour and given 1cc Decadron IM. Over the course of the next several days her sodium level improved. The family was wanting her to be admitted to a psychiatric facility for her anxiety and depression, noncompliance with medications and followup. We attempted and they wanted to her be placed in [facility] and they did not have a bed available and also said that they did not feel that she was a candidate for inpatient care. We have instructed the family the next placement would be correction as there is no where else other than paying for private in home care where she would have someone administer her medications and take her to her doctors appointments. She missed her last appointment with Dr. Copeland for Pain Management. She has one today which her son is coming to pick her up from the hospital and take her to her appointment. She missed her last appointment with Dr. Guo her psychiatrist. We have instructed her that she needs to followup with all of these appointments. She declined to see Dr. Epstein our local psychiatrist. I did decrease her Xanax to three times a day. She did spend most of her time sleeping here in the hospital. She requested her pain medication as often as she could however she seemed to rest comfortably. We have discussed the importance with the family about regulating her medications. They have refused the correction and the patient refuses to go anywhere but home. All of her testing has been negative. I do think that she needs to exercise and lose weight. We have recommended that she at least try to start with [facility]. She is advised to quit smoking. The patient is very noncompliant. We will discharge her in stable condition. Her hyponatremia has resolved. Her psychiatric status is stable. She is not a danger to herself. There has not been any threat of suicide, no suicidal or homicidal thoughts. She is alert and oriented. We will discharge her in stable condition and followup with her in the office. TIME SPENT: More than 60 minutes. SUSAN
== END 2021-09-21 13:05 | disposition home or self-care (01) | DRG 191 ==
LOC: ED 13:31 → MEDSURG A 16:02
PROVIDERS: ADMIT Internal Medicine; ATTEND Internal Medicine
DX: M54.50 Low back pain, unspecified; E11.9 Type 2 diabetes mellitus without complications; R20.2 Paresthesia of skin; I10 Essential (primary) hypertension; Z91.14 Patient's other noncompliance with medication regimen; M19.90 Unspecified osteoarthritis, unspecified site; F41.9 Anxiety disorder, unspecified; R53.1 Weakness; E86.0 Dehydration; Z91.19 Patient's noncompliance with other medical treatment and regimen; E66.9 Obesity, unspecified; J44.9 Chronic obstructive pulmonary disease, unspecified; D64.9 Anemia, unspecified; Z68.36 Body mass index [BMI] 36.0-36.9, adult; Z79.84 Long term (current) use of oral hypoglycemic drugs; Z99.81 Dependence on supplemental oxygen; F32.A Depression, unspecified; Z91.11 Patient's noncompliance with dietary regimen; Z20.822 Contact with and (suspected) exposure to COVID-19; F17.210 Nicotine dependence, cigarettes, uncomplicated; Z79.899 Other long term (current) drug therapy; M79.601 Pain in right arm; E03.9 Hypothyroidism, unspecified; Z51.81 Encounter for therapeutic drug level monitoring; E87.1 Hypo-osmolality and hyponatremia; M79.604 Pain in right leg

== ENCOUNTER 2021-11-13 18:22 | Inpatient (IN) ==
[2021-11-13] MEDS ORDERED: SOLU-MEDROL 40 MG IVP STA (19:40)
[2021-11-13] MEDS ORDERED: DUONEB NEB STA (19:40)
[2021-11-13] MEDS ORDERED: ZOFRAN 4 MG/2 ML IVP STA (19:45)
[2021-11-13 20:06] LABS: BASOPHILS % (AUTO) 0.2 % (0.0-3.0); EOSINOPHILS % (AUTO) 0.3 % (0.0-7.0); HEMATOCRIT 37.4 % (37.0-47.0); HEMOGLOBIN 13.1 g/dl (12.0-16.0); IMMATURE GRANULOCYTE # (AUTO) 0.1 (0.0-1.0); IMMATURE GRANULOCYTE % (AUTO) 1.5 % (0.0-5.0); LYMPHOCYTES # (AUTO) 0.8 K/uL (0.60-3.4); LYMPHOCYTES % (AUTO) 9.2 (10.0-50.0); MEAN CORPUSCULAR HEMOGLOBIN 30.3 pg (27.0-31.0); MEAN CORPUSCULAR VOLUME 86.4 fl (81.0-99.0); MONOCYTES # (AUTO) 0.8 K/uL (0.4-2.0); NEUTROPHILS # (AUTO) 7.3 K/ul (2.0-6.9); NEUTROPHILS % (AUTO) 79.8 % (42.2-75.2); PLATELET COUNT 276 10^3/uL (140-440); RDW COEFFICIENT OF VARIATION 13.2 % (11.6-14.8); RED BLOOD COUNT 4.33 10^6/ul (4.20-5.40); WHITE BLOOD COUNT 9.16 K/ul (4.6-10.2)
[2021-11-13 20:15] LABS: ALANINE AMINOTRANSFERASE 16.3 U/L (0-35); ALBUMIN 4.54 g/dL (3.5-5.0); ALKALINE PHOSPHATASE 86.6 U/L (53-141); ASPARTATE AMINO TRANSFERASE 24.8 U/L (14-36); BILIRUBIN,TOTAL 1.06 mg/dL (0.2-1.3); BLOOD UREA NITROGEN 36.3 mg/dL (7-17); CALCIUM 9.08 mg/dL (8.4-10.2); CARBON DIOXIDE 25.4 mmol/L (22-30.0); CHLORIDE 93.7 mmol/L (98-107); CREATININE 1.05 mg/dL (0.60-1.30); GLUCOSE 177.1 mg/dL (74-106); LIPASE 17.1 U/L (23-300); POTASSIUM 3.42 mmol/L (3.5-5.1); SODIUM 129.6 mmol/L (134.5-145); TOTAL PROTEIN 7.12 g/dL (6.3-8.2)
[2021-11-13 20:27] LABS: TROPONIN I < 0.012 ng/ml (0.0000-0.120)
--- NOTE | 2021-11-13 20:41 | DI ---
EXAM: Two view chest. HISTORY: Dyspnea. COMPARISON: 09/17/2021 TECHNIQUE: Frontal and lateral views of the chest. FINDINGS: The patient is rotated. Lungs: The lung volumes are normal.Opacity in the right lung base, accentuated by soft tissue attenua tion. There are no suspicious nodules. There is no pneumothorax. Cardiovascular: The heart size and pulmonary vasculature is normal.. The aorta is unremarkable. Luma/Mediastinum: Normal. Osseous structures. Normal for age. IMPRESSION: Right lower lobe opacity has appearance of atelectasis or pneumonia. Findings are accentuated by so ft tissue attenuation.
[2021-11-13 20:45] LABS: BILIRUBIN,URINE Negative (NEGATIVE); CLARITY,URINE Clear (CLEAR); COLOR,URINE Yellow (YELLOW); GLUCOSE, URINE (UA) Negative (NEGATIVE); KETONES,URINE Negative (NEGATIVE); LEUKOCYTE ESTERASE ,URINE Negative (NEGATIVE); NITRITE,URINE Negative (NEGATIVE); PH,URINE 5.5 (5-9); PROTEIN,URINE Trace (NEGATIVE); URINE, BLOOD Negative (NEGATIVE); UROBILINOGEN,URINE 0.2 (0.2)
[2021-11-13 20:51] LABS: BACTERIA,URINE 2+ (NOT PRESENT); MUCUS,URINE TRACE (NOT PRESENT); TRIPLE PHOSPHATE CRYSTAL,UR 1+ (NOT PRESENT)
[2021-11-13 21:36] LABS: BORDETELLA PARAPERTUSSIS (PCR) NOT DETECTED (NOT DETECT); BORDETELLA PERTUSSIS (PCR) NOT DETECTED (NOT DETECT); CHLAMYDIA PNEUMONIAE (PCR) NOT DETECTED (NOT DETECT); CORONAVIRUS 229E (PCR) NOT DETECTED (NOT DETECT); CORONAVIRUS HKU1 (PCR) NOT DETECTED (NOT DETECT); CORONAVIRUS NL63 (PCR) NOT DETECTED (NOT DETECT); CORONAVIRUS OC43 (PCR) NOT DETECTED (NOT DETECT); HUMAN METAPNEUMOVIRUS (PCR) NOT DETECTED (NOT DETECT); HUMAN RHINOVIRUS/ENTEROV (PCR) NOT DETECTED (NOT DETECT); INFLUENZA B (PCR) NOT DETECTED (NOT DETECT); MYCOPLASMA PNEUMONIAE (PCR) NOT DETECTED (NOT DETECT); PARAINFLUENZA VIRUS 1 (PCR) NOT DETECTED (NOT DETECT); PARAINFLUENZA VIRUS 2 (PCR) NOT DETECTED (NOT DETECT); PARAINFLUENZA VIRUS 3 (PCR) NOT DETECTED (NOT DETECT); PARAINFLUENZA VIRUS 4 (PCR) NOT DETECTED (NOT DETECT); RESPIRATORY SYNCYTIAL V (PCR) NOT DETECTED (NOT DETECT); SARS_COV_2 (PCR) NOT DETECTED (NOT DETECT)
[2021-11-13] MEDS ORDERED: ZOSYN 3.375 GM 3.375 GM in SODIUM CHLORIDE 50 ML IV STA (21:36)
[2021-11-13] MEDS: SODIUM CHLORIDE 1,000 ML IV SCH (22:07)
[2021-11-13 22:31] LABS: ADENOVIRUS (PCR) NOT DETECTED (NOT DETECT)
[2021-11-13] MEDS ORDERED: PERCOCET 7.5-325 PO STA (23:05)
[2021-11-13] MEDS ORDERED: SODIUM CHLORIDE 1,000 ML IV STA (23:07)
[2021-11-13] MEDS ORDERED: ZOFRAN TAB PO PRN (23:13)
[2021-11-13] MEDS ORDERED: ZANAFLEX PO PRN (23:13)
[2021-11-13] MEDS ORDERED: ALBUTEROL 0.083% NEB NEB PRN (23:28)
[2021-11-13 23:33] LABS: ABG O2 HGB 93.6 % (95-100); ABG PH 7.46 (7.35-7.45); BEecf 3.2 (-2.0-3.0); COHb 2.4 (0.5-1.5); MetHb 1.5 (0-1.5); TCO2 28.2 (19-24); sO2 95.7 % (94-98)
--- NOTE | 2021-11-13 23:42 | ED.PDOC ---
General ED Provider: Dr. INO BARRON Chief Complaint: Shortness of Air Stated Complaint: Started last nite. No new chest pain . Some cough every day . Smokes 1/2-1 PPD Hx copd hearing deficit , Time Seen by Provider: 11/13/21 19:05 Mode of Arrival: Ambulance Information Source: Patient and EMT Exam Limitations: No limitations Primary Care Provider: SHIRA DIAZ Nursing and Triage Documentation Reviewed and Agree: Yes Does patient meet sepsis criteria?: No System Inflammatory Response Syndrome: Not Applicable Sepsis Protocol: For patient's 13 years and over: Temp is 96.8 and below OR 101 and greater Pulse >90 BPM Resp >20/minute Acutely Altered Mental Status Are patient's symptoms suggestive of a new infection, such as: -Pneumonia -Skin, Soft Tissue -Endocarditis -UTI -Bone, Joint Infection -Implantable Device -Acute Abdominal Infection -Wound Infection -Meningitis -Blood Stream Catheter Infection -Unknown Review of Systems Review Of Systems Constitutional: Reports Malaise and Weakness; Denies Chills or Fever Eyes: Reports No symptoms Ears, Nose, Mouth, Throat: Reports Other (hearing deficit) Respiratory: Reports Short of air Cardiac: Reports No symptoms GI: Reports Nausea and Vomiting (1 time ) : Reports No symptoms Musculoskeletal: Reports Joint pain Skin: Reports No symptoms Neurological: Reports No symptoms Endocrine: Reports No symptoms Hematologic/Lymphatic: Reports No symptoms All Other Systems: Reviewed and Negative [facility] Medical History Arthritis Chronic back pain COPD (chronic obstructive pulmonary disease) Diabetes Elevated cholesterol Hypertension Sensorineural hearing loss (SNHL) of both ears Family History Other Family history unknown Social History Smoking and tobacco status: Current every day smoker Tobacco type: cigarettes Smoking packs per day: 0.5 Smoking cigarettes per day: 10.0 Years smoked: 60 Smoking pack-years: 30.00 History of recent travel: No Surgical History Status post cholecystectomy Status post hysterectomy Female Reproductive History Menstrual Hx Hysterectomy: No Hx Tubal Ligation: No Hx Now: No Physical Exam Physical Exam Appearance: Reports No pain distress Ill-appearing: Mild Pain Distress: Mild Eyes: Reports GUIDO, EOMI and Conjunctiva clear ENT: Reports Ears normal, Nose normal and Oropharynx normal Neck: Supple Respiratory: Reports Airway patent, Breath sounds clear, Breath sounds equal and Breath sounds diminished; Denies Crackles, Rhonchi or Wheezes Cardiovascular: Reports RRR and Pulses normal GI/: Reports Soft and Nontender Musculoskeletal: Reports Normal strength Skin: Reports Warm, Dry and Normal color Neurological: Reports Sensation intact, Motor intact, Reflexes intact, Alert and Oriented Psychiatric: Reports Affect appropriate Interpretation Radiology Interpretation Radiology Interpretation By: Radiologist Radiology Results: Positive Exam Interpreted: CXR Xray Comments: possible RLL infiltrate EKG Interpretation Time of EKG #1: 23:42 Rate: Normal Rhythm: Sinus Ectopy: None ST Segment: Other (non specific ) Physician Notification Case Discussed Physician Notified: Dr Diaz Time of Notification: 12:00 Comments: SBAR - ok for some slow fluids, abg , zosyn ( 1 broud spectrum abx ) morning labs Critical Care Note Critical Care Note Total Critical Care Time (mins): 0 Course Course Hematology/Chemistry: 11/14/21 05:04 11/14/21 05:04 Orders, Labs, Meds: Lab Review 11/13/21 11/13/21 11/13/21 19:40 19:55 19:55 WBC 9.16 RBC 4.33 Hgb 13.1 Hct 37.4 MCV 86.4 MCH 30.3 MCHC 35.0 RDW Coeff of [place] 13.2 Plt Count 276 Immature Gran % (Auto) 1.5 Neut % (Auto) 79.8 H Lymph % (Auto) 9.2 L [place] % (Auto) 9.0 Eos % (Auto) 0.3 Baso % (Auto) 0.2 Neut # (Auto) 7.3 H Lymph # (Auto) 0.8 [place] # (Auto) 0.8 Eos # (Auto) 0.0 Baso # (Auto) 0.0 Immature Gran # (Auto) 0.1 Sodium 129.6 L Potassium 3.42 L Chloride 93.7 L Carbon Dioxide 25.4 Anion Gap 13.92 BUN 36.3 H Creatinine 1.05 Estimated GFR (MDRD) 51.00 BUN/Creatinine Ratio 34.57 Glucose 177.1 H Lactic Acid Calcium 9.08 Total Bilirubin 1.06 AST 24.8 ALT 16.3 Alkaline Phosphatase 86.6 Troponin I < 0.012 NT-Pro-B Natriuret Pep 745.000 H Total Protein 7.12 Albumin 4.54 Globulin 2.58 Albumin/Globulin Ratio 1.75 Lipase 17.1 L Procalcitonin Urine Color Yellow Urine Clarity Clear Urine pH 5.5 Ur Specific [place] >=1.030 Urine Protein Trace H Urine Glucose (UA) Negative Urine Ketones Negative Urine Blood Negative Urine Nitrite Negative Urine Bilirubin Negative Urine Urobilinogen 0.2 Ur Leukocyte Esterase Negative Urine Microscopic WBC 2-5 Ur Squamous Epith Cells 10-20 Triple Phos Crystals 1+ Urine Bacteria 2+ Urine Mucus Trace Adenovirus (PCR) B. pertussis DNA (PCR) B.parapertussis DNA PCR C. pneumoniae DNA (PCR) Coronavirus OC43 (PCR) Coronavirus HKU1 (PCR) Coronavirus 229E (PCR) Coronavirus NL63 (PCR) Human Metapneumovir PCR Influenza Type A (PCR) Influenza B (RT-PCR) M. pneumoniae (PCR) Parainfluenza 1 (PCR) Parainfluenza 2 (PCR) Parainfluenza 3 (PCR) Parainfluenza 4 (PCR) RSV (PCR) Entero/Rhino (PCR) SARS-CoV-2 (PCR) 11/13/21 11/13/21 11/13/21 21:15 21:55 21:55 WBC RBC Hgb Hct MCV MCH MCHC RDW Coeff of [place] Plt Count Immature Gran % (Auto) Neut % (Auto) Lymph % (Auto) [place] % (Auto) Eos % (Auto) Baso % (Auto) Neut # (Auto) Lymph # (Auto) [place] # (Auto) Eos # (Auto) Baso # (Auto) Immature Gran # (Auto) Sodium Potassium Chloride Carbon Dioxide Anion Gap BUN Creatinine Estimated GFR (MDRD) BUN/Creatinine Ratio Glucose Lactic Acid 0.80 Calcium Total Bilirubin AST ALT Alkaline Phosphatase Troponin I NT-Pro-B Natriuret Pep Total Protein Albumin Globulin Albumin/Globulin Ratio Lipase Procalcitonin 0.41 H Urine Color Urine Clarity Urine pH Ur Specific [place] Urine Protein Urine Glucose (UA) Urine Ketones Urine Blood Urine Nitrite Urine Bilirubin Urine Urobilinogen Ur Leukocyte Esterase Urine Microscopic WBC Ur Squamous Epith Cells Triple Phos Crystals Urine Bacteria Urine Mucus Adenovirus (PCR) Not detected B. pertussis DNA (PCR) Not detected B.parapertussis DNA PCR Not detected C. pneumoniae DNA (PCR) Not detected Coronavirus OC43 (PCR) Not detected Coronavirus HKU1 (PCR) Not detected Coronavirus 229E (PCR) Not detected Coronavirus NL63 (PCR) Not detected Human Metapneumovir PCR Not detected Influenza Type A (PCR) Not detected Influenza B (RT-PCR) Not detected M. pneumoniae (PCR) Not detected Parainfluenza 1 (PCR) Not detected Parainfluenza 2 (PCR) Not detected Parainfluenza 3 (PCR) Not detected Parainfluenza 4 (PCR) Not detected RSV (PCR) Not detected Entero/Rhino (PCR) Not detected SARS-CoV-2 (PCR) Not detected Orders Category Date Time Status ADMIT PATIENT [facility]PAT[facility]ED[facility] ADMISSION 11/13/21 22:59 Active ABG DRAW REQUEST Stat CARDIO 11/13/21 23:03 Completed EKG-(ED ONLY) Stat CARDIO 11/13/21 19:45 Completed NEBULIZER TREATMENT Routine CARDIO 11/13/21 23:02 Completed NEBULIZER TREATMENT Stat CARDIO 11/13/21 19:44 Completed OXYGEN Routine CARDIO 11/13/21 23:02 Active PULSE OXIMETRY Routine CARDIO 11/13/21 23:02 Active GIVE HS SNACK 2100 CARE 11/13/21 23:06 Active TELEMETRY MONITORING TELE CARE 11/13/21 22:59 Active 2 GRAM SODIUM DIET DIETARY 11/14/21 Breakfast Ordered ADA 1500 ROWDY. DIET DIETARY 11/14/21 Breakfast Ordered HS SNACK DIETARY 11/13/21 Dinner Ordered ABG COOX Stat LAB 11/13/21 23:28 Completed BLOOD CULTURE (ED ONLY) Stat LAB 11/13/21 21:55 Received CBC W/ AUTO DIFF Stat LAB 11/13/21 19:55 Completed CMP [COMPREHENSIVE METABOLIC PANEL] Stat LAB 11/13/21 19:55 Completed LACTIC ACID Stat LAB 11/13/21 21:55 Completed LIPASE Stat LAB 11/13/21 19:55 Completed NT-PROBNP Stat LAB 11/13/21 19:55 Completed PROCALCITONIN Stat LAB 11/13/21 21:55 Completed RESPIRATORY PANEL 2.1 (PCR) Stat LAB 11/13/21 21:15 Completed TROPONIN I Stat LAB 11/13/21 19:55 Completed URINALYSIS WITH MICROSCOPIC Stat LAB 11/13/21 19:40 Completed URINE CULTURE Stat LAB 11/13/21 19:40 Received Ipratropium/Albuterol Neb [Duoneb] MEDS 11/13/21 19:40 Discontinued 3 ml NEB ONCE STA Methylprednisolone Sod Succ/Pf [Solu-Medrol 40 mg] MEDS 11/13/21 19:40 Discontinued 80 mg IVP ONCE STA Ondansetron HCl/Pf [Zofran 4 mg/2 ml] MEDS 11/13/21 19:45 Discontinued 4 mg IVP ONCE STA Piperacillin Sodium/Tazobactam [Zosyn 3.375 gm] 3.375 MEDS 11/13/21 21:36 Discontinued gm 0.9 % Sodium Chloride [Sodium Chloride] 50 ml IV ONCE Sodium Chloride 0.9% [Sodium Chloride] 1,000 ml MEDS 11/13/21 22:30 Active IV KVO CHEST, 2 VIEWS PA & LAT Stat RADS 11/13/21 19:40 Completed Medications Generic Name Dose Route Start Last Admin Trade Name Freq PRN Reason Stop Dose Admin Albuterol Sulfate 2.5 mg 11/13/21 23:28 Albuterol Sulfate 0.083% Vial.Neb NEB RTTID PRN prn q 2 hrs Alprazolam 0.5 mg 11/13/21 23:13 11/14/21 00:25 Alprazolam 0.5 Mg Tablet PO 0.5 mg TID PRN Administration Anxiety Aspirin 81 mg 11/14/21 21:00 Aspirin 81 Mg Tablet. PO BEDTIME NAMAN Gabapentin 300 mg 11/14/21 09:00 Gabapentin 300 Mg Capsule PO TID NAMAN Sodium Chloride 1,000 mls @ 50 mls/hr 11/13/21 22:30 11/14/21 00:24 Sodium Chloride IV 50 mls/hr KVO NAMAN Administration Sodium Chloride 1,000 mls @ 50 mls/hr 11/13/21 23:07 11/14/21 00:27 Sodium Chloride IV 11/14/21 19:06 Not Given .Q20H STA Piperacillin Sod/Tazobactam 50 mls @ 50 mls/hr 11/13/21 23:30 11/14/21 04:32 Sod 3.375 gm/ Sodium Chloride IV 11/16/21 23:29 50 mls/hr Q6H NAMAN Administration Levothyroxine Sodium 50 mcg 11/14/21 06:00 11/14/21 05:05 Levothyroxine Sodium 50 Mcg Tablet PO 50 mcg DAILY NAMAN Administration Losartan Potassium 25 mg 11/14/21 21:00 Losartan Potassium 25 Mg Tablet PO BEDTIME NAMAN Metformin HCl 500 mg 11/13/21 23:30 11/14/21 00:24 Metformin Hcl 500 Mg Tablet PO 500 mg BID NAMAN Administration Non-Formulary Medication 60 mg 11/14/21 09:00 Diltiazem Hcl PO BID NAMAN Non-Formulary Medication 1 inh 11/14/21 09:00 [id number] [Trelegy Ellipta] IH DAILY NAMAN Ondansetron HCl 4 mg 11/13/21 23:13 Ondansetron Hcl 4 Mg Tablet PO DAILY PRN Motion Sickness Oxybutynin Chloride 5 mg 11/13/21 23:30 11/14/21 00:24 Oxybutynin Chloride 5 Mg Tablet PO 5 mg TID NAMAN Administration Oxycodone/Acetaminophen 1 tab 11/13/21 23:13 Oxycodone/Acetaminophen 7.5/325 Mg Tablet PO QID PRN Pain Pravastatin Sodium 80 mg 11/14/21 09:00 Pravastatin Sodium 40 Mg Tablet PO DAILY NAMAN Tizanidine HCl 4 mg 11/13/21 23:13 Tizanidine Hcl 4 Mg Tablet PO DIRECTED PRN MODERATE PAIN Discontinued Medications Generic Name Dose Route Start Last Admin Trade Name Freq PRN Reason Stop Dose Admin Albuterol/Ipratropium 3 ml 11/13/21 19:40 11/13/21 20:00 Ipratropium/Albuterol Vial.Neb NEB 11/13/21 19:41 3 ml ONCE STA Administration Piperacillin Sod/Tazobactam 50 mls @ 50 mls/hr 11/13/21 21:36 11/13/21 22:08 Sod 3.375 gm/ Sodium Chloride IV 11/13/21 22:35 50 mls/hr ONCE STA Administration Methylprednisolone Sodium Succinate 80 mg 11/13/21 19:40 11/13/21 19:56 Methylprednisolone Sod Succ/Pf 40 Mg/Ml Vial IVP 11/13/21 19:41 80 mg ONCE STA Administration Ondansetron HCl 4 mg 11/13/21 19:45 11/13/21 19:57 Ondansetron Hcl/Pf 4 Mg/2 Ml Sdv IVP 11/13/21 19:46 4 mg ONCE STA Administration Oxycodone/Acetaminophen 1 tab 11/13/21 23:05 11/13/21 23:12 Oxycodone/Acetaminophen 7.5/325 Mg Tablet PO 11/13/21 23:06 1 tab ONCE STA Administration Vital Signs: Temp Pulse Resp BP Pulse Ox 11/13/21 22:44 118/80 96 11/13/21 18:23 98.8 F 104 H 20 127/82 95 Discharge Plan Discharge Patient Disposition: ADMITTED INPATIENT Discharge Problem: Acute exacerbation of chronic obstructive pulmonary disease, Pneumonia ED Provider: INO BARRON Condition: Fair Physician Progress Note: []BNP elevated yet chx neg and ne pitting edema or crackles. Pt herself felt dry due to lack of po intake from not feeling well Pt agrees with plan Abx and fluids and additional labs started in the ED . Pt remains stable Discussed smoking cessation earlier.
[2021-11-14] MEDS: ZOSYN 3.375 GM 3.375 GM in SODIUM CHLORIDE 50 ML IV SCH ×2 (00:14→04:32)
[2021-11-14 00:24] VITALS: BMI 36.5
[2021-11-14] MEDS: DITROPAN PO SCH ×4 (00:24→20:28)
[2021-11-14] MEDS: GLUCOPHAGE PO SCH ×3 (00:24→20:28)
[2021-11-14] MEDS: SODIUM CHLORIDE 1,000 ML IV SCH ×2 (00:24→19:43)
[2021-11-14] MEDS: XANAX PO PRN ×2 (00:25→22:40)
[2021-11-14] MEDS: SYNTHROID PO SCH ×2 (05:05→08:57)
[2021-11-14 05:30] LABS: BASOPHILS % (AUTO) 0.3 % (0.0-3.0); EOSINOPHILS % (AUTO) 0.2 % (0.0-7.0); HEMATOCRIT 36.8 % (37.0-47.0); HEMOGLOBIN 12.8 g/dl (12.0-16.0); IMMATURE GRANULOCYTE # (AUTO) 0.1 (0.0-1.0); IMMATURE GRANULOCYTE % (AUTO) 1.7 % (0.0-5.0); LYMPHOCYTES # (AUTO) 0.7 K/uL (0.60-3.4); LYMPHOCYTES % (AUTO) 10.4 (10.0-50.0); MEAN CORPUSCULAR HEMOGLOBIN 30.2 pg (27.0-31.0); MEAN CORPUSCULAR HGB CONC 34.8 (31.8-35.4); MEAN CORPUSCULAR VOLUME 86.8 fl (81.0-99.0); MONOCYTES # (AUTO) 0.1 K/uL (0.4-2.0); NEUTROPHILS # (AUTO) 5.4 K/ul (2.0-6.9); NEUTROPHILS % (AUTO) 85.4 % (42.2-75.2); PLATELET COUNT 266 10^3/uL (140-440); RDW COEFFICIENT OF VARIATION 13.3 % (11.6-14.8); RED BLOOD COUNT 4.24 10^6/ul (4.20-5.40); WHITE BLOOD COUNT 6.36 K/ul (4.6-10.2)
[2021-11-14 05:45] LABS: BLOOD UREA NITROGEN 43.6 mg/dL (7-17); CALCIUM 8.88 mg/dL (8.4-10.2); CARBON DIOXIDE 24.8 mmol/L (22-30.0); CHLORIDE 96.3 mmol/L (98-107); CREATININE 1.14 mg/dL (0.60-1.30); POTASSIUM 3.6 mmol/L (3.5-5.1); SODIUM 131.9 mmol/L (134.5-145)
[2021-11-14] MEDS ORDERED: SYNTHROID PO SCH (09:00)
[2021-11-14] MEDS ORDERED: DILTIAZEM HCL 60 MG PO SCH (09:00)
[2021-11-14] MEDS: PRAVACHOL PO SCH (09:01)
[2021-11-14] MEDS: NEURONTIN PO SCH ×3 (09:01→20:28)
[2021-11-14] MEDS: ZANAFLEX PO SCH ×2 (09:01→17:24)
[2021-11-14] MEDS: NON-FORMULARY MEDICATION (Fluticasone-Umeclidin-Vilanter [Trelegy Ellipta] 200-62.5-25 mcg IH SCH (09:02)
[2021-11-14] MEDS: CARDIZEM PO SCH ×2 (09:06→20:27)
[2021-11-14] MEDS: PERCOCET 7.5-325 PO PRN ×3 (09:16→21:39)
[2021-11-14] MEDS ORDERED: ZOSYN 4.5 GM 4.5 GM in SODIUM CHLORIDE 100ML 100 ML IV SCH (12:00)
[2021-11-14] MEDS: DECADRON IM SCH (13:02)
[2021-11-14] MEDS: DUONEB NEB SCH ×2 (14:10→19:52)
[2021-11-14] MEDS: CARAFATE PO SCH ×2 (17:23→20:28)
[2021-11-14] MEDS: PROTONIX PO SCH (17:24)
[2021-11-14] MEDS: ASPIRIN EC PO SCH (20:28)
[2021-11-14] MEDS: ROCEPHIN 1 GM/50 ML D5W 1 GM/50 ML BAG IV SCH (20:28)
[2021-11-14] MEDS: COZAAR PO SCH (20:28)
[2021-11-15] MEDS: ZANAFLEX PO SCH ×3 (00:10→16:30)
[2021-11-15] MEDS: DUONEB NEB SCH ×4 (05:05→19:24)
[2021-11-15 05:26] LABS: BASOPHILS % (AUTO) 0.1 % (0.0-3.0); EOSINOPHILS % (AUTO) 0.3 % (0.0-7.0); HEMATOCRIT 32.6 % (37.0-47.0); HEMOGLOBIN 11.2 g/dl (12.0-16.0); IMMATURE GRANULOCYTE # (AUTO) 0.1 (0.0-1.0); IMMATURE GRANULOCYTE % (AUTO) 1.4 % (0.0-5.0); LYMPHOCYTES # (AUTO) 1.3 K/uL (0.60-3.4); LYMPHOCYTES % (AUTO) 16.7 (10.0-50.0); MEAN CORPUSCULAR HEMOGLOBIN 29.9 pg (27.0-31.0); MEAN CORPUSCULAR HGB CONC 34.4 (31.8-35.4); MEAN CORPUSCULAR VOLUME 87.2 fl (81.0-99.0); MONOCYTES # (AUTO) 0.7 K/uL (0.4-2.0); MONOCYTES % (AUTO) 8.9 (0-10); NEUTROPHILS # (AUTO) 5.7 K/ul (2.0-6.9); NEUTROPHILS % (AUTO) 72.6 % (42.2-75.2); PLATELET COUNT 257 10^3/uL (140-440); RDW COEFFICIENT OF VARIATION 13.2 % (11.6-14.8); RED BLOOD COUNT 3.74 10^6/ul (4.20-5.40); WHITE BLOOD COUNT 7.84 K/ul (4.6-10.2)
[2021-11-15 05:41] LABS: BLOOD UREA NITROGEN 42.1 mg/dL (7-17); CALCIUM 8.87 mg/dL (8.4-10.2); CARBON DIOXIDE 21.7 mmol/L (22-30.0); CHLORIDE 101.5 mmol/L (98-107); CREATININE 0.73 mg/dL (0.60-1.30); GLUCOSE 173.2 mg/dL (74-106)
[2021-11-15] MEDS: PROTONIX PO SCH ×2 (05:48→16:30)
[2021-11-15] MEDS: CARAFATE PO SCH ×4 (05:48→20:38)
[2021-11-15 05:56] LABS: TROPONIN I < 0.012 ng/ml (0.0000-0.120)
[2021-11-15] MEDS: PERCOCET 7.5-325 PO PRN ×3 (07:54→20:37)
[2021-11-15] MEDS: PRAVACHOL PO SCH (08:58)
[2021-11-15] MEDS: CARDIZEM PO SCH ×2 (08:58→20:38)
[2021-11-15] MEDS: SYNTHROID PO SCH (08:58)
[2021-11-15] MEDS: DITROPAN PO SCH ×3 (08:59→20:39)
[2021-11-15] MEDS: DECADRON IM SCH (08:59)
[2021-11-15] MEDS: NEURONTIN PO SCH ×3 (08:59→20:39)
[2021-11-15] MEDS: NON-FORMULARY MEDICATION (Fluticasone-Umeclidin-Vilanter [Trelegy Ellipta] 200-62.5-25 mcg IH SCH (08:59)
[2021-11-15] MEDS: GLUCOPHAGE PO SCH ×2 (08:59→20:39)
[2021-11-15] MEDS: XANAX PO PRN ×2 (09:11→20:37)
[2021-11-15] MEDS: SODIUM CHLORIDE 1,000 ML IV SCH (15:39)
[2021-11-15] MEDS: COZAAR PO SCH (20:38)
[2021-11-15] MEDS: ROCEPHIN 1 GM/50 ML D5W 1 GM/50 ML BAG IV SCH (20:39)
[2021-11-15] MEDS: ASPIRIN EC PO SCH (20:44)
[2021-11-16] MEDS: ZANAFLEX PO SCH ×2 (00:43→09:14)
[2021-11-16] MEDS: DUONEB NEB SCH ×2 (04:45→10:16)
[2021-11-16 05:19] VITALS: BP 113/62; TEMP 97.8
[2021-11-16 05:29] LABS: BASOPHILS % (AUTO) 0.4 % (0.0-3.0); HEMATOCRIT 32.5 % (37.0-47.0); HEMOGLOBIN 11.1 g/dl (12.0-16.0); IMMATURE GRANULOCYTE # (AUTO) 0.1 (0.0-1.0); IMMATURE GRANULOCYTE % (AUTO) 1.6 % (0.0-5.0); LYMPHOCYTES # (AUTO) 1.8 K/uL (0.60-3.4); MEAN CORPUSCULAR HEMOGLOBIN 30.2 pg (27.0-31.0); MEAN CORPUSCULAR HGB CONC 34.2 (31.8-35.4); MEAN CORPUSCULAR VOLUME 88.3 fl (81.0-99.0); MONOCYTES # (AUTO) 0.6 K/uL (0.4-2.0); MONOCYTES % (AUTO) 8.4 (0-10); NEUTROPHILS # (AUTO) 4.8 K/ul (2.0-6.9); NEUTROPHILS % (AUTO) 64.6 % (42.2-75.2); PLATELET COUNT 256 10^3/uL (140-440); RDW COEFFICIENT OF VARIATION 13.2 % (11.6-14.8); RED BLOOD COUNT 3.68 10^6/ul (4.20-5.40); WHITE BLOOD COUNT 7.36 K/ul (4.6-10.2)
[2021-11-16 05:46] LABS: ALANINE AMINOTRANSFERASE 18.3 U/L (0-35); ALBUMIN 3.88 g/dL (3.5-5.0); ALKALINE PHOSPHATASE 71.4 U/L (53-141); BILIRUBIN,TOTAL 0.66 mg/dL (0.2-1.3); BLOOD UREA NITROGEN 31.5 mg/dL (7-17); CALCIUM 9.1 mg/dL (8.4-10.2); CARBON DIOXIDE 23.3 mmol/L (22-30.0); CREATININE 0.76 mg/dL (0.60-1.30); GLUCOSE 152.1 mg/dL (74-106); POTASSIUM 4.31 mmol/L (3.5-5.1); SODIUM 134.8 mmol/L (134.5-145); TOTAL PROTEIN 6.21 g/dL (6.3-8.2)
[2021-11-16] MEDS: CARAFATE PO SCH ×2 (05:46→11:13)
[2021-11-16] MEDS: PROTONIX PO SCH (05:46)
[2021-11-16] MEDS: NON-FORMULARY MEDICATION (Fluticasone-Umeclidin-Vilanter [Trelegy Ellipta] 200-62.5-25 mcg IH SCH (08:57)
[2021-11-16] MEDS ORDERED: SYMBICORT 160-4.5 MCG INHALER IH SCH (09:00)
[2021-11-16] MEDS: DECADRON IM SCH (09:01)
[2021-11-16] MEDS: CARDIZEM PO SCH (09:01)
[2021-11-16] MEDS: DITROPAN PO SCH (09:02)
[2021-11-16] MEDS: NEURONTIN PO SCH (09:03)
[2021-11-16] MEDS: PERCOCET 7.5-325 PO PRN (09:03)
[2021-11-16] MEDS: GLUCOPHAGE PO SCH (09:03)
[2021-11-16] MEDS: SYNTHROID PO SCH (09:04)
[2021-11-16] MEDS: PRAVACHOL PO SCH (09:04)
[2021-11-16] MEDS: XANAX PO PRN (09:15)
--- NOTE | 2021-11-16 09:27 | PCM.PROG ---
Attending Provider: ATTENDING PROVIDER: Dr. SHIRA DIAZ This patient is seen with Lelo Norman, Nurse Practitioner. DATE OF SERVICE: 11/16/21 SUBJECTIVE: This 76 year old /WHITE F was hospitalized 11/13/21. The patient is up and about ready to go home today. Shortness of breath has improved, sating around 98% on room air. She has an appointment with Ortho tomorrow states she is ready to go home. She is eating well, no fever. REVIEW OF SYSTEMS: CONSTITUTIONAL: No night sweats. No fatigue, malaise, lethargy. No fever or chills. HEENT: Eyes: No visual changes. No eye pain. No eye discharge. ENT: No runny nose. No epistaxis. No sinus pain. No odynophagia. No congestion. RESPIRATORY: Cough, no congestion. No hemoptysis. No shortness of breath. CARDIOVASCULAR: No angina symptoms. No CHF symptoms. No atypical chest pain for CAD. No palpitations. No orthopnea.. GASTROINTESTINAL: No abdominal pain. No nausea or vomiting. No diarrhea or constipation. No hematemesis. No hematochezia. GENITOURINARY: No urgency. No frequency. No dysuria. No hematuria. No obstructi ve symptoms. No discharge. No pain. No significant abnormal bleeding. MUSCULOSKELETAL: No musculoskeletal pain; no joint swelling. NEUROLOGICAL: Awake, alert, oriented to time, place and person. No headache. No neck pain. No syncope. No seizures. No dizziness. PSYCHIATRIC: Not anxious. No depression. No suicidal thoughts. No homicidal thoughts. SKIN: No rash. No lesions. No wounds. ENDOCRINE: No unexplained weight loss. No weight gain. HEMATOLOGIC/LYMPHATIC: No anemia. No purpura. No petechiae. No prolonged or excessive bleeding. No palpable lymph nodes. PHYSICAL EXAMINATION: GENERAL: The patient is awake, alert and oriented, sitting in bed in no distress. VITAL SIGNS: Temperature 97.8 F, Pulse 60, Respiratory Rate 20, BP 113/62, Pulse Ox 98% HEENT: Head normocephalic, atraumatic. Eyes: Extraocular muscles are intact. Pupils are equal, round and reactive to light and accommodation. Ears: No lesions. Nose appeared normal. Throat: No exudate or erythema. NECK: Supple. No JVD, no carotid bruit. No lymphadenopathy or thyromegaly. LUNGS: Diminished breath sounds Clear to auscultation. Percussion note normal. Chest symmetrical. HEART: S1, S2, no S3. No murmurs. No cyanosis or clubbing. No ascites. Pulses: Dorsalis pedis and posterior tibial pulses +1 to +2 both sides. ABDOMEN: Soft. Non-tender. Bowel sounds active. No CVA tenderness. No mass felt. EXTREMITIES: No edema. Full range of motion of all extremities, equal. NEUROLOGIC: No focal deficit. Cranial nerves II through XII are grossly intact. No headache. No double vision. SKIN: Not dry. Intact. Turgor-normal. LYMPHATIC: No palpable lymph nodes/no lymphedema. MUSCULOSKELETAL: Normal joints with no swelling. Muscle tone is normal. LAB REVIEW: 11/16/21 04:53 11/16/21 04:53 11/16/21 04:53: Sodium 134.8, Potassium 4.31, Chloride 102.0, Carbon Dioxide 23 .3, Anion Gap 13.81, BUN 31.5 H, Creatinine 0.76, Estimated GFR (MDRD) 74.00, BUN/Creatinine Ratio 41.44, Glucose 152.1 H, Calcium 9.10, Total Bilirubin 0.66, AST 21.0, ALT 18.3, Alkaline Phosphatase 71.4, Total Protein 6.21 L, Albumin 3.88, Globulin 2.33, Albumin/Globulin Ratio 1.66 11/16/21 04:53: WBC 7.36, RBC 3.68 L, Hgb 11.1 L, Hct 32.5 L, MCV 88.3, MCH 30.2, MCHC 34.2, RDW Coeff of [place] 13.2, Plt Count 256, Immature Gran % (Auto) 1.6, Neut % (Auto) 64.6, Lymph % (Auto) 25.0, [place] % (Auto) 8.4, Eos % (Auto) 0.0, Baso % (Auto) 0.4, Neut # (Auto) 4.8, Lymph # (Auto) 1.8, [place] # (Auto) 0.6, Eos # (Auto) 0.0, Baso # (Auto) 0.0, Immature Gran # (Auto) 0.1 ASSESSMENT: Please see below. 1. Acute pneumonitis 2. Severe COPD 3. Hard of hearing 4. Hypertension 5. Anxiety 6. Noncompliance with medications, followup and recommendations. PLAN: 1. Discharge home 2. Omnicef 300mg BID for 10 days 3. Prednisone 20mg PO BID For 3 days, daily for 4 days 4. Resume NEBS and inhalers at home 5. Followup in office next week. Plan and coordination of the patient's care discussed in the presence of Abstract Manager and nurse. SCRIBED BY: Kelly HERCULES scribed while in presence of service performed by Dr. Diaz/Lelo Norman APRN on 11/16/21 ([id number])
[2021-11-16] MEDS ORDERED: ROCEPHIN 1 GM/50 ML D5W 1 GM/50 ML BAG IV SCH ×2 (10:30→21:00)
--- NOTE | 2021-11-17 12:57 | PN ---
DATE OF SERVICE: 11/15/21 SUBJECTIVE: 76 year old white female hospitalized with pneumonia. The patient's condition has improved. She is resting. REVIEW OF SYSTEMS: CONSTITUTIONAL: No night sweats. No fatigue, malaise, lethargy. No fever or chills. HEENT: Eyes: No visual changes. No eye pain. No eye discharge. ENT: No runny nose. No epistaxis. No sinus pain. No sore throat. No odynophagia. No congestion. RESPIRATORY: No cough, no congestion. No hemoptysis. No shortness of breath. CARDIOVASCULAR: No angina symptoms. No CHF symptoms. No atypical chest pain for CAD. No palpitations. No PND. No orthopnea. GASTROINTESTINAL: No abdominal pain. No nausea or vomiting. No diarrhea or constipation. No hematemesis. No hematochezia. Appetite is normal. GENITOURINARY: No urgency. No frequency. No dysuria. No hematuria. No obstructive symptoms. No discharge. No pain. No significant abnormal bleeding. MUSCULOSKELETAL: No musculoskeletal pain; no joint swelling. NEUROLOGICAL: No headache. No neck pain. No syncope. No seizures. No dizziness. PSYCHIATRIC: Not anxious. No depression. No suicidal thoughts. No homicidal thoughts. SKIN: No rash. No lesions. No wounds. ENDOCRINE: No unexplained weight loss. No weight gain. HEMATOLOGIC/LYMPHATIC: No anemia. No purpura. No petechiae. No prolonged or excessive bleeding. No palpable lymph nodes. PHYSICAL EXAMINATION: VITAL SIGNS: Temperature 97.4, pulse 70, respiratory rate 18, blood pressure 100/57, pulse ox 97% with 2 liters. HEENT: Head normocephalic, atraumatic. Eyes: Extraocular muscles are intact. Pupils are equal, round and reactive to light and accommodation. Ears: No lesions. Nose appeared normal. Throat: No exudate or erythema. NECK: Supple. No JVD, no carotid bruit. No lymphadenopathy or thyromegaly. LUNGS: Decreased breath sounds but clear to auscultation. Percussion note normal. Chest symmetrical. HEART: S1, S2, no S3. No murmurs. No cyanosis or clubbing. No ascites. Pulses: Dorsalis pedis and posterior tibial pulses +1 to +2 bilaterally. ABDOMEN: Soft. Nontender. Bowel sounds active. No CVA tenderness. No mass felt. EXTREMITIES: No edema. Full range of motion of all extremities, equal. NEUROLOGIC: No focal deficit. Cranial nerves II through XII are grossly intact. No headache. No double vision. SKIN: Not dry. Intact. Turgor - normal. LYMPHATIC: No palpable lymph nodes/no lymphedema. MUSCULOSKELETAL: Normal joints with no swelling. Muscle tone is normal. LABS: Hgb 11.2, hct 32, WBC 7,800 normal differential, creatinine 0.7, BUN 42, potassium 3.8 ASSESSMENT: 1. COPD Exacerbation/Pneumonia seems to be under control PLAN: 1. Continue NEBS 2. IV antibiotics and steroids 3. Change antibiotic to Rocephin 4. Continue Dexamethasone 5. The patient is overweight and advised to lose now at 20-30 pounds. 6. Advised pulmonary rehab 7. Counseling for smoking done. CONDITION: Stable TIME SPENT: More than 30 minutes. Plan and coordination of the patient's care discussed in the presence of nurse. SUSAN
--- NOTE | 2021-11-25 13:13 | PN ---
DATE OF SERVICE: 11/13/21 SUBJECTIVE: The patient was brought to the emergency room with cough and congestion. The patient has been a frequent visitor of the emergency room. She is has continued to smoke with sedentary lifestyle, severe chronic lung disease, social problem. Told me and explained to me that she has refused to go to the detention and at home she is not being taken care of because of unable to care for herself. The patient is noncompliant of followup, medications, recommendations. REVIEW OF SYSTEMS: CONSTITUTIONAL: No night sweats. No fatigue, malaise, lethargy. No fever or chills. HEENT: Eyes: No visual changes. No eye pain. No eye discharge. ENT: No runny nose. No epistaxis. No sinus pain. No sore throat. No odynophagia. No congestion. RESPIRATORY: No cough, no congestion. No hemoptysis. No shortness of breath. CARDIOVASCULAR: No angina symptoms. No CHF symptoms. No atypical chest pain for CAD. No palpitations. No PND. No orthopnea. GASTROINTESTINAL: No abdominal pain. No nausea or vomiting. No diarrhea or constipation. No hematemesis. No hematochezia. GENITOURINARY: No urgency. No frequency. No dysuria. No hematuria. No obstructive symptoms. No discharge. No pain. No significant abnormal bleeding. MUSCULOSKELETAL: No musculoskeletal pain; no joint swelling. NEUROLOGICAL: No headache. No neck pain. No syncope. No seizures. No dizziness. PSYCHIATRIC: Not anxious. No depression. No suicidal thoughts. No homicidal thoughts. SKIN: No rash. No lesions. No wounds. ENDOCRINE: No unexplained weight loss. No weight gain. HEMATOLOGIC/LYMPHATIC: No anemia. No purpura. No petechiae. No prolonged or excessive bleeding. No palpable lymph nodes. PHYSICAL EXAMINATION: GENERAL: The patient is oriented to time, place and person, lying/sitting in bed in no distress. HEENT: Head normocephalic, atraumatic. Eyes: Extraocular muscles are intact. Pupils are equal, round and reactive to light and accommodation. Ears: No lesions. Nose appeared normal. Throat: No exudate or erythema. NECK: Supple. No JVD, no carotid bruit. No lymphadenopathy or thyromegaly. LUNGS: Decreased breath sounds Clear to auscultation. Percussion note normal. Chest symmetrical. HEART: S1, S2, no S3. No murmurs. No cyanosis or clubbing. No ascites. Pulses: Dorsalis pedis and posterior tibial pulses +1 to +2 bilaterally. ABDOMEN: Soft. Nontender. Bowel sounds active. No CVA tenderness. No mass felt. EXTREMITIES: Trace edema. Full range of motion of all extremities, equal. NEUROLOGIC: No focal deficit. Cranial nerves II through XII are grossly intact. No headache. No double vision. SKIN: Not dry. Intact. Turgor - normal. LYMPHATIC: No palpable lymph nodes/no lymphedema. MUSCULOSKELETAL: Normal joints with no swelling. Muscle tone is normal. LABS: Chest x-ray shows possibility of pneumonia. WBC mildly elevated with shift to the left. PLAN: 1. Hospitalized patient 2. ABG 3. IV fluids, BUN has gone up to 36 with normal creatinine 4. Steroids 5. Antibiotics 6. NEBS Treatment 7. Telemetry TIME SPENT: More than 30 minutes. Plan and coordination of the patient's care discussed in the presence of nurse. SUSAN
--- NOTE | 2021-11-25 13:24 | PN ---
DATE OF SERVICE: 11/14/21 SUBJECTIVE: 76 year old white female hospitalized with pneumonia. The patient has chronic lung disease, heavy smoker. She has sedentary lifestyle. REVIEW OF SYSTEMS: CONSTITUTIONAL: No night sweats. No fatigue, malaise, lethargy. No fever or chills. Feeling better. HEENT: Eyes: No visual changes. No eye pain. No eye discharge. ENT: Hard of hearing. No runny nose. No epistaxis. No sinus pain. No sore throat. No odynophagia. No congestion. RESPIRATORY: No cough, no congestion. No hemoptysis. No shortness of breath. CARDIOVASCULAR: No angina symptoms. No CHF symptoms. No atypical chest pain for CAD. No palpitations. No PND. No orthopnea. GASTROINTESTINAL: No abdominal pain. No nausea or vomiting. No diarrhea or constipation. No hematemesis. No hematochezia.She is eating, no distress. GENITOURINARY: No urgency. No frequency. No dysuria. No hematuria. No obstructive symptoms. No discharge. No pain. No significant abnormal bleeding. MUSCULOSKELETAL: No musculoskeletal pain; no joint swelling. NEUROLOGICAL: No headache. No neck pain. No syncope. No seizures. No dizziness. PSYCHIATRIC: Not anxious. No depression. No suicidal thoughts. No homicidal thoughts. SKIN: No rash. No lesions. No wounds. ENDOCRINE: No unexplained weight loss. No weight gain. HEMATOLOGIC/LYMPHATIC: No anemia. No purpura. No petechiae. No prolonged or excessive bleeding. No palpable lymph nodes. PHYSICAL EXAMINATION: VITAL SIGNS: Temperature 96, pulse 74, respiratory rate 18, blood pressure 110/58 and pulse ox 98%. HEENT: Head normocephalic, atraumatic. Eyes: Extraocular muscles are intact. Pupils are equal, round and reactive to light and accommodation. Ears: No lesions. Nose appeared normal. Throat: No exudate or erythema. NECK: Supple. No JVD, no carotid bruit. No lymphadenopathy or thyromegaly. LUNGS: Decreased breath sounds but clear to auscultation. Percussion note normal. Chest symmetrical. HEART: S1, S2, no S3. No murmurs. No cyanosis or clubbing. No ascites. Pulses: Dorsalis pedis and posterior tibial pulses +1 to +2 bilaterally. ABDOMEN: Soft. Nontender. Bowel sounds active. No CVA tenderness. No mass felt. EXTREMITIES: No edema. Full range of motion of all extremities, equal. NEUROLOGIC: No focal deficit. Cranial nerves II through XII are grossly intact. No headache. No double vision. SKIN: Not dry. Intact. Turgor - normal. LYMPHATIC: No palpable lymph nodes/no lymphedema. MUSCULOSKELETAL: Normal joints with no swelling. Muscle tone is normal. LABS: Hgb 12.8, hct 36, WBC 6,300 normal differential, creatinine 1.1, BUN 43, piotassium 3.6 ASSESSMENT: 1. Pneumonitis with severe chronic lung disease 2. Reflux symptoms PLAN: 1. We will start her on Protonix and Carafate 2. Gastroesophageal reflux disease discussed with the patient 3. Advised to quit smoking, counseling for smoking done 4. We will start the patient on steroids because of chronic lung disease 5. Weight loss diet discussed with the patient 6. Activity discussed with the patient 7. 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 The patient's son had called and according to him and his sister they have trying to get the patient to go to psychiatric center in [place]. The patient had agreed but at the last moment she backed off. She is living by herself with the help of another son. She is taking her medications. She is noncompliant with all aspects of medical care. The patient is oriented to time, place and person. She declined senior living for physical therapy. The patient has generalized osteoarthritis. TIME SPENT: More than 30 minutes. Plan and coordination of the patient's care discussed in the presence of nurse. SUSAN
--- NOTE | 2021-12-15 14:50 | DS ---
DATE OF SERVICE: 11/16/21 FINAL DIAGNOSIS: 1. Acute pneumonitis 2. Severe endstage COPD, oxygen dependent 3. Hard of hearing with cochlear implant 4. Hypertension 5. Anxiety 6. Noncompliance with medications, lifestyle, followup and recommendations. DISCHARGE INSTRUCTIONS: Discharge Home today. Appointment with Dr. Lacy/Lelo Norman, DOCTOR OF NURSE ANESTHESIA November 24 at 2:45pm. MEDICATIONS AT DISCHARGE: Aspirin 81mg PO bedtime ProAir HFA 2 puff inhalation QID PRN Xanax 0.5mg PO TID PRN Synthroid 50mcg PO daily Zanaflex 4mg PO Q 8 hours Metformin 500mg PO BID Remeron 15mg PO Bedtime Percocet 7.5-325 mg PO QID PRN Oxybutynin 5mg PO TID Gabapentin 300mg PO TID Pravastatin 80mg PO daily Ondansetron 4mg PO daily PRN Losartan 25mg PO daily Diltiazem 60mg PO BID NEW PRESCRIPTIONS: OMNICEF 300MG TWICE A DAY FOR 10 DAYS. (ANTIBIOTIC) PREDNISONE 20MG TWICE A DAY FOR 3 DAYS THEN ONCE DAILY FOR 4 DAYS. (STEROID) SYMBICORT INHALER 2 PUFFS TWICE A DAY. DISCONTINUED MEDICATIONS: Trelegy Ellipta Losartan-Hydrochlorothiazide Antivert Prednisone Levofloxacin DIET INSTRUCTIONS: Continue same diet at home ACTIVITY: As tolerated HOSPITAL COURSE: 76 year old white female who presented to the emergency room with cough and shortness of breath. Chest x-ray showed right atelectasis versus pneumonia. She was a heavy smoker. She was started on IV steroids along with IV antibiotics. Today on day of discharge she has been eating well. Oxygen is 98% on room air. Shortness of breath has improved. She has an appointment with Orthopedic tomorrow and she wishes to go home today. She has oxygen at home. Her labs are stable. BUN 31 which is improvement. Hgb stable. She was given IV fluids while she was here. Urine culture was negative. She will discharged home with Omnicef 300mg BID for 10 days, Prednisone 20mg BID for 3 days and then daily for 4 days. She has NEBS at home which she is instructed to do DUONEBS TID. She is to followup with the office next week. TIME SPENT: More than 60 minutes. MTDD
== END 2021-11-16 13:30 | disposition home or self-care (01) | DRG 196 ==
LOC: ED 18:22 → MEDSURG A 23:04
PROVIDERS: ADMIT Internal Medicine; ATTEND Internal Medicine
DX: Z96.21 Cochlear implant status; J98.11 Atelectasis; Z51.81 Encounter for therapeutic drug level monitoring; R06.02 Shortness of breath; Z79.82 Long term (current) use of aspirin; I10 Essential (primary) hypertension; Z91.19 Patient's noncompliance with other medical treatment and regimen; F41.9 Anxiety disorder, unspecified; Z20.822 Contact with and (suspected) exposure to COVID-19; Z60.0 Problems of adjustment to life-cycle transitions; Z72.3 Lack of physical exercise; J44.1 Chronic obstructive pulmonary disease with (acute) exacerbation; Z79.899 Other long term (current) drug therapy; J18.9 Pneumonia, unspecified organism; Z99.81 Dependence on supplemental oxygen; Z91.14 Patient's other noncompliance with medication regimen; J84.114 Acute interstitial pneumonitis; F17.210 Nicotine dependence, cigarettes, uncomplicated

== ENCOUNTER 2022-01-11 09:01 | Observation (INO) ==
--- NOTE | 2022-01-11 09:12 | ED.PDOC ---
General ED Provider: Dr. ANNEMARIE STANFORD Chief Complaint: Shortness of Air Stated Complaint: Hx COPD, having a flare-up with cough and SOA, no chest pain. In assisted living and does not feel like they give her enough help with ADL's. Time Seen by Provider: 01/11/22 09:12 Mode of Arrival: Ambulance Information Source: Patient and EMT Exam Limitations: No limitations Primary Care Provider: SHIRA LACY Nursing and Triage Documentation Reviewed and Agree: Yes Does patient meet sepsis criteria?: No System Inflammatory Response Syndrome: Not Applicable Sepsis Protocol: For patient's 13 years and over: Temp is 96.8 and below OR 101 and greater Pulse >90 BPM Resp >20/minute Acutely Altered Mental Status Are patient's symptoms suggestive of a new infection, such as: -Pneumonia -Skin, Soft Tissue -Endocarditis -UTI -Bone, Joint Infection -Implantable Device -Acute Abdominal Infection -Wound Infection -Meningitis -Blood Stream Catheter Infection -Unknown Respiratory Complaint Exam Shortness of Air Complaint/Exam Onset/Duration: 1 d Symptoms Are: Still present Timing: Constant Initial Severity: Moderate Current Severity: Moderate Character: Reports Dyspnea on exertion Alleviating: Reports Bronchodilators Associated Signs and Symptoms: Reports Cough, Edema, Rapid breathing, Labored breathing and Decreased intake Related History: Reports Similar episode History of Healthcare-Acquired Pneumonia: Lives at [facility] Pulmonary Embolism Risk Factors: Reports None Cardiac Risk Factors: Reports Smoking Pseudomonas Risk Factors: Reports None Tuberculosis Risk Factors: Reports None Home Oxygen Use: No Recent Stress Test: No Recent Echo/LV Function: No Respiratory Distress: Moderate Stridor Present: No Tracheal Deviation: No Accessory Muscle Use: Yes Retractions: Not Present Diminished Breath Sounds: Yes Prolonged Expiratory Phase: Yes Unable to Speak Full Sentences: No Fatigue: Yes Leg Swelling: No Katy's Sign Present: No Grunting Respirations: No Kussmaul Respirations: No Review of Systems Review Of Systems Constitutional: Reports No symptoms Eyes: Reports No symptoms Ears, Nose, Mouth, Throat: Reports No symptoms Respiratory: Reports Cough and Short of air GI: Reports No symptoms : Reports No symptoms Musculoskeletal: Reports No symptoms Skin: Reports No symptoms Neurological: Reports No symptoms Endocrine: Reports No symptoms Hematologic/Lymphatic: Reports No symptoms All Other Systems: Reviewed and Negative [facility] Medical History (Updated 01/11/22 @ 14:48 by ANGELA HERBERT RN) Arthritis Chronic back pain COPD (chronic obstructive pulmonary disease) Diabetes Elevated cholesterol Hypertension Sensorineural hearing loss (SNHL) of both ears Family History (Updated 01/11/22 @ 14:49 by ANGELA HERBERT RN) Other Family history unknown Social History (Updated 01/11/22 @ 14:51 by ANGELA HERBERT RN) Smoking and tobacco status: Current every day smoker Tobacco type: cigarettes Smoking packs per day: 0.5 Smoking cigarettes per day: 10.0 Years smoked: 60 Smoking pack-years: 30.00 Adopted: No Caregiver/support person: Yes Foster care: No Household members: children, friend(s) and caregiver Housing: assisted living facility Marital status: W / Lives independently: No History of recent travel: No Seatbelt use: always Surgical History Status post cholecystectomy Status post hysterectomy Female Reproductive History Menstrual Hx Hysterectomy: No Hx Tubal Ligation: No Physical Exam Physical Exam Appearance: Reports Ill-appearing and Obese Ill-appearing: Mild Pain Distress: Mild Eyes: Reports GUIDO ENT: Reports Oropharynx normal Neck: Supple Respiratory: Reports Airway patent, Breath sounds diminished, Rhonchi and Wheezes Cardiovascular: Reports RRR GI/: Reports Soft and Nontender Musculoskeletal: Reports Limited ROM and Limited strength Skin: Reports Warm and Dry Neurological: Reports Sensation intact, Motor intact and Alert Psychiatric: Reports Affect appropriate and Mood appropriate Interpretation Radiology Interpretation Radiology Interpretation By: Radiologist Radiology Results: No acute changes Exam Interpreted: Portable CXR EKG Interpretation Time of EKG #1: 09:34 Rate: Normal Rhythm: Sinus Ectopy: None [place]: NL ST Segment: Normal Interpretation: WNL Physician Notification Case Discussed Physician Notified: Dr. Lacy Comments: Place in obs for COPD exac Critical Care Note Critical Care Note Total Critical Care Time (mins): 0 Course Course Hematology/Chemistry: 01/13/22 05:15 01/13/22 05:15 Orders, Labs, Meds: Lab Review 01/11/22 01/11/22 01/11/22 09:28 09:28 11:05 WBC 7.21 RBC 3.87 L Hgb 11.6 L Hct 34.4 L MCV 88.9 MCH 30.0 MCHC 33.7 RDW Coeff of [place] 13.5 Plt Count 293 Immature Gran % (Auto) 0.8 Neut % (Auto) 68.4 Lymph % (Auto) 20.2 [place] % (Auto) 6.4 Eos % (Auto) 3.9 Baso % (Auto) 0.3 Neut # (Auto) 4.9 Lymph # (Auto) 1.5 [place] # (Auto) 0.5 Eos # (Auto) 0.3 Baso # (Auto) 0.0 Immature Gran # (Auto) 0.1 Puncture Site Lb Base Excess 6.8 H O2 Saturation 96.5 ABG pH 7.46 H ABG pCO2 43.0 ABG pO2 81.0 L ABG HCO3 30.6 H ABG Total CO2 31.9 H [place] Test Pos Hemoglobin 1.3 Oxyhemoglobin 92.9 L Carboxyhemoglobin 3.4 H Total Hemoglobin 11.6 L O2 Delivery Device Cannula Oxygen Liter Flow 3.50 Sodium 135.7 Potassium 4.27 Chloride 101.1 Carbon Dioxide 26.9 Anion Gap 11.97 BUN 9.4 Creatinine 0.66 Estimated GFR (MDRD) 87.00 BUN/Creatinine Ratio 14.24 Glucose 141.6 H Calcium 9.38 Total Bilirubin 0.75 AST 21.9 ALT 15.2 Alkaline Phosphatase 99.4 Troponin I < 0.012 NT-Pro-B Natriuret Pep 164.000 Total Protein 7.28 Albumin 4.05 Globulin 3.23 Albumin/Globulin Ratio 1.25 SARS CoV-2 RNA Rapid ALIA 01/11/22 11:38 WBC RBC Hgb Hct MCV MCH MCHC RDW Coeff of [place] Plt Count Immature Gran % (Auto) Neut % (Auto) Lymph % (Auto) [place] % (Auto) Eos % (Auto) Baso % (Auto) Neut # (Auto) Lymph # (Auto) [place] # (Auto) Eos # (Auto) Baso # (Auto) Immature Gran # (Auto) Puncture Site Base Excess O2 Saturation ABG pH ABG pCO2 ABG pO2 ABG HCO3 ABG Total CO2 [place] Test Hemoglobin Oxyhemoglobin Carboxyhemoglobin Total Hemoglobin O2 Delivery Device Oxygen Liter Flow Sodium Potassium Chloride Carbon Dioxide Anion Gap BUN Creatinine Estimated GFR (MDRD) BUN/Creatinine Ratio Glucose Calcium Total Bilirubin AST ALT Alkaline Phosphatase Troponin I NT-Pro-B Natriuret Pep Total Protein Albumin Globulin Albumin/Globulin Ratio SARS CoV-2 RNA Rapid ALIA Negative Orders Category Date Time Status ABG DRAW REQUEST Stat CARDIO 01/11/22 10:48 Completed EKG-(ED ONLY) Stat CARDIO 01/11/22 09:16 Completed EKG-(IP & OP ONLY) DAILY CARDIO 01/12/22 06:00 Completed EKG-(IP & OP ONLY) DAILY CARDIO 01/13/22 06:00 Completed NEBULIZER TREATMENT Routine CARDIO 01/11/22 12:45 Active OXYGEN Routine CARDIO 01/11/22 12:36 Active ACTIVITY .BR with BRP CARE 01/11/22 12:36 Active IP: INSERT SALINE LOCK ONCE CARE 01/11/22 12:36 Active TELEMETRY MONITORING TELE CARE 01/11/22 12:36 Active VITAL SIGNS Q8HR CARE 01/11/22 12:36 Active ABG COOX Stat LAB 01/11/22 11:05 Completed CBC W/ AUTO DIFF Stat LAB 01/11/22 09:28 Completed COMPREHENSIVE METABOLIC PANEL Stat LAB 01/11/22 09:28 Completed COVID [SARS COV-2 RNA RAPID ALIA] Stat LAB 01/11/22 11:38 Completed CREATINE KINASE Q8H LAB 01/11/22 20:53 Completed NT-PROBNP Stat LAB 01/11/22 09:28 Completed TROPONIN I Q8H LAB 01/11/22 20:53 Completed TROPONIN I Stat LAB 01/11/22 09:28 Completed URINALYSIS C & S IF INDICATED Stat LAB 01/11/22 14:15 Completed 0.9 % Sodium Chloride [Saline Flush] MEDS 01/11/22 13:00 Active 1 syr IVF Q8HR Albuterol Sulfate 0.083% Neb [Albuterol 0.083% Neb] MEDS 01/11/22 14:00 Active 2.5 mg NEB RTQID Alprazolam [Xanax] MEDS 01/11/22 09:40 Discontinued 0.5 mg PO ONCE ONE Atropine Sulfate Inj [Atropine Sulfate Pfs] MEDS 01/11/22 12:34 Active 0.5 mg IVP ONCE PRN Azithromycin Inj [Zithromax] 500 mg MEDS 01/11/22 12:40 Discontinued 0.9 % Sodium Chloride [Sodium Chloride] 250 ml IV ONCE Ceftriaxone/D5w 1 gm Premix [Rocephin 1 gm/50 ml D5w] MEDS 01/11/22 11:33 Discontinued 1 gm in 50 ml IV ONCE Methylprednisolone Sod Succ/Pf [Solu-Medrol 125 mg] MEDS 01/11/22 11:33 D iscontinued 125 mg IVP ONCE ONE Methylprednisolone Sod Succ/Pf [Solu-Medrol 40 mg] MEDS 01/11/22 15:00 Discontinued 40 mg IVP TID Nitroglycerin [Nitrostat] MEDS 01/11/22 12:34 Active 0.4 mg SL Q5MIN X 3 DOSES PRN CHEST, 1V AP ONLY Stat RADS 01/11/22 09:16 Completed Medications Generic Name Dose Route Start Last Admin Trade Name Dustin PRN Reason Stop Dose Admin Albuterol Sulfate 2.5 mg 01/11/22 14:00 01/13/22 10:19 Albuterol Sulfate 0.083% Vial.Neb NEB Not Given RTQID NAMAN Albuterol Sulfate 2 puff 01/11/22 16:01 Albuterol Sulfate (Ventolin Hfa) 18 Gm 1 Puff With Spacer IH Q6H PRN Bronchodialation Alprazolam 0.5 mg 01/11/22 16:01 01/13/22 09:03 Alprazolam 0.5 Mg Tablet PO 0.5 mg TID PRN Administration Anxiety Alprazolam 0.5 mg 01/12/22 10:25 01/12/22 21:10 Alprazolam 0.5 Mg Tablet PO 0.5 mg ONCE PRN Administration Anxiety Aspirin 81 mg 01/11/22 21:00 01/12/22 21:10 Aspirin 81 Mg Tablet.Dr PO 81 mg BEDTIME NAMAN Administration Atropine Sulfate 0.5 mg 01/11/22 12:34 Atropine Sulfate Inj 1 Mg/10 Ml Disp.Syrin IVP ONCE PRN Symptomatic Bradycardia Budesonide/Formoterol Fumarate 2 puff 01/11/22 21:00 01/13/22 08:37 Budesonide/Formoterol Fumarate 160/4.5 Mcg Inhaler IH 2 puff BID NAMAN Administration Ceftriaxone Sodium 1 gm 01/12/22 09:00 01/13/22 08:36 Ceftriaxone 1 Gm Vial 1 Gm Vial IM 01/15/22 08:59 1 gm DAILY NAMAN Administration Dexamethasone Sodium Phosphate 4 mg 01/12/22 09:00 01/13/22 08:36 Dexamethasone Sod Phos 4 Mg/Ml Inj IM 4 mg DAILY NAMAN Administration Diltiazem HCl 60 mg 01/11/22 21:00 01/13/22 08:36 Diltiazem Hcl 60 Mg Tablet PO 60 mg BID NAMAN Administration Gabapentin 600 mg 01/11/22 21:00 01/12/22 21:10 Gabapentin 300 Mg Capsule PO 600 mg BEDTIME NAMAN Administration HCTZ/Losartan Potassium 1 tab 01/12/22 09:00 01/13/22 08:36 Losartan/Hydrochlorothiazide 50/12.5 Mg Tab PO 1 tab DAILY NAMAN Administration Levothyroxine Sodium 50 mcg 01/12/22 06:30 01/13/22 05:36 Levothyroxine Sodium 50 Mcg Tablet PO 50 mcg QDAC NAMAN Administration Lidocaine HCl 2.1 ml 01/12/22 09:00 01/13/22 08:36 Lidocaine Hcl/Pf 1% 5 Ml Vial IM 2.1 ml DAILY NAMAN Administration Metformin HCl 500 mg 01/11/22 21:00 01/12/22 21:11 Metformin Hcl 500 Mg Tablet PO 500 mg BEDTIME NAMAN Administration Metformin HCl 1,000 mg 01/12/22 08:30 01/13/22 08:36 Metformin Hcl 500 Mg Tablet PO 1,000 mg DAILYWM NAMAN Administration Mirtazapine 7.5 mg 01/11/22 21:00 01/12/22 21:11 Mirtazapine 15 Mg Tablet PO 7.5 mg BEDTIME NAMAN Administration Nitroglycerin 0.4 mg 01/11/22 12:34 Nitroglycerin 0.4 Mg Tab.Subl SL Q5MIN X 3 DOSES PRN Chest Pain Non-Formulary Medication 1 inh 01/12/22 09:00 01/13/22 08:37 [id number] [Trelegy Ellipta] IH Not Given DAILY NAMAN Oxybutynin Chloride 5 mg 01/11/22 21:00 01/13/22 08:36 Oxybutynin Chloride 5 Mg Tablet PO 5 mg TID NAMAN Administration Oxycodone/Acetaminophen 1 tab 01/11/22 15:22 01/13/22 06:17 Oxycodone/Acetaminophen 7.5/325 Mg Tablet PO 1 tab QID PRN Administration Pain Sodium Chloride 1 syr 01/11/22 13:00 01/13/22 05:37 0.9% Sodium Chloride 10 Ml Disp.Syrin IVF Not Given Q8HR NAMAN Tizanidine HCl 4 mg 01/11/22 21:00 01/13/22 05:36 Tizanidine Hcl 4 Mg Tablet PO 4 mg Q8HR NAMAN Administration Discontinued Medications Generic Name Dose Route Start Last Admin Trade Name Dustin PRN Reason Stop Dose Admin Alprazolam 0.5 mg 01/11/22 09:40 01/11/22 09:45 Alprazolam 0.5 Mg Tablet PO 01/11/22 09:41 0.5 mg ONCE ONE Administration CEFTRIAXONE/D5W 1 GM PREMIX 1 gm in 50 mls @ 75 mls/hr 01/11/22 11:33 01/11/22 12:04 Rocephin 1 Gm/50 Ml D5w IV 01/11/22 12:12 75 mls/hr ONCE ONE Administration Azithromycin 500 mg/ Sodium 250 mls @ 125 mls/hr 01/11/22 12:40 01/11/22 16:58 Chloride IV 01/11/22 14:39 125 mls/hr ONCE ONE Administration Methylprednisolone Sodium Succinate 125 mg 01/11/22 11:33 01/11/22 12:04 Methylprednisolone Sod Succ/Pf 125 Mg/2 Ml Vial IVP 01/11/22 11:34 125 mg ONCE ONE Administration Methylprednisolone Sodium Succinate 40 mg 01/11/22 15:00 01/11/22 21:06 Methylprednisolone Sod Succ/Pf 40 Mg/Ml Vial IVP 40 mg TID NAMAN Administration Vital Signs: Temp Pulse Resp BP Pulse Ox 01/11/22 12:11 87 20 137/96 H 97 01/11/22 09:02 98.3 F 87 20 147/103 H 99 Discharge Plan Discharge Patient Disposition: PLACED OBSERVATION ED Provider: ANNEMARIE STANFORD Condition: Good Physician Progress Note: [She wants to come in to the hospital, Obs bed per Dr. Lacy.]
[2022-01-11 09:33] LABS: BASOPHILS % (AUTO) 0.3 % (0.0-3.0); EOSINOPHILS # (AUTO) 0.3 K/ul (0.0-0.7); EOSINOPHILS % (AUTO) 3.9 % (0.0-7.0); HEMATOCRIT 34.4 % (37.0-47.0); HEMOGLOBIN 11.6 g/dl (12.0-16.0); IMMATURE GRANULOCYTE # (AUTO) 0.1 (0.0-1.0); IMMATURE GRANULOCYTE % (AUTO) 0.8 % (0.0-5.0); LYMPHOCYTES # (AUTO) 1.5 K/uL (0.60-3.4); LYMPHOCYTES % (AUTO) 20.2 (10.0-50.0); MEAN CORPUSCULAR HGB CONC 33.7 (31.8-35.4); MEAN CORPUSCULAR VOLUME 88.9 fl (81.0-99.0); MONOCYTES # (AUTO) 0.5 K/uL (0.4-2.0); MONOCYTES % (AUTO) 6.4 (0-10); NEUTROPHILS # (AUTO) 4.9 K/ul (2.0-6.9); NEUTROPHILS % (AUTO) 68.4 % (42.2-75.2); PLATELET COUNT 293 10^3/uL (140-440); RDW COEFFICIENT OF VARIATION 13.5 % (11.6-14.8); RED BLOOD COUNT 3.87 10^6/ul (4.20-5.40); WHITE BLOOD COUNT 7.21 K/ul (4.6-10.2)
[2022-01-11] MEDS ORDERED: XANAX PO ONE (09:40)
[2022-01-11 09:49] LABS: ALANINE AMINOTRANSFERASE 15.2 U/L (0-35); ALBUMIN 4.05 g/dL (3.5-5.0); ALKALINE PHOSPHATASE 99.4 U/L (53-141); ASPARTATE AMINO TRANSFERASE 21.9 U/L (14-36); BILIRUBIN,TOTAL 0.75 mg/dL (0.2-1.3); BLOOD UREA NITROGEN 9.4 mg/dL (7-17); CALCIUM 9.38 mg/dL (8.4-10.2); CARBON DIOXIDE 26.9 mmol/L (22-30.0); CHLORIDE 101.1 mmol/L (98-107); CREATININE 0.66 mg/dL (0.60-1.30); GLUCOSE 141.6 mg/dL (74-106); POTASSIUM 4.27 mmol/L (3.5-5.1); SODIUM 135.7 mmol/L (134.5-145); TOTAL PROTEIN 7.28 g/dL (6.3-8.2)
--- NOTE | 2022-01-11 10:00 | DI ---
EXAM: CHEST FRONTAL VIEW HISTORY: Chronic obstructive pulmonary disease COMPARISON: 12/14/2021 FINDINGS: Prominent heart size is again noted. Patient position is rotated degrading image quality. No definite consolidated pneumonia. No vascular congestion, visible pleural fluid or pneumothorax. IMPRESSION: Limited exam reveals no obvious acute process. If symptoms persist, consider follow up with full inspiration, standing two-view chest radiography using PA and lateral technique.
[2022-01-11 10:01] LABS: TROPONIN I < 0.012 ng/ml (0.0000-0.120)
[2022-01-11 11:12] LABS: ABG O2 HGB 92.9 % (95-100); ABG PH 7.46 (7.35-7.45); BEecf 6.8 (-2.0-3.0); COHb 3.4 (0.5-1.5); HCO3 30.6 (21-28); MetHb 1.3 (0-1.5); TCO2 31.9 (19-24); sO2 96.5 % (94-98); tHb 11.6 g/dl (11.7-17.4)
[2022-01-11] MEDS ORDERED: SOLU-MEDROL 125 MG IVP ONE (11:33)
[2022-01-11] MEDS ORDERED: ROCEPHIN 1 GM/50 ML D5W 1 GM/50 ML BAG IV ONE (11:33)
[2022-01-11] MEDS ORDERED: ATROPINE SULFATE PFS IVP PRN (12:34)
[2022-01-11] MEDS ORDERED: NITROSTAT SL PRN (12:34)
[2022-01-11] MEDS ORDERED: ZITHROMAX 500 MG in SODIUM CHLORIDE 250 ML IV ONE (12:40)
[2022-01-11] MEDS: ALBUTEROL 0.083% NEB NEB SCH ×2 (14:18→19:20)
[2022-01-11 14:42] VITALS: BMI 35.4
[2022-01-11 15:00] LABS: BILIRUBIN,URINE Negative (NEGATIVE); CLARITY,URINE Cloudy (CLEAR); COLOR,URINE Yellow (YELLOW); GLUCOSE, URINE (UA) Negative (NEGATIVE); KETONES,URINE Negative (NEGATIVE); LEUKOCYTE ESTERASE ,URINE Negative (NEGATIVE); NITRITE,URINE Negative (NEGATIVE); PROTEIN,URINE Negative (NEGATIVE); URINE, BLOOD Negative (NEGATIVE); UROBILINOGEN,URINE 0.2 (0.2)
[2022-01-11] MEDS: PERCOCET 7.5-325 PO PRN (15:33)
[2022-01-11] MEDS ORDERED: VENTOLIN HFA (PER PUFF-WITH SPACER) IH PRN (16:01)
[2022-01-11] MEDS: SOLU-MEDROL 40 MG IVP SCH ×2 (16:56→21:06)
[2022-01-11] MEDS: XANAX PO PRN (17:06)
[2022-01-11] MEDS: CARDIZEM PO SCH (20:25)
[2022-01-11] MEDS: ZANAFLEX PO SCH (20:25)
[2022-01-11] MEDS: REMERON PO SCH (20:25)
[2022-01-11] MEDS: ASPIRIN EC PO SCH (20:25)
[2022-01-11] MEDS: NEURONTIN PO SCH (20:25)
[2022-01-11] MEDS: GLUCOPHAGE PO SCH (20:25)
[2022-01-11] MEDS: DITROPAN PO SCH (20:25)
[2022-01-11] MEDS: SYMBICORT 160-4.5 MCG INHALER IH SCH (20:26)
[2022-01-11 21:23] LABS: CREATINE KINASE 70.1 U/L (30-135)
[2022-01-11 21:32] LABS: TROPONIN I < 0.012 ng/ml (0.0000-0.120)
[2022-01-12] MEDS: ALBUTEROL 0.083% NEB NEB SCH ×4 (04:35→19:45)
[2022-01-12] MEDS: PERCOCET 7.5-325 PO PRN ×3 (04:54→17:40)
[2022-01-12 05:20] LABS: HEMOGLOBIN 12.1 g/dl (12.0-16.0); MEAN CORPUSCULAR HEMOGLOBIN 29.7 pg (27.0-31.0); MEAN CORPUSCULAR HGB CONC 33.6 (31.8-35.4); MEAN CORPUSCULAR VOLUME 88.5 fl (81.0-99.0); PLATELET COUNT 284 10^3/uL (140-440); RDW COEFFICIENT OF VARIATION 13.2 % (11.6-14.8); RED BLOOD COUNT 4.07 10^6/ul (4.20-5.40); WHITE BLOOD COUNT 3.53 K/ul (4.6-10.2)
[2022-01-12 05:26] LABS: ANISOCYTOSIS NOT PRESENT (NOT PRESENT)
[2022-01-12 05:34] LABS: ALANINE AMINOTRANSFERASE 19.2 U/L (0-35); ALBUMIN 4.33 g/dL (3.5-5.0); ALKALINE PHOSPHATASE 100.3 U/L (53-141); ASPARTATE AMINO TRANSFERASE 20.4 U/L (14-36); BILIRUBIN,TOTAL 0.46 mg/dL (0.2-1.3); BLOOD UREA NITROGEN 17.6 mg/dL (7-17); CALCIUM 9.52 mg/dL (8.4-10.2); CARBON DIOXIDE 26.9 mmol/L (22-30.0); CHLORIDE 102.4 mmol/L (98-107); CREATININE 0.65 mg/dL (0.60-1.30); POTASSIUM 4.2 mmol/L (3.5-5.1); SODIUM 138.3 mmol/L (134.5-145); TOTAL PROTEIN 7.53 g/dL (6.3-8.2)
[2022-01-12] MEDS: SYNTHROID PO SCH (05:37)
[2022-01-12] MEDS: ZANAFLEX PO SCH ×3 (05:37→21:11)
--- NOTE | 2022-01-12 08:48 | PCM.PROG ---
Attending Provider: ATTENDING PROVIDER: Dr. SHIRA DIAZ This patient is seen with Lelo Norman, Nurse Practitioner. DATE OF SERVICE: 01/12/22 SUBJECTIVE: This 76 year old /WHITE F was hospitalized 01/11/22. Respiratory status has improved this morning. States cough has improved. The patient would like to be discharged. REVIEW OF SYSTEMS: CONSTITUTIONAL: No night sweats. No fatigue, malaise, lethargy. No fever or chills. HEENT: Eyes: No visual changes. No eye pain. No eye discharge. ENT: No runny nose. No epistaxis. No sinus pain. No odynophagia. No congestion. RESPIRATORY: Cough, no congestion. No hemoptysis. Shortness of breath. CARDIOVASCULAR: No angina symptoms. No CHF symptoms. No atypical chest pain for CAD. No palpitations. No orthopnea.. GASTROINTESTINAL: No abdominal pain. No nausea or vomiting. No diarrhea or constipation. No hematemesis. No hematochezia. GENITOURINARY: No urgency. No frequency. No dysuria. No hematuria. No obstructive symptoms. No discharge. No pain. No significant abnormal bleeding. MUSCULOSKELETAL: No musculoskeletal pain; no joint swelling. NEUROLOGICAL: Awake, alert, oriented to time, place and person. No headache. No neck pain. No syncope. No seizures. No dizziness. PSYCHIATRIC: Not anxious. No depression. No suicidal thoughts. No homicidal thoughts. SKIN: No rash. No lesions. No wounds. ENDOCRINE: No unexplained weight loss. No weight gain. HEMATOLOGIC/LYMPHATIC: No anemia. No purpura. No petechiae. No prolonged or excessive bleeding. No palpable lymph nodes. PHYSICAL EXAMINATION: GENERAL: The patient is awake, alert and oriented, sitting in bed in no distress. VITAL SIGNS: Temperature 97.8 F, Pulse 82, Respiratory Rate 18, BP 141/81, Pulse Ox 99% HEENT: Head normocephalic, atraumatic. Eyes: Extraocular muscles are intact. Pupils are equal, round and reactive to light and accommodation. Ears: No lesions. Nose appeared normal. Throat: No exudate or erythema. NECK: Supple. No JVD, no carotid bruit. No lymphadenopathy or thyromegaly. LUNGS: Diminished breath sounds. Clear to auscultation. Percussion note normal. Chest symmetrical. HEART: S1, S2, no S3. No murmurs. No cyanosis or clubbing. No ascites. Pulses: Dorsalis pedis and posterior tibial pulses +1 to +2 both sides. ABDOMEN: Soft. Non-tender. Bowel sounds active. No CVA tenderness. No mass f elt. EXTREMITIES: No edema. Full range of motion of all extremities, equal. NEUROLOGIC: No focal deficit. Cranial nerves II through XII are grossly intact. No headache. No double vision. SKIN: Not dry. Intact. Turgor-normal. LYMPHATIC: No palpable lymph nodes/no lymphedema. MUSCULOSKELETAL: Normal joints with no swelling. Muscle tone is normal. LAB REVIEW: 01/12/22 05:09 01/12/22 05:09 01/12/22 05:09: Sodium 138.3, Potassium 4.20, Chloride 102.4, Carbon Dioxide 26.9, Anion Gap 13.20, BUN 17.6 H, Creatinine 0.65, Estimated GFR (MDRD) 89.00, BUN/Creatinine Ratio 27.07, Glucose 217.0 H D, Calcium 9.52, Total Bilirubin 0.46, AST 20.4, ALT 19.2, Alkaline Phosphatase 100.3, Total Protein 7.53, Albumin 4.33, Globulin 3.20, Albumin/Globulin Ratio 1.35 01/12/22 05:09: WBC 3.53 L, RBC 4.07 L, Hgb 12.1, Hct 36.0 L, MCV 88.5, MCH 29.7, MCHC 33.6, RDW Coeff of [place] 13.2, Plt Count 284, Neutrophils % (Manual) 74.0, Band Neutrophils % 2.0, Lymphocytes % (Manual) 18.0, Monocytes % (Manual) 2.0, Reactive Lymphocytes 4.0, Anisocytosis Not present 01/11/22 20:53: Total Creatine Kinase 70.1, Troponin I < 0.012 01/11/22 14:15: Urine Color Yellow, Urine Clarity Cloudy, Urine pH 7.0, Ur Specific [place] 1.020, Urine Protein Negative, Urine Glucose (UA) Negative, Urine Ketones Negative, Urine Blood Negative, Urine Nitrite Negative, Urine Bilirubin Negative, Urine Urobilinogen 0.2, Ur Leukocyte Esterase Negative 01/11/22 11:38: SARS CoV-2 RNA Rapid ALIA Negative 01/11/22 11:05: Puncture Site Lb, Base Excess 6.8 H, O2 Saturation 96.5, ABG pH 7.46 H, ABG pCO2 43.0, ABG pO2 81.0 L, ABG HCO3 30.6 H, ABG Total CO2 31.9 H, [place] Test Pos, Hemoglobin 1.3, Oxyhemoglobin 92.9 L, Carboxyhemoglobin 3.4 H, Total Hemoglobin 11.6 L, O2 Delivery Device Cannula, Oxygen Liter Flow 3.50 01/11/22 09:28: Sodium 135.7, Potassium 4.27, Chloride 101.1, Carbon Dioxide 26.9, Anion Gap 11.97, BUN 9.4, Creatinine 0.66, Estimated GFR (MDRD) 87.00, BU N/Creatinine Ratio 14.24, Glucose 141.6 H, Calcium 9.38, Total Bilirubin 0.75, AST 21.9, ALT 15.2, Alkaline Phosphatase 99.4, Troponin I < 0.012, NT-Pro-B Natriuret Pep 164.000, Total Protein 7.28, Albumin 4.05, Globulin 3.23, Albumin/Globulin Ratio 1.25 01/11/22 09:28: WBC 7.21, RBC 3.87 L, Hgb 11.6 L, Hct 34.4 L, MCV 88.9, MCH 30.0, MCHC 33.7, RDW Coeff of [place] 13.5, Plt Count 293, Immature Gran % (Auto) 0.8, Neut % (Auto) 68.4, Lymph % (Auto) 20.2, [place] % (Auto) 6.4, Eos % (Auto) 3.9, Baso % (Auto) 0.3, Neut # (Auto) 4.9, Lymph # (Auto) 1.5, [place] # (Auto) 0.5, Eos # (Auto) 0.3, Baso # (Auto) 0.0, Immature Gran # (Auto) 0.1 ASSESSMENT: Please see below. 1. Acute COPD exacerbation 2. Chronic respiratory failure 3. Hypertension PLAN: 1. Continue IV antibiotics and steroids. Plan and coordination of the patient's care discussed in the presence of Research And Development Technician and nurse. SCRIBED BY: TARA ALAS Range Conservationist scribed while in presence of service performed by Dr. Diaz/Lelo Norman APRN on 01/12/22 ([id number])
[2022-01-12] MEDS ORDERED: COZAAR PO SCH (09:00)
[2022-01-12] MEDS ORDERED: ROCEPHIN 1 GM/50 ML D5W 1 GM/50 ML BAG IV SCH (09:00)
[2022-01-12] MEDS: XANAX PO PRN ×2 (09:18→17:21)
[2022-01-12] MEDS: HYZAAR 50-12.5 MG TAB PO SCH (09:18)
[2022-01-12] MEDS: GLUCOPHAGE PO SCH ×2 (09:18→21:11)
[2022-01-12] MEDS: LIDOCAINE HCL 1% SDV IM SCH (09:19)
[2022-01-12] MEDS: DITROPAN PO SCH ×3 (09:19→21:11)
[2022-01-12] MEDS: ROCEPHIN 1 GM VIAL IM SCH (09:19)
[2022-01-12] MEDS: CARDIZEM PO SCH ×2 (09:19→21:10)
[2022-01-12] MEDS: DECADRON IM SCH (09:20)
[2022-01-12] MEDS: SYMBICORT 160-4.5 MCG INHALER IH SCH ×2 (09:35→21:12)
[2022-01-12] MEDS: NON-FORMULARY MEDICATION (Fluticasone-Umeclidin-Vilanter [Trelegy Ellipta] 200-62.5-25 mcg IH SCH (09:36)
[2022-01-12] MEDS ORDERED: XANAX PO PRN (10:25)
[2022-01-12] MEDS: NEURONTIN PO SCH (21:10)
[2022-01-12] MEDS: ASPIRIN EC PO SCH (21:10)
[2022-01-12] MEDS: REMERON PO SCH (21:11)
[2022-01-13] MEDS: ALBUTEROL 0.083% NEB NEB SCH ×2 (04:55→10:19)
[2022-01-13 05:19] VITALS: BP 162/85; TEMP 98
[2022-01-13] MEDS: SYNTHROID PO SCH (05:36)
[2022-01-13] MEDS: ZANAFLEX PO SCH ×2 (05:36→12:59)
[2022-01-13 05:37] LABS: BASOPHILS % (AUTO) 0.4 % (0.0-3.0); EOSINOPHILS % (AUTO) 0.3 % (0.0-7.0); HEMATOCRIT 33.1 % (37.0-47.0); HEMOGLOBIN 10.9 g/dl (12.0-16.0); IMMATURE GRANULOCYTE # (AUTO) 0.1 (0.0-1.0); IMMATURE GRANULOCYTE % (AUTO) 1.4 % (0.0-5.0); LYMPHOCYTES # (AUTO) 1.4 K/uL (0.60-3.4); LYMPHOCYTES % (AUTO) 18.8 (10.0-50.0); MEAN CORPUSCULAR HEMOGLOBIN 29.5 pg (27.0-31.0); MEAN CORPUSCULAR HGB CONC 32.9 (31.8-35.4); MEAN CORPUSCULAR VOLUME 89.7 fl (81.0-99.0); MONOCYTES # (AUTO) 0.5 K/uL (0.4-2.0); MONOCYTES % (AUTO) 6.1 (0-10); NEUTROPHILS # (AUTO) 5.6 K/ul (2.0-6.9); PLATELET COUNT 299 10^3/uL (140-440); RDW COEFFICIENT OF VARIATION 13.4 % (11.6-14.8); RED BLOOD COUNT 3.69 10^6/ul (4.20-5.40); WHITE BLOOD COUNT 7.65 K/ul (4.6-10.2)
[2022-01-13 05:47] LABS: ALBUMIN 4.01 g/dL (3.5-5.0); ASPARTATE AMINO TRANSFERASE 16.3 U/L (14-36); BILIRUBIN,TOTAL 0.36 mg/dL (0.2-1.3); BLOOD UREA NITROGEN 23.9 mg/dL (7-17); CALCIUM 9.62 mg/dL (8.4-10.2); CHLORIDE 102.3 mmol/L (98-107); CREATININE 0.64 mg/dL (0.60-1.30); GLUCOSE 181.8 mg/dL (74-106); POTASSIUM 4.06 mmol/L (3.5-5.1); TOTAL PROTEIN 7.07 g/dL (6.3-8.2)
[2022-01-13] MEDS: PERCOCET 7.5-325 PO PRN ×2 (06:17→13:23)
[2022-01-13] MEDS: DECADRON IM SCH (08:36)
[2022-01-13] MEDS: ROCEPHIN 1 GM VIAL IM SCH (08:36)
[2022-01-13] MEDS: DITROPAN PO SCH (08:36)
[2022-01-13] MEDS: GLUCOPHAGE PO SCH (08:36)
[2022-01-13] MEDS: HYZAAR 50-12.5 MG TAB PO SCH (08:36)
[2022-01-13] MEDS: LIDOCAINE HCL 1% SDV IM SCH (08:36)
[2022-01-13] MEDS: CARDIZEM PO SCH (08:36)
[2022-01-13] MEDS: SYMBICORT 160-4.5 MCG INHALER IH SCH (08:37)
[2022-01-13] MEDS: NON-FORMULARY MEDICATION (Fluticasone-Umeclidin-Vilanter [Trelegy Ellipta] 200-62.5-25 mcg IH SCH (08:37)
[2022-01-13] MEDS: XANAX PO PRN (09:03)
--- NOTE | 2022-01-14 11:01 | PN ---
DATE OF SERVICE: 01/13/22 SUBJECTIVE: 76 year old white female hospitalized with acute pneumonitis and bronchitis. The patient's condition has improved. She wants to go home. She doesn't want to go to the assisted living. She wants to go to her own home. REVIEW OF SYSTEMS: CONSTITUTIONAL: No night sweats. No fatigue, malaise, lethargy. No fever or chills. HEENT: Eyes: No visual changes. No eye pain. No eye discharge. ENT: No runny nose. No epistaxis. No sinus pain. No sore throat. No odynophagia. No congestion. RESPIRATORY: No cough, no congestion. No hemoptysis. No shortness of breath. CARDIOVASCULAR: No angina symptoms. No CHF symptoms. No atypical chest pain for CAD. No palpitations. No PND. No orthopnea. GASTROINTESTINAL: No abdominal pain. No nausea or vomiting. No diarrhea or constipation. No hematemesis. No hematochezia. GENITOURINARY: No urgency. No frequency. No dysuria. No hematuria. No obstructive symptoms. No discharge. No pain. No significant abnormal bleeding. MUSCULOSKELETAL: No musculoskeletal pain; no joint swelling. NEUROLOGICAL: No headache. No neck pain. No syncope. No seizures. No dizziness. PSYCHIATRIC: Not anxious. No depression. No suicidal thoughts. No homicidal thoughts. SKIN: No rash. No lesions. No wounds. ENDOCRINE: No unexplained weight loss. No weight gain. HEMATOLOGIC/LYMPHATIC: No anemia. No purpura. No petechiae. No prolonged or excessive bleeding. No palpable lymph nodes. PHYSICAL EXAMINATION: VITAL SIGNS: Temperature 98, pulse 76, respiratory rate 20, blood pressure 160/85 and pulse ox 99% on 2 liters. HEENT: Head normocephalic, atraumatic. Eyes: Extraocular muscles are intact. Pupils are equal, round and reactive to light and accommodation. Ears: hard of hearing. No lesions. Nose appeared normal. Throat: No exudate or erythema. NECK: Supple. No JVD, no carotid bruit. No lymphadenopathy or thyromegaly. LUNGS: Mild wheeze but good air entry. Percussion note normal. Chest symmetrical. HEART: S1, S2, no S3. No murmurs. No cyanosis or clubbing. No ascites. Pulses: Dorsalis pedis and posterior tibial pulses +1 to +2 bilaterally. ABDOMEN: Soft. Nontender. Bowel sounds active. No CVA tenderness. No mass felt. EXTREMITIES: No edema. Full range of motion of all extremities, equal. NEUROLOGIC: No focal deficit. Cranial nerves II through XII are grossly intact. No headache. No double vision. SKIN: Not dry. Intact. Turgor - normal. LYMPHATIC: No palpable lymph nodes/no lymphedema. MUSCULOSKELETAL: Normal joints with no swelling. Muscle tone is normal. LABS: hgb 10.9, hct 33, WBC 7,600 normal differential, creatinine 0.6, BUN 23, potassium 4 ASSESSMENT: 1. Exacerbation of COPD under control PLAN: 1. Discharge the patient home on Omnicef and Prednisone 2. See her in 5-7 days 3. Discontinue Losartan and continue Losartan with Hydrochlorothiazide that is Hyzaar. 4. The patient is saying she is not going to go to [place], She is going to go back to own home. TIME SPENT: More than 30 minutes. Plan and coordination of the patient's care discussed in the presence of nurse. SUSAN
--- NOTE | 2022-01-14 13:48 | PN ---
DATE OF SERVICE: 01/12/22 SUBJECTIVE: The patient was seen and examined with the Nurse Practitioner. The patient's condition has improved, breathing has improved. She is oriented to time, place and person. The patient is going to be discharged home on steroids and NEBS and antibiotics. The patient's condition is stable. Counseling for smoking done. Also the patient is almost morbidly obese. Advised to lose weight. Diet discussed with her. Her other problem is that she is hard of hearing. Several family members have been trying to take care of her. TIME SPENT: More than 30 minutes. Plan and coordination of the patient's care discussed in the presence of nurse. SUSAN
--- NOTE | 2022-01-15 11:17 | PN ---
DATE OF SERVICE: 01/11/22 SUBJECTIVE: The patient was seen and examined in the Emergency Room. The patient has been hospitalized with COPD exacerbation. The patient is going to be treated with antibiotics, steroids. Her problem is social too; living by herself with help of son which not much help, heavy smoker and has poor lifestyle. TIME SPENT: More than 30 minutes. Plan and coordination of the patient's care discussed in the presence of nurse. SUSAN
--- NOTE | 2022-01-15 11:44 | PN ---
ADMISSION DAY: Level 5 REST OF THEM: Intermediate FINAL DAY: D as in discharge MTDD
--- NOTE | 2022-01-15 11:44 | DS ---
DATE OF SERVICE: 01/13/22 FINAL DIAGNOSIS: 1. Acute exacerbation of COPD 2. Severe chronic lung disease with history of heavy smoking. 3. Obesity with BMI 35 with sedentary lifestyle 4. Generalized osteoarthritis, moderate to severe followed by Pain Management Dr. Copeland 5. Hypertension 6. Dyslipidemia 7. Hypothyroidism 8. Diabetes mellitus 9. Depression with anxiety disorder followed by Dr. Guo DISCHARGE INSTRUCTIONS: Discharge home today. Instruction to come back in 5-7 days. MEDICATIONS AT DISCHARGE: Advised to continue Aspirin Xanax Zanaflex Percocet Gabapentin Hyzaar 50-12.5mg daily Diltazem Albuterol Budesonide-Formoterol Symbicort inhaler Trelegy Levothyroxine Metformin Mirtazapine Oxybutynin Pravachol Pravastatin NEW PRESCRIPTIONS: Omnicef 300mg twice a day for 5 days Prednisone 10mg daily for 5 days DISCONTINUED MEDICATIONS: Losartan 25mg DIET INSTRUCTIONS: Counseling for diet done with weight loss diet ACTIVITY: As tolerated SMOKING: Counseling for smoking done LABS: Hgb 10.9, hct 33, WBC 7,600 normal differential, creatinine 0.6, BUN 23, potassium 4. HOSPITAL COURSE: 76 year old white female hospitalized with acute bronchitis/pneumonitis. The patient was treated with Rocephin and Zithromax. The patient at the time of discharge was feeling a lot better. The patient was given 3 doses of Rocephin in the hospital and she was put on Omnicef at the time of discharge. Practically no wheezing. The patient is strongly advised to quit smoking, advised to lose weight and advised to give up sedentary lifestyle. Severely generalized osteoarthritis because of that she was unable to do a lot of walking etc. The patient is followed by Pain Management and followed by Dr. Guo who is a psychiatrist. Advised to followup with both of them. The patient has problem with the family. Family had arranged for her to go to [place], that is assisted living but she wants to go home. CONDITION: Stable. TIME SPENT: More than [address]
== END 2022-01-13 13:50 | disposition home or self-care (01) ==
LOC: ED 09:01 → MEDSURG A 09:01
PROVIDERS: ADMIT Internal Medicine; ATTEND Internal Medicine
DX: Z20.822 Contact with and (suspected) exposure to COVID-19; J44.1 Chronic obstructive pulmonary disease with (acute) exacerbation; Z60.2 Problems related to living alone; E03.9 Hypothyroidism, unspecified; E11.9 Type 2 diabetes mellitus without complications; F43.23 Adjustment disorder with mixed anxiety and depressed mood; M15.0 Primary generalized (osteo)arthritis; H90.3 Sensorineural hearing loss, bilateral; E78.5 Hyperlipidemia, unspecified; Z68.35 Body mass index [BMI] 35.0-35.9, adult; J96.10 Chronic respiratory failure, unspecified whether with hypoxia or hypercapnia; F17.210 Nicotine dependence, cigarettes, uncomplicated; E66.01 Morbid (severe) obesity due to excess calories; I10 Essential (primary) hypertension

== ENCOUNTER 2022-02-25 11:41 | Inpatient (IN) ==
[2022-02-25 14:07] LABS: BORDETELLA PARAPERTUSSIS (PCR) NOT DETECTED (NOT DETECT); BORDETELLA PERTUSSIS (PCR) NOT DETECTED (NOT DETECT); CHLAMYDIA PNEUMONIAE (PCR) NOT DETECTED (NOT DETECT); CORONAVIRUS 229E (PCR) NOT DETECTED (NOT DETECT); CORONAVIRUS HKU1 (PCR) NOT DETECTED (NOT DETECT); CORONAVIRUS NL63 (PCR) NOT DETECTED (NOT DETECT); CORONAVIRUS OC43 (PCR) NOT DETECTED (NOT DETECT); HUMAN METAPNEUMOVIRUS (PCR) NOT DETECTED (NOT DETECT); HUMAN RHINOVIRUS/ENTEROV (PCR) NOT DETECTED (NOT DETECT); INFLUENZA B (PCR) NOT DETECTED (NOT DETECT); MYCOPLASMA PNEUMONIAE (PCR) NOT DETECTED (NOT DETECT); PARAINFLUENZA VIRUS 1 (PCR) NOT DETECTED (NOT DETECT); PARAINFLUENZA VIRUS 2 (PCR) NOT DETECTED (NOT DETECT); PARAINFLUENZA VIRUS 3 (PCR) NOT DETECTED (NOT DETECT); PARAINFLUENZA VIRUS 4 (PCR) NOT DETECTED (NOT DETECT); RESPIRATORY SYNCYTIAL V (PCR) NOT DETECTED (NOT DETECT); SARS_COV_2 (PCR) NOT DETECTED (NOT DETECT)
[2022-02-25 14:11] LABS: ADENOVIRUS (PCR) NOT DETECTED (NOT DETECT)
[2022-02-25] MEDS ORDERED: VENTOLIN HFA (PER PUFF-WITH SPACER) IH PRN (14:27)
[2022-02-25] MEDS ORDERED: XANAX PO PRN (14:27)
[2022-02-25 14:33] VITALS: BMI 34.7
[2022-02-25] MEDS ORDERED: ATROPINE SULFATE PFS IVP PRN (14:48)
[2022-02-25] MEDS ORDERED: TYLENOL PO PRN (14:48)
[2022-02-25] MEDS ORDERED: NITROSTAT SL PRN (14:48)
[2022-02-25] MEDS ORDERED: ZOFRAN 4 MG/2 ML IVP PRN (15:24)
[2022-02-25] MEDS: ZANAFLEX PO SCH ×2 (15:39→21:13)
[2022-02-25] MEDS: SODIUM CHLORIDE 1,000 ML IV SCH (15:39)
[2022-02-25] MEDS: XANAX PO PRN ×2 (15:39→21:11)
[2022-02-25] MEDS: DITROPAN PO SCH ×2 (15:39→21:11)
[2022-02-25] MEDS: ANTIVERT PO SCH ×2 (15:39→21:12)
[2022-02-25 15:43] LABS: BASOPHILS % (AUTO) 0.5 % (0.0-3.0); EOSINOPHILS # (AUTO) 0.1 K/ul (0.0-0.7); EOSINOPHILS % (AUTO) 0.8 % (0.0-7.0); HEMATOCRIT 33.1 % (37.0-47.0); HEMOGLOBIN 11.3 g/dl (12.0-16.0); IMMATURE GRANULOCYTE % (AUTO) 0.7 % (0.0-5.0); LYMPHOCYTES # (AUTO) 1.6 K/uL (0.60-3.4); LYMPHOCYTES % (AUTO) 26.4 (10.0-50.0); MEAN CORPUSCULAR HEMOGLOBIN 30.1 pg (27.0-31.0); MEAN CORPUSCULAR HGB CONC 34.1 (31.8-35.4); MEAN CORPUSCULAR VOLUME 88.3 fl (81.0-99.0); MONOCYTES # (AUTO) 0.6 K/uL (0.4-2.0); MONOCYTES % (AUTO) 9.9 (0-10); NEUTROPHILS # (AUTO) 3.7 K/ul (2.0-6.9); NEUTROPHILS % (AUTO) 61.7 % (42.2-75.2); PLATELET COUNT 234 10^3/uL (140-440); RDW COEFFICIENT OF VARIATION 13.7 % (11.6-14.8); RED BLOOD COUNT 3.75 10^6/ul (4.20-5.40); WHITE BLOOD COUNT 5.94 K/ul (4.6-10.2)
[2022-02-25 15:56] LABS: ALBUMIN 4.21 g/dL (3.5-5.0); ALKALINE PHOSPHATASE 106.9 U/L (53-141); ASPARTATE AMINO TRANSFERASE 19.7 U/L (14-36); BILIRUBIN,TOTAL 0.44 mg/dL (0.2-1.3); BLOOD UREA NITROGEN 11.7 mg/dL (7-17); CALCIUM 9.31 mg/dL (8.4-10.2); CARBON DIOXIDE 28.3 mmol/L (22-30.0); CHLORIDE 93.8 mmol/L (98-107); CREATININE 0.75 mg/dL (0.60-1.30); GLUCOSE 111.3 mg/dL (74-106); POTASSIUM 3.74 mmol/L (3.5-5.1); SODIUM 128.1 mmol/L (134.5-145); TOTAL PROTEIN 6.93 g/dL (6.3-8.2)
--- NOTE | 2022-02-25 16:24 | US ---
EXAM: Carotid ultrasound. HISTORY: COMPARISON: None. Technique: Duplex ultrasound exam. Color doppler waveforms ,spectral doppler waveforms, arterial ve locities and gunn scale images were obtained of the cervical MAHESH, LICA and vertebral arteries FINDINGS: Right cervical carotid: There is mld atherosclerotic plaque in the right internal carotid artery. Pe ak systolic velocity right ICA 75 cm a second . Velocity right CCA 80.7 cm rs per second. Velocity ratio right ICA: CCA 0.9. Left cervical carotid: There is mild atherosclerotic plaque in the left internal carotid artery. Pea k systolic velocity left ICA 107 cm per second. Velocity left CCA 81 cm per second. Velocity ratio left ICA: CCA 1.3 Normal flow is present in the right and left carotid artery.. IMPRESSION: 1. There is mild atherosclerotic plaque in the right internal carotid artery. There is no associate d stenosis of the right internal carotid artery. 2. There is mild atherosclerotic plaque in the left internal carotid artery. There is no associated stenosis of the left internal carotid artery. 3. Vascular flow in the right and left vertebral artery is antegrade.
[2022-02-25] MEDS: SPIRIVA IH SCH (16:57)
[2022-02-25] MEDS: GLUCOPHAGE PO SCH (16:57)
[2022-02-25] MEDS: PERCOCET 7.5-325 PO PRN ×2 (16:57→22:58)
[2022-02-25 17:21] LABS: BILIRUBIN,URINE Negative (NEGATIVE); CLARITY,URINE Clear (CLEAR); COLOR,URINE Yellow (YELLOW); GLUCOSE, URINE (UA) Negative (NEGATIVE); KETONES,URINE Negative (NEGATIVE); LEUKOCYTE ESTERASE ,URINE Negative (NEGATIVE); NITRITE,URINE Negative (NEGATIVE); PROTEIN,URINE Negative (NEGATIVE); URINE, BLOOD Negative (NEGATIVE); UROBILINOGEN,URINE 0.2 (0.2)
[2022-02-25] MEDS ORDERED: DULCOLAX PO ONE ×2 (18:38→18:46)
[2022-02-25] MEDS: CARDIZEM PO SCH (21:11)
[2022-02-25] MEDS: REMERON PO SCH (21:12)
[2022-02-25] MEDS: NEURONTIN PO SCH (21:13)
[2022-02-25] MEDS: SYMBICORT 160-4.5 MCG INHALER IH SCH (21:13)
[2022-02-26] MEDS: SODIUM CHLORIDE 1,000 ML IV SCH ×2 (04:58→18:21)
[2022-02-26] MEDS: SYNTHROID PO SCH (05:55)
[2022-02-26] MEDS: ZANAFLEX PO SCH ×3 (05:55→20:51)
[2022-02-26 06:00] LABS: BASOPHILS % (AUTO) 0.8 % (0.0-3.0); EOSINOPHILS # (AUTO) 0.2 K/ul (0.0-0.7); EOSINOPHILS % (AUTO) 4.8 % (0.0-7.0); HEMOGLOBIN 11.5 g/dl (12.0-16.0); IMMATURE GRANULOCYTE % (AUTO) 0.6 % (0.0-5.0); LYMPHOCYTES # (AUTO) 1.8 K/uL (0.60-3.4); LYMPHOCYTES % (AUTO) 37.8 (10.0-50.0); MEAN CORPUSCULAR HEMOGLOBIN 30.3 pg (27.0-31.0); MEAN CORPUSCULAR HGB CONC 33.8 (31.8-35.4); MEAN CORPUSCULAR VOLUME 89.5 fl (81.0-99.0); MONOCYTES # (AUTO) 0.5 K/uL (0.4-2.0); MONOCYTES % (AUTO) 11.1 (0-10); NEUTROPHILS # (AUTO) 2.2 K/ul (2.0-6.9); NEUTROPHILS % (AUTO) 44.9 % (42.2-75.2); PLATELET COUNT 245 10^3/uL (140-440); RDW COEFFICIENT OF VARIATION 13.6 % (11.6-14.8); WHITE BLOOD COUNT 4.79 K/ul (4.6-10.2)
[2022-02-26 06:14] LABS: ALANINE AMINOTRANSFERASE 13.6 U/L (0-35); ALBUMIN 3.95 g/dL (3.5-5.0); ALKALINE PHOSPHATASE 94.2 U/L (53-141); ASPARTATE AMINO TRANSFERASE 18.6 U/L (14-36); BILIRUBIN,TOTAL 0.56 mg/dL (0.2-1.3); BLOOD UREA NITROGEN 9.6 mg/dL (7-17); CALCIUM 8.83 mg/dL (8.4-10.2); CARBON DIOXIDE 25.5 mmol/L (22-30.0); CHLORIDE 99.8 mmol/L (98-107); CREATININE 0.73 mg/dL (0.60-1.30); GLUCOSE 103.3 mg/dL (74-106); POTASSIUM 3.91 mmol/L (3.5-5.1); TOTAL PROTEIN 6.68 g/dL (6.3-8.2)
[2022-02-26] MEDS: PRAVACHOL PO SCH (08:57)
[2022-02-26] MEDS: DITROPAN PO SCH ×3 (08:58→20:53)
[2022-02-26] MEDS: GLUCOPHAGE PO SCH ×2 (08:58→17:20)
[2022-02-26] MEDS: XANAX PO PRN ×2 (08:58→20:51)
[2022-02-26] MEDS: PERCOCET 7.5-325 PO PRN ×3 (08:58→20:52)
[2022-02-26] MEDS: ANTIVERT PO SCH ×3 (08:58→20:51)
[2022-02-26] MEDS: CARDIZEM PO SCH ×2 (08:59→20:52)
[2022-02-26] MEDS: HYZAAR 50-12.5 MG TAB PO SCH (08:59)
[2022-02-26] MEDS: COZAAR PO SCH (08:59)
[2022-02-26] MEDS ORDERED: NON-FORMULARY MEDICATION (Fluticasone-Umeclidin-Vilanter [Trelegy Ellipta] 200-62.5-25 mcg IH SCH (09:00)
[2022-02-26] MEDS: SPIRIVA IH SCH (09:03)
[2022-02-26] MEDS: SYMBICORT 160-4.5 MCG INHALER IH SCH ×2 (09:03→20:50)
--- NOTE | 2022-02-26 13:19 | RS.OTINEVL ---
Subjective - Patient information Date of Evaluation: 02/26/22 Date of Arrival on Unit: 02/25/22 Admitted From:: Emergency Dept Diagnosis: chest tightness, dizziness, weakness PRECAUTIONS: [place], Cochlear implant, RW Usual Living Arrangement: Alone Living Arrangement Comments: 04/16/17, FRIENDS AND FAMILY. 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 - Level of function Prior to this admission, the patient could do the following:: Independent Selfcare, Independent ADL's, Independent Ambulation, Perform Gold Assayer/Cooking, Drive, Participated in Social Activities Outside home Abilities prior to this admission: Pt living at home alone in her apartment. Pt still drives. Pt uses a RW to ambulate. Pt has a caregiver in the mornings to fix her breakfast and help around the apartment. Current Level of Function: Partially Dependent Current Equipment Used at Home: oxygen concentrator from medical care administrator place in [place], shower chair, glucometer, blood pressure machine, pulse ox, nebulizer, rollator, wheelchair Pain Assessment - Pain Pain Score: 3 Side: bilateral Pain Location Body Site: Back Pain Aggravating Factors: Changing Position, Standing, Sitting Pain Alleviating Factors: Medication, Position Change Interventions - Objective Patient Orientation: Person, Place, Time, Situation Current Interventions: IV's, Oxygen, Telemetry Observation: Pt is appearing anxious. Pt cannot hear if she can't read lips. Pt walks with RW. Pt walks slowly and takes her time. Pt is CGA with sit to stand from EOB and from toilet. Pt has weakness in her BUE. Pt independent with personal hygiene. Interventions - ROM Right Upper Extremity AROM: Slight limitation Left Upper Extremity AROM: Slight limitation - Strength Right Upper Extremity Strength: Mild Weakness Left Upper Extremity Strength: Mild Weakness - Sensation Right Upper Extremity Sensation: Intact/Normal Left Upper Extremity Sensation: Intact/Normal Balance - Sitting Balance Static Sitting Balance: Poor Dynamic Sitting Balance: Poor - Standing Balance Static Standing Balance: Poor Dynamic Standing Balance: Poor ADL Skills - Self Feeding Self Feeding: Independent - Grooming Grooming: Set Up Only - Bathing Bathing UE: Min Assist Bathing LE: Min Assist - Dressing Dressing UE: CGA, Min Assist Dressing LE: CGA - Toilet Management Toilet Hygiene: Independent Toilet Clothing Management: Independent Functional Mobility - Bed Mobility Supine to Sit: Min Assist - Transfers Sit to Stand: CGA Stand to Sit: CGA Stand Pivot Transfers: CGA - Ambulation Weight Bearing Status: FWB Assistance needed with Ambulation: CGA - Safety Awareness Safety Awareness: Fair SARAH INDEX SCORE: . Additional Treatment Performed - Additional units charged ADL: 15 - Time with patient Length of Evaluation: 18 Total treatment time: 33 Activities Do you enjoy playing games?: No Would you be interested in leaving your room for activities?: Yes Would you enjoy group activities?: Yes Do you have difficulty with your vision?: No Patient Interests:: Watching Television Patient Education Patient Education: Home Exercise Program, Education of Plan of Care Teaching Recipient: Patient Teaching Methods: Discussion Comments: Son wishes for her to have therapy in the hospital. Assessment Problem List:: Decreased level of function, Decreased safety/Risk of falls, Weakness Rehab Potential: Good Further Therapy Indicated?: Yes Candidate for Swing Bed for Therapy Services?: no Evaluation Complexity: HISTORY: Medium, EXAM OF BODY SYSTEMS: Medium, CLINICAL DECISION MAKING: Medium Patient's Goal(s): To be able to go home. Short Term Goals - Goals GOAL 1: Pt to increase her safety of functional transfers to toilet. Goal to be met by: 03/01/22 GOAL 2: Pt to increase her BUE strength to 4/5. Goal to be met by: 03/01/22 GOAL 3: Pt to increase patient's dyn. std. bal. to Fair+. Goal to be met by: 03/01/22 [facility] Goals GOAL 1: Pt to be safe with the AD to complete her ADLS. Goal to be met by: 03/02/22 GOAL 2: Pt to increase her BUE strength to 4+/5. Goal to be met by: 03/02/22 GOAL 3: Pt to increase her dyn. std. bal. to G- to increase safety. Goal to be met by: 03/02/22 Plan Plan of Care: Neuromuscular Re-Educ, Therapeutic Activity, Self-Care/Home Management Frequency of Treatment: 1-2 X day, as tolerated Duration of Treatment: 1 Week Anticipated Discharge Destination: Home Treatment Diagnosis (ICD 10 Codes): Weakness M62.81 Has the Physician been added for Co-signature?: Yes
--- NOTE | 2022-02-26 13:26 | PN ---
DATE OF SERVICE: 02/25/22 SUBJECTIVE: She was hospitalized directly with hyponatremia, abnormal chest x-ray with cough, congestion and dizziness. The patient was seen in the emergency room twice almost yesterday. CT scan of the chest showed evidence of possibility of pneumothorax was raised with reviewing the chest x-ray film. The patient has consolidation which is persistent. The patient's problem is heavy smoker, shortness of breath with minimal exertion, dizziness, hyponatremia with sodium is 127. Called again to be seen in the office. She was advised to be hospitalized to which she agreed. She has been in the emergency room here and in [facility] multiple times in past 6 months. Second time since she has been hospitalized 3-4 times at different hospitals including [facility]. The patient's problem is she is noncompliant of all aspects of medical care. The family doesn't know what to do with her. She is a candidate for assisted living but she doesn't consent to going to that. She lives by herself and not able to take care of herself. Son lives with her but he is not dependable. The patient is a heavy smoker. REVIEW OF SYSTEMS: CONSTITUTIONAL: No night sweats. No fatigue, malaise, lethargy. No fever or chills. HEENT: Eyes: No visual changes. No eye pain. No eye discharge. ENT: No runny nose. No epistaxis. No sinus pain. No sore throat. No odynophagia. No congestion. RESPIRATORY: Mild cough, no congestion. No hemoptysis. Shortness of breath. CARDIOVASCULAR: No angina symptoms. No CHF symptoms. No atypical chest pain for CAD. No palpitations. No PND. No orthopnea. GASTROINTESTINAL: No abdominal pain. No nausea or vomiting. No diarrhea or constipation. No hematemesis. No hematochezia. GENITOURINARY: No urgency. No frequency. No dysuria. No hematuria. No obstructive symptoms. No discharge. No pain. No significant abnormal bleeding. MUSCULOSKELETAL: No musculoskeletal pain; no joint swelling. NEUROLOGICAL: No headache. No neck pain. No syncope. No seizures. Dizziness. PSYCHIATRIC: Not anxious. No depression. No suicidal thoughts. No homicidal thoughts. SKIN: No rash. No lesions. No wounds. ENDOCRINE: No unexplained weight loss. No weight gain. HEMATOLOGIC/LYMPHATIC: No anemia. No purpura. No petechiae. No prolonged or excessive bleeding. No palpable lymph nodes. PHYSICAL EXAMINATION: HEENT: Head normocephalic, atraumatic. Eyes: Extraocular muscles are intact. Pupils are equal, round and reactive to light and accommodation. Ears: No lesions. Nose appeared normal. Throat: No exudate or erythema. NECK: Supple. No JVD, no carotid bruit. No lymphadenopathy or thyromegaly. LUNGS: Decreased breaths but clear to auscultation. Percussion note normal. Chest symmetrical. HEART: S1, S2 distant, no S3. No murmurs. No cyanosis or clubbing. No ascites. Pulses: Dorsalis pedis and posterior tibial pulses +1 to +2 bilaterally. ABDOMEN: Soft. Nontender. Bowel sounds active. No CVA tenderness. No mass felt. EXTREMITIES: No edema. Full range of motion of all extremities, equal. NEUROLOGIC: No focal deficit. Cranial nerves II through XII are grossly intact. No headache. No double vision. SKIN: Not dry. Intact. Turgor - normal. LYMPHATIC: No palpable lymph nodes/no lymphedema. MUSCULOSKELETAL: Normal joints with no swelling. Muscle tone is normal. LABS: Telemetry is sinus rhythm. No acute changes. EKG sinus rhythm. No acute changes. Labs done yesterday showed hyponatremia. The patient's saturation is 94% on room air. ASSESSMENT: 1. Dizziness multifactorial 2. Shortness of breath likely from COPD 3. Bronchitis which is COPD with heavy smoking 4. Abnormal CT scan of the chest, patient declined to pulmonary physician at present time. PLAN: 1. Admit the patient 2. Steroids 3. NEBS 4. IV normal saline infusion 5. Will monitor daily CMP 6. Telemetry 7. Carotid scan 8. CT scan of the head and it was negative. CONDITION: Stable PROGNOSIS: Guarded. 2. 3. TIME SPENT: More than 30 minutes. Plan and coordination of the patient's care discussed in the presence of nurse. SUSAN
--- NOTE | 2022-02-26 13:40 | HP ---
DATE OF SERVICE: 02/25/22 REASON FOR HOSPITALIZATION/HISTORY OF PRESENT ILLNESS: Seen in ER 02/24 dizziness/Nauseated. Sodium 128. Still dizzy this AM. No signs or symptoms of CHF/CAD PAST MEDICAL HISTORY: COPD Dyslipidemia GERD Depression/Anxiety CAD Hyponatremia PAST SURGICAL HISTORY: Gallbladder Hysterectomy Appendix REVIEW OF SYSTEMS: CONSTITUTIONAL: No fever, Fatigue. HEENT: No sinus drainage, no sore throat. RESPIRATORY: No cough, no congestion. CARDIOVASCULAR: No atypical chest pain for coronary artery disease. No angina, CHF symptoms, palpitations or shortness of breath. GASTROINTESTINAL: No melena or abdominal pain. No GERD. Nausea. GENITOURINARY: No hematuria, no prostatism, no polyuria. SHOW CARD WRITER: No blackout, Dizziness, no headache, no double vision. MUSCULOSKELETAL: Osteoarthritis pain, no joint swelling. ENDOCRINE: No weight loss, no weight gain. SKIN: Not dry, no rash. PSYCHIATRIC: Not anxious, no depression, no suicidal thoughts, no homicidal thoughts. SOCIAL HISTORY: Marital Status: . Alcohol Usage: NO. Tobacco Usage: Yes. FAMILY HISTORY: Father Mother Sister 1 MEDICATIONS: Pravachol 80mg PO daily Metformin 500mg two HS Diltiazem 60mg twice At 4 Tizanidine 4mg Q 8 hours Trelegy Ellipta 200/6.25/25 Losartan/HCTZ 50/12.5 daily Albuterol HFA 1-2 puff Q4 hours Oxybutynin 5mg three times daily Losartan Potassium 25mg PO daily Levothyroxine 50mcg daily Oxycodone 7.5-325mg Q 6 hours Mirtazapine 15mg 1/2 HS Alprazolam 0.5mg three times daily PRN Gabapentin 300mg Q 8 hours Symbicort 160/45 ALLERGIES: Wellbutrin Zocor Lipitor Crestor PHYSICAL EXAMINATION: V/S: GENERAL APPEARANCE: Oriented times three. HEENT: Normal. Pale. Diaphoretic NECK: No JVP, no bruits. RESPIRATORY: Severely diminished breath sounds. CARDIOVASCULAR: S1, S2, no S3, no murmur. No cyanosis, clubbing. No ascites. GI/ABDOMEN: No tenderness. Bowel sounds are active. EXTREMITIES: Trace pedal edema, pulses +1, equal. SHOW CARD WRITER: Deep tendon reflexes, sensory, motor and gait all normal. RECTAL: Refused/PELVIC: Refused. Mammogram 10/07 [facility]. ASSESSMENT: 1. Hyponatremia 2. Dizziness 3. Generalized weakness 4. Anemia 5. Vitamin D deficiency 6. Status post cochlear implant 7. Hypertension 8. Diabetes Mellitus type II 9. Dyslipidemia 10.COPD 11.GERD 12.Hypothyroidism 13.Dependent leg edema 14.Depression 15.Anxiety, Dr. Guo 16.Depression, Dr. Guo 17. Smoker 18. Chronic bronchitis 19. DJD L spine 20. Recurrent UTI 21. Noncompliant with diet, medications and lifestyle. PLAN: 1. Admit 2. The patient to be tested in drive thru 3. Routine telemetry orders 4. No cardiac markers 5. No chest x-ray- had CT in ER 02/24 6. Normal saline IV at 75cc an hour 7. U/A with culture 8. Bilateral carotid scan 9. Antivert 25mg TID scheduled 10.Zofran 4mg IV PRN Q 6 hours 11.Regular diet 12.Fall precautions 13.Continue home medications 14.CBC and CMP today and daily TIME SPENT: More than 70 minutes. MTDD
[2022-02-26] MEDS: NEURONTIN PO SCH (20:51)
[2022-02-26] MEDS: REMERON PO SCH (20:52)
[2022-02-27] MEDS: ZANAFLEX PO SCH ×3 (05:31→21:12)
[2022-02-27 06:11] LABS: BASOPHILS % (AUTO) 0.8 % (0.0-3.0); EOSINOPHILS # (AUTO) 0.2 K/ul (0.0-0.7); EOSINOPHILS % (AUTO) 4.3 % (0.0-7.0); HEMATOCRIT 33.1 % (37.0-47.0); IMMATURE GRANULOCYTE % (AUTO) 0.8 % (0.0-5.0); LYMPHOCYTES # (AUTO) 1.5 K/uL (0.60-3.4); MEAN CORPUSCULAR HGB CONC 33.2 (31.8-35.4); MEAN CORPUSCULAR VOLUME 90.2 fl (81.0-99.0); MONOCYTES # (AUTO) 0.6 K/uL (0.4-2.0); MONOCYTES % (AUTO) 14.5 (0-10); NEUTROPHILS # (AUTO) 1.6 K/ul (2.0-6.9); NEUTROPHILS % (AUTO) 41.6 % (42.2-75.2); PLATELET COUNT 218 10^3/uL (140-440); RDW COEFFICIENT OF VARIATION 13.8 % (11.6-14.8); RED BLOOD COUNT 3.67 10^6/ul (4.20-5.40); WHITE BLOOD COUNT 3.92 K/ul (4.6-10.2)
[2022-02-27 06:15] LABS: ALANINE AMINOTRANSFERASE 11.3 U/L (0-35); ALBUMIN 3.86 g/dL (3.5-5.0); ASPARTATE AMINO TRANSFERASE 16.7 U/L (14-36); BILIRUBIN,TOTAL 0.51 mg/dL (0.2-1.3); BLOOD UREA NITROGEN 10.6 mg/dL (7-17); CALCIUM 8.87 mg/dL (8.4-10.2); CHLORIDE 103.9 mmol/L (98-107); CREATININE 0.63 mg/dL (0.60-1.30); GLUCOSE 98.5 mg/dL (74-106); SODIUM 135.3 mmol/L (134.5-145); TOTAL PROTEIN 6.63 g/dL (6.3-8.2)
[2022-02-27] MEDS: PERCOCET 7.5-325 PO PRN ×3 (06:22→21:19)
[2022-02-27] MEDS: SYNTHROID PO SCH (06:22)
[2022-02-27 06:35] LABS: POTASSIUM 3.78 mmol/L (3.5-5.1)
[2022-02-27] MEDS: CARDIZEM PO SCH ×2 (09:26→21:13)
[2022-02-27] MEDS: COZAAR PO SCH (09:26)
[2022-02-27] MEDS: ANTIVERT PO SCH ×3 (09:27→21:13)
[2022-02-27] MEDS: GLUCOPHAGE PO SCH ×2 (09:27→17:21)
[2022-02-27] MEDS: HYZAAR 50-12.5 MG TAB PO SCH (09:27)
[2022-02-27] MEDS: DITROPAN PO SCH ×3 (09:28→21:14)
[2022-02-27] MEDS: SYMBICORT 160-4.5 MCG INHALER IH SCH ×2 (09:28→21:15)
[2022-02-27] MEDS: SPIRIVA IH SCH (09:28)
[2022-02-27] MEDS: PRAVACHOL PO SCH (09:28)
[2022-02-27] MEDS: XANAX PO PRN ×2 (12:18→19:39)
[2022-02-27] MEDS: NEURONTIN PO SCH (21:12)
[2022-02-27] MEDS: REMERON PO SCH (21:13)
[2022-02-28] MEDS: SYNTHROID PO SCH (05:45)
[2022-02-28] MEDS: ZANAFLEX PO SCH ×3 (05:45→21:03)
[2022-02-28 05:56] LABS: BASOPHILS % (AUTO) 0.7 % (0.0-3.0); EOSINOPHILS # (AUTO) 0.2 K/ul (0.0-0.7); EOSINOPHILS % (AUTO) 5.5 % (0.0-7.0); HEMATOCRIT 34.2 % (37.0-47.0); HEMOGLOBIN 11.2 g/dl (12.0-16.0); IMMATURE GRANULOCYTE % (AUTO) 0.9 % (0.0-5.0); LYMPHOCYTES # (AUTO) 1.7 K/uL (0.60-3.4); LYMPHOCYTES % (AUTO) 38.4 (10.0-50.0); MEAN CORPUSCULAR HEMOGLOBIN 29.6 pg (27.0-31.0); MEAN CORPUSCULAR HGB CONC 32.7 (31.8-35.4); MEAN CORPUSCULAR VOLUME 90.5 fl (81.0-99.0); MONOCYTES # (AUTO) 0.5 K/uL (0.4-2.0); MONOCYTES % (AUTO) 12.4 (0-10); NEUTROPHILS # (AUTO) 1.8 K/ul (2.0-6.9); NEUTROPHILS % (AUTO) 42.1 % (42.2-75.2); PLATELET COUNT 223 10^3/uL (140-440); RDW COEFFICIENT OF VARIATION 13.8 % (11.6-14.8); RED BLOOD COUNT 3.78 10^6/ul (4.20-5.40); WHITE BLOOD COUNT 4.37 K/ul (4.6-10.2)
[2022-02-28 06:11] LABS: ALBUMIN 3.83 g/dL (3.5-5.0); ALKALINE PHOSPHATASE 83.1 U/L (53-141); BILIRUBIN,TOTAL 0.52 mg/dL (0.2-1.3); BLOOD UREA NITROGEN 17.3 mg/dL (7-17); CALCIUM 9.16 mg/dL (8.4-10.2); CHLORIDE 103.7 mmol/L (98-107); CREATININE 0.75 mg/dL (0.60-1.30); GLUCOSE 106.7 mg/dL (74-106); POTASSIUM 4.04 mmol/L (3.5-5.1); SODIUM 136.8 mmol/L (134.5-145); TOTAL PROTEIN 6.55 g/dL (6.3-8.2)
[2022-02-28] MEDS: CARDIZEM PO SCH ×2 (08:38→21:04)
[2022-02-28] MEDS: PRAVACHOL PO SCH (08:38)
[2022-02-28] MEDS: GLUCOPHAGE PO SCH ×2 (08:39→16:50)
[2022-02-28] MEDS: XANAX PO PRN ×3 (08:39→21:03)
[2022-02-28] MEDS: HYZAAR 50-12.5 MG TAB PO SCH (08:39)
[2022-02-28] MEDS: DITROPAN PO SCH ×3 (08:39→21:04)
[2022-02-28] MEDS: ANTIVERT PO SCH ×3 (08:39→21:04)
[2022-02-28] MEDS: COZAAR PO SCH (08:39)
[2022-02-28] MEDS: PERCOCET 7.5-325 PO PRN ×3 (08:39→21:42)
[2022-02-28] MEDS: SPIRIVA IH SCH (08:41)
[2022-02-28] MEDS: SYMBICORT 160-4.5 MCG INHALER IH SCH ×2 (08:41→21:04)
[2022-02-28] MEDS: SODIUM CHLORIDE 1,000 ML IV SCH (08:45)
[2022-02-28] MEDS: NEURONTIN PO SCH (21:04)
[2022-02-28] MEDS: REMERON PO SCH (21:04)
[2022-03-01 05:20] VITALS: BP 143/76; TEMP 97
[2022-03-01] MEDS: SYNTHROID PO SCH (05:45)
[2022-03-01] MEDS: ZANAFLEX PO SCH (05:45)
[2022-03-01 05:56] LABS: BASOPHILS % (AUTO) 0.6 % (0.0-3.0); EOSINOPHILS # (AUTO) 0.2 K/ul (0.0-0.7); EOSINOPHILS % (AUTO) 4.6 % (0.0-7.0); HEMATOCRIT 33.2 % (37.0-47.0); IMMATURE GRANULOCYTE % (AUTO) 0.4 % (0.0-5.0); LYMPHOCYTES % (AUTO) 42.1 (10.0-50.0); MEAN CORPUSCULAR HGB CONC 33.1 (31.8-35.4); MEAN CORPUSCULAR VOLUME 90.5 fl (81.0-99.0); MONOCYTES # (AUTO) 0.5 K/uL (0.4-2.0); MONOCYTES % (AUTO) 10.2 (0-10); NEUTROPHILS % (AUTO) 42.1 % (42.2-75.2); PLATELET COUNT 237 10^3/uL (140-440); RDW COEFFICIENT OF VARIATION 13.5 % (11.6-14.8); RED BLOOD COUNT 3.67 10^6/ul (4.20-5.40)
[2022-03-01 06:09] LABS: ALANINE AMINOTRANSFERASE 11.6 U/L (0-35); ALBUMIN 3.91 g/dL (3.5-5.0); ALKALINE PHOSPHATASE 81.5 U/L (53-141); ASPARTATE AMINO TRANSFERASE 17.7 U/L (14-36); BILIRUBIN,TOTAL 0.57 mg/dL (0.2-1.3); BLOOD UREA NITROGEN 23.2 mg/dL (7-17); CALCIUM 9.22 mg/dL (8.4-10.2); CARBON DIOXIDE 27.8 mmol/L (22-30.0); CHLORIDE 102.6 mmol/L (98-107); CREATININE 0.74 mg/dL (0.60-1.30); GLUCOSE 94.4 mg/dL (74-106); POTASSIUM 4.04 mmol/L (3.5-5.1); SODIUM 137.6 mmol/L (134.5-145); TOTAL PROTEIN 6.67 g/dL (6.3-8.2)
[2022-03-01] MEDS ORDERED: DECADRON IM ONE (08:08)
[2022-03-01] MEDS: PRAVACHOL PO SCH (08:35)
[2022-03-01] MEDS: COZAAR PO SCH (08:36)
[2022-03-01] MEDS: DITROPAN PO SCH (08:36)
[2022-03-01] MEDS: HYZAAR 50-12.5 MG TAB PO SCH (08:36)
[2022-03-01] MEDS: GLUCOPHAGE PO SCH (08:36)
[2022-03-01] MEDS: CARDIZEM PO SCH (08:36)
[2022-03-01] MEDS: PERCOCET 7.5-325 PO PRN (08:36)
[2022-03-01] MEDS: XANAX PO PRN (08:36)
[2022-03-01] MEDS: ANTIVERT PO SCH (08:37)
[2022-03-01] MEDS: SPIRIVA IH SCH (08:39)
[2022-03-01] MEDS: SYMBICORT 160-4.5 MCG INHALER IH SCH (08:39)
--- NOTE | 2022-03-01 09:19 | PCM.PROG ---
Attending Provider: ATTENDING PROVIDER: Dr. SHIRA DIAZ This patient is seen with Lelo Norman, Nurse Practitioner. DATE OF SERVICE: 03/01/22 SUBJECTIVE: This 76 year old /WHITE F was hospitalized 02/25/22. The patient's sodium has improved with chronic back pain as usual. Discussed with the patient on CT here it reads as stable middle lobe consolidation. The patient has previous CT at [facility] about 2-3 weeks ago which read as chronic collapsed versus underlying Neoplasm. We are going to refer to production control technologist as she is at high risk for neoplasm given history of heavy smoking. REVIEW OF SYSTEMS: CONSTITUTIONAL: No night sweats. Fatigue. No fever or chills. HEENT: Eyes: No visual changes. No eye pain. No eye discharge. ENT: No runny nose. No epistaxis. No sinus pain. No odynophagia. No congestion. RESPIRATORY: No cough, no congestion. No hemoptysis. No shortness of breath. CARDIOVASCULAR: No angina symptoms. No CHF symptoms. No atypical chest pain for CAD. No palpitations. No orthopnea.. GASTROINTESTINAL: No abdominal pain. No nausea or vomiting. No diarrhea or constipation. No hematemesis. No hematochezia. GENITOURINARY: No urgency. No frequency. No dysuria. No hematuria. No obstructive symptoms. No discharge. No pain. No significant abnormal bleeding. MUSCULOSKELETAL: No musculoskeletal pain; no joint swelling. Chronic back pain. NEUROLOGICAL: Awake, alert, oriented to time, place and person. No headache. No neck pain. No syncope. No seizures. No dizziness. PSYCHIATRIC: Not anxious. No depression. No suicidal thoughts. No homicidal thoughts. SKIN: No rash. No lesions. No wounds. ENDOCRINE: No unexplained weight loss. No weight gain. HEMATOLOGIC/LYMPHATIC: No anemia. No purpura. No petechiae. No prolonged or excessive bleeding. No palpable lymph nodes. PHYSICAL EXAMINATION: GENERAL: The patient is awake, alert and oriented, lying in bed in no distress. VITAL SIGNS: Temperature 97.0 F, Pulse 60, Respiratory Rate 16, BP 143/76, Pulse Ox 97% HEENT: Head normocephalic, atraumatic. Eyes: Extraocular muscles are intact. Pupils are equal, round and reactive to light and accommodation. Ears: No lesions. Nose appeared normal. Throat: No exudate or erythema. NECK: Supple. No JVD, no carotid bruit. No lymphadenopathy or thyromegaly. LUNGS: Diminished breath sounds. Clear to auscultation. Percussion note normal. Chest symmetrical. HEART: S1, S2, no S3. No murmurs. No cyanosis or clubbing. No ascites. Pulses: Dorsalis pedis and posterior tibial pulses +1 to +2 both sides. ABDOMEN: Soft. Non-tender. Bowel sounds active. No CVA tenderness. No mass felt. EXTREMITIES: No edema. Full range of motion of all extremities, equal. NEUROLOGIC: No focal deficit. Cranial nerves II through XII are grossly intact. No headache. No double vision. SKIN: Not dry. Intact. Turgor-normal. LYMPHATIC: No palpable lymph nodes/no lymphedema. MUSCULOSKELETAL: Normal joints with no swelling. Muscle tone is normal. LAB REVIEW: 03/01/22 05:39 03/01/22 05:39 03/01/22 05:39: Sodium 137.6, Potassium 4.04, Chloride 102.6, Carbon Dioxide 27.8, Anion Gap 11.24, BUN 23.2 H, Creatinine 0.74, Estimated GFR (MDRD) 77.00, BUN/Creatinine Ratio 31.35, Glucose 94.4, Calcium 9.22, Total Bilirubin 0.57, AST 17.7, ALT 11.6, Alkaline Phosphatase 81.5, Total Protein 6.67, Albumin 3.91, Globulin 2.76, Albumin/Globulin Ratio 1.41 03/01/22 05:39: WBC 4.80, RBC 3.67 L, Hgb 11.0 L, Hct 33.2 L, MCV 90.5, MCH 30.0, MCHC 33.1, RDW Coeff of [place] 13.5, Plt Count 237, Immature Gran % (Auto) 0.4, Neut % (Auto) 42.1 L, Lymph % (Auto) 42.1, [place] % (Auto) 10.2 H, Eos % (Auto) 4.6, Baso % (Auto) 0.6, Neut # (Auto) 2.0, Lymph # (Auto) 2.0, [place] # (Auto) 0.5, Eos # (Auto) 0.2, Baso # (Auto) 0.0, Immature Gran # (Auto) 0.0 ASSESSMENT: Please see below. 1. Hyponatremia, resolved 2. Chronic consolidation versus neoplasm on chest CT 3. Endstage COPD 4. Chronic respiratory failure 5. Chronic back pain PLAN: 1. Discharge home 2. 4mg Decadron IM 3. Smoking cessation advised 4. Refer to Pulmonology for abnormal CT Plan and coordination of the patient's care discussed in the presence of Dot Net Developer and nurse. SCRIBED BY: Kelly HERCULES scribed while in presence of service performed by Dr. Diaz/Lelo Norman APRN on 03/01/22 ([id number])
--- NOTE | 2022-03-01 09:33 | DS ---
DATE OF SERVICE: 03/01/22 FINAL DIAGNOSIS: 1. Hyponatremia, resolved 2. Chronic consolidation versus neoplasm on chest CT 3. Endstage COPD 4. Chronic respiratory failure 5. Chronic back pain DISCHARGE INSTRUCTIONS: Discharge home today. Continue medications as listed per nursing reconciliation. Referral to Welding Machine Operator [place], Dr. Amato. They will review referral and reach out to schedule an appointment. Appointment with Dr. Lacy's office March 11 at 1:45pm. MEDICATIONS AT DISCHARGE: Xanax 0.5mg PO QID PRN Zanaflex 4mg PO Q 8 hours Percocet 7.5-325mg PO Q 6 hours PRN Gabapentin 300mg PO bedtime Diltiazem 60mg PO BID Losartan-hydrochlorothiazide 50-12.5mg Po daily Oxybutynin 5mg PO TID Trelegy Ellipta 200-62.5-25mcg one inhalation daily Pravastatin 80mg PO daily Metformin 500mg PO bedtime Symbicort 160-4.5mcg two inhalations BID Mirtazapine 7.5mg PO BEDTIME Levothyroxine 50mcg PO daily Losartan 25mg PO daily Metformin 1000mg PO daily Albuterol sulfate two puff inhalation Q 4 hours PRN DIET INSTRUCTIONS: Regular diet ACTIVITY: Gradually resume activity as tolerated HOSPITAL COURSE: 76 year old white female who was directly admitted was seen previously in ER had hyponatremia with sodium of 128 was experiencing weakness and dizziness. We admitted her for IV fluids to improve sodium today is 137. Initial chest CT was abnormal in ER then CT read as chronic middle lobe consolidation. She had been in ER at [facility] a few weeks ago and chest CT was read as partial collapse versus underlying neoplasm. The patient missed followup in office. We will refer her now to pulmonology. These findings have been discussed. Smoking cessation advised. We have attempted to refer to Home Health for PT/OT but due to staffing issues they aren't available. We will discharge home in stable condition. She refuses outpatient PT/OT. TIME SPENT: More than 60 minutes. SUSAN
--- NOTE | 2022-03-01 12:34 | PN ---
DATE OF SERVICE: 02/27/22 SUBJECTIVE: 76 year old white female hospitalized with dizziness and a lot of other complaints, weakness. The patient had borderline hyponatremia. The patient's carotid scan was acceptable with no significantly occluded carotid arteries. Sodium has gone up to 135. REVIEW OF SYSTEMS: CONSTITUTIONAL: No night sweats. No fatigue, malaise, lethargy. No fever or chills. HEENT: Eyes: No visual changes. No eye pain. No eye discharge. ENT: No runny nose. No epistaxis. No sinus pain. No sore throat. No odynophagia. No congestion. RESPIRATORY: No cough, no congestion. No hemoptysis. Shortness of breath of breath on exertion. CARDIOVASCULAR: No angina symptoms. No CHF symptoms. No atypical chest pain for CAD. No palpitations. No PND. No orthopnea. GASTROINTESTINAL: No abdominal pain. No nausea or vomiting. No diarrhea or constipation. No hematemesis. No hematochezia. GENITOURINARY: No urgency. No frequency. No dysuria. No hematuria. No obstructive symptoms. No discharge. No pain. No significant abnormal bleeding. MUSCULOSKELETAL: No musculoskeletal pain; no joint swelling. NEUROLOGICAL: No headache. No neck pain. No syncope. No seizures. No dizziness. PSYCHIATRIC: Not anxious. No depression. No suicidal thoughts. No homicidal thoughts. SKIN: No rash. No lesions. No wounds. ENDOCRINE: No unexplained weight loss. No weight gain. HEMATOLOGIC/LYMPHATIC: No anemia. No purpura. No petechiae. No prolonged or excessive bleeding. No palpable lymph nodes. PHYSICAL EXAMINATION: VITAL SIGNS: Temperature 97, pulse 70, respiratory rate 16, blood pressure 133/74, pulse ox 94% on room air. HEENT: Head normocephalic, atraumatic. Eyes: Extraocular muscles are intact. Pupils are equal, round and reactive to light and accommodation. Ears: No lesions. Nose appeared normal. Throat: No exudate or erythema. NECK: Supple. No JVD, no carotid bruit. No lymphadenopathy or thyromegaly. LUNGS: Decreased breath sounds but clear to auscultation. Percussion note normal. Chest symmetrical. HEART: S1, S2, no S3. No murmurs. No cyanosis or clubbing. No ascites. Pulses: Dorsalis pedis and posterior tibial pulses +1 to +2 bilaterally. ABDOMEN: Soft. Nontender. Bowel sounds active. No CVA tenderness. No mass felt. EXTREMITIES: No edema. Full range of motion of all extremities, equal. NEUROLOGIC: No focal deficit. Cranial nerves II through XII are grossly intact. No headache. No double vision. SKIN: Not dry. Intact. Turgor - normal. LYMPHATIC: No palpable lymph nodes/no lymphedema. MUSCULOSKELETAL: Normal joints with no swelling. Muscle tone is normal. LABS: Hgb 11, hct 33, WBC 3,900 normal differential, creatinine 0.6, BUN 10, potassium 3.7. ASSESSMENT: 1. Dizziness is multifactorial could be related to vestibular dysfunction. The patient cochlear transplant on one of the ears but she is still hard of hearing. A lot dizziness comes from vestibular dysfunction. The patient hemodynamically is stable. Cardiovascular status is stable. Respiratory status is somewhat compromised from heavy smoking and chronic lung disease. The patient is obese with BMI 35, sedentary lifestyle. PLAN: 1. Advised to keep walking, lose weight. 2. Continue fluids. 3. Advised to go to assisted living, vould be helped by the people. TIME SPENT: More than 30 minutes. Plan and coordination of the patient's care discussed in the presence of nurse. SUSAN
--- NOTE | 2022-03-02 13:26 | PN ---
DATE OF SERVICE: 03/01/22 SUBJECTIVE: The patient was seen and examined with the Nurse Practitioner. The patient's condition is stable. Her consolidation which is stable to be evaluated by pulmonary physician. She has agreed to go. The patient was seen and examined with the Nurse Practitioner. Condition is otherwise stable. Counseling for smoking done. Counseling for weight loss done. Counseling for exercise and lifestyle changes done. Prognosis is not good because she is very uncooperative. Family wants her to go to Assisted Living but she has declined. She is not really able to take care of herself at home. The son who lives with is also working and not dependable. TIME SPENT: More than 30 minutes. Plan and coordination of the patient's care discussed in the presence of nurse. SUSAN
--- NOTE | 2022-03-02 13:26 | PN ---
ADMISSION DAY: Level 5 REST OF THEM: Intermediate FINAL DAY: D as in discharge MTDD
== END 2022-03-01 12:24 | disposition home or self-care (01) | DRG 641 ==
LOC: LAB 11:41 → MEDSURG A 13:47
PROVIDERS: ADMIT Internal Medicine; ATTEND Internal Medicine
DX: E55.9 Vitamin D deficiency, unspecified; Z79.84 Long term (current) use of oral hypoglycemic drugs; I10 Essential (primary) hypertension; F17.210 Nicotine dependence, cigarettes, uncomplicated; Z79.899 Other long term (current) drug therapy; Z51.81 Encounter for therapeutic drug level monitoring; Z91.14 Patient's other noncompliance with medication regimen; K21.9 Gastro-esophageal reflux disease without esophagitis; M62.81 Muscle weakness (generalized); F32.A Depression, unspecified; E11.9 Type 2 diabetes mellitus without complications; R91.8 Other nonspecific abnormal finding of lung field; R42 Dizziness and giddiness; E03.9 Hypothyroidism, unspecified; F41.9 Anxiety disorder, unspecified; M54.9 Dorsalgia, unspecified; R60.0 Localized edema; Z20.822 Contact with and (suspected) exposure to COVID-19; Z96.21 Cochlear implant status; D64.9 Anemia, unspecified; E78.5 Hyperlipidemia, unspecified; Z91.11 Patient's noncompliance with dietary regimen; E87.1 Hypo-osmolality and hyponatremia; J44.9 Chronic obstructive pulmonary disease, unspecified; J96.10 Chronic respiratory failure, unspecified whether with hypoxia or hypercapnia

== ENCOUNTER 2022-05-03 10:23 | Inpatient (IN) ==
[2022-05-03 10:42] LABS: BORDETELLA PARAPERTUSSIS (PCR) NOT DETECTED (NOT DETECT); BORDETELLA PERTUSSIS (PCR) NOT DETECTED (NOT DETECT); CHLAMYDIA PNEUMONIAE (PCR) NOT DETECTED (NOT DETECT); CORONAVIRUS 229E (PCR) NOT DETECTED (NOT DETECT); CORONAVIRUS HKU1 (PCR) NOT DETECTED (NOT DETECT); CORONAVIRUS NL63 (PCR) NOT DETECTED (NOT DETECT); CORONAVIRUS OC43 (PCR) NOT DETECTED (NOT DETECT); HUMAN METAPNEUMOVIRUS (PCR) NOT DETECTED (NOT DETECT); HUMAN RHINOVIRUS/ENTEROV (PCR) NOT DETECTED (NOT DETECT); INFLUENZA B (PCR) NOT DETECTED (NOT DETECT); MYCOPLASMA PNEUMONIAE (PCR) NOT DETECTED (NOT DETECT); PARAINFLUENZA VIRUS 1 (PCR) NOT DETECTED (NOT DETECT); PARAINFLUENZA VIRUS 2 (PCR) NOT DETECTED (NOT DETECT); PARAINFLUENZA VIRUS 3 (PCR) NOT DETECTED (NOT DETECT); PARAINFLUENZA VIRUS 4 (PCR) NOT DETECTED (NOT DETECT); RESPIRATORY SYNCYTIAL V (PCR) NOT DETECTED (NOT DETECT)
[2022-05-03 11:39] LABS: ADENOVIRUS (PCR) NOT DETECTED (NOT DETECT)
[2022-05-03 11:40] LABS: SARS_COV_2 (PCR) NOT DETECTED (NOT DETECT)
[2022-05-03] MEDS ORDERED: ATROPINE SULFATE PFS IVP PRN (12:29)
[2022-05-03] MEDS ORDERED: TYLENOL PO PRN (12:29)
[2022-05-03] MEDS ORDERED: NITROSTAT SL PRN (12:29)
[2022-05-03] MEDS ORDERED: SODIUM CHLORIDE 1,000 ML IV SCH (12:30)
[2022-05-03 12:51] VITALS: BMI 36.3
[2022-05-03] MEDS ORDERED: DECADRON IM SCH (13:00)
[2022-05-03] MEDS ORDERED: DECADRON IM ONE (13:16)
[2022-05-03 13:46] LABS: BASOPHILS % (AUTO) 0.3 % (0.0-3.0); EOSINOPHILS # (AUTO) 0.1 K/ul (0.0-0.7); HEMATOCRIT 33.9 % (37.0-47.0); IMMATURE GRANULOCYTE # (AUTO) 0.1 (0.0-1.0); IMMATURE GRANULOCYTE % (AUTO) 1.1 % (0.0-5.0); LYMPHOCYTES # (AUTO) 2.1 K/uL (0.60-3.4); LYMPHOCYTES % (AUTO) 26.1 (10.0-50.0); MEAN CORPUSCULAR HEMOGLOBIN 29.1 pg (27.0-31.0); MEAN CORPUSCULAR HGB CONC 32.4 (31.8-35.4); MEAN CORPUSCULAR VOLUME 89.7 fl (81.0-99.0); MONOCYTES # (AUTO) 0.5 K/uL (0.4-2.0); MONOCYTES % (AUTO) 5.9 (0-10); NEUTROPHILS # (AUTO) 5.2 K/ul (2.0-6.9); NEUTROPHILS % (AUTO) 65.6 % (42.2-75.2); PLATELET COUNT 215 10^3/uL (140-440); RDW COEFFICIENT OF VARIATION 13.9 % (11.6-14.8); RED BLOOD COUNT 3.78 10^6/ul (4.20-5.40); WHITE BLOOD COUNT 7.85 K/ul (4.6-10.2)
[2022-05-03] MEDS: PERCOCET 7.5-325 PO PRN ×2 (13:52→20:40)
[2022-05-03 13:58] LABS: ALANINE AMINOTRANSFERASE 14.8 U/L (0-35); ALBUMIN 3.97 g/dL (3.5-5.0); ALKALINE PHOSPHATASE 104.4 U/L (53-141); ASPARTATE AMINO TRANSFERASE 24.8 U/L (14-36); BILIRUBIN,TOTAL 0.57 mg/dL (0.2-1.3); BLOOD UREA NITROGEN 23.3 mg/dL (7-17); CALCIUM 9.15 mg/dL (8.4-10.2); CARBON DIOXIDE 28.5 mmol/L (22-30.0); CHLORIDE 105.5 mmol/L (98-107); CREATINE KINASE 31.7 U/L (30-135); CREATININE 0.71 mg/dL (0.60-1.30); GLUCOSE 165.7 mg/dL (74-106); POTASSIUM 4.04 mmol/L (3.5-5.1); TOTAL PROTEIN 6.91 g/dL (6.3-8.2)
[2022-05-03 14:10] LABS: TROPONIN I < 0.012 ng/ml (0.0000-0.120)
[2022-05-03] MEDS: DITROPAN PO SCH ×2 (15:19→20:40)
--- NOTE | 2022-05-03 17:26 | CT ---
EXAM: CT THORAX HISTORY: Shortness of breath. TECHNIQUE: CT thorax with and without intravenous contrast. Multiplanar images presented. COMPARISON: 04/08/2022 FINDINGS: Heart size is upper limit normal. There is mild atherosclerotic disease. Coronary artery calcifications are present. No mediastinal lymphadenopathy. Redemonstration of a discoid consolidat ion in the right middle lobe which appears similar to that previously seen. Lungs are otherwise unre markable. No vascular congestion or pleural fluid. The bones reveal moderately severe degenerative changes of the spine. IMPRESSION: 1. Persistent discoid opacity in the right middle lobe similar to that previously seen may represent atelectasis or pneumonia. Less likely a neoplastic process. Lungs are otherwise clear. 2. Atherosclerotic disease. All CT scans are performed using dose optimization techniques as appropriate to the performed exam an d include at least one of the following: Automated exposure control, adjustment of the mA and/or kV according t o size, and the use of iterative reconstruction technique.
[2022-05-03 17:38] LABS: BILIRUBIN,URINE Negative (NEGATIVE); CLARITY,URINE Clear (CLEAR); COLOR,URINE Yellow (YELLOW); GLUCOSE, URINE (UA) Negative (NEGATIVE); KETONES,URINE Negative (NEGATIVE); LEUKOCYTE ESTERASE ,URINE Negative (NEGATIVE); NITRITE,URINE Negative (NEGATIVE); PH,URINE 6.5 (5-9); PROTEIN,URINE Negative (NEGATIVE); URINE, BLOOD Negative (NEGATIVE); UROBILINOGEN,URINE 0.2 (0.2)
[2022-05-03] MEDS: CARDIZEM PO SCH (20:40)
[2022-05-03] MEDS: SYMBICORT 160-4.5 MCG INHALER IH SCH (20:40)
[2022-05-03] MEDS: REMERON PO SCH (20:40)
[2022-05-03] MEDS: HUMULIN R SUBCUT PRN (20:41)
[2022-05-03] MEDS: XANAX PO PRN (20:45)
[2022-05-03] MEDS ORDERED: GLUCOPHAGE PO SCH (21:00)
[2022-05-03 21:01] LABS: TROPONIN I < 0.012 ng/ml (0.0000-0.120)
[2022-05-04 05:21] LABS: BASOPHILS % (AUTO) 0.4 % (0.0-3.0); EOSINOPHILS % (AUTO) 0.4 % (0.0-7.0); HEMATOCRIT 32.4 % (37.0-47.0); HEMOGLOBIN 10.6 g/dl (12.0-16.0); IMMATURE GRANULOCYTE # (AUTO) 0.1 (0.0-1.0); IMMATURE GRANULOCYTE % (AUTO) 1.5 % (0.0-5.0); LYMPHOCYTES # (AUTO) 1.3 K/uL (0.60-3.4); LYMPHOCYTES % (AUTO) 23.3 (10.0-50.0); MEAN CORPUSCULAR HEMOGLOBIN 28.7 pg (27.0-31.0); MEAN CORPUSCULAR HGB CONC 32.7 (31.8-35.4); MEAN CORPUSCULAR VOLUME 87.8 fl (81.0-99.0); MONOCYTES # (AUTO) 0.3 K/uL (0.4-2.0); MONOCYTES % (AUTO) 5.5 (0-10); NEUTROPHILS # (AUTO) 3.8 K/ul (2.0-6.9); NEUTROPHILS % (AUTO) 68.9 % (42.2-75.2); PLATELET COUNT 204 10^3/uL (140-440); RDW COEFFICIENT OF VARIATION 13.4 % (11.6-14.8); RED BLOOD COUNT 3.69 10^6/ul (4.20-5.40)
[2022-05-04 05:31] LABS: ALBUMIN 3.75 g/dL (3.5-5.0); ALKALINE PHOSPHATASE 95.7 U/L (53-141); ASPARTATE AMINO TRANSFERASE 15.9 U/L (14-36); BILIRUBIN,TOTAL 0.53 mg/dL (0.2-1.3); BLOOD UREA NITROGEN 23.3 mg/dL (7-17); CALCIUM 9.11 mg/dL (8.4-10.2); CARBON DIOXIDE 28.8 mmol/L (22-30.0); CHLORIDE 108.3 mmol/L (98-107); CREATININE 0.6 mg/dL (0.60-1.30); GLUCOSE 144.3 mg/dL (74-106); POTASSIUM 4.22 mmol/L (3.5-5.1); SODIUM 141.9 mmol/L (134.5-145); TOTAL PROTEIN 6.68 g/dL (6.3-8.2)
[2022-05-04] MEDS: PERCOCET 7.5-325 PO PRN ×2 (05:48→12:27)
[2022-05-04] MEDS: SYNTHROID PO SCH (05:48)
--- NOTE | 2022-05-04 08:11 | DI ---
EXAM: Two views of the right knee HISTORY: Right knee pain. COMPARISON: None. FINDINGS: Moderate tricompartmental degenerative changes including chondrocalcinosis, osteophytes, and surface irregularity, and joint space loss. No fracture. No dislocation. No visible large joint effusion. IMPRESSION: Moderate osteoarthritis.
[2022-05-04] MEDS ORDERED: GLUCOPHAGE PO SCH (08:30)
[2022-05-04] MEDS ORDERED: NON-FORMULARY MEDICATION (Fluticasone-Umeclidin-Vilanter [Trelegy Ellipta] 200-62.5-25 mcg IH SCH (09:00)
[2022-05-04] MEDS: COZAAR PO SCH (09:31)
[2022-05-04] MEDS: SPIRIVA IH SCH (09:31)
[2022-05-04] MEDS: XANAX PO PRN ×2 (09:32→16:54)
[2022-05-04] MEDS: ZANAFLEX PO PRN (09:32)
[2022-05-04] MEDS: CARDIZEM PO SCH ×2 (09:32→20:40)
[2022-05-04] MEDS: DITROPAN PO SCH ×3 (09:32→20:40)
[2022-05-04] MEDS: PRAVACHOL PO SCH (09:32)
[2022-05-04] MEDS: SYMBICORT 160-4.5 MCG INHALER IH SCH ×2 (09:33→20:47)
--- NOTE | 2022-05-04 09:51 | PCM.PROG ---
Attending Provider: ATTENDING PROVIDER: Dr. SHIRA DAIZ This patient is seen with Lelo Norman, Nurse Practitioner. DATE OF SERVICE: 05/04/22 SUBJECTIVE: This 76 year old /WHITE F was hospitalized 05/03/22. X-ray right knee showed no fracture, still complaining of right knee pain with mild swelling. Increased pain in back as well. REVIEW OF SYSTEMS: CONSTITUTIONAL: No night sweats. No fatigue, malaise, lethargy. No fever or chills. HEENT: Eyes: No visual changes. No eye pain. No eye discharge. ENT: No runny nose. No epistaxis. No sinus pain. No odynophagia. No congestion. RESPIRATORY: No cough, no congestion. No hemoptysis. No shortness of breath. CARDIOVASCULAR: No angina symptoms. No CHF symptoms. No atypical chest pain for CAD. No palpitations. No orthopnea.. GASTROINTESTINAL: No abdominal pain. No nausea or vomiting. No diarrhea or constipation. No hematemesis. No hematochezia. GENITOURINARY: No urgency. No frequency. No dysuria. No hematuria. No o bstructive symptoms. No discharge. No pain. No significant abnormal bleeding. MUSCULOSKELETAL: No musculoskeletal pain; no joint swelling. Back pain. Right shoulder pain. Right knee pain. NEUROLOGICAL: Awake, alert, oriented to time, place and person. No headache. No neck pain. No syncope. No seizures. No dizziness. PSYCHIATRIC: Not anxious. No depression. No suicidal thoughts. No homicidal thoughts. SKIN: No rash. No lesions. No wounds. ENDOCRINE: No unexplained weight loss. No weight gain. HEMATOLOGIC/LYMPHATIC: No anemia. No purpura. No petechiae. No prolonged or excessive bleeding. No palpable lymph nodes. PHYSICAL EXAMINATION: GENERAL: The patient is awake, alert and oriented, lying in bed in no distress. VITAL SIGNS: Temperature 97.4 F, Pulse 64, Respiratory Rate 20, BP 159/81, Pulse Ox 98% HEENT: Head normocephalic, atraumatic. Eyes: Extraocular muscles are intact. Pupils are equal, round and reactive to light and accommodation. Ears: No lesi ons. Nose appeared normal. Throat: No exudate or erythema. NECK: Supple. No JVD, no carotid bruit. No lymphadenopathy or thyromegaly. LUNGS: Diminished breath sounds. Clear to auscultation. Percussion note normal. Chest symmetrical. HEART: S1, S2, no S3. No murmurs. No cyanosis or clubbing. No ascites. Pulses: Dorsalis pedis and posterior tibial pulses +1 to +2 both sides. ABDOMEN: Soft. Non-tender. Bowel sounds active. No CVA tenderness. No mass felt. EXTREMITIES: Mild swelling of right knee. Full range of motion of all extremities, equal. NEUROLOGIC: No focal deficit. Cranial nerves II through XII are grossly intact. No headache. No double vision. SKIN: Not dry. Intact. Turgor-normal. LYMPHATIC: No palpable lymph nodes/no lymphedema. MUSCULOSKELETAL: Normal joints with no swelling. Muscle tone is normal. LAB REVIEW: 05/04/22 05:00 05/04/22 05:00 05/04/22 05:00: Sodium 141.9, Potassium 4.22, Chloride 108.3 H, Carbon Dioxide 2 8.8, Anion Gap 9.02, BUN 23.3 H, Creatinine 0.60, Estimated GFR (MDRD) 97.00, BUN/Creatinine Ratio 38.83, Glucose 144.3 H, Calcium 9.11, Total Bilirubin 0.53, AST 15.9, ALT 14.0, Alkaline Phosphatase 95.7, Total Protein 6.68, Albumin 3.75, Globulin 2.93, Albumin/Globulin Ratio 1.27 05/04/22 05:00: WBC 5.50, RBC 3.69 L, Hgb 10.6 L, Hct 32.4 L, MCV 87.8, MCH 28.7, MCHC 32.7, RDW Coeff of [place] 13.4, Plt Count 204, Immature Gran % (Auto) 1.5, Neut % (Auto) 68.9, Lymph % (Auto) 23.3, [place] % (Auto) 5.5, Eos % (Auto) 0.4, Baso % (Auto) 0.4, Neut # (Auto) 3.8, Lymph # (Auto) 1.3, [place] # (Auto) 0.3 L, Eos # (Auto) 0.0, Baso # (Auto) 0.0, Immature Gran # (Auto) 0.1 05/03/22 20:28: Total Creatine Kinase 29.0 L, Troponin I < 0.012 05/03/22 17:10: Urine Color Yellow, Urine Clarity Clear, Urine pH 6.5, Ur Specific [place] 1.025, Urine Protein Negative, Urine Glucose (UA) Negative, Urine Ketones Negative, Urine Blood Negative, Urine Nitrite Negative, Urine Bilirubin Negative, Urine Urobilinogen 0.2, Ur Leukocyte Esterase Negative 05/03/22 13:35: Sodium 140.0, Potassium 4.04, Chloride 105.5, Carbon Dioxide 28.5, Anion Gap 10.04, BUN 23.3 H, Creatinine 0.71, Estimated GFR (MDRD) 80.00, BUN/Creatinine Ratio 32.81, Glucose 165.7 H, Calcium 9.15, Total Bilirubin 0.57, AST 24.8, ALT 14.8, Alkaline Phosphatase 104.4, Total Creatine Kinase 31.7, Troponin I < 0.012, Total Protein 6.91, Albumin 3.97, Globulin 2.94, Albumin/Globulin Ratio 1.35 05/03/22 13:35: WBC 7.85, RBC 3.78 L, Hgb 11.0 L, Hct 33.9 L, MCV 89.7, MCH 29.1, MCHC 32.4, RDW Coeff of [place] 13.9, Plt Count 215, Immature Gran % (Auto) 1.1, Neut % (Auto) 65.6, Lymph % (Auto) 26.1, [place] % (Auto) 5.9, Eos % (Auto) 1.0, Baso % (Auto) 0.3, Neut # (Auto) 5.2, Lymph # (Auto) 2.1, [place] # (Auto) 0.5, Eos # (Auto) 0.1, Baso # (Auto) 0.0, Immature Gran # (Auto) 0.1 05/03/22 10:30: Adenovirus (PCR) Not detected, B. pertussis DNA (PCR) Not detected, B.parapertussis DNA PCR Not detected, C. pneumoniae DNA (PCR) Not detected, Coronavirus OC43 (PCR) Not detected, Coronavirus HKU1 (PCR) Not detected, Coronavirus 229E (PCR) Not detected, Coronavirus NL63 (PCR) Not detected, Human Metapneumovir PCR Not detected, Influenza Type A (PCR) Not detected, Influenza B (RT-PCR) Not detected, M. pneumoniae (PCR) Not detected, Parainfluenza 1 (PCR) Not detected, Parainfluenza 2 (PCR) Not detected, Parainfluenza 3 (PCR) Not detected, Parainfluenza 4 (PCR) Not detected, RSV (PCR) Not detected, Entero/Rhino (PCR) Not detected, SARS-CoV-2 (PCR) Not detected ASSESSMENT: Please see below. 1. Generalized weakness 2. Right knee pain, status post fall 3. Chronic back pain 4. Diabetes Mellitus Type II 5. Hypertension 6. Endstage COPD 7. Chronic respiratory failure PLAN: 1. Toradol 15mg IM TID PRN 2. The patient is open to placement at rehab facility for PT/OT. We will do PT/OT evaluation here. Plan and coordination of the patient's care discussed in the presence of Manager Work and nurse. SCRIBED BY: Bee HERCULESist scribed while in presence of service performed by Dr. Diaz/Lelo Norman APRN on 05/04/22 ([id number])
[2022-05-04] MEDS: HUMULIN R SUBCUT PRN ×3 (11:24→21:42)
[2022-05-04] MEDS: VENTOLIN HFA (PER PUFF-WITH SPACER) IH PRN (13:48)
[2022-05-04] MEDS ORDERED: TESSALON PERLES PO PRN (15:06)
--- NOTE | 2022-05-04 16:34 | RS.PTINEVL ---
Subjective - Patient information Date of Evaluation: 05/04/22 Date of Arrival on Unit: 05/03/22 Admitted From:: Home Diagnosis: fall at home, R knee pain Usual Living Arrangement: Alone Living Arrangement Comments: pt has help at home Home Environment: House, Stairs (few) Medical History: Hypertension, COPD, Diabetes, Arthritis Medical History Comments:: chronic respiratory failure Surgical History: Cholecystectomy Surgical History Comments:: bety Subjective Information/ Patient Comments:: pt states that gabapentin made her fall. She reports that the medicine made her off balance. 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 prior to this admission: pt had help at home with some of her ADL's Current Level of Function: Partially Dependent Current Equipment Used at Home: oxygen at night, Wheeled walker Pain Assessement - Location low back pain Description: Radiating, Aching Pain Behavior: Facial Grimacing Pain Aggravating Factors: Changing Position, Standing, Walking Interventions - Objective Patient Orientation: Person, Place, Time, Situation Current Interventions: Oxygen (3 liters), Telemetry Observation: min edema BLE non pitting Range of Motion - ROM Right Upper Extremity AROM: WFL's Left Upper Extremity AROM: WFL's Right Lower Extremity AROM: WFL's Left Lower Extremity AROM: WFL's Muscle Strength - Muscle Strength Right Upper Extremity Strength: Mild Weakness (grossly 4/5) Left Upper Extremity Strength: Mild Weakness (grossly 4/5) Right Lower Extremity Strength: Mild Weakness (hip flex 4-/5, knee flex/ext 4/5, ankle DF/PF 4/5) Left Lower Extremity Strength: Mild Weakness (hip flex 4-/5, knee flex/ext 4/5, ankle DF/PF 4/5) Sensation - Sensation Right Upper Extremity Sensation: Impaired (burning, pain) Left Upper Extremity Sensation: Intact/Normal Right Lower Extremity Sensation: Impaired Left Lower Extremity Sensation: Impaired Comments: reports occasional n/t in BLE Palpation Palpation Findings: None/Normal Balance - Sitting Balance and Reactions Static Sitting Balance: Good Dynamic Sitting Balance: Good - Standing Balance and Reactions Static Standing Balance: Fair Dynamic Standing Balance: Poor Functional Mobility - Bed Mobility Rolling R/L: Independent Supine to Sit: Independent Sit to Supine: Independent - Transfers Sit to Stand: Supervision Stand to Sit: Supervision, CGA - Safety Awareness Safety Awareness: Fair SARAH INDEX SCORE: n/a Ambulation - Ambulation Assistive Device Used: Rolling Walker Orthotic/Prosthetic Device: No Distance: 100ft Assistance needed with Ambulation: CGA Gait Deviations: Wide Based gait, Forward posture, Short stride, Deviates from path Factors Affecting Ambulation: Decreased Balance, Breathing/O2 Saturation, Weak ness, Decreased Safety, Limited Endurance Treatment time - Time with patient Length of Evaluation: 21 Total treatment time: 26 Patient Education - Education Patient Education: Activity Modification, Education of Plan of Care Teaching Recipient: Patient Teaching Methods: Discussion, Demonstration Assessment - Assessment Problem List:: Decreased level of function, Requires training/education, Decreased safety/Risk of falls, Weakness, Pain limits previous level of function Rehab Potential: Good Further Therapy Indicated?: Yes Candidate for Swing Bed for Therapy Services?: Feel pt may not be a candidate for swing bed due to pt is currently near her prior level of function. Evaluation Complexity: HISTORY: Medium, EXAM OF BODY SYSTEMS: Medium, CLINICAL PRESENTATION: Medium, CLINICAL DECISION MAKING: Medium Patient's Goal(s): Go back home. Short Term Goals GOAL #1: pt transfer sit to/from stand independently. Goal to be met by: 05/06/22 GOAL #2: pt amb with rwx 140ft with SBA to CGA Goal to be met by: 05/06/22 GOAL #3: Improve BLE Strength 4 to 4+/5 Goal to be met by: 05/06/22 GOAL #4: . 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 Goal to be met by: 05/08/22 GOAL #2: pt ascend/descend 2 steps with HR CGA Goal to be met by: 05/08/22 GOAL #3: Improve dyn stand balance to fair. Goal to be met by: 05/08/22 Plan Plan of Care: Therapeutic EX, Therapeutic Activity Other:: gait training Frequency of Treatment: 1-2 X day, as tolerated Duration of Treatment: 4 days Anticipated Discharge Destination: possible LTC Treatment Diagnosis (ICD 10 Codes): impaired balance R26.81. gait difficulty R 26.2. weakness M62.81 Has the Physician been added for Co-signature?: Yes
[2022-05-04] MEDS: TORADOL IM PRN (19:06)
[2022-05-04] MEDS: REMERON PO SCH (20:41)
[2022-05-05] MEDS: ZANAFLEX PO PRN (00:07)
[2022-05-05 05:40] LABS: BASOPHILS % (AUTO) 0.6 % (0.0-3.0); EOSINOPHILS # (AUTO) 0.2 K/ul (0.0-0.7); EOSINOPHILS % (AUTO) 2.6 % (0.0-7.0); HEMATOCRIT 31.7 % (37.0-47.0); HEMOGLOBIN 10.3 g/dl (12.0-16.0); IMMATURE GRANULOCYTE # (AUTO) 0.1 (0.0-1.0); IMMATURE GRANULOCYTE % (AUTO) 1.4 % (0.0-5.0); LYMPHOCYTES # (AUTO) 2.6 K/uL (0.60-3.4); MEAN CORPUSCULAR HEMOGLOBIN 28.7 pg (27.0-31.0); MEAN CORPUSCULAR HGB CONC 32.5 (31.8-35.4); MEAN CORPUSCULAR VOLUME 88.3 fl (81.0-99.0); MONOCYTES # (AUTO) 0.5 K/uL (0.4-2.0); MONOCYTES % (AUTO) 6.8 (0-10); NEUTROPHILS # (AUTO) 3.5 K/ul (2.0-6.9); NEUTROPHILS % (AUTO) 50.6 % (42.2-75.2); PLATELET COUNT 216 10^3/uL (140-440); RDW COEFFICIENT OF VARIATION 13.4 % (11.6-14.8); RED BLOOD COUNT 3.59 10^6/ul (4.20-5.40); WHITE BLOOD COUNT 6.95 K/ul (4.6-10.2)
[2022-05-05] MEDS: SYNTHROID PO SCH (05:42)
[2022-05-05 05:57] LABS: ALANINE AMINOTRANSFERASE 12.1 U/L (0-35); ALBUMIN 3.54 g/dL (3.5-5.0); ALKALINE PHOSPHATASE 83.6 U/L (53-141); ASPARTATE AMINO TRANSFERASE 16.7 U/L (14-36); BILIRUBIN,TOTAL 0.63 mg/dL (0.2-1.3); BLOOD UREA NITROGEN 33.3 mg/dL (7-17); CALCIUM 8.83 mg/dL (8.4-10.2); CARBON DIOXIDE 29.8 mmol/L (22-30.0); CHLORIDE 106.6 mmol/L (98-107); CREATININE 0.66 mg/dL (0.60-1.30); GLUCOSE 129.6 mg/dL (74-106); POTASSIUM 3.92 mmol/L (3.5-5.1); SODIUM 139.8 mmol/L (134.5-145); TOTAL PROTEIN 6.3 g/dL (6.3-8.2)
--- NOTE | 2022-05-05 08:16 | HP ---
DATE OF SERVICE: 05/03/22 REASON FOR HOSPITALIZATION/HISTORY OF PRESENT ILLNESS: Shortness of breath, weakness, fell, hurt right knee. ER 05/01/22 with shortness of breath and fall. Po2 55. Can't walk- right knee hurting. PAST MEDICAL HISTORY: COPD Dyslipidemia GERD Depression Hyponatremia Anxiety GORDY PAST SURGICAL HISTORY: Gallbladder Appendix Hysterectomy REVIEW OF SYSTEMS: CONSTITUTIONAL: No fever, Fatigue. HEENT: No sinus drainage, no sore throat. RESPIRATORY: Cough, no congestion. CARDIOVASCULAR: No atypical chest pain for coronary artery disease. No angina, CHF symptoms, palpitations. Shortness of breath. GASTROINTESTINAL: No melena or abdominal pain. No GERD. GENITOURINARY: No hematuria, no prostatism, no polyuria. LAW LIBRARIAN: No blackout, no dizziness, no headache, no double vision. GAIT: Wheelchair. MUSCULOSKELETAL: Osteoarthritis pain, no joint swelling. ENDOCRINE: No weight loss, no weight gain. SKIN: Not dry, no rash. PSYCHIATRIC: Anxious, no depression, no suicidal thoughts, no homicidal thoughts. SOCIAL HISTORY: Marital Status: . Alcohol Usage: Yes. Tobacco Usage: No. FAMILY HISTORY: Father Mother Brother 0 Sister 1 MEDICATIONS: Pravachol 80mg daily Metformin 500mg HS Diltiazem 60mg twice Tizanidine 4mg Q 8 hours Trelegy Ellipta 200/6.25/25 Albuterol HFA 1-2 puffs Q 4 hours Oxybutynin 5mg three times daily Losartan Potassium 25mg daily Levothyroxine 50mcg daily Oxycodone 7.5-325mg Q 6 hours Mirtazepine 15mg Alprazolam 0.5mg three times a day ALLERGIES: Wellbutrin-Jittery Zocor-Rash Lipitor Crestor-Muscles pain PHYSICAL EXAMINATION: V/S: Pulse 114, Blood pressure 124/82, temperature 99, oxygen saturation 95%. GENERAL APPEARANCE: Oriented times three. HEENT: Normal. NECK: No JVP, no bruits. RESPIRATORY: Diminished breath sounds. CARDIOVASCULAR: S1, S2, no S3, Tachy, no murmur. No cyanosis, clubbing. No ascites. GI/ABDOMEN: No tenderness. Bowel sounds are active. EXTREMITIES: Trace pedal edema, pulses +1, equal. LAW LIBRARIAN: Deep tendon reflexes, sensory, motor and gait all normal. RECTAL: Refuse/PELVIC: 10/07 [facility]. ASSESSMENT: 1. Shortness of breath 2. Right knee pain 3. Status post fall 4. Right lobar consolidation 5. Right lower lobe nodule 6. Cervical radiculopathy 7. Right hand/arm pain 8. Anemia 9. Vitamin D 10.Status post cochlear implant 11.Hypertension 12.Diabetes Mellitus type II 13.Dyslipidemia 14.COPD 15.GERD 16.Hypothyroidism 17.Dependent leg edema 18.Depression sees Dr. Guo 19.Anxiety sees Dr. 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 Obesity 26. High risk cardiac event/CVA 27. Noncompliant diet, medications, lifestyle PLAN: 1. Routine telemetry orders 2. CBC and CMP now and daily 3. U/A 4. CT chest with and without 5. 1cc Decadron (4mg) IM 6. Continue home medications 7. No Gabapentin 8. Normal saline IV at 75cc times one liter 9. O2 continuous 10. Fall precautions. 11. X-ray right knee TIME SPENT: More than 70 minutes. MTDD
[2022-05-05] MEDS ORDERED: GLUCOPHAGE PO SCH (08:30)
[2022-05-05] MEDS: PERCOCET 7.5-325 PO PRN ×2 (08:56→15:02)
[2022-05-05] MEDS: SYMBICORT 160-4.5 MCG INHALER IH SCH ×2 (09:00→21:13)
[2022-05-05] MEDS: SPIRIVA IH SCH (09:00)
[2022-05-05] MEDS: DITROPAN PO SCH ×3 (09:26→21:06)
[2022-05-05] MEDS: COZAAR PO SCH (09:26)
[2022-05-05] MEDS: CARDIZEM PO SCH ×2 (09:26→21:06)
[2022-05-05] MEDS: PRAVACHOL PO SCH (09:26)
[2022-05-05] MEDS: HUMULIN R SUBCUT PRN ×3 (11:46→21:07)
[2022-05-05] MEDS: TORADOL IM PRN ×2 (11:55→18:28)
[2022-05-05] MEDS: VENTOLIN HFA (PER PUFF-WITH SPACER) IH PRN (13:30)
[2022-05-05] MEDS: REMERON PO SCH (21:06)
[2022-05-06 05:14] VITALS: BP 147/77; TEMP 97
[2022-05-06 05:36] LABS: BASOPHILS # (AUTO) 0.1 K/uL (0-0.2); BASOPHILS % (AUTO) 0.8 % (0.0-3.0); EOSINOPHILS # (AUTO) 0.2 K/ul (0.0-0.7); EOSINOPHILS % (AUTO) 3.2 % (0.0-7.0); HEMATOCRIT 32.2 % (37.0-47.0); HEMOGLOBIN 10.5 g/dl (12.0-16.0); IMMATURE GRANULOCYTE # (AUTO) 0.1 (0.0-1.0); IMMATURE GRANULOCYTE % (AUTO) 2.1 % (0.0-5.0); LYMPHOCYTES # (AUTO) 2.5 K/uL (0.60-3.4); LYMPHOCYTES % (AUTO) 39.6 (10.0-50.0); MEAN CORPUSCULAR HEMOGLOBIN 29.5 pg (27.0-31.0); MEAN CORPUSCULAR HGB CONC 32.6 (31.8-35.4); MEAN CORPUSCULAR VOLUME 90.4 fl (81.0-99.0); MONOCYTES # (AUTO) 0.5 K/uL (0.4-2.0); MONOCYTES % (AUTO) 7.5 (0-10); NEUTROPHILS % (AUTO) 46.8 % (42.2-75.2); PLATELET COUNT 214 10^3/uL (140-440); RDW COEFFICIENT OF VARIATION 13.6 % (11.6-14.8); RED BLOOD COUNT 3.56 10^6/ul (4.20-5.40); WHITE BLOOD COUNT 6.29 K/ul (4.6-10.2)
[2022-05-06 05:50] LABS: ALANINE AMINOTRANSFERASE 10.9 U/L (0-35); ALBUMIN 3.45 g/dL (3.5-5.0); ALKALINE PHOSPHATASE 82.7 U/L (53-141); ASPARTATE AMINO TRANSFERASE 12.3 U/L (14-36); BILIRUBIN,TOTAL 0.55 mg/dL (0.2-1.3); BLOOD UREA NITROGEN 35.5 mg/dL (7-17); CALCIUM 8.22 mg/dL (8.4-10.2); CARBON DIOXIDE 26.3 mmol/L (22-30.0); CHLORIDE 106.1 mmol/L (98-107); CREATININE 0.6 mg/dL (0.60-1.30); GLUCOSE 107.1 mg/dL (74-106); POTASSIUM 4.04 mmol/L (3.5-5.1); SODIUM 138.3 mmol/L (134.5-145); TOTAL PROTEIN 6.32 g/dL (6.3-8.2)
[2022-05-06] MEDS: SYNTHROID PO SCH (06:09)
[2022-05-06] MEDS: PERCOCET 7.5-325 PO PRN (07:51)
[2022-05-06] MEDS: DITROPAN PO SCH (09:50)
[2022-05-06] MEDS: CARDIZEM PO SCH (09:51)
[2022-05-06] MEDS: COZAAR PO SCH (09:51)
[2022-05-06] MEDS: PRAVACHOL PO SCH (09:52)
[2022-05-06] MEDS: SYMBICORT 160-4.5 MCG INHALER IH SCH (09:53)
[2022-05-06] MEDS: SPIRIVA IH SCH (09:53)
--- NOTE | 2022-05-06 09:56 | PCM.PROG ---
Attending Provider: ATTENDING PROVIDER: Dr. SHIRA LACY This patient is seen with Lelo Norman, Nurse Practitioner. DATE OF SERVICE: 05/06/22 SUBJECTIVE: This 76 year old /WHITE F was hospitalized 05/03/22. Right knee pain has improved. Shortness of breath has improved. The patient has agreed to go to [facility] for rehab. Likely dizziness and recurrent falls due to generalized weakness, over use of medications. Gabapentin was discontinued. It is to be noted that 6 pills of unknown origin were found in the patient's bed, identified by Pharmacy as Xanax and not dispensed from out Pharmacy. The patient denied bringing them. REVIEW OF SYSTEMS: CONSTITUTIONAL: No night sweats. No fatigue, malaise, lethargy. No fever or chills. Weakness. HEENT: Eyes: No visual changes. No eye pain. No eye discharge. ENT: No runny nose. No epistaxis. No sinus pain. No odynophagia. No congestion. RESPIRATORY: No cough, no congestion. No hemoptysis. Shortness of breath. CARDIOVASCULAR: No angina symptoms. No CHF symptoms. No atypical chest pain for CAD. No palpitations. No orthopnea.. GASTROINTESTINAL: No abdominal pain. No nausea or vomiting. No diarrhea or constipation. No hematemesis. No hematochezia. GENITOURINARY: No urgency. No frequency. No dysuria. No hematuria. No obstructive symptoms. No discharge. No pain. No significant abnormal bleeding. MUSCULOSKELETAL: No musculoskeletal pain; no joint swelling. Chronic back pain. NEUROLOGICAL: Awake, alert, oriented to time, place and person. No headache. No neck pain. No syncope. No seizures. No dizziness. PSYCHIATRIC: Not anxious. No depression. No suicidal thoughts. No homicidal thoughts. SKIN: No rash. No lesions. No wounds. ENDOCRINE: No unexplained weight loss. No weight gain. HEMATOLOGIC/LYMPHATIC: No anemia. No purpura. No petechiae. No prolonged or excessive bleeding. No palpable lymph nodes. PHYSICAL EXAMINATION: GENERAL: The patient is awake, alert and oriented, lying in bed in no distress. VITAL SIGNS: Temperature 97.0 F, Pulse 72, Respiratory Rate 16, BP 147/77, Pulse Ox 100% HEENT: Head normocephalic, atraumatic. Eyes: Extraocular muscles are intact. Pupils are equal, round and reactive to light and accommodation. Ears: No lesions. Nose appeared normal. Throat: No exudate or erythema. NECK: Supple. No JVD, no carotid bruit. No lymphadenopathy or thyromegaly. LUNGS: Diminished breath sounds. Clear to auscultation. Percussion note normal. Chest symmetrical. HEART: S1, S2, no S3. No murmurs. No cyanosis or clubbing. No ascites. Pulses: Dorsalis pedis and posterior tibial pulses +1 to +2 both sides. ABDOMEN: Soft. Non-tender. Bowel sounds active. No CVA tenderness. No mass felt. EXTREMITIES: No edema. Full range of motion of all extremities, equal. NEUROLOGIC: No focal deficit. Cranial nerves II through XII are grossly intact. No headache. No double vision. SKIN: Not dry. Intact. Turgor-normal. LYMPHATIC: No palpable lymph nodes/no lymphedema. MUSCULOSKELETAL: Normal joints with no swelling. Muscle tone is normal. LAB REVIEW: 05/06/22 05:00 05/06/22 05:00 05/06/22 05:00: Sodium 138.3, Potassium 4.04, Chloride 106.1, Carbon Dioxide 26.3, Anion Gap 9.94, BUN 35.5 H, Creatinine 0.60, Estimated GFR (MDRD) 97.00, BUN/Creatinine Ratio 59.16, Glucose 107.1 H, Calcium 8.22 L, Total Bilirubin 0.55, AST 12.3 L, ALT 10.9, Alkaline Phosphatase 82.7, Total Protein 6.32, Albumin 3.45 L, Globulin 2.87, Albumin/Globulin Ratio 1.20 05/06/22 05:00: WBC 6.29, RBC 3.56 L, Hgb 10.5 L, Hct 32.2 L, MCV 90.4, MCH 29.5, MCHC 32.6, RDW Coeff of Sharon 13.6, Plt Count 214, Immature Gran % (Auto) 2.1, Neut % (Auto) 46.8, Lymph % (Auto) 39.6, Hamilton % (Auto) 7.5, Eos % (Auto) 3.2, Baso % (Auto) 0.8, Neut # (Auto) 3.0, Lymph # (Auto) 2.5, Hamilton # (Auto) 0.5, Eos # (Auto) 0.2, Baso # (Auto) 0.1, Immature Gran # (Auto) 0.1 ASSESSMENT: Please see below. 1. Status post fall 2. Right knee pain 3. Endstage COPD 4. Smoker 5. Noncompliant with medications, lifestyle and recommendations. PLAN: 1. Will discharge to [facility] for PT/OT 2. The patient receives pain medications from [facility], Dr. Reddy. She is to bring her pain medications from home. 3. We have discontinued Gabapentin 4. Other home medications will stay as before 5. Remeron was decreased to 7.5. 6. She will also continue to followup with Dr. Guo, she does telehealth visits. 7. She recently went to Dr. Amato, her followup on right lung lesion and she refuses to return. Plan and coordination of the patient's care discussed in the presence of Press Shop Supervisor and nurse. SCRIBED BY: TARA ALAS Director Of Exhibits scribed while in presence of service performed by Dr. Lacy/Lelo Norman APRN on 05/06/22 ([id number])
[2022-05-06] MEDS: XANAX PO PRN (09:58)
[2022-05-06] MEDS ORDERED: GLUCOPHAGE PO SCH (10:00)
--- NOTE | 2022-05-06 10:35 | DS ---
DATE OF SERVICE: 05/06/22 FINAL DIAGNOSIS: 1. Status post fall 2. Right knee pain 3. Endstage COPD 4. Smoker 5. Noncompliant with medications, lifestyle and recommendations. DISCHARGE INSTRUCTIONS: Discharge to [facility] today. Oxygen 2-3 liters currently at home at bedtime. use to maintain oxygen saturation above 90%. See medication list only change is a decreased in Remeron from 15mg at bedtime to 7.5mg at bedtime. Followup on correction rounds. CODE STATUS: DNR. Patient sees Pain Management. Patient si to being original bottle in with her at admission. MEDICATIONS AT DISCHARGE: Xanax 0.5mg PO TID Zanaflex 4mg PO Q 8 hours PRN Percocet 7.5-325mg one tablet PO Q 6 hours PRN Diltiazem 60mg PO BID Oxybutynin 5mg PO TID Trelegy Ellipta 200-62.5-25mcg one inhalation daily Pravastatin 80mg PO daily Metformin 500mg PO BID Symbicort 160-4.5mcg two puff inhalation BID Levothyroxine 50mcg PO daily Losartan 25mg PO daily Albuterol sulfate 30mcg two puff inhalation Q 4 hours PRN NEW PRESCRIPTIONS: Mirtazapine 7.5mg PO bedtime DISCONTINUED MEDICATIONS: Mirtazapine 15mg PO bedtime DIET INSTRUCTIONS: Regular. ACTIVITY: May participate in activities. Up with assistance of one and RWX. PT/OT to evaluate and treat. HOSPITAL COURSE: 76 year old white female direct admit from our office has experienced multiple falls at home over weekend and we to the ER. Po2 55. Still short of breath in the office, dizzy and complaining of right knee pain. She was admitted. Chest CT showed consolidation right lobe which she saw Dr. Amato for a couple of weeks ago. X-ray of right knee showed no fracture. She was given Decadron and Toradol for acute pain in knee. The patient was evaluated by physical therapy and found to be a good candidate for senior care rehab at [facility]. The patient is agreeable to go. We decreased Remeron to 7.5mg and discontinue Gabapentin as we felt these maybe contributing to recurrent falls. She receives pain medication [facility] Copeland [facility] and discussed medications with increased risk of falls. Family is aware. It is also to be noted that yesterday 6 pills of unknown origin were found in the patient's bed. Pharmacy identified as Xanax, not dispensed from out pharmacy. The patient denies taking any addition medication other than what is given here. Medication misuse is also expected for recurrent falls and weakness. Family is aware of all these issues and feels placement will be helpful. We will discharge to [facility] and followup on correction rounds. TIME SPENT: More than 60 minutes. SUSAN
[2022-05-06] MEDS: TORADOL IM PRN (10:37)
--- NOTE | 2022-05-11 14:18 | PN ---
DATE OF SERVICE: 05/04/22 SUBJECTIVE: The patient was seen and examined with the Nurse Practitioner. The patient's condition is stable. Her pO2 has normalized. The patient is hard of hearing, she is morbidly obese. Discussed about the patient's walking, exercise and losing weight. Advised to quit smoking, counseling done. Chronic lung disease with improvement in the blood gasses. TIME SPENT: More than 30 minutes. Plan and coordination of the patient's care discussed in the presence of nurse. SUSAN
--- NOTE | 2022-05-11 14:45 | PN ---
DATE OF SERVICE: 05/05/22 SUBJECTIVE: 76 year old white female hospitalized with shortness of breath, respiratory failure also had some arthritic pain. She has been falling lately. Today after I made the rounds recovered at least 5-6 Xanax laying on the floor along with a couple of other medications. According to the family the patient has been taking the medications at will. She is noncompliant. REVIEW OF SYSTEMS: CONSTITUTIONAL: No night sweats. No fatigue, malaise, lethargy. No fever or chills. HEENT: Eyes: No visual changes. No eye pain. No eye discharge. ENT: No runny nose. No epistaxis. No sinus pain. No sore throat. No odynophagia. No congestion. RESPIRATORY: No cough, no congestion. No hemoptysis. No shortness of breath. CARDIOVASCULAR: No angina symptoms. No CHF symptoms. No atypical chest pain for CAD. No palpitations. No PND. No orthopnea. GASTROINTESTINAL: No abdominal pain. No nausea or vomiting. No diarrhea or constipation. No hematemesis. No hematochezia. GENITOURINARY: No urgency. No frequency. No dysuria. No hematuria. No obstructive symptoms. No discharge. No pain. No significant abnormal bleeding. MUSCULOSKELETAL: No musculoskeletal pain; no joint swelling. Complained of arthritic pain all over body. NEUROLOGICAL: No headache. No neck pain. No syncope. No seizures. No dizziness. PSYCHIATRIC: Not anxious. No depression. No suicidal thoughts. No homicidal thoughts. SKIN: No rash. No lesions. No wounds. ENDOCRINE: No unexplained weight loss. No weight gain. HEMATOLOGIC/LYMPHATIC: No anemia. No purpura. No petechiae. No prolonged or excessive bleeding. No palpable lymph nodes. PHYSICAL EXAMINATION: GENERAL: The patient is oriented to time, place and person. VITAL SIGNS: Temperature 97.9. pulse 70, respiratory rate 20, blood pressure 160/80 and pulse ox 98% on room air. HEENT: Head normocephalic, atraumatic. Eyes: Extraocular muscles are intact. Pupils are equal, round and reactive to light and accommodation. Ears: No lesions. Nose appeared normal. Throat: No exudate or erythema. NECK: Supple. No JVD, no carotid bruit. No lymphadenopathy or thyromegaly. LUNGS: Decreased breath sounds but clear to auscultation. Percussion note normal. Chest symmetrical. HEART: S1, S2, no S3. No murmurs. No cyanosis or clubbing. No ascites. Pulses: Dorsalis pedis and posterior tibial pulses +1 to +2 bilaterally. ABDOMEN: Soft. Nontender. Bowel sounds active. No CVA tenderness. No mass felt. EXTREMITIES: No edema. Full range of motion of all extremities, equal. NEUROLOGIC: No focal deficit. Cranial nerves II through XII are grossly intact. No headache. No double vision. SKIN: Not dry. Intact. Turgor - normal. LYMPHATIC: No palpable lymph nodes/no lymphedema. MUSCULOSKELETAL: Normal joints with no swelling. Muscle tone is normal. LABS: Hgb 10, hct 31, WBC 6,900 normal differential, creatinine 0.6, BUN 33, potassium 3.9. ASSESSMENT: 1. Respiratory failure seems to have resolved 2. Severe chronic lung disease with continued smoking 3. Obesity 4. Chronic anemia 5. Generalized severe osteoarthritis 6. Hard of hearing PLAN: 1. The patient has agreed to go to the senior living where she may get some physical therapy. The patient is noncompliant of followup, lifestyle and medications. The patient has been very difficult even with the own family members. The patient has declined any of the maintenance like mammography, colonoscopy etc. TIME SPENT: More than 30 minutes. Plan and coordination of the patient's care discussed in the presence of nurseSteven DAVIS
== END 2022-05-06 11:10 | DRG 204 ==
LOC: LAB 10:23 → MEDSURG A 11:52
PROVIDERS: ADMIT Internal Medicine; ATTEND Internal Medicine
DX: Z20.822 Contact with and (suspected) exposure to COVID-19; Z91.14 Patient's other noncompliance with medication regimen; R91.1 Solitary pulmonary nodule; Z72.0 Tobacco use; J18.1 Lobar pneumonia, unspecified organism; M25.561 Pain in right knee; Z51.81 Encounter for therapeutic drug level monitoring; Z87.440 Personal history of urinary (tract) infections; R26.2 Difficulty in walking, not elsewhere classified; M54.12 Radiculopathy, cervical region; Z79.84 Long term (current) use of oral hypoglycemic drugs; E78.5 Hyperlipidemia, unspecified; R06.02 Shortness of breath; E66.9 Obesity, unspecified; M62.81 Muscle weakness (generalized); Z79.899 Other long term (current) drug therapy; K21.9 Gastro-esophageal reflux disease without esophagitis; R42 Dizziness and giddiness; Z91.81 History of falling; M54.50 Low back pain, unspecified; I10 Essential (primary) hypertension; J44.9 Chronic obstructive pulmonary disease, unspecified

== ENCOUNTER 2022-11-14 18:57 | Inpatient (IN) ==
[2022-11-14] MEDS ORDERED: ATIVAN IVP ONE (19:16)
[2022-11-14] MEDS ORDERED: DUONEB NEB STA ×2 (19:16→21:22)
[2022-11-14] MEDS ORDERED: SOLU-MEDROL 125 MG IVP ONE (19:16)
--- NOTE | 2022-11-14 19:22 | ED.PDOC ---
General ED Provider: Dr. SEKOU GOLDBERG Chief Complaint: Respiratory Complaint Stated Complaint: Comes to the Er with shortness of breath that started Two days ago. She has a history of COPD and continues to smoke. Has had multiple ER visit for same. Time Seen by Provider: 11/14/22 19:01 Information Source: Patient Primary Care Provider: SHIRA DIAZ MD Nursing and Triage Documentation Reviewed and Agree: Yes Does patient meet sepsis criteria?: No System Inflammatory Response Syndrome: Not Applicable Sepsis Protocol: For patient's 13 years and over: Temp is 96.8 and below OR 101 and greater Pulse >90 BPM Resp >20/minute Acutely Altered Mental Status Are patient's symptoms suggestive of a new infection, such as: -Pneumonia -Skin, Soft Tissue -Endocarditis -UTI -Bone, Joint Infection -Implantable Device -Acute Abdominal Infection -Wound Infection -Meningitis -Blood Stream Catheter Infection -Unknown Respiratory Complaint Exam Shortness of Air Complaint/Exam Onset/Duration: 2 days Symptoms Are: Still present Timing: Constant Initial Severity: Moderate Current Severity: Moderate Character: Reports Dyspnea at rest Associated Signs and Symptoms: Reports Cough, Wheezing and Chest pain Related History: Reports Similar episode History of Healthcare-Acquired Pneumonia: No Cardiac Risk Factors: Reports Smoking Tuberculosis Risk Factors: Reports None Home Oxygen Use: Yes Recent Stress Test: No Recent Echo/LV Function: No Respiratory Distress: Mild Stridor Present: No Tracheal Deviation: No Subcutaneous Emphysema: No Accessory Muscle Use: No Retractions: Not Present Diminished Breath Sounds: Yes Prolonged Expiratory Phase: Yes Unable to Speak Full Sentences: No Fatigue: No Leg Swelling: No Katy's Sign Present: No Grunting Respirations: No Kussmaul Respirations: No Differential Diagnoses: COPD Exacerbation and Bronchiolitis Quality Indicator For Non-Traumatic Chest Pain/Syncope: EKG Performed Review of Systems Review Of Systems Constitutional: Reports No symptoms Eyes: Reports No symptoms Respiratory: Reports Short of air Cardiac: Reports Chest pain GI: Reports No symptoms : Reports No symptoms Musculoskeletal: Reports No symptoms Skin: Reports No symptoms Neurological: Reports Anxiety Endocrine: Reports No symptoms All Other Systems: Reviewed and Negative [facility] Medical History (Updated 11/14/22 @ 23:05 by SEKOU GOLDBERG MD) Family History FATHER PAD (peripheral artery disease) Other Family history unknown Social History Smoking and tobacco status: Current every day smoker Tobacco type: cigarettes Smoking packs per day: 0.5 Smoking cigarettes per day: 10.0 Years smoked: 60 Smoking pack-years: 30.00 Adopted: No Caregiver/support person: Yes Foster care: No Household members: children, friend(s) and caregiver Housing: assisted living facility Marital status: W / Lives independently: No History of recent travel: No Seatbelt use: always Surgical History Female Reproductive History Menstrual Hx Hysterectomy: Yes Hx Tubal Ligation: No Physical Exam Physical Exam Appearance: Reports Well-appearing Ill-appearing: None Pain Distress: Mild Eyes: Reports GUIDO, EOMI and Conjunctiva clear ENT: Reports Nose normal Neck: Supple Respiratory: Reports Breath sounds diminished and Wheezes Cardiovascular: Reports RRR and Pulses normal GI/: Reports Not Examined Musculoskeletal: Reports Normal strength, ROM intact and No edema Skin: Reports Warm, Dry and Normal color Neurological: Reports Motor intact, Alert and Oriented Psychiatric: Reports Anxious Interpretation Radiology Interpretation Radiology Interpretation By: Radiologist Radiology Results: Positive Exam Interpreted: CXR (1. Scoliosis skews anatomy. It would be difficult to exclude infiltrate in the right perihilar region. Lungs are otherwise unremarkable. If symptoms persist, consider follow up with full inspiration, standing two-view chest radiography using PA and lateral technique.) EKG Interpretation Time of EKG #1: 19:38 Rate: Normal Rhythm: Sinus Ectopy: None Dodge: NL ST Segment: Normal Interpretation: no St Elevation Critical Care Note Critical Care Note Total Critical Care Time (mins): 0 Course Course 11/14/22 19:30 11/14/22 19:30 Orders, Labs, Meds: Lab Review 11/14/22 11/14/22 11/14/22 19:30 19:45 20:10 WBC 6.37 RBC 3.65 L Hgb 10.9 L Hct 31.7 L MCV 86.8 MCH 29.9 MCHC 34.4 RDW Coeff of [place] 13.3 Plt Count 239 Immature Gran % (Auto) 0.6 Neut % (Auto) 56.4 Lymph % (Auto) 33.4 [place] % (Auto) 7.7 Eos % (Auto) 1.6 Baso % (Auto) 0.3 Neut # (Auto) 3.6 Lymph # (Auto) 2.1 [place] # (Auto) 0.5 Eos # (Auto) 0.1 Baso # (Auto) 0.0 Immature Gran # (Auto) 0.0 VBG pH 7.56 H VBG pCO2 30 L VBG pO2 85 H VBG HCO3 26.9 H VBG O2 Saturation 97.7 H Sodium 138.4 Potassium 3.63 Chloride 105.8 Carbon Dioxide 28.0 Anion Gap 8.23 BUN 14.1 Creatinine 0.65 Estimated GFR (MDRD) 89.00 BUN/Creatinine Ratio 21.69 Glucose 184.4 H Lactic Acid 1.42 Calcium 9.50 Total Bilirubin 0.75 AST 17.8 ALT 17.1 Alkaline Phosphatase 92.1 Total Creatine Kinase 48.9 Troponin I < 0.012 Total Protein 7.01 Albumin 4.20 Globulin 2.81 Albumin/Globulin Ratio 1.49 Procalcitonin < 0.05 SARS CoV-2 RNA Rapid ALIA Negative Orders Category Date Time Status ADMIT PATIENT INPATIENT .TO [facility] (MONITORED BED) ADMISSION 11/14/22 21:06 Active EKG-(ED ONLY) Stat CARDIO 11/14/22 19:16 Completed EKG-(IP & OP ONLY) Routine CARDIO 11/15/22 07:00 Ordered NEBULIZER TREATMENT Stat CARDIO 11/14/22 19:17 Completed NEBULIZER TREATMENT Stat CARDIO 11/14/22 21:22 Ordered OXYGEN Routine CARDIO 11/14/22 21:22 Ordered ACTIVITY .Up With Assistance CARE 11/14/22 21:22 Active BLOOD GLUCOSE MONITORING (MED/SURG) 0630,1100,1700,2100 CARE 11/14/22 21:24 Active GIVE HS SNACK 2100 CARE 11/14/22 21:23 Active INTAKE & OUTPUT Q8HR CARE 11/14/22 21:06 Active TELEMETRY MONITORING TELE CARE 11/14/22 21:06 Active VITAL SIGNS Q4HR CARE 11/14/22 21:07 Active ADA 1800 ROWDY. DIET DIETARY 11/15/22 Breakfast Ordered HS SNACK DIETARY 11/14/22 Dinner Ordered ED APPLY O2 .ONCE EMERGENCY 11/14/22 19:16 Active ED .NET ARCHITECT APPLIED .ONCE EMERGENCY 11/14/22 19:16 Active ED IV/MEDIPORT/POWERPORT .ONCE EMERGENCY 11/14/22 19:16 Active ABG COOX Stat LAB 11/14/22 19:16 Ordered BASIC METABOLIC PANEL DAILY@0600 LAB 11/15/22 06:00 Ordered BASIC METABOLIC PANEL DAILY@0600 LAB 11/16/22 06:00 Ordered BLOOD CULTURE (ED ONLY) Stat LAB 11/14/22 19:30 Received CBC W/ AUTO DIFF DAILY@0600 LAB 11/15/22 06:00 Ordered CBC W/ AUTO DIFF DAILY@0600 LAB 11/16/22 06:00 Ordered CBC W/ AUTO DIFF Stat LAB 11/14/22 19:30 Completed COMPREHENSIVE METABOLIC PANEL Stat LAB 11/14/22 19:30 Completed COVID [SARS COV-2 RNA RAPID ALIA] Stat LAB 11/14/22 20:10 Completed CREATINE KINASE Q8H LAB 11/15/22 03:30 Ordered CREATINE KINASE Q8H LAB 11/15/22 11:30 Ordered CREATINE KINASE Stat LAB 11/14/22 19:30 Completed LACTIC ACID Stat LAB 11/14/22 19:30 Completed PROCALCITONIN Stat LAB 11/14/22 19:30 Completed TROPONIN I Q8H LAB 11/15/22 03:30 Ordered TROPONIN I Q8H LAB 11/15/22 11:30 Ordered TROPONIN I Stat LAB 11/14/22 19:30 Completed VENOUS BLOOD GAS Stat LAB 11/14/22 19:45 Completed 0.9 % Sodium Chloride [Saline Flush] MEDS 11/14/22 19:16 Active 1 syr IVF PRN PRN Azithromycin [Zithromax] MEDS 11/14/22 21:22 Discontinued 500 mg PO ONCE STA Ceftriaxone/D5w 1 gm Premix [Rocephin 1 gm/50 ml D5w] MEDS 11/15/22 09:00 Active 1 gm in 50 ml IV DAILY Ceftriaxone/D5w 1 gm Premix [Rocephin 1 gm/50 ml D5w] MEDS 11/14/22 20:52 Discontinued 1 gm in 50 ml IV ONCE Enoxaparin Sodium [Lovenox] MEDS 11/15/22 09:00 Active 40 mg SUBCUT DAILY Insulin Regular, Human [Humulin R] MEDS 11/14/22 21:22 Active See Protocol SUBCUT PRN PRN Ipratropium/Albuterol Neb [Duoneb] MEDS 11/14/22 19:16 Discontinued 3 ml NEB ONCE STA Ipratropium/Albuterol Neb [Duoneb] MEDS 11/14/22 21:22 Discontinued 3 ml NEB ONCE STA Lorazepam [Ativan] MEDS 11/14/22 19:16 Discontinued 1 mg IVP ONCE ONE Methylprednisolone Sod Succ/Pf [Solu-Medrol 125 mg] MEDS 11/14/22 19:16 Discontinued 125 mg IVP ONCE ONE Methylprednisolone Sod Succ/Pf [Solu-Medrol 125 mg] MEDS 11/15/22 00:00 Active 125 mg IVP Q6HR Ondansetron HCl/Pf [Zofran 4 mg/2 ml] MEDS 11/14/22 21:22 Active 4 mg IVP Q6H PRN RESUSCITATION STATUS Routine OTHERS 11/14/22 21:06 Ordered CHEST, 1V AP ONLY Stat RADS 11/14/22 19:16 Completed Medications Generic Name Dose Route Start Last Admin Trade Name Freq PRN Reason Stop Dose Admin Hydrocodone Bitart/Acetaminophen 1 tab 11/14/22 22:08 11/14/22 22:52 Hydrocodone Bit/Acetaminophen 7.5/325 Mg Tablet PO 1 tab QID PRN Administration Severe Pain Alprazolam 0.5 mg 11/15/22 09:00 Alprazolam 0.5 Mg Tablet PO TID NAMAN Aspirin 81 mg 11/14/22 22:30 11/14/22 22:53 Aspirin 81 Mg Tab.Chew PO 81 mg DAILY NAMAN Administration Budesonide/Formoterol Fumarate 2 puff 11/15/22 09:00 Budesonide/Formoterol Fumarate 160/4.5 Mcg Inhaler IH BID [facility] Diltiazem HCl 60 mg 11/15/22 09:00 Diltiazem Hcl 60 Mg Tablet PO BID [facility] Enoxaparin Sodium 40 mg 11/15/22 09:00 Enoxaparin Sodium 40 Mg/0.4 Ml Syr SUBCUT DAILY [facility] Gabapentin 400 mg 11/15/22 09:00 Gabapentin 100 Mg Capsule PO TID [facility] CEFTRIAXONE/D5W 1 GM PREMIX 1 gm in 50 mls @ 75 mls/hr 11/15/22 09:00 Rocephin 1 Gm/50 Ml D5w IV 11/18/22 08:59 DAILY [facility] Insulin Human Regular 0 unit 11/14/22 21:22 Insulin Regular, Human 100 Unit/Ml (3ml) Vial SUBCUT PRN PRN Hyperglycemia Protocol Levothyroxine Sodium 50 mcg 11/15/22 06:30 Levothyroxine Sodium 50 Mcg Tablet PO 0630 NAMAN Lorazepam 0.5 mg 11/14/22 22:08 11/14/22 22:53 Lorazepam 0.5 Mg Tablet PO 0.5 mg QID PRN Administration ANXIETY Losartan Potassium 25 mg 11/15/22 09:00 Losartan Potassium 25 Mg Tablet PO DAILY NAMAN Metformin HCl 500 mg 11/15/22 09:00 Metformin Hcl 500 Mg Tablet PO BIDWM NAMAN Methylprednisolone Sodium Succinate 125 mg 11/15/22 00:00 11/14/22 23:00 Methylprednisolone Sod Succ/Pf 125 Mg/2 Ml Vial IVP 125 mg Q6HR NAMAN Administration Mirtazapine 7.5 mg 11/14/22 22:30 11/14/22 22:53 Mirtazapine 15 Mg Tablet PO 7.5 mg BEDTIME NAMAN Administration Ondansetron HCl 4 mg 11/14/22 21:22 Ondansetron Hcl/Pf 4 Mg/2 Ml Sdv IVP Q6H PRN Nausea / Vomiting Ondansetron HCl 4 mg 11/14/22 22:08 Ondansetron Hcl 4 Mg Tab.Rapdis PO Q8H PRN Nausea and vomiting Pravastatin Sodium 80 mg 11/15/22 09:00 Pravastatin Sodium 40 Mg Tablet PO DAILY NAMAN Sodium Chloride 1 syr 11/14/22 19:16 11/14/22 23:00 0.9% Sodium Chloride 10 Ml Disp.Syrin IVF 1 syr PRN PRN Administration To flush IV Tiotropium [place] 1 cap 11/15/22 09:00 Tiotropium [place] 18 Mcg Cap.W.Dev IH DAILY NAMAN Tizanidine HCl 4 mg 11/14/22 22:08 Tizanidine Hcl 4 Mg Tablet PO Q8H PRN Muscle spasms Discontinued Medications Generic Name Dose Route Start Last Admin Trade Name Freq PRN Reason Stop Dose Admin Albuterol/Ipratropium 3 ml 11/14/22 19:16 11/14/22 19:30 Ipratropium/Albuterol Vial.Alejo PINTO 11/14/22 19:17 3 ml ONCE STA Administration Albuterol/Ipratropium 3 ml 11/14/22 21:22 Ipratropium/Albuterol Vial.Alejo PINTO 11/14/22 21:23 ONCE STA Azithromycin 500 mg 11/14/22 21:22 11/14/22 22:53 Azithromycin 250 Mg Tablet PO 11/14/22 21:23 500 mg ONCE STA Administration Enalaprilat 1.25 mg 11/14/22 22:06 11/14/22 22:11 Enalaprilat Dihydrate 1.25 Mg/Ml Vial IVP 11/14/22 22:07 1.25 mg ONCE ONE Administration CEFTRIAXONE/D5W 1 GM PREMIX 1 gm in 50 mls @ 75 mls/hr 11/14/22 20:52 11/14/22 21:50 Rocephin 1 Gm/50 Ml D5w IV 11/14/22 21:31 75 mls/hr ONCE STA Administration Lorazepam 1 mg 11/14/22 19:16 11/14/22 19:46 Lorazepam Inj 2 Mg/Ml Vial IVP 11/14/22 19:17 1 mg ONCE ONE Administration Methylprednisolone Sodium Succinate 125 mg 11/14/22 19:16 11/14/22 19:46 Methylprednisolone Sod Succ/Pf 125 Mg/2 Ml Vial IVP 11/14/22 19:17 125 mg ONCE ONE Administration Non-Formulary Medication 2 inh 11/15/22 09:00 [id number] [Trelegy Ellipta] IH DAILY NAMAN Vital Signs: Temp Pulse Resp BP Pulse Ox 11/14/22 18:59 98 F 91 100 H 182/97 H 100 Discharge Plan Discharge Patient Disposition: ADMITTED INPATIENT Discharge Problem: Chest pain, Pneumonia COPD (chronic obstructive pulmonary disease) Qualifiers: COPD type: COPD with acute lower respiratory infection Qualified Code(s): J44.0 - Chronic obstructive pulmonary disease with (acute) lower respiratory infection Did you review [place] [employer] for ALL controlled substances?: Not Applicable ED Provider: SEKOU GOLDBERG Condition: Fair Physician Progress Note: []
[2022-11-14 19:40] LABS: BASOPHILS % (AUTO) 0.3 % (0.0-3.0); EOSINOPHILS # (AUTO) 0.1 K/ul (0.0-0.7); EOSINOPHILS % (AUTO) 1.6 % (0.0-7.0); HEMATOCRIT 31.7 % (37.0-47.0); HEMOGLOBIN 10.9 g/dl (12.0-16.0); IMMATURE GRANULOCYTE % (AUTO) 0.6 % (0.0-5.0); LYMPHOCYTES # (AUTO) 2.1 K/uL (0.60-3.4); LYMPHOCYTES % (AUTO) 33.4 (10.0-50.0); MEAN CORPUSCULAR HEMOGLOBIN 29.9 pg (27.0-31.0); MEAN CORPUSCULAR HGB CONC 34.4 (31.8-35.4); MEAN CORPUSCULAR VOLUME 86.8 fl (81.0-99.0); MONOCYTES # (AUTO) 0.5 K/uL (0.4-2.0); MONOCYTES % (AUTO) 7.7 (0-10); NEUTROPHILS # (AUTO) 3.6 K/ul (2.0-6.9); NEUTROPHILS % (AUTO) 56.4 % (42.2-75.2); PLATELET COUNT 239 10^3/uL (140-440); RDW COEFFICIENT OF VARIATION 13.3 % (11.6-14.8); RED BLOOD COUNT 3.65 10^6/ul (4.20-5.40); WHITE BLOOD COUNT 6.37 K/ul (4.6-10.2)
[2022-11-14 19:53] LABS: ALANINE AMINOTRANSFERASE 17.1 U/L (0-35); ALKALINE PHOSPHATASE 92.1 U/L (53-141); ASPARTATE AMINO TRANSFERASE 17.8 U/L (14-36); BILIRUBIN,TOTAL 0.75 mg/dL (0.2-1.3); BLOOD UREA NITROGEN 14.1 mg/dL (7-17); CHLORIDE 105.8 mmol/L (98-107); CREATINE KINASE 48.9 U/L (30-135); CREATININE 0.65 mg/dL (0.60-1.30); GLUCOSE 184.4 mg/dL (74-106); POTASSIUM 3.63 mmol/L (3.5-5.1); SODIUM 138.4 mmol/L (134.5-145); TOTAL PROTEIN 7.01 g/dL (6.3-8.2)
[2022-11-14 20:03] LABS: VBG HCO3 26.9 (22-26); VBG OXYGEN SATURATION 97.7 (60-80); VBG PH 7.56 (7.30-7.40)
[2022-11-14 20:05] LABS: TROPONIN I < 0.012 ng/ml (0.0000-0.120)
--- NOTE | 2022-11-14 20:14 | DI ---
EXAM: CHEST FRONTAL VIEW HISTORY: Shortness of breath COMPARISON: 07/08/2022 FINDINGS: Cardiomegaly is again noted. Scoliosis skews anatomy. It would be difficult to exclude s ome infiltrate in the right perihilar region. Lungs are otherwise unremarkable. No visible pleural fluid or pneumothorax. IMPRESSION: 1. Scoliosis skews anatomy. It would be difficult to exclude infiltrate in the right perihilar laureen on. Lungs are otherwise unremarkable. If symptoms persist, consider follow up with full inspiration , standing two-view chest radiography using PA and lateral technique.
[2022-11-14 20:45] LABS: SARS COV-2 RNA RAPID NAAT NEGATIVE (NEGATIVE)
[2022-11-14] MEDS ORDERED: ROCEPHIN 1 GM/50 ML D5W 1 GM/50 ML BAG IV STA (20:52)
[2022-11-14] MEDS ORDERED: ZOFRAN 4 MG/2 ML IVP PRN (21:22)
[2022-11-14] MEDS ORDERED: ZITHROMAX PO STA (21:22)
[2022-11-14] MEDS ORDERED: VASOTEC IV IVP ONE (22:06)
[2022-11-14] MEDS ORDERED: ZANAFLEX PO PRN (22:08)
[2022-11-14] MEDS ORDERED: ZOFRAN ODT PO PRN (22:08)
[2022-11-14] MEDS: NORCO 7.5-325 PO PRN (22:52)
[2022-11-14] MEDS: ASPIRIN CHEWABLE PO SCH (22:53)
[2022-11-14] MEDS: REMERON PO SCH (22:53)
[2022-11-14] MEDS: ATIVAN PO PRN (22:53)
[2022-11-14] MEDS: SOLU-MEDROL 125 MG IVP SCH (23:00)
[2022-11-14 23:28] VITALS: BMI 34.9
[2022-11-15 03:37] LABS: BASOPHILS % (AUTO) 0.6 % (0.0-3.0); EOSINOPHILS % (AUTO) 0.4 % (0.0-7.0); HEMATOCRIT 34.6 % (37.0-47.0); HEMOGLOBIN 11.7 g/dl (12.0-16.0); IMMATURE GRANULOCYTE # (AUTO) 0.1 (0.0-1.0); LYMPHOCYTES # (AUTO) 0.5 K/uL (0.60-3.4); LYMPHOCYTES % (AUTO) 10.4 (10.0-50.0); MEAN CORPUSCULAR HEMOGLOBIN 29.5 pg (27.0-31.0); MEAN CORPUSCULAR HGB CONC 33.8 (31.8-35.4); MEAN CORPUSCULAR VOLUME 87.4 fl (81.0-99.0); MONOCYTES # (AUTO) 0.1 K/uL (0.4-2.0); NEUTROPHILS # (AUTO) 4.4 K/ul (2.0-6.9); NEUTROPHILS % (AUTO) 86.6 % (42.2-75.2); PLATELET COUNT 246 10^3/uL (140-440); RDW COEFFICIENT OF VARIATION 13.2 % (11.6-14.8); RED BLOOD COUNT 3.96 10^6/ul (4.20-5.40); WHITE BLOOD COUNT 5.09 K/ul (4.6-10.2)
[2022-11-15 03:50] LABS: BLOOD UREA NITROGEN 17.1 mg/dL (7-17); CALCIUM 9.64 mg/dL (8.4-10.2); CARBON DIOXIDE 27.4 mmol/L (22-30.0); CREATINE KINASE 47.5 U/L (30-135); CREATININE 0.62 mg/dL (0.60-1.30); GLUCOSE 273.7 mg/dL (74-106); POTASSIUM 4.46 mmol/L (3.5-5.1); SODIUM 138.5 mmol/L (134.5-145)
[2022-11-15 04:04] LABS: TROPONIN I < 0.012 ng/ml (0.0000-0.120)
[2022-11-15] MEDS: SYNTHROID PO SCH (05:46)
[2022-11-15] MEDS: HUMULIN R SUBCUT PRN ×4 (05:46→21:41)
[2022-11-15] MEDS: ATIVAN PO PRN (05:46)
[2022-11-15] MEDS: SOLU-MEDROL 125 MG IVP SCH ×4 (05:46→23:14)
[2022-11-15] MEDS ORDERED: NON-FORMULARY MEDICATION (Fluticasone-Umeclidin-Vilanter [Trelegy Ellipta] 200-62.5-25 mcg IH SCH (09:00)
[2022-11-15] MEDS: XANAX PO SCH ×3 (09:05→21:40)
[2022-11-15] MEDS: NEURONTIN PO SCH ×3 (09:05→21:40)
[2022-11-15] MEDS: ASPIRIN CHEWABLE PO SCH (09:06)
[2022-11-15] MEDS: GLUCOPHAGE PO SCH ×2 (09:06→16:42)
[2022-11-15] MEDS: PRAVACHOL PO SCH (09:06)
[2022-11-15] MEDS: CARDIZEM PO SCH ×2 (09:07→21:40)
[2022-11-15] MEDS: NORCO 7.5-325 PO PRN ×2 (09:07→21:40)
[2022-11-15] MEDS: COZAAR PO SCH (09:07)
[2022-11-15] MEDS: SYMBICORT 160-4.5 MCG INHALER IH SCH ×2 (09:08→21:45)
[2022-11-15] MEDS: SPIRIVA IH SCH (09:09)
[2022-11-15] MEDS: LOVENOX SUBCUT SCH (09:09)
--- NOTE | 2022-11-15 09:12 | PCM.PROG ---
Date Seen by Provider: 11/15/22 Time Seen by Provider: 09:00 Subjective: Complains of neuropathic pain and dyspnea. Objective: Vitals: T=98.3 F, P=89, R=18, GX=265/69, SPO2=97 Patient alert and in NAD. She is breathing without distress. HEENT: [] Neck: [] Lungs: [] Breath sounds decreased bilaterally. A few scattered wheezes. CVS: [] RRR Abdomen: [] Extremities: [] Neurological: [] Skin: [] Lab/Tests/Diagnostic Imaging: [] (1) Acute exacerbation of chronic obstructive pulmonary disease: Status: Resolved Code(s): J44.1 - Chronic obstructive pulmonary disease with (acute) exacerbation SNOMED Code(s): 735336474 (2) Neuropathic pain: Status: Inactive Code(s): M79.2 - Neuralgia and neuritis, unspecified SNOMED Code(s): 418356669 Plan: Continue duonebs and steroids. Patient unable to tolerate higher dose of gabapentin. [place] for pain.
[2022-11-15] MEDS: ROCEPHIN 1 GM/50 ML D5W 1 GM/50 ML BAG IV SCH (10:04)
[2022-11-15 12:19] LABS: CREATINE KINASE 40.2 U/L (30-135)
[2022-11-15 12:47] LABS: TROPONIN I < 0.012 ng/ml (0.0000-0.120)
[2022-11-15] MEDS ORDERED: TYLENOL PO PRN (18:17)
[2022-11-15] MEDS: REMERON PO SCH (21:40)
[2022-11-16 05:31] LABS: BASOPHILS % (AUTO) 0.2 % (0.0-3.0); EOSINOPHILS % (AUTO) 0.2 % (0.0-7.0); HEMATOCRIT 33.8 % (37.0-47.0); HEMOGLOBIN 11.3 g/dl (12.0-16.0); IMMATURE GRANULOCYTE # (AUTO) 0.1 (0.0-1.0); IMMATURE GRANULOCYTE % (AUTO) 1.1 % (0.0-5.0); LYMPHOCYTES # (AUTO) 0.6 K/uL (0.60-3.4); MEAN CORPUSCULAR HEMOGLOBIN 29.1 pg (27.0-31.0); MEAN CORPUSCULAR HGB CONC 33.4 (31.8-35.4); MEAN CORPUSCULAR VOLUME 87.1 fl (81.0-99.0); MONOCYTES # (AUTO) 0.1 K/uL (0.4-2.0); MONOCYTES % (AUTO) 1.6 (0-10); NEUTROPHILS # (AUTO) 4.8 K/ul (2.0-6.9); NEUTROPHILS % (AUTO) 85.9 % (42.2-75.2); PLATELET COUNT 223 10^3/uL (140-440); RDW COEFFICIENT OF VARIATION 13.2 % (11.6-14.8); RED BLOOD COUNT 3.88 10^6/ul (4.20-5.40); WHITE BLOOD COUNT 5.57 K/ul (4.6-10.2)
[2022-11-16 05:40] LABS: BLOOD UREA NITROGEN 26.8 mg/dL (7-17); CALCIUM 9.66 mg/dL (8.4-10.2); CARBON DIOXIDE 27.8 mmol/L (22-30.0); CHLORIDE 106.9 mmol/L (98-107); CREATININE 0.64 mg/dL (0.60-1.30); GLUCOSE 274.9 mg/dL (74-106); POTASSIUM 4.46 mmol/L (3.5-5.1); SODIUM 138.9 mmol/L (134.5-145)
[2022-11-16] MEDS: SOLU-MEDROL 125 MG IVP SCH ×2 (05:55→13:37)
[2022-11-16] MEDS: SYNTHROID PO SCH (05:56)
[2022-11-16] MEDS: HUMULIN R SUBCUT PRN ×4 (05:57→21:12)
[2022-11-16] MEDS: SPIRIVA IH SCH (08:35)
[2022-11-16] MEDS: SYMBICORT 160-4.5 MCG INHALER IH SCH ×2 (08:35→20:40)
[2022-11-16] MEDS: ASPIRIN CHEWABLE PO SCH (08:37)
[2022-11-16] MEDS: NEURONTIN PO SCH ×3 (08:37→20:39)
[2022-11-16] MEDS: CARDIZEM PO SCH ×2 (08:37→20:39)
[2022-11-16] MEDS: XANAX PO SCH ×3 (08:37→21:41)
[2022-11-16] MEDS: COZAAR PO SCH (08:38)
[2022-11-16] MEDS: LOVENOX SUBCUT SCH (08:38)
[2022-11-16] MEDS: ROCEPHIN 1 GM/50 ML D5W 1 GM/50 ML BAG IV SCH (08:38)
[2022-11-16] MEDS: GLUCOPHAGE PO SCH ×2 (08:38→17:18)
[2022-11-16] MEDS: PRAVACHOL PO SCH (08:38)
[2022-11-16] MEDS ORDERED: DUONEB NEB PRN (13:44)
--- NOTE | 2022-11-16 13:45 | PCM.PROG ---
Date Seen by Provider: 11/16/22 Time Seen by Provider: 13:41 Subjective: dx. copd, pneumonia Objective: Vitals: T=97.7 F, P=88, R=18, RR=151/77, SPO2=99 HEENT: []conjunctiva clear Neck: []supple Lungs: [] wheezing CVS: []rrr Abdomen: []nondistended Extremities: []normal color Neurological: []alert Skin: []pink Lab/Tests/Diagnostic Imaging: [] wbc 11., bun 26, K+4.4 (1) Acute exacerbation of chronic obstructive pulmonary disease: Status: Resolved Code(s): J44.1 - Chronic obstructive pulmonary disease with (acute) exacerbation SNOMED Code(s): 593939695 (2) Neuropathic pain: Status: Inactive Code(s): M79.2 - Neuralgia and neuritis, unspecified SNOMED Code(s): 296506495 Plan: duo neb q6prn, ot/pt consult for wheelchair, pt requests hospice placement eval, continue Rocephin/zithromax, decrease solumedrol to 40 q6
[2022-11-16] MEDS: SOLU-MEDROL 40 MG IVP SCH ×3 (13:56→23:10)
--- NOTE | 2022-11-16 16:14 | RS.PTINEVL ---
Subjective Patient information Date of Evaluation: 11/16/22 Date of Arrival on Unit: 11/14/22 Admitted From:: Home Diagnosis: COPD exacerbation, neuralgia Usual Living Arrangement: Alone Living Arrangement Comments: lives alone Home Environment: House, Stairs (few) and Rail Medical History: Hypertension, COPD, Diabetes and Arthritis Medical History Comments:: depression, GERD, anemia, cervical radiculopathy Medications: see chart Subjective Information/ Patient Comments:: pt states that she wants a w/c so she can wheel around to strengthen legs. Discussion with patient that she is a fall risk and that would not be safe, however PT can work with her on LE strengthening. 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 has help at home Current Level of Function: Partially Dependent Current Equipment Used at Home: ROLLATOR, 02, GLUCOMETER Interventions Objective Patient Orientation: Person and Place Current Interventions: Oxygen and Telemetry Observation: pt very [place], min non pitting edema BLE Range of Motion ROM Right Upper Extremity AROM: WFL's Left Upper Extremity AROM: WFL's Right Lower Extremity AROM: WFL's Left Lower Extremity AROM: WFL's Muscle Strength Muscle Strength Right Upper Extremity: Mild Weakness (grossly 4/5 ) Left Upper Extremity: Mild Weakness (grossly 4/5 ) Right Lower Extremity: Mild Weakness (hip flex 4-/5, knee flex/ext 4/5, ankle DF/PF 4/5 ) Left Lower Extremity: Mild Weakness (hip flex 4-/5, knee flex/ext 4/5, ankle DF/PF 4/5 ) Sensation Sensation Right Upper Extremity: Impaired (n/t and pain into R hand due to neuralgia) Left Upper Extremity: Intact/Normal Right Lower Extremity: Impaired (occasional n/t ) Left Lower Extremity: Impaired (occasional n/t ) Palpation Palpation Findings: None/Normal Balance Sitting Balance and Reactions Static Sitting Balance: Good Dynamic Sitting Balance: Fair Standing Balance and Reactions Static Standing Balance: Poor Dynamic Standing Balance: Poor Standing Equilibrium Reactions: Delayed Left and Delayed Right Standing Protective Reactions: Delayed Left and Delayed Right Functional Mobility Bed Mobility Rolling R/L: Supervision Supine to Sit: Supervision Sit to Supine: CGA Transfers Sit to Stand: CGA Stand to Sit: CGA Safety Awareness Safety Awareness: Fair SARAH INDEX SCORE: n/a Ambulation Ambulation Assistive Device Used: Rolling Walker Orthotic/Prosthetic Device: No Distance: 140ft with O2 Assistance needed with Ambulation: CGA Quality of Ambulation: pt with shuffling gait, decreased step length Gait Deviations: Forward posture and Short stride Factors Affecting Ambulation: Decreased Balance, Breathing/O2 Saturation, Pain, Weakness, Decreased Coordination, Decreased Safety and Limited Endurance Treatment time Time with patient Length of Evaluation: 19 Total treatment time: 22 Patient Education Education Patient Education: Activity Modification and Education of Plan of Care Teaching Recipient: Patient Teaching Methods: Discussion Assessment Assessment Problem List:: Decreased level of function, Requires training/education, Decreased safety/Risk of falls and Weakness Rehab Potential: Good Further Therapy Indicated?: Yes Candidate for Swing Bed for Therapy Services?: Feel pt may not be a candidate due to higher functional level Evaluation Complexity: HISTORY: Medium, EXAM OF BODY SYSTEMS: Medium, CLINICAL PRESENTATION: Medium and CLINICAL DECISION MAKING: Medium Patient's Goal(s): Get my legs a little stronger Short Term Goals GOAL #1: Independent with bed mobility Goal to be met by: 11/18/22 GOAL #2: Transfer sup to/from sit independently Goal to be met by: 11/18/22 GOAL #3: Transfer sit to/from stand SBA Goal to be met by: 11/18/22 GOAL #4: pt amb with rwx 125ft with O2 SBA with no LOB Goal to be met by: 11/18/22 GOAL #5: Improve BLE strength 4 to 4+/5 Goal to be met by: 11/18/22 Senior Living Goals GOAL #1: Transfer sup to/from sit to/from stand independently. Goal to be met by: 11/20/22 GOAL #2: pt amb with rwx functional household distances with O2 SBA Goal to be met by: 11/20/22 GOAL #3: Improve dyn stand balance fair Goal to be met by: 11/20/22 Plan Plan of Care: Therapeutic EX and Therapeutic Activity Other:: gait training Frequency of Treatment: 1-2 X day, as tolerated Duration of Treatment: 5 days Anticipated Discharge Destination: Home Treatment Diagnosis (ICD 10 Codes): difficulty walking R 26.2 impaired balance R 26.81 weakness M62.81 Has the Physician been added for Co-signature?: Yes
[2022-11-16] MEDS: ATIVAN PO PRN (19:31)
[2022-11-16] MEDS: REMERON PO SCH (20:40)
[2022-11-17] MEDS: SOLU-MEDROL 40 MG IVP SCH (05:30)
[2022-11-17] MEDS: HUMULIN R SUBCUT PRN ×2 (05:47→11:23)
[2022-11-17] MEDS: SYNTHROID PO SCH (05:47)
[2022-11-17 06:01] VITALS: BP 169/79; TEMP 97.4
[2022-11-17] MEDS: ROCEPHIN 1 GM/50 ML D5W 1 GM/50 ML BAG IV SCH (08:42)
[2022-11-17] MEDS: SYMBICORT 160-4.5 MCG INHALER IH SCH (08:44)
[2022-11-17] MEDS: SPIRIVA IH SCH (08:45)
[2022-11-17] MEDS: NEURONTIN PO SCH (08:46)
[2022-11-17] MEDS: ASPIRIN CHEWABLE PO SCH (08:46)
[2022-11-17] MEDS: GLUCOPHAGE PO SCH (08:47)
[2022-11-17] MEDS: XANAX PO SCH (08:47)
[2022-11-17] MEDS: COZAAR PO SCH (08:48)
[2022-11-17] MEDS: PRAVACHOL PO SCH (08:48)
[2022-11-17] MEDS: LOVENOX SUBCUT SCH (08:48)
--- NOTE | 2022-11-17 09:41 | PCM.PROG ---
Date Seen by Provider: 11/17/22 Time Seen by Provider: 09:39 Subjective: Patient asking to go home. No complaints. Objective: Vitals: T=97.4 F, P=52, R=18, XO=139/79, SPO2=98 Alert. Breathing without distress. HEENT: [] Neck: [] No JVD Lungs: [] Breath sounds decreased but equal. Scattered wheezes. CVS: [] RRR Abdomen: [] Extremities: [] No edema. Neurological: [] Skin: [] Lab/Tests/Diagnostic Imaging: [] (1) Acute exacerbation of chronic obstructive pulmonary disease: Status: Resolved Code(s): J44.1 - Chronic obstructive pulmonary disease with (acute) exacerbation SNOMED Code(s): 751987983 (2) Neuropathic pain: Status: Inactive Code(s): M79.2 - Neuralgia and neuritis, unspecified SNOMED Code(s): 381164712 Plan: Will discharge patient. Follow up with Dr Lacy within one week.
--- NOTE | 2022-11-17 09:46 | PCM.DC ---
Final Diagnosis: acute exacerbation of COPD neuropathic pain Physical Exam Appearance: Ill-appearing (Chronically ill appearing.), No pain distress, Well- nourished, Obese and Other (Patient breathing without difficulty) Ill-appearing: Mild Pain Distress: None Eyes: Not Examined ENT: Nose normal and Oropharynx normal Neck: Supple Respiratory: Airway patent, Breath sounds equal, Breath sounds diminished and Wheezes Cardiovascular: RRR, No rub and No murmur GI/: Soft, Nontender, No masses and Bowel sounds normal Musculoskeletal: Normal strength and No edema Skin: Warm, Dry and Normal color Neurological: Alert and Oriented Psychiatric: Affect appropriate and Mood appropriate (1) Acute exacerbation of chronic obstructive pulmonary disease: Status: Resolved Code(s): J44.1 - Chronic obstructive pulmonary disease with (acute) exacerbation SNOMED Code(s): 893596348 (2) Neuropathic pain: Status: Inactive Code(s): M79.2 - Neuralgia and neuritis, unspecified SNOMED Code(s): 803989197 Reason for Hospitalization: acute exacerbation of COPD Prognosis/Condition at Discharge: Condition at discharge was stable. Medications at Discharge: Patient discharged on the same medications as at admission. Education Provided to Patient and Family: COPD Follow-ups: Follow up with Dr Lacy within one week. Discharge Disposition: Home Hospital Course: Patient received therapy for exacerbation of COPD. She improved clinically and was discharged to home on 11/17/22. Plan: Discharge to home.
[2022-11-17] MEDS: CARDIZEM PO SCH (11:43)
== END 2022-11-17 12:53 | disposition hospice, home (50) | DRG 192 ==
LOC: ED 18:57 → MEDSURG A 21:38
PROVIDERS: ADMIT Internal Medicine Geriatric Medicine; ATTEND Surgery
DX: Z20.822 Contact with and (suspected) exposure to COVID-19; I10 Essential (primary) hypertension; Z79.82 Long term (current) use of aspirin; J44.1 Chronic obstructive pulmonary disease with (acute) exacerbation; M62.81 Muscle weakness (generalized); Z51.81 Encounter for therapeutic drug level monitoring; F17.210 Nicotine dependence, cigarettes, uncomplicated; Z79.84 Long term (current) use of oral hypoglycemic drugs; M79.2 Neuralgia and neuritis, unspecified; E11.9 Type 2 diabetes mellitus without complications; Z79.899 Other long term (current) drug therapy; R26.2 Difficulty in walking, not elsewhere classified